=== PATIENT | male | born 1940 | race Caucasian/White ===

== ENCOUNTER 2021-03-09 19:01 | Observation (INO) | payer MEDICARE, OTHER, SELFPAY ==
[2021-03-09] VITALS (8 sets, daily range): BP systolic 135–189; BP diastolic 76–90; PULSE 50–61; RESP 14–18; TEMP 36.6–36.8; O2SAT 95–97; BMI 27.3
[2021-03-09 20:19] LABS: Absolute Neutrophil Count 3.4 X10^3/uL (2.0-7.7); Basophil# 0.02 X10^3/uL; Basophil% 0.4 % (0-1); Eosinophil# 0.08 X10^3/uL; Eosinophils% 1.6 % (0-5); Hematocrit 41.1 % (40-54); Hemoglobin 13.1 g/dL (13.0-16.5); Lymphocyte % 18.5 % (19-41); Mean Corp Hgb Conc 31.9 g/dL (32-36); Mean Corpuscular Hgb 31.3 pg (27.0-32.0); Mean Corpuscular Volume 98.1 fL (80-94); Mean Platelet Vol. 10.5 fl (6.2-12.0); Monocyte# 0.44 X10^3/uL; Monocyte% 9.1 % (0-10); NRBC Flagged by Analyzer 0 % (0-5); Neutrophil # 3.39 X10^3/uL (2.7-7.7); Neutrophil % 69.8 % (47-70); POSITIVE COUNT YES; Platelet Count 60 K/mm3 (150-450); RBC Distribution Width CV 13.2 % (11.6-14.6); RBC Distribution Width SD 48.1 fl (35.1-43.9); Red Blood Count 4.19 M/mm3 (4.6-6.2); White Blood Count 4.9 K/mm3 (4.4-11.0)
[2021-03-09 20:22] LABS: Differential Indicated SCAN CRITERIA MET
[2021-03-09 20:30] LABS: Anion Gap 6 (5-15); BUN 25 mg/dL (7-18); BUN/Creat Ratio 20.2 RATIO (10-20); Calcium,Total 9.2 mg/dL (8.5-10.1); Chloride 113 mmol/L (98-107); Creatinine, Serum 1.24 mg/dL (0.70-1.30); EST Glomerular Filtration Rate 59 mL/min (>60); Est Glom Filt Rate - Afr Amer 72 mL/min (>60); Glucose 115 mg/dL (74-106); Potassium 4.2 mmol/L (3.5-5.1); Sodium Level 143 mmol/L (136-145)
[2021-03-09 20:35] LABS: Platelet Estimate MOD DEC (ADEQ)
[2021-03-09 20:36] LABS: Red Cell Morphology N CHROM NORMAL (NORM C&C)
[2021-03-09 20:40] LABS: Anisocytosis RARE; Macrocytosis RARE; Ovalocyte RARE
[2021-03-09] MEDS: 0.9% Normal Saline 1,000 ML 150 ML IV (21:09)
--- NOTE | 2021-03-09 21:53 | EX.ED.DYSGE1 ---
HPI History of Present Illness Chief Complaint: GI Bleed Informant: patient and spouse/S.O. Onset/Context/Timing Onset: Yesterday Current Severity: Moderate Maximum Severity: Moderate Narrative Narrative: Patient presents secondary to bright red blood per rectum. Patient states symptoms started last night. Today he has had 6 episodes where he feels like he is having diarrhea only to find that he is passing straight blood. He does report some mild rectal pressure but no abdominal pain. No fever or chills. No nausea or vomiting. Prior colonoscopies in the past have revealed benign polyps. He denies any problem with hemorrhoids. He takes a baby aspirin every other day but no other anticoagulants. [facility] Medical History High cholesterol History of COVID-19 Hx of fracture of rib Hypertension Home Medications amlodipine 5 mg PO DAILY 03/09/21 [History Last Taken Unknown] aspirin [Ecotrin Low Strength] 81 mg PO QODAY 03/09/21 [History Last Taken Unknown] citalopram 20 mg PO DAILY 03/09/21 [History Last Taken Unknown] finasteride 5 mg PO DAILY 03/09/21 [History Last Taken Unknown] fluticasone furoate 50 mcg INHALATION DAILY 03/09/21 [History Last Taken Unknown] ropinirole 0.25 mg PO PRN PRN 03/09/21 [History Last Taken Unknown] rosuvastatin 10 mg PO QODAY 03/09/21 [History Last Taken Unknown] tamsulosin 0.4 mg PO BID 03/09/21 [History Last Taken Unknown] valsartan 80 mg PO DAILY 03/09/21 [History Last Taken Unknown] Allergy/AdvReac Type Severity Reaction Status Date / Time amoxicillin [From Augmentin] Allergy Other Verified 03/09/21 19:04 clavulanic acid Allergy Other Verified 03/09/21 19:04 [From Augmentin] lisinopril AdvReac Other Verified 03/09/21 19:04 Social History Smoking Status: Current some day smoker tobacco type: cigarettes ROS ROS ED Constitutional Constitutional ED: Denies chills or fever(s) Eyes Eyes: Denies change in vision ENT ENT ED: Denies sore throat Cardiovascular Cardiovascular: Denies chest pain Respiratory/Chest Respiratory/Chest: Denies cough or dyspnea Gastrointestinal Gastrointestinal: Reports other Details: Hematochezia ; Denies abdominal pain, diarrhea, nausea or vomiting Genitourinary Genitourinary ED: Denies dysuria Musculoskeletal Musculoskeletal: Denies back pain Integumentary Denies rash Neurologic Neurologic: Denies headache(s) or weakness Psychiatric Psychiatric: Denies anxiety or depression Allergic/Immunologic Allergic/Immunologic ED: Denies urticaria EXAM Physical Exam Const Vital Signs: 03/09/21 19:04 03/09/21 21:11 Temperature 98.3 F Temperature Source Temporal Pulse Rate 61 50 L Respiratory Rate 14 18 Blood Pressure 135/83 H 189/90 H Blood Pressure Mean 100 123 Pulse Ox 97 Oxygen Delivery Method Room Air Room Air Positive well nourished and well developed General Appearance ED: well developed HEENT Reports normocephalic and head/scalp atraumatic Eyes PERRL and EOMs intact bilaterally Neck supple Chest Wall inspection of chest normal and palpation of chest normal Resp normal respiratory effort and clear to auscultation bilaterally Cardio regular rate and regular rhythm GI normal to inspection, nondistended, normoactive bowel sounds GI Narrative: Rectal exam: Noninflamed external hemorrhoid with no obvious scab or source of bleeding. Digital exam reveals no masses or palpable internal hemorrhoids. Palpation: soft Rectal Exam: heme positive stool Extremity normal to inspection Neuro oriented x3 and no sensory deficits noted Sensorium / Orientation: alert Motor Exam: strength 5/5 throughout Psych mental status grossly normal Skin no rashes or lesions noted MDM MDM MDM Narrative Medical decision making narrative: Lab work and stool guaiac was obtained. Patient is given IV fluids. Lab Data Attestation: I reviewed the patient's lab results. Labs: Laboratory Results - last 24 hr 03/09/21 03/09/21 20:09 20:09 WBC 4.9 RBC 4.19 L Hgb 13.1 Hct 41.1 MCV 98.1 H MCH 31.3 MCHC 31.9 L RDW Std Deviation 48.1 H RDW Coeff of Randi 13.2 Plt Count 60 L MPV 10.5 Immature Gran % (Auto) 0.600 Neut % (Auto) 69.8 Lymph % (Auto) 18.5 L [place] % (Auto) 9.1 Eos % (Auto) 1.6 Baso % (Auto) 0.4 Absolute Neuts (auto) 3.4 Absolute Lymphs (auto) 0.90 Nucleated RBC % 0 Platelet Estimate MOD DEC RBC Morphology N CHROM Anisocytosis RARE Macrocytosis RARE Ovalocytes RARE Sodium 143 Potassium 4.2 Chloride 113 H Carbon Dioxide 24.0 Anion Gap 6 BUN 25 H Creatinine 1.24 Estim Creat Clear Calc 45.20 Est GFR (MDRD) Af Amer 72 Est GFR (MDRD) Non-Af 59 L BUN/Creatinine Ratio 20.2 H Glucose 115 H Calcium 9.2 Treatment and Re-Evaluation Comments:: Most recent hemoglobin I could find was from July 2020 at which time it was 14. With the amount of bleeding patient is having I would prefer observation overnight for cycling of labs. Patient's platelet count is low at 60,000. On review of records it was 87,000 in July of this year. Discharge Plan Triage Chief Complaint: GI Bleed ED Provider: Beatriz Bajwa Dx/Rx/DC Orders Clinical Impression: GI bleed Prescriptions: No Action valsartan 80 mg Tablet 80 mg PO DAILY RF: 0 amlodipine 5 mg Tablet 5 mg PO DAILY RF: 0 aspirin [Ecotrin Low Strength] 81 mg Tablet,Delayed Release (Dr/Ec) 81 mg PO QODAY RF: 0 citalopram 20 mg Tablet 20 mg PO DAILY RF: 0 tamsulosin 0.4 mg Capsule 0.4 mg PO BID RF: 0 ropinirole 0.25 mg Tablet 0.25 mg PO PRN PRN (Reason: Sleep) RF: 0 finasteride 5 mg Tablet 5 mg PO DAILY RF: 0 rosuvastatin 10 mg Tablet 10 mg PO QODAY RF: 0 fluticasone furoate 50 mcg/actuation Blister With Device 50 mcg INHALATION DAILY RF: 0 Primary Care Provider: Adam Lynn Referrals: Adam Lynn MD [Primary Care Provider] - Disposition Disposition: Acute Care Hospital [facility]
--- NOTE | 2021-03-09 22:23 | HP.PCM.HOS_ITS ---
[facility] - General General Date of Admission: 03/09/21 HPI Narrative STARLA GALE, is a 80 M with a significant history of benign prostate hypertrophy who presents to the emergency department with bright red blood per rectum. His symptoms started a day before presentation where he had an episode of bright blood red per rectum. On the day of presentation he had about 6 episodes of bright red blood. He denies any nausea, vomiting, or abdominal pain. He reports anorexia. About 20 years ago colonoscopy showed benign polyps. Thereafter he has not had any further colonoscopy. He takes a baby aspirin every other day. He had a COVID-19 virus infection about 4 weeks ago and just got out of quarantine a week before presentation. Emergency department doctor reports non bleeding external hemorrhoids on examination. Of note he reported about 2 months ago he had a fractured rib and follow-up exams showed some spots on his liver and that he has a follow-up appointment in April 2021. [facility] Medical History High cholesterol History of COVID-19 Hx of fracture of rib Hypertension Home Medications amlodipine 5 mg PO DAILY 03/09/21 [History Last Taken Unknown] aspirin [Ecotrin Low Strength] 81 mg PO QODAY 03/09/21 [History Last Taken Unknown] citalopram 20 mg PO DAILY 03/09/21 [History Last Taken Unknown] finasteride 5 mg PO DAILY 03/09/21 [History Last Taken Unknown] fluticasone furoate 50 mcg INHALATION DAILY 03/09/21 [History Last Taken Unknown] ropinirole 0.25 mg PO PRN PRN 03/09/21 [History Last Taken Unknown] rosuvastatin 10 mg PO QODAY 03/09/21 [History Last Taken Unknown] tamsulosin 0.4 mg PO BID 03/09/21 [History Last Taken Unknown] valsartan 80 mg PO DAILY 03/09/21 [History Last Taken Unknown] Allergy/AdvReac Type Severity Reaction Status Date / Time amoxicillin [From Augmentin] Allergy Other Verified 03/09/21 19:04 clavulanic acid Allergy Other Verified 03/09/21 19:04 [From Augmentin] lisinopril AdvReac Other Verified 03/09/21 19:04 Family History Mother Cancer Sister Cancer Other Heart disease Surgical History History of herniorrhaphy Social History Smoking Status: Former smoker ROS ROS Narrative Constitutional: Reports anorexia. Denies change in weight Eyes: Denies blurry vision, change in eye color, change in vision, discharge from eye(s), double vision, erythema, eye pain, loss of vision or other HEENT: Denies abnormal hearing, dysphagia, ear pain, epistaxis, headache(s), hearing loss, nasal congestion, nasal discharge, post nasal drip, sinus pressure, sore throat or other Cardiovascular: Denies chest pain. Denies dyspnea on exertion, orthopnea and paroxysmal nocturnal dyspnea Respiratory/Chest: Denies cough, excessive phlegm production, shortness of breath with exertion and wheezing Gastrointestinal: Reports hematochezia. Denies abdominal pain, coffee ground emesis, constipation, diarrhea, dyspepsia, hematemesis, nausea, vomiting or other Genitourinary: Denies burning urination, difficulty urinating, dysuria, hematuria, nocturia, urinary frequency, urinary hesitancy, urinary incontinence, urinary urgency or other Musculoskeletal: Denies arthralgias, back pain, joint pain, joint stiffness, joint swelling, myalgias, neck pain or other Neurologic: Denies abnormal gait, abnormal speech, confusion, disequilibrium, dizziness, focal weakness, headache(s), numbness, paresthesias, seizure-like activity, seizures, syncope, tingling, tremor(s) or other Psychiatric: Denies anxiety, depression, homicidal ideation, suicidal ideation or other Endocrinology: Denies change in body appearance, cold intolerance, excessive sweating, heat intolerance, polydipsia, polyuria or other Hematologic/Lymphatic: Denies anemia, easy bleeding, easy bruising, lymphadenopathy or other Integumentary: Denies ulcer on buttocks. Allergic/Immunologic: Denies rhinitis, hives, eczema, asthma or other Vital Signs Vital Signs Vital Signs: 03/09/21 19:04 03/09/21 21:11 03/09/21 22:06 Temperature 98.3 F 98.2 F Temperature Source Temporal Temporal Pulse Rate 61 50 L 50 L Respiratory Rate 14 18 18 Blood Pressure 135/83 H 189/90 H 189/90 H Blood Pressure Mean 100 123 123 Pulse Ox 97 97 Oxygen Delivery Method Room Air Room Air Room Air Weight Weight: 81.4 kg Body Mass Index (BMI) 27.3 Physical Exam Narrative Physical exam: General: Well-nourished, well-developed, no acute distress Head: Normocephalic, atraumatic, no tenderness Eyes: PERRLA, EOMI ENT, no trauma, moist mucous membranes, no rhinorrhea Neck: Nontender, full range of motion, no spinal tenderness, deformities, step- off CVS: Regular rate and rhythm Respiratory no acute distress, clear to auscultation bilaterally, chest wall nontender, no wheezing Abdomen: Soft, nontender, nondistended, normal bowel sounds, no masses : Deferred Back: Nontender, no CVA tenderness, no midline spinal tenderness, deformities, step-offs Extremities: Nontender full range of motion, no trauma Skin: Normal color, no trauma, abrasions Neuro: Alert, oriented, cranial nerves II through XII grossly intact. Psychiatry: Normal mood. Normal affect. Not depressed. Not anxious. Results Lab / Micro Data Result Diagrams: 03/09/21 20:09 03/09/21 20:09 Labs: Laboratory Results - last 24 hr 03/09/21 20:09: WBC 4.9, RBC 4.19 L, Hgb 13.1, Hct 41.1, MCV 98.1 H, MCH 31.3, MCHC 31.9 L, RDW Std Deviation 48.1 H, RDW Coeff of Randi 13.2, Plt Count 60 L, MPV 10.5, Immature Gran % (Auto) 0.600, Neut % (Auto) 69.8, Lymph % (Auto) 18.5 L, [place] % (Auto) 9.1, Eos % (Auto) 1.6, Baso % (Auto) 0.4, Absolute Neuts (auto) 3.4, Absolute Lymphs (auto) 0.90, Nucleated RBC % 0, Platelet Estimate MOD DEC, RBC Morphology N CHROM, Anisocytosis RARE, Macrocytosis RARE, Ovalocytes RARE 03/09/21 20:09: Sodium 143, Potassium 4.2, Chloride 113 H, Carbon Dioxide 24.0, Anion Gap 6, BUN 25 H, Creatinine 1.24, Estim Creat Clear Calc 45.20, Est GFR (MDRD) Af Amer 72, Est GFR (MDRD) Non-Af 59 L, BUN/Creatinine Ratio 20.2 H, Glucose 115 H, Calcium 9.2 Micro: Microbiology 03/09/21 20:40 Stool Stool Occult Blood (JOSE M) - Final Occult Blood Positive Assessment & Plan Assessment/Plan (1) Lower GI bleed: (2) Hypertensive urgency: PLAN: Lower GI bleed Review of Emergency department labs showed hemoglobin of 13.1. Diverticular bleed. Hemoglobin is normal. Platelet is low at 60. Low platelet like secondary to GI bleed. Review of community records shows that on 07/26/2020 platelet was 87. Conservative management with trending of CBC. Hold aspirin. Gentle IV hydration. Review of community records showed that BUN on 07/26/2009 21 was 22. Current BUN is 25. No significant change. N.p.o. after midnight. Hypertension urgency Systolic blood pressure is more than 180. Amlodipine and losartan continued. As needed hydralazine ordered. Trend blood pressure and adjust blood pressure medications. BPH Finasteride and tamsulosin continued. Hyperlipidemia Rosuvastatin concern DVT prophylaxis: SCD ordered. Avoid chemical thromboprophylaxis Charges/Coding Visit Charges OBSV E&M: 07645 Initial observation care L3
[2021-03-09] MEDS: 0.9% Normal Saline 1,000 ML 75 ML IV (23:27)
[2021-03-09] MEDS: hydrALAZINE 20 MG/ML Vial 5 MG IV (23:28)
[2021-03-10] VITALS (9 sets, daily range): BP systolic 125–170; BP diastolic 70–88; PULSE 61–74; RESP 16–18; TEMP 36.7–36.9; O2SAT 94–96
[2021-03-10 02:03] LABS: Hemoglobin 11.7 g/dL (13.0-16.5); Mean Corp Hgb Conc 32.5 g/dL (32-36); Mean Corpuscular Volume 95.5 fL (80-94); Mean Platelet Vol. 10.9 fl (6.2-12.0); POSITIVE COUNT YES; Platelet Count 53 K/mm3 (150-450); RBC Distribution Width CV 13.1 % (11.6-14.6); RBC Distribution Width SD 46.7 fl (35.1-43.9); Red Blood Count 3.77 M/mm3 (4.6-6.2); White Blood Count 4.4 K/mm3 (4.4-11.0)
[2021-03-10] MEDS: hydrALAZINE 20 MG/ML Vial 5 MG IV (04:52)
[2021-03-10] MEDS: Budesonide Respules 0.5 MG/2 ML AMPUL.NEB. INHALATION (07:10)
[2021-03-10] MEDS: Citalopram 20 MG Tablet PO (08:38)
[2021-03-10] MEDS: amLODIPine 5 MG Tablet PO (08:38)
[2021-03-10] MEDS: Tamsulosin HCl 0.4 MG Capsule PO (08:38)
[2021-03-10] MEDS: Losartan Potassium 25 MG Tablet PO (08:38)
[2021-03-10 08:39] LABS: Hematocrit 37.4 % (40-54); Hemoglobin 12.3 g/dL (13.0-16.5); Mean Corp Hgb Conc 32.9 g/dL (32-36); Mean Corpuscular Hgb 31.3 pg (27.0-32.0); Mean Corpuscular Volume 95.2 fL (80-94); Mean Platelet Vol. 10.5 fl (6.2-12.0); POSITIVE COUNT YES; Platelet Count 57 K/mm3 (150-450); RBC Distribution Width CV 13.2 % (11.6-14.6); RBC Distribution Width SD 46.3 fl (35.1-43.9); Red Blood Count 3.93 M/mm3 (4.6-6.2); White Blood Count 4.6 K/mm3 (4.4-11.0)
[2021-03-10] MEDS: Finasteride 5 MG Tablet PO (08:39)
[2021-03-10 08:40] LABS: Scan Indicated on CBC? Y/N NO
--- NOTE | 2021-03-10 11:42 | PCM.DC ---
Discharge Instructions Diet Discharge Diet: No restrictions Activity Discharge Activity: Return to Normal Activity Dressing / Incision Call your doctor if you observe: - (blood in stool. dark, tarry stools) Follow Up Care Test Results: Test results from this visit will be discussed in further detail at your follow-up appointment, if applicable. Discharge Plan Admission Admit Date/Time: 03/09/21 22:22 Primary Reason for Your Visit: blood in stool Attending Provider: Augustin Harrison Primary Care Provider: Adam Lynn Discharge Orders/Prescriptions Prescriptions: Continued valsartan 80 mg Tablet 80 mg PO DAILY RF: 0 amlodipine 5 mg Tablet 5 mg PO DAILY RF: 0 citalopram 20 mg Tablet 20 mg PO DAILY RF: 0 tamsulosin 0.4 mg Capsule 0.4 mg PO BID RF: 0 ropinirole 0.25 mg Tablet 0.25 mg PO PRN PRN (Reason: restless legs) RF: 0 finasteride 5 mg Tablet 5 mg PO DAILY RF: 0 rosuvastatin 10 mg Tablet 10 mg PO QODAY RF: 0 fluticasone furoate 50 mcg/actuation Blister With Device 50 mcg INHALATION QHS RF: 0 PreserVision AREDS [id number] Capsule 1 cap PO BID RF: 0 Discontinued aspirin [Ecotrin Low Strength] 81 mg Tablet,Delayed Release (Dr/Ec) 81 mg PO QODAY RF: 0 Referrals / Follow Up: Darian Loera DO [STAFF PHYSICIAN] - Within 1 Month (GI bleed, suspect diverticular.) Adam Lynn MD [Primary Care Provider] - Within 1 Week Disposition Disposition (needs filled in before D/C Order can be placed): Home, Self Care
--- NOTE | 2021-03-10 11:44 | DS.PCM_ITS ---
Providers Date of Admission: 03/09/21 Primary Care Physician: Adam Lynn MD Reason For Visit: ACUTE GI BLEED Diagnosis Discharge Diagnosis (1) Lower GI bleed: Status: Acute Code(s): K92.2 - Gastrointestinal hemorrhage, unspecified (2) Hypertensive urgency: Status: Acute Code(s): I16.0 - Hypertensive urgency Medications at Discharge Home Medications PreserVision AREDS 1 cap PO BID 03/09/21 amlodipine 5 mg PO DAILY 03/09/21 citalopram 20 mg PO DAILY 03/09/21 finasteride 5 mg PO DAILY 03/09/21 fluticasone furoate 50 mcg INHALATION QHS 03/09/21 ropinirole 0.25 mg PO PRN PRN 03/09/21 rosuvastatin 10 mg PO QODAY 03/09/21 tamsulosin 0.4 mg PO BID 03/09/21 valsartan 80 mg PO DAILY 03/09/21 Hospital Course Operations None Procedures None Summary of Care Provided Minutes Spent on Discharge: 28 Hospital Course: 80 yo male presents with hematochezia x6. Painless. None prior. Now resolved. Suspect due to diverticulosis + ASA + chronic thrombocytopenia. Advise f/u with GI for colonoscopy for eval. DC home. Stop ASA. Physical Exam Const alert Resp normal respiratory effort, no retractions and no use of accessory muscles Cardio regular rate, regular rhythm, S1 normal heart sound and S2 normal heart sound GI normal to inspection, nondistended, normoactive bowel sounds Extremity normal to inspection Neuro Sensorium / Orientation: awake and alert Weight / BMI Weight Weight: 81.6 kg Body Mass Index (BMI) 27.3 ABG / Lab / Microbiology Data Result Diagrams: 03/10/21 08:16 03/09/21 20:09 Laboratory: Laboratory Results - last 24 hr 03/09/21 20:09: WBC 4.9, RBC 4.19 L, Hgb 13.1, Hct 41.1, MCV 98.1 H, MCH 31.3, MCHC 31.9 L, RDW Std Deviation 48.1 H, RDW Coeff of Randi 13.2, Plt Count 60 L, MPV 10.5, Immature Gran % (Auto) 0.600, Neut % (Auto) 69.8, Lymph % (Auto) 18.5 L, [place] % (Auto) 9.1, Eos % (Auto) 1.6, Baso % (Auto) 0.4, Absolute Neuts (auto) 3.4, Absolute Lymphs (auto) 0.90, Nucleated RBC % 0, Platelet Estimate MOD DEC, RBC Morphology N CHROM, Anisocytosis RARE, Macrocytosis RARE, Ovalocytes RARE 03/09/21 20:09: Sodium 143, Potassium 4.2, Chloride 113 H, Carbon Dioxide 24.0, Anion Gap 6, BUN 25 H, Creatinine 1.24, Estim Creat Clear Calc 45.20, Est GFR (MDRD) Af Amer 72, Est GFR (MDRD) Non-Af 59 L, BUN/Creatinine Ratio 20.2 H, Glucose 115 H, Calcium 9.2 03/10/21 01:55: WBC 4.4, RBC 3.77 L, Hgb 11.7 L, Hct 36.0 L, MCV 95.5 H, MCH 31.0, MCHC 32.5, RDW Std Deviation 46.7 H, RDW Coeff of Randi 13.1, Plt Count 53 L , MPV 10.9 03/10/21 08:16: WBC 4.6, RBC 3.93 L, Hgb 12.3 L, Hct 37.4 L, MCV 95.2 H, MCH 31.3, MCHC 32.9, RDW Std Deviation 46.3 H, RDW Coeff of Randi 13.2, Plt Count 57 L , MPV 10.5 Microbiology: Microbiology 03/09/21 22:08 Mucosa - Nose SARS-CoV-2 Antigen (Rapid) - Final 03/09/21 20:40 Stool Stool Occult Blood (JOSE M) - Final Occult Blood Positive D/C Instructions Discharge Diet: No restrictions Call your doctor if you observe: - (blood in stool. dark, tarry stools) Meaningful Use Info Meaningful Use Diagnoses (Choose all that apply): None applicable Discharge Plan Admission Admit Date/Time: 03/09/21 22:22 Primary Reason for Your Visit: blood in stool Attending Provider: Augustin Harrison Primary Care Provider: Adam Lynn Discharge Orders/Prescriptions Prescriptions: Continued valsartan 80 mg Tablet 80 mg PO DAILY RF: 0 amlodipine 5 mg Tablet 5 mg PO DAILY RF: 0 citalopram 20 mg Tablet 20 mg PO DAILY RF: 0 tamsulosin 0.4 mg Capsule 0.4 mg PO BID RF: 0 ropinirole 0.25 mg Tablet 0.25 mg PO PRN PRN (Reason: restless legs) RF: 0 finasteride 5 mg Tablet 5 mg PO DAILY RF: 0 rosuvastatin 10 mg Tablet 10 mg PO QODAY RF: 0 fluticasone furoate 50 mcg/actuation Blister With Device 50 mcg INHALATION QHS RF: 0 PreserVision AREDS [id number] Capsule 1 cap PO BID RF: 0 Discontinued aspirin [Ecotrin Low Strength] 81 mg Tablet,Delayed Release (Dr/Ec) 81 mg PO QODAY RF: 0 Referrals / Follow Up: Darian Loera DO [STAFF PHYSICIAN] - Within 1 Month (GI bleed, suspect diverticular.) Adam Lynn MD [Primary Care Provider] - Within 1 Week Disposition Disposition (needs filled in before D/C Order can be placed): Home, Self Care Charges/Coding Visit Charges OBSV E&M: 51905 Observation care discharge
== END 2021-03-10 12:54 | disposition home or self-care (01) ==
LOC: ED 22:30 → MS3 22:41
PROVIDERS: Admitting Provider Hospitalist; Emergency Provider Emergency Medicine; PCP Family Medicine
DX: K92.1 Melena (principal); I16.0 Hypertensive urgency; D69.6 Thrombocytopenia, unspecified; I10 Essential (primary) hypertension; F17.210 Nicotine dependence, cigarettes, uncomplicated; K64.4 Residual hemorrhoidal skin tags; N40.0 Benign prostatic hyperplasia without lower urinary tract symptoms; E78.5 Hyperlipidemia, unspecified; Z79.899 Other long term (current) drug therapy; Z79.82 Long term (current) use of aspirin; Z79.51 Long term (current) use of inhaled steroids; Z86.16 Personal history of COVID-19
CPT/HCPCS: 36415; 80048; 82274; 85025; 85027; 87426; 94640; 96361; 96374; 96376; 99218; 99283; 99406; J7030; A4216; G0378

== ENCOUNTER 2021-03-20 10:47 | Emergency (ER) | payer MEDICARE, OTHER, SELFPAY ==
[2021-03-20 10:48] VITALS: BP 128/62; PULSE 68; RESP 18; TEMP 36.6; O2SAT 97; BMI 27.6
[2021-03-20 11:13] LABS: Absolute Neutrophil Count 3.2 X10^3/uL (2.0-7.7); Basophil# 0.03 X10^3/uL; Basophil% 0.7 % (0-1); Eosinophil# 0.14 X10^3/uL; Eosinophils% 3.2 % (0-5); Hematocrit 33.1 % (40-54); Hemoglobin 10.9 g/dL (13.0-16.5); Lymphocyte % 16.1 % (19-41); Mean Corp Hgb Conc 32.9 g/dL (32-36); Mean Corpuscular Hgb 31.3 pg (27.0-32.0); Mean Corpuscular Volume 95.1 fL (80-94); Mean Platelet Vol. 10.9 fl (6.2-12.0); Monocyte% 6.9 % (0-10); NRBC Flagged by Analyzer 0 % (0-5); Neutrophil # 3.16 X10^3/uL (2.7-7.7); Neutrophil % 72.9 % (47-70); POSITIVE COUNT YES; Platelet Count 93 K/mm3 (150-450); RBC Distribution Width CV 13.2 % (11.6-14.6); RBC Distribution Width SD 45.6 fl (35.1-43.9); Red Blood Count 3.48 M/mm3 (4.6-6.2); White Blood Count 4.3 K/mm3 (4.4-11.0)
[2021-03-20 11:18] LABS: Differential Indicated SCAN CRITERIA MET
[2021-03-20 11:19] LABS: Anion Gap 4 (5-15); BUN 21 mg/dL (7-18); BUN/Creat Ratio 17.5 RATIO (10-20); Calcium,Total 8.9 mg/dL (8.5-10.1); Chloride 115 mmol/L (98-107); EST Glomerular Filtration Rate 62 mL/min (>60); Est Glom Filt Rate - Afr Amer 75 mL/min (>60); Estimated Creatinine Clearance 46.71 ml/min; Glucose 170 mg/dL (74-106); Potassium 3.9 mmol/L (3.5-5.1); Sodium Level 144 mmol/L (136-145)
[2021-03-20 11:57] LABS: Platelet Estimate MOD DEC (ADEQ)
[2021-03-20 12:04] VITALS: BP 157/70; PULSE 48; RESP 18; O2SAT 97
--- NOTE | 2021-03-20 12:48 | EDS_ITS ---
HPI HPI - GI History of Present Illness Chief Complaint: GI Bleed Informant: patient Abdominal Pain/Flank Pain Onset: Today Nausea/Vomiting/Emesis GI Symptom: Negative for Nausea and Vomiting Diarrhea/Melena/Hematochezia GI Symptom: Positive for Hematochezia; Negative for Diarrhea and Melena Onset: Days Stool Quality: Positive for BRB per rectum Severity: Moderate Associated Symptoms Associated Symptoms: Negative for Dysuria, Frequency and Hematuria Narrative Narrative: Patient is an elderly male who presents from his primary care physician's office because of bright red blood per rectum. He was seen last week and had an overnight stay for bright red blood. He states he was not scoped. He denies history of hemorrhoids. He is not on an anticoagulant. He denies history of diverticulosis or diverticulitis. He denies abdominal pain. He denies nausea or vomiting. He states he feels slower than normal. Hemoglobin last week was 12.3. He denies bruising easily. Denies blood in his urine. He denies bleeding from his gums. Prior similar symptoms: Yes Recent Illness/Hospitalization: Yes PFSH PFS Medical History BPH (benign prostatic hyperplasia) Depression High cholesterol History of COVID-19 Hx of fracture of rib Hypertension Macular degeneration Pilonidal cyst Home Medications PreserVision AREDS 1 cap PO BID 03/09/21 [History Last Taken 03/09/21] amlodipine 5 mg PO DAILY 03/09/21 [History Last Taken 03/09/21] citalopram 20 mg PO DAILY 03/09/21 [History Last Taken 03/09/21] finasteride 5 mg PO DAILY 03/09/21 [History Last Taken 03/09/21] fluticasone furoate 50 mcg INHALATION QHS 03/09/21 [History Last Taken 03/08/21] ropinirole 0.25 mg PO PRN PRN 03/09/21 [History Last Taken Unknown] rosuvastatin 10 mg PO QODAY 03/09/21 [History Last Taken 03/08/21] tamsulosin 0.4 mg PO BID 03/09/21 [History Last Taken 03/09/21] valsartan 80 mg PO DAILY 03/09/21 [History Last Taken 03/09/21] Allergy/AdvReac Type Severity Reaction Status Date / Time amoxicillin [From Augmentin] Allergy Other Verified 03/20/21 11:00 clavulanic acid Allergy Other Verified 03/20/21 11:00 [From Augmentin] lisinopril AdvReac Other Verified 03/20/21 11:00 Family History Mother Cancer Sister Cancer Other Heart disease Surgical History History of herniorrhaphy Social History (Updated 03/20/21 @ 12:[address] Terry Dodson MD) household members: none Smoking Status: Current some day smoker tobacco type: cigarettes alcohol intake: current alcohol intake frequency: other substance use type: does not use ROS ROS ED Constitutional Constitutional ED: Denies chills, fever(s), subjective or sweats ENT ENT ED: Denies ear pain, rhinorrhea or sore throat Cardiovascular Cardiovascular: Denies chest pain, orthopnea, palpitations or paroxysmal nocturnal dyspnea Respiratory/Chest Respiratory/Chest: Denies cough, dyspnea, dyspnea on exertion, orthopnea, paroxysmal nocturnal dyspnea or sputum Gastrointestinal Gastrointestinal: Reports other Details: Hematochezia ; Denies abdominal pain, constipation, diarrhea, melena, nausea or vomiting Genitourinary Genitourinary ED: Denies dysuria, hematuria or urinary frequency Musculoskeletal Musculoskeletal: Denies arthralgias, back pain, myalgias or neck pain Integumentary Denies rash Neurologic Neurologic: Reports weakness; Denies headache(s) or paresthesias Endocrine Endocrinology: Denies polydipsia, polyphagia or polyuria Hematologic/Lymphatic Hematologic/Lymphatic: Denies easy bleeding or easy bruising EXAM Physical Exam Const Vital Signs: 03/20/21 10:48 03/20/21 12:04 03/20/21 13:25 Temperature 97.8 F Temperature Source Temporal Pulse Rate 68 48 L Pulse Rate [Lying] 48 L Pulse Rate [Sitting] 54 L Pulse Rate [Standing] 68 Respiratory Rate 18 18 Blood Pressure 128/62 H 157/70 H Blood Pressure [Lying] 152/73 H Blood Pressure [Sitting] 159/77 H Blood Pressure [Standing] 155/73 H Blood Pressure Mean 84 99 Blood Pressure Mean [Lying] 99 Blood Pressure Mean [Sitting] 104 Blood Pressure Mean [Standing] 100 Pulse Ox 97 97 Oxygen Delivery Method Room Air Room Air Positive well nourished and well developed General Appearance ED: well developed and NAD HEENT Reports TM's clear and moist mucous membranes normocephalic and atraumatic Tympanic Membrane ED: Yes TM's clear Eyes PERRL and EOMs intact bilaterally General Eye ED: Negative for pale conjunctiva or scleral icterus Neck no lymphadenopathy, supple and no JVD Resp normal respiratory effort and clear to auscultation bilaterally Cardio regular rate, regular rhythm, S1 normal heart sound, S2 normal heart sound and no murmurs GI non-tender, non-distended and no masses GI Narrative: There is remnants of prior hemorrhoids. There is no fissures or fistulas noted. Stool is brown. Auscultation: normoactive bowel sounds Palpation: soft Back/Spine no CVA tenderness Cervical Spine: Negative for cervical spine tenderness Thoracic Spine / Upper Back: Negative for thoracic spinal tenderness Lumbar Spine / Lower Back: Negative for lumbar spinal tenderness Extremity full ROM General Extremety ED: Negative for edema or tenderness General Extremity: Negative for edema Neuro CN's II-XII intact bilaterally Sensorium / Orientation: alert, oriented to person, oriented to place and oriented to time Motor Exam: strength 5/5 throughout Psych mental status grossly normal and thought process normal Skin no wounds Lesions: no lesions Rashes: no rashes MDM MDM MDM Narrative Medical decision making narrative: Patient presents because of bright red blood per rectum. He had an overnight stay last week. He did not have a scope done. He was not referred to anyone. He presents because of bright red blood when he goes to the bathroom. He states there is significant mount of blood when he goes. Patient's hemoglobin has dropped approximately 1.5 g. His orthostatic vitals are normal. He does report generalized weakness. He does not have a preference regarding [facility] versus [facility] surgeon. He was referred to the surgeon on-call Dr. Sauceda. Will discuss case. Case discussed with surgeon. Outpatient work-up. He was made aware of patient's history, physical and laboratory results Lab Data Attestation: I reviewed the patient's lab results. Lab results narrative: There is approximately 1.5 g drop in hemoglobin. BUN to creatinine ratio is normal. Labs: Laboratory Results - last 24 hr 03/20/21 03/20/21 03/20/21 10:50 10:50 10:50 WBC 4.3 L RBC 3.48 L Hgb 10.9 L Hct 33.1 L MCV 95.1 H MCH 31.3 MCHC 32.9 RDW Std Deviation 45.6 H RDW Coeff of Randi 13.2 Plt Count 93 L MPV 10.9 Immature Gran % (Auto) 0.200 Neut % (Auto) 72.9 H Lymph % (Auto) 16.1 L Stearns % (Auto) 6.9 Eos % (Auto) 3.2 Baso % (Auto) 0.7 Absolute Neuts (auto) 3.2 Absolute Lymphs (auto) 0.70 L Nucleated RBC % 0 Platelet Estimate MOD DEC Sodium 144 Potassium 3.9 Chloride 115 H Carbon Dioxide 25.0 Anion Gap 4 L BUN 21 H Creatinine 1.20 Estim Creat Clear Calc 46.71 Est GFR (MDRD) Af Amer 75 Est GFR (MDRD) Non-Af 62 BUN/Creatinine Ratio 17.5 Glucose 170 H Calcium 8.9 Blood Type A POSITIVE Antibody Screen NEGATIVE Procedures Other Procedures Procedure(s): Anoscopy: Anoscopy was performed. Patient has hemorrhoid noted at 11:00 lithotomy position. The rectal mucosa appears normal. There is no blood noted above the scope. There is no blood noted in the rectal vault. Discharge Plan Triage Chief Complaint: GI Bleed ED Provider: Terry Dodsno Dx/Rx/DC Orders Clinical Impression: Bleeding external hemorrhoids, Anemia due to gastrointestinal blood loss Instructions: ED Hemorrhoids Prescriptions: No Action valsartan 80 mg Tablet 80 mg PO DAILY RF: 0 amlodipine 5 mg Tablet 5 mg PO DAILY RF: 0 citalopram 20 mg Tablet 20 mg PO DAILY RF: 0 tamsulosin 0.4 mg Capsule 0.4 mg PO BID RF: 0 ropinirole 0.25 mg Tablet 0.25 mg PO PRN PRN (Reason: restless legs) RF: 0 finasteride 5 mg Tablet 5 mg PO DAILY RF: 0 rosuvastatin 10 mg Tablet 10 mg PO QODAY RF: 0 fluticasone furoate 50 mcg/actuation Blister With Device 50 mcg INHALATION QHS RF: 0 PreserVision AREDS [id number] Capsule 1 cap PO BID RF: 0 Primary Care Provider: Adam Lynn Referrals: Brandan Sauceda MD [STAFF PHYSICIAN] - As soon as possible Adam Lynn MD [Primary Care Provider] - Disposition Disposition: Home, Self Care
[2021-03-20 13:25] VITALS: BP 152/73; BP 155/73; BP 159/77; PULSE 48; PULSE 54; PULSE 68
[2021-03-20 15:04] VITALS: BP 161/74; PULSE 80; RESP 16; O2SAT 99
== END 2021-03-20 15:05 | disposition home or self-care (01) ==
PROVIDERS: Emergency Provider Emergency Medicine; PCP Family Medicine
DX: K64.4 Residual hemorrhoidal skin tags (principal); D50.0 Iron deficiency anemia secondary to blood loss (chronic); F17.210 Nicotine dependence, cigarettes, uncomplicated; N40.0 Benign prostatic hyperplasia without lower urinary tract symptoms; F32.9 Major depressive disorder, single episode, unspecified; E78.00 Pure hypercholesterolemia, unspecified; I10 Essential (primary) hypertension; Z79.899 Other long term (current) drug therapy; Z86.16 Personal history of COVID-19
CPT/HCPCS: 80048; 85025; 86850; 86900; 86901; 99285

== ENCOUNTER 2021-03-23 06:21 | Day surgery (SDC) | payer MEDICARE, OTHER, SELFPAY ==
[2021-03-23] MEDS: Lactated Ringers 1,000 ML 100 ML IV (06:35)
[2021-03-23 06:53] VITALS: BP 136/69; PULSE 48; RESP 16; TEMP 36.6; O2SAT 99; BMI 26.7
--- NOTE | 2021-03-23 07:23 | PCM.HP.BLA ---
History and Physical Date of Admission: 03/23/21 MR#:[id number]:[id number]: STARLA GALE [facility] #:[id number]:1940 Provider:Dr. Brandan Sauceda MDAge/Sex: 80/M [facility] Vital Signs 03/21/21 09:17 Height 5 ft 8 in Weight: 181 lb BMI 27.5 BP 114/69 Blood Pressure Location Rt brachial Position Sitting Respiration 18 Pulse 66 Pulse Source Monitor Temp 97.6 F L Temp Source Temporal Pulse Oximetry (%) 96 Oxygen Delivery Method room air Intake Visit Reasons: ER F/U Discuss Scope Chief Complaint: rectal bleeding Cosmetic Chemist Required: No Is patient in pain?: No Allergies amoxicillin [From Augmentin] Allergy (Verified 03/21/21 09:18) Other clavulanic acid [From Augmentin] Allergy (Verified 03/21/21 09:18) Other lisinopril Adverse Reaction (Verified 03/21/21 09:18) Other Medications PreserVision AREDS 1 cap PO BID 03/09/21 [History Confirmed 03/21/21] amlodipine 5 mg PO DAILY 03/09/21 [History Confirmed 03/21/21] citalopram 20 mg PO DAILY 03/09/21 [History Confirmed 03/21/21] finasteride 5 mg PO DAILY 03/09/21 [History Confirmed 03/21/21] fluticasone furoate 50 mcg INHALATION QHS 03/09/21 [History Confirmed 03/21/21] ropinirole 0.25 mg PO PRN PRN 03/09/21 [History Confirmed 03/21/21] rosuvastatin 10 mg PO QODAY 03/09/21 [History Confirmed 03/21/21] tamsulosin 0.4 mg PO BID 03/09/21 [History Confirmed 03/21/21] valsartan 80 mg PO DAILY 03/09/21 [History Confirmed 03/21/21] PFSH Medical History (Updated 03/21/21 @ 10:[address] Brandan Sauceda MD) Anemia due to gastrointestinal blood loss Bleeding external hemorrhoids BPH (benign prostatic hyperplasia) Depression High cholesterol History of COVID-19 Hx of fracture of rib Hypertension Macular degeneration Pilonidal cyst Surgical History (Updated 03/21/21 @ 09:16 by Tamia Guo) History of cataract surgery History of excision of pilonidal cyst History of herniorrhaphy Family History Mother Cancer Sister Cancer Other Heart disease Social History household members: none Smoking Status: Current some day smoker tobacco type: cigarettes alcohol intake: current alcohol intake frequency: other substance use type: does not use HPI HPI HPI: STARLA GALE, is a 80, active M who presents to the office today for need to schedule diagnostic colonoscopy secondary to Recent bleeding per rectum. They are referred for surgical consultation from ER. Mr. Gale states that he has had 2 ER visits in the last 2 weeks after developing bright red blood per rectum with nearly every bowel movement. He states that he has bowel movements 2-3 times daily and has had blood with each aside from his bowel movement this morning. His ER laboratory studies yesterday showed that his hemoglobin had fallen by 1.5 g/dL since last week to a value of 10.9 g/dL. Patient has had prior colonoscopy?approximately 20 years ago through the [facility]. He recalls that polyps were found during this exam, but was not given further follow-up. In addition to the bleeding, Mr. Gale notes some new weakness/fatigue and approximately 5 to 6 pounds weight loss. This latter issue he attributes to a lack of appetite. He states that he is simply eating in smaller quantities at this point. Patient has no personal history of inflammatory bowel disease, diverticulitis, or colon cancer. Generally, they describe their bowel habits as normal, soft, with no problems of constipation or prolonged toilet time. Mr. Gale states that he has no history of hemorrhoidal disease. They do not regularly take fiber supplements. Patient has no known family history of colon cancer, but states that his mother passed at age 57 secondary to bone cancer and brother was diagnosed in his 20s with testicular cancer (but is alive and well today). Mr. Gale confirms that he is generally active (doing frequent yard work. However, approximately 2 months ago he was trimming a vargas and fell from a ladder resulting in a number of right-sided rib fractures. During work-up for this injury, he was confirmed to have a small hemothorax and states that there was potentially an incidental imaging finding in his liver. Advanced imaging with CT was performed and he has been referred for further evaluation. Additionally, Mr. Gale notes that he experienced a breakthrough Covid infection beginning of February after being initially and vaccinated in August. He now denies any lingering shortness of breath or chest pain. Mr. Gale's only blood thinner use is a baby aspirin a day. ROS General General: Yes weight change and fatigue; No appetite, colon cancer, breast cancer or weakness HEENT HEENT: No difficulty swallowing, eye injury, eye surgery, swollen glands or hoarseness Endo Endocrine: No thyroid disease, diabetes mellitus, thyroid cancer, Hair loss, heat intolerance or cold intolerance Skin Skin: No rash or changing moles Breast Breast: No left breast lump, right breast lump, nipple discharge, breast pain, abnormal mammogram, abnormal US or breast enlargement Musc Musculoskeletal: Yes back problems; No arthritis, rheumatoid arthritis, gout or joint pain Cardio Cardiovascular: No murmur, pacemaker, heart disease, atrial fibrillation, high blood pressure, heart attack, heart stent, palpitations, shortness of breat with exertion or chest pain Psych Psychiatric: No depression, anxiety or hearing voices Resp Respiratory: No shortness of breath, No sleep apnea, No cough, No COPD, No asthma, No emphysema and No wheezing Gastro Gastrointestinal: No abdominal pain, No nausea or vomiting, No diarrhea, No constipation, Yes blood in stool, No acid reflux, Yes hemorrhoids, No ulcers, No gallbladder problem and No black,tarry stools Bunny Hematologic: No blood thinners, No blood disorders, No bleeding, No anemia and No blood clots Neuro Neurologic: No system reviewed and no additional complaints, except as documented, No as per HPI, No abnormal gait, No abnormal hearing, No abnormal movements, No abnormal speech, No behavioral changes, No burning sensations, No confusion, No convulsions, No disequilibrium, No dizziness, No localized weakness, No frequent falls, No headache(s), No lack of coordination, No loss of vision, No memory loss, No numbness, No other visual disturbances, No radicular pain, No restless legs, No sensory deficit, No syncope, No tingling, No tremor(s), No weakness and No other Exam Const General: cooperative and no acute distress Orientation: alert, awake and oriented x3 Resp Effort & Inspection: normal respiratory effort Auscultation: clear to auscultation bilaterally, no rales, no rhonchi and no wheezes Cardio Rate: regular rate Rhythm: regular rhythm Heart Sounds: S1 normal and S2 normal GI Inspection: normal to inspection, non-distended and no scars Palpation: soft, no hernias and nontender Assessment and Plan Assessment and Plan (1) Bright red blood per rectum: Status: Acute Comment: Patient presents with approximately 2-week history of this complaint. He states that it has temporarily stopped as his bowel movement this morning showed no blood. However he does have clear evidence of anemia per labs and appears to be somewhat symptomatic from this anemia given new reports of weakness/fatigue. His last endoscopy was approximately 20 years ago and polyps were noted. There does not appear to be any family history of colon cancer. Patient denies history of hemorrhoids and this was not featured with patient's recent anoscopy exam. Therefore, I will schedule him for the next available colonoscopy slot. Lastly, Mr. Gale reports that there may have been an incidental finding of a liver lesion on imaging obtained last month after his rib fractures. I am not able to corroborate this when I go back to his original chest x-rays and subsequent CT imaging. The only finding noted on CT imaging was that of morphologic changes consistent with development of cirrhosis. Plan - Dr. Brandan Sauceda MD: Plan will be to complete colonoscopy on , March 23, 2021 under local [facility]. Pre-procedure prep discussed and paper instructions provided. Patient is also made aware that he will need to have a courtesy car driver with him the day of the procedure. I have examined the patient the following changes are noted: Patient was able to complete his bowel prep yesterday. He states that his output has now become clear. Somewhat perplexed, he reports that he had no further bleeding with the prep. He has several questions related to his recent imaging but denies any further questions regarding colonoscopy. Therefore we will proceed as planned.
--- NOTE | 2021-03-23 07:30 | COLBX_PTH ---
PATIENT: STARLA GALE LOC: EN U#:[id number] AGE/SX: 80/M ROOM: RE03/23/[address]: Dr. Brandan Sauceda MD : 1940 BED: DIS: 03/23/2021 SPEC #: [id number] RECD: 03/23/21 08:40 STATUS: KENNY PATEL #: [id number] SOLA: 03/23/21 07:[address]: Brandan Sauceda DEPT: SURGICAL PATHOLOGY RECD BY: Osbaldo Mckeon ENTERED: 03/23/21 10:09 SP TYPE: COLON BX OTHR DR: Adam Lynn MD Tissues: Transverse colon Procedures: Surgery Specimen Level IV HEADER OPERATION: Colonoscopy (MAC) PRE-OP DIAGNOSIS: Bright red blood per rectum TISSUE SUBMITTED: Distal transverse polyp MICROSCOPIC DIAGNOSIS Distal transverse polyp, biopsy: Cauterized fragments of colonic mucosa with focal hyperplastic changes. See comment. FRANTZ:brittni 03/24/2021 COMMENT Numerous blood clots are also noted in the specimen. Correlation with clinical, endoscopic findings and appropriate follow up are necessary. MICROSCOPIC DESCRIPTION Slides are reviewed. GROSS DESCRIPTION Received in fixative is one container labeled with the patient's name and designated polyp distal transverse. The specimen consists of multiple fragments of hemorrhagic soft tissue that in aggregate measure 1.5 x 0.5 x 0.1 cm. The specimen is totally submitted in one cassette. / SJ:brittni 03/23/2021 TC:5 CPT: 32308
[2021-03-23 08:15] VITALS: BP 135/71; BP 136/69; PULSE 63; RESP 16; TEMP 36; O2SAT 95
[2021-03-23 08:20] VITALS: BP 136/69; BP 137/71; PULSE 61; RESP 16; O2SAT 94
--- NOTE | 2021-03-23 08:22 | OP.CCLET_ITS ---
03/23/2021 Adam Lynn Md Re : Colonoscopy procedure for Jerry Medina Dear Leah This procedure was performed on March. My impressions and recommendations are as follows: Impressions : - Multiple non-bleeding colonic angiodysplastic lesions. - Diverticulosis in the sigmoid colon and in the cecum. - One 1 mm polyp in the distal transverse colon, removed with a hot snare. Resected and retrieved. - External internal hemorrhoids. Recommendations : - Discharge patient to home (via wheelchair). - High fiber diet today. - Continue present medications. - Await pathology results. - No recommendation at this time regarding repeat colonoscopy due to age. My findings are described in the full procedure note, which is enclosed. If I can be of further assistance, please feel free to contact me at Doctor phone number(s): , Work: . Sincerely, Brandan Sauceda MD 03/23/2021 8:21:44 AM This report has been signed electronically.
--- NOTE | 2021-03-23 08:22 | OP.COLON_ITS ---
Patient Name: Jerry Medina Procedure Date: 03/23/2021 7:17 AM Date of : 1940 Age: 80 Procedure: Colonoscopy Indications: Hematochezia Providers: Brandan Sauceda MD Medicines: See the Anesthesia note for documentation of the administered medications Patient Profile: Refer to note in patient chart for documentation of history and physical. Last Colonoscopy: more than 10 years ago. Complications: No immediate complications. Procedure: Pre-Anesthesia Assessment: - Prior to the procedure, a History and Physical was performed, and patient medications, allergies and sensitivities were reviewed. The patient's tolerance of previous anesthesia was reviewed. - The risks and benefits of the procedure and the sedation options and risks were discussed with the patient. All questions were answered and informed consent was obtained. - Sedation was administered by an anesthesia professional. The sedation level attained was moderate. After I obtained informed consent, the scope was passed under direct vision. Throughout the procedure, the patient's blood pressure, pulse, and oxygen saturations were monitored continuously. The colonoscope was introduced through the anus and advanced to the cecum, identified by appendiceal orifice and ileocecal valve. The colonoscopy was somewhat difficult due to the patient's discomfort during the procedure. Successful completion of the procedure was aided by increasing the dose of sedation medication. The patient tolerated the procedure fairly well. The appendiceal orifice and the rectum were photographed. Scope In: 7:32:26 AM Scope Withdrawal Time 0 hours 24 minutes 21 seconds Scope Out: 8:06:40 AM Total Procedure Duration Time 0 hours 34 minutes 14 seconds Findings: Multiple diffuse angiodysplastic lesions without bleeding were found in the transverse colon. A few small-mouthed diverticula were found in the sigmoid colon and cecum. A 1 mm polyp was found in the distal transverse colon. The polyp was semi-pedunculated. The polyp was removed with a hot snare. Resection and retrieval were complete. Estimated blood loss was minimal. External internal hemorrhoids were found during retroflexion. The hemorrhoids were moderate. Impression: - Multiple non-bleeding colonic angiodysplastic lesions. - Diverticulosis in the sigmoid colon and in the cecum. - One 1 mm polyp in the distal transverse colon, removed with a hot snare. Resected and retrieved. - External internal hemorrhoids. Recommendation: - Discharge patient to home (via wheelchair). - High fiber diet today. - Continue present medications. - Await pathology results. - No recommendation at this time regarding repeat colonoscopy due to age. Procedure Code(s): --- Professional --- 87677, Colonoscopy, flexible; with removal of tumor(s), polyp(s), or other lesion(s) by snare technique CPT copyright 2017 [employer]. All rights reserved. The codes documented in this report are preliminary and upon associate trainer review may be revised to meet current compliance requirements. Brandan Sauceda MD 03/23/2021 8:21:44 AM This report has been signed electronically. Number of Addenda: 0 Note Initiated On: 03/23/2021 7:17 AM
[2021-03-23 08:25] VITALS: BP 136/69; BP 143/70; PULSE 59; RESP 16; O2SAT 94
[2021-03-23 08:30] VITALS: BP 136/69; BP 145/72; PULSE 62; RESP 16; O2SAT 94
[2021-03-23 08:49] VITALS: BP 136/69
== END 2021-03-23 09:07 ==
LOC: EN 06:22 → AC 06:24
PROVIDERS: PCP Family Medicine; Referring Provider Family Medicine; Visit Provider Surgery
PROC: 0DJD8ZZ Inspection of Lower Intestinal Tract, Via Natural or Artificial Opening Endoscopic (ICD-10-PCS; CPT 45378; principal; 2021-03-23 07:25)
DX: K55.20 Angiodysplasia of colon without hemorrhage (principal); K63.5 Polyp of colon; K57.30 Diverticulosis of large intestine without perforation or abscess without bleeding; K64.8 Other hemorrhoids; K64.4 Residual hemorrhoidal skin tags; I10 Essential (primary) hypertension; N40.0 Benign prostatic hyperplasia without lower urinary tract symptoms; F32.9 Major depressive disorder, single episode, unspecified; E78.00 Pure hypercholesterolemia, unspecified; H35.30 Unspecified macular degeneration; Z86.16 Personal history of COVID-19; Z79.82 Long term (current) use of aspirin; Z79.899 Other long term (current) drug therapy; F17.210 Nicotine dependence, cigarettes, uncomplicated
CPT/HCPCS: 45385; 88305; J7120; J2405

== ENCOUNTER → 2021-04-21 15:55 | Outpatient (CLI) | payer MEDICARE, OTHER, SELFPAY ==
[2021-04-21 17:46] LABS: International Normalized Ratio 1.3
[2021-04-21 17:47] LABS: Partial Thromboplast Time 35.4 Seconds (24.1-36.2)
[2021-04-21 17:55] LABS: ALB/GLOB Ratio 0.8 RATIO (0.9-2.4); AST(SGOT) 36 U/L (15-37); Alanine Aminotransfer ALT/SGPT 29 U/L (16-61); Albumin, Serum 3.3 g/dL (3.2-5.0); Alkaline Phosphatase 160 U/L (45-117); Anion Gap 8 (5-15); BUN 22 mg/dL (7-18); BUN/Creat Ratio 18.3 RATIO (10-20); Chloride 110 mmol/L (98-107); EST Glomerular Filtration Rate 62 mL/min (>60); Est Glom Filt Rate - Afr Amer 75 mL/min (>60); Ferritin 50 ng/mL (26-388); Globulin 4.3 g/dL (2.2-4.2); Glucose 109 mg/dL (74-106); Protein, Total 7.6 g/dL (6.4-8.2); Sodium Level 141 mmol/L (136-145)
[2021-04-24 09:34] LABS: Hepatitis B Surface Antigen Non-Reactive (Nonreactive); Hepatitis C Antibody Non-Reactive (Nonreactive)
[2021-04-24 13:11] LABS: AFP, Tumor Marker 4.2 ng/mL (0.0-8.3); ANTINUCLEAR ANTIBODIES DIRECT Negative (Negative); Anti-Mitochondrial AB <20.0 Units (0.0-20.0); Anti-Smooth Muscle ABS 8 Units (0-19)
== END ==
PROVIDERS: PCP Family Medicine; Referring Provider Internal Medicine Gastroenterology; Visit Provider Internal Medicine Gastroenterology
DX: K74.60 Unspecified cirrhosis of liver (principal)
CPT/HCPCS: 36415; 80053; 82105; 82728; 83516; 85610; 85730; 86038; 86803; 87340

== ENCOUNTER 2022-09-16 13:46 | Emergency (ER) | payer MEDICARE, OTHER, SELFPAY ==
[2022-09-16 13:46] VITALS: BP 144/59; PULSE 58; RESP 17; TEMP 36.1; O2SAT 97; BMI 28.0
--- NOTE | 2022-09-16 14:01 | CT_ITS ---
EXAM: CT CERVICAL SPINE WITHOUT INTRAVENOUS CONTRAST CLINICAL INDICATION: Trauma injury. TECHNIQUE: Helically acquired images were obtained of the cervical spine without intravenous contrast. 2D reformatted images were reviewed. This CT exam was performed using one or more of the following dose reduction techniques: automated exposure control, adjustment of the mA and/or kV according to patient size, and/or use of iterative reconstruction technique. This report was created using [employer] report generation technology. RADIATION DOSE: CTDIvol = 24.59 mGy, DLP = 434.45 mGy-cm COMPARISON: None. FINDINGS: VERTEBRAE: Mild degenerative anterolisthesis of C2 on C3 and C7 on T1. Moderate right C2-C3 facet arthropathy. Mild asymmetric C7-T1 degenerative facet arthropathy. DISCS/SPINAL CANAL/NEURAL FORAMINA: Pronounced disc space height narrowing with endplate sclerosis at C4-C5, C5-C6 and C6-C7 interspace levels. Diverticulosis of the right C3-C4 facet joint. Ankylosis of the hypoplastic left C2-C3 facet joint. Moderate stenosis of the C5-C6 intervertebral neural foramina. Mild C3-C4 disc space height narrowing. SOFT TISSUES: Soft tissue thickening with calcifications behind the odontoid process secondary to CPPD arthropathy. No prevertebral soft tissue swelling. LYMPH NODES: Unremarkable. No cervical adenopathy. LUNG APICES: Unremarkable as visualized. Clear. CT/Spine Cervical without Contras IMPRESSION: 1. No CT evidence of acute fractures of the cervical spine, craniocervical junction and cervicothoracic junction. 2. Mild degenerative anterolisthesis of C2 on C3 and C7 on T1. Electronically Signed: Damaso Hoover MD at 14:38 EST ,
--- NOTE | 2022-09-16 14:01 | CT_ITS ---
EXAM: CT MAXILLOFACIAL WITHOUT INTRAVENOUS CONTRAST CLINICAL INDICATION: Traumatic head injury. TECHNIQUE: Helically acquired images were obtained of the face without intravenous contrast. This CT exam was performed using one or more of the following dose reduction techniques: automated exposure control, adjustment of the mA and/or kV according to patient size, and/or use of iterative reconstruction technique. This report was created using [employer] report generation technology. RADIATION DOSE: CTDIvol = 29.38 mGy, DLP = 598.88 mGy-cm COMPARISON: None. FINDINGS: BONES/JOINTS: Small acute fracture involving the nasal septum. Right nasal septal hematoma. Suspicious minimal fracture of the right middle turbinate surrounded by presumably blood in the right basal wall.. Small air-fluid level in the right maxillary sinus but no visible acute fracture surrounding the right maxillary antral guerra. Old fractures in the nasal bones in the frontal process of the left maxilla without overlying soft tissue swelling. No discrete lytic or blastic abnormalities. SOFT TISSUES: See above. ORBITS: Unremarkable. Both globes are unremarkable. Extraocular muscles are normal. Retrobulbar fat appears unremarkable. SINUSES: Unremarkable as visualized. Clear. MASTOID AIR CELLS: Unremarkable as visualized. Clear. DENTAL: No acute findings. No periodontal osseous erosion. CT/Sinus/Facial Bone IMPRESSION: Acute fracture of the nasal septum with small right basal septal hematoma. Minimal acute fracture of the right middle turbinate. Old fractures of the nasal bones and the frontal process of the left maxilla. Electronically Signed: Damaso Hoover MD at 14:35 EST ,
--- NOTE | 2022-09-16 14:04 | CT_ITS ---
EXAM: CT HEAD WITHOUT INTRAVENOUS CONTRAST CLINICAL INDICATION: Traumatic injury. TECHNIQUE: Multiple axial images were obtained of the head without intravenous contrast. This CT exam was performed using one or more of the following dose reduction techniques: automated exposure control, adjustment of the mA and/or kV according to patient size, and/or use of iterative reconstruction technique. This report was created using [employer] report generation technology. RADIATION DOSE: CTDIvol = 44.99 mGy, DLP = 846.73 mGy-cm COMPARISON: None. FINDINGS: BRAIN AND EXTRA-AXIAL SPACES: Hypodensities in the subcortical white matter of both cerebral hemispheres and the forceps major on chronic white matter ischemic changes. No intra- or extra-axial hemorrhage. No intracranial mass or mass effect. Posterior fossa structures are unremarkable. Ventricles are appropriate for age. No hydrocephalus. Basal cisterns are patent. Normal cavum septum pellucidum and cavum vergae. BONES/JOINTS: Fracture in the frontal process of the left maxilla. No discrete lytic or blastic abnormalities. VASCULATURE: Calcified plaques in the intradural segments of both vertebral arteries. Tubular calcifications along the bilateral internal carotid artery siphons. SINUSES: Small air-fluid level in the right maxillary sinus. MASTOID AIR CELLS: Unremarkable. Clear. ORBITS: Visualized globes, extraocular muscles, optic nerves and retrobulbar fat appear unremarkable. CT/Brain/Head without Contrast IMPRESSION: 1. No acute findings in the head/brain. 2. Chronic white matter ischemic changes in both cerebral hemispheres. 3. Old fracture in the frontal process of the left maxilla rather than recent fracture since there is no overlying soft tissue swelling. 4. Small air-fluid level in the right maxillary sinus. Electronically Signed: Damaso Hoover MD at 14:30 EST ,
[2022-09-16] MEDS: Diphth,Pertuss(Acell),Tet Vac 0.5 ML Vial IM (14:24)
--- NOTE | 2022-09-16 14:30 | EX.ED.GENINJ ---
HPI <AUDELIA Molina - Last Filed: 09/16/22 16:05> History of Present Illness Chief Complaint: Fall Narrative Narrative: Patient is a 82-year-old male with history of hypertension, BPH, hyperlipidemia patient is currently not any blood thinners. Patient was walking on a gravel driveway when he tripped over a trailer hitch, falling striking his face on the gravel. Patient has multiple lacerations to his nose, epistaxis. Patient denies any LOC. Patient denies any other specific injury. Has vaccination unknown. Patient members the entire event. PFSH <AUDELIA Molina - Last Filed: 09/16/22 16:05> FORMERLY [facility], 1928–1983 Medical History (Updated 09/16/22 @ 21:[address] 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 Bleeding external hemorrhoids BPH (benign prostatic hyperplasia) Bruising Depression Former smoker High cholesterol History of COVID-19 History of diverticulitis History of stress test Hx of fracture of rib Hypertension Macular degeneration Pilonidal cyst Prostate disease Restless legs Wears dentures Home Medications amlodipine 5 mg tablet 5 mg PO DAILY HTN 03/09/21 [History Last Taken 03/23/21] citalopram 20 mg tablet 20 mg PO DAILY depression 03/09/21 [History Last Taken 03/09/21] finasteride 5 mg tablet 5 mg PO DAILY BPH 03/09/21 [History Last Taken 03/09/21] ropinirole 0.25 mg tablet 0.25 mg PO PRN PRN restless legs 03/09/21 [History Last Taken Unknown] rosuvastatin 10 mg tablet 10 mg PO QODAY cholesterol 03/09/21 [History Last Taken 03/08/21] tamsulosin 0.4 mg capsule 0.4 mg PO BID BPH 03/09/21 [History Last Taken 03/09/21] valsartan 80 mg tablet 80 mg PO DAILY HTN 03/09/21 [History Last Taken 03/09/21] oxycodone-acetaminophen 5 mg-325 mg tablet (Percocet) 1 tab PO Q8H PRN pain 3 days #10 tabs 09/16/22 [Rx Last Taken Unknown] Allergy/AdvReac Type Severity Reaction Status Date / Time amoxicillin [From Augmentin] Allergy Other Verified 09/16/22 13:50 clavulanic acid Allergy Other Verified 09/16/22 13:50 [From Augmentin] lisinopril AdvReac Other Verified 09/16/22 13:50 Family History Mother Cancer Sister Cancer Other Heart disease Surgical History History of cataract surgery History of excision of pilonidal cyst History of herniorrhaphy Social History household members: none Smoking Status: Former smoker alcohol intake: current alcohol intake frequency: other substance use type: does not use ROS <AUDELIA Molina - Last Filed: 09/16/22 16:05> ROS ED ROS Narrative Constitutional: Negative for fever, chills, weight loss, weakness Eyes: Negative for vision loss, vision change, double vision ENT: Negative for any sore throat, ear pain, congestion. Positive for epistaxis, nasal pain, nasal laceration Cardiovascular: Negative for any chest pain, tightness, palpitations Respiratory: Negative for any cough, sputum production, hemoptysis, dyspnea, dyspnea on exertion, orthopnea Gastrointestinal: Negative for any abdominal pain, nausea, vomiting, diarrhea, constipation, blood in stool, blood in vomit : Negative for any urinary frequency, dysuria, retention, blood in urine Muscle skeletal: Negative for any muscle joint pain, stiffness, myalgias, arthralgias, neck pain, back pain Neurological: Negative for any headache, syncope, numbness or tingling, dizziness Skin: Negative for any rashes, lumps, itching, abrasions, lacerations Psychiatric: Negative for any depression, anxiety, stress, suicidal ideation, homicidal ideation Hematologic: Negative for any easy bruising, excessive bruising, easy bleeding Allergies: Negative for any eczema, hives, rash EXAM <AUDELIA Molina - Last Filed: 09/16/22 16:05> Physical Exam Narrative Exam Narrative: Vital signs reviewed. HEET: Head normocephalic atraumatic, TMs clear bilaterally. Posterior pharynx is clear, moist mucous membranes. Nares clear bilaterally. Pupils are equal, reactive, no estes sign. Patient does have some epistaxis, there is slight bleeding on both nares however there is no hemorrhage. There is no evidence to suspect any septal hematoma. Patient has no trismus. Patient's jaws in place. Patient has no dental pain. Patient does have a 0.5 laceration to the bridge of the nose, as well as a avulsion to the tip of the nose. Neck: Supple with no lymphadenopathy or tenderness. No signs of meningismus, negative jolt sign. Cardiac: Regular rate and rhythm no murmurs gallops or rubs, equal peripheral pulses bilaterally. Respiratory: Lungs clear to auscultation bilaterally. No chest tenderness. Abdomen: Soft, nontender, nondistended. No abdominal bruit or pulsatile masses. No hepatosplenomegaly Extremities: No peripheral edema, no signs of gross trauma or deformity. Active full range of motion of all extremities. Neuro: Cranial nerves II through XII intact, no focal neurological deficits. Skin: Clean dry and intact with no rash, purpura, petechiae, vesicles or pustules. Backs/flank: No CVA tenderness, no midline spinal tenderness, no deformity. Psych: Normal mood and affect. No SI, HI or acute psychosis. Const Vital Signs: 09/16/22 13:46 09/16/22 13:54 Temperature 97.0 F L Temperature Source Temporal Pulse Rate 58 L Respiratory Rate 17 Respiratory Effort Normal Respiratory Depth Normal Respiratory Pattern Normal Blood Pressure 144/59 H Blood Pressure Mean 87 Pulse Ox 97 Oxygen Delivery Method Room Air Positive well nourished and well developed General Appearance ED: well developed <Dr. Sean Ayoub DO - Last Filed: 09/16/22 21:51> Physical Exam Const Vital Signs: 09/16/22 13:46 09/16/22 13:54 Temperature 97.0 F L Temperature Source Temporal Pulse Rate 58 L Respiratory Rate 17 Respiratory Effort Normal Respiratory Depth Normal Respiratory Pattern Normal Blood Pressure 144/59 H Blood Pressure Mean 87 Pulse Ox 97 Oxygen Delivery Method Room Air MDM <AUDELIA Molina - Last Filed: 09/16/22 16:05> MDM Radiography Diagnostic Testing: Clinical Impression(s) from Imaging Studies Cervical Spine CT 09/16/22 14:01 IMPRESSION: 1. No CT evidence of acute fractures of the cervical spine, craniocervical junction and cervicothoracic junction. 2. Mild degenerative anterolisthesis of C2 on C3 and C7 on T1. Electronically Signed: Damaso Hoover MD at 14:38 EST , Facial/Sinus 09/16/22 14:01 IMPRESSION: Acute fracture of the nasal septum with small right basal septal hematoma. Minimal acute fracture of the right middle turbinate. Old fractures of the nasal bones and the frontal process of the left maxilla. Electronically Signed: Damaso Hoover MD at 14:35 EST , Brain CT 09/16/22 14:04 IMPRESSION: 1. No acute findings in the head/brain. 2. Chronic white matter ischemic changes in both cerebral hemispheres. 3. Old fracture in the frontal process of the left maxilla rather than recent fracture since there is no overlying soft tissue swelling. 4. Small air-fluid level in the right maxillary sinus. Electronically Signed: Damaso Hoover MD at 14:30 EST , Treatment and Re-Evaluation Narrative: All radiologic examinations were read, reviewed by the emergency department attending. From these reads, a plan of care will be put in place. Patient appears well, patient appears nontoxic, vital signs are stable. Patient presents to the emergency department after mechanical fall striking his face on the gravel. Patient received a CT scan of the brain, this showed no acute findings of the head or brain. CT scan of the cervical spine showed degenerative changes however no acute fractures of the cervical spine. Patient CT scan of the facial and sinus bones show an acute fracture of the nasal septum with small right basal septal hematoma. Minimal acute fracture of the right middle turbinate. Old fracture of the nasal bones and frontal process of the left maxilla. Patient continues to have slight oozing to bilateral nares. Patient had his wounds cleansed, the tip of the nose is an avulsion and cannot be sutured. Patient will have glue to the bridge of the nose. Secondary to the patient's concern for septal hematoma, I did reach out to ENT specialty at [facility] for close follow-up appointment. However patient were also like to follow-up with his established ENT here at [place]. However there is no ENT on-call at this time in this area. I spoke with ENT resident at [facility], the resident was able to look at the images, and would like the patient to follow-up tomorrow as soon as possible. Patient will be will be discharged home. Patient, patient's granddaughter as well as the patient's were given instructions. The patient will also call the ENT tomorrow in [place] and if he can get in tomorrow he can follow-up there. However secondary to the short notice, no ENT on-call in [place], patient will follow-up at [facility]. Patient was given all information. The ENT resident was given all the information regarding the patient. Patient was offered analgesia however refused. Patient will continue to ice. He is instructed return for any worsening symptoms. Patient stable for discharge. <Dr. Sean Ayoub, DO - Last Filed: 09/16/22 21:51> MDM MDM Narrative Medical decision making narrative: Interventions / MDM: Differential diagnosis: Intracranial hemorrhage, facial fracture, facial contusions, cervical neck fracture.. Diagnosis considered but do not suspect: N/A My EKG interpretation: N/A Imaging independently reviewed and interpreted by myself: CT head, face, cervical spine. No intracranial bleeding, nasal bone fracture distally, septal bowing to the left, septal hematoma. External documents reviewed: N/A Test considered but not ordered:N/A ED course: Attending note: Patient seen and evaluated with energy conservation representative. I perform my own [id number] evaluation. I agree with the plan of work-up. Mechanical fall facial injury. No anticoagulants. Tetanus unknown. Nasal bleeding bilaterally. Exam GCS 15, nasal swelling there is a 1 cm laceration nasal bridge at the fold. Skin avulsion at the tip of the nose with no active bleeding. There is clots in bilateral naris right greater than the left. No neck back chest pain or discomfort. Full range of motion x4 extremities. Trauma scans negative for intracranial process, nasal bone fracture with septal hematoma anterior right superiorly. Bleeding was controlled. Tetanus updated. No ENT currently available. Unable to see the septal hematoma as its more superior. Discussed with ENT at [facility], they will see the patient tomorrow. Family updated and agrees with plan of care. Laceration was Dermabond by energy conservation representative. Re-evaluation: stable Disposition discussed with patient/family/significant other: Patient and family Case discussed with consulting clinician: ENT service at [facility] Radiography Diagnostic Testing: Clinical Impression(s) from Imaging Studies Cervical Spine CT 09/16/22 14:01 IMPRESSION: 1. No CT evidence of acute fractures of the cervical spine, craniocervical junction and cervicothoracic junction. 2. Mild degenerative anterolisthesis of C2 on C3 and C7 on T1. Electronically Signed: Damaso Hoover MD at 14:38 EST , Facial/Sinus 09/16/22 14:01 IMPRESSION: Acute fracture of the nasal septum with small right basal septal hematoma. Minimal acute fracture of the right middle turbinate. Old fractures of the nasal bones and the frontal process of the left maxilla. Electronically Signed: Damaso Hoover MD at 14:35 EST , Brain CT 09/16/22 14:04 IMPRESSION: 1. No acute findings in the head/brain. 2. Chronic white matter ischemic changes in both cerebral hemispheres. 3. Old fracture in the frontal process of the left maxilla rather than recent fracture since there is no overlying soft tissue swelling. 4. Small air-fluid level in the right maxillary sinus. Electronically Signed: Damaso Hoover MD at 14:30 EST , Discharge Plan Triage Chief Complaint: Fall ED Midlevel Provider: Domo Glaser ED Provider: Sean Ayoub Dx/Rx/DC Orders Clinical Impression: Fall, Nasal bone fracture, Hematoma of nasal septum, Facial laceration, Abrasion of nose Instructions: ED Facial Fracture, ED Nose Fracture, with X-Ray, ED Hematoma Prescriptions: New oxycodone-acetaminophen [Percocet] 5-325 mg tablet 1 tab PO Q8H PRN (Reason: pain) 3 Days Qty: 10 0RF No Action valsartan 80 mg Tablet 80 mg PO DAILY amlodipine 5 mg Tablet 5 mg PO DAILY citalopram 20 mg Tablet 20 mg PO DAILY tamsulosin 0.4 mg Capsule 0.4 mg PO BID ropinirole 0.25 mg Tablet 0.25 mg PO PRN PRN (Reason: restless legs) finasteride 5 mg Tablet 5 mg PO DAILY rosuvastatin 10 mg Tablet 10 mg PO QODAY Primary Care Provider: Adam Lynn Referrals: Pepito Noonan MD [Med Staff - Active Staff] - Adam Lynn MD [Primary Care Provider] - Activity Restrictions/Additional Instructions: [address] [place] [address] Phone: [phone] This is the information for Dr. Hodges/Yanique. Call for appointment tomorrow with the resident clinic, they have all your information. It is vital that you get seen tomorrow. If you call your ENT in [place] , and he can get you in tomorrow, you may follow-up with him. But you need to see an ENT specialist tomorrow. Disposition Disposition: Home, Self Care Discharge Date/Time: 09/16/22 16:12
== END 2022-09-16 16:12 | disposition home or self-care (01) ==
PROVIDERS: Emergency Provider Emergency Medicine; PCP Family Medicine; Visit Provider Emergency Medicine
DX: S02.2XXA Fracture of nasal bones, initial encounter for closed fracture (principal); S01.81XA Laceration without foreign body of other part of head, initial encounter; E78.00 Pure hypercholesterolemia, unspecified; I10 Essential (primary) hypertension; N40.0 Benign prostatic hyperplasia without lower urinary tract symptoms; F32.A Depression, unspecified; Z87.891 Personal history of nicotine dependence; Z86.16 Personal history of COVID-19; Z79.899 Other long term (current) drug therapy; W01.0XXA Fall on same level from slipping, tripping and stumbling without subsequent striking against object, initial encounter
CPT/HCPCS: 70450; 70486; 72125; 90715; 99283

== ENCOUNTER → 2023-06-21 | Outpatient (CLI) | payer MEDICARE, OTHER, SELFPAY ==
[2023-06-21 17:56] LABS: Hemoglobin 12.9 g/dL (13.0-16.5); Mean Corp Hgb Conc 32.3 g/dL (32-36); Mean Corpuscular Hgb 32.4 pg (27.0-32.0); Mean Corpuscular Volume 100.5 fL (80-94); Mean Platelet Vol. 11.1 fl (6.2-12.0); POSITIVE COUNT YES; Platelet Count 67 K/mm3 (150-450); RBC Distribution Width CV 13.4 % (11.6-14.6); RBC Distribution Width SD 50.1 fl (35.1-43.9); Red Blood Count 3.98 M/mm3 (4.6-6.2); White Blood Count 4.9 K/mm3 (4.4-11.0)
[2023-06-21 18:00] LABS: International Normalized Ratio 1.3; Prothrombin Time (Protime)PT. 15.9 SECONDS (11.7-14.9)
[2023-06-21 18:01] LABS: Partial Thromboplast Time 36.3 Seconds (24.1-36.2)
[2023-06-21 18:18] LABS: ALB/GLOB Ratio 0.7 RATIO (0.9-2.4); AST(SGOT) 44 U/L (15-37); Alanine Aminotransfer ALT/SGPT 28 U/L (16-61); Albumin, Serum 2.9 g/dL (3.2-5.0); Alkaline Phosphatase 193 U/L (45-117); Anion Gap 5 (5-15); BUN 22 mg/dL (7-18); BUN/Creat Ratio 18.3 RATIO (10-20); Calcium,Total 8.5 mg/dL (8.5-10.1); Chloride 114 mmol/L (98-107); EST Glomerular Filtration Rate 61 mL/min (>60); Est Glom Filt Rate - Afr Amer 74 mL/min (>60); Globulin 4.3 g/dL (2.2-4.2); Glucose 97 mg/dL (74-106); Potassium 3.8 mmol/L (3.5-5.1); Protein, Total 7.2 g/dL (6.4-8.2); Sodium Level 143 mmol/L (136-145)
[2023-06-21 18:25] LABS: Scan Indicated on CBC? Y/N YES- FLAGS NOTED
[2023-06-23 09:07] LABS: Alpha Antitrypsin Serum 121 mg/dL (101-187)
[2023-06-23 14:21] LABS: AFP, Tumor Marker 15.6 ng/mL (0.0-6.4)
== END | disposition home or self-care (01) ==
LOC: MTLAB 14:34
PROVIDERS: PCP Family Medicine; Referring Provider Internal Medicine Gastroenterology; Visit Provider Internal Medicine Gastroenterology
DX: K74.60 Unspecified cirrhosis of liver (principal)
CPT/HCPCS: 36415; 80053; 82103; 82105; 85027; 85610; 85730

== ENCOUNTER → 2023-06-24 | Outpatient (CLI) | payer MEDICARE, OTHER, SELFPAY ==
[2023-07-01 21:07] LABS: Calprotectin, Stool 18 ug/g (0-120); Fats, Neutral Normal (.); Fats, Total Normal (.)
== END | disposition home or self-care (01) ==
LOC: LABSPEC 10:55
PROVIDERS: PCP Family Medicine; Referring Provider Internal Medicine Gastroenterology; Visit Provider Internal Medicine Gastroenterology
DX: R19.7 Diarrhea, unspecified (principal)
CPT/HCPCS: 82705; 83993

== ENCOUNTER → 2023-07-02 | Outpatient (CLI) | payer MEDICARE, OTHER, SELFPAY ==
--- NOTE | 2023-07-02 17:34 | CT_ITS ---
EXAM: CT ABDOMEN WITH INTRAVENOUS CONTRAST CLINICAL INDICATION: CIRRHOSIS TECHNIQUE: Helically acquired images were obtained of the abdomen with intravenous contrast. This CT exam was performed using one or more of the following dose reduction techniques: automated exposure control, adjustment of the mA and/or kV according to patient size, and/or use of iterative reconstruction technique. CONTRAST: Oral and amp; IV Readi-CAT and amp; 100mL Isovue-300 COMPARISON: No relevant prior studies available. FINDINGS: LOWER THORAX: Normal. Lung bases are clear. No cardiomegaly. No significant pericardial effusion. LIVER: Extensive nodularity of the liver surface consistent with cirrhosis. No space-occupying lesions are noted. GALLBLADDER AND BILE DUCTS: 2 cm calcified gallstone. PANCREAS: Normal. No focal cystic or solid mass. SPLEEN: Splenomegaly. The spleen measures 18.1 x 12.2 x 4.4 cm with a volume of 509.1 ml. ADRENALS: Normal. No nodules. KIDNEYS AND URETERS: Multiple bilateral renal cysts. Prominent cortical scarring of the left kidney. STOMACH AND BOWEL: Normal. No bowel distention. No focal inflammatory change. APPENDIX: Appendix is visualized and normal in appearance. INTRAPERITONEAL SPACE: Small volume ascites. No free air. BONES/JOINTS: No suspicious lytic or blastic abnormality. SOFT TISSUES: Normal. No discrete abdominal wall hernia. VASCULATURE: 2.8 cm ectasia of the infrarenal abdominal aorta. Portal vein is patent. Large varices noted within the left upper quadrant. Paraesophageal varices also noted. LYMPH NODES: No enlarged lymph nodes. CT/Abdomen WITH IV Contrast IMPRESSION: 1. Liver cirrhosis and portal hypertension. 2. Paraesophageal varices. 3. Cholelithiasis. Electronically Signed: Khurram Barraza MD at 9:06 EST ,
== END | disposition home or self-care (01) ==
LOC: CT 17:31
PROVIDERS: PCP Family Medicine; Referring Provider Internal Medicine Gastroenterology; Visit Provider Internal Medicine Gastroenterology
DX: K74.60 Unspecified cirrhosis of liver (principal); R18.8 Other ascites
CPT/HCPCS: 74160; Q9967

== ENCOUNTER 2023-08-01 16:51 | Inpatient (IN) | payer MEDICARE, OTHER, SELFPAY ==
[2023-08-01] VITALS (11 sets, daily range): BP systolic 79–108; BP diastolic 36–72; PULSE 57–115; RESP 16–23; TEMP 35.8–36; O2SAT 94–98; BMI 23.6; BMI 24.5
--- NOTE | 2023-08-01 17:37 | EX.ED.DYSGE1 ---
HPI History of Present Illness Chief Complaint: Weakness Informant: patient and family Onset/Context/Timing Onset: Days Context: Gradual Onset Timing: Continuous Current Severity: Moderate Maximum Severity: Moderate Narrative Narrative: 83-year-old male history of cirrhosis, esophageal varices, and AAA. Recently had water retention on his lower extremities was placed on a diuretic which caused him to lose 30 pounds in a little over a week. He presents with generalized weakness and low blood pressure. Typically his blood pressures over 100. He is also had a cough since around Jeana. Denies fever. Denies chest pain. Denies abdominal pain. No vomiting. Occasionally has loose stools. No melena. Prior similar symptoms: No Recent Illness/Hospitalization: No [facility] Medical History Anemia due to gastrointestinal blood loss Bleeding external hemorrhoids BPH (benign prostatic hyperplasia) Bruising Depression Former smoker High cholesterol History of COVID-19 History of diverticulitis History of stress test Hx of fracture of rib Hypertension Macular degeneration Pilonidal cyst Prostate disease Restless legs Wears dentures Home Medications amlodipine 5 mg tablet 5 mg PO DAILY HTN 03/09/21 [History Last Taken 03/23/21] finasteride 5 mg tablet 5 mg PO DAILY BPH 03/09/21 [History Last Taken 03/09/21] ropinirole 0.25 mg tablet 0.25 mg PO PRN PRN restless legs 03/09/21 [History Last Taken Unknown] rosuvastatin 10 mg tablet 10 mg PO QODAY cholesterol 03/09/21 [History Last Taken 03/08/21] tamsulosin 0.4 mg capsule 0.4 mg PO BID BPH 03/09/21 [History Last Taken 03/09/21] valsartan 80 mg tablet 80 mg PO DAILY HTN 03/09/21 [History Last Taken 03/09/21] benzonatate 100 mg capsule 100 mg PO TID 08/01/23 [History Last Taken Unknown] escitalopram oxalate 5 mg tablet 5 mg PO DAILY 08/01/23 [History Last Taken Unknown] furosemide 40 mg tablet 40 mg PO DAILY 08/01/23 [History Last Taken Unknown] nitroglycerin 0.4 mg sublingual tablet 0.4 mg sublingual Q5M 08/01/23 [History Last Taken Unknown] spironolactone 50 mg tablet 50 mg PO DAILY 08/01/23 [History Last Taken Unknown] Allergy/AdvReac Type Severity Reaction Status Date / Time amoxicillin [From Augmentin] Allergy Other Verified 08/01/23 16:54 clavulanic acid Allergy Other Verified 08/01/23 16:54 [From Augmentin] lisinopril AdvReac Other Verified 08/01/23 16:54 Family History Mother Cancer Sister Cancer Other Heart disease Surgical History History of cataract surgery History of excision of pilonidal cyst History of herniorrhaphy Social History household members: none Smoking Status: Former smoker alcohol intake: current alcohol intake frequency: other substance use type: does not use ROS ROS ED ROS Narrative Generalized weakness. Loose stools. Review of Systems ROS Unobtainable: Denies due to encephalopathy Constitutional Constitutional ED: Denies chills or fever(s) Eyes Eyes: Denies blurry vision ENT ENT ED: Denies ear pain Cardiovascular Cardiovascular: Denies chest pain Respiratory/Chest Respiratory/Chest: Reports cough; Denies dyspnea Gastrointestinal Gastrointestinal: Reports diarrhea; Denies abdominal pain, constipation, melena, nausea or vomiting Genitourinary Genitourinary ED: Denies dysuria or hematuria Musculoskeletal Musculoskeletal: Denies arthralgias Integumentary Denies abscess Neurologic Neurologic: Denies headache(s) Psychiatric Psychiatric: Denies anxiety Endocrine Endocrinology: Denies cold intolerance Hematologic/Lymphatic Hematologic/Lymphatic: Reports none Allergic/Immunologic Allergic/Immunologic ED: Denies mouth swelling, tongue swelling or urticaria EXAM Physical Exam Narrative Exam Narrative: 83-year-old male he is hypotensive 83/36. I am in the room and is 90/50. He does not look septic or toxic. He may be dehydrated due to recent diuretic use. H EENT exam mild dry mucous membranes. Pupils are reactive light. Neck nontender. Lungs clear to auscultation bilaterally. Heart regular rhythm rate about 70 no murmur. Chest wall and ribs nontender. Abdomen soft nontender. Moving all 4 extremities. Nontender currently no edema. Neurologically is awake and alert. Answering questions following commands. He is tolerating his hypotension quite well. Const Vital Signs: 08/01/23 16:52 08/01/23 17:13 08/01/23 17:15 Temperature 96.8 F L Temperature Source Temporal Pulse Rate 75 59 L Respiratory Rate 16 17 Respiratory Effort Short of Breath Respiratory Pattern Tachypnea Blood Pressure 83/36 L 90/51 L Blood Pressure Mean 51 64 Pulse Ox 98 97 Oxygen Delivery Method Room Air Room Air 08/01/23 17:44 08/01/23 18:49 Temperature Temperature Source Pulse Rate 67 Respiratory Rate 20 H Respiratory Effort Respiratory Pattern Blood Pressure 100/72 Blood Pressure Mean 81 Pulse Ox 98 Oxygen Delivery Method Room Air Room Air Positive well nourished and well developed; Negative for obese, cachectic, contractures or unkempt General Appearance ED: well developed; Negative for unkempt, cachectic, contractures, cyanotic, diaphoretic, NAD or pallor Nutritional Appearance: Negative for cachectic or obese HEENT Reports dry mucous membranes Negative for trauma or tenderness Mouth ED: Yes dry mucous membranes Mouth: dry mucous membranes Eyes PERRL and EOMs intact bilaterally General Eye ED: Negative for pale conjunctiva, scleral icterus or other Neck no lymphadenopathy, supple and no JVD General: Negative for tenderness Lymph Lymphatic: Negative for other Chest Wall inspection of chest normal and palpation of chest normal Chest: Negative for other Resp normal respiratory effort and clear to auscultation bilaterally Effort and Inspection: Negative for retractions Auscultation: Negative for rales, rhonchi or wheezes Cardio regular rate, regular rhythm, S1 normal heart sound, S2 normal heart sound and no murmurs Rate: Negative for bradycardia or tachycardic GI normal to inspection, nondistended, normoactive bowel sounds, non-tender, non-distended and no masses Inspection: Negative for abdominal distention Auscultation: normoactive bowel sounds Palpation: soft; Negative for tender or guarding Bladder / Kidney Exam: No other Back/Spine no CVA tenderness General Back: Negative for CVA tenderness Cervical Spine: Negative for cervical spine tenderness Thoracic Spine / Upper Back: Negative for thoracic spinal tenderness Lumbar Spine / Lower Back: Negative for lumbar spinal tenderness Extremity normal to inspection General Extremety ED: Negative for edema or tenderness General Extremity: Negative for edema Neuro oriented x3 and CN's II-XII intact bilaterally Sensorium / Orientation: alert; Negative for orientation impaired, lethargic or stuporous Motor Exam: strength 5/5 throughout Psych mental status grossly normal Appearance: Negative for unkempt Attitude: No agitated Mood & Affect: Negative for depressed, anxious or tearful Skin no rashes or lesions noted and no wounds General Skin Exam: Negative for jaundice or pallor Lesions: No lesion noted Rashes: No rashes noted Trauma: Negative for abrasion Wounds: Negative for wounds noted MDM MDM MDM Narrative Medical decision making narrative: 83-year-old male with history of cirrhosis recently on diuretic due to water retention in his legs. Presents hypotensive. I think he is from dehydration. Possibly GI bleed versus sepsis. Undergo a septic workup with a type and screen. A liter normal saline. Repeat exam at 7:20 PM patient is responding to IV fluids. Current blood pressure is 100/72. He is awake and alert. I discussed all test results with he and his family. He will be given a second liter normal saline. Started on ED hyperkalemia protocol including aerosols, calcium gluconate IV, insulin and dextrose and the hospitalist requested Kayexalate. He will be admitted to the ICU. History & Record Review Discussion w/independent historian: Patient Additional record(s) reviewed:: Prior inpatient record, Prior outpatient record, Prior ED visit and Prior labs Lab Data Attestation: I reviewed the patient's lab results. Lab results narrative: CBC shows a white count of 10. H&H 14 and 43. Platelet count 119. PT/INR of 16 and 1. PTT of 33. Electrolytes showed a elevated potassium of 7.3. Gap of 8. BUN of 120 creatinine of 3.74. Glucose 90. Lactic acid normal at 1.5. Liver enzymes show an elevated alk phos of 233. Total bilirubin 1.2. Urinalysis normal. Chest x-ray normal. Labs: Laboratory Results - last 24 hr 08/01/23 08/01/23 08/01/23 17:32 17:45 18:30 WBC 10.2 RBC 4.39 L Hgb 14.5 Hct 43.9 MCV 100.0 H MCH 33.0 H MCHC 33.0 RDW Std Deviation 50.8 H RDW Coeff of Randi 13.9 Plt Count 119 L MPV 10.3 Immature Gran % (Auto) 0.600 Neut % (Auto) 75.1 H Lymph % (Auto) 14.9 L Mora % (Auto) 7.9 Eos % (Auto) 1.0 Baso % (Auto) 0.5 Absolute Neuts (auto) 7.7 Absolute Lymphs (auto) 1.52 Nucleated RBC % 0 PT 16.5 H INR 1.3 APTT 33.4 Sodium 138 Potassium 7.3 H* Chloride 116 H Carbon Dioxide 14.0 L Anion Gap 8 BUN 120 H* Creatinine 3.74 H Estim Creat Clear Calc 14.22 Est GFR (MDRD) Af Amer 20 L Est GFR (MDRD) Non-Af 17 L BUN/Creatinine Ratio 32.1 H Glucose 90 Lactic Acid 1.5 Calcium 10.6 H Total Bilirubin 1.20 H AST 42 H ALT 49 Alkaline Phosphatase 233 H Troponin I High Sens 22 Total Protein 8.4 H Albumin 3.2 Globulin 5.2 H Albumin/Globulin Ratio 0.6 L Urine Color Yellow Urine Clarity Clear Urine pH 5.0 Ur Specific [place] 1.010 Urine Protein Negative Urine Glucose (UA) Normal Urine Ketones Negative Urine Occult Blood Negative Urine Nitrite Negative Urine Bilirubin Negative Urine Urobilinogen Normal Ur Leukocyte Esterase Negative Urine RBC 0 SEEN Urine WBC 0 SEEN Ur Squamous Epith Cells 0-5 SEEN Urine Bacteria 0 SEEN Urine Mucus 0 SEEN Blood Type A POSITIVE Antibody Screen NEGATIVE Radiography Chest X-Ray - ED: 1 View, Read by ED Physician, Read by Radiologist, Lungs, Mediastinum, Bony Structures, No Acute Disease and Chronic Changes Diagnostic Testing: Clinical Impression(s) from Imaging Studies Chest X-Ray 08/01/23 17:55 IMPRESSION: No acute cardiopulmonary disease. Electronically Signed: Rogelio Awad MD at 18:08 EST , Chest x-ray portable single view shows old healed right rib fractures. No acute abnormality. Normal cardiac silhouette. Normal lung manley. Interpreted by myself and the radiologist. Rhythm Strip Rhythm Strip: Sinus Rhythm Rate: 52 Ectopy: None EKG Initial EKG: Attestation: I personally reviewed and interpreted this EKG as follows: Interpretation: Sinus Rhythm and Sinus Bradycardia Comments: Sinus bradycardia rate of 52. First-degree AV block WI interval 224. No acute signs of CT or ischemia. Critical Care Time Critical Care Time: Yes Critical care time (excluding procedures): 30-74 minutes, Including time spent:, Discussing w/Patient &/or Family/Port Patrol Officer, Discussing w/Consultants, Arranging Admission or Transfer, Performing Direct Patient Care at Bedside and - (40 min) Discharge Plan Triage Chief Complaint: Weakness ED Provider: Kendall Albarran Dx/Rx/DC Orders Clinical Impression: Acute hypotension, Acute dehydration, Acute kidney failure, History of cirrhosis, Acute hyperkalemia Prescriptions: No Action valsartan 80 mg Tablet 80 mg PO DAILY amlodipine 5 mg Tablet 5 mg PO DAILY tamsulosin 0.4 mg Capsule 0.4 mg PO BID ropinirole 0.25 mg Tablet 0.25 mg PO PRN PRN (Reason: restless legs) finasteride 5 mg Tablet 5 mg PO DAILY rosuvastatin 10 mg Tablet 10 mg PO QODAY furosemide 40 mg tablet 40 mg PO DAILY spironolactone 50 mg tablet 50 mg PO DAILY Patient Comments: TAKE 2 TABLETS BY MOUTH EVERY DAY escitalopram oxalate 5 mg tablet 5 mg PO DAILY Patient Comments: TAKE 1 TABLET BY MOUTH EVERY DAY benzonatate 100 mg capsule 100 mg PO TID nitroglycerin 0.4 mg tablet, sublingual 0.4 mg sublingual Q5M Rx Instructions: do not exceed 3 doses per episode Primary Care Provider: Adam Lynn Referrals: Adam Lynn MD [Primary Care Provider] - Disposition Disposition: [facility]
--- NOTE | 2023-08-01 17:43 | NURSING ---
NO OLD EKGS
[2023-08-01] MEDS: 0.9% Normal Saline (1000mL) 1,000 ML 999 ML IV ×3 (17:44→23:43)
[2023-08-01 17:51] LABS: Absolute Lymphocyte Count 1.52 X10^3/uL (0.83-4.51); Absolute Neutrophil Count 7.7 X10^3/uL (2.0-7.7); Basophil# 0.05 X10^3/uL; Basophil% 0.5 % (0-1); Hematocrit 43.9 % (40-54); Hemoglobin 14.5 g/dL (13.0-16.5); Lymphocyte # 1.52 X10^3/ul (0.83-4.51); Lymphocyte % 14.9 % (19-41); Mean Platelet Vol. 10.3 fl (6.2-12.0); Monocyte% 7.9 % (0-10); NRBC Flagged by Analyzer 0 % (0-5); Neutrophil # 7.65 X10^3/uL (2.7-7.7); Neutrophil % 75.1 % (47-70); Platelet Count 119 K/mm3 (150-450); RBC Distribution Width CV 13.9 % (11.6-14.6); RBC Distribution Width SD 50.8 fl (35.1-43.9); Red Blood Count 4.39 M/mm3 (4.6-6.2); White Blood Count 10.2 K/mm3 (4.4-11.0)
--- NOTE | 2023-08-01 17:55 | RAD_ITS ---
STUDY: X-RAY CHEST REASON FOR EXAM: Male, 83 years old. Hypotension TECHNIQUE: Single AP portable view of the chest. COMPARISON: None. FINDINGS: There are monitoring devices. The lungs are clear and expanded. There is no demonstrated pleural abnormality. Normal size heart. Normal mediastinum and len. Normal visualized pulmonary arteries. There is atherosclerotic tortuosity of the aortic arch and descending thoracic aorta. Normal visualized thoracic spine. There are healed right fifth through seventh rib fractures. There is no demonstrated abnormality of the visualized soft tissue structures of the upper abdomen. RAD/Chest 1 View (Portable) IMPRESSION: No acute cardiopulmonary disease. Electronically Signed: Rogelio Awad MD at 18:08 EST ,
[2023-08-01 18:02] LABS: International Normalized Ratio 1.3; Prothrombin Time (Protime)PT. 16.5 SECONDS (11.7-14.9)
[2023-08-01 18:03] LABS: Partial Thromboplast Time 33.4 Seconds (24.1-36.2)
--- OUTSIDE RECORDS SUMMARY | 2023-08-01 18:19 | XMS RPT_ITS | CCD ---
Author Name Unknown Address [address] [facility] [facility] [address] [place] [address] Organization [facility] Care Team Providers Care Electronic Assembly Name Role Phone ERICK MINER Unavailable Unavail able ERICK MINER Unavailable Unavail able Coco Davis MD Primary Care Provider Coco Davis MD Primary Care Provider Coco Davis MD Primary Care Provider Coco Davis MD Primary Care Provider [phone] COCO DAVIS Primary Care Unavailable COCO DAVIS Attending Unavailable COCO DAVIS Primary Care Unavailable COCO DAVIS Primary Care Unavailable COCO DAVIS Referring Unavailable COCO DAVIS Referring Unavailable COCO DAVIS Primary Care Unavailable COCO DAVIS Attending Unavailable COCO DAVIS Primary Care Unavailable COCO DAVIS Referring Unavailable COCO DAVIS Primary Care Unavailable COCO DAVIS Primary Care Unavailable COCO DAVIS Attending Unavailable COCO DAVIS Primary Care Unavailable COCO DAVIS Attending Unavailable OCCO DAVIS Primary Care Unavailable COCO DAVIS Referring Unavailable COCO DAVIS Attending Unavailable COCO DAVIS Primary Care Unavailable Allergies Allergy Classification Reported Allergen(s) Allergy Type Date of Onset Reaction(s) Facility (20 sources) lisinopril; Translations: [LISINOPRIL] Drug Allergy 0 [facility] Repository (20 sources) AMOXICILLIN-POT CLAVULANATE; Translations: [AMOXICILLIN-POT CLAVULANATE] Propensity to adverse reactions to drug (disorder) 6 [facility] Repository Medications Current Medications Medication Drug Class(es) Dates Sig (Normalized) Sig (Original) enteric contrast (will be provided with radiology test) (1 source) Start: 10-01-2022 End: 10-01-2022 take 1 dose by mouth once, then take 1 dose by mouth once enteric contrast (will be provided with radiology test) Take 1 Each by mouth one time only for [address] ABD/PEL WO Routine order Administer, As Directed One Time Only, via Oral, Rectal, both Oral and Rectal, Enteric Tube, Stoma or Indwelling Catheter, Enteric Contrast as designated per enteric contrast guidelines 1 Each 0 10/01/2022 10/01/2022 Active Completed/Discontinued Medications Medication Drug Class(es) Dates Sig (Normalized) Sig (Original) amLODIPine 5 mg oral tablet (19 sources) Dihydropyridine Calcium Channel Kristi Start: 03-08-2022 End: 02-12-2023 take 1 tablet by mouth once daily amLODIPine (NORVASC) 5 mg tablet Indications: Essential hypertension, benign Take 1 tablet by mouth once daily. 90 tablet 3 02/12/2023 Active Problems Active Problems Problem Classification Problem Date Documented Da te Episodic/Chronic Anxiety disorders (14 sources) Mixed anxiety and depressive disorder; Translations: [Other specified anxiety disorders] Onset: 2 Chronic Aortic; peripheral; and visceral artery aneurysms (6 sources) Abdominal aortic aneurysm without rupture; Translations: [Abdominal aortic aneurysm (AAA) without rupture, unspecified part] Onset: 3 Chronic Chronic kidney disease (16 sources) Chronic kidney disease stage 3; Translations: [Chronic kidney disease, stage III (moderate)] Onset: 8 06-29-2008 Chronic Chronic kidney disease (1 source) Chronic kidney disease; Translations: [Stage 3 chronic kidney disease, unspecified whether stage 3a or 3b CKD (HCC)] Onset: 8 Coagulation and hemorrhagic disorders (20 sources) Platelet count below reference range; Translations: [Thrombocytopenia, unspecified] Onset: 4 05-04-2014 Chronic Coronary atherosclerosis and other heart disease (20 sources) Coronary atherosclerosis; Translations: [Atherosclerotic heart disease of [place] coronary artery with unspecified angina pectoris] Onset: 8 01-14-2018 Chronic Disorders of lipid metabolism (20 sources) Mixed hyperlipidemia; Translations: [Mixed hyperlipidemia] Onset: 6 12-09-2015 Chronic Esophageal disorders (18 sources) Gastroesophageal reflux disease; Translations: [Gastro-esophageal reflux disease without esophagitis] Onset: 6 12-24-2005 Chronic Essential hypertension (20 sources) Benign essential hypertension; Translations: [Essential (primary) hypertension] Onset: 6 07-17-2021 Chronic Gout and other crystal arthropathies (18 sources) Gout; Translations: [Gout, unspecified] Onset: 6 07-20-2009 Chronic Hemorrhoids (20 sources) Internal hemorrhoids; Translations: [Other hemorrhoids] 10-04-2007 Episodic Hyperplasia of prostate (20 sources) Benign prostatic hyperplasia; Translations: [Benign prostatic hyperplasia without lower urinary tract symptoms] Onset: 2 11-12-2011 Chronic Immunizations and screening for infectious disease (2 sources) Vaccination needed; Translations: [Encounter for immunization] 05-16-2023 Episodic Malaise and fatigue (2 sources) Asthenia; Translations: [Weakness] Episodic Other aftercare (1 source) Surgical follow-up; Translations: [Encounter for removal of sutures] Episodic Other and unspecified benign neoplasm (18 sources) Benign neoplasm of colon; Translations: [Benign neoplasm of colon, unspecified] 10-04-2007 Episodic Other connective tissue disease (1 source) Muscle pain; Translations: [Myalgia, unspecified site] Episodic Other eye disorders (2 sources) Dermatochalasis of right eye, unspecified eyelid; Translations: [Dermatochalasis of left eye, unspecified eyelid] Onset: 8 Episodic Other gastrointestinal disorders (1 source) Diarrhea; Translations: [Diarrhea, unspecified] Episodic Other gastrointestinal disorders (1 source) History of gastrointestinal bleed; Translations: [Personal history of other diseases of the digestive system] Episodic Other gastrointestinal disorders (1 source) Personal history of other diseases of the digestive system; Translations: [H/O: GI bleed] Onset: 3 Episodic Other hereditary and degenerative nervous system conditions (2 sources) Restless legs; Translations: [Restless legs syndrome] Chronic Other hereditary and degenerative nervous system conditions (1 source) Essential tremor; Translations: [Essential tremor] Chronic Other liver diseases (3 sources) Cirrhosis - non-alcoholic; Translations: [Unspecified cirrhosis of liver] Chronic Other liver diseases (1 source) Unspecified cirrhosis of liver; Translations: [Cirrhosis, nonalcoholic (HCC)] Onset: Chronic Other nervous system disorders (2 sources) Impairment of balance; Translations: [Other abnormalities of gait and mobility] Episodic Residual codes; unclassified (18 sources) Obstructive sleep apnea syndrome; Translations: [Obstructive sleep apnea (adult) (pediatric)] Onset: 11-11-2012 Chronic Residual codes; unclassified (18 sources) Sleep apnea; Translations: [Sleep apnea, unspecified] 07-17-2021 Chronic Spondylosis; intervertebral disc disorders; other back problems (2 sources) Chronic low back pain; Translations: [Chronic midline low back pain, unspecified whether sciatica present] Episodic Past or Other Problems Problem Classification Problem Date Documented Da te Episodic/Chronic Diabetes mellitus without complication (20 sources) Impaired fasting glycemia; Translations: [Impaired fasting glucose] Onset: 01-06-2008 01-06-2008 Episodic Other lower respiratory disease (18 sources) Dyspnea on exertion; Translations: [Dyspnea, unspecified] Onset: 05-11-2014 05-11-2014 Episodic Other nutritional; endocrine; and metabolic disorders (18 sources) Overweight; Translations: [Overweight] Onset: 12-24-2005 12-24-2005 Episodic Other screening for suspected conditions (not mental disorders or infectious disease) (20 sources) Raised prostate specific antigen; Translations: [Elevated prostate specific antigen [PSA]] Onset: 07-01-2012 07-01-2012 Episodic Residual codes; unclassified (18 sources) Family history of ischemic heart disease; Translations: [Family history of ischemic heart disease and other diseases of the circulatory system] Onset: 05-11-2014 05-11-2014 Episodic Urinary tract infections (18 sources) Lower urinary tract infectious disease; Translations: [Urinary tract infection, site not specified] Onset: 11-12-2011 11-12-2011 Episodic Results Test Name Value Interpretation Reference Range Facil ity Vital Signs Date Time Vital Sign Value Performing Clinician Pelon watson 05-16-2023 10:100400 Body weight 84.41 kg Coco Davis MD Work Phone: [facility] 05-16-2023 10:10-0400 Diastolic blood pressure 72 mm[Hg] Coco Davis MD Work Phone: [facility] 05-16-2023 10:10-0400 Heart rate 66 /min Coco Davis MD Work Phone: [facility] 05-16-2023 10:10-0400 Respiratory rate 16 /min Coco Davis MD Work Phone: [facility] 05-16-2023 10:10-0400 Systolic blood pressure 122 mm[Hg] Coco Davis MD Work Phone: [facility] 01-08-2023 10:32-0400 Body weight 84.14 kg Coco Davis MD Work Phone: [facility] 01-08-2023 10:32-0400 Diastolic blood pressure 80 mm[Hg] Coco Davis MD Work Phone: [facility] 01-08-2023 10:32-0400 Heart rate 70 /min Coco Davis MD Work Phone: [facility] 01-08-2023 10:32-0400 Respiratory rate 16 /min Coco Davis MD Work Phone: [facility] 01-08-2023 10:32-0400 Systolic blood pressure 120 mm[Hg] Coco Davis MD Work Phone: [facility] 12-18-2022 13:31-0400 Body temperature 97.11 [degF] Kenroy Pendlebury STORE CONSULTANT.TELEGRAPH SERVICE RATER Work Phone: [facility] 12-18-2022 13:31-0400 Body weight 84.28 kg Kenroy Pendlebury STORE CONSULTANT.TELEGRAPH SERVICE RATER Work Phone: [facility] 12-18-2022 13:31-0400 Diastolic blood pressure 80 mm[Hg] Kenroy Pendlebury STORE CONSULTANT.TELEGRAPH SERVICE RATER Work Phone: [facility] 12-18-2022 13:31-0400 Heart rate 63 /min Kenroy Pendlebury STORE CONSULTANT.TELEGRAPH SERVICE RATER Work Phone: [facility] 12-18-2022 13:31-0400 Respiratory rate 18 /min Kenroy Pendlebury STORE CONSULTANT.TELEGRAPH SERVICE RATER Work Phone: [facility] 12-18-2022 13:31-0400 SaO2% (BldA) [Mass fraction] 96 % Kenroy Simon STORE CONSULTANT.TELEGRAPH SERVICE RATER Work Phone: [facility] 12-18-2022 13:31-0400 Systolic blood pressure 118 mm[Hg] Kenroy Simon STORE CONSULTANT.TELEGRAPH SERVICE RATER Work Phone: [facility] 10-01-2022 12:36-0400 Body weight 82.01 kg Coco Davis MD Work Phone: [facility] 10-01-2022 12:36-0400 Diastolic blood pressure 80 mm[Hg] Coco Davis MD Work Phone: [facility] 10-01-2022 12:36-0400 Heart rate 68 /min Coco Davis MD Work Phone: [facility] 10-01-2022 12:36-0400 Respiratory rate 16 /min Coco Davis MD Work Phone: [facility] 10-01-2022 12:36-0400 Systolic blood pressure 120 mm[Hg] Coco Davis MD Work Phone: [facility] 06-26-2022 11:14-0500 Body weight 83.37 kg Coco Davis MD Work Phone: [facility] 06-26-2022 11:14-0500 Diastolic blood pressure 80 mm[Hg] Coco Davis MD Work Phone: [facility] 06-26-2022 11:14-0500 Heart rate 74 /min Coco Davis MD Work Phone: [facility] 06-26-2022 11:14-0500 Respiratory rate 14 /min Coco Davis MD Work Phone: [facility] 06-26-2022 11:14-0500 Systolic blood pressure 138 mm[Hg] Coco Davis MD Work Phone: [facility] 05-22-2022 11:09-0400 Body weight 82.56 kg Coco Davis MD Work Phone: [facility] 05-22-2022 11:09-0400 Diastolic blood pressure 80 mm[Hg] Coco Davis MD Work Phone: [facility] 05-22-2022 11:09-0400 Heart rate 56 /min Coco Davis MD Work Phone: [facility] 05-22-2022 11:09-0400 Respiratory rate 16 /min Coco Davis MD Work Phone: [facility] 05-22-2022 11:09-0400 Systolic blood pressure 132 mm[Hg] Coco Dvais MD Work Phone: [facility] 11-13-2021 11:43-0400 Body weight 84.19 kg Coco Davis MD Work Phone: [facility] 11-13-2021 11:43-0400 Diastolic blood pressure 80 mm[Hg] Coco Davis MD Work Phone: [facility] 11-13-2021 11:43-0400 Heart rate 68 /min Coco Davis MD Work Phone: [facility] 11-13-2021 11:43-0400 Respiratory rate 16 /min Coco Davis MD Work Phone: [facility] 11-13-2021 11:43-0400 Systolic blood pressure 138 mm[Hg] Coco Davis MD Work Phone: [facility] Encounters Encounter Date Encounter Type Care Provider Facility Start: 07-11-2023 End: 07-11-2023 ambulatory COCO DAVIS Facility:[facility] Start: 05-16-2023 End: 05-16-2023 ambulatory COCO DAVIS Facility:[facility] Start: 05-16-2023 End: 05-16-2023 Patient encounter procedure Coco Davis MD Work Phone: [facility] Procedures Date Procedure Procedure Detail Performing Clinician Start: 05-16-2023 INFLUENZA VACCINE, P RSV FREE, AGE 65+ YR, HIGH DOSE, QUADRIVALENT (FLUZONE HIGH-DOSE) Coco Davis MD Work Phone: Start: 05-16-2023 [email or web address] COVI D-19 VACCINE ( SEASON) AGE 12+ YR Coco Davis MD Work Phone: Start: 10-16-2022 Ct abdomen & pelvis w/o contrast material Coco Davis MD Work Phone: Start: 05-31-2022 Us abdominal aorta r eal time screen study aaa Coco Davis MD Work Phone: Plan of Treatment Date Care Activity Detail Author Start: 09-16-2032 Urine microalbumin profile DTaP,Tdap,Td Vaccine (3 - Td or Tdap) [facility] Start: 05-08-2026 Diabetes Screening Diabetes Screening [facility] Start: 09-28-2025 DIABETES SCREEN DIABETES SCREEN [facility] Start: 05-18-2025 DIABETES SCREEN DIABETES SCREEN [facility] Start: 02-09-2025 DIABETES SCREEN DIABETES SCREEN [facility] Start: 11-08-2024 DIABETES SCREEN DIABETES SCREEN [facility] Start: 05-08-2024 Hepatitis B surface antibody level LDL Cholesterol [facility] Start: 02-02-2024 DIABETES SCREEN DIABETES SCREEN [facility] Start: 09-29-2023 Hepatitis B surface antibody level LDL CHOLESTEROL [facility] Start: 05-18-2023 Hepatitis B surface antibody level LDL CHOLESTEROL [facility] Start: 11-08-2022 Hepatitis B surface antibody level LDL CHOLESTEROL [facility] Start: 09-28-2022 End: 11-28-2022 Comprehensive metabolic 2000 panel - Serum or Plasma [facility] Work Phone: Immunizations Immunization Date Immunization Notes Care Provider Fa cili 05-16-2023 COVID-19 vaccine, ag e 12+ yr, season ([employer]) Coco Davis MD Work Phone: [facility] 05-16-2023 influenza (HD-IIV4) vaccine, age 65+ yr, high dose, quadrivalent, PF (FLUZONE HIGH-DOSE) Coco Davis MD Work Phone: [facility] 05-13-2022 COVID-19 booster vaccine, age 12+ yr, bivalent ([employer]-BIONTECH) Coco Davis MD Work Phone: [facility] 05-13-2022 influenza, high dose seasonal, preservative-free Coco Davis MD Work Phone: [facility] 05-12-2021 influenza, high-dose , quadrivalent vaccine (FLUZONE HIGH DOSE QUADRIVALENT) Coco Davis MD Work Phone: [facility] 12-26-2020 zoster vaccine recombinant Coco Davis MD Work Phone: [facility] 09-06-2020 COVID-19 vaccine, ag e 12+ yr (PFIZER-BIONTECH - PURPLE TOP) Coco Davis MD Work Phone: [facility] 08-17-2020 COVID-19 vaccine, ag e 12+ yr (PFIZER-BIONTECH - PURPLE TOP) Coco Davis MD Work Phone: [facility] 08-04-2020 zoster vaccine recombinant Coco Davis MD Work Phone: [facility] 04-29-2020 influenza, high dose seasonal, preservative-free Coco Davis MD Work Phone: [facility] 05-04-2019 influenza, seasonal, injectable Coco Davis MD Work Phone: [facility] 04-13-2016 influenza, high dose seasonal, preservative-free Coco Davis MD Work Phone: [facility] 07-05-2015 pneumococcal conjuga te vaccine, 13 valent Coco Davis MD Work Phone: [facility] Work Phone: 04-18-2015 influenza, high dose seasonal, preservative-free Coco Davis MD Work Phone: [facility] 05-04-2014 influenza, seasonal, injectable Coco Davis MD Work Phone: [facility] Work Phone: 05-12-2013 influenza virus vacc ine, unspecified formulation Coco Davis MD Work Phone: [facility] Work Phone: 05-06-2012 influenza virus vacc ine, unspecified formulation Coco Davis MD Work Phone: [facility] Work Phone: 05-10-2011 tetanus toxoid, redu eric diphtheria toxoid, and acellular pertussis vaccine, adsorbed Coco Davis MD Work Phone: [facility] Work Phone: 05-10-2011 zoster vaccine, live Coco stover MD Work Phone: [facility] 06-05-2008 influenza virus vacc ine, unspecified formulation Coco Davis MD Work Phone: [facility] Work Phone: 06-10-2007 influenza virus vacc ine, unspecified formulation Coco Davis MD Work Phone: [facility] Work Phone: 05-30-2006 influenza virus vacc ine, unspecified formulation Coco Davis MD Work Phone: [facility] Work Phone: 06-01-2005 influenza virus vacc ine, whole virus Coco Davis MD Work Phone: [facility] Work Phone: 06-01-2005 pneumococcal polysaccharide vaccine, 23 valent Coco Davis MD Work Phone: [facility] Work Phone: 05-03-2000 tetanus and diphther ia toxoids, adsorbed, preservative free, for adult use (2 Lf of tetanus toxoid and 2 Lf of diphtheria toxoid) Coco Davis MD Work Phone: [facility] Work Phone: Payers Date Payer Category Payer Unknown [id number] 2017 Unknown HOSPITAL/MEDICAL GENERIC MEDICAL GENERIC [id number] 2017-Present [phone] [place] [id number] Indemnity [id number] 2017 Unknown [id number] 2004 Medicare MEDICARE MEDICAR E A AND B [id number] 2004-Present [phone] [place] [address] Medicare [id number] 2004 Medicare MEDICARE MEDICAR E A AND B [id number] 2004-Present [phone] [place] [address] Medicare [id number] 2004 Medicare [id number] Social History Date Type Detail Facility Start: 05-12-2021 End: 05-22-2022 Tobacco smoking status NHIS Light tobacco smoker [facility] End: 07-22-2005 History of tobacco use Cigarette Smoker [facility] Start: 05-12-2021 End: 05-22-2022 Tobacco use and exposure Smokeless tobacco non-user [facility] Start: 05-12-2021 End: 05-22-2022 Alcohol intake Current drinker of alcohol (finding) [facility] Start: 07-04-2019 End: 01-05-2020 History SDOH Alcohol Frequency 2 [facility] Start: 07-04-2019 End: 01-05-2020 History SDOH Alcohol Std Drinks 1 [facility] Start: 07-04-2019 History SDOH Social Connections Meetings 3 [facility] Start: 07-04-2019 History SDOH Physica l Activity DPW 0 [facility] Start: 01-05-2020 History SDOH Financial 5 [facility] Start: 07-03-2019 Education 18 [facility] Start: 05-06-2012 End: 05-22-2022 Tobacco Comment 3 cigs daily in s; prior <1/2 PPD x at least 30y [facility] Start: 1940 Sex Assigned At Not on file [facility] Start: 11-03-2021 End: 05-22-2022 Exposure to SARS-CoV-2 (event) Not sure [facility] Start: 07-03-2019 End: 02-12-2022 History of Social function [facility] Start: 07-03-2019 End: 02-12-2022 Social connection and isolation panel [facility] Do you belong to any clubs or organizations such as cheondoism groups, unions, fraternal or athletic groups, or school groups? Yes [facility] Are you now , , , , never or living with a partner? [facility] How often to you hav e a drink containing alcohol? Monthly or less [facility] How many standard dr inks containing alcohol do you have on a typical day? 1 or 2 [facility] How often do you hav e 6 or more drinks on 1 occasion? Never [facility] How hard is it for y ou to pay for the very basics like food, housing, medical care, and heating Not hard at all [facility] Work Phone: Do you feel stress - tense, restless, nervous, or anxious, or unable to sleep at night because your mind is troubled all the time - these days [OSQ] Not at all [facility] (I/We) worried wheth er (my/our) food would run out before (I/we) got money to buy more. Never true [facility] Work Phone: Clinical Notes 10-25-2017 to 07-11-2023 Coco Davis MD - 05/16/2023 10:00 AM Sravan Davis MD - 01/08/2023 10:40 AM Colby Simon APRN.TELEGRAPH SERVICE RATER - 12/18/2022 2:13 PM Sravan Davis MD - 10/01/2022 12:40 PM EDT Note Date & Type Note Facility 07-11-2023 Note HNO ID: [id number] Author: Coco Davis MD Service: ? Author Type: Physician Type: Progress Notes Filed: 07/11/2023 3:58 PM Note Text: Chief Complaint Patient presents with: Depression: Follow up HPI Starla Medina is a 83 year old male who presents here today for 2 month follow up. He is not going to [place] this year since he needs to see Dr. Diop. He didn't want to have to find a GI provider in that area. No bowel, Gi, or urinary issues. Gets up 1 x per night to urinate. Taking Flomax 0.4 mg BID and Proscar 5 mg daily for BPH. He uses Imodium once daily for diarrhea. Hx of GI bleed. RLS: Stable on requip 0.5 mg, 1-2 pills at bedtime prn. Lipid: Taking Crestor 10 mg every other day. Tolerating well. Denies much exercise but tries to watch diet. he is reading labels now. HTN: Does not check BP at home. Taking Norvasc 5 mg daily and Diovan 80 mg daily. No chest pains, dizziness, or SOB. He has stopped using regular start and is now using Nu Salt. He is reading labels now. HANNAH/Depression: Started on Lexapro 5 mg daily last visit. Was on Zoloft 50 mg but weaned off. He still tears up when he thinks or talks about his son in laws passing. He would like to try something else for the depression. Pt does not feel that the Lexapro has helped much. Cirrhosis: monitored with labs, have been stable. Referred to Gastro last visit. Pt had a CT done and labs done due to having bloating in the stomach and gaining 20 lbs in 10 day period[address] He saw Dr. Diop for this. Was started Lasix 40 mg daily and Aldactone 50 mg 2 pills once daily. The weight is down again. Pt feels his stomach is back to normal. He stated he just had weakness all over when this started. He is urinating a lot. Has follow up with Dr Weiss next month. He checks weight daily, has been stable the last few days give or take 1 lbs. He does have a little SOB but nothing too bad. He has been having issues with balance, states he will be walking and will start leaning left or right. This has worsened over the last few weeks since having all the fluid on his abdomen. He does not have any issues while driving. He denies any headaches or being ill. He does have some back pain but that improves with movement. Past medical history, appointments, medications, allergies reviewed. Previous Medical History PAST MEDICAL HISTORY Diagnosis Date Abnormal stress test small inferior defect 04/2014 CKD (chronic kidney disease), stage III (HCC) Essential hypertension, benign Gout, unspecified rare episodes Hyperlipidemia Hyperplasia of prostate Impaired fasting glucose Nasal congestion Personal history of colonic polyps Sleep apnea declines PSG Thrombocytopenia (HCC) Previous Surgical History PAST SURGICAL HISTORY Procedure Laterality Date BLEPHAROPLASTY, UPPER EYELID Bilateral 10/25/17 Dr. Erick Miner, medically necessary COLONOSCOPY AND POLYPECTOMY 08/02/2004 COLONOSCOPY FLX DX W/COLLJ SPEC WHEN PFRMD 12/10/2007 COLONOSCOPY FLX DX W/COLLJ SPEC WHEN PFRMD 01/06/2013 repeat due 2018 COLONOSCOPY GEN ANES N/A 03/23/2021 PAST SURGICAL HISTORY OF pilonidal cyst removed REMOVE CATARACT, INSERT LENS,EX bilateral RPR 1ST INGUN HRNA AGE 4 YRS/> REDUCIBLE Right hernia repair, inguinal VASECTOMY UNI/BI SPX W/POSTOP SEMEN EXAMS Family History FAMILY HISTORY Problem Relation Age of Onset Cancer Mother 55 metastatic Heart Father Coronary Artery Disease Sister CABG Coronary Artery Disease Brother CABG Cancer Brother testicular Patient Allergies ALLERGIES Allergen Reactions Augmentin [Amoxicil* angioedema Lisinopril Cough Current Medications Current Outpatient Medications on File Prior to Visit Medication Sig escitalopram oxalate (LEXAPRO) 5 mg tablet Take 1 tablet by mouth once daily. valsartan (DIOVAN) 80 mg tablet Take 1 tablet by mouth once daily. rOPINIRole (REQUIP) 0.5 mg tablet Take 1-2 tablets by mouth at bedtime as needed. finasteride (PROSCAR) 5 mg tablet Take 1 tablet by mouth once daily. tamsulosin (FLOMAX) 0.4 mg Take 1 capsule by mouth twice daily. rosuvastatin (CRESTOR) 10 mg tablet Takes 1 tab every other day. amLODIPine (NORVASC) 5 mg tablet Take 1 tablet by mouth once daily. nitroglycerin sublingual (NITROQUICK) 0.4 mg SL tablet Dissolve 1 tablet under the tongue as needed. for chest pain,every 5 min x3 No current facility-administered medications on file prior to visit. Social History Social History Tobacco Use Smoking status: Light Smoker Years: 50 Types: Cigarettes Last attempt to quit: 2005 Years since quittin.9 Smokeless tobacco: Never Tobacco comments: 3 cigs daily in s; prior <1/2 PPD x at least 30y Vaping Use Vaping Use: Never used Substance Use Topics Alcohol use: Yes Comment: occasionally Drug use: No EXAM: BP 100/58 Pulse 71 Ht 172.7 cm (5' 8 ) Wt 77.1 kg (170 lb) SpO2 97% (more content not included)... [facility] 05-16-2023 Note HNO ID: [id number] Author: Coco Davis MD Service: ? Author Type: Physician Type: Progress Notes Filed: 05/16/2023 12:05 PM Note Text: Chief Complaint Patient presents with: F/U 3 Month Immunizations: Flu vaccination HPI Starla Medina is a 83 year old male who presents here today for 3 month follow up. Goes to [place] from Jul 18 through Aug, just north of [place]. He drives down, takes 3 days to get there. No bowel, Gi, or urinary issues. Gets up 1 x per night to urinate. Taking Flomax 0.4 mg BID and Proscar 5 mg daily for BPH. He uses Imodium once daily for diarrhea. Hx of GI bleed. HTN: Does not check BP at home. Taking Norvasc 5 mg daily and Diovan 80 mg daily. No chest pains, dizziness, or SOB. RLS: Stable on requip 0.5 mg, 1-2 pills at bedtime prn. Lipid: Taking Crestor 10 mg every other day. Tolerating well. Denies much exercise but tries to watch diet. HANNAH/Depression: Was on Zoloft 50 mg but weaned off. He still tears up when he thinks or talks about his son in laws passing. He would like to try something else for the depression. Cirrhosis: monitored with labs, have been stable. He states that his bowels are light in color, wonders if this has something to do with his liver. He states that he has been dealing with congestion in the mornings, coughing spells off and on, and a little SOB about a month. He denies any fever. Was reading about this online, sounded similar to RSV. Pt assured by me that what he had does not sound like RSV. He is tired and weak all the time. Wants to feel like he is 29 years old again. Vision: blurry in the mornings, takes till about noon for him to be able to see clearly enough to drive and read. He does follow with Dr. Gomez at [facility] regularly. Past medical history, appointments, medications, allergies reviewed. Previous Medical History PAST MEDICAL HISTORY Diagnosis Date Abnormal stress test small inferior defect 04/2014 CKD (chronic kidney disease), stage III (HCC) Essential hypertension, benign Gout, unspecified rare episodes Hyperlipidemia Hyperplasia of prostate Impaired fasting glucose Nasal congestion Personal history of colonic polyps Sleep apnea declines PSG Thrombocytopenia (HCC) Previous Surgical History PAST SURGICAL HISTORY Procedure Laterality Date BLEPHAROPLASTY, UPPER EYELID Bilateral 10/25/17 Dr. Erick Miner, medically necessary COLONOSCOPY AND POLYPECTOMY 08/02/2004 COLONOSCOPY FLX DX W/COLLJ SPEC WHEN PFRMD 12/10/2007 COLONOSCOPY FLX DX W/COLLJ SPEC WHEN PFRMD 01/06/2013 repeat due 2018 COLONOSCOPY GEN ANES N/A 03/23/2021 PAST SURGICAL HISTORY OF pilonidal cyst removed REMOVE CATARACT, INSERT LENS,EX bilateral RPR 1ST INGUN HRNA AGE 4 YRS/> REDUCIBLE Right hernia repair, inguinal VASECTOMY UNI/BI SPX W/POSTOP SEMEN EXAMS Family History FAMILY HISTORY Problem Relation Age of Onset Cancer Mother 55 metastatic Heart Father Coronary Artery Disease Sister CABG Coronary Artery Disease Brother CABG Cancer Brother testicular Patient Allergies ALLERGIES Allergen Reactions Augmentin [Amoxicil* angioedema Lisinopril Cough Current Medications Current Outpatient Medications on File Prior to Visit Medication Sig amLODIPine (NORVASC) 5 mg tablet Take 1 tablet by mouth once daily. finasteride (PROSCAR) 5 mg tablet Take 1 tablet by mouth once daily. nitroglycerin sublingual (NITROQUICK) 0.4 mg SL tablet Dissolve 1 tablet under the tongue as needed. for chest pain,every 5 min x3 rOPINIRole (REQUIP) 0.5 mg tablet Take 1-2 tablets by mouth at bedtime as needed. rosuvastatin (CRESTOR) 10 mg tablet Takes 1 tab every other day. tamsulosin (FLOMAX) 0.4 mg Take 1 capsule by mouth twice daily. No current facility-administered medications on file prior to visit. Social History Social History Tobacco Use Smoking status: Light Smoker Years: 50 Types: Cigarettes Last attempt to quit: 2005 Years since quittin.8 Smokeless tobacco: Never Tobacco comments: 3 cigs daily in ; prior <1/2 PPD x at least 30y Vaping Use Vaping Use: Never used Substance Use Topics Alcohol use: Yes Comment: occasionally Drug use: No EXAM: BP 122/72 Pulse 66 Resp 16 Wt 84.4 kg (186 lb 1.6 oz) BMI 28.30 kg/m? General Appearance: Well appearing, alert, in no acute distress, well-hydrated, well nourished. and Overweight. Lungs: Lungs clear to auscultation. No wheezing, rhonchi, rales.. Heart: RRR without murmur, gallop, or rubs. No ectopy. Abdomen: Normal abdominal exam, Abdomen soft, non-tender. Bowel sounds normal. No masses, organomegaly. Health Maintenance List Hepatitis A Vaccine(1 of 2 - Risk 2-dose series) Never done Hepatitis B Vaccine(1 of 3 - Risk 3-dose series) Never done DTaP,Tdap,Td Vaccine(2 - Td or Tdap) due on 05/10/2021 Influenza Vaccine(1) due on 03/22/2023 Covid-19 Vaccine( - 2022- (more content not included)... [facility] 05-16-2023 History of Presen t illness Narrative Chief Complaint Patient presents with: F/U 3 Month Immunizations: Flu vaccination HPI Starla Medina is a 83 year old male who presents here today for 3 month follow up. Goes to [place] from Jul 18 through Aug, just [place] of [place]. He drives down, takes 3 days to get there. No bowel, Gi, or urinary issues. Gets up 1 x per night to urinate. Taking Flomax 0.4 mg BID and Proscar 5 mg daily for BPH. He uses Imodium once daily for diarrhea. Hx of GI bleed. HTN: Does not check BP at home. Taking Norvasc 5 mg daily and Diovan 80 mg daily. No chest pains, dizziness, or SOB. RLS: Stable on requip 0.5 mg, 1-2 pills at bedtime prn. Lipid: Taking Crestor 10 mg every other day. Tolerating well. Denies much exercise but tries to watch diet. HANNAH/Depression: Was on Zoloft 50 mg but weaned off. He still tears up when he thinks or talks about his son in laws passing. He would like to try something else for the depression. Cirrhosis: monitored with labs, have been stable. He states that his bowels are light in color, wonders if this has something to do with his liver. He states that he has been dealing with congestion in the mornings, coughing spells off and on, and a little SOB about a month. He denies any fever. Was reading about this online, sounded similar to RSV. Pt assured by me that what he had does not sound like RSV. He is tired and weak all the time. Wants to feel like he is 29 years old again. Vision: blurry in the mornings, takes till about noon for him to be able to see clearly enough to drive and read. He does follow with Dr. Gomez at [facility] regularly. Past medical history, appointments, medications, allergies reviewed. Previous Medical History PAST MEDICAL HISTORY Diagnosis Date Abnormal stress test small inferior defect 04/2014 CKD (chronic kidney disease), stage III (HCC) Essential hypertension, benign Gout, unspecified rare episodes Hyperlipidemia Hyperplasia of prostate Impaired fasting glucose Nasal congestion Personal history of colonic polyps Sleep apnea declines PSG Thrombocytopenia (HCC) Previous Surgical History PAST SURGICAL HISTORY Procedure Laterality Date BLEPHAROPLASTY, UPPER EYELID Bilateral 10/25/17 Dr. Erick Miner, medically necessary COLONOSCOPY & POLYPECTOMY 08/02/2004 COLONOSCOPY FLX DX W/COLLJ SPEC WHEN PFRMD 12/10/2007 COLONOSCOPY FLX DX W/COLLJ SPEC WHEN PFRMD 01/06/2013 repeat due 2018 COLONOSCOPY GEN ANES N/A 03/23/2021 PAST SURGICAL HISTORY OF pilonidal cyst removed REMOVE CATARACT, INSERT LENS,EX bilateral RPR 1ST INGUN HRNA AGE 5 YRS/> REDUCIBLE Right hernia repair, inguinal VASECTOMY UNI/BI SPX W/POSTOP SEMEN EXAMS Family History FAMILY HISTORY Problem Relation Age of Onset Cancer Mother 55 metastatic Heart Father Coronary Artery Disease Sister CABG Coronary Artery Disease Brother CABG Cancer Brother testicular Patient Allergies ALLERGIES Allergen Reactions Augmentin [Amoxicil* angioedema Lisinopril Cough Current Medications Current Outpatient Medications on File Prior to Visit Medication Sig amLODIPine (NORVASC) 5 mg tablet Take 1 tablet by mouth once daily. finasteride (PROSCAR) 5 mg tablet Take 1 tablet by mouth once daily. nitroglycerin sublingual (NITROQUICK) 0.4 mg SL tablet Dissolve 1 tablet under the tongue as needed. for chest pain,every 5 min x3 rOPINIRole (REQUIP) 0.5 mg tablet Take 1-2 tablets by mouth at bedtime as needed. rosuvastatin (CRESTOR) 10 mg tablet Takes 1 tab every other day. tamsulosin (FLOMAX) 0.4 mg Take 1 capsule by mouth twice daily. No current facility-administered medications on file prior to visit. Social History Social History Tobacco Use Smoking status: Light Smoker Years: 50 Types: Cigarettes Last attempt to quit: 2006 Years since quittin.8 Smokeless tobacco: Never Tobacco comments: 3 cigs daily in ; prior <1/2 PPD x at least 30y Vaping Use Vaping Use: Never used Substance Use Topics Alcohol use: Yes Comment: occasionally Drug use: No EXAM: BP 122/72 Pulse 66 Resp 16 Wt 84.4 kg (186 lb 1.6 oz) BMI 28.30 kg/m General Appearance: Well appearing, alert, in no acute distress, well-hydrated, well nourished. and Overweight. Lungs: Lungs clear to auscultation. No wheezing, rhonchi, rales.. Heart: RRR without murmur, gallop, or rubs. No ectopy. Abdomen: Normal abdominal exam, Abdomen soft, non-tender. Bowel sounds normal. No masses, organomegaly. Health Maintenance List Hepatitis A Vaccine(1 of 2 - Risk 2-dose series) Never done Hepatitis B Vaccine(1 of 3 - Risk 3-dose series) Never done DTaP,Tdap,Td Vaccine(2 - Td or Tdap) due on 05/10/2021 Influenza Vaccine(1) due on 03/22/2023 Covid-19 Vaccine( - 2022- season) due on 03/22/2023 LDL Cholesterol due on 09/29/2023 Diabetes Screening due on 09/28/2025 Advance Directive Discussion Completed Shingrix Vaccine Completed Pneumococcal Vaccine: 65+ Completed Data reviewed Appointment on 05/08/2023 Component Date Value Protein, Total 05/08/2023 6.8 Albumin 05/08/2023 3.5 (L) Calcium, Total 05/08/2023 9.2 Bilirubin, Total 05/08/2023 1.9 (H) Alkaline Phosphatase 05/08/2023 200 (H) AST 05/08/2023 44 (H) ALT 05/08/2023 23 Glucose 05/08/2023 108 (H) BUN 05/08/2023 21 Creatinine 05/08/2023 1.20 Sodium 05/08/2023 142 Potassium 05/08/2023 4.2 Chloride 05/08/2023 112 (H) CO2 05/08/2023 18 (L) Anion Gap 05/08/2023 12 Estimated Glomerular Jose* 05/08/2023 60 Cholesterol, Total 05/08/2023 129 Triglyceride 05/08/2023 118 HDL Cholesterol 05/08/2023 29 (L) Non HDL Cholesterol 05/08/2023 100 Fasting Time 05/08/2023 12 VLDL Cholesterol 05/08/2023 24 TC:HDL Ratio 05/08/2023 4.45 LDL Cholesterol 05/08/2023 76 LDL:HDL Ratio 05/08/2023 2.62 (H) WBC 05/08/2023 5.02 RBC 05/08/2023 4.19 (L) Hemoglobin 05/08/2023 13.6 Hematocrit 05/08/2023 41.1 MCV 05/08/2023 98.1 MCH 05/08/2023 32.5 MCHC 05/08/2023 33.1 RDW-CV 05/08/2023 13.3 Platelet Count 05/08/2023 70 (L) MPV 05/08/2023 11.8 Neutrophils % 05/08/2023 53.1 Abs Neut 05/08/2023 2.67 Lymphocytes % 05/08/2023 28.1 Abs Lymph 05/08/2023 1.41 Monocytes % 05/08/2023 8.6 Abs [place] 05/08/2023 0.43 Eosinophils % 05/08/2023 8.8 Abs Eosin 05/08/2023 0.44 Basophils % 05/08/2023 1.2 Abs Baso 05/08/2023 0.06 Immature Granulocytes % 05/08/2023 0.2 Abs Immature Gran 05/08/2023 <0.03 NRBC 05/08/2023 0.0 Absolute nRBC 05/08/2023 <0.01 Diff Type 05/08/2023 Auto ASSESSMENT/PLAN: 1. Essential hypertension, benign - ICD9: 401.1, ICD10: I10 (primary diagnosis) - Controlled - Continue current medications - Recommend home blood pressure monitoring, to bring results to next visit - Encouraged sodium restriction, DASH or Mediterranean diet - Recommend regular aerobic exercise - Discussed need for and benefit of weight loss. BMI 28.30 kg/(m^2) 2. Need for vaccination - ICD9: V05.9, ICD10: Z23 - PFIZER-BIONTThermal Nomad COVID-19 VACCINE (2022- SEASON) AGE 12+ YR 3. Mixed hyperlipidemia - ICD9: 272.2, ICD10: E78.2 - Controlled - Continue current medications - Counseled on healthy diet and regular exercise - Discussed need for and benefit of weight loss. BMI 28.30 kg/(m^2) 4. Benign prostatic hyperplasia without lower urinary tract symptoms - ICD9: 600.00, ICD10: N40.0 Continue current medications. 5. Anxiety with depression - ICD9: 300.4, ICD10: F41.8 Start Lexapro 5 mg daily 6. Need for influenza vaccination - ICD9: V04.81, ICD10: Z23 - INFLUENZA VACCINE, PRSV FREE, AGE 65+ YR, HIGH DOSE, QUADRIVALENT (FLUZONE HIGH-DOSE) 7. Elevated LFTs - ICD9: 790.6, ICD10: R79.89 Consult Gastro 8. Cirrhosis Consult GI Follow up in 2 months to check on lexapro. No labs needed. I agree with the Chief Complaint, ROS, and Past Histories independently gathered by the clinical underwriting support manager and the remaining scribed note accurately describes my personal service to the patient. Medical Decision Making: Problems: Moderate: 2+ stable chronic illnesses and 1+ chronic illnesses with change Data: Unique test result(s) reviewed: 3+ Risk: Moderate: Drug management Medical Decision Making Level: 4 - Moderate Coco Davis MD The documentation for this note was completed by Christal Becerra Ma acting as scribe for Coco Davis MD. May 16, 2023 10:13 AM. Christal Becerra Ma documented in this encounter [facility] 02-12-2023 Note HNO ID: [id number] Author: Coco Davis MD Service: ? Author Type: Physician Type: Progress Notes Filed: 02/12/2023 11:13 AM Note Text: Chief Complaint Patient presents with: F/U 1 month HPI Starla Medina is a 82 year old male who presents here today for 1 month follow up. Depression/HANNAH: Restarted Zoloft 50 mg daily a month ago due to increased crying and feelings of being depressed and anxious.Feels that he's doing better, was having increased symptoms due to going through some family tragedies, but feels he's doing better. States he doesn't really notice his symptoms being really improved with use of medication. Previously was on Prozac, didn't have side effects with medication. Believes he is having side effects of blurred vision (despite having an eye exam recently), diarrhea, drowsiness/lack of energy and a rash on b/l shoulders. These are all listed as possible side effects. He feels that his moods are doing OK, he has gotten over the series of losses that he had experienced. Pt has dyspnea with exertion, this is listed in his PMHx. Denies any chest pain or dizziness. Has given up riding his motorcycle due to being unsteady. had hip replacement, is doing better up and walking. Past medical history, appointments, medications, allergies reviewed. Previous Medical History PAST MEDICAL HISTORY Diagnosis Date Abnormal stress test small inferior defect 04/2014 CKD (chronic kidney disease), stage III (HCC) Essential hypertension, benign Gout, unspecified rare episodes Hyperlipidemia Hyperplasia of prostate Impaired fasting glucose Nasal congestion Personal history of colonic polyps Sleep apnea declines PSG Thrombocytopenia (HCC) Previous Surgical History PAST SURGICAL HISTORY Procedure Laterality Date BLEPHAROPLASTY, UPPER EYELID Bilateral 10/25/17 Dr. Erick Miner, medically necessary COLONOSCOPY AND POLYPECTOMY 08/02/2004 COLONOSCOPY FLX DX W/COLLJ SPEC WHEN PFRMD 12/10/2007 COLONOSCOPY FLX DX W/COLLJ SPEC WHEN PFRMD 01/06/2013 repeat due 2018 COLONOSCOPY GEN ANES N/A 03/23/2021 PAST SURGICAL HISTORY OF pilonidal cyst removed REMOVE CATARACT, INSERT LENS,EX bilateral RPR 1ST INGUN HRNA AGE 5 YRS/> REDUCIBLE Right hernia repair, inguinal VASECTOMY UNI/BI SPX W/POSTOP SEMEN EXAMS Family History FAMILY HISTORY Problem Relation Age of Onset Cancer Mother 55 metastatic Heart Father Coronary Artery Disease Sister CABG Coronary Artery Disease Brother CABG Cancer Brother testicular Patient Allergies ALLERGIES Allergen Reactions Augmentin [Amoxicil* angioedema Lisinopril Cough Current Medications Current Outpatient Medications on File Prior to Visit Medication Sig sertraline (ZOLOFT) 50 mg tablet Take 1 tablet by mouth once daily. valsartan (DIOVAN) 80 mg tablet Take 1 tablet by mouth once daily. amLODIPine (NORVASC) 5 mg tablet Take 1 tablet by mouth once daily. rosuvastatin (CRESTOR) 10 mg tablet Takes 1 tab every other day. tamsulosin (FLOMAX) 0.4 mg Take 1 capsule by mouth twice daily. finasteride (PROSCAR) 5 mg tablet Take 1 tablet by mouth once daily. rOPINIRole (REQUIP) 0.5 mg tablet Take 1-2 tablets by mouth at bedtime as needed. nitroglycerin sublingual (NITROQUICK) 0.4 mg SL tablet Dissolve 1 tablet under the tongue as needed. for chest pain,every 5 min x3 No current facility-administered medications on file prior to visit. Social History Social History Tobacco Use Smoking status: Light Smoker Years: 50.00 Types: Cigarettes Last attempt to quit: 2006 Years since quittin.5 Smokeless tobacco: Never Tobacco comments: 3 cigs daily in 1999'; prior <1/2 PPD x at least 30y Vaping Use Vaping Use: Never used Substance Use Topics Alcohol use: Yes Comment: occasionally Drug use: No EXAM: BP 124/76 (BP Site: Left Arm, BP Position: Sitting, BP Cuff Size: Regular Adult) Pulse 60 Resp 16 Wt 83.7 kg (184 lb 9.6 oz) BMI 28.07 kg/m? General Appearance: Well appearing, alert, in no acute distress, well-hydrated, well nourished.. Skin: Blotchy rash located on upper b/l arms. Lungs: Lungs clear to auscultation. No wheezing, rhonchi, rales.. Heart: RRR without murmur, gallop, or rubs. No ectopy. Health Maintenance List HEPATITIS A(1 of 2 - Risk 2-dose series) Never done HEPATITIS B(1 of 3 - Risk 3-dose series) Never done DTAP,TDAP,TD(2 - Td or Tdap) due on 05/10/2021 COVID-19 VACCINE(6 - Pfizer series) due on 09/13/2022 INFLUENZA(1) due on 03/22/2023 LDL CHOLESTEROL due on 09/29/2023 DIABETES SCREEN due on 09/28/2025 ADVANCE DIRECTIVE DISCUSSION Completed SHINGRIX VACCINE Completed PNEUMOCOCCAL: 65+ Completed Data reviewed None ASSESSMENT/PLAN: 1. Anxiety with depression - ICD9: 300.4, ICD10: F41.8 - Stop Zoloft 50 mg due to side effects of medication - Cut down to 1/2 tablet for 8 days, then stop completely. 2. Essential h (more content not included)... [facility] 01-08-2023 Note HNO ID: [id number] Author: Coco Davis MD Service: ? Author Type: Physician Type: Progress Notes Filed: 01/08/2023 11:09 AM Note Text: Chief Complaint Patient presents with: F/U 3 Month HPI Starla Medina is a 82 year old male who presents here today for a 3 month follow up. He has a motorcycle he likes to ride, but doesn't make any long trips. He also has some property that he maintains. Has an advanced directive. Allergies: he takes Claritin daily OTC for this. States this month has been bad for him. He is clogged up in the mornings. He does not feel his SOB is due to his allergies. Hx of GI bleed. Issues with diarrhea, takes Imodium. Currently taking Proscar 5 mg once daily and Flomax 0.4 mg bid. No bowel, Gi, or urinary issues. HTN: Denies checking BP. On current regimen of Diovan 80 mg daily and Norvasc 5 mg daily. He has to sit down and rest after walking short distance due to getting SOB. Denies any chest pains or dizziness when he is SOB. The SOB has become more pronounced the last year. Lipids: Stable on current regimen of Crestor 5 mg every other day. He does not get much exercise. Tries to watch diet some, tries to eat sugar free. HANNAH/Depression: Stopped Prozac 40 mg daily at previous OV due to not noticing any difference in his symptoms. He feels he needs to be back on medication, he starts crying every time the subject is brought up about his son in laws who with months of each other. She doesn't feel like he has crying episodes daily but occ he will just start crying. Had a stressful few months. He was mowing his daughters lawn in [place] last month and hit a tree limb, gashed head, had to go to ER and get 4 mehran. He had those removed 2 weeks ago at . No LOC. Prior to that his had fallen while there and broke her hip, had to have hip replaced and was in a SNF there in [place]. She is walking with a walker and doing exercises at home. 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 LFT: Had CT scan due to elevated LFT's. CT scan showed chronic cirrhosis of liver, but appears to be stable. Continuing to monitor. Past medical history, appointments, medications, allergies reviewed. Previous Medical History PAST MEDICAL HISTORY Diagnosis Date Abnormal stress test small inferior defect 04/2014 CKD (chronic kidney disease), stage III (HCC) Essential hypertension, benign Gout, unspecified rare episodes Hyperlipidemia Hyperplasia of prostate Impaired fasting glucose Nasal congestion Personal history of colonic polyps Sleep apnea declines PSG Thrombocytopenia (HCC) Previous Surgical History PAST SURGICAL HISTORY Procedure Laterality Date BLEPHAROPLASTY, UPPER EYELID Bilateral 10/25/17 Dr. Erick Miner, medically necessary COLONOSCOPY AND POLYPECTOMY 08/02/2004 COLONOSCOPY FLX DX W/COLLJ SPEC WHEN PFRMD 12/10/2007 COLONOSCOPY FLX DX W/COLLJ SPEC WHEN PFRMD 01/06/2013 repeat due 2018 COLONOSCOPY GEN ANES N/A 03/23/2021 PAST SURGICAL HISTORY OF pilonidal cyst removed REMOVE CATARACT, INSERT LENS,EX bilateral RPR 1ST INGUN HRNA AGE 5 YRS/> REDUCIBLE Right hernia repair, inguinal VASECTOMY UNI/BI SPX W/POSTOP SEMEN EXAMS Family History FAMILY HISTORY Problem Relation Age of Onset Cancer Mother 55 metastatic Heart Father Coronary Artery Disease Sister CABG Coronary Artery Disease Brother CABG Cancer Brother testicular Patient Allergies ALLERGIES Allergen Reactions Augmentin [Amoxicil* angioedema Lisinopril Cough Current Medications Current Outpatient Medications on File Prior to Visit Medication Sig valsartan (DIOVAN) 80 mg tablet Take 1 tablet by mouth once daily. tamsulosin (FLOMAX) 0.4 mg Take 1 capsule by mouth twice daily. rosuvastatin (CRESTOR) 10 mg tablet Takes 1 tab every other day. finasteride (PROSCAR) 5 mg tablet Take 1 tablet by mouth once daily. amLODIPine (NORVASC) 5 mg tablet Take 1 tablet by mouth once daily. valsartan (DIOVAN) 80 mg tablet Take 1 tablet by mouth once daily. amLODIPine (NORVASC) 5 mg tablet Take 1 tablet by mouth once daily. rosuvastatin (CRESTOR) 10 mg tablet Takes 1 tab every other day. tamsulosin (FLOMAX) 0.4 mg Take 1 capsule by mouth twice daily. finasteride (PROSCAR) 5 mg tablet Take 1 tablet by mouth once daily. rOPINIRole (REQUIP) 0.5 mg tablet Take 1-2 tablets by mouth at bedtime as needed. nitroglycerin sublingual (NITROQUICK) 0.4 mg SL tablet Dissolve 1 tablet under the tongue as needed. for chest pain,every 5 min x3 No current facility-administered medications on file prior to visit. Social History Social History Tobacco Use Smoking status: Light Smoker Years: 50.00 Types: Cigarettes Last attempt to quit: 2005 Years since quittin.4 Smokeless tobacco: Never Tobacco comments: 3 cigs daily in 1999'; prior <1/2 PPD x at least 30y Vaping Use Vaping Use: Never used Substance Use Topics Alcohol use: Ye (more content not included)... [facility] 01-08-2023 History of Presen t illness Narrative Chief Complaint Patient presents with: F/U 3 Month HPI Starla Medina is a 82 year old male who presents here today for a 3 month follow up. He has a motorcycle he likes to ride, but doesn't make any long trips. He also has some property that he maintains. Has an advanced directive. Allergies: he takes Claritin daily OTC for this. States this month has been bad for him. He is clogged up in the mornings. He does not feel his SOB is due to his allergies. Hx of GI bleed. Issues with diarrhea, takes Imodium. Currently taking Proscar 5 mg once daily and Flomax 0.4 mg bid. No bowel, Gi, or urinary issues. HTN: Denies checking BP. On current regimen of Diovan 80 mg daily and Norvasc 5 mg daily. He has to sit down and rest after walking short distance due to getting SOB. Denies any chest pains or dizziness when he is SOB. The SOB has become more pronounced the last year. Lipids: Stable on current regimen of Crestor 5 mg every other day. He does not get much exercise. Tries to watch diet some, tries to eat sugar free. HANNAH/Depression: Stopped Prozac 40 mg daily at previous OV due to not noticing any difference in his symptoms. He feels he needs to be back on medication, he starts crying every time the subject is brought up about his son in laws who with months of each other. She doesn't feel like he has crying episodes daily but occ he will just start crying. Had a stressful few months. He was mowing his daughters lawn in [place] last month and hit a tree limb, gashed head, had to go to ER and get 4 mehran. He had those removed 2 weeks ago at . No LOC. Prior to that his had fallen while there and broke her hip, had to have hip replaced and was in a SNF there in [place]. She is walking with a walker and doing exercises at home. 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 LFT: Had CT scan due to elevated LFT's. CT scan showed chronic cirrhosis of liver, but appears to be stable. Continuing to monitor. Past medical history, appointments, medications, allergies reviewed. Previous Medical History PAST MEDICAL HISTORY Diagnosis Date Abnormal stress test small inferior defect 04/2014 CKD (chronic kidney disease), stage III (HCC) Essential hypertension, benign Gout, unspecified rare episodes Hyperlipidemia Hyperplasia of prostate Impaired fasting glucose Nasal congestion Personal history of colonic polyps Sleep apnea declines PSG Thrombocytopenia (HCC) Previous Surgical History PAST SURGICAL HISTORY Procedure Laterality Date BLEPHAROPLASTY, UPPER EYELID Bilateral 10/25/17 Dr. Erick Miner, medically necessary COLONOSCOPY & POLYPECTOMY 08/02/2004 COLONOSCOPY FLX DX W/COLLJ SPEC WHEN PFRMD 12/10/2007 COLONOSCOPY FLX DX W/COLLJ SPEC WHEN PFRMD 01/06/2013 repeat due 2018 COLONOSCOPY GEN ANES N/A 03/23/2021 PAST SURGICAL HISTORY OF pilonidal cyst removed REMOVE CATARACT, INSERT LENS,EX bilateral RPR 1ST INGUN HRNA AGE 4 YRS/> REDUCIBLE Right hernia repair, inguinal VASECTOMY UNI/BI SPX W/POSTOP SEMEN EXAMS Family History FAMILY HISTORY Problem Relation Age of Onset Cancer Mother 55 metastatic Heart Father Coronary Artery Disease Sister CABG Coronary Artery Disease Brother CABG Cancer Brother testicular Patient Allergies ALLERGIES Allergen Reactions Augmentin [Amoxicil* angioedema Lisinopril Cough Current Medications Current Outpatient Medications on File Prior to Visit Medication Sig valsartan (DIOVAN) 80 mg tablet Take 1 tablet by mouth once daily. tamsulosin (FLOMAX) 0.4 mg Take 1 capsule by mouth twice daily. rosuvastatin (CRESTOR) 10 mg tablet Takes 1 tab every other day. finasteride (PROSCAR) 5 mg tablet Take 1 tablet by mouth once daily. amLODIPine (NORVASC) 5 mg tablet Take 1 tablet by mouth once daily. valsartan (DIOVAN) 80 mg tablet Take 1 tablet by mouth once daily. amLODIPine (NORVASC) 5 mg tablet Take 1 tablet by mouth once daily. rosuvastatin (CRESTOR) 10 mg tablet Takes 1 tab every other day. tamsulosin (FLOMAX) 0.4 mg Take 1 capsule by mouth twice daily. finasteride (PROSCAR) 5 mg tablet Take 1 tablet by mouth once daily. rOPINIRole (REQUIP) 0.5 mg tablet Take 1-2 tablets by mouth at bedtime as needed. nitroglycerin sublingual (NITROQUICK) 0.4 mg SL tablet Dissolve 1 tablet under the tongue as needed. for chest pain,every 5 min x3 No current facility-administered medications on file prior to visit. Social History Social History Tobacco Use Smoking status: Light Smoker Years: 50.00 Types: Cigarettes Last attempt to quit: 2006 Years since quittin.4 Smokeless tobacco: Never Tobacco comments: 3 cigs daily in 1999'; prior <1/2 PPD x at least 30y Vaping Use Vaping Use: Never used Substance Use Topics Alcohol use: Yes Comment: occasionally Drug use: No EXAM: BP 120/80 Pulse 70 Resp 16 Wt 84.1 kg (185 lb 8 oz) BMI 28.21 kg/m General Appearance: Well appearing, alert, in no acute distress, well-hydrated, well nourished.. Lungs: Lungs clear to auscultation. No wheezing, rhonchi, rales.. Heart: RRR without murmur, gallop, or rubs. No ectopy. Extremities: No deformities, edema, skin discoloration, clubbing or cyanosis. Good capillary refill. B/l legs. Health Maintenance List HEPATITIS A(1 of 2 - Risk 2-dose series) Never done HEPATITIS B(1 of 3 - Risk 3-dose series) Never done DTAP,TDAP,TD(2 - Td or Tdap) due on 05/10/2021 ADVANCE DIRECTIVE DISCUSSION due on 07/22/2022 LDL CHOLESTEROL due on 09/29/2023 DIABETES SCREEN due on 09/28/2025 INFLUENZA Completed SHINGRIX VACCINE Completed COVID-19 VACCINE Completed PNEUMOCOCCAL: 65+ Completed Data reviewed None ASSESSMENT/PLAN: 1. Anxiety with depression - ICD9: 300.4, ICD10: F41.8 (primary diagnosis) Uncontrolled Start Zoloft 50 mg once daily 2. Essential hypertension, benign - ICD9: 401.1, ICD10: I10 - Controlled - Continue current medications - Recommend home blood pressure monitoring, to bring results to next visit - Encouraged sodium restriction, DASH or Mediterranean diet - Recommend regular aerobic exercise 3. Mixed hyperlipidemia - ICD9: 272.2, ICD10: E78.2 - Controlled - Continue current medications - Counseled on healthy diet and regular exercise - Discussed need for and benefit of weight loss. BMI 28.21 kg/(m^2) 4. Benign prostatic hyperplasia without lower urinary tract symptoms - ICD9: 600.00, ICD10: N40.0 Stable Continue current medications. Follow up in 1 month to check on zoloft I agree with the Chief Complaint, ROS, and Past Histories independently gathered by the clinical underwriting support manager and the remaining scribed note accurately describes my personal service to the patient. Medical Decision Making: Problems: Moderate: 1+ chronic illnesses with change and 2+ stable chronic illnesses Risk: Moderate: Drug management Medical Decision Making Level: 4 - Moderate Coco Davis MD The documentation for this note was completed by Christal Becerra Ma acting as scribe for Coco Davis MD. January 08, 2023 10:39 AM. Christal Becerra Ma documented in this encounter [facility] 12-18-2022 Note HNO ID: [id number] Author: Kenroy Simon APRN.TELEGRAPH SERVICE RATER Service: ? Author Type: Nurse Practitioner Type: Progress Notes Filed: 12/18/2022 2:18 PM Note Text: Subjective HPI Nontoxic-appearing male presents urgent care requesting staple removal. States had 4 mehran placed on top of head 5 days ago. States 5 days ago he struck his head on a tree branch. Presents today for staple removal. No complaints. No drainage. No fevers. No headache. No pain. .Patient presents with: Suture Removal: Remove 4 mehran from head PAST MEDICAL HISTORY Diagnosis Date Abnormal stress test small inferior defect 04/2014 CKD (chronic kidney disease), stage III (HCC) Essential hypertension, benign Gout, unspecified rare episodes Hyperlipidemia Hyperplasia of prostate Impaired fasting glucose Nasal congestion Personal history of colonic polyps Sleep apnea declines PSG Thrombocytopenia (HCC) PAST SURGICAL HISTORY Procedure Laterality Date BLEPHAROPLASTY, UPPER EYELID Bilateral 10/25/17 Dr. Erick Miner, medically necessary COLONOSCOPY AND POLYPECTOMY 08/02/2004 COLONOSCOPY FLX DX W/COLLJ SPEC WHEN PFRMD 12/10/2007 COLONOSCOPY FLX DX W/COLLJ SPEC WHEN PFRMD 01/06/2013 repeat due 2017 COLONOSCOPY GEN ANES N/A 03/23/2021 PAST SURGICAL HISTORY OF pilonidal cyst removed REMOVE CATARACT, INSERT LENS,EX bilateral RPR 1ST INGUN HRNA AGE 4 YRS/> REDUCIBLE Right hernia repair, inguinal VASECTOMY UNI/BI SPX W/POSTOP SEMEN EXAMS ALLERGIES Augmentin [Amoxicillin-Pot Clavulanate] and Lisinopril MEDICATIONS valsartan (DIOVAN) 80 mg tablet Take 1 tablet by mouth once daily. tamsulosin (FLOMAX) 0.4 mg Take 1 capsule by mouth twice daily. rosuvastatin (CRESTOR) 10 mg tablet Takes 1 tab every other day. finasteride (PROSCAR) 5 mg tablet Take 1 tablet by mouth once daily. amLODIPine (NORVASC) 5 mg tablet Take 1 tablet by mouth once daily. rosuvastatin (CRESTOR) 10 mg tablet Takes 1 tab every other day. tamsulosin (FLOMAX) 0.4 mg Take 1 capsule by mouth twice daily. finasteride (PROSCAR) 5 mg tablet Take 1 tablet by mouth once daily. rOPINIRole (REQUIP) 0.5 mg tablet Take 1-2 tablets by mouth at bedtime as needed. nitroglycerin sublingual (NITROQUICK) 0.4 mg SL tablet Dissolve 1 tablet under the tongue as needed. for chest pain,every 5 min x3 valsartan (DIOVAN) 80 mg tablet Take 1 tablet by mouth once daily. amLODIPine (NORVASC) 5 mg tablet Take 1 tablet by mouth once daily. FAMILY HISTORY Problem Relation Age of Onset Cancer Mother 55 metastatic Heart Father Coronary Artery Disease Sister CABG Coronary Artery Disease Brother CABG Cancer Brother testicular Social History Tobacco Use Smoking status: Light Smoker Years: 50.00 Types: Cigarettes Last attempt to quit: 2005 Years since quittin.4 Smokeless tobacco: Never Tobacco comments: 3 cigs daily in s; prior <1/2 PPD x at least 30y Vaping Use Vaping Use: Never used Substance Use Topics Alcohol use: Yes Comment: occasionally Drug use: No .Patient presents with: Suture Removal: Remove 4 mehran from head PAST MEDICAL HISTORY Diagnosis Date Abnormal stress test small inferior defect 04/2014 CKD (chronic kidney disease), stage III (HCC) Essential hypertension, benign Gout, unspecified rare episodes Hyperlipidemia Hyperplasia of prostate Impaired fasting glucose Nasal congestion Personal history of colonic polyps Sleep apnea declines PSG Thrombocytopenia (HCC) PAST SURGICAL HISTORY Procedure Laterality Date BLEPHAROPLASTY, UPPER EYELID Bilateral 10/25/17 Dr. Erick Miner, medically necessary COLONOSCOPY AND POLYPECTOMY 08/02/2004 COLONOSCOPY FLX DX W/COLLJ SPEC WHEN PFRMD 12/10/2007 COLONOSCOPY FLX DX W/COLLJ SPEC WHEN PFRMD 01/06/2013 repeat due 2018 COLONOSCOPY GEN ANES N/A 03/23/2021 PAST SURGICAL HISTORY OF pilonidal cyst removed REMOVE CATARACT, INSERT LENS,EX bilateral RPR 1ST INGUN HRNA AGE 4 YRS/> REDUCIBLE Right hernia repair, inguinal VASECTOMY UNI/BI SPX W/POSTOP SEMEN EXAMS ALLERGIES Augmentin [Amoxicillin-Pot Clavulanate] and Lisinopril MEDICATIONS valsartan (DIOVAN) 80 mg tablet Take 1 tablet by mouth once daily. tamsulosin (FLOMAX) 0.4 mg Take 1 capsule by mouth twice daily. rosuvastatin (CRESTOR) 10 mg tablet Takes 1 tab every other day. finasteride (PROSCAR) 5 mg tablet Take 1 tablet by mouth once daily. amLODIPine (NORVASC) 5 mg tablet Take 1 tablet by mouth once daily. rosuvastatin (CRESTOR) 10 mg tablet Takes 1 tab every other day. tamsulosin (FLOMAX) 0.4 mg Take 1 capsule by mouth twice daily. finasteride (PROSCAR) 5 mg tablet Take 1 tablet by mouth once daily. rOPINIRole (REQUIP) 0.5 mg tablet Take 1-2 tablets by mouth at bedtime as needed. nitroglycerin sublingual (NITROQUICK) 0.4 mg SL tablet Dissolve 1 tablet under the tongue as needed. for chest pain,every 5 min x3 valsartan (DIOVAN) 80 mg tablet T (more content not included)... [facility] 12-18-2022 History of Presen t illness Narrative Images from the original note were not included. Subjective HPI Nontoxic-appearing male presents urgent care requesting staple removal. States had 4 mehran placed on top of head 5 days ago. States 5 days ago he struck his head on a tree branch. Presents today for staple removal. No complaints. No drainage. No fevers. No headache. No pain. .Patient presents with: Suture Removal: Remove 4 mehran from head PAST MEDICAL HISTORY Diagnosis Date Abnormal stress test small inferior defect 04/2014 CKD (chronic kidney disease), stage III (HCC) Essential hypertension, benign Gout, unspecified rare episodes Hyperlipidemia Hyperplasia of prostate Impaired fasting glucose Nasal congestion Personal history of colonic polyps Sleep apnea declines PSG Thrombocytopenia (HCC) PAST SURGICAL HISTORY Procedure Laterality Date BLEPHAROPLASTY, UPPER EYELID Bilateral 10/25/17 Dr. Erick Miner, medically necessary COLONOSCOPY & POLYPECTOMY 08/02/2004 COLONOSCOPY FLX DX W/COLLJ SPEC WHEN PFRMD 12/10/2007 COLONOSCOPY FLX DX W/COLLJ SPEC WHEN PFRMD 01/06/2013 repeat due 2018 COLONOSCOPY GEN ANES N/A 03/23/2021 PAST SURGICAL HISTORY OF pilonidal cyst removed REMOVE CATARACT, INSERT LENS,EX bilateral RPR 1ST INGUN HRNA AGE 4 YRS/> REDUCIBLE Right hernia repair, inguinal VASECTOMY UNI/BI SPX W/POSTOP SEMEN EXAMS ALLERGIES Augmentin [Amoxicillin-Pot Clavulanate] and Lisinopril MEDICATIONS valsartan (DIOVAN) 80 mg tablet Take 1 tablet by mouth once daily. tamsulosin (FLOMAX) 0.4 mg Take 1 capsule by mouth twice daily. rosuvastatin (CRESTOR) 10 mg tablet Takes 1 tab every other day. finasteride (PROSCAR) 5 mg tablet Take 1 tablet by mouth once daily. amLODIPine (NORVASC) 5 mg tablet Take 1 tablet by mouth once daily. rosuvastatin (CRESTOR) 10 mg tablet Takes 1 tab every other day. tamsulosin (FLOMAX) 0.4 mg Take 1 capsule by mouth twice daily. finasteride (PROSCAR) 5 mg tablet Take 1 tablet by mouth once daily. rOPINIRole (REQUIP) 0.5 mg tablet Take 1-2 tablets by mouth at bedtime as needed. nitroglycerin sublingual (NITROQUICK) 0.4 mg SL tablet Dissolve 1 tablet under the tongue as needed. for chest pain,every 5 min x3 valsartan (DIOVAN) 80 mg tablet Take 1 tablet by mouth once daily. amLODIPine (NORVASC) 5 mg tablet Take 1 tablet by mouth once daily. FAMILY HISTORY Problem Relation Age of Onset Cancer Mother 55 metastatic Heart Father Coronary Artery Disease Sister CABG Coronary Artery Disease Brother CABG Cancer Brother testicular Social History Tobacco Use Smoking status: Light Smoker Years: 50.00 Types: Cigarettes Last attempt to quit: 2005 Years since quittin.4 Smokeless tobacco: Never Tobacco comments: 3 cigs daily in 1999's; prior <1/2 PPD x at least 30y Vaping Use Vaping Use: Never used Substance Use Topics Alcohol use: Yes Comment: occasionally Drug use: No .Patient presents with: Suture Removal: Remove 4 mehran from head PAST MEDICAL HISTORY Diagnosis Date Abnormal stress test small inferior defect 04/2014 CKD (chronic kidney disease), stage III (HCC) Essential hypertension, benign Gout, unspecified rare episodes Hyperlipidemia Hyperplasia of prostate Impaired fasting glucose Nasal congestion Personal history of colonic polyps Sleep apnea declines PSG Thrombocytopenia (HCC) PAST SURGICAL HISTORY Procedure Laterality Date BLEPHAROPLASTY, UPPER EYELID Bilateral 10/25/17 Dr. Erick Miner, medically necessary COLONOSCOPY & POLYPECTOMY 08/02/2004 COLONOSCOPY FLX DX W/COLLJ SPEC WHEN PFRMD 12/10/2007 COLONOSCOPY FLX DX W/COLLJ SPEC WHEN PFRMD 01/06/2013 repeat due 2018 COLONOSCOPY GEN ANES N/A 03/23/2021 PAST SURGICAL HISTORY OF pilonidal cyst removed REMOVE CATARACT, INSERT LENS,EX bilateral RPR 1ST INGUN HRNA AGE 4 YRS/> REDUCIBLE Right hernia repair, inguinal VASECTOMY UNI/BI SPX W/POSTOP SEMEN EXAMS ALLERGIES Augmentin [Amoxicillin-Pot Clavulanate] and Lisinopril MEDICATIONS valsartan (DIOVAN) 80 mg tablet Take 1 tablet by mouth once daily. tamsulosin (FLOMAX) 0.4 mg Take 1 capsule by mouth twice daily. rosuvastatin (CRESTOR) 10 mg tablet Takes 1 tab every other day. finasteride (PROSCAR) 5 mg tablet Take 1 tablet by mouth once daily. amLODIPine (NORVASC) 5 mg tablet Take 1 tablet by mouth once daily. rosuvastatin (CRESTOR) 10 mg tablet Takes 1 tab every other day. tamsulosin (FLOMAX) 0.4 mg Take 1 capsule by mouth twice daily. finasteride (PROSCAR) 5 mg tablet Take 1 tablet by mouth once daily. rOPINIRole (REQUIP) 0.5 mg tablet Take 1-2 tablets by mouth at bedtime as needed. nitroglycerin sublingual (NITROQUICK) 0.4 mg SL tablet Dissolve 1 tablet under the tongue as needed. for chest pain,every 5 min x3 valsartan (DIOVAN) 80 mg tablet Take 1 tablet by mouth once daily. amLODIPine (NORVASC) 5 mg tablet Take 1 tablet by mouth once daily. FAMILY HISTORY Problem Relation Age of Onset Cancer Mother 55 metastatic Heart Father Coronary Artery Disease Sister CABG Coronary Artery Disease Brother CABG Cancer Brother testicular Social History Tobacco Use Smoking status: Light Smoker Years: 50.00 Types: Cigarettes Last attempt to quit: 2006 Years since quittin.4 Smokeless tobacco: Never Tobacco comments: 3 cigs daily in 1999's; prior <1/2 PPD x at least 30y Vaping Use Vaping Use: Never used Substance Use Topics Alcohol use: Yes Comment: occasionally Drug use: No BP 118/80 Pulse 63 Temp 36.2 C (97.1 F) (Tympanic) Resp 18 Wt 84.3 kg (185 lb 12.8 oz) SpO2 96% BMI 28.25 kg/m Review of Systems Constitutional: Negative for chills, fever and malaise/fatigue. HENT: Negative for congestion, ear discharge, ear pain, sinus pain and sore throat. Eyes: Negative for blurred vision, pain, discharge and redness. Respiratory: Negative for cough, hemoptysis, sputum production, shortness of breath, wheezing and stridor. Cardiovascular: Negative for chest pain. Gastrointestinal: Negative for abdominal pain, diarrhea, nausea and vomiting. Musculoskeletal: Negative for myalgias. Skin: Negative for itching and rash. Neurological: Negative for dizziness and headaches. Objective Physical Exam Constitutional: General: He is not in acute distress. Appearance: He is not diaphoretic. HENT: Head: Normocephalic. Comments: 4 mehran easily removed. Wound well approximated. No drainage redness or pain. Eyes: Conjunctiva/sclera: Conjunctivae normal. Pupils: Pupils are equal, round, and reactive to light. Cardiovascular: Rate and Rhythm: Normal rate and regular rhythm. Heart sounds: Normal heart sounds. Pulmonary: Effort: Pulmonary effort is normal. No tachypnea, accessory muscle usage or respiratory distress. Breath sounds: Normal breath sounds. No stridor. Musculoskeletal: Cervical back: Normal range of motion. Skin: General: Skin is warm and dry. Neurological: Mental Status: He is alert and oriented to person, place, and time. ASSESSMENT/PLAN: 1. Encounter for staple removal - ICD9: V58.32, ICD10: Z48.02 Mehran easily removed. Tolerated well. Follow-up with PCP as needed. Red flags prompt reevaluation discussed. Patient verbalized understand agrees with plan of care. Kenroy Simon APRN.TELEGRAPH SERVICE RATER documented in this encounter [facility] 12-03-2022 Miscellaneous Notes OK to refill as ordered Coco Davis MD [facility] 10/01/22 NOV 01/08/23 Patient is out of state with his who will be in the hospital for the next few weeks. Please send a short term supply of the medications to the [facility] in [place], [place] on [address]. Pharmacy verified in [facility] Patient has been identified by name and date of : Yes Patient aware RX will be sent to pharmacy. No need to notify patient. Patient phones for refill(s): Requested Prescriptions Pending Prescriptions Disp Refills valsartan (DIOVAN) 80 mg tablet 21 tablet 0 Sig: Take 1 tablet by mouth once daily. tamsulosin (FLOMAX) 0.4 mg 42 capsule 0 Sig: Take 1 capsule by mouth twice daily. rosuvastatin (CRESTOR) 10 mg tablet 21 tablet 0 Sig: Takes 1 tab every other day. finasteride (PROSCAR) 5 mg tablet 21 tablet 0 Sig: Take 1 tablet by mouth once daily. amLODIPine (NORVASC) 5 mg tablet 21 tablet 0 Sig: Take 1 tablet by mouth once daily. Date of last office visit : 10/01/2022 Date of next office visit : 01/08/2023 Last 2 Encounter Wt Readings: Date: Wt: 10/01/2022 82 kg (180 lb 12.8 oz) 06/26/2022 83.4 kg (183 lb 12.8 oz) Please advise. Beatriz Remy Pss documented in this encounter [facility] 10-16-2022 Note HNO ID: [id number] Author: RT Jami(Segundo) Service: ? Author Type: Bag Shop Worker Type: Progress Notes Filed: 10/16/2022 12:00 PM Note Text: Radiology Service Progress Note PATIENT NAME: Starla Medina DATE OF SERVICE: October 16, 2022 TIME: 11:59 AM PATIENT IDENTITY VERIFICATION COMPLETED USING TWO (2) IDENTIFIERS: Name and Date of confirmed by patient verbally. FALL SCREENING: Has the patient had 2 falls in the last year or 1 fall with injury or currently using an Ambulatory Assistive Device (Walker, Cane, Wheelchair, Crutches, etc.)? No PATIENT GENDER DATA: Male PATIENT RELEVANT IMPLANT DATA REVIEWED: Yes RADIOLOGY DEPARTMENT: CT; Exam(s) Completed: Abdomen/Pelvis PERIPHERAL IV DATA: Not applicable SIGNED BY: RT Armando(R) October 16, 2022 11:59 AM [facility] 10-16-2022 History of Presen t illness Narrative Radiology Service Progress Note PATIENT NAME: Starla Medina DATE OF SERVICE: October 16, 2022 TIME: 11:59 AM PATIENT IDENTITY VERIFICATION COMPLETED USING TWO (2) IDENTIFIERS: Name and Date of confirmed by patient verbally. FALL SCREENING: Has the patient had 2 falls in the last year or 1 fall with injury or currently using an Ambulatory Assistive Device (Walker, Cane, Wheelchair, Crutches, etc.)? No PATIENT GENDER DATA: Male PATIENT RELEVANT IMPLANT DATA REVIEWED: Yes RADIOLOGY DEPARTMENT: CT; Exam(s) Completed: Abdomen/Pelvis PERIPHERAL IV DATA: Not applicable SIGNED BY: RT Armando(R) October 16, 2022 11:59 AM documented in this encounter [facility] 10-01-2022 Note HNO ID: [id number] Author: Coco Davis MD Service: ? Author Type: Physician Type: Progress Notes Filed: 10/01/2022 3:00 PM Note Text: Chief Complaint Patient presents with: F/U 3 Month HPI Starla Medina is a 82 year old male who presents here today for 3 month follow up. Taking Proscar 5 mg daily and Flomax 0.4 mg BID. Has been having some diarrhea for the last month, Imodium has helped. Has not seen GI since his GI bleed in 2020; at that time liver was noted to be cirrhotic, but nothing further was done. HTN: Taking Diovan 80 daily and Norvasc 5 mg daily. Denies any chest pains, dizziness, or SOB. Congestion to the head and sinuses, causing difficulty breathing when laying flat in bed, he has been sleeping in a recliner. Has been on going for a long time. Has tried Flonase without much help. Lipid: Taking Crestor 5 mg daily, tolerating well. HANNAH/Depression: Taking Prozac 40 mg daily. He denies noticing any difference on the Prozac and would like to stop. Pt c/o joint pain and weakness, knees, elbows, arms, leg, some swelling to the right knee. Fell Sep 16, went to ER. Nasal fracture, saw ENT He feels unsteady often, going on for the last several months. Past medical history, appointments, medications, allergies reviewed. Previous Medical History PAST MEDICAL HISTORY Diagnosis Date Abnormal stress test small inferior defect 04/2014 CKD (chronic kidney disease), stage III (HCC) Essential hypertension, benign Gout, unspecified rare episodes Hyperlipidemia Hyperplasia of prostate Impaired fasting glucose Nasal congestion Personal history of colonic polyps Sleep apnea declines PSG Thrombocytopenia (HCC) Previous Surgical History PAST SURGICAL HISTORY Procedure Laterality Date BLEPHAROPLASTY, UPPER EYELID Bilateral 10/25/17 Dr. Erick Miner, medically necessary COLONOSCOPY AND POLYPECTOMY 08/02/2004 COLONOSCOPY FLX DX W/COLLJ SPEC WHEN PFRMD 12/10/2007 COLONOSCOPY FLX DX W/COLLJ SPEC WHEN PFRMD 01/06/2013 repeat due 2017 COLONOSCOPY GEN ANES N/A 03/23/2021 PAST SURGICAL HISTORY OF pilonidal cyst removed REMOVE CATARACT, INSERT LENS,EX bilateral RPR 1ST INGUN HRNA AGE 4 YRS/> REDUCIBLE Right hernia repair, inguinal VASECTOMY UNI/BI SPX W/POSTOP SEMEN EXAMS Family History FAMILY HISTORY Problem Relation Age of Onset Cancer Mother 55 metastatic Heart Father Coronary Artery Disease Sister CABG Coronary Artery Disease Brother CABG Cancer Brother testicular Patient Allergies ALLERGIES Allergen Reactions Augmentin [Amoxicil* angioedema Lisinopril Cough Current Medications Current Outpatient Medications on File Prior to Visit Medication Sig FLUoxetine (PROZAC) 40 mg capsule Take 1 capsule by mouth once daily. amLODIPine (NORVASC) 5 mg tablet Take 1 tablet by mouth once daily. rosuvastatin (CRESTOR) 10 mg tablet Takes 1 tab every other day. tamsulosin (FLOMAX) 0.4 mg Take 1 capsule by mouth twice daily. finasteride (PROSCAR) 5 mg tablet Take 1 tablet by mouth once daily. rOPINIRole (REQUIP) 0.5 mg tablet Take 1-2 tablets by mouth at bedtime as needed. valsartan (DIOVAN) 80 mg tablet Take 1 tablet by mouth once daily. nitroglycerin sublingual (NITROQUICK) 0.4 mg SL tablet Dissolve 1 tablet under the tongue as needed. for chest pain,every 5 min x3 No current facility-administered medications on file prior to visit. Social History Social History Tobacco Use Smoking status: Light Smoker Years: 50.00 Types: Cigarettes Last attempt to quit: 2006 Years since quittin.2 Smokeless tobacco: Never Tobacco comments: 3 cigs daily in 1999's; prior <1/2 PPD x at least 30y Vaping Use Vaping Use: Never used Substance Use Topics Alcohol use: Yes Comment: occasionally Drug use: No EXAM: BP 120/80 Pulse 68 Resp 16 Wt 82 kg (180 lb 12.8 oz) BMI 27.49 kg/m? General Appearance: Well appearing, alert, in no acute distress, well-hydrated, well nourished.. Lungs: Lungs clear to auscultation. No wheezing, rhonchi, rales.. Heart: RRR without murmur, gallop, or rubs. No ectopy. Extremities: Right knee: mild medial joint line tenderness Abd: benign. Health Maintenance List DTAP,TDAP,TD(2 - Td or Tdap) due on 05/10/2021 ADVANCE DIRECTIVE DISCUSSION due on 07/22/2022 LDL CHOLESTEROL due on 05/18/2023 DIABETES SCREEN due on 05/18/2025 INFLUENZA Completed SHINGRIX VACCINE Completed COVID-19 VACCINE Completed PNEUMOCOCCAL: 65+ Completed Data reviewed Appointment on 09/28/2022 Component Date Value Protein, Total 09/28/2022 6.9 Albumin 09/28/2022 3.7 (A) Calcium, Total 09/28/2022 9.2 Bilirubin, Total 09/28/2022 1.4 (A) Alkaline Phosphatase 09/28/2022 165 (A) AST 09/28/2022 43 (A) ALT 09/28/2022 26 Glucose 09/28/2022 122 (A) BUN 09/28/2022 18 Creatinine 09/28/2022 1.11 Sodium 09/28/2022 143 Potassium 09/28/2022 3.6 (A) Chloride 09/28/2022 112 (A) (more content not included)... [facility] 10-01-2022 History of Presen t illness Narrative Chief Complaint Patient presents with: F/U 3 Month HPI Starla Medina is a 82 year old male who presents here today for 3 month follow up. Taking Proscar 5 mg daily and Flomax 0.4 mg BID. Has been having some diarrhea for the last month, Imodium has helped. Has not seen GI since his GI bleed in 2020; at that time liver was noted to be cirrhotic, but nothing further was done. HTN: Taking Diovan 80 daily and Norvasc 5 mg daily. Denies any chest pains, dizziness, or SOB. Congestion to the head and sinuses, causing difficulty breathing when laying flat in bed, he has been sleeping in a recliner. Has been on going for a long time. Has tried Flonase without much help. Lipid: Taking Crestor 5 mg daily, tolerating well. HANNAH/Depression: Taking Prozac 40 mg daily. He denies noticing any difference on the Prozac and would like to stop. Pt c/o joint pain and weakness, knees, elbows, arms, leg, some swelling to the right knee. Fell Sep 16, went to ER. Nasal fracture, saw ENT He feels unsteady often, going on for the last several months. Past medical history, appointments, medications, allergies reviewed. Previous Medical History PAST MEDICAL HISTORY Diagnosis Date Abnormal stress test small inferior defect 04/2014 CKD (chronic kidney disease), stage III (HCC) Essential hypertension, benign Gout, unspecified rare episodes Hyperlipidemia Hyperplasia of prostate Impaired fasting glucose Nasal congestion Personal history of colonic polyps Sleep apnea declines PSG Thrombocytopenia (HCC) Previous Surgical History PAST SURGICAL HISTORY Procedure Laterality Date BLEPHAROPLASTY, UPPER EYELID Bilateral 10/25/17 Dr. Erick Miner, medically necessary COLONOSCOPY & POLYPECTOMY 08/02/2004 COLONOSCOPY FLX DX W/COLLJ SPEC WHEN PFRMD 12/10/2007 COLONOSCOPY FLX DX W/COLLJ SPEC WHEN PFRMD 01/06/2013 repeat due 2018 COLONOSCOPY GEN ANES N/A 03/23/2021 PAST SURGICAL HISTORY OF pilonidal cyst removed REMOVE CATARACT, INSERT LENS,EX bilateral RPR 1ST INGUN HRNA AGE 5 YRS/> REDUCIBLE Right hernia repair, inguinal VASECTOMY UNI/BI SPX W/POSTOP SEMEN EXAMS Family History FAMILY HISTORY Problem Relation Age of Onset Cancer Mother 55 metastatic Heart Father Coronary Artery Disease Sister CABG Coronary Artery Disease Brother CABG Cancer Brother testicular Patient Allergies ALLERGIES Allergen Reactions Augmentin [Amoxicil* angioedema Lisinopril Cough Current Medications Current Outpatient Medications on File Prior to Visit Medication Sig FLUoxetine (PROZAC) 40 mg capsule Take 1 capsule by mouth once daily. amLODIPine (NORVASC) 5 mg tablet Take 1 tablet by mouth once daily. rosuvastatin (CRESTOR) 10 mg tablet Takes 1 tab every other day. tamsulosin (FLOMAX) 0.4 mg Take 1 capsule by mouth twice daily. finasteride (PROSCAR) 5 mg tablet Take 1 tablet by mouth once daily. rOPINIRole (REQUIP) 0.5 mg tablet Take 1-2 tablets by mouth at bedtime as needed. valsartan (DIOVAN) 80 mg tablet Take 1 tablet by mouth once daily. nitroglycerin sublingual (NITROQUICK) 0.4 mg SL tablet Dissolve 1 tablet under the tongue as needed. for chest pain,every 5 min x3 No current facility-administered medications on file prior to visit. Social History Social History Tobacco Use Smoking status: Light Smoker Years: 50.00 Types: Cigarettes Last attempt to quit: 2006 Years since quittin.2 Smokeless tobacco: Never Tobacco comments: 3 cigs daily in 1999'; prior <1/2 PPD x at least 30y Vaping Use Vaping Use: Never used Substance Use Topics Alcohol use: Yes Comment: occasionally Drug use: No EXAM: BP 120/80 Pulse 68 Resp 16 Wt 82 kg (180 lb 12.8 oz) BMI 27.49 kg/m General Appearance: Well appearing, alert, in no acute distress, well-hydrated, well nourished.. Lungs: Lungs clear to auscultation. No wheezing, rhonchi, rales.. Heart: RRR without murmur, gallop, or rubs. No ectopy. Extremities: Right knee: mild medial joint line tenderness Abd: benign. Health Maintenance List DTAP,TDAP,TD(2 - Td or Tdap) due on 05/10/2021 ADVANCE DIRECTIVE DISCUSSION due on 07/22/2022 LDL CHOLESTEROL due on 05/18/2023 DIABETES SCREEN due on 05/18/2025 INFLUENZA Completed SHINGRIX VACCINE Completed COVID-19 VACCINE Completed PNEUMOCOCCAL: 65+ Completed Data reviewed Appointment on 09/28/2022 Component Date Value Protein, Total 09/28/2022 6.9 Albumin 09/28/2022 3.7 (A) Calcium, Total 09/28/2022 9.2 Bilirubin, Total 09/28/2022 1.4 (A) Alkaline Phosphatase 09/28/2022 165 (A) AST 09/28/2022 43 (A) ALT 09/28/2022 26 Glucose 09/28/2022 122 (A) BUN 09/28/2022 18 Creatinine 09/28/2022 1.11 Sodium 09/28/2022 143 Potassium 09/28/2022 3.6 (A) Chloride 09/28/2022 112 (A) CO2 09/28/2022 20 (A) Anion Gap 09/28/2022 11 Estimated Glomerular Jose* 09/28/2022 66 Cholesterol, Total 09/28/2022 142 Triglyceride 09/28/2022 96 HDL Cholesterol 09/28/2022 41 Non HDL Cholesterol 09/28/2022 101 Fasting Time 09/28/2022 12 VLDL Cholesterol 09/28/2022 19 TC:HDL Ratio 09/28/2022 3.46 LDL Cholesterol 09/28/2022 82 LDL:HDL Ratio 09/28/2022 2.00 WBC 09/28/2022 4.17 RBC 09/28/2022 3.90 (A) Hemoglobin 09/28/2022 12.6 (A) Hematocrit 09/28/2022 37.0 (A) MCV 09/28/2022 94.9 MCH 09/28/2022 32.3 MCHC 09/28/2022 34.1 RDW-CV 09/28/2022 13.4 Platelet Count 09/28/2022 63 (A) MPV 09/28/2022 12.1 Neutrophils % 09/28/2022 64.5 Abs Neut 09/28/2022 2.69 Lymphocytes % 09/28/2022 19.2 Abs Lymph 09/28/2022 0.80 (A) Monocytes % 09/28/2022 10.8 Abs [place] 09/28/2022 0.45 Eosinophils % 09/28/2022 4.3 Abs Eosin 09/28/2022 0.18 Basophils % 09/28/2022 1.0 Abs Baso 09/28/2022 0.04 Immature Granulocytes % 09/28/2022 0.2 Abs Immature Gran 09/28/2022 <0.03 NRBC 09/28/2022 0.0 Absolute nRBC 09/28/2022 <0.01 Diff Type 09/28/2022 Auto Hemoglobin A1C 09/28/2022 5.4 Estimated Average Glucose 09/28/2022 108 ASSESSMENT/PLAN: 1. Essential hypertension, benign - ICD9: 401.1, ICD10: I10 (primary diagnosis) - good control - Continue current medication(s) - Recommended regular aerobic exercise. - Recommend home blood pressure monitoring, to bring results in on next visit - Goal of BP <140/90 2. Anxiety with depression - ICD9: 300.4, ICD10: F41.8 Will stop Prozac; monitor 3. Thrombocytopenia (HCC) - ICD9: 287.5, ICD10: D69.6 4. Mixed hyperlipidemia - ICD9: 272.2, ICD10: E78.2 - good control - Continue current medication. 5. Elevated LFTs - ICD9: 790.6, ICD10: R79.[address] abd - CT ABD/PEL WO IVCON 6. Cirrhosis, nonalcoholic (HCC) - ICD9: 571.5, ICD10: K74.60 - CT ABD/PEL WO IVCON 7. Dizziness Offered Neuro consult; he declines at this time Had normal CT head with recent fall Follow up in 3 months I agree with the Chief Complaint, ROS, and Past Histories independently gathered by the clinical underwriting support manager and the remaining scribed note accurately describes my personal service to the patient. Medical Decision Making: Problems: Moderate: 2+ stable chronic illnesses and 1+ chronic illnesses with change Data: Unique test result(s) reviewed: 3+ Unique test(s) ordered: 1 Risk: Moderate: Drug management Medical Decision Making Level: 4 - Moderate Coco Davis MD The documentation for this note was completed by Christal Becerra Ma acting as scribe for Coco Davis MD. October 01, 2022 12:37 PM. Christal Becerra Ma documented in this encounter [facility] 09-28-2022 Miscellaneous Notes Orders filed. Adin Sanabria APRN.CNP Pt here to get fasting labs done before appt. Please place orders. Christal Becerra Ma documented in this encounter [facility] documented in this encounter [facility]12-06-2022 History of Present illness Narrative* Coco Davis MD - 06/26/2022 11:20 AM EST Chief Complaint Patient presents with: Follow Up: 1 month HPI Starla Medina is a 82 year old male who presents here today for 1 month follow up. Will be going to [place] for the next several months. He has been eating Activa Yogurt once a day to help with the diarrhea. Stools are always yellow in color. Denies any abdominal pain or n/v. HANNAH/Depression: Was started on Prozac 20 mg daily last visit to help with his sx. He denies much improvement. He has not noticed any side effects from the Prozac. Still gets emotional and upset with all the family tragedy in the family. No SI/HI. Is not doing any counseling. He has used Celexa in the past but that didn't help. He feels tired a lot, states if he sits in the chair he will fall asleep. Balance: Denies any falls in the past year but does notice at times he feels unsteady. He states that he notices it when he goes from sitting to standing or from laying to standing. He also can be walking around the house and become unsteady. He denies feeling dizzy, just feels like balance is off.He uses stair rails for extra support. States he will be walking along and bump into the door jam or feels he needs to grab a hold of something. This is not getting any worse, he has been dealing with this for about a year now. Denies any falls due to the balance. He had screening US for AAA done last month. RESULT: AORTA (AP x TV): Proximal: 2.5 cm x 2.6 cm Mid (level of renal arteries): 3.1 cm x 3.0 cm. The sagittal dimension of the AAA measures approximately 3.4 cm in length. Distal: 1.9 cm x 1.9 cm Common Iliac Arteries (AP x TV): Right: 0.9 cm x 1.1 cm Left: 0.9 cm x 0.9 cm Atherosclerotic plaque: present Past medical history, appointments, medications, allergies reviewed. Previous Medical History PAST MEDICAL HISTORY Diagnosis Date Abnormal stress test small inferior defect 04/2014 CKD (chronic kidney disease), stage III (HCC) Essential hypertension, benign Gout, unspecified rare episodes Hyperlipidemia Hyperplasia of prostate Impaired fasting glucose Nasal congestion Personal history of colonic polyps Sleep apnea declines PSG Thrombocytopenia (HCC) Previous Surgical History PAST SURGICAL HISTORY Procedure Laterality Date BLEPHAROPLASTY, UPPER EYELID Bilateral 10/25/17 Dr. Erick Miner, medically necessary COLONOSCOPY & POLYPECTOMY 08/02/2004 COLONOSCOPY FLX DX W/COLLJ SPEC WHEN PFRMD 12/10/2007 COLONOSCOPY FLX DX W/COLLJ SPEC WHEN PFRMD 01/06/2013 repeat due 2018 COLONOSCOPY GEN ANES N/A 03/23/2021 PAST SURGICAL HISTORY OF pilonidal cyst removed REMOVE CATARACT, INSERT LENS,EX bilateral RPR 1ST INGUN HRNA AGE 5 YRS/> REDUCIBLE Right hernia repair, inguinal VASECTOMY UNI/BI SPX W/POSTOP SEMEN EXAMS Family History FAMILY HISTORY Problem Relation Age of Onset Cancer Mother 55 metastatic Heart Father Coronary Artery Disease Sister CABG Coronary Artery Disease Brother CABG Cancer Brother testicular Patient Allergies ALLERGIES Allergen Reactions Augmentin [Amoxicil* angioedema Lisinopril Cough Current Medications Current Outpatient Medications on File Prior to Visit Medication Sig FLUoxetine (PROZAC) 20 mg capsule Take 1 capsule by mouth once daily. amLODIPine (NORVASC) 5 mg tablet Take 1 tablet by mouth once daily. rosuvastatin (CRESTOR) 10 mg tablet Takes 1 tab every other day. tamsulosin (FLOMAX) 0.4 mg Take 1 capsule by mouth twice daily. finasteride (PROSCAR) 5 mg tablet Take 1 tablet by mouth once daily. rOPINIRole (REQUIP) 0.5 mg tablet Take 1-2 tablets by mouth at bedtime as needed. valsartan (DIOVAN) 80 mg tablet Take 1 tablet by mouth once daily. vit A,C,T-Tjls-Akduzx (OCUVITE PRESERVISION) 7,160 unit- 113 mg-100 unit tab Take 1 tablet by mouthdaily with breakfast. nitroglycerin sublingual (NITROQUICK) 0.4 mg SL tablet Dissolve 1 tablet under the tongue as needed. for chest pain,every 5 min x3 No current facility-administered medications on file prior to visit. Social History Social History Tobacco Use Smoking status: Light Smoker Years: 50.00 Types: Cigarettes Last attempt to quit: 2006 Years since quittin.9 Smokeless tobacco: Never Tobacco comments: 3 cigs daily in 1999's; prior <1/2 PPD x at least 30y Vaping Use Vaping Use: Never used Substance Use Topics Alcohol use: Yes Comment: occasionally Drug use: No EXAM: BP 138/80 Pulse 74 Resp 14 Wt 83.4 kg (183 lb 12.8 oz) BMI 27.95 kg/m General Appearance: Well appearing, alert, in no acute distress, well-hydrated, well nourished.. Lungs: Lungs clear to auscultation. No wheezing, rhonchi, rales.. Heart: RRR without murmur, gallop, or rubs. No ectopy. Health Maintenance List DTAP,TDAP,TD(2 - Td or Tdap) due on 05/10/2021 LDL CHOLESTEROL due on 05/18/2023 DIABETES SCREEN due on 05/18/2025 INFLUENZA Completed ADVANCE DIRECTIVE DISCUSSION Completed DEPRESSION ASSESSMENT Completed SHINGRIX VACCINE Completed COVID-19 VACCINE Completed PNEUMOCOCCAL: 65+ Completed Data reviewed Appointment on 05/22/2022 Component Date Value CRP 05/22/2022 1.1 (A) Sed Rate, W[place]gren 05/22/2022 13 CK 05/22/2022 73 JUHI by EIA, Qual 05/22/2022 Negative TSH 05/22/2022 2.450 Appointment on 05/18/2022 Component Date Value Cholesterol, Total 05/18/2022 138 Triglyceride 05/18/2022 112 HDL Cholesterol 05/18/2022 35 (A) Non HDL Cholesterol 05/18/2022 103 Fasting Time 05/18/2022 14 VLDL Cholesterol 05/18/2022 22 TC:HDL Ratio 05/18/2022 3.94 LDL Cholesterol 05/18/2022 81 LDL:HDL Ratio 05/18/2022 2.31 Protein, Total 05/18/2022 7.0 Albumin 05/18/2022 3.8 (A) Calcium, Total 05/18/2022 9.4 Bilirubin, Total 05/18/2022 1.4 (A) Alkaline Phosphatase 05/18/2022 164 (A) AST 05/18/2022 37 ALT 05/18/2022 21 Glucose 05/18/2022 129 (A) BUN 05/18/2022 18 Creatinine 05/18/2022 1.29 (A) Sodium 05/18/2022 141 Potassium 05/18/2022 4.1 Chloride 05/18/2022 109 (A) CO2 05/18/2022 22 Anion Gap 05/18/2022 10 Estimated Glomerular Jose* 05/18/2022 55 (A) WBC 05/18/2022 6.73 RBC 05/18/2022 4.34 Hemoglobin 05/18/2022 14.2 Hematocrit 05/18/2022 43.0 MCV 05/18/2022 99.1 MCH 05/18/2022 32.7 MCHC 05/18/2022 33.0 RDW-CV 05/18/2022 13.2 Platelet Count 05/18/2022 82 (A) MPV 05/18/2022 11.7 Neut% 05/18/2022 54.6 Abs Neut 05/18/2022 3.68 Lymph% 05/18/2022 23.8 Abs Lymph 05/18/2022 1.60 [place]% 05/18/2022 8.2 Abs [place] 05/18/2022 0.55 Eosin% 05/18/2022 12.2 Abs Eosin 05/18/2022 0.82 (A) Baso% 05/18/2022 0.9 Abs Baso 05/18/2022 0.06 Immature Gran % 05/18/2022 0.3 Abs Immature Gran 05/18/2022 <0.03 NRBC 05/18/2022 0.0 Absolute nRBC 05/18/2022 <0.01 Diff Type 05/18/2022 Auto ASSESSMENT/PLAN: 1. Anxiety with depression - ICD9: 300.4, ICD10: F41.8 (primary diagnosis) Increase Prozac to 40 mg daily Recommend counseling 2. Balance problem - ICD9: 781.99, ICD10: R26.89 Continue to monitor 3. Abdominal aortic aneurysm (AAA) without rupture, unspecified part - ICD9: 441.4, ICD10: I71.40 Monitor Follow up in 3 month. I agree with the Chief Complaint, ROS, and Past Histories independently gathered by the clinical underwriting support manager and the remaining scribed note accurately describes my personal service to the patient. Medical Decision Making: Problems: Moderate: 2+ stable chronic illnesses and 1+ chronic illnesses with change Risk: Moderate: Drug management Medical Decision Making Level: 4 - Moderate Coco Davis MD The documentation for this note was completed by Christal Becerra Ma acting as scribe for Coco Davis MD. June 26, 2022 11:21 AM. Christal Becerra Ma [facility] History of Present illness Narrative* Bren Heart RDMS - 05/31/2022 10:00 AM EST Radiology Service Progress Note PATIENT NAME: Starla Medina DATE OF SERVICE: May 31, 2022 TIME: 2:46 PM PATIENT IDENTITY VERIFICATION COMPLETED USING TWO (2) IDENTIFIERS: Name and Date of confirmedby patient verbally. FALL SCREENING: Has the patient had 2 falls in the last year or 1 fall with injury or currently using an Ambulatory Assistive Device (Walker, Cane, Wheelchair, Crutches, etc.)? No PATIENT GENDER DATA: Male PATIENT RELEVANT IMPLANT DATA REVIEWED: Not Applicable RADIOLOGY DEPARTMENT: Ultrasound PERIPHERAL IV DATA: Not applicable SIGNED BY: Bren Heart RDMS May 31, 2022 2:46 PM [facility] Miscellaneous Notes* Telephone Encounter - Ashley Ham - 05/25/2022 1:10 PM EDT Ultrasound scheduled. Patient states he will call back in to schedule Physical Therapy another time. * Telephone Encounter - Belkys Ngo Ma - 05/24/2022 4:35 PM EDT Pt sent SPOt message back with information below. Made pt aware he needs to contact [facility] Scheduling to setup US and PT appt's. If questions, pt to contact office. Belkys Ngo Ma * Telephone Encounter - Coco Davis MD - 05/24/2022 4:27 PM EDT His back Xray showed degenerative changes, and also mentioned an aortic aneurysm. I would recommenddoing Physical Therapy for the back pain, and I would recommend getting an ultrasound of his aorticto check this out further. His blood work all looked OK; go ahead with the prozac as ordered and see if this helps him to feelbetter. Coco Davis MD * Telephone Encounter - Belkys Ngo Ma - 05/24/2022 11:49 AM EDT See pt message and review XR from 05/22/22. Belkys Ngo Ma [facility] History of Present illness Narrative* Coco Davis MD - 05/22/2022 11:00 AM EDT Chief Complaint Patient presents with: F/U 3 Month HPI Starla Medina is a 82 year old male who presents here today for 3 month follow up. GI/Uro - Pt reports ongoing issues with diarrhea. Was advised by a friend to take Gisela? Takes this once daily, which has seemed to help the diarrhea. Reports color of stool is very light. Is takingProscar 5 mg daily and Flomax 0.4 mg BID. Depression/HANNAH: Currently on no medication. Celexa was changed to Wellbutrin at previous OV. Patient wrote into office with what he believed were side effects of Wellbutrin. Since d/c medication his symptoms have not really improved. Reports that he's had quite a few deaths in the family which makes him sad. Tearful in office. Denies any SI/HI. HTN: Does not check BP at home. Taking Norvasc 5 mg daily and Diovan 80 mg daily. Denies any chest pains, dizziness, or SOB. Lipid: Taking Crestor 10 mg daily, tolerating well. Tries to watch diet and portion sizes. Denies any regular exercise other than yard work. RLS: Controlled on Requip 0.5 mg, 1-2 pills at bedtime prn. Pain - Chronic lower back pain that seems to have gotten worse over the past few weeks. Pain located in his mid back. Not able to sleep in his bed, sleeps in a recliner. Once he gets up and moves around his pain lessons/improves. Pain rated a 7-8/10 described as dull/sore. Has not really done anything for this. Tremor - Continues to have tremor with doing tedious work. Bothersome to him. Derm - Continues to still have rash located on b/l arms. Thought this was related to the Wellbutrin. Balance - Increased balance issues and walking into [place]. Does have to ambulate around holding onto furniture at time. Admits to 2+ falls in the past year. Falls Risk Intake: Patient age 65 or over, unsteady, or was advised to use special equipment to aid ambulation (i.e., cane or walker)? Yes Has the patient had two falls in the past year, or one with injury? Yes Does the patient need to use their hands when pushing up from chair, or hold onto furniture when ambulating at home? Yes Is the patient worried about falling? Yes Please inform patient that answering Yes to one or more of the questions above can increase theirrisk of falling Patient is at greater risk for falls. Falls Instruction: Teaching document below - reviewed and given to patient Past medical history, appointments, medications, allergies reviewed. Previous Medical History PAST MEDICAL HISTORY Diagnosis Date Abnormal stress test small inferior defect 04/2014 CKD (chronic kidney disease), stage III (HCC) Essential hypertension, benign Gout, unspecified rare episodes Hyperlipidemia Hyperplasia of prostate Impaired fasting glucose Nasal congestion Personal history of colonic polyps Sleep apnea declines PSG Thrombocytopenia (HCC) Previous Surgical History PAST SURGICAL HISTORY Procedure Laterality Date BLEPHAROPLASTY, UPPER EYELID Bilateral 10/25/17 Dr. Erick Miner, medically necessary COLONOSCOPY & POLYPECTOMY 08/02/2004 COLONOSCOPY FLX DX W/COLLJ SPEC WHEN PFRMD 12/10/2007 COLONOSCOPY FLX DX W/COLLJ SPEC WHEN PFRMD 01/06/2013 repeat due 2018 COLONOSCOPY GEN ANES N/A 03/23/2021 PAST SURGICAL HISTORY OF pilonidal cyst removed REMOVE CATARACT, INSERT LENS,EX bilateral RPR 1ST INGUN HRNA AGE 5 YRS/> REDUCIBLE Right hernia repair, inguinal VASECTOMY UNI/BI SPX W/POSTOP SEMEN EXAMS Family History FAMILY HISTORY Problem Relation Age of Onset Cancer Mother 55 metastatic Heart Father Coronary Artery Disease Sister CABG Coronary Artery Disease Brother CABG Cancer Brother testicular Patient Allergies ALLERGIES Allergen Reactions Augmentin [Amoxicil* angioedema Lisinopril Cough Current Medications Current Outpatient Medications on File Prior to Visit Medication Sig amLODIPine (NORVASC) 5 mg tablet Take 1 tablet by mouth once daily. rosuvastatin (CRESTOR) 10 mg tablet Takes 1 tab every other day. tamsulosin (FLOMAX) 0.4 mg Take 1 capsule by mouth twice daily. citalopram (CELEXA) 20 mg tablet Take 1 tablet by mouth once daily. finasteride (PROSCAR) 5 mg tablet Take 1 tablet by mouth once daily. rOPINIRole (REQUIP) 0.5 mg tablet Take 1-2 tablets by mouth at bedtime as needed. buPROPion XL (WELLBUTRIN XL) 150 mg 24 hr tablet Take 1 tablet by mouth once daily. valsartan (DIOVAN) 80 mg tablet Take 1 tablet by mouth once daily. vit A,C,I-Qzbn-Qpevak (OCUVITE PRESERVISION) 7,160 unit- 113 mg-100 unit tab Take 1 tablet by mouthdaily with breakfast. nitroglycerin sublingual (NITROQUICK) 0.4 mg SL tablet Dissolve 1 tablet under the tongue as needed. for chest pain,every 5 min x3 No current facility-administered medications on file prior to visit. Social History Social History Tobacco Use Smoking status: Light Smoker Years: 50.00 Types: Cigarettes Last attempt to quit: 2006 Years since quittin.8 Smokeless tobacco: Never Tobacco comments: 3 cigs daily in 1999'; prior <1/2 PPD x at least 30y Vaping Use Vaping Use: Never used Substance Use Topics Alcohol use: Yes Comment: occasionally Drug use: No EXAM: BP 132/80 (BP Site: Left Arm, BP Position: Sitting, BP Cuff Size: Regular Adult) Pulse (!) 56 Resp 16 Wt 82.6 kg (182 lb) BMI 27.67 kg/m General Appearance: Well appearing, alert, in no acute distress, well-hydrated, well nourished.. Skin: Rash located on upper portion of arm. Back: Tenderness to palpitate lower back Lungs: Lungs clear to auscultation. No wheezing, rhonchi, rales.. Heart: RRR without murmur, gallop, or rubs. No ectopy. Health Maintenance List DTAP,TDAP,TD(2 - Td or Tdap) due on 05/10/2021 DEPRESSION ASSESSMENT Never done COVID-19 VACCINE(5 - Booster for Pfizer series) due on 08/06/2021 INFLUENZA(1) due on 03/22/2022 LDL CHOLESTEROL due on 11/08/2022 DIABETES SCREEN due on 02/09/2025 ADVANCE DIRECTIVE DISCUSSION Completed SHINGRIX VACCINE Completed PNEUMOCOCCAL: 65+ Completed Data reviewed Appointment on 05/18/2022 Component Date Value Cholesterol, Total 05/18/2022 138 Triglyceride 05/18/2022 112 HDL Cholesterol 05/18/2022 35 (A) Non HDL Cholesterol 05/18/2022 103 Fasting Time 05/18/2022 14 VLDL Cholesterol 05/18/2022 22 TC:HDL Ratio 05/18/2022 3.94 LDL Cholesterol 05/18/2022 81 LDL:HDL Ratio 05/18/2022 2.31 Protein, Total 05/18/2022 7.0 Albumin 05/18/2022 3.8 (A) Calcium, Total 05/18/2022 9.4 Bilirubin, Total 05/18/2022 1.4 (A) Alkaline Phosphatase 05/18/2022 164 (A) AST 05/18/2022 37 ALT 05/18/2022 21 Glucose 05/18/2022 129 (A) BUN 05/18/2022 18 Creatinine 05/18/2022 1.29 (A) Sodium 05/18/2022 141 Potassium 05/18/2022 4.1 Chloride 05/18/2022 109 (A) CO2 05/18/2022 22 Anion Gap 05/18/2022 10 Estimated Glomerular Jose* 05/18/2022 55 (A) WBC 05/18/2022 6.73 RBC 05/18/2022 4.34 Hemoglobin 05/18/2022 14.2 Hematocrit 05/18/2022 43.0 MCV 05/18/2022 99.1 MCH 05/18/2022 32.7 MCHC 05/18/2022 33.0 RDW-CV 05/18/2022 13.2 Platelet Count 05/18/2022 82 (A) MPV 05/18/2022 11.7 Neut% 05/18/2022 54.6 Abs Neut 05/18/2022 3.68 Lymph% 05/18/2022 23.8 Abs Lymph 05/18/2022 1.60 [place]% 05/18/2022 8.2 Abs [place] 05/18/2022 0.55 Eosin% 05/18/2022 12.2 Abs Eosin 05/18/2022 0.82 (A) Baso% 05/18/2022 0.9 Abs Baso 05/18/2022 0.06 Immature Gran % 05/18/2022 0.3 Abs Immature Gran 05/18/2022 <0.03 NRBC 05/18/2022 0.0 Absolute nRBC 05/18/2022 <0.01 Diff Type 05/18/2022 Auto ASSESSMENT/PLAN: 1. Essential hypertension, benign - ICD9: 401.1, ICD10: I10 (primary diagnosis) - good control - Continue current medication(s) - Recommended regular aerobic exercise. - Recommend home blood pressure monitoring, to bring results in on next visit - Goal of BP <130/80 2. Mixed hyperlipidemia - ICD9: 272.2, ICD10: E78.2 - good control - Continue current medication. 3. Benign prostatic hyperplasia without lower urinary tract symptoms - ICD9: 600.00, ICD10: N40.0 - Stable - Continue current medication regimen. 4. Anxiety with depression - ICD9: 300.4, ICD10: F41.8 - Start Prozac 20 mg - 1 mo f/u 5. Chronic midline low back pain, unspecified whether sciatica present - ICD9: 724.2, 338.29, ICD10: M54.50, G89.29 - XR today 6. RLS (restless legs syndrome) - ICD9: 333.94, ICD10: G25.81 - Continue current medication regimen 7. Essential tremor - ICD9: 333.1, ICD10: G25.0 - Stable 8. Balance problem - ICD9: 781.99, ICD10: R26.89 - Cont to monitor 9. Diarrhea, unspecified type - ICD9: 787.91, ICD10: R19.7 - Check labs 10. Generalized weakness - ICD9: 780.79, ICD10: R53.1 - check labs 11. Fatigue, unspecified type - ICD9: 780.79, ICD10: R53.83 - Check labs 12. H/O: GI bleed - ICD9: V12.79, ICD10: Z87.19 - Stable 13. Muscle pain - ICD9: 729.1, ICD10: M79.10 - Check labs 1 mo f/u. Complete labs/XR today. I agree with the Chief Complaint, ROS, and Past Histories independently gathered by the clinical underwriting support manager and the remaining scribed note accurately describes my personal service to the patient. Medical Decision Making: Problems: Moderate: New problem with uncertain prognosis and 2+ stable chronic illnesses Data: Unique test(s) ordered: 3+ Risk: Moderate: Drug management Medical Decision Making Level: 4 - Moderate Coco Davis MD The documentation for this note was completed by Belkys Ngo Ma acting as scribe for Coco Davis MD. May 22, 2022 11:31 AM. Belkys Ngo Ma documented in this encounter[facility]10-[facility]22 Miscellaneous Notes* Telephone Encounter - Belkys Ngo Ma - 2022 8:20 AM EDT Please see pt message and advise. Belkys Ngo Ma documented in this encounterMary[facility] Hospital08-18-2022 Miscellaneous Notes* Telephone Encounter - Belkys Ngo Ma - 03/08/2022 9:25 AM EDT Last Rx: 03/13/21 #90 w/3. Update pt via [employer] once sent. Last OV: 02/12/22 Next OV: 05/22/22 Belkys Ngo Ma documented in this encounterMary[facility] Hospital07-26-2022 Miscellaneous Notes* Telephone Encounter - Belkys Ngo Ma - 02/13/2022 11:23 AM EDT See pt message regarding Wellbutrin. Belkys Ngo Ma documented in this encounterMarymount Hospital04-25-2022 History of Present illness Narrative* Coco Davis MD - 11/13/2021 11:40 AM EDT Chief Complaint Patient presents with: 6 Month Exam HPI Starla Medina is a 81 year old male who presents here today for a 6 month follow up. Pt here today for a 6 month follow up. He does have an advanced directive. Denies any stomach, bowel or urinary issues. On current regimen of Proscar 5 mg daily and Flomax 0.4 mg BID. He still has some urinary frequency during the day and urgency. He states he only gets up about once a night to urinate. HTN: Denies checking BP at home or having symptoms of chest pain, sob or dizziness. On current regimen of Diovan 80 mg daily and Norvasc 5 mg daily. Lipids/Glucose: Currently on no medications for DM, trying to control with diet, by not drinking pop. Admits his diet and exercise could improve. Pt on current regimen of Crestor 10 mg once daily. RLS: He is not sure if he is taking Requip. The RLS has not been controlled, has a problem with him kicking during the night. Depression/HANNAH: Stable on his current regimen of Celexa 20 mg once daily. Tremor: B/L hand tremor with movement; does not want to take any medications for it at this time. Liver: he had GI evaluation last year by Dr Diop for abnormal scan of liver; he was told he had cirrhotic changes. Low platelets; chronic; has not had further evalutaion Past medical history, appointments, medications, allergies reviewed. Previous Medical History PAST MEDICAL HISTORY Diagnosis Date Abnormal stress test small inferior defect 04/2014 CKD (chronic kidney disease), stage III (HCC) Essential hypertension, benign Gout, unspecified rare episodes Hyperlipidemia Hyperplasia of prostate Impaired fasting glucose Nasal congestion Personal history of colonic polyps Sleep apnea declines PSG Thrombocytopenia (HCC) Previous Surgical History PAST SURGICAL HISTORY Procedure Laterality Date BLEPHAROPLASTY, UPPER EYELID Bilateral 10/25/17 Dr. Erick Miner, medically necessary COLONOSCOPY & POLYPECTOMY 08/02/2004 COLONOSCOPY FLX DX W/COLLJ SPEC WHEN PFRMD 12/10/2007 COLONOSCOPY FLX DX W/COLLJ SPEC WHEN PFRMD 01/06/2013 repeat due 2018 COLONOSCOPY GEN ANES N/A 03/23/2021 PAST SURGICAL HISTORY OF pilonidal cyst removed REMOVE CATARACT, INSERT LENS,EX bilateral RPR 1ST INGUN HRNA AGE 5 YRS/> REDUCIBLE Right hernia repair, inguinal VASECTOMY UNI/BI SPX W/POSTOP SEMEN EXAMS Family History FAMILY HISTORY Problem Relation Age of Onset Cancer Mother 55 metastatic Heart Father Coronary Artery Disease Sister CABG Coronary Artery Disease Brother CABG Cancer Brother testicular Patient Allergies ALLERGIES Allergen Reactions Augmentin [Amoxicil* angioedema Lisinopril Cough Current Medications Current Outpatient Medications on File Prior to Visit Medication Sig finasteride (PROSCAR) 5 mg tablet Take 1 tablet by mouth once daily. finasteride (PROSCAR) 5 mg tablet Take 1 tablet by mouth once daily. citalopram (CELEXA) 20 mg tablet Take 1 tablet by mouth once daily. amLODIPine (NORVASC) 5 mg tablet Take 1 tablet by mouth once daily. tamsulosin (FLOMAX) 0.4 mg Take 1 capsule by mouth twice daily. rosuvastatin (CRESTOR) 10 mg tablet Takes 1 tab every other day. vit A,C,Z-Tzbk-Cmhmwd (OCUVITE PRESERVISION) 7,160 unit- 113 mg-100 unit tab Take 1 tablet by mouthdaily with breakfast. fluticasone (FLONASE) 50 mcg/actuation nasal spray Use 2 Sprays in each nostril once daily. Rinse mouth after use. valsartan (DIOVAN) 80 mg tablet Take 1 tablet by mouth once daily. rOPINIRole (REQUIP) 0.25 mg tablet Take 1-2 tablets by mouth at bedtime as needed. nitroglycerin sublingual (NITROQUICK) 0.4 mg SL tablet Dissolve 1 tablet under the tongue as needed. for chest pain,every 5 min x3 No current facility-administered medications on file prior to visit. Social History Social History Tobacco Use Smoking status: Light Tobacco Smoker Years: 50.00 Types: Cigarettes Last attempt to quit: 2005 Years since quittin.3 Smokeless tobacco: Never Used Tobacco comment: 3 cigs daily in 1999's; prior <1/2 PPD x at least 30y Vaping Use Vaping Use: Never used Substance Use Topics Alcohol use: Yes Comment: occasionally Drug use: No EXAM: BP 138/80 Pulse 68 Resp 16 Wt 84.2 kg (185 lb 9.6 oz) BMI 28.22 kg/m General Appearance: Well appearing, alert, in no acute distress, well-hydrated, well nourished.. Lungs: Lungs clear to auscultation. No wheezing, rhonchi, rales.. Heart: RRR without murmur, gallop, or rubs. No ectopy. Health Maintenance List DTAP,TDAP,TD(2 - Td or Tdap) due on 05/10/2021 ADVANCE DIRECTIVE DISCUSSION Never done LDL CHOLESTEROL due on 02/01/2022 DIABETES SCREEN due on 02/02/2024 INFLUENZA Completed PNEUMOVAX AGE 65 AND OVER WITH 5YR LOOKBACK Completed SHINGRIX VACCINE Completed COVID-19 VACCINE Completed MENINGOCOCCAL CONJUGATE Aged Out Data reviewed Appointment on 11/08/2021 Component Date Value Protein, Total 11/08/2021 7.1 Albumin 11/08/2021 3.8 (A) Calcium, Total 11/08/2021 9.5 Bilirubin, Total 11/08/2021 1.4 (A) Alkaline Phosphatase 11/08/2021 162 (A) AST 11/08/2021 41 (A) ALT 11/08/2021 27 Glucose 11/08/2021 128 (A) BUN 11/08/2021 17 Creatinine 11/08/2021 1.18 Sodium 11/08/2021 140 Potassium 11/08/2021 3.9 Chloride 11/08/2021 107 (A) CO2 11/08/2021 23 Anion Gap 11/08/2021 10 Estimated Glomerular Jose* 11/08/2021 62 Cholesterol, Total 11/08/2021 143 Triglyceride 11/08/2021 117 HDL Cholesterol 11/08/2021 34 (A) Non HDL Cholesterol 11/08/2021 109 Fasting Time 11/08/2021 15 VLDL Cholesterol 11/08/2021 23 TC:HDL Ratio 11/08/2021 4.21 LDL Cholesterol 11/08/2021 86 LDL:HDL Ratio 11/08/2021 2.53 WBC 11/08/2021 5.22 RBC 11/08/2021 4.33 Hemoglobin 11/08/2021 13.7 Hematocrit 11/08/2021 42.1 MCV 11/08/2021 97.2 MCH 11/08/2021 31.6 MCHC 11/08/2021 32.5 RDW-CV 11/08/2021 13.3 Platelet Count 11/08/2021 66 (A) MPV 11/08/2021 11.4 Neut% 11/08/2021 64.6 Abs Neut 11/08/2021 3.37 Lymph% 11/08/2021 19.9 Abs Lymph 11/08/2021 1.04 [place]% 11/08/2021 8.2 Abs [place] 11/08/2021 0.43 Eosin% 11/08/2021 6.3 Abs Eosin 11/08/2021 0.33 Baso% 11/08/2021 0.8 Abs Baso 11/08/2021 0.04 Immature Gran % 11/08/2021 0.2 Abs Immature Gran 11/08/2021 <0.03 NRBC 11/08/2021 0.0 Absolute nRBC 11/08/2021 <0.01 Diff Type 11/08/2021 Auto Hemoglobin A1C 11/08/2021 5.8 (A) Estimated Average Glucose 11/08/2021 120 ASSESSMENT/PLAN: 1. Essential hypertension, benign - ICD9: 401.1, ICD10: I10 (primary diagnosis) - good control - Continue current medication(s) - Recommended regular aerobic exercise. - Recommend home blood pressure monitoring, to bring results in on next visit - Goal of BP <140/90 - COMP METABOLIC PANEL - CBC 2. Mixed hyperlipidemia - ICD9: 272.2, ICD10: E78.2 - good control - Continue current medication. - COMP METABOLIC PANEL 3. Atherosclerosis of coronary artery of [place] heart with angina pectoris, unspecified vessel or lesion type (HCC) - ICD9: 414.01, 413.9, ICD10: I25.119 4. Thrombocytopenia (HCC) - ICD9: 287.5, ICD10: D69.6 Monitor - CBC 5. Impaired fasting glucose - ICD9: 790.21, ICD10: R73.01 - COMP METABOLIC PANEL 6. Elevated LFTs - ICD9: 790.6, ICD10: R79.89 Monitor - COMP METABOLIC PANEL 7. RLS (restless legs syndrome) - ICD9: 333.94, ICD10: G25.81 Will increase Requip dose to 05-1 mg Follow up in 3 months with labs prior I agree with the Chief Complaint, ROS, and Past Histories independently gathered by the clinical underwriting support manager and the remaining scribed note accurately describes my personal service to the patient. Medical Decision Making: Problems: Moderate: 2+ stable chronic illnesses Data: Unique test result(s) reviewed: 3+ Unique test(s) ordered: 3+ Risk: Moderate: Drug management Medical Decision Making Level: 4 - Moderate Coco Davis MD The documentation for this note was completed by Christal Becerra Ma acting as scribe for Coco Davis MD. November 13, 2021 11:44 AM. Christal Becerra Ma documented in this encounterMary[facility]04-25-2022 Nurse Note* Christal Becerra Ma - 11/13/2021 11:39 AM EDT Falls Risk Intake: 1. Patient age 65 or over, unsteady, or was advised to use special equipment to aid ambulation (i.e., cane or walker)? No 2. Has the patient had two falls in the past year, or one with injury? Yes 3. Does the patient need to use their hands when pushing up from chair, or hold onto furniture whenambulating at home? Yes 4. Is the patient worried about falling? No Please inform patient that answering Yes to one or more of the questions above can increase theirrisk of falling Patient is at greater risk for falls. Falls Instruction: Teaching document below - reviewed and given to patient [facility] - Preventing Falls and Maintaining Balance documented in this encounterMary[facility]04-11-2022 Miscellaneous Notes* Telephone Encounter - Belkys Ngo Ma - 10/30/2021 1:02 PM EDT Pt notified of fasting labs that need completed. Belkys Ngo Ma documented in this encounterMary[facility]04-06-2018 History of Past illness Narrative* Problem Noted Date Resolved Date Dermatochalasis of both eyelids 10/25/2017 10/25/2017 documented as of this encounter (statuses as of 10/30/2021) [address] History of Past illness Narrative* Problem Noted Date Resolved Date Dermatochalasis of both eyelids 10/25/2017 10/25/2017 documented as of this encounter (statuses as of 11/13/2021) [address] History of Past illness Narrative* Problem Noted Date Resolved Date Dermatochalasis of both eyelids 10/25/2017 10/25/2017 documented as of this encounter (statuses as of 02/13/2022) [address]2018 History of Past illness Narrative* Problem Noted Date Resolved Date Dermatochalasis of both eyelids 10/25/2017 10/25/2017 documented as of this encounter (statuses as of 03/08/2022) [address]2018 History of Past illness Narrative* Problem Noted Date Resolved Date Dermatochalasis of both eyelids 10/25/2017 10/25/2017 documented as of this encounter (statuses as of 03/27/2022) [address]2018 History of Past illness Narrative* Problem Noted Date Resolved Date Dermatochalasis of both eyelids 10/25/2017 10/25/2017 documented as of this encounter (statuses as of 2022) [address]2018 History of Past illness Narrative* Problem Noted Date Resolved Date Dermatochalasis of both eyelids 10/25/2017 10/25/2017 documented as of this encounter (statuses as of 05/22/2022) [address]2018 History of Past illness Narrative* Problem Noted Date Resolved Date Dermatochalasis of both eyelids 10/25/2017 10/25/2017 documented as of this encounter (statuses as of 05/25/2022) [address]2018 History of Past illness Narrative* Problem Noted Date Resolved Date Dermatochalasis of both eyelids 10/25/2017 10/25/2017 documented as of this encounter (statuses as of 06/26/2022) [address]2018 History of Past illness Narrative* Problem Noted Date Resolved Date Dermatochalasis of both eyelids 10/25/2017 10/25/2017 documented as of this encounter (statuses as of 09/28/2022) [address]2018 History of Past illness Narrative* Problem Noted Date Resolved Date Dermatochalasis of both eyelids 10/25/2017 10/25/2017 documented as of this encounter (statuses as of 10/01/2022) [address]2018 History of Past illness Narrative* Problem Noted Date Resolved Date Dermatochalasis of both eyelids 10/25/2017 10/25/2017 documented as of this encounter (statuses as of 12/04/2022) [address]2018 History of Past illness Narrative* Problem Noted Date Resolved Date Dermatochalasis of both eyelids 10/25/2017 10/25/2017 documented as of this encounter (statuses as of 12/19/2022) [address]2018 History of Past illness Narrative* Problem Noted Date Resolved Date Dermatochalasis of both eyelids 10/25/2017 10/25/2017 documented as of this encounter (statuses as of 01/08/2023) [address]2018 History of Past illness Narrative* Problem Noted Date Diagnosed Date Resolved Date Dermatochalasis of both eyelids 10/25/2017 10/25/2017 Chronic kidney disease, stage III (moderate) 8 02/12/2023 Overview: Calc GFR = 48 ml/min, 608. documented as of this encounter (statuses as of 05/16/2023) [address] History of Past illness Narrative* Problem Noted Date Diagnosed Date Resolved Date Dermatochalasis of both eyelids 10/25/2017 10/25/2017 Chronic kidney disease, stage III (moderate) 8 02/12/2023 Overview: Calc GFR = 48 ml/min, 6/08. documented as of this encounter (statuses as of 05/26/2023) [address] History of Past illness Narrative* Problem Noted Date Diagnosed Date Resolved Date Dermatochalasis of both eyelids 10/25/2017 10/25/2017 Chronic kidney disease, stage III (moderate) 8 02/12/2023 Overview: Calc GFR = 48 ml/min, 12/27. documented as of this encounter (statuses as of 05/26/2023) [facility] of [facility] illness Narrative* Problem Noted Date Diagnosed Date Resolved Date Dermatochalasis of both eyelids 10/25/2017 10/25/2017 Chronic kidney disease, stage III (moderate) 8 02/12/2023 Overview: Calc GFR = 48 ml/min, 12/27. documented as of this encounter (statuses as of 05/26/2023) [facility] Diagnosis Essential hypertension, benign- Primary Mixed hyperlipidemia Atherosclerosis of coronary artery of [place] heart with angina pectoris, unspecified vessel or lesion type (HCC) Thrombocytopenia (HCC) Thrombocytopenia, unspecified Impaired fasting glucose Elevated LFTs Other abnormal blood chemistry RLS (restless legs syndrome) Restless legs syndrome (RLS) documented in this encounter [facility]* Diagnosis Essential hypertension, benign [facility] encounter [facility]* Diagnosis Mixed hyperlipidemia BPH (benign prostatic hyperplasia) Unspecified hyperplasia of prostate without urinary obstruction and other lower urinary tract symptoms (LUTS) documented [facility] this encounter [facility]* Diagnosis Essential hypertension, benign- Primary Mixed hyperlipidemia Benign prostatic hyperplasia without lower urinary tract symptoms Anxiety with depression Chronic midline low back pain, unspecified whether sciatica present RLS (restless legs syndrome) Restless legs syndrome (RLS) Essential tremor Essential and other specified forms of tremor Balance problem Other symptoms involving nervous and musculoskeletal systems Diarrhea, unspecified type Generalized weakness Other malaise and fatigue Fatigue, unspecified type H/O: GI bleed Personal history of other diseases of digestive system Muscle pain Mylagia and myositis, unspecified documented [facility] this encounter [facility]* Diagnosis Abdominal aortic aneurysm (AAA) without rupture, unspecified part- Primary Chronic midline low back pain, unspecified whether sciatica present [facility] encounter [facility]* Diagnosis Anxiety with depression- Primary Balance problem Other symptoms involving nervous and musculoskeletal systems Abdominal aortic aneurysm (AAA) without rupture, unspecified part Essential hypertension, benign Stage 3 chronic kidney disease, unspecified whether stage 3a or 3b CKD (HCC) Thrombocytopenia (HCC) Thrombocytopenia, unspecified [facility]* Diagnosis Essential hypertension, benign- Primary Anxiety with depression Thrombocytopenia (HCC) Thrombocytopenia, unspecified Mixed hyperlipidemia Elevated LFTs Other abnormal blood chemistry Cirrhosis, 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 documented [facility] encounter [facility]* Diagnosis Essential hypertension, benign BPH (benign prostatic hyperplasia) Unspecified hyperplasia of prostate without urinary obstruction and other lower urinary tract symptoms (LUTS) Mixed hyperlipidemia [facility]* Diagnosis Encounter for staple removal- Primary Encounter for removal of sutures documented [facility]* Diagnosis Essential hypertension, benign- Primary Mixed hyperlipidemia Anxiety with depression Benign prostatic hyperplasia without lower urinary tract symptoms Impaired fasting glucose Abdominal aortic aneurysm (AAA) without rupture, unspecified part (HCC) Atherosclerosis of coronary artery of [place] heart with angina pectoris, unspecified vessel or lesion type (HCC) [facility]* Diagnosis Essential hypertension, benign- Primary Need for vaccination Need for prophylactic vaccination and inoculation against unspecified single disease Mixed hyperlipidemia Benign prostatic hyperplasia without lower urinary tract symptoms Anxiety with depression Need for influenza vaccination Need for prophylactic vaccination and inoculation against influenza Elevated LFTs Other abnormal blood chemistry Cirrhosis, 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 Platelets decreased (HCC) Thrombocytopenia, unspecified [facility] encounter [facility]* Diagnosis Elevated LFTs Other abnormal blood chemistry Cirrhosis, 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 documented [facility] this encounter [facility]* Diagnosis Abdominal aortic aneurysm (AAA) without rupture, unspecified part (HCC) documented in this encounter [facility] for referral (narrative)* Diagnostic Procedure Only (Routine) - Closed Specialty Diagnoses / Procedures Referred By Contac t Referred To Contact XR IMAGING Diagnoses Chronic midline low back pain, unspecified whether sciatica present Procedures XR LUMBAR GENERAL 3V AP/LAT/L5-S1 RADEX SPINE LUMBOSACRAL 2/3 VIEWS Coco Davis MD [address] [place] [address] Xr Imaging Referral ID Status Reason Start Date Expiration Date V isits Requested Visits Authorized [id number] Closed Auto-Generate d Referral 05/22/2022 06/21/2023 1 1 [facility] Diagnostic Procedure Only (Routine) - Closed Specialty Diagnoses / Procedures Referred By Contac t Referred To Contact US IMAGING Diagnoses Abdominal aortic aneurysm (AAA) without rupture, unspecified part (HCC) Procedures US SCREENING FOR AAA (2017) US ABDOMINAL AORTA REAL TIME SCREEN STUDY AAA Coco Davis MD [address] [place] [address] [place] [id number] Referral ID Status Reason Start Date Expiration Date V isits Requested Visits Authorized [id number] Closed Auto-Generate d Referral 05/24/2022 06/23/2023 1 1 [facility] Summary Purpose Family History No Family History Records FoundNo Family History Records Found Advance Directives No Advanced Directives Records FoundDocuments on File Type Date Recorded Patient Shrimp Header Expl anation Advance Directive(s) 10/25/2017 11:37 AM Reason for Referral Specialty Diagnoses / Procedures Referred By Contac t Referred To Contact [facility] Diagnoses Chronic midline low back pain, unspecified whether sciatica present Procedures CONSULT TO PHYSICAL THERAPY PHYSICAL THERAPY EVALUATION HIGH COMPLEX 45 MINS Coco Davis MD [address] [place] [address] [facility] [place] [address] [place] [address] Referral ID Status Reason Start Date Expiration Date Visits Requested Visits Authorized [id number] Authorized PCP Requested Referral Auto-Generate d Referral 05/24/2022 05/24/2023 99 99 Specialty Diagnoses / Procedures Referred By Contac t Referred To Contact US IMAGING Diagnoses Abdominal aortic aneurysm (AAA) without rupture, unspecified part Procedures US SCREENING FOR AAA (2017) US ABDOMINAL AORTA REAL TIME SCREEN STUDY AAA Coco Davis MD [address] [place] [address] [facility] Referral ID Status Reason Start Date Expiration Date Visits Requested Visits Authorized [id number] Authorized Auto-Generat ed Referral 05/24/2022 06/23/2023 1 1 Specialty Diagnoses / Procedures Referred By Contac t Referred To Contact CT IMAGING Diagnoses Elevated LFTs Cirrhosis, nonalcoholic (HCC) Procedures CT ABD/PEL WO IVCON CT ABD & PELVIS W/O CONTRAST Coco Davis MD [address] [place] [address] [address] Imaging Referral ID Status Reason Start Date Expiration Date Visits Requested Visits Authorized [id number] Authorized Auto-Generat ed Referral 10/01/2022 10/31/2023 1 1 Specialty Diagnoses / Procedures Referred By Contac t Referred To Contact Gastroenterology Diagnoses Elevated LFTs Cirrhosis, nonalcoholic (HCC) Procedures CONSULT TO GASTROENTEROLOGY OFFICE/OUTPATIENT [facility] MDM 60-74 MINUTES Coco Davis MD [address] [place] [address] Referral ID Status Reason Start Date Expiration Date Visits Requested Visits Authorized [id number] Authorized PCP Requested Referral 05/15/2024 1 1 Specialty Diagnoses / Procedures Referred By Contac t Referred To Contact CT IMAGING Diagnoses Elevated LFTs Cirrhosis, nonalcoholic (HCC) Procedures CT ABD/PEL WO IVCON CT ABD & PELVIS W/O CONTRAST Coco Davis MD [address] [place] [address] [place] [id number] Referral ID Status Reason Start Date Expiration Date V isits Requested Visits Authorized [id number] Closed Auto-Generate d Referral 10/01/2022 10/31/2023 1 1 Additional Source Comments (unrecognized sect ion and content) No Status Records FoundNo Status Records Found INFORMATION SOURCE (unrecogn ized section and content) DATE CREATED AUTHOR AUTHOR'S ORGANIZ ATION 07/12/2023 [facility] Source Comments (unrecognize d section and content) In the event this informatio n is protected by the Federal Confidentiality of Alcohol and Drug Abuse Patient Records regulations: The Federal rules restrict any use of the information to criminally investigate or prosecute any alcohol or drug abuse patient.[facility] Hospital[facility] the event this information is protected by the Federal Confidentiality of Alcohol and Drug Abuse Patient Records regulations: The Federal rules restrict any use of the information to criminally investigate or prosecute any alcohol or drug abuse patient.[facility] HospitalIn the event this information is protected by the Federal Confidentiality of Alcohol and Drug Abuse Patient Records regulations: The Federal rules restrict any use of the information to criminally investigate or prosecute any alcohol or drug abuse patient.[facility] HospitalIn the event this information is protected by the Federal Confidentiality of Alcohol and Drug Abuse Patient Records regulations: The Federal rules restrict any use of the information to criminally investigate or prosecute any alcohol or drug abuse patient.[facility] HospitalIn the event this information is protected by the Federal Confidentiality of Alcohol and Drug Abuse Patient Records regulations: The Federal rules restrict any use of the information to criminally investigate or prosecute any alcohol or drug abuse patient.[facility] HospitalIn the event this information is protected by the Federal Confidentiality of Alcohol and Drug Abuse Patient Records regulations: The Federal rules restrict any use of the information to criminally investigate or prosecute any alcohol or drug abuse patient.[facility] HospitalIn the event this information is protected by the Federal Confidentiality of Alcohol and Drug Abuse Patient Records regulations: The Federal rules restrict any use of the information to criminally investigate or prosecute any alcohol or drug abuse patient.[facility] HospitalIn the event this information is protected by the Federal Confidentiality of Alcohol and Drug Abuse Patient Records regulations: The Federal rules restrict any use of the information to criminally investigate or prosecute any alcohol or drug abuse patient.[facility] HospitalIn the event this information is protected by the Federal Confidentiality of Alcohol and Drug Abuse Patient Records regulations: The Federal rules restrict any use of the information to criminally investigate or prosecute any alcohol or drug abuse patient.[facility] HospitalIn the event this information is protected by the Federal Confidentiality of Alcohol and Drug Abuse Patient Records regulations: The Federal rules restrict any use of the information to criminally investigate or prosecute any alcohol or drug abuse patient.[facility] HospitalIn the event this information is protected by the Federal Confidentiality of Alcohol and Drug Abuse Patient Records regulations: The Federal rules restrict any use of the information to criminally investigate or prosecute any alcohol or drug abuse patient.[facility] HospitalIn the event this information is protected by the Federal Confidentiality of Alcohol and Drug Abuse Patient Records regulations: The Federal rules restrict any use of the information to criminally investigate or prosecute any alcohol or drug abuse patient.[facility] HospitalIn the event this information is protected by the Federal Confidentiality of Alcohol and Drug Abuse Patient Records regulations: The Federal rules restrict any use of the information to criminally investigate or prosecute any alcohol or drug abuse patient.[facility] HospitalIn the event this information is protected by the Federal Confidentiality of Alcohol and Drug Abuse Patient Records regulations: The Federal rules restrict any use of the information to criminally investigate or prosecute any alcohol or drug abuse patient.[facility] HospitalIn the event this information is protected by the Federal Confidentiality of Alcohol and Drug Abuse Patient Records regulations: The Federal rules restrict any use of the information to criminally investigate or prosecute any alcohol or drug abuse patient.[facility] HospitalIn the event this information is protected by the Federal Confidentiality of Alcohol and Drug Abuse Patient Records regulations: The Federal rules restrict any use of the information to criminally investigate or prosecute any alcohol or drug abuse patient.[facility] HospitalIn the event this information is protected by the Federal Confidentiality of Alcohol and Drug Abuse Patient Records regulations: The Federal rules restrict any use of the information to criminally investigate or prosecute any alcohol or drug abuse patient.[facility] HospitalIn the event this information is protected by the Federal Confidentiality of Alcohol and Drug Abuse Patient Records regulations: The Federal rules restrict any use of the information to criminally investigate or prosecute any alcohol or drug abuse patient.[facility] Care Teams (unrecognized sec tion and content) Electronic Assembly Relationship Specialty Start Date End Date Coco Davis MD [address] [place], [place] [id number] PCP - General Family Practice 04/18/15 Electronic Assembly Relationship Specialty Start Date End Date Coco Davis MD [address] [place] [address] PCP - General Family Practice 04/18/15 Electronic Assembly Relationship Specialty Start Date End Date Coco Davis MD [address] [place] [address] PCP - General Family Practice 04/18/15 Electronic Assembly Relationship Specialty Start Date End Date Coco Davis MD [address] [place] [address] PCP - General Family Practice 04/18/15 Electronic Assembly Relationship Specialty Start Date End Date Coco Davis MD [address] [facility] [place] [address] PCP - General Family Medicine 04/18/15 Electronic Assembly Relationship Specialty Start Date End Date Coco Davis MD [address] [facility] [place] [address] PCP - General Family Medicine 04/18/15 Electronic Assembly Relationship Specialty Start Date End Date Coco Davis MD [address] [facility] [place] [address] PCP - General Family Medicine 04/18/15 Electronic Assembly Relationship Specialty Start Date End Date Coco Davis MD [address] [facility] [place] [address] PCP - General Family Medicine 04/18/15 Electronic Assembly Relationship Specialty Start Date End Date Coco Davis MD [address] [facility] [place] [address] PCP - General Family Medicine 04/18/15 Electronic Assembly Relationship Specialty Start Date End Date Coco Davis MD [address] [facility] [place] [address] PCP - General Family Medicine 04/18/15 Electronic Assembly Relationship Specialty Start Date End Date Coco Davis MD [address] [facility] [place] [address] PCP - General Family Medicine 04/18/15 Electronic Assembly Relationship Specialty Start Date End Date Coco Davis MD [address] [facility] [place] [address] PCP - General Family Medicine 04/18/15 Electronic Assembly Relationship Specialty Start Date End Date Coco Davis MD [address] [place], [place] [address] PCP - General Family Medicine 04/18/15 Electronic Assembly Relationship Specialty Start Date End Date Coco Davis MD [address] [place], [place] [id number] PCP - General Family Medicine 04/18/15 Electronic Assembly Relationship Specialty Start Date End Date Coco Davis MD [address] [place], [place] [id number] PCP - General [facility] Medicine 04/18/15 Electronic Assembly Relationship Specialty Start Date End Date Coco Davis MD [address] [place], [place] [id number] PCP - General Family Medicine 04/18/15 Reason for Visit (unrecogniz ed section and content) Specialty Diagnoses / Procedures Referred By Contac t Referred To Contact CT IMAGING Diagnoses Elevated LFTs Cirrhosis, nonalcoholic (HCC) Procedures CT ABD/PEL WO IVCON CT ABD & PELVIS W/O CONTRAST Coco Davis MD [address] [place] [address] [place] [id number] Referral ID Status Reason Start Date Expiration Date V isits Requested Visits Authorized [id number] Closed Auto-Generate d Referral 10/01/2022 10/31/2023 1 1 Reason Comments 6 Month Exam Reason Onset Date Comments Refill Request 03/27/2022 Reason Comments F/U 3 Month Reason Comments Follow Up 1 month Reason Comments Orders Reason Onset Date Comments Refill Request 12/03/2022 Reason Comments Suture Removal Remove 4 mehran fro m head Reason Comments F/U 3 Month Reason Onset Date Comments F/U 3 Month Immunizations 05/16/2023 Flu vaccination Reason Comments Radiology US Specialty Diagnoses / Procedures Referred By Contac t Referred To Contact US IMAGING Diagnoses Abdominal aortic aneurysm (AAA) without rupture, unspecified part (HCC) Procedures US SCREENING FOR AAA (2017) US ABDOMINAL AORTA REAL TIME SCREEN STUDY AAA Coco Davis MD [address] [place] [address] [place] [id number] Referral ID Status Reason Start Date Expiration Date V isits Requested Visits Authorized [id number] Closed Auto-Generate d Referral 05/24/2022 06/23/2023 1 1 FOR RECORDS PERTAINING TO PATIENTS WHO ARE OR HAVE BEEN ENROLLED IN A CHEMICAL DEPENDENCY/SUBSTANCEABUSE PROGRAM, SOME INFORMATION MAY BE OMITTED. This clinical summary was aggregated from multiple sources. Caution should be exercised in using it in the provision of clinical care. This summary normalizes information from multiple sources, and as a consequence, information in this document may materially change the coding, format and clinical context of patient data. In addition, data may be omitted in some cases. CLINICAL DECISIONS SHOULD BE BASED ON THE PRIMARY CLINICAL RECORDS. [employer] provides no warranty or guarantee of the accuracy or completeness of information in this document.
[2023-08-01 18:26] LABS: Lactic Acid 1.5 mmol/L (0.4-1.9)
[2023-08-01 18:27] LABS: ALB/GLOB Ratio 0.6 RATIO (0.9-2.4); AST(SGOT) 42 U/L (15-37); Alanine Aminotransfer ALT/SGPT 49 U/L (16-61); Albumin, Serum 3.2 g/dL (3.2-5.0); Alkaline Phosphatase 233 U/L (45-117); Anion Gap 8 (5-15); BUN 120 mg/dL (7-18); BUN/Creat Ratio 32.1 RATIO (10-20); Calcium,Total 10.6 mg/dL (8.5-10.1); Chloride 116 mmol/L (98-107); Creatinine, Serum 3.74 mg/dL (0.70-1.30); EST Glomerular Filtration Rate 17 mL/min (>60); Est Glom Filt Rate - Afr Amer 20 mL/min (>60); Estimated Creatinine Clearance 14.22 ml/min; Globulin 5.2 g/dL (2.2-4.2); Glucose 90 mg/dL (74-106); Potassium 7.3 mmol/L (3.5-5.1); Protein, Total 8.4 g/dL (6.4-8.2); Sodium Level 138 mmol/L (136-145); Troponin-I HS 22 pg/mL (3.0-78.0)
[2023-08-01 18:40] LABS: Bacteria 0 SEEN /hpf (None Seen); Mucous, Urine 0 SEEN /hpf (<or=2+); Red Blood Cells-Urine 0 SEEN /hpf (0-5); White Blood Cells 0 SEEN /hpf (0-5)
[2023-08-01 18:49] LABS: Color, Urine Yellow (Yellow); Glucose, Dipstick Normal (Normal); Ketone-Dipstick Negative (Negative); Leukocyte Esterase-Dipstick Negative /ul (Negative); Nitrite-Dipstick Negative (Negative); Occult Blood-Urine Negative /ul (Negative); Protein-Dipstick Negative (Negative); Urine Bilirubin Dipstick Negative (Negative); Urine Clarity Clear (Clear); Urine Urobilinogen Normal (Normal)
[2023-08-01 18:54] LABS: Squamous Epithelial Cells - UA 0-5 SEEN /hpf (0-5)
[2023-08-01] MEDS: Albuterol 2.5 MG/3 ML VIAL.NEB. 10 MG INHALATION (19:37)
--- NOTE | 2023-08-01 19:43 | PCM.HP.STD ---
HPI - General General Date of Admission: 08/01/23 Date of Service: 08/01/23 Chief Complaint: weakness HPI Narrative STARLA GALE, is a 83 M with a PMH as outlined who presents via the ED on 08/01/2023 with a complaint of weakness. He has a history of cirrhosis and esophageal varices. He was recently placed on diuretics by his associate producer due to lower extremity edema. He says he lost about 30 pounds over the last 3 weeks. He came to the ED with complaints of generalized weakness and low blood pressure. He denied any abdominal pain, nausea, vomiting or any other symptoms. Review of systems is otherwise negative. Vitals in the ED are BP of 107/63, NJ of 57, RR of 22 and he was saturating at 96% on room air. CBC showed hb of 14.5, wbc of 10.2, platelets of 119; INR was 1.3. Chemistry showed sodium of 138 with potassium of 7.3 and bicarb of 14. BUN is 120 and bicarb is 14, with anion gap of 8. eGFR is 17. Total bilirubin is 1.2 and calcium is 10.6. Urinalysis was unremarkable. CXR showed no acute cardiopulmonary process. He is being admitted to be managed for KYAW on CKD due to dehydration from diuretic use, with concomitant hyperkalemia. [facility] Medical History Anemia due to gastrointestinal blood loss Bleeding external hemorrhoids BPH (benign prostatic hyperplasia) Bruising Depression Former smoker High cholesterol History of COVID-19 History of diverticulitis History of stress test Hx of fracture of rib Hypertension Macular degeneration Pilonidal cyst Prostate disease Restless legs Wears dentures Home Medications amlodipine 5 mg tablet 5 mg PO DAILY HTN 03/09/21 [History Last Taken 03/23/21] finasteride 5 mg tablet 5 mg PO DAILY BPH 03/09/21 [History Last Taken 03/09/21] ropinirole 0.25 mg tablet 0.25 mg PO PRN PRN restless legs 03/09/21 [History Last Taken Unknown] rosuvastatin 10 mg tablet 10 mg PO QODAY cholesterol 03/09/21 [History Last Taken 03/08/21] tamsulosin 0.4 mg capsule 0.4 mg PO BID BPH 03/09/21 [History Last Taken 03/09/21] valsartan 80 mg tablet 80 mg PO DAILY HTN 03/09/21 [History Last Taken 03/09/21] benzonatate 100 mg capsule 100 mg PO TID 08/01/23 [History Last Taken Unknown] escitalopram oxalate 5 mg tablet 5 mg PO DAILY 08/01/23 [History Last Taken Unknown] furosemide 40 mg tablet 40 mg PO DAILY 08/01/23 [History Last Taken Unknown] nitroglycerin 0.4 mg sublingual tablet 0.4 mg sublingual Q5M 08/01/23 [History Last Taken Unknown] spironolactone 50 mg tablet 50 mg PO DAILY 08/01/23 [History Last Taken Unknown] Allergy/AdvReac Type Severity Reaction Status Date / Time amoxicillin [From Augmentin] Allergy Other Verified 08/01/23 16:54 clavulanic acid Allergy Other Verified 08/01/23 16:54 [From Augmentin] lisinopril AdvReac Other Verified 08/01/23 16:54 Family History Mother Cancer Sister Cancer Other Heart disease Surgical History History of cataract surgery History of excision of pilonidal cyst History of herniorrhaphy Social History household members: none Smoking Status: Former smoker alcohol intake: current alcohol intake frequency: other substance use type: does not use ROS Constitutional Constitutional: Reports fatigue, malaise and weakness; Denies anorexia, chills or fever(s) Eyes Eyes: Denies change in vision ENT HEENT: Denies dysphagia, headache(s) or sore throat Cardiovascular Cardiovascular: Denies chest pain, dyspnea on exertion, lightheadedness, orthopnea, palpitations, paroxysmal nocturnal dyspnea, rapid heart rate or syncope Respiratory/Chest Respiratory/Chest: Denies cough, dyspnea, productive cough, shortness of breath at rest or shortness of breath with exertion Gastrointestinal Gastrointestinal: Denies abdominal pain, diarrhea, nausea or vomiting Genitourinary Genitourinary: Denies burning urination or dysuria Neurologic Neurologic: Denies confusion, dizziness, focal weakness, headache(s), seizures or syncope Psychiatric Psychiatric: Denies anxiety Endocrine Endocrinology: Denies change in body appearance Hematologic/Lymphatic Hematologic/Lymphatic: Denies anemia Vital Signs Vital Signs Vital Signs: 08/01/23 16:52 08/01/23 17:13 08/01/23 17:15 Temperature 96.8 F L Temperature Source Temporal Pulse Rate 75 59 L Respiratory Rate 16 17 Respiratory Effort Short of Breath Respiratory Pattern Tachypnea Blood Pressure 83/36 L 90/51 L Blood Pressure Mean 51 64 Pulse Ox 98 97 Oxygen Delivery Method Room Air Room Air 08/01/23 17:44 08/01/23 18:49 Temperature Temperature Source Pulse Rate 67 Respiratory Rate 20 H Respiratory Effort Respiratory Pattern Blood Pressure 100/72 Blood Pressure Mean 81 Pulse Ox 98 Oxygen Delivery Method Room Air Room Air Weight Weight: 155 lb Body Mass Index (BMI) 23.6 Physical Exam Const alert, oriented x3 and no apparent distress General Appearance: cooperative HEENT normocephalic, head/scalp atraumatic and hearing grossly normal bilaterally Mouth: oral and palatal mucosa normal Eyes PERRL Neck no lymphadenopathy and supple Resp Resp Narrative: mildly diminished breath sounds bibasally, no wheezes or crackles. Cardio regular rate, regular rhythm, S1 normal heart sound and S2 normal heart sound GI normal to inspection, nondistended, normoactive bowel sounds, soft to palpation and non-tender Extremity normal to inspection and full ROM Extremity Narrative: bilateral 2+ pedal edema Neuro oriented x3, CN's II-XII intact bilaterally, moves all extremities and no focal motor deficits Sensorium / Orientation: awake and alert Motor Exam: strength 5/5 throughout Psych affect normal Results Lab / Micro Data 08/01/23 17:32 08/01/23 23:20 Labs: Laboratory Results - last 24 hr 08/01/23 17:32: WBC 10.2, RBC 4.39 L, Hgb 14.5, Hct 43.9, MCV 100.0 H, MCH 33.0 H, MCHC 33.0, RDW Std Deviation 50.8 H, RDW Coeff of Randi 13.9, Plt Count 119 L, MPV 10.3, Immature Gran % (Auto) 0.600, Neut % (Auto) 75.1 H, Lymph % (Auto) 14.9 L, Stafford % (Auto) 7.9, Eos % (Auto) 1.0, Baso % (Auto) 0.5, Absolute Neuts (auto) 7.7, Absolute Lymphs (auto) 1.52, Nucleated RBC % 0, PT 16.5 H, INR 1.3, APTT 33.4, Sodium 138, Potassium 7.3 H*, Chloride 116 H, Carbon Dioxide 14.0 L, Anion Gap 8, BUN 120 H*, Creatinine 3.74 H, Estim Creat Clear Calc 14.22, Est GFR (MDRD) Af Amer 20 L, Est GFR (MDRD) Non-Af 17 L, BUN/Creatinine Ratio 32.1 H, Glucose 90, Calcium 10.6 H, Total Bilirubin 1.20 H, AST 42 H, ALT 49, Alkaline Phosphatase 233 H, Troponin I High Sens 22, Total Protein 8.4 H, Albumin 3.2, Globulin 5.2 H, Albumin/Globulin Ratio 0.6 L 08/01/23 17:45: Lactic Acid 1.5, Blood Type A POSITIVE, Antibody Screen NEGATIVE 08/01/23 18:30: Urine Color Yellow, Urine Clarity Clear, Urine pH 5.0, Ur Specific [place] 1.010, Urine Protein Negative, Urine Glucose (UA) Normal, Urine Ketones Negative, Urine Occult Blood Negative, Urine Nitrite Negative, Urine Bilirubin Negative, Urine Urobilinogen Normal, Ur Leukocyte Esterase Negative, Urine RBC 0 SEEN, Urine WBC 0 SEEN, Ur Squamous Epith Cells 0-5 SEEN, Urine Bacteria 0 SEEN, Urine Mucus 0 SEEN Rhythm Strip Rhythm Strip: Sinus Rhythm Rate: 52 Ectopy: None Imagaing Radiology Impression Chest X-Ray 08/01/23 17:55 IMPRESSION: No acute cardiopulmonary disease. Electronically Signed: Rogelio Awad MD at 18:08 EST , Assessment & Plan Assessment/Plan (1) Acute hyperkalemia: (2) Acute kidney failure: (3) Acute dehydration: (4) Acute hypotension: (5) History of cirrhosis: PLAN: Plan #KYAW with hyperkalemia admit to ICU due to potassium of 7.3 likely due to diuretic use. He was started on lasix by his associate producer due to lower extremity edema Cr is 3.74 on admission, with baseline Cr of 1.2 potassium is 7.3. admit to ICU. Hold lasix and all nephrotoxic meds start hydration with iVF NS @ 150cc/hr give potassium depleting cocktail give kayexalate recheck BMP q4hrly EKG showed no hyperkalemic changes if Cr doesnt improve with hydration, check FeUrea and renal USG insert Briseno catheter and trend Cr #Non anion gap metabolic acidosis likely due to KYAW. should improve as KYAW resolves #Hypertension on amlodipine. Hold lisinopril and lasix as well as spironolactone and valsartan #Cirrhosis hold lasix and spironolactone due to KYAW and hyperkalemia #BPH: on flomax #Hyperlipidemia: on statin DVT prophylaxis: heparin Code status: full code Patient, and daughter counseled extensively about different types of CODE STATUS including full code, DNR CCA and DNR CCA. Patient elects to be full code. Total [id number] time 17 minutes. Total time spent on evaluation and management of patient, reviewing chart and specialist notes, discussing plan with patient and his and daughter, discussion with nursing and ancillary staff as well as documentation: 85 mins Total critical care time spent: 85 mins Charges/Coding Visit Charges Inpatient E&M: 06725 Init Hosp L3 Procedures Hospitalists Procedures: 20453 Critical Care 1st Hr (88783: advanced care plan)
--- OUTSIDE RECORDS SUMMARY | 2023-08-01 19:51 | XMS RPT_ITS | CCD ---
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 05-16-2023 10:10-0400 Diastolic blood pressure 72 mm[Hg] Coco Davis MD Work Phone: [facility] 05-16-2023 10:10-0400 Heart rate 66 /min Coco Davis MD Work Phone: [facility] 05-16-2023 10:10-0400 Respiratory rate 16 /min Coco Davis MD Work Phone: [facility] 05-16-2023 10:10-0400 Systolic blood pressure 122 mm[Hg] Coco Davis MD Work Phone: [facility] 01-08-2023 10:32-0400 Body weight 84.14 kg Coco Davis MD Work Phone: [facility] 01-08-2023 10:32-0400 Diastolic blood pressure 80 mm[Hg] Coco Davis MD Work Phone: [facility] 01-08-2023 10:32-0400 Heart rate 70 /min Coco Davis MD Work Phone: [facility] 01-08-2023 10:32-0400 Respiratory rate 16 /min Coco Davis MD Work Phone: [facility] 01-08-2023 10:32-0400 Systolic blood pressure 120 mm[Hg] Coco Davis MD Work Phone: [facility] 12-18-2022 13:31-0400 Body temperature 97.11 [degF] Kenroy Pendlebury FRUIT STUFFER.GRAINER MACHINE Work Phone: [facility] 12-18-2022 13:31-0400 Body weight 84.28 kg Kenroy Pendlebury FRUIT STUFFER.GRAINER MACHINE Work Phone: [facility] 12-18-2022 13:31-0400 Diastolic blood pressure 80 mm[Hg] Kenroy Pendlebury FRUIT STUFFER.GRAINER MACHINE Work Phone: [facility] 12-18-2022 13:31-0400 Heart rate 63 /min Kenroy Pendlebury FRUIT STUFFER.GRAINER MACHINE Work Phone: [facility] 12-18-2022 13:31-0400 Respiratory rate 18 /min Kenroy Pendlebury FRUIT STUFFER.GRAINER MACHINE Work Phone: [facility] 12-18-2022 13:31-0400 SaO2% (BldA) [Mass fraction] 96 % Kenroy Simon FRUIT STUFFER.GRAINER MACHINE Work Phone: [facility] 12-18-2022 13:31-0400 Systolic blood pressure 118 mm[Hg] Kenroy Simon FRUIT STUFFER.GRAINER MACHINE Work Phone: [facility] 10-01-2022 12:36-0400 Body weight 82.01 kg Coco Davis MD Work Phone: [facility] 10-01-2022 12:36-0400 Diastolic blood pressure 80 mm[Hg] Coco Davis MD Work Phone: [facility] 10-01-2022 12:36-0400 Heart rate 68 /min Coco Davis MD Work Phone: [facility] 10-01-2022 12:36-0400 Respiratory rate 16 /min Coco Davis MD Work Phone: [facility] 10-01-2022 12:36-0400 Systolic blood pressure 120 mm[Hg] Coco Davis MD Work Phone: [facility] 06-26-2022 11:14-0500 Body weight 83.37 kg Coco Davis MD Work Phone: [facility] 06-26-2022 11:14-0500 Diastolic blood pressure 80 mm[Hg] Coco Davis MD Work Phone: [facility] 06-26-2022 11:14-0500 Heart rate 74 /min Coco Davis MD Work Phone: [facility] 06-26-2022 11:14-0500 Respiratory rate 14 /min Coco Davis MD Work Phone: [facility] 06-26-2022 11:14-0500 Systolic blood pressure 138 mm[Hg] Coco Davis MD Work Phone: [facility] 05-22-2022 11:09-0400 Body weight 82.56 kg Coco Davis MD Work Phone: [facility] 05-22-2022 11:09-0400 Diastolic blood pressure 80 mm[Hg] Coco Davis MD Work Phone: [facility] 05-22-2022 11:09-0400 Heart rate 56 /min Coco Davis MD Work Phone: [facility] 05-22-2022 11:09-0400 Respiratory rate 16 /min Coco Davis MD Work Phone: [facility] 05-22-2022 11:09-0400 Systolic blood pressure 132 mm[Hg] Coco Davis MD Work Phone: [facility] 11-13-2021 11:43-0400 Body weight 84.19 kg Coco Davis MD Work Phone: [facility] 11-13-2021 11:43-0400 Diastolic blood pressure 80 mm[Hg] Coco Davis MD Work Phone: [facility] 11-13-2021 11:43-0400 Heart rate 68 /min Coco Davis MD Work Phone: [facility] 11-13-2021 11:43-0400 Respiratory rate 16 /min Coco Davis MD Work Phone: [facility] 11-13-2021 11:43-0400 Systolic blood pressure 138 mm[Hg] Coco Davis MD Work Phone: [facility] Encounters Encounter Date Encounter Type Care Provider Facility Start: 07-11-2023 End: 07-11-2023 ambulatory COCO DAVIS Facility:[facility] Start: 05-16-2023 End: 05-16-2023 ambulatory COCO DAVIS Facility:[facility] Start: 05-16-2023 End: 05-16-2023 Patient encounter procedure Coco Davis MD Work Phone: [facility] Procedures Date Procedure Procedure Detail Performing Clinician Start: 05-16-2023 INFLUENZA VACCINE, P RSV FREE, AGE 65+ YR, HIGH DOSE, QUADRIVALENT (FLUZONE HIGH-DOSE) Coco Davis MD Work Phone: Start: 05-16-2023 PFIZER-RetailNextNTNAVX COVI D-19 VACCINE ( SEASON) AGE 12+ YR Coco Davis MD Work Phone: Start: 10-16-2022 Ct abdomen & pelvis w/o contrast material Coco Davis MD Work Phone: Start: 05-31-2022 Us abdominal aorta r eal time screen study aaa Coco Davis MD Work Phone: Plan of Treatment Date Care Activity Detail Author Start: 09-16-2032 Urine microalbumin profile DTaP,Tdap,Td Vaccine (3 - Td or Tdap) [facility] Start: 05-08-2026 Diabetes Screening Diabetes Screening [facility] Start: 09-28-2025 DIABETES SCREEN DIABETES SCREEN [facility] Start: 05-18-2025 DIABETES SCREEN DIABETES SCREEN [facility] Start: 02-09-2025 DIABETES SCREEN DIABETES SCREEN [facility] Start: 11-08-2024 DIABETES SCREEN DIABETES SCREEN [facility] Start: 05-08-2024 Hepatitis B surface antibody level LDL Cholesterol [facility] Start: 02-02-2024 DIABETES SCREEN DIABETES SCREEN [facility] Start: 09-29-2023 Hepatitis B surface antibody level LDL CHOLESTEROL [facility] Start: 05-18-2023 Hepatitis B surface antibody level LDL CHOLESTEROL [facility] Start: 11-08-2022 Hepatitis B surface antibody level LDL CHOLESTEROL [facility] Start: 09-28-2022 End: 11-28-2022 Comprehensive metabolic 2000 panel - Serum or Plasma [facility] Work Phone: Immunizations Immunization Date Immunization Notes Care Provider Fa cili 05-16-2023 COVID-19 vaccine, ag e 12+ yr, season (Phizzbo) Coco Davis MD Work Phone: [facility] 05-16-2023 influenza (HD-IIV4) vaccine, age 65+ yr, high dose, quadrivalent, PF (FLUZONE HIGH-DOSE) Coco Davis MD Work Phone: [facility] 05-13-2022 COVID-19 booster vaccine, age 12+ yr, bivalent (Miira-BIONTECH) Coco Davis MD Work Phone: [facility] 05-13-2022 influenza, high dose seasonal, preservative-free Coco Davis MD Work Phone: [facility] 05-12-2021 influenza, high-dose , quadrivalent vaccine (FLUZONE HIGH DOSE QUADRIVALENT) Coco Davis MD Work Phone: [facility] 12-26-2020 zoster vaccine recombinant Coco Davis MD Work Phone: [facility] 09-06-2020 COVID-19 vaccine, ag e 12+ yr (PFIZER-BIONTECH - PURPLE TOP) Coco Davis MD Work Phone: [facility] 08-17-2020 COVID-19 vaccine, ag e 12+ yr (PFIZER-BIONTECH - PURPLE TOP) Coco Davis MD Work Phone: [facility] 08-04-2020 zoster vaccine recombinant Coco Davis MD Work Phone: [facility] 04-29-2020 influenza, high dose seasonal, preservative-free Coco Davis MD Work Phone: [facility] 05-04-2019 influenza, seasonal, injectable Coco Davis MD Work Phone: [facility] 04-13-2016 influenza, high dose seasonal, preservative-free Coco Davis MD Work Phone: [facility] 07-05-2015 pneumococcal conjuga te vaccine, 13 valent Coco Davis MD Work Phone: [facility] Work Phone: 04-18-2015 influenza, high dose seasonal, preservative-free Coco Davis MD Work Phone: [facility] 05-04-2014 influenza, seasonal, injectable Coco Davis MD Work Phone: [facility] Work Phone: 05-12-2013 influenza virus vacc ine, unspecified formulation oCco Davis MD Work Phone: [facility] Work Phone: 05-06-2012 influenza virus vacc ine, unspecified formulation Coco Davis MD Work Phone: [facility] Work Phone: 05-10-2011 tetanus toxoid, redu eric diphtheria toxoid, and acellular pertussis vaccine, adsorbed Coco Davis MD Work Phone: [facility] Work Phone: 05-10-2011 zoster vaccine, live Coco stover MD Work Phone: [facility] 06-05-2008 influenza virus vacc ine, unspecified formulation Coco Davis MD Work Phone: [facility] Work Phone: 06-10-2007 influenza virus vacc ine, unspecified formulation Coco Davis MD Work Phone: [facility] Work Phone: 05-30-2006 influenza virus vacc ine, unspecified formulation Coco Davis MD Work Phone: [facility] Work Phone: 06-01-2005 influenza virus vacc ine, whole virus Coco Davis MD Work Phone: [facility] Work Phone: 06-01-2005 pneumococcal polysaccharide vaccine, 23 valent Coco Davis MD Work Phone: [facility] Work Phone: 05-03-2000 tetanus and diphther ia toxoids, adsorbed, preservative free, for adult use (2 Lf of tetanus toxoid and 2 Lf of diphtheria toxoid) Coco Davis MD Work Phone: [facility] Work Phone: Payers Date Payer Category Payer Unknown [id number] 2017 Unknown HOSPITAL/MEDICAL GENERIC MEDICAL GENERIC [id number] 2017-Present [phone] [place] [address] Indemnity [id number] 2017 Unknown [id number] 2004 Medicare MEDICARE MEDICAR E A AND B [id number] 2004-Present [phone] [place] [address] Medicare [id number] 2004 Medicare MEDICARE MEDICAR E A AND B [id number] 2004-Present [phone] [place] [address] Medicare [id number] 2004 Medicare [id number] Social History Date Type Detail Facility Start: 05-12-2021 End: 05-22-2022 Tobacco smoking status NHIS Light tobacco smoker [facility] End: 07-22-2005 History of tobacco use Cigarette Smoker [facility] Start: 05-12-2021 End: 05-22-2022 Tobacco use and exposure Smokeless tobacco non-user [facility] Start: 05-12-2021 End: 05-22-2022 Alcohol intake Current drinker of alcohol (finding) [facility] Start: 07-04-2019 End: 01-05-2020 History SDOH Alcohol Frequency 2 [facility] Start: 07-04-2019 End: 01-05-2020 History SDOH Alcohol Std Drinks 1 [facility] Start: 07-04-2019 History SDOH Social Connections Meetings 3 [facility] Start: 07-04-2019 History SDOH Physica l Activity DPW 0 [facility] Start: 01-05-2020 History SDOH Financial 5 [facility] Start: 07-03-[address] [facility] Start: 05-06-2012 End: 05-22-2022 Tobacco Comment 3 cigs daily in s; prior <1/2 PPD x at least 30y [facility] Start: 1940 Sex Assigned At Not on file C [facility] Start: 11-03-2021 End: 05-22-2022 Exposure to SARS-CoV-2 (event) Not sure [facility] Start: 07-03-2019 End: 02-12-2022 History of Social function [facility] Start: 07-03-2019 End: 02-12-2022 Social connection and isolation panel [facility] Do you belong to any clubs or organizations such as taoism groups, unions, fraternal or athletic groups, or school groups? Yes [facility] Are you now , , , , never or living with a partner? [facility] How often to you hav e a drink containing alcohol? Monthly or less [facility] How many standard dr inks containing alcohol do you have on a typical day? [address] [facility] How often do you hav e 6 or more drinks on 1 occasion? Never [facility] How hard is it for y ou to pay for the very basics like food, housing, medical care, and heating Not hard at all [facility] Work Phone: Do you feel stress - tense, restless, nervous, or anxious, or unable to sleep at night because your mind is troubled all the time - these days [OSQ] Not at all [facility] (I/We) worried wheth er (my/our) food would run out before (I/we) got money to buy more. Never true [facility] Work Phone: Clinical Notes 10-25-2017 to 07-11-2023 Coco Davis MD - 05/16/2023 10:00 AM Sravan Davis MD - 01/08/2023 10:40 AM Colby Simon APRN.GRAINER MACHINE - 12/18/2022 2:13 PM Sravan Davis MD - 10/01/2022 12:40 PM EDT Note Date & Type Note Facility 07-11-2023 Note HNO ID: [id number] Author: Coco Davis MD Service: ? Author Type: Physician Type: Progress Notes Filed: 07/11/2023 3:58 PM Note Text: Chief Complaint Patient presents with: Depression: Follow up HPI Starla Medina is a 83 year old male who presents here today for 2 month follow up. He is not going to [place] this year since he needs to see [...] not included)... [facility] 05-16-2023 Note HNO ID: [id number] Author: Coco Davis MD Service: ? Author Type: Physician Type: Progress Notes Filed: 05/16/2023 12:05 PM Note Text: Chief Complaint Patient presents with: F/U 3 Month Immunizations: Flu vaccination HPI Starla Medina is a 83 year old male who presents here today for 3 month follow up. Goes to [place] from Jul 18 through Aug, just [place] of [place]. He drives down, takes 3 days to [...] He does follow with Dr. Gomez at [facility] regularly. Past medical history, appointments, [...] not included)... [facility] 05-16-2023 History of Presen t illness Narrative Chief Complaint Patient presents with: F/U 3 Month Immunizations: Flu vaccination HPI Starla Medina is a 83 year old male who presents here today for 3 month follow up. Goes to [place] from Jul 18 through Aug, just [place] of [place]. He drives down, takes 3 days to [...] He does follow with Dr. Gomez at [facility] regularly. Past medical history, appointments, [...] 05/08/2023 1.41 Monocytes % 05/08/2023 8.6 Abs Jay 05/08/2023 0.43 Eosinophils % 05/08/2023 8.8 Abs [...] vaccination - ICD9: V05.9, ICD10: Z23 - PFIZER-BIONTNAVX COVID-19 VACCINE (2022- [place]) AGE 12+ YR [...] Past Histories independently gathered by the clinical child support officer and the remaining scribed note accurately describes [...] Christal Becerra Ma documented in this encounter [facility] 02-12-2023 Note HNO ID: [id number] Author: Coco Davis MD Service: ? Author [...] not included)... [facility] 01-08-2023 Note HNO ID: [id number] Author: Coco Davis MD Service: ? Author [...] He was mowing his daughters lawn in [place] last month and hit a tree limb, gashed head, had to go to ER and get 4 mehran. He had those removed 2 weeks ago at . No LOC. Prior to that his had fallen while there and broke her hip, had to have hip replaced and was in a SNF there in [place]. She is walking with a walker and doing exercises at home. 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 LFT: Had CT scan due to elevated [...] not included)... [facility] 01-08-2023 History of Presen t illness Narrative [...] He was mowing his daughters lawn in [place] last month and hit a tree limb, gashed head, had to go to ER and get 4 mehran. He had those removed 2 weeks ago at . No LOC. Prior to that his had fallen while there and broke her hip, had to have hip replaced and was in a SNF there in [place]. She is walking with a walker and doing exercises at home. 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 LFT: Had CT scan due to elevated [...] Past Histories independently gathered by the clinical child support officer and the remaining scribed note accurately describes [...] Christal Becerra Ma documented in this encounter [facility] 12-18-2022 Note HNO ID: [id number] Author: Kenroy Simon APRN.GRAINER MACHINE Service: ? Author Type: Nurse Practitioner Type: [...] not included)... [facility] 12-18-2022 History of Presen t illness Narrative [...] agrees with plan of care. Kenroy Simon APRN.GRAINER MACHINE documented in this encounter [facility] 12-03-2022 Miscellaneous Notes OK to refill as ordered Coco Davis MD [facility] 10/01/22 NOV 01/08/23 Patient is out of state with his who will be in the hospital for the next few weeks. Please send a short term supply of the medications to the [facility] in [place], [place] on [address]. Pharmacy verified in [facility] Patient has been identified by name [...] Beatriz Remy Pss documented in this encounter [facility] 10-16-2022 Note HNO ID: [id number] Author: RT Jami(Segundo) Service: ? Author Type: Sewer Pipe Cleaner Type: Progress Notes Filed: 10/16/2022 12:00 PM [...] 11:59 AM [facility] 10-16-2022 History of Presen t illness Narrative [...] 2022 11:59 AM documented in this encounter [facility] 10-01-2022 Note HNO ID: [id number] Author: Coco Davis MD Service: ? Author [...] not included)... [facility] 10-01-2022 History of Presen t illness Narrative [...] 0.80 (A) Monocytes % 09/28/2022 10.8 Abs Jay 09/28/2022 0.45 Eosinophils % 09/28/2022 4.3 Abs [...] Past Histories independently gathered by the clinical child support officer and the remaining scribed note accurately describes [...] Christal Becerra Ma documented in this encounter [facility] 09-28-2022 Miscellaneous Notes Orders filed. Adin Sanabria APRN.CNP Pt here to get fasting labs done before appt. Please place orders. Christal Becerra Ma documented in this encounter [facility] documented in this encounter [facility]12-06-2022 History of Present illness Narrative* Coco Davis MD - 06/26/2022 11:20 AM EST Chief Complaint Patient presents with: Follow Up: 1 month HPI Starla Medina is a 82 year old male who presents here today for 1 month follow up. Will be going to [place] for the next several months. He has [...] 1 tablet by mouth once daily. vit A,C,A-Sklc-Lvthyt (OCUVITE PRESERVISION) 7,160 unit- 113 mg-100 unit [...] Lymph% 05/18/2022 23.8 Abs Lymph 05/18/2022 1.60 Jay% 05/18/2022 8.2 Abs Jay 05/18/2022 0.55 Eosin% 05/18/2022 12.2 Abs Eosin [...] Past Histories independently gathered by the clinical child support officer and the remaining scribed note accurately describes [...] AM. Christal Becerra [facility] History of Present illness Narrative* Bren [...] 31, 2022 2:46 PM [facility] Miscellaneous Notes* Telephone Encounter - Ashley Ham - 05/25/2022 1:10 PM EDT Ultrasound scheduled. Patient states he will call back in to schedule Physical Therapy another time. * Telephone Encounter - Belkys Ngo Ma - 05/24/2022 4:35 PM EDT Pt sent [employer] message back with information below. Made pt aware he needs to contact [facility] Scheduling to setup US and PT appt's. If questions, pt to contact office. Belkys gNo Ma * Telephone Encounter - Coco Davis [...] 05/22/22. Belkys Ngo Ma [facility] History of Present illness Narrative* Coco Davis MD - 05/22/2022 11:00 AM EDT Chief Complaint Patient presents with: F/U 3 Month HPI tSarla Medina is a 82 year old male [...] 1 tablet by mouth once daily. vit A,C,C-Jkno-Xlnngg (OCUVITE PRESERVISION) 7,160 unit- 113 mg-100 unit [...] Lymph% 05/18/2022 23.8 Abs Lymph 05/18/2022 1.60 Jay% 05/18/2022 8.2 Abs Jay 05/18/2022 0.55 Eosin% 05/18/2022 12.2 Abs Eosin [...] Past Histories independently gathered by the clinical child support officer and the remaining scribed note accurately describes [...] AM. Belkys Ngo Ma [facility] Miscellaneous Notes* Telephone Encounter - Belkys Ngo Ma - 2022 8:20 AM EDT Please see pt message and advise. Belkys Ngo Ma [facility] Miscellaneous Notes* Telephone Encounter - Belkys Ngo Ma - 03/08/2022 9:25 AM EDT Last Rx: 03/13/21 #90 w/3. Update pt via [email or web address] once sent. Last OV: 02/12/22 Next OV: 05/22/22 Belkys Ngo Ma [facility] Miscellaneous Notes* Telephone Encounter - Belkys Ngo Ma - 02/13/2022 11:23 AM EDT See pt message regarding Wellbutrin. Belkys Ngo Ma [facility] History of Present illness Narrative* Coco [...] Takes 1 tab every other day. vit A,C,G-Xfyv-Tlxhwe (OCUVITE PRESERVISION) 7,160 unit- 113 mg-100 unit [...] Lymph% 11/08/2021 19.9 Abs Lymph 11/08/2021 1.04 Jay% 11/08/2021 8.2 Abs Jay 11/08/2021 0.43 Eosin% 11/08/2021 6.3 Abs Eosin [...] PANEL 3. 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 Christal Becerra Ma [facility] Nurse Note* Christal Becerra Ma - [...] Falls and Maintaining Balance documented in [facility] encounterSt[facility]04-[facility] Miscellaneous Notes* Telephone Encounter - Belkys Ngo Ma - 10/30/2021 1:02 PM EDT Pt notified of fasting labs that need completed. Belkys Ngo Ma [facility] History of Past illness Narrative* Problem Noted Date Resolved Date Dermatochalasis of both eyelids 10/25/2017 10/25/2017 documented as of this encounter (statuses as of 10/30/2021) [address] History of Past illness Narrative* Problem Noted Date Resolved Date Dermatochalasis of both eyelids 10/25/2017 10/25/2017 documented as of this encounter (statuses as of 11/13/2021) [address] History of Past illness Narrative* Problem Noted Date Resolved Date Dermatochalasis of both eyelids 10/25/2017 10/25/2017 documented as of this encounter (statuses as of 02/13/2022) [address] History of Past illness Narrative* Problem Noted Date Resolved Date Dermatochalasis of both eyelids 10/25/2017 10/25/2017 documented as of this encounter (statuses as of 03/08/2022) [address] History of Past illness Narrative* Problem Noted Date Resolved Date Dermatochalasis of both eyelids 10/25/2017 10/25/2017 documented as of this encounter (statuses as of 03/27/2022) [address] History of Past illness Narrative* Problem Noted Date Resolved Date Dermatochalasis of both eyelids 10/25/2017 10/25/2017 documented as of this encounter (statuses as of 2022) [address] History of Past illness Narrative* Problem Noted Date Resolved Date Dermatochalasis of both eyelids 10/25/2017 10/25/2017 documented as of this encounter (statuses as of 05/22/2022) [address] History of Past illness Narrative* Problem Noted Date Resolved Date Dermatochalasis of both eyelids 10/25/2017 10/25/2017 documented as of this encounter (statuses as of 05/25/2022) [address] History of Past illness Narrative* Problem Noted Date Resolved Date Dermatochalasis of both eyelids 10/25/2017 10/25/2017 documented as of this encounter (statuses as of 06/26/2022) [address] History of Past illness Narrative* Problem Noted Date Resolved Date Dermatochalasis of both eyelids 10/25/2017 10/25/2017 documented as of this encounter (statuses as of 09/28/2022) [address] History of Past illness Narrative* Problem Noted Date Resolved Date Dermatochalasis of both eyelids 10/25/2017 10/25/2017 documented as of this encounter (statuses as of 10/01/2022) [address] History of Past illness Narrative* Problem Noted Date Resolved Date Dermatochalasis of both eyelids 10/25/2017 10/25/2017 documented as of this encounter (statuses as of 12/04/2022) [address] History of Past illness Narrative* Problem Noted Date Resolved Date Dermatochalasis of both eyelids 10/25/2017 10/25/2017 documented as of this encounter (statuses as of 12/19/2022) [address]-2018 History of Past illness Narrative* Problem Noted Date Resolved Date Dermatochalasis of both eyelids 10/25/2017 10/25/2017 documented as of this encounter (statuses as of 01/08/2023) [address]-2018 History of Past illness Narrative* Problem Noted Date Diagnosed Date Resolved Date Dermatochalasis of both eyelids 10/25/2017 10/25/2017 Chronic kidney disease, stage III (moderate) 8 02/12/2023 Overview: Calc GFR = 48 ml/min, 608. documented as of this encounter (statuses as of 05/16/2023) [address]-2018 History of Past illness Narrative* Problem Noted Date Diagnosed Date Resolved Date Dermatochalasis of both eyelids 10/25/2017 10/25/2017 Chronic kidney disease, stage III (moderate) 8 02/12/2023 Overview: Calc GFR = 48 ml/min, 6/08. documented as of this encounter (statuses as of 05/26/2023) [address]-2018 History of Past illness Narrative* Problem Noted Date Diagnosed Date Resolved Date Dermatochalasis of both eyelids 10/25/2017 10/25/2017 Chronic kidney disease, stage III (moderate) 8 02/12/2023 Overview: Calc GFR = 48 ml/min, 12/27. documented as of this encounter (statuses as of 05/26/2023) [facility]04-06-2018 History of Past illness Narrative* Problem Noted Date Diagnosed Date Resolved Date Dermatochalasis of both eyelids 10/25/2017 10/25/2017 Chronic kidney disease, stage III (moderate) 8 02/12/2023 Overview: Calc GFR = 48 ml/min, 12/27. documented as of this encounter (statuses as of 05/26/2023) [facility] Diagnosis Essential hypertension, benign- Primary Mixed hyperlipidemia Atherosclerosis of coronary artery of [place] heart with angina pectoris, unspecified vessel or lesion type (HCC) Thrombocytopenia (HCC) Thrombocytopenia, unspecified Impaired fasting glucose Elevated LFTs Other abnormal blood chemistry RLS (restless legs syndrome) Restless legs syndrome (RLS) [facility] this [facility] Diagnosis Essential hypertension, benign [facility] Diagnosis Mixed hyperlipidemia BPH (benign prostatic hyperplasia) Unspecified hyperplasia of prostate without urinary obstruction and other lower urinary tract symptoms (LUTS) [facility] Diagnosis Essential hypertension, benign- Primary Mixed [...] and myositis, unspecified [facility] Diagnosis Abdominal aortic aneurysm (AAA) without rupture, unspecified part- Primary Chronic midline low back pain, unspecified whether sciatica present [facility] Diagnosis Anxiety with depression- Primary Balance problem Other symptoms involving nervous and musculoskeletal systems Abdominal aortic aneurysm (AAA) without rupture, unspecified part Essential hypertension, benign Stage 3 chronic kidney disease, unspecified whether stage 3a or 3b CKD (HCC) Thrombocytopenia (HCC) Thrombocytopenia, unspecified 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 Diagnosis Essential hypertension, benign BPH (benign prostatic hyperplasia) Unspecified hyperplasia of prostate without urinary obstruction and other lower urinary tract symptoms (LUTS) Mixed hyperlipidemia [facility] Diagnosis Encounter for staple removal- Primary Encounter for removal of sutures [facility] Diagnosis Essential hypertension, benign- Primary Mixed hyperlipidemia Anxiety with depression Benign prostatic hyperplasia without lower urinary tract symptoms Impaired fasting glucose Abdominal aortic aneurysm (AAA) without rupture, unspecified part (HCC) Atherosclerosis of coronary artery of [place] heart with angina pectoris, unspecified vessel or lesion type (HCC) [facility] Diagnosis Essential hypertension, benign- Primary Need [...] (HCC) Thrombocytopenia, unspecified 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 Diagnosis Abdominal aortic aneurysm (AAA) without rupture, unspecified part (HCC) documented in this encounter [facility] for referral (narrative)* Diagnostic Procedure Only (Routine) - Closed Specialty Diagnoses / Procedures Referred By Contac t Referred To Contact XR IMAGING Diagnoses Chronic midline low back pain, unspecified whether sciatica present Procedures XR LUMBAR GENERAL 3V AP/LAT/L5-S1 RADEX SPINE LUMBOSACRAL 2/3 VIEWS Coco Davis MD [address] [place] [address] Xr Imaging Referral ID Status Reason Start Date Expiration Date V isits Requested Visits Authorized [id number] Closed Auto-Generate d Referral 05/22/2022 06/21/[address] [facility] Diagnostic Procedure Only (Routine) - Closed Specialty Diagnoses / Procedures Referred By Contac t Referred To Contact US IMAGING Diagnoses Abdominal aortic aneurysm (AAA) without rupture, unspecified part (HCC) Procedures US SCREENING FOR AAA (2017) US ABDOMINAL AORTA REAL TIME SCREEN STUDY AAA Coco Davis MD [address] [place] [address] [place] [address] Referral ID Status Reason Start Date Expiration Date V isits Requested Visits Authorized [id number] Closed Auto-Generate d Referral 05/24/2022 06/23/2023 1 1 [facility] Summary Purpose Family History No Family History Records FoundNo Family History Records Found Advance Directives No Advanced Directives Records FoundDocuments on File Type Date Recorded 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 Advance Directive(s) 10/25/2017 11:37 AM Reason for Referral Specialty Diagnoses / Procedures Referred By Contac t Referred To Contact [facility] Diagnoses Chronic midline low back pain, unspecified whether sciatica present Procedures CONSULT TO PHYSICAL THERAPY PHYSICAL THERAPY EVALUATION HIGH COMPLEX 45 MINS Coco Davis MD [address] [place] [address] [facility] [address] [place] [address] Referral ID Status Reason Start Date Expiration Date Visits Requested Visits Authorized [id number] Authorized PCP Requested Referral Auto-Generate d Referral 05/24/2022 05/24/2023 99 99 Specialty Diagnoses / Procedures Referred By Contac t Referred To Contact US IMAGING Diagnoses Abdominal aortic aneurysm (AAA) without rupture, unspecified part Procedures US SCREENING FOR AAA (2017) US ABDOMINAL AORTA REAL TIME SCREEN STUDY AAA Coco Davis MD [address] [place] [address] Us Imaging Referral ID Status Reason Start Date Expiration Date Visits Requested Visits Authorized [id number] Authorized Auto-Generat ed Referral 05/24/2022 06/23/2023 1 1 Specialty Diagnoses / Procedures Referred By Contac t Referred To Contact CT IMAGING Diagnoses Elevated LFTs Cirrhosis, nonalcoholic (HCC) Procedures CT ABD/PEL WO IVCON CT ABD & PELVIS W/O CONTRAST Coco Davis MD [address] [place] [address] Ct Imaging Referral ID Status Reason Start Date Expiration Date Visits Requested Visits Authorized [id number] Authorized Auto-Generat ed Referral 10/01/2022 10/31/2023 1 1 Specialty Diagnoses / Procedures Referred By Contac t Referred To Contact Gastroenterology Diagnoses Elevated LFTs Cirrhosis, nonalcoholic (HCC) Procedures CONSULT TO GASTROENTEROLOGY OFFICE/OUTPATIENT [facility] MDM 60-74 MINUTES Coco Davis MD [address] [place] [address] Referral ID Status Reason Start Date Expiration Date Visits Requested Visits Authorized [id number] Authorized PCP Requested Referral 05/15/2024 1 1 Specialty Diagnoses / Procedures Referred By Contac t Referred To Contact CT IMAGING Diagnoses Elevated LFTs Cirrhosis, nonalcoholic (HCC) Procedures CT ABD/PEL WO IVCON CT ABD & PELVIS W/O CONTRAST Coco Davis MD [address] [place] [address] [place] [address] Referral ID Status Reason Start Date Expiration Date V isits Requested Visits Authorized [id number] Closed Auto-Generate d Referral 10/01/2022 10/31/2023 1 1 Additional Source Comments (unrecognized sect ion and content) No Status Records FoundNo Status Records Found INFORMATION SOURCE (unrecogn ized section and content) DATE CREATED AUTHOR AUTHOR'S ORGANIZ ATION 07/12/2023 [facility] Source Comments (unrecognize d section and content) In the event this informatio n is protected by the Federal Confidentiality of Alcohol and Drug Abuse Patient Records regulations: The Federal rules restrict any use of the information to criminally investigate or prosecute any alcohol or drug abuse patient.[facility] the event this information is protected by the Federal Confidentiality of Alcohol and Drug Abuse Patient Records regulations: The Federal rules restrict any use of the information to criminally investigate or prosecute any alcohol or drug abuse patient.[facility] the event this information is protected by the Federal Confidentiality of Alcohol and Drug Abuse Patient Records regulations: The Federal rules restrict any use of the information to criminally investigate or prosecute any alcohol or drug abuse patient.[facility] the event this information is protected by the Federal Confidentiality of Alcohol and Drug Abuse Patient Records regulations: The Federal rules restrict any use of the information to criminally investigate or prosecute any alcohol or drug abuse patient.[facility] the event this information is protected by the Federal Confidentiality of Alcohol and Drug Abuse Patient Records regulations: The Federal rules restrict any use of the information to criminally investigate or prosecute any alcohol or drug abuse patient.[facility] the event this information is protected by the Federal Confidentiality of Alcohol and Drug Abuse Patient Records regulations: The Federal rules restrict any use of the information to criminally investigate or prosecute any alcohol or drug abuse patient.[facility] the event this information is protected by the Federal Confidentiality of Alcohol and Drug Abuse Patient Records regulations: The Federal rules restrict any use of the information to criminally investigate or prosecute any alcohol or drug abuse patient.[facility] the event this information is protected by the Federal Confidentiality of Alcohol and Drug Abuse Patient Records regulations: The Federal rules restrict any use of the information to criminally investigate or prosecute any alcohol or drug abuse patient.[facility] the event this information is protected by the Federal Confidentiality of Alcohol and Drug Abuse Patient Records regulations: The Federal rules restrict any use of the information to criminally investigate or prosecute any alcohol or drug abuse patient.[facility] the event this information is protected by the Federal Confidentiality of Alcohol and Drug Abuse Patient Records regulations: The Federal rules restrict any use of the information to criminally investigate or prosecute any alcohol or drug abuse patient.[facility] the event this information is protected by the Federal Confidentiality of Alcohol and Drug Abuse Patient Records regulations: The Federal rules restrict any use of the information to criminally investigate or prosecute any alcohol or drug abuse patient.[facility] the event this information is protected by the Federal Confidentiality of Alcohol and Drug Abuse Patient Records regulations: The Federal rules restrict any use of the information to criminally investigate or prosecute any alcohol or drug abuse patient.[facility] the event this information is protected by the Federal Confidentiality of Alcohol and Drug Abuse Patient Records regulations: The Federal rules restrict any use of the information to criminally investigate or prosecute any alcohol or drug abuse patient.[facility] the event this information is protected by the Federal Confidentiality of Alcohol and Drug Abuse Patient Records regulations: The Federal rules restrict any use of the information to criminally investigate or prosecute any alcohol or drug abuse patient.[facility] the event this information is protected by the Federal Confidentiality of Alcohol and Drug Abuse Patient Records regulations: The Federal rules restrict any use of the information to criminally investigate or prosecute any alcohol or drug abuse patient.[facility] the event this information is protected by the Federal Confidentiality of Alcohol and Drug Abuse Patient Records regulations: The Federal rules restrict any use of the information to criminally investigate or prosecute any alcohol or drug abuse patient.[facility] the event this information is protected by the Federal Confidentiality of Alcohol and Drug Abuse Patient Records regulations: The Federal rules restrict any use of the information to criminally investigate or prosecute any alcohol or drug abuse patient.[facility] the event this information is protected by the Federal Confidentiality of Alcohol and Drug Abuse Patient Records regulations: The Federal rules restrict any use of the information to criminally investigate or prosecute any alcohol or drug abuse patient.[facility] Care Teams (unrecognized sec tion and content) Radio Repairer Relationship Specialty Start Date End Date Coco Davis MD [address] [place], [place] [id number] PCP - General Family Practice 04/18/15 Radio Repairer Relationship Specialty Start Date End Date Coco Davis MD [address] [place] [address] PCP - General Family Practice 04/18/15 Radio Repairer Relationship Specialty Start Date End Date Coco Davis MD [address] [place] [address] PCP - General Family Practice 04/18/15 Radio Repairer Relationship Specialty Start Date End Date Coco Davis MD [address] [place] [address] PCP - General Family Practice 04/18/15 Radio Repairer Relationship Specialty Start Date End Date Coco Davis MD [address] [place] [address] PCP - General Family Medicine 04/18/15 Radio Repairer Relationship Specialty Start Date End Date Coco Davis MD [address] [place] [address] PCP - General Family Medicine 04/18/15 Radio Repairer Relationship Specialty Start Date End Date Coco Davis MD [address] [place] [address] PCP - General Family Medicine 04/18/15 Radio Repairer Relationship Specialty Start Date End Date Coco Davis MD [address] [place] [address] PCP - General Family Medicine 04/18/15 Radio Repairer Relationship Specialty Start Date End Date Coco Davis MD [address] [place] [address] PCP - General Family Medicine 04/18/15 Radio Repairer Relationship Specialty Start Date End Date Coco Davis MD [address] [place] [address] PCP - General Family Medicine 04/18/15 Radio Repairer Relationship Specialty Start Date End Date Coco Davis MD [address] [place] [address] PCP - General Family Medicine 04/18/15 Radio Repairer Relationship Specialty Start Date End Date Coco Davis MD [address] [place] [address] PCP - General Family Medicine 04/18/15 Radio Repairer Relationship Specialty Start Date End Date Coco Davis MD [address] [place], [place] [address] PCP - General Family Medicine 04/18/15 Radio Repairer Relationship Specialty Start Date End Date Coco Davis MD [address] [place], [place] [id number] PCP - General Family Medicine 04/18/15 Radio Repairer Relationship Specialty Start Date End Date Coco Davis MD [address] [place], [place] [id number] PCP - General [facility] Medicine 04/18/15 Radio Repairer Relationship Specialty Start Date End Date Coco Davis MD [address] [place], [place] [id number] PCP - General Family Medicine 04/18/15 Reason for Visit (unrecogniz ed section and content) Specialty Diagnoses / Procedures Referred By Contac t Referred To Contact CT IMAGING Diagnoses Elevated LFTs Cirrhosis, nonalcoholic (HCC) Procedures CT ABD/PEL WO IVCON CT ABD & PELVIS W/O CONTRAST Coco Davis MD [address] [place] [address] [place] [address] Referral ID Status Reason Start Date Expiration Date V isits Requested Visits Authorized [id number] Closed Auto-Generate d Referral 10/01/2022 10/31/2023 1 [...] TIME SCREEN STUDY AAA Coco Davis MD [address] [place] [address] [place] [address] Referral ID Status Reason Start Date Expiration Date V isits Requested Visits Authorized [id number] Closed Auto-Generate d Referral 05/24/2022 06/23/2023 1 [...] BE BASED ON THE PRIMARY CLINICAL RECORDS. [email or web address] provides no warranty or guarantee of the accuracy or completeness of information in this document.
[2023-08-01] MEDS: Calcium Gluconate IV 3 GM in Syringe 1 EACH IV (20:08)
[2023-08-01] MEDS: Insulin Lispro 10 UNIT in Syringe 0 ML 6 UNIT IV (20:09)
[2023-08-01] MEDS: Dextrose 50%-Water 25 GM/50 ML DISP.SYRIN IV (20:09)
--- OUTSIDE RECORDS SUMMARY | 2023-08-01 20:15 | XMS RPT_ITS | CCD ---
Author Name Unknown Address [address] [place] [address] Organization [facility] Care Team Providers Care Lumber Hacker Name Role Phone ERICK MINER Unavailable Unavail [...] lisinopril; Translations: [LISINOPRIL] Drug Allergy 0 Cough [facility] Repository (20 sources) AMOXICILLIN-POT CLAVULANATE; Translations: [AMOXICILLIN-POT CLAVULANATE] Propensity to adverse reactions to drug (disorder) 6 [facility] Repository Medications Current Medications Medication Drug [...] Coronary atherosclerosis; Translations: [Atherosclerotic heart disease of [place] coronary artery with unspecified angina pectoris] Onset: [...] 84.41 kg Coco Davis MD Work Phone: [facility] 05-16-2023 10:10-0400 Diastolic blood pressure 72 mm[Hg] Coco Davis MD Work Phone: [facility] 05-16-2023 10:10-0400 Heart rate 66 /min Coco Davis MD Work Phone: [facility] 05-16-2023 10:10-0400 Respiratory rate 16 /min Coco Davis MD Work Phone: [facility] 05-16-2023 10:10-0400 Systolic blood pressure 122 mm[Hg] Coco Davis MD Work Phone: [facility] 01-08-2023 10:32-0400 Body weight 84.14 kg Coco Davis MD Work Phone: [facility] 01-08-2023 10:32-0400 Diastolic blood pressure 80 mm[Hg] Coco Davis MD Work Phone: [facility] 01-08-2023 10:32-0400 Heart rate 70 /min Coco Davis MD Work Phone: [facility] 01-08-2023 10:32-0400 Respiratory rate 16 /min Coco Davis MD Work Phone: [facility] 01-08-2023 10:32-0400 Systolic blood pressure 120 mm[Hg] Coco Davis MD Work Phone: [facility] 12-18-2022 13:31-0400 Body temperature 97.11 [degF] Kenroy Pendlebury SET UP AND CHARGER.NETWORK TECHNICIAN Work Phone: [facility] 12-18-2022 13:31-0400 Body weight 84.28 kg Kenroy Pendlebury SET UP AND CHARGER.NETWORK TECHNICIAN Work Phone: [facility] 12-18-2022 13:31-0400 Diastolic blood pressure 80 mm[Hg] Kenroy Pendlebury SET UP AND CHARGER.NETWORK TECHNICIAN Work Phone: [facility] 12-18-2022 13:31-0400 Heart rate 63 /min Kenroy Pendlebury SET UP AND CHARGER.NETWORK TECHNICIAN Work Phone: [facility] 12-18-2022 13:31-0400 Respiratory rate 18 /min Kenroy Pendlebury SET UP AND CHARGER.NETWORK TECHNICIAN Work Phone: [facility] 12-18-2022 13:31-0400 SaO2% (BldA) [Mass fraction] 96 % Kenroy Simon SET UP AND CHARGER.NETWORK TECHNICIAN Work Phone: [facility] 12-18-2022 13:31-0400 Systolic blood pressure 118 mm[Hg] Kenroy Simon SET UP AND CHARGER.NETWORK TECHNICIAN Work Phone: [facility] 10-01-2022 12:36-0400 Body weight 82.01 kg Coco Davis MD Work Phone: [facility] 10-01-2022 12:36-0400 Diastolic blood pressure 80 mm[Hg] Coco Davis MD Work Phone: [facility] 10-01-2022 12:36-0400 Heart rate 68 /min Coco Davis MD Work Phone: [facility] 10-01-2022 12:36-0400 Respiratory rate 16 /min Coco Davis MD Work Phone: [facility] 10-01-2022 12:36-0400 Systolic blood pressure 120 mm[Hg] Coco Davis MD Work Phone: [facility] 06-26-2022 11:14-0500 Body weight 83.37 kg Coco Davis MD Work Phone: [facility] 06-26-2022 11:14-0500 Diastolic blood pressure 80 mm[Hg] Coco Davis MD Work Phone: [facility] 06-26-2022 11:14-0500 Heart rate 74 /min Coco Davis MD Work Phone: [facility] 06-26-2022 11:14-0500 Respiratory rate 14 /min Coco Davis MD Work Phone: [facility] 06-26-2022 11:14-0500 Systolic blood pressure 138 mm[Hg] Coco Davis MD Work Phone: [facility] 05-22-2022 11:09-0400 Body weight 82.56 kg Coco Davis MD Work Phone: [facility] 05-22-2022 11:09-0400 Diastolic blood pressure 80 mm[Hg] Coco Davis MD Work Phone: [facility] 05-22-2022 11:09-0400 Heart rate 56 /min Coco Davis MD Work Phone: [facility] 05-22-2022 11:09-0400 Respiratory rate 16 /min Coco Davis MD Work Phone: [facility] 05-22-2022 11:09-0400 Systolic blood pressure 132 mm[Hg] Coco Davis MD Work Phone: [facility] 11-13-2021 11:43-0400 Body weight 84.19 kg Coco Davis MD Work Phone: [facility] 11-13-2021 11:43-0400 Diastolic blood pressure 80 mm[Hg] Coco Davis MD Work Phone: [facility] 11-13-2021 11:43-0400 Heart rate 68 /min Coco Davis MD Work Phone: [facility] 11-13-2021 11:43-0400 Respiratory rate 16 /min Coco Davis MD Work Phone: [facility] 11-13-2021 11:43-0400 Systolic blood pressure 138 mm[Hg] Coco Davis MD Work Phone: [facility] Encounters Encounter Date Encounter Type Care Provider Facility Start: 07-11-2023 End: 07-11-2023 ambulatory COCO DAVIS Facility:[facility] Start: 05-16-2023 End: 05-16-2023 ambulatory COCO DAVIS Facility:[facility] Start: 05-16-2023 End: 05-16-2023 Patient encounter procedure Coco Davis MD Work Phone: [facility] Procedures Date Procedure Procedure Detail Performing Clinician Start: 05-16-2023 INFLUENZA VACCINE, P RSV FREE, AGE 65+ YR, HIGH DOSE, QUADRIVALENT (FLUZONE HIGH-DOSE) Coco Davis MD Work Phone: Start: 05-16-2023 PFIZER-LikehackNTFreebeepay COVI D-19 VACCINE ( SEASON) AGE 12+ YR Coco Davis MD Work Phone: Start: 10-16-2022 Ct abdomen & pelvis w/o contrast material Coco Davis MD Work Phone: Start: 05-31-2022 Us abdominal aorta r eal time screen study aaa Coco Davis MD Work Phone: Plan of Treatment Date Care Activity Detail Author Start: 09-16-2032 Urine microalbumin profile DTaP,Tdap,Td Vaccine (3 - Td or Tdap) [facility] Start: 05-08-2026 Diabetes Screening Diabetes Screening [facility] Start: 09-28-2025 DIABETES SCREEN DIABETES SCREEN [facility] Start: 05-18-2025 DIABETES SCREEN DIABETES SCREEN [facility] Start: 02-09-2025 DIABETES SCREEN DIABETES SCREEN [facility] Start: 11-08-2024 DIABETES SCREEN DIABETES SCREEN [facility] Start: 05-08-2024 Hepatitis B surface antibody level LDL Cholesterol [facility] Start: 02-02-2024 DIABETES SCREEN DIABETES SCREEN [facility] Start: 09-29-2023 Hepatitis B surface antibody level LDL CHOLESTEROL [facility] Start: 05-18-2023 Hepatitis B surface antibody level LDL CHOLESTEROL [facility] Start: 11-08-2022 Hepatitis B surface antibody level LDL CHOLESTEROL [facility] Start: 09-28-2022 End: 11-28-2022 Comprehensive metabolic 2000 panel - Serum or Plasma [facility] Work Phone: Immunizations Immunization Date Immunization Notes Care Provider Fa cili 05-16-2023 COVID-19 vaccine, ag e 12+ yr, season (mobifriends) Coco Davis MD Work Phone: [facility] 05-16-2023 influenza (HD-IIV4) vaccine, age 65+ yr, high dose, quadrivalent, PF (FLUZONE HIGH-DOSE) Coco Davis MD Work Phone: [facility] 05-13-2022 COVID-19 booster vaccine, age 12+ yr, bivalent (Precognate-BIONTECH) Coco Davis MD Work Phone: [facility] 05-13-2022 influenza, high dose seasonal, preservative-free Coco Davis MD Work Phone: [facility] 05-12-2021 influenza, high-dose , quadrivalent vaccine (FLUZONE HIGH DOSE QUADRIVALENT) Coco Davis MD Work Phone: [facility] 12-26-2020 zoster vaccine recombinant Coco Davis MD Work Phone: [facility] 09-06-2020 COVID-19 vaccine, ag e 12+ yr (PFIZER-BIONTECH - PURPLE TOP) Coco Davis MD Work Phone: [facility] 08-17-2020 COVID-19 vaccine, ag e 12+ yr (PFIZER-BIONTECH - PURPLE TOP) Coco Davis MD Work Phone: [facility] 08-04-2020 zoster vaccine recombinant Coco Davis MD Work Phone: [facility] 04-29-2020 influenza, high dose seasonal, preservative-free Coco Davis MD Work Phone: [facility] 05-04-2019 influenza, seasonal, injectable Coco Davis MD Work Phone: [facility] 04-13-2016 influenza, high dose seasonal, preservative-free Coco Davis MD Work Phone: [facility] 07-05-2015 pneumococcal conjuga te vaccine, 13 valent Coco Davis MD Work Phone: [facility] Work Phone: 04-18-2015 influenza, high dose seasonal, preservative-free Coco Davis MD Work Phone: [facility] 05-04-2014 influenza, seasonal, injectable Coco Davis MD Work Phone: [facility] Work Phone: 05-12-2013 influenza virus vacc ine, unspecified formulation Coco Davis MD Work Phone: [facility] Work Phone: 05-06-2012 influenza virus vacc ine, unspecified formulation Coco Davis MD Work Phone: [facility] Work Phone: 05-10-2011 tetanus toxoid, redu eric diphtheria toxoid, and acellular pertussis vaccine, adsorbed Coco Davis MD Work Phone: [facility] Work Phone: 05-10-2011 zoster vaccine, live Coco stover MD Work Phone: [facility] 06-05-2008 influenza virus vacc ine, unspecified formulation Coco Davis MD Work Phone: [facility] Work Phone: 06-10-2007 influenza virus vacc ine, unspecified formulation Coco Davis MD Work Phone: [facility] Work Phone: 05-30-2006 influenza virus vacc ine, unspecified formulation Coco Davis MD Work Phone: [facility] Work Phone: 06-01-2005 influenza virus vacc ine, whole virus Coco Davis MD Work Phone: [facility] Work Phone: 06-01-2005 pneumococcal polysaccharide vaccine, 23 valent Coco Davis MD Work Phone: [facility] Work Phone: 05-03-2000 tetanus and diphther ia toxoids, adsorbed, preservative free, for adult use (2 Lf of tetanus toxoid and 2 Lf of diphtheria toxoid) Coco Davis MD Work Phone: [facility] Work Phone: Payers Date Payer Category Payer Unknown [id number] 2017 Unknown HOSPITAL/MEDICAL GENERIC MEDICAL GENERIC [id number] 2017-Present [phone] [place] [address] Indemnity [id number] 2017 Unknown [id number] 2004 Medicare MEDICARE MEDICAR E A AND B [id number] 2004-Present [phone] [place] [address] Medicare [id number] 2004 Medicare MEDICARE MEDICAR E A AND B [id number] 2004-Present [phone] [place] [address] Medicare [id number] 2004 Medicare [id number] Social History Date Type Detail Facility Start: 05-12-2021 End: 05-22-2022 Tobacco smoking status NHIS Light tobacco smoker [facility] End: 07-22-2005 History of tobacco use Cigarette Smoker [facility] Start: 05-12-2021 End: 05-22-2022 Tobacco use and exposure Smokeless tobacco non-user [facility] Start: 05-12-2021 End: 05-22-2022 Alcohol intake Current drinker of alcohol (finding) [facility] Start: 07-04-2019 End: 01-05-2020 History SDOH Alcohol Frequency 2 [facility] Start: 07-04-2019 End: 01-05-2020 History SDOH Alcohol Std Drinks 1 [facility] Start: 07-04-2019 History SDOH Social Connections Meetings 3 [facility] Start: 07-04-2019 History SDOH Physica l Activity DPW 0 [facility] Start: 01-05-2020 History SDOH Financial 5 [facility] Start: 07-03-2019 Education 18 [facility] Start: 05-06-2012 End: 05-22-2022 Tobacco Comment 3 cigs daily in s; prior <1/2 PPD x at least 30y [facility] Start: 1940 Sex Assigned At Not on file [facility] Start: 11-03-2021 End: 05-22-2022 Exposure to SARS-CoV-2 (event) Not sure [facility] Start: 07-03-2019 End: 02-12-2022 History of Social function [facility] Start: 07-03-2019 End: 02-12-2022 Social connection and isolation panel [facility] Do you belong to any clubs or organizations such as yarsani groups, unions, fraternal or athletic groups, or school groups? Yes [facility] Are you now , , , , never or living with a partner? [facility] How often to you hav e a drink containing alcohol? Monthly or less [facility] How many standard dr inks containing alcohol do you have on a typical day? 1 or 2 [facility] How often do you hav e 6 or more drinks on 1 occasion? Never [facility] How hard is it for y ou to pay for the very basics like food, housing, medical care, and heating Not hard at all [facility] Work Phone: Do you feel stress - tense, restless, nervous, or anxious, or unable to sleep at night because your mind is troubled all the time - these days [OSQ] Not at all [facility] (I/We) worried wheth er (my/our) food would run out before (I/we) got money to buy more. Never true [facility] Work Phone: Clinical Notes 10-25-2017 to 07-11-2023 Coco Davis MD - 05/16/2023 10:00 AM Sravan Davis MD - 01/08/2023 10:40 AM Colby Simon APRN.NETWORK TECHNICIAN - 12/18/2022 2:13 PM Sravan Davis MD - 10/01/2022 12:40 PM EDT Note Date & Type Note Facility 07-11-2023 Note HNO ID: [id number] Author: Coco Davis MD Service: ? Author Type: Physician Type: Progress Notes Filed: 07/11/2023 3:58 PM Note Text: Chief Complaint Patient presents with: Depression: Follow up HPI Starla Medina is a 83 year old male who presents here today for 2 month follow up. He is not going to [place] this year since he needs to see [...] lb) SpO2 97% (more content not included)... [facility] 05-16-2023 Note HNO ID: [id number] Author: Coco Davis MD Service: ? Author Type: Physician Type: Progress Notes Filed: 05/16/2023 12:05 PM Note Text: Chief Complaint Patient presents with: F/U 3 Month Immunizations: Flu vaccination HPI Starla Medina is a 83 year old male who presents here today for 3 month follow up. Goes to [place] from Jul 18 through Aug, just [place] of [place]. He drives down, takes 3 days to [...] He does follow with Dr. Gomez at [facility] regularly. Past medical history, appointments, medications, allergies [...] Vaccine( - 2022- (more content not included)... [facility] 05-16-2023 History of Presen t illness Narrative Chief Complaint Patient presents with: F/U 3 Month Immunizations: Flu vaccination HPI Starla Medina is a 83 year old male who presents here today for 3 month follow up. Goes to [place] from Jul 18 through Aug, just [place]. He drives down, takes 3 days to [...] He does follow with Dr. Gomez at [facility] regularly. Past medical history, appointments, medications, allergies [...] 05/08/2023 1.41 Monocytes % 05/08/2023 8.6 Abs Pickett 05/08/2023 0.43 Eosinophils % 05/08/2023 8.8 Abs [...] vaccination - ICD9: V05.9, ICD10: Z23 - PFIZER-BIONTFreebeepay COVID-19 VACCINE (2022- SEASON) AGE 12+ YR [...] Past Histories independently gathered by the clinical is support analyst and the remaining scribed note accurately describes [...] Christal Becerra Ma documented in this encounter [facility] 02-12-2023 Note HNO ID: [id number] Author: Coco Davis MD Service: ? Author [...] 2. Essential h (more content not included)... [facility] 01-08-2023 Note HNO ID: [id number] Author: Coco Davis MD Service: ? Author [...] He was mowing his daughters lawn in [place] last month and hit a tree limb, gashed head, had to go to ER and get 4 mehran. He had those removed 2 weeks ago at . No LOC. Prior to that his had fallen while there and broke her hip, had to have hip replaced and was in a SNF there in [place]. She is walking with a walker and doing exercises at home. 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 LFT: Had CT scan due to elevated [...] Alcohol use: Ye (more content not included)... [facility] 01-08-2023 History of Presen t illness Narrative [...] He was mowing his daughters lawn in [place] last month and hit a tree limb, gashed head, had to go to ER and get 4 mehran. He had those removed 2 weeks ago at . No LOC. Prior to that his had fallen while there and broke her hip, had to have hip replaced and was in a SNF there in [place]. She is walking with a walker and doing exercises at home. 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 LFT: Had CT scan due to elevated [...] Past Histories independently gathered by the clinical is support analyst and the remaining scribed note accurately describes my personal service to the patient. Medical Decision Making: Problems: Moderate: 1+ chronic illnesses with change and 2+ stable chronic illnesses Risk: Moderate: Drug management Medical Decision Making Level: 4 - Moderate Coco Davis MD The documentation for this note was completed by Christal Becerra Ma acting as scribe for Cooc Davis MD. January 08, 2023 10:39 AM. Christal Becerra Ma documented in this encounter [facility] 12-18-2022 Note HNO ID: [id number] Author: Kenroy Simon APRN.NETWORK TECHNICIAN Service: ? Author Type: Nurse Practitioner Type: [...] Date BLEPHAROPLASTY, UPPER EYELID Bilateral 10/25/17 Dr. rEick Miner, medically necessary COLONOSCOPY AND POLYPECTOMY 08/02/2004 [...] mg tablet T (more content not included)... [facility] 12-18-2022 History of Presen t illness Narrative [...] agrees with plan of care. Kenroy Simon APRN.NETWORK TECHNICIAN documented in this encounter [facility] 12-03-2022 Miscellaneous Notes OK to refill as ordered Coco Davis MD PEPPER 10/01/22 NOV 01/08/23 Patient is out of state with his who will be in the hospital for the next few weeks. Please send a short term supply of the medications to the [facility] in [place], [place] on [address]. Pharmacy verified in [facility] Patient has been identified by name and [...] Beatriz Remy Pss documented in this encounter [facility] 10-16-2022 Note HNO ID: [id number] Author: RT Jami(Segundo) Service: ? Author Type: Shell Mold Bonding Machine Operator Type: Progress Notes Filed: 10/16/2022 12:00 PM [...] RT Armando(R) October 16, 2022 11:[address] [facility] 10-16-2022 History of Presen t illness Narrative [...] 2022 11:59 AM documented in this encounter [facility] 10-01-2022 Note HNO ID: [id number] Author: Coco Davis MD Service: ? Author [...] 09/28/2022 112 (A) (more content not included)... [facility] 10-01-2022 History of Presen t illness Narrative [...] 0.80 (A) Monocytes % 09/28/2022 10.8 Abs Pickett 09/28/2022 0.45 Eosinophils % 09/28/2022 4.3 Abs [...] Past Histories independently gathered by the clinical is support analyst and the remaining scribed note accurately describes [...] Christal Becerra Ma documented in this encounter [facility] 09-28-2022 Miscellaneous Notes Orders filed. Adin Sanabria APRN.CNP Pt here to get fasting labs done before appt. Please place orders. Christal Becerra Ma documented in this encounter [facility] documented in this encounter [facility]12-06-2022 History of Present illness Narrative* Coco Davis MD - 06/26/2022 11:20 AM EST Chief Complaint Patient presents with: Follow Up: 1 month HPI Starla Medina is a 82 year old male who presents here today for 1 month follow up. Will be going to [place] for the next several months. He has [...] 1 tablet by mouth once daily. vit A,C,H-Zqbt-Zkxiiu (OCUVITE PRESERVISION) 7,160 unit- 113 mg-100 unit [...] Lymph% 05/18/2022 23.8 Abs Lymph 05/18/2022 1.60 Pickett% 05/18/2022 8.2 Abs Pickett 05/18/2022 0.55 Eosin% 05/18/2022 12.2 Abs Eosin [...] Past Histories independently gathered by the clinical is support analyst and the remaining scribed note accurately describes [...] AM. Christal Becerra Ma [facility] History of Present illness Narrative* Bren [...] 31, 2022 2:46 PM [facility] Miscellaneous Notes* Telephone Encounter - Ashley Ham - 05/25/2022 1:10 PM EDT Ultrasound scheduled. Patient states he will call back in to schedule Physical Therapy another time. * Telephone Encounter - Belkys Ngo Ma - 05/24/2022 4:35 PM EDT Pt sent [employer] message back with information below. Made pt [...] 05/22/22. Belkys Ngo Ma [facility] History of Present illness Narrative* Coco [...] 1 tablet by mouth once daily. vit A,C,B-Cxwn-Prvzvn (OCUVITE PRESERVISION) 7,160 unit- 113 mg-100 unit [...] Lymph% 05/18/2022 23.8 Abs Lymph 05/18/2022 1.60 Pickett% 05/18/2022 8.2 Abs Pickett 05/18/2022 0.55 Eosin% 05/18/2022 12.2 Abs Eosin [...] Past Histories independently gathered by the clinical is support analyst and the remaining scribed note accurately describes [...] AM. Belkys Ngo Ma [facility] Miscellaneous Notes* Telephone Encounter - Belkys Nog Ma - 2022 8:20 AM EDT Please see pt message and advise. Belkys Ngo Ma [facility] Miscellaneous Notes* Telephone Encounter - Belkys Ngo Ma - 03/08/2022 9:25 AM EDT Last Rx: 03/13/21 #90 w/3. Update pt via Darudar once sent. Last OV: 02/12/22 Next OV: 05/22/22 Belkys Ngo Ma [facility] Miscellaneous Notes* Telephone Encounter - Belkys Ngo Ma - 02/13/2022 11:23 AM EDT See pt message regarding Wellbutrin. Belkys Ngo Ma [facility] History of Present illness Narrative* Coco [...] Takes 1 tab every other day. vit A,C,P-Orsy-Zsskwv (OCUVITE PRESERVISION) 7,160 unit- 113 mg-100 unit [...] Lymph% 11/08/2021 19.9 Abs Lymph 11/08/2021 1.04 Pickett% 11/08/2021 8.2 Abs Pickett 11/08/2021 0.43 Eosin% 11/08/2021 6.3 Abs Eosin [...] PANEL 3. Atherosclerosis of coronary artery of [place] heart with angina pectoris, unspecified vessel or [...] Past Histories independently gathered by the clinical is support analyst and the remaining scribed note accurately describes [...] AM. Christal Becerra Ma [facility] Nurse Note* Christal Becerra Ma - [...] Falls and Maintaining Balance documented in [facility] Miscellaneous Notes* Telephone Encounter - Belkys Ngo Ma - 10/30/2021 1:02 PM EDT Pt notified of fasting labs that need completed. Belkys Ngo Ma [facility] History of Past illness Narrative* Problem Noted Date Resolved Date Dermatochalasis of both eyelids 10/25/2017 10/25/2017 documented as of this encounter (statuses as of 10/30/2021) [address] History of Past illness Narrative* Problem Noted Date Resolved Date Dermatochalasis of both eyelids 10/25/2017 10/25/2017 documented as of this encounter (statuses as of 11/13/2021) [address] History of Past illness Narrative* Problem Noted Date Resolved Date Dermatochalasis of both eyelids 10/25/2017 10/25/2017 documented as of this encounter (statuses as of 02/13/2022) [address] History of Past illness Narrative* Problem Noted Date Resolved Date Dermatochalasis of both eyelids 10/25/2017 10/25/2017 documented as of this encounter (statuses as of 03/08/2022) [address] History of Past illness Narrative* Problem Noted Date Resolved Date Dermatochalasis of both eyelids 10/25/2017 10/25/2017 documented as of this encounter (statuses as of 03/27/2022) [address] History of Past illness Narrative* Problem Noted Date Resolved Date Dermatochalasis of both eyelids 10/25/2017 10/25/2017 documented as of this encounter (statuses as of 2022) [address] History of Past illness Narrative* Problem Noted Date Resolved Date Dermatochalasis of both eyelids 10/25/2017 10/25/2017 documented as of this encounter (statuses as of 05/22/2022) [address] History of Past illness Narrative* Problem Noted Date Resolved Date Dermatochalasis of both eyelids 10/25/2017 10/25/2017 documented as of this encounter (statuses as of 05/25/2022) [address] History of Past illness Narrative* Problem Noted Date Resolved Date Dermatochalasis of both eyelids 10/25/2017 10/25/2017 documented as of this encounter (statuses as of 06/26/2022) [address] History of Past illness Narrative* Problem Noted Date Resolved Date Dermatochalasis of both eyelids 10/25/2017 10/25/2017 documented as of this encounter (statuses as of 09/28/2022) [address] History of Past illness Narrative* Problem Noted Date Resolved Date Dermatochalasis of both eyelids 10/25/2017 10/25/2017 documented as of this encounter (statuses as of 10/01/2022) [address] History of Past illness Narrative* Problem Noted Date Resolved Date Dermatochalasis of both eyelids 10/25/2017 10/25/2017 documented as of this encounter (statuses as of 12/04/2022) [address] History of Past illness Narrative* Problem Noted Date Resolved Date Dermatochalasis of both eyelids 10/25/2017 10/25/2017 documented as of this encounter (statuses as of 12/19/2022) [address] History of Past illness Narrative* Problem Noted Date Resolved Date Dermatochalasis of both eyelids 10/25/2017 10/25/2017 documented as of this encounter (statuses as of 01/08/2023) [address] History of Past illness Narrative* Problem Noted Date Diagnosed Date Resolved Date Dermatochalasis of both eyelids 10/25/2017 10/25/2017 Chronic kidney disease, stage III (moderate) 8 02/12/2023 Overview: Calc GFR = 48 ml/min, 608. documented as of this encounter (statuses as of 05/16/2023) [address]2018 History of Past illness Narrative* Problem Noted Date Diagnosed Date Resolved Date Dermatochalasis of both eyelids 10/25/2017 10/25/2017 Chronic kidney disease, stage III (moderate) 8 02/12/2023 Overview: Calc GFR = 48 ml/min, 6/08. documented as of this encounter (statuses as of 05/26/2023) [address] History of Past illness Narrative* Problem Noted Date Diagnosed Date Resolved Date Dermatochalasis of both eyelids 10/25/2017 10/25/2017 Chronic kidney disease, stage III (moderate) 8 02/12/2023 Overview: Calc GFR = 48 ml/min, 12/27. documented as of this encounter (statuses as of 05/26/2023) [facility]04-06-2018 History of Past illness Narrative* Problem Noted Date Diagnosed Date Resolved Date Dermatochalasis of both eyelids 10/25/2017 10/25/2017 Chronic kidney disease, stage III (moderate) 8 02/12/2023 Overview: Calc GFR = 48 ml/min, 12/27. documented as of this encounter (statuses as of 05/26/2023) [facility] Diagnosis Essential hypertension, benign- Primary Mixed hyperlipidemia Atherosclerosis of coronary artery of [place] heart with angina pectoris, unspecified vessel or lesion type (HCC) Thrombocytopenia (HCC) Thrombocytopenia, unspecified Impaired fasting glucose Elevated LFTs Other abnormal blood chemistry RLS (restless legs syndrome) Restless legs syndrome (RLS) documented [facility] this encounter [facility] Diagnosis Essential hypertension, benign [facility] Diagnosis Mixed hyperlipidemia BPH (benign prostatic hyperplasia) Unspecified hyperplasia of prostate without urinary obstruction and other lower urinary tract symptoms (LUTS) documented [facility] Diagnosis Essential hypertension, benign- Primary Mixed [...] and myositis, unspecified [facility] Diagnosis Abdominal aortic aneurysm (AAA) without rupture, unspecified part- Primary Chronic midline low back pain, unspecified whether sciatica present [facility] Diagnosis Anxiety with depression- Primary Balance problem Other symptoms involving nervous and musculoskeletal systems Abdominal aortic aneurysm (AAA) without rupture, unspecified part Essential hypertension, benign Stage 3 chronic kidney disease, unspecified whether stage 3a or 3b CKD (HCC) Thrombocytopenia (HCC) Thrombocytopenia, unspecified [facility] Diagnosis Essential hypertension, benign- Primary Anxiety with depression Thrombocytopenia (HCC) Thrombocytopenia, unspecified Mixed hyperlipidemia Elevated LFTs Other abnormal blood chemistry Cirrhosis, 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 [facility] Diagnosis Essential hypertension, benign BPH (benign prostatic hyperplasia) Unspecified hyperplasia of prostate without urinary obstruction and other lower urinary tract symptoms (LUTS) Mixed hyperlipidemia [facility] Diagnosis Encounter for staple removal- Primary Encounter for removal of sutures documented [facility] this [facility] Diagnosis Essential hypertension, benign- Primary Mixed hyperlipidemia Anxiety with depression Benign prostatic hyperplasia without lower urinary tract symptoms Impaired fasting glucose Abdominal aortic aneurysm (AAA) without rupture, unspecified part (HCC) Atherosclerosis of coronary artery of [place] heart with angina pectoris, unspecified vessel or lesion type (HCC) [facility] Diagnosis Essential hypertension, benign- Primary Need [...] (HCC) Thrombocytopenia, unspecified [facility] Diagnosis Elevated LFTs Other abnormal blood chemistry Cirrhosis, 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 [facility] Diagnosis Abdominal aortic aneurysm (AAA) without rupture, unspecified part (HCC) documented in this encounter [facility] for referral (narrative)* Diagnostic Procedure Only (Routine) - Closed Specialty Diagnoses / Procedures Referred By Contac t Referred To Contact XR IMAGING Diagnoses Chronic midline low back pain, unspecified whether sciatica present Procedures XR LUMBAR GENERAL 3V AP/LAT/L5-S1 RADEX SPINE LUMBOSACRAL 2/3 VIEWS Coco Davis MD [address] [place] [address] Xr Imaging Referral ID Status Reason Start Date Expiration Date V isits Requested Visits Authorized [id number] Closed Auto-Generate d Referral 05/22/2022 06/21/2023 1 1 [facility] Diagnostic Procedure Only (Routine) - Closed Specialty Diagnoses / Procedures Referred By Contac t Referred To Contact US IMAGING Diagnoses Abdominal aortic aneurysm (AAA) without rupture, unspecified part (HCC) Procedures US SCREENING FOR AAA (2017) US ABDOMINAL AORTA REAL TIME SCREEN STUDY AAA Coco Davis MD [address] [place] [address] [place] [address] Referral ID Status Reason Start Date Expiration Date V isits Requested Visits Authorized [id number] Closed Auto-Generate d Referral 05/24/2022 06/23/2023 1 1 [facility] Summary Purpose Family History No Family History Records FoundNo Family History Records Found Advance Directives No Advanced Directives Records FoundDocuments on File Type Date Recorded Patient [employer] Expl anation Advance Directive(s) 10/25/2017 11:37 AM Reason for Referral Specialty Diagnoses / Procedures Referred By Contac t Referred To Contact [facility] Diagnoses Chronic midline low back pain, unspecified whether sciatica present Procedures CONSULT TO PHYSICAL THERAPY PHYSICAL THERAPY EVALUATION HIGH COMPLEX 45 MINS Coco Davis MD [address] [place] [address] [facility] [place] [address] [place] [address] Referral ID Status Reason Start Date Expiration Date Visits Requested Visits Authorized [id number] Authorized PCP Requested Referral Auto-Generate d Referral 05/24/2022 05/24/2023 99 99 Specialty Diagnoses / Procedures Referred By Contac t Referred To Contact US IMAGING Diagnoses Abdominal aortic aneurysm (AAA) without rupture, unspecified part Procedures US SCREENING FOR AAA (2017) US ABDOMINAL AORTA REAL TIME SCREEN STUDY AAA Coco Davis MD [address] [place] [address] Us Imaging Referral ID Status Reason Start Date Expiration Date Visits Requested Visits Authorized [id number] Authorized Auto-Generat ed Referral 05/24/2022 06/23/2023 1 1 Specialty Diagnoses / Procedures Referred By Contac t Referred To Contact CT IMAGING Diagnoses Elevated LFTs Cirrhosis, nonalcoholic (HCC) Procedures CT ABD/PEL WO IVCON CT ABD & PELVIS W/O CONTRAST Coco Davis MD [address] [place] [address] Ct Imaging Referral ID Status Reason Start Date Expiration Date Visits Requested Visits Authorized [id number] Authorized Auto-Generat ed Referral 10/01/2022 10/31/2023 1 1 Specialty Diagnoses / Procedures Referred By Contac t Referred To Contact Gastroenterology Diagnoses Elevated LFTs Cirrhosis, nonalcoholic (HCC) Procedures CONSULT TO GASTROENTEROLOGY OFFICE/OUTPATIENT [facility] MDM 60-74 MINUTES Coco Davis MD [address] [place] [address] Referral ID Status Reason Start Date Expiration Date Visits Requested Visits Authorized [id number] Authorized PCP Requested Referral 05/15/2024 1 1 Specialty Diagnoses / Procedures Referred By Contac t Referred To Contact CT IMAGING Diagnoses Elevated LFTs Cirrhosis, nonalcoholic (HCC) Procedures CT ABD/PEL WO IVCON CT ABD & PELVIS W/O CONTRAST Coco Dvais MD [address] [place] [address] [place] [address] Referral ID Status Reason Start Date Expiration Date V isits Requested Visits Authorized [id number] Closed Auto-Generate d Referral 10/01/2022 10/31/2023 1 1 Additional Source Comments (unrecognized sect ion and content) No Status Records FoundNo Status Records Found INFORMATION SOURCE (unrecogn ized section and content) DATE CREATED AUTHOR AUTHOR'S ORGANIZ ATION 07/12/[address] [facility] Source Comments (unrecognize d section and content) In the event this informatio n is protected by the Federal Confidentiality of Alcohol and Drug Abuse Patient Records regulations: The Federal rules restrict any use of the information to criminally investigate or prosecute any alcohol or drug abuse patient.[facility] the event this information is protected by the Federal Confidentiality of Alcohol and Drug Abuse Patient Records regulations: The Federal rules restrict any use of the information to criminally investigate or prosecute any alcohol or drug abuse patient.[facility] the event this information is protected by the Federal Confidentiality of Alcohol and Drug Abuse Patient Records regulations: The Federal rules restrict any use of the information to criminally investigate or prosecute any alcohol or drug abuse patient.[facility] the event this information is protected by the Federal Confidentiality of Alcohol and Drug Abuse Patient Records regulations: The Federal rules restrict any use of the information to criminally investigate or prosecute any alcohol or drug abuse patient.[facility] the event this information is protected by the Federal Confidentiality of Alcohol and Drug Abuse Patient Records regulations: The Federal rules restrict any use of the information to criminally investigate or prosecute any alcohol or drug abuse patient.[facility] the event this information is protected by the Federal Confidentiality of Alcohol and Drug Abuse Patient Records regulations: The Federal rules restrict any use of the information to criminally investigate or prosecute any alcohol or drug abuse patient.[facility] the event this information is protected by the Federal Confidentiality of Alcohol and Drug Abuse Patient Records regulations: The Federal rules restrict any use of the information to criminally investigate or prosecute any alcohol or drug abuse patient.[facility] the event this information is protected by the Federal Confidentiality of Alcohol and Drug Abuse Patient Records regulations: The Federal rules restrict any use of the information to criminally investigate or prosecute any alcohol or drug abuse patient.[facility] the event this information is protected by the Federal Confidentiality of Alcohol and Drug Abuse Patient Records regulations: The Federal rules restrict any use of the information to criminally investigate or prosecute any alcohol or drug abuse patient.[facility] the event this information is protected by the Federal Confidentiality of Alcohol and Drug Abuse Patient Records regulations: The Federal rules restrict any use of the information to criminally investigate or prosecute any alcohol or drug abuse patient.[facility] the event this information is protected by the Federal Confidentiality of Alcohol and Drug Abuse Patient Records regulations: The Federal rules restrict any use of the information to criminally investigate or prosecute any alcohol or drug abuse patient.[facility] the event this information is protected by the Federal Confidentiality of Alcohol and Drug Abuse Patient Records regulations: The Federal rules restrict any use of the information to criminally investigate or prosecute any alcohol or drug abuse patient.[facility] the event this information is protected by the Federal Confidentiality of Alcohol and Drug Abuse Patient Records regulations: The Federal rules restrict any use of the information to criminally investigate or prosecute any alcohol or drug abuse patient.[facility] the event this information is protected by the Federal Confidentiality of Alcohol and Drug Abuse Patient Records regulations: The Federal rules restrict any use of the information to criminally investigate or prosecute any alcohol or drug abuse patient.[facility] the event this information is protected by the Federal Confidentiality of Alcohol and Drug Abuse Patient Records regulations: The Federal rules restrict any use of the information to criminally investigate or prosecute any alcohol or drug abuse patient.[facility] the event this information is protected by the Federal Confidentiality of Alcohol and Drug Abuse Patient Records regulations: The Federal rules restrict any use of the information to criminally investigate or prosecute any alcohol or drug abuse patient.[facility] the event this information is protected by the Federal Confidentiality of Alcohol and Drug Abuse Patient Records regulations: The Federal rules restrict any use of the information to criminally investigate or prosecute any alcohol or drug abuse patient.[facility] the event this information is protected by the Federal Confidentiality of Alcohol and Drug Abuse Patient Records regulations: The Federal rules restrict any use of the information to criminally investigate or prosecute any alcohol or drug abuse patient.[facility] Care Teams (unrecognized sec tion and content) Lumber Hacker Relationship Specialty Start Date End Date Coco Davis MD [address] [place], [place] [id number] PCP - General Family Practice 04/18/15 Lumber Hacker Relationship Specialty Start Date End Date Coco Davis MD [address] [place] [address] PCP - General Family Practice 04/18/15 Lumber Hacker Relationship Specialty Start Date End Date Coco Davis MD [address] [place] [address] PCP - General Family Practice 04/18/15 Lumber Hacker Relationship Specialty Start Date End Date Coco Davis MD [address] [place] [address] PCP - General Family Practice 04/18/15 Lumber Hacker Relationship Specialty Start Date End Date Coco Davis MD [address] [facility] [place] [address] PCP - General Family Medicine 04/18/15 Lumber Hacker Relationship Specialty Start Date End Date Coco Davis MD [address] [facility] [place] [address] PCP - General Family Medicine 04/18/15 Lumber Hacker Relationship Specialty Start Date End Date Coco Davis MD [address] [facility] [place] [address] PCP - General Family Medicine 04/18/15 Lumber Hacker Relationship Specialty Start Date End Date Coco Davis MD [address] [facility] [place] [address] PCP - General Family Medicine 04/18/15 Lumber Hacker Relationship Specialty Start Date End Date Coco Davis MD [address] [facility] [place] [address] PCP - General Family Medicine 04/18/15 Lumber Hacker Relationship Specialty Start Date End Date Coco Davis MD [address] [facility] [place] [address] PCP - General Family Medicine 04/18/15 Lumber Hacker Relationship Specialty Start Date End Date Coco Davis MD [address] [facility] [place] [address] PCP - General Family Medicine 04/18/15 Lumber Hacker Relationship Specialty Start Date End Date Coco Davis MD [address] [facility] [place] [address] PCP - General Family Medicine 04/18/15 Lumber Hacker Relationship Specialty Start Date End Date Coco Davis MD [address] [place], [place] [id number] PCP - General Family Medicine 04/18/15 Lumber Hacker Relationship Specialty Start Date End Date Coco Davis MD [address] [place], [place] [id number] PCP - General Family Medicine 04/18/15 Lumber Hacker Relationship Specialty Start Date End Date Coco Davis MD [address] [place], [place] [id number] PCP - General [facility] Medicine 04/18/15 Lumber Hacker Relationship Specialty Start Date End Date Coco Davis MD [address] [place], [place] [id number] PCP - General Family Medicine 04/18/15 Reason for Visit (unrecogniz ed section and content) Specialty Diagnoses / Procedures Referred By Contac t Referred To Contact CT IMAGING Diagnoses Elevated LFTs Cirrhosis, nonalcoholic (HCC) Procedures CT ABD/PEL WO IVCON CT ABD & PELVIS W/O CONTRAST Coco Davis MD [address] [place] [address] [place] [address] Referral ID Status Reason Start Date Expiration Date V isits Requested Visits Authorized [id number] Closed Auto-Generate d Referral 10/01/2022 10/31/2023 1 [...] TIME SCREEN STUDY AAA Coco Davis MD [address] [place] [address] [place] [address] Referral ID Status Reason Start Date Expiration Date V isits Requested Visits Authorized [id number] Closed Auto-Generate d Referral 05/24/2022 06/23/2023 1 [...] BE BASED ON THE PRIMARY CLINICAL RECORDS. [employer] provides no warranty or guarantee of the accuracy or completeness of information in this document.
[2023-08-01] MEDS: Sodium Bicarbonate 150 MEQ in Dextrose 5%-Water (1000mL Bag) 1,000 ML 250 MEQ IV (20:24)
[2023-08-01] MEDS: Dextrose 10%-Water 250 ML 40 ML IV (20:25)
[2023-08-01] MEDS: Sodium Polystyrene Sulfonate 15 GM/60 ML UDC 30 GM PO (20:33)
--- NOTE | 2023-08-01 21:00 | ED.RN ---
While patient receiving Calcium, patient c/o upper back pain. Family in room asked if this was the same as the pain he had at home, which he verified. At same time of event, patient was noted to have HR at 91 which then dropped to 57 during the event of back pain. HR did come back up and was noted to be sinus the entire time. This nurse located Dr. Folres, who was admitting and notified her of event. She asked for the initial EKG and was given it and also she stated to continue to watch and if another episode happened there would be consideration for troponin levels. Dr. Albarran was not found to notify and patient was going to ICU under [facility] care.
[2023-08-01] MEDS: Tamsulosin HCl 0.4 MG Capsule 0.400000000000000022 MG PO (21:43)
[2023-08-01] MEDS: Benzonatate 100 MG Capsule PO (21:43)
[2023-08-01] MEDS: CLARIFY ORDER 1 EACH NOTE (21:52)
[2023-08-01 23:42] LABS: Bedside Glucose 166 mg/dL (74-106)
[2023-08-01 23:53] LABS: Anion Gap 7 (5-15); BUN 112 mg/dL (7-18); BUN/Creat Ratio 33.6 RATIO (10-20); Calcium,Total 9.9 mg/dL (8.5-10.1); Chloride 118 mmol/L (98-107); Creatinine, Serum 3.33 mg/dL (0.70-1.30); EST Glomerular Filtration Rate 19 mL/min (>60); Est Glom Filt Rate - Afr Amer 23 mL/min (>60); Estimated Creatinine Clearance 15.98 ml/min; Glucose 191 mg/dL (74-106); Sodium Level 141 mmol/L (136-145)
[2023-08-02] VITALS (16 sets, daily range): BP systolic 88–116; BP diastolic 51–80; PULSE 59–82; RESP 16–22; TEMP 36.2–37.1; O2SAT 93–97; BMI 24.5
[2023-08-02] MEDS: Sodium Bicarbonate 150 MEQ in Dextrose 5%-Water (1000mL Bag) 1,000 ML 250 MEQ IV ×5 (01:15→19:53)
[2023-08-02 05:05] LABS: Absolute Lymphocyte Count 1.22 X10^3/uL (0.83-4.51); Absolute Neutrophil Count 4.1 X10^3/uL (2.0-7.7); Basophil# 0.02 X10^3/uL; Basophil% 0.3 % (0-1); Eosinophil# 0.09 X10^3/uL; Eosinophils% 1.5 % (0-5); Hematocrit 32.9 % (40-54); Hemoglobin 11.3 g/dL (13.0-16.5); Lymphocyte # 1.22 X10^3/ul (0.83-4.51); Lymphocyte % 20.5 % (19-41); Mean Corp Hgb Conc 34.3 g/dL (32-36); Mean Corpuscular Hgb 32.8 pg (27.0-32.0); Mean Corpuscular Volume 95.4 fL (80-94); Mean Platelet Vol. 9.7 fl (6.2-12.0); Monocyte# 0.48 X10^3/uL; Monocyte% 8.1 % (0-10); NRBC Flagged by Analyzer 0 % (0-5); Neutrophil # 4.11 X10^3/uL (2.7-7.7); Neutrophil % 69.3 % (47-70); POSITIVE COUNT YES; Platelet Count 60 K/mm3 (150-450); RBC Distribution Width CV 13.6 % (11.6-14.6); RBC Distribution Width SD 47.5 fl (35.1-43.9); Red Blood Count 3.45 M/mm3 (4.6-6.2); White Blood Count 5.9 K/mm3 (4.4-11.0)
[2023-08-02 05:22] LABS: ALB/GLOB Ratio 0.6 RATIO (0.9-2.4); AST(SGOT) 38 U/L (15-37); Alanine Aminotransfer ALT/SGPT 38 U/L (16-61); Albumin, Serum 2.4 g/dL (3.2-5.0); Alkaline Phosphatase 163 U/L (45-117); Anion Gap 8 (5-15); BUN 97 mg/dL (7-18); BUN/Creat Ratio 36.1 RATIO (10-20); Calcium,Total 9.2 mg/dL (8.5-10.1); Chloride 114 mmol/L (98-107); Creatinine, Serum 2.69 mg/dL (0.70-1.30); EST Glomerular Filtration Rate 24 mL/min (>60); Est Glom Filt Rate - Afr Amer 29 mL/min (>60); Estimated Creatinine Clearance 19.78 ml/min; Globulin 3.8 g/dL (2.2-4.2); Glucose 145 mg/dL (74-106); Potassium 5.4 mmol/L (3.5-5.1); Protein, Total 6.2 g/dL (6.4-8.2); Sodium Level 141 mmol/L (136-145)
[2023-08-02 05:51] LABS: Differential Comment SCANNED; Differential Indicated SCAN CRITERIA MET
[2023-08-02] MEDS: 0.9% Normal Saline (1000mL) 1,000 ML 150 ML IV (06:14)
[2023-08-02] MEDS: Benzonatate 100 MG Capsule PO ×3 (06:15→20:32)
--- NOTE | 2023-08-02 08:05 | PN.HOSP_ITS ---
Reason for Visit Reason for Visit: Diagnoses Dehydration (08/01/23) Hyperkalemia (08/01/23) Hypotension, unspecified (08/01/23) Acute kidney failure, unspecified (08/01/23) Personal history of other diseases of the digestive system (08/01/23) Subjective Subjective Patient is an 83-year-old gentleman who presented with progressive generalized weakness. Patient was diagnosed with acute kidney injury with significant hyperkalemia. Admitted to the intensive care unit for subsequent management Objective Data Objective Data Vital Signs: Vital Signs Temp Pulse Resp BP Pulse Ox O2 Del Method 97.8 F 59 L 18 101/52 L 95 Room Air 08/02/23 04:00 08/02/23 07:00 08/02/23 07:00 08/02/23 07:00 08/02/23 07:00 08/02/23 07:00 Oxygen Delivery Method Room Air Weight: 73.2 kg Body Mass Index (BMI) 24.5 Intake & Output: Intake and Output for Last 24 Hours 07/31/23 08/01/23 08/02/23 23:59 23:59 23:59 Intake Total 2030 / 2030 3550 / 3550 Output Total 500 / 850 1000 / 1000 Balance 1530 / 1180 2550 / 2550 Lab / Micro Data 08/02/23 04:45 08/02/23 04:45 Labs: Laboratory Results - last 24 hr 08/01/23 17:32: WBC 10.2, RBC 4.39 L, Hgb 14.5, Hct 43.9, MCV 100.0 H, MCH 33.0 H, MCHC 33.0, RDW Std Deviation 50.8 H, RDW Coeff of Randi 13.9, Plt Count 119 L, MPV 10.3, Immature Gran % (Auto) 0.600, Neut % (Auto) 75.1 H, Lymph % (Auto) 14.9 L, Boyd % (Auto) 7.9, Eos % (Auto) 1.0, Baso % (Auto) 0.5, Absolute Neuts (auto) 7.7, Absolute Lymphs (auto) 1.52, Nucleated RBC % 0, PT 16.5 H, INR 1.3, APTT 33.4, Sodium 138, Potassium 7.3 H*, Chloride 116 H, Carbon Dioxide 14.0 L, Anion Gap 8, BUN 120 H*, Creatinine 3.74 H, Estim Creat Clear Calc 14.22, Est GFR (MDRD) Af Amer 20 L, Est GFR (MDRD) Non-Af 17 L, BUN/Creatinine Ratio 32.1 H , Glucose 90, Calcium 10.6 H, Total Bilirubin 1.20 H, AST 42 H, ALT 49, Alkaline Phosphatase 233 H, Troponin I High Sens 22, Total Protein 8.4 H, Albumin 3.2, Globulin 5.2 H, Albumin/Globulin Ratio 0.6 L 08/01/23 17:45: Lactic Acid 1.5, Blood Type A POSITIVE, Antibody Screen NEGATIVE 08/01/23 18:30: Urine Color Yellow, Urine Clarity Clear, Urine pH 5.0, Ur Specific [place] 1.010, Urine Protein Negative, Urine Glucose (UA) Normal, Urine Ketones Negative, Urine Occult Blood Negative, Urine Nitrite Negative, Urine Bilirubin Negative, Urine Urobilinogen Normal, Ur Leukocyte Esterase Negative, Urine RBC 0 SEEN, Urine WBC 0 SEEN, Ur Squamous Epith Cells 0-5 SEEN, Urine Vimal teria 0 SEEN, Urine Mucus 0 SEEN 08/01/23 23:20: Sodium 141, Potassium 6.0 H*, Chloride 118 H, Carbon Dioxide 16.0 L, Anion Gap 7, BUN 112 H*, Creatinine 3.33 H, Estim Creat Clear Calc 15.98, Est GFR (MDRD) Af Amer 23 L, Est GFR (MDRD) Non-Af 19 L, BUN/Creatinine Ratio 33.6 H, Glucose 191 H, Calcium 9.9 08/01/23 23:23: POC Glucose 166 H 08/02/23 04:45: WBC 5.9, RBC 3.45 L, Hgb 11.3 L, Hct 32.9 L, MCV 95.4 H, MCH 32.8 H, MCHC 34.3, RDW Std Deviation 47.5 H, RDW Coeff of Randi 13.6, Plt Count 60 L, MPV 9.7, Immature Gran % (Auto) 0.300, Neut % (Auto) 69.3, Lymph % (Auto) 20.5, Boyd % (Auto) 8.1, Eos % (Auto) 1.5, Baso % (Auto) 0.3, Absolute Neuts (auto) 4.1, Absolute Lymphs (auto) 1.22, Nucleated RBC % 0, Differential Comment SCANNED, Sodium 141, Potassium 5.4 H, Chloride 114 H, Carbon Dioxide 19.0 L, Anion Gap 8, BUN 97 H, Creatinine 2.69 H, Estim Creat Clear Calc 19.78, Est GFR (MDRD) Af Amer 29 L, Est GFR (MDRD) Non-Af 24 L, BUN/Creatinine Ratio 36.1 H, Glucose 145 H, Calcium 9.2, Total Bilirubin 1.00, AST 38 H, ALT 38, Alkaline Phosphatase 163 H, Total Protein 6.2 L, Albumin 2.4 L, Globulin 3.8, Albumin/Globulin Ratio 0.6 L Micro: Microbiology 08/02/23 02:45 Stool Stool Occult Blood (JOSE M) - Final Occult Blood Positive 08/01/23 18:30 Mucosa - Nose SARS-CoV-2, Influenza & RSV (PCR) - Final Radiography Diagnostic Testing: Radiology Impression Chest X-Ray 08/01/23 17:55 IMPRESSION: No acute cardiopulmonary disease. Electronically Signed: Rogelio Awad MD at 18:08 EST , Rhythm Strip Rhythm Strip: Sinus Rhythm Rate: 52 Ectopy: None Physical Exam Narrative GENERAL: cooperative HEENT: Atraumatic; normocephalic EYES; Anicteric, Normal Conjunctiva NECK; supple, normal thyroid, RESPIRATORY: Diminished to auscultation CARDIOVASCULAR: Regular S1 S2, GI: soft, normoactive bowel sounds, : No Renal angle tenderness; EXTREMITIES: No edema, no clubbing, MUSCULOSKELETAL: no muscle wasting NEURO: Awake; no lateralizing signs. SKIN: No Rash PSYCH; Flat affect Assessment & Plan Assessment/Plan (1) Acute hyperkalemia: (2) Acute kidney failure: (3) Acute dehydration: (4) Acute hypotension: (5) History of cirrhosis: PLAN: Plan Patient is an 83-year-old gentleman who presented with progressive generalized weakness. Patient was diagnosed with acute kidney injury with significant hyperkalemia. Admitted to the intensive care unit for subsequent management 1. Acute kidney injury ? Secondary to diuretic use. Baseline creatinine 1.2 creatinine on admission was 3.74 suspected offending medications held patient started on IV rehydration with subsequent monitoring of electrolytes ordered 2. Hyperkalemia ? Potassium on admission was 7.3 patient did receive Kayexalate. Patient is on potassium sparing diuretics held 3. Essential hypertension ? Patient is on amlodipine as well as valsartan, held in view of impaired kidney function and hyperkalemia 4. BPH with lower urinary obstructive symptoms - Patient treated with tamsulosin 5. Depression ? Patient is on escitalopram did continue 6. Restless leg syndrome ? Patient is on ropinirole at night 7. Dyslipidemia -Patient is on statin therapy, continued at home dose 8. Nonion gap metabolic acidosis ? Secondary to KYAW do expect improvement with improvement in his kidney function 9. Cirrhosis of the liver ? Patient is on Aldactone as well as furosemide held in view of his acute kidney injury and hyperkalemia 10. Physical deconditioning - Requested for PT OT eval and social media marketing analyst to assist with discharge planning 11. DVT prophylaxis ? SC heparin Time spent in the patient's overall evaluation,decision-making process, review of diagnostic data, adjustment of management, discussion with other providers, nursing nursing and ancillary staff involved in patient's care documentation, 55 Minutes Charges/Coding Visit Charges Inpatient E&M: 54747 [facility] Hosp L3
--- NOTE | 2023-08-02 09:04 | CON.PCM.RE_ITS ---
Documented by User: UADELIA Whiting 08/02/23 09:21 Assessment & Plan Assessment/Plan (1) Acute hyperkalemia: (2) Acute kidney failure: (3) Acute hypotension: PLAN: Plan This is an 83-year-old male with past medical history significant for BPH, hypertension, cirrhosis and esophageal varices who presented to emergency room yesterday with complaints of weakness. Lab work revealed potassium 7.3, bicarb 14, creatinine 3.7. Nephrology consulted. 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 In reviewing past serum creatinine trends baseline serum creatinine around 1.20 mg/dL as of June 2023. On admission serum creatinine 3.74 and today serum creatinine improved to 2.69 mg/dL. Patient is nonoliguric. Volume status appears to be mildly hypovolemic. Patient is on IV fluids. To note he was significantly hypotensive on presentation to the emergency room, his blood pressure was 83/36. Blood pressures are slowly improving. Likely prerenal KYAW multifactorial from hypotension with poor renal perfusion and significant volume depletion (~30lb wt loss over few weeks) with concurrent Lasix, Aldactone and valsartan. Likely hyperkalemia from KYAW, valsartan and Aldactone and also dietary indiscretion. Overall renal function is improving. Potassium trends have improved with medications that were given in the emergency room which included calcium gluconate, insulin, D50, Kayexalate and started on bicarb drip. Potassium was 7.3 on admission, currently 5.4. Reviewed with patient foods to avoid over next few days that are potassium rich. Blood pressures are improving with volume expansion, patient is off antihypertensives, currently on IV fluids. Patient is nonoliguric. At this time there is no acute indication for MULE DEVELOPER. Bicarb levels have improved, on admission bicarb was 14 and improved to 19 this morning. Recommend to continue supportive care. We will obtain renal ultrasound (to note patient had abdominal CT in June 2023 which showed multiple bilateral renal cysts, prominent cortical scarring of left kidney). Urinalysis was negative for WBC, blood or protein. Further orders forthcoming as hospitalization evolves, thank for allowing us participate in the care of Mr. Gale HPI Consult Data Date of Consult: 08/02/23 HPI Narrative HPI Narrative: STARLA GALE, is a 83 M with past medical history significant for hypertension, BPH, cirrhosis and esophageal varices who presented to the emergency room last evening with complaints of weakness. Workup in the emergency room revealed potassium of 7.3, bicarb 14, serum creatinine 3.7, chest x-ray no acute cardi opulmonary process. Patient was admitted to ICU for further evaluation and treatment. Nephrology consulted for hyperkalemia and KYAW. Patient reports he was recently placed on diuretics due to significant swelling and weight gain. Patient reports that he lost around 30 pounds and over the past few weeks appetite has been very poor with nausea. Reports had not really been eating any solid food but has been taking some fluids including orange juice. Denies any diarrhea. Denies any urinary habitus changes. Denies any NSAIDs [facility] Medical History Anemia due to gastrointestinal blood loss Bleeding external hemorrhoids BPH (benign prostatic hyperplasia) Bruising Depression Former smoker High cholesterol History of COVID-19 History of diverticulitis History of stress test Hx of fracture of rib Hypertension Macular degeneration Pilonidal cyst Prostate disease Restless legs Wears dentures Home Medications amlodipine 5 mg tablet 5 mg PO DAILY HTN 03/09/21 [History Last Taken 03/23/21] finasteride 5 mg tablet 5 mg PO DAILY BPH 03/09/21 [History Last Taken 03/09/21] ropinirole 0.25 mg tablet 0.25 mg PO PRN PRN restless legs 03/09/21 [History Last Taken Unknown] rosuvastatin 10 mg tablet 10 mg PO QODAY cholesterol 03/09/21 [History Last Taken 03/08/21] tamsulosin 0.4 mg capsule 0.4 mg PO BID BPH 03/09/21 [History Last Taken ] valsartan 80 mg tablet 80 mg PO DAILY HTN 03/09/21 [History Last Taken 03/09/21] benzonatate 100 mg capsule 100 mg PO TID 08/01/23 [History Last Taken Unknown] escitalopram oxalate 5 mg tablet 5 mg PO DAILY 08/01/23 [History Last Taken Unknown] furosemide 40 mg tablet 40 mg PO DAILY 08/01/23 [History Last Taken Unknown] nitroglycerin 0.4 mg sublingual tablet 0.4 mg sublingual Q5M 08/01/23 [History Last Taken Unknown] spironolactone 50 mg tablet 50 mg PO DAILY 08/01/23 [History Last Taken Unknown] Allergy/AdvReac Type Severity Reaction Status Date / Time amoxicillin [From Augmentin] Allergy Other Verified 08/01/23 16:54 clavulanic acid Allergy Other Verified 08/01/23 16:54 [From Augmentin] lisinopril AdvReac Other Verified 08/01/23 16:54 Family History Mother Cancer Sister Cancer Other Heart disease Surgical History History of cataract surgery History of excision of pilonidal cyst History of herniorrhaphy Social History household members: none Smoking Status: Former smoker alcohol intake: current alcohol intake frequency: other substance use type: does not use ROS ROS Narrative As in HPI and past medical history Physical Exam Narrative Alert and orient x 3, no apparent distress S1, S2, RRR Lung sounds clear anteriorly and posteriorly. No wheezes, rhonchi rales noted Abdomen soft, nontender No edema Indwelling Briseno with clear yellow urine in bag Lab / Micro Data 08/02/23 04:45 08/02/23 12:50 Labs: Laboratory Results - last 24 hr 08/01/23 17:32: WBC 10.2, RBC 4.39 L, Hgb 14.5, Hct 43.9, MCV 100.0 H, MCH 33.0 H, MCHC 33.0, RDW Std Deviation 50.8 H, RDW Coeff of Randi 13.9, Plt Count 119 L, MPV 10.3, Immature Gran % (Auto) 0.600, Neut % (Auto) 75.1 H, Lymph % (Auto) 14.9 L, [place] % (Auto) 7.9, Eos % (Auto) 1.0, Baso % (Auto) 0.5, Absolute Neuts (auto) 7.7, Absolute Lymphs (auto) 1.52, Nucleated RBC % 0, PT 16.5 H, INR 1.3, APTT 33.4, Sodium 138, Potassium 7.3 H*, Chloride 116 H, Carbon Dioxide 14.0 L, Anion Gap 8, BUN 120 H*, Creatinine 3.74 H, Estim Creat Clear Calc 14.22, Est GFR (MDRD) Af Amer 20 L, Est GFR (MDRD) Non-Af 17 L, BUN/Creatinine Ratio 32.1 H , Glucose 90, Calcium 10.6 H, Total Bilirubin 1.20 H, AST 42 H, ALT 49, Alkaline Phosphatase 233 H, Troponin I High Sens 22, Total Protein 8.4 H, Albumin 3.2, Globulin 5.2 H, Albumin/Globulin Ratio 0.6 L 08/01/23 17:45: Lactic Acid 1.5, Blood Type A POSITIVE, Antibody Screen NEGATIVE 08/01/23 18:30: Urine Color Yellow, Urine Clarity Clear, Urine pH 5.0, Ur Specific Silva 1.010, Urine Protein Negative, Urine Glucose (UA) Normal, Urine Ketones Negative, Urine Occult Blood Negative, Urine Nitrite Negative, Urine Bilirubin Negative, Urine Urobilinogen Normal, Ur Leukocyte Esterase Negative, Urine RBC 0 SEEN, Urine WBC 0 SEEN, Ur Squamous Epith Cells 0-5 SEEN, Urine Bacteria 0 SEEN, Urine Mucus 0 SEEN 08/01/23 23:20: Sodium 141, Potassium 6.0 H*, Chloride 118 H, Carbon Dioxide 16.0 L, Anion Gap 7, BUN 112 H*, Creatinine 3.33 H, Estim Creat Clear Calc 15.98, Est GFR (MDRD) Af Amer 23 L, Est GFR (MDRD) Non-Af 19 L, BUN/Creatinine Ratio 33.6 H, Glucose 191 H, Calcium 9.9 08/01/23 23:23: POC Glucose 166 H 08/02/23 04:45: WBC 5.9, RBC 3.45 L, Hgb 11.3 L, Hct 32.9 L, MCV 95.4 H, MCH 32.8 H, MCHC 34.3, RDW Std Deviation 47.5 H, RDW Coeff of Randi 13.6, Plt Count 60 L, MPV 9.7, Immature Gran % (Auto) 0.300, Neut % (Auto) 69.3, Lymph % (Auto) 2 0.5, [place] % (Auto) 8.1, Eos % (Auto) 1.5, Baso % (Auto) 0.3, Absolute Neuts (auto) 4.1, Absolute Lymphs (auto) 1.22, Nucleated RBC % 0, Differential Comment SCANNED, Sodium 141, Potassium 5.4 H, Chloride 114 H, Carbon Dioxide 19.0 L, Anion Gap 8, BUN 97 H, Creatinine 2.69 H, Estim Creat Clear Calc 19.78, Est GFR (MDRD) Af Amer 29 L, Est GFR (MDRD) Non-Af 24 L, BUN/Creatinine Ratio 36.1 H, Glucose 145 H, Calcium 9.2, Total Bilirubin 1.00, AST 38 H, ALT 38, Alkaline Phosphatase 163 H, Total Protein 6.2 L, Albumin 2.4 L, Globulin 3.8, Albumin/Globulin Ratio 0.6 L Micro: Microbiology 08/02/23 02:45 Stool Stool Occult Blood (JOSE M) - Final Occult Blood Positive 08/01/23 18:30 Mucosa - Nose SARS-CoV-2, Influenza & RSV (PCR) - Final Rhythm Strip Rhythm Strip: Sinus Rhythm Rate: 52 Ectopy: None Imagaing Radiology Impression Chest X-Ray 08/01/23 17:55 IMPRESSION: No acute cardiopulmonary disease. Electronically Signed: Rogelio Awad MD at 18:08 EST , Documented by User: Dr. Foster Renner MD 08/02/23 16:55 Assessment & Plan Assessment/Plan (1) Acute hyperkalemia: (2) Acute kidney failure: (3) Acute hypotension: PLAN: Plan This is an 83-year-old male with past medical history significant for BPH, hypertension, cirrhosis and esophageal varices who presented to emergency room yesterday with complaints of weakness. Lab work revealed potassium 7.3, bicarb 14, creatinine 3.7. Nephrology consulted. 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 In reviewing past serum creatinine trends baseline serum creatinine around 1.20 mg/dL as of June 2023. On admission serum creatinine 3.74 and today serum creatinine improved to 2.69 mg/dL. Patient is nonoliguric. Volume status appears to be mildly hypovolemic. Rachel horn is on IV fluids. To note he was significantly hypotensive on presentation to the emergency room, his blood pressure was 83/36. Blood pressures are slowly improving. Likely prerenal KYAW multifactorial from hypotension with poor renal perfusion and significant volume depletion (~30lb wt loss over few weeks) with concurrent Lasix, Aldactone and valsartan. Likely hyperkalemia from KYAW, valsar mad[place] and Aldactone and also dietary indiscretion. Overall renal function is improving. Potassium trends have improved with medications that were given in the emergency room which included calcium gluconate, insulin, D50, Kayexalate and started on bicarb drip. Potassium was 7.3 on admission, currently 5.4. Reviewed with patient foods to avoid over next few days that are potassium rich. Blood pressures are improving with volume expansion, patient is off antihypertensives, currently on IV fluids. Patient is nonoliguric. At this time there is no acute indication for MULE DEVELOPER. Bicarb levels have improved, on admission bicarb was 14 and improved to 19 this morning. Recommend to continue supportive care. We will obtain renal ultrasound (to note patient had abdominal CT in June 2023 which showed multiple bilateral renal cysts, prominent cortical scarring of left kidney). Urinalysis was negative for WBC, blood or protein. Further orders forthcoming as hospitalization evolves, thank for allowing us participate in the care of Mr. Gale Nephrology attending: The patient is seen and examined. I agree with JASKARAN's note as documented above. Suspect KYAW is secondary to volume depletion made worse by concurrent use of ARB. Prerenal KYAW can also progressed to ischemic ATN. Low suspicion for other causes of KYAW. Urinalysis looks benign, so GN is unlikely. Ultrasound kidney has been done but report is not back yet. On my cursory look, there is no hydronephrosis. Continue to encourage oral intake. Continue to hold ARB and diuretic. The patient does not appear to be volume overloaded at this point. Recheck renal function, volume status, electrolytes, and acid-base again tomorrow. Hyperkalemia is been treated medically. Serum potassium is trending down. Recheck potassium again tomorrow. Continue limiting potassium in diet to 2 g or less per day. Armando Madrid MD. HPI Consult Data Date of Consult: 08/02/23 [facility] Medical History Anemia due to gastrointestinal blood loss Bleeding external hemorrhoids BPH (benign prostatic hyperplasia) Bruising Depression Former smoker High cholesterol History of COVID-19 History of diverticulitis History of stress test Hx of fracture of rib Hypertension Macular degeneration Pilonidal cyst Prostate disease Restless legs Wears dentures Home Medications amlodipine 5 mg tablet 5 mg PO DAILY HTN 03/09/21 [History Last Taken 03/23/21] finasteride 5 mg tablet 5 mg PO DAILY BPH 03/09/21 [History Last Taken 03/09/21] ropinirole 0.25 mg tablet 0.25 mg PO PRN PRN restless legs 03/09/21 [History Last Taken Unknown] rosuvastatin 10 mg tablet 10 mg PO QODAY cholesterol 03/09/21 [History Last Taken 03/08/21] tamsulosin 0.4 mg capsule 0.4 mg PO BID BPH 03/09/21 [History Last Taken 03/09/21] valsartan 80 mg tablet 80 mg PO DAILY HTN 03/09/21 [History Last Taken 03/09/21] benzonatate 100 mg capsule 100 mg PO TID 08/01/23 [History Last Taken Unknown] escitalopram oxalate 5 mg tablet 5 mg PO DAILY 08/01/23 [History Last Taken Unknown] furosemide 40 mg tablet 40 mg PO DAILY 08/01/23 [History Last Taken Unknown] nitroglycerin 0.4 mg sublingual tablet 0.4 mg sublingual Q5M 08/01/23 [History Last Taken Unknown] spironolactone 50 mg tablet 50 mg PO DAILY 08/01/23 [History Last Taken Unknown] Allergy/AdvReac Type Severity Reaction Status Date / Time amoxicillin [From Augmentin] Allergy Other Verified 08/01/23 16:54 clavulanic acid Allergy Other Verified 08/01/23 16:54 [From Augmentin] lisinopril AdvReac Other Verified 08/01/23 16:54 Family History Mother Cancer Sister Cancer Other Heart disease Surgical History History of cataract surgery History of excision of pilonidal cyst History of herniorrhaphy Social History household members: none Smoking Status: Former smoker alcohol intake: current alcohol intake frequency: other substance use type: does not use Lab / Micro Data 08/02/23 04:45 08/02/23 12:50
--- NOTE | 2023-08-02 09:13 | US_ITS ---
STUDY: RENAL ULTRASOUND - COMPLETE REASON FOR EXAM: Male, 83 years old. KYAW TECHNIQUE: Ultrasound evaluation of the kidneys was performed with real-time and static dutton-scale imaging. COMPARISON: None. FINDINGS: RIGHT KIDNEY: Normal location of the right kidney, which is normal in size. The right kidney measures 10.1 x 4.6 x 5.1 cm. There is thinning of the renal cortex The renal cortex measures 0.8 cm. There is a cyst measuring 1.7 x 1.4 x 1.2 cm. There are no right renal calculi. There is no right hydronephrosis. DISTAL RIGHT URETER: There is non-visualization of the distal right ureter. There is no demonstrated right ureterovesical junction calculus. There is a visualized right ureteral jet. LEFT KIDNEY: Normal location of the left kidney, which is normal in size. The left kidney measures 10.4 x 3.8 x 3.9 cm. Mild thinning of the left renal cortex. The renal cortex measures 0.7 cm. Multiple cysts the largest measuring 3.3 x 3.9 x 2.7 centimeters. There are no left renal calculi. There is no left hydronephrosis. DISTAL LEFT URETER: There is non-visualization of the distal left ureter. There is no demonstrated left ureterovesical junction calculus. There is a visualized left ureteral jet. BLADDER: The bladder contains Briseno catheter and cannot be adequately evaluated.. US/Kidney and Bladder IMPRESSION: Multiple left renal cysts and small cyst in the right kidney. No evidence for renal obstruction Electronically Signed: Kenroy Blanchard MD at 17:00 EST ,
[2023-08-02] MEDS: Finasteride 5 MG Tablet PO (09:27)
[2023-08-02] MEDS: Escitalopram Oxalate 10 MG Tablet 5 MG PO (09:27)
--- NOTE | 2023-08-02 11:40 | CASEMGMT ---
RN?CM?DIRECTOR BIOLOGICS?CM?to room to meet with patient for initial transition planning/care coordination?assessment.?RN?CM?introduced self and role at [facility].? Pt voices understanding and consents to?assessment?at this time.? Pt sitting up in chair in room in no distress at this time.? and sister @ bedside and pt agreeable to them being present. Pt is A/O at this time and answers all questions appropriately.?? Care providers, pharmacy, and demographics verified/updated at this time. PCP: Dr Lynn Specialists:Dr Diaz. states they have not been pleased w/him and would like to see Dr Loera. They were provided w/ [facility] office # and advised to call to inquire about appt. Also made aware they may need referral from PCP. Preferred [facility]acy: [facility] Insurance: [facility], Physician's [place] Prescription Benefit:?Yes Living Will/HPOA:?Has both LW and HCPOA, who is his , Elvia LNOK: , Elvia. 3 daughters. One daughter is Marlen Living Arrangements: Lives w/his in ranch-style home w/basement and 1 step to enter. Pt states he does not often go to the basement. Pt states he is indep w/bathing and dressing and manages his own medications. He states his does most of the home mgnt tasks. Pt reports he has been becoming increasingly weaker over past 4-5 weeks and states his will sometimes need to assist him when he is up ambulating in the home when he gets weak and shakey . He states he often furniture walks or puts his hands on the guerra for balance. Transportation:?Pt, . DME: States has the following DME:?Pt states he has a cane and walker but has not been using them and he has grab bars. He does not have a shower chair but states he feels he could use one. Made aware [facility] does not cover for this item and given list of places that this could be purchased from. He does not have a medical alert button, interested in info, and info provided. Pt states no need for further DME at this time.? HHC/SNF: No hx of either. Discussed discharge planning and questions answered. Pt states he thinks he would benefit from going to SNF before returning home. Pt provided w/SNF list that was prepared by Barbara retail planner. He was made aware to choose top 3 preferences. Pt and voice no further concerns/needs at this time.? PLAN:??SNF Therapy evals pending. Amandeep BSN?RN?CM
--- NOTE | 2023-08-02 11:57 | CASEMGMT ---
Discharge Planning A list of?SNF providers including quality and resource use data and consistent with the patient's preferred geographic region, medical needs, and insurance network was created in [facility].? This list was provided to the RN VIRY. Barbara Pizarro, Discharge Planning Asst.
[2023-08-02 13:12] LABS: Anion Gap 8 (5-15); BUN 84 mg/dL (7-18); BUN/Creat Ratio 35.1 RATIO (10-20); Calcium,Total 8.6 mg/dL (8.5-10.1); Chloride 110 mmol/L (98-107); Creatinine, Serum 2.39 mg/dL (0.70-1.30); EST Glomerular Filtration Rate 28 mL/min (>60); Est Glom Filt Rate - Afr Amer 34 mL/min (>60); Estimated Creatinine Clearance 22.26 ml/min; Glucose 144 mg/dL (74-106); Sodium Level 142 mmol/L (136-145)
--- NOTE | 2023-08-02 16:19 | CASEMGMT ---
SW checked in with patient and his regarding correction choices. They have not yet picked any facilities. Plan: SNF pending patient's choices and accepting facility. Silvia CARVAJAL
[2023-08-02] MEDS: Tamsulosin HCl 0.4 MG Capsule 0.400000000000000022 MG PO (20:32)
[2023-08-03] VITALS (24 sets, daily range): BP systolic 56–114; BP diastolic 39–56; PULSE 51–86; RESP 15–25; TEMP 36.3–37; O2SAT 88–97; BMI 25.6
[2023-08-03] MEDS: Sodium Bicarbonate 150 MEQ in Dextrose 5%-Water (1000mL Bag) 1,000 ML 250 MEQ IV ×2 (00:59→06:31)
[2023-08-03] MEDS: 0.9% Saline Lock 10 ML Syringe IV (03:51)
[2023-08-03 04:05] LABS: Hemoglobin 10.3 g/dL (13.0-16.5); Mean Corp Hgb Conc 34.3 g/dL (32-36); Mean Corpuscular Hgb 33.2 pg (27.0-32.0); Mean Corpuscular Volume 96.8 fL (80-94); Mean Platelet Vol. 10.4 fl (6.2-12.0); POSITIVE COUNT YES; RBC Distribution Width CV 13.2 % (11.6-14.6); RBC Distribution Width SD 47.3 fl (35.1-43.9); White Blood Count 4.6 K/mm3 (4.4-11.0)
[2023-08-03 04:10] LABS: Platelet Count 49 K/mm3 (150-450)
[2023-08-03 04:11] LABS: Scan Indicated on CBC? Y/N YES- FLAGS NOTED
[2023-08-03 04:31] LABS: ALB/GLOB Ratio 0.6 RATIO (0.9-2.4); AST(SGOT) 71 U/L (15-37); Alanine Aminotransfer ALT/SGPT 55 U/L (16-61); Albumin, Serum 2.1 g/dL (3.2-5.0); Alkaline Phosphatase 155 U/L (45-117); Anion Gap 4 (5-15); BUN 71 mg/dL (7-18); BUN/Creat Ratio 31.3 RATIO (10-20); Calcium,Total 7.7 mg/dL (8.5-10.1); Chloride 103 mmol/L (98-107); Creatinine, Serum 2.27 mg/dL (0.70-1.30); EST Glomerular Filtration Rate 29 mL/min (>60); Est Glom Filt Rate - Afr Amer 36 mL/min (>60); Estimated Creatinine Clearance 23.44 ml/min; Globulin 3.3 g/dL (2.2-4.2); Glucose 130 mg/dL (74-106); Magnesium 1.7 mg/dL (1.6-2.6); Phosphorus 2.6 mg/dL (2.5-4.9); Potassium 4.6 mmol/L (3.5-5.1); Protein, Total 5.4 g/dL (6.4-8.2); Sodium Level 141 mmol/L (136-145)
[2023-08-03 05:28] LABS: Differential Comment SCANNED
--- NOTE | 2023-08-03 05:35 | EKG12_ITS ---
Test Reason : RHYTHM CHANGE Blood Pressure : / mmHG Vent. Rate : 059 BPM Atrial Rate : 059 BPM P-R Int : 198 ms QRS Dur : 084 ms QT Int : 432 ms P-R-T Axes : 037 -17 008 degrees QTc Int : 427 ms Sinus bradycardia with Premature supraventricular complexes Otherwise normal ECG Confirmed by SHAWNA SOUTH, CARSON ([id number]), assistant production editor JINNY MENDOZA ([id number]) on 08/05/2023 2:27:48 PM Referred By: ANISH Confirmed By:CARSON MATOS MD
--- NOTE | 2023-08-03 05:41 | EKG12_ITS ---
Test Reason : RHYTHM CHANGE Blood Pressure : / mmHG Vent. Rate : 061 BPM Atrial Rate : 061 BPM P-R Int : 196 ms QRS Dur : 076 ms QT Int : 432 ms P-R-T Axes : 065 -18 003 degrees QTc Int : 434 ms Normal sinus rhythm Normal ECG Confirmed by SHAWNA SOUTH, CARSON ([id number]), writer editor JINNY MENDOZA ([id number]) on 08/05/2023 2:27:26 PM Referred By: ANISH Confirmed By:CARSON MATOS MD
--- NOTE | 2023-08-03 05:49 | EKG12_ITS ---
Test Reason : RHYTHM CHANGE Blood Pressure : / mmHG Vent. Rate : 052 BPM Atrial Rate : 052 BPM P-R Int : 202 ms QRS Dur : 082 ms QT Int : 434 ms P-R-T Axes : 061 -18 -01 degrees QTc Int : 403 ms Sinus bradycardia with Blocked Premature atrial complexes Otherwise normal ECG Confirmed by SHAWNA SOUTH, CARSON ([id number]), online editor JINNY MENDOZA ([id number]) on 08/05/2023 2:27:38 PM Referred By: ANISH Confirmed By:CARSON MATOS MD
[2023-08-03] MEDS: Benzonatate 100 MG Capsule PO ×3 (06:31→20:35)
--- NOTE | 2023-08-03 07:38 | PN.HOSP_ITS ---
Reason for Visit Reason for Visit: Diagnoses Dehydration (08/01/23) Hyperkalemia (08/01/23) Hypotension, unspecified (08/01/23) Acute kidney failure, unspecified (08/01/23) Personal history of other diseases of the digestive system (08/01/23) Subjective Subjective Patient seen clinical condition continues to improve. Patient has been having PVCs on the monitor magnesium 1.7. Potassium down to 4.6 and creatinine 2.27. Patient blood pressure remains relatively low Objective Data Objective Data Vital Signs: Vital Signs Temp Pulse Resp BP Pulse Ox O2 Del Method 98.6 F 60 20 H 95/51 L 91 Room Air 08/03/23 02:45 08/03/23 02:45 08/03/23 02:45 08/03/23 02:45 08/03/23 04:00 08/03/23 04:00 Oxygen Delivery Method Room Air Weight: 76.7 kg Body Mass Index (BMI) 25.6 Intake & Output: Intake and Output for Last 24 Hours 08/01/23 08/02/23 08/03/23 23:59 23:59 23:59 Intake Total 2030 / 2029 8425.83 / 8425.83 2300 / 2300 Output Total 500 / 850 2160 / 2510 1010 / 1010 Balance 1530 / 1180 6265.83 / 5915.83 1290 / 1290 Lab / Micro Data 08/03/23 03:49 08/03/23 03:49 Labs: Laboratory Results - last 24 hr 08/02/23 12:50: Sodium 142, Potassium 5.0, Chloride 110 H, Carbon Dioxide 24.0, Anion Gap 8, BUN 84 H, Creatinine 2.39 H, Estim Creat Clear Calc 22.26, Est GFR (MDRD) Af Amer 34 L, Est GFR (MDRD) Non-Af 28 L, BUN/Creatinine Ratio 35.1 H, Glucose 144 H, Calcium 8.6 08/03/23 03:49: WBC 4.6, RBC 3.10 L, Hgb 10.3 L, Hct 30.0 L, MCV 96.8 H, MCH 33.2 H, MCHC 34.3, RDW Std Deviation 47.3 H, RDW Coeff of Randi 13.2, Plt Count 49 L*, MPV 10.4, Differential Comment SCANNED, Diff Path Review November foll, Sodium 141, Potassium 4.6, Chloride 103, Carbon Dioxide 34.0 H, Anion Gap 4 L, BUN 71 H , Creatinine 2.27 H, Estim Creat Clear Calc 23.44, Est GFR (MDRD) Af Amer 36 L, Est GFR (MDRD) Non-Af 29 L, BUN/Creatinine Ratio 31.3 H, Glucose 130 H, Calcium 7.7 L, Phosphorus 2.6, Magnesium 1.7, Total Bilirubin 1.10 H, AST 71 H, ALT 55, Alkaline Phosphatase 155 H, Total Protein 5.4 L, Albumin 2.1 L, Globulin 3.3, Albumin/Globulin Ratio 0.6 L Micro: Microbiology 08/02/23 02:45 Stool Stool Occult Blood (JOSE M) - Final Occult Blood Positive 08/01/23 18:30 Mucosa - Nose SARS-CoV-2, Influenza & RSV (PCR) - Final Radiography Diagnostic Testing: Radiology Impression Renal Ultrasound 08/02/23 09:13 IMPRESSION: Multiple left renal cysts and small cyst in the right kidney. No evidence for renal obstruction Electronically Signed: Kenroy Blanchard MD at 17:00 EST Reading Location ID and State: [address] [place] [address] Tel , Service support , Rhythm Strip Rhythm Strip: Sinus Rhythm Rate: 52 Ectopy: None Physical Exam Narrative GENERAL: cooperative appears frail looking HEENT: Atraumatic; normocephalic EYES; Anicteric, Normal Conjunctiva NECK; supple, normal thyroid, RESPIRATORY: Diminished to auscultation CARDIOVASCULAR: Regular S1 S2, GI: soft, normoactive bowel sounds, : No Renal angle tenderness; EXTREMITIES: No edema, no clubbing, MUSCULOSKELETAL: no muscle wasting NEURO: Awake; no lateralizing signs. SKIN: No Rash PSYCH; Flat affect Assessment & Plan Assessment/Plan (1) Acute hyperkalemia: (2) Acute kidney failure: (3) Acute dehydration: (4) Acute hypotension: (5) History of cirrhosis: PLAN: Plan Patient is an 83-year-old gentleman who presented with progressive generalized weakness. Patient was diagnosed with acute kidney injury with significant hyperkalemia. Admitted to the intensive care unit for subsequent management 1. Acute kidney injury ? Secondary to diuretic use. Baseline creatinine 1.2 creatinine on admission was 3.74 suspected offending medications held patient started on IV rehydration with subsequent monitoring of electrolytes ordered ?08/03/2023; creatinine down to 2.27 2. Hyperkalemia ? Potassium on admission was 7.3 patient did receive Kayexalate. Patient is on potassium sparing diuretics held ? 08/03/2023; hyperkalemia resolved 3. Essential hypertension ? Patient is on amlodipine as well as valsartan, held in view of impaired kidney function and hyperkalemia 08/03/2023 patient blood pressure remains relatively low; will continue with holding amlodipine as well as valsartan 4. BPH with lower urinary obstructive symptoms - Patient treated with tamsulosin 5. Depression ? Patient is on escitalopram did continue 6. Restless leg syndrome ? Patient is on ropinirole at night 7. Dyslipidemia -Patient is on statin therapy, continued at home dose 8. Nonion gap metabolic acidosis ? Secondary to KYAW do expect improvement with improvement in his kidney function 9. Cirrhosis of the liver ? Patient is on Aldactone as well as furosemide held in view of his acute kidney injury and hyperkalemia 10. Physical deconditioning - Requested for PT OT eval and sr. social media & mobile manager to assist with discharge planning 11. Thrombocytopenia ?secondary to chronic liver disease DVT prophylaxis ? SCDs only; given patient low platelet count Time spent in the patient's overall evaluation,decision-making process, review of diagnostic data, adjustment of management, discussion with other providers, nursing nursing and ancillary staff involved in patient's care documentation, 50 Minutes Charges/Coding Visit Charges Inpatient E&M: [address] [place] [id number]
[2023-08-03] MEDS: Escitalopram Oxalate 10 MG Tablet 5 MG PO (09:48)
[2023-08-03] MEDS: Tamsulosin HCl 0.4 MG Capsule 0.400000000000000022 MG PO ×2 (09:48→20:35)
[2023-08-03] MEDS: Magnesium Sulfate 2 GM in Dextrose 5%-Water (100mL Bag) 100 ML IV (09:48)
[2023-08-03] MEDS: Finasteride 5 MG Tablet PO (09:48)
[2023-08-03] MEDS: 0.9% Normal Saline (500mL Bag) 500 ML 999 ML IV (09:50)
[2023-08-03] MEDS: Midodrine HCl 5 MG Tablet PO ×2 (14:11→18:14)
--- NOTE | 2023-08-03 15:43 | PN.RENAL_ITS ---
Subjective Subjective Follow-up on acute kidney injury hyperkalemia Today blood pressure remains low midodrine started Positive orthostatics Good urine output Still poor p.o. intake Remains bradycardic Objective Data Objective Data Vital Signs: Vital Signs Temp Pulse Resp BP Pulse Ox O2 Del Method O2 Flow Rate 98.0 F 59 L 16 114/54 L 95 Nasal Cannula 2 08/03/23 12:00 08/03/23 14:00 08/03/23 14:00 08/03/23 14:00 08/03/23 14:00 08/03/23 14:49 08/03/23 14:49 Oxygen Flow Rate (L/min) 2 Oxygen Delivery Method Nasal Cannula Weight: 76.7 kg Body Mass Index (BMI) 25.6 Intake & Output: Intake and Output for Last 24 Hours 08/01/23 08/02/23 08/03/23 23:59 23:59 23:59 Intake Total 2029 / 2029 8425.83 / 8425.83 3166.67 / 3166.67 Output Total 500 / 850 2160 / 2510 1560 / 1560 Balance 1530 / 1180 6265.83 / 5915.83 1606.67 / 1606.67 Lab / Micro Data Attestation: I reviewed the patient's lab results. 08/03/23 03:49 08/03/23 03:49 Labs: Laboratory Results - last 24 hr 08/03/23 03:49: WBC 4.6, RBC 3.10 L, Hgb 10.3 L, Hct 30.0 L, MCV 96.8 H, MCH 33.2 H, MCHC 34.3, RDW Std Deviation 47.3 H, RDW Coeff of Randi 13.2, Plt Count 49 L*, MPV 10.4, Differential Comment SCANNED, Diff Path Review November, Sodium 141, Potassium 4.6, Chloride 103, Carbon Dioxide 34.0 H, Anion Gap 4 L, BUN 71 H , Creatinine 2.27 H, Estim Creat Clear Calc 23.44, Est GFR (MDRD) Af Amer 36 L, Est GFR (MDRD) Non-Af 29 L, BUN/Creatinine Ratio 31.3 H, Glucose 130 H, Calcium 7.7 L, Phosphorus 2.6, Magnesium 1.7, Total Bilirubin 1.10 H, AST 71 H, ALT 55, Alkaline Phosphatase 155 H, Total Protein 5.4 L, Albumin 2.1 L, Globulin 3.3, Albumin/Globulin Ratio 0.6 L Micro: Microbiology 08/01/23 18:30 Urine, Clean Catch Urine Culture - Preliminary Culture exhibits no growth. 08/02/23 02:45 Stool Stool Occult Blood (JOSE M) - Final Occult Blood Positive 08/01/23 18:30 Mucosa - Nose SARS-CoV-2, Influenza & RSV (PCR) - Final Radiography Diagnostic Testing: Radiology Impression Renal Ultrasound 08/02/23 09:13 IMPRESSION: Multiple left renal cysts and small cyst in the right kidney. No evidence for renal obstruction Electronically Signed: Kenroy Blanchard MD at 17:00 EST , Rhythm Strip Rhythm Strip: Sinus Rhythm Rate: 52 Ectopy: None Physical Exam Narrative Patient is resting comfortably no acute distress Oral mucosa is dry Breath sounds are equal S1-S2 bradycardic abdomen is nontender No significant peripheral edema Assessment & Plan Assessment/Plan (1) Acute hyperkalemia: (2) Acute kidney failure: (3) Acute hypotension: PLAN: Plan Assessment and plan Acute kidney injury on chronic kidney disease -Baseline serum creatinine is around 1.2 mg/dL -Serum creatinine peaked at 3.7 mmol/L improved to 2.2 with volume expansion -Suspect acute insult secondary to prerenal azotemia -Pressure remains low -Currently nonoliguric Hyperkalemia -This is now resolved Plan -Give additional 500 cc bolus of lactated Ringer as patient is persistently orthostatic and bradycardic -Check cortisol level -Check echocardiogram -For renal placement therapy -BMP in the morning You, please call [phone] with any concerns
--- NOTE | 2023-08-03 15:48 | ECHOD_ITS ---
Reason For Study: HYPOTENSION Procedure This was a 2D Doppler, Color Flow transthoracic echocardiogram. The study was technically difficult. Exam performed portable in ICU/CCU. Left Ventricle Normal LV size. Left ventricular systolic function is normal. The estimated ejection fraction is 60 %. Normal diastology for age. No regional wall motion abnormalities noted. Right Ventricle Normal RV size. Normal systolic function. Atria The left and right atria are normal. Mitral Valve Mild diffuse mitral valve thickening. No significant mitral valve stenosis. Trivial mitral valve insufficiency. Tricuspid Valve Normal tricuspid valve. Mild (1+) tricuspid valve insufficiency. Right ventricular systolic pressure estimated to be 34 mmHg. Aortic Valve Trisinus/trileaflet aortic valve. Mild diffuse aortic valve thickening. Mild focal aortic valve calcification. Aortic sclerosis, no stenosis. Pulmonic Valve The pulmonic valve is not well visualized. Great Vessels Normal aortic root. Pericardium/Pleural No pericardial effusion. MMode/2D Measurements & Calculations LVIDd: 4.6 cm IVSd: 0.90 cm Ao root diam: 3.8 cm LVIDs: 2.5 cm LVPWd: 0.92 cm RVDd: 3.0 cm FS: 44.8 % LAV(MOD-bp): 73.4 ml LVAd ap4: 30.6 cm2 LVAd ap2: 24.0 cm2 LAV(MOD-bp) Indexed: 38.3 ml/m2 LVLd ap4: 8.6 cm LVLd ap2: 7.9 cm LAV(MOD-sp2): 77.1 ml EDV(MOD-sp4): 91.1 ml EDV(MOD-sp2): 59.3 ml LAV(MOD-sp4): 63.1 ml EDV(sp4-el): 92.1 ml EDV(sp2-el): 61.6 ml LVAs ap4: 14.2 cm2 LVAs ap2: 11.2 cm2 LVLs ap4: 6.7 cm LVLs ap2: 6.5 cm ESV(MOD-sp4): 26.6 ml ESV(MOD-sp2): 17.1 ml ESV(sp4-el): 25.3 ml ESV(sp2-el): 16.3 ml EF(MOD-sp4): 70.8 % EF(MOD-sp2): 71.1 % EF(sp4-el): 72.5 % SV(MOD-sp4): 64.5 ml SV(MOD-sp2): 42.1 ml SV(sp4-el): 66.7 ml LA dimension(2D): 4.0 cm TAPSE: 2.4 cm LA A4 area: 22.2 cm2 Time Measurements MV dec time: 0.32 sec Doppler Measurements & Calculations MV E max jerardo: 69.7 cm/sec Lat Peak E' Jerardo: 10.8 cm/sec Med Peak E' Jerardo: 7.3 cm/sec MV A max jerardo: 97.0 cm/sec E/E' lat: 6.5 E/E' med: 9.5 MV E/A: 0.72 MV V2 max: 105.3 cm/sec MV P1/2t max jerardo: 84.4 cm/sec Ao V2 max: 165.9 cm/sec MV max P.4 mmHg MV P1/2t: 91.8 msec Ao max P.0 mmHg MV V2 mean: 46.2 cm/sec MV dec slope: 269.1 cm/sec2 Ao V2 mean: 117.7 cm/sec MV mean P.1 mmHg Ao mean P.0 mmHg MV V2 VTI: 44.9 cm MVA(P1/2t): 2.4 cm2 Ao V2 VTI: 39.4 cm AV (velocity ratio): 0.69 LV V1 max: 128.2 cm/sec PA V2 max: 104.8 cm/sec TR max jerardo: 277.8 cm/sec LV V1 max P.6 mmHg PA V2 mean: 67.7 cm/sec TR max P.9 mmHg LV V1 mean P.2 mmHg LV V1 mean: 84.5 cm/sec LV V1 VTI: 27.0 cm ECHO/Echo Complete Interpretation Summary The estimated ejection fraction is 60 %. Mild diffuse mitral valve thickening. Mild (1+) tricuspid valve insufficiency. Aortic sclerosis, no stenosis. Ordering Physician: Manpreet De La Rosa Referring Physician: Aadm Lynn Performed By: Tamia Urbina, GLENDA, RVT
[2023-08-03] MEDS: LACTATED RINGERS 500 ML 999 ML IV (16:15)
--- NOTE | 2023-08-03 17:27 | CASEMGMT ---
Social Work SW introduced self and role to patient and . Pt had been given a SNF list and SW followed up on choices. Pt and are reluctant for patient to go to a SNF. reports, He can go if the doctor says he needs it. reports [facility] as their first choice and TCU as next option if a SNF is needed. PT/OT evaluations look like a SNF will be needed but patient could not have PT/OT today due to medical condition. also voiced that she would like him to see Dr. Loera as they are unhappy with Dr. Diop. SW informed that she would look into the process as with the weekend the office is not open. SW provided emotional support. Plan: Follow for patient discharge needs, referred to [facility] if SNF is needed. Daysi Bledsoe COTTRELL BLOWER, EMBEDDED SOFTWARE DEVELOPMENT ENGINEER
[2023-08-03] MEDS: Atorvastatin Calcium 20 MG Tablet PO (20:35)
[2023-08-04] VITALS (7 sets, daily range): BP systolic 96–117; BP diastolic 53–100; PULSE 53–59; RESP 16–20; TEMP 36.2–36.8; O2SAT 93–97; BMI 25.2
[2023-08-04 04:29] LABS: Hematocrit 30.7 % (40-54); Hemoglobin 10.2 g/dL (13.0-16.5); Mean Corp Hgb Conc 33.2 g/dL (32-36); Mean Corpuscular Volume 99.4 fL (80-94); Mean Platelet Vol. 11.3 fl (6.2-12.0); POSITIVE COUNT YES; RBC Distribution Width CV 13.2 % (11.6-14.6); Red Blood Count 3.09 M/mm3 (4.6-6.2); White Blood Count 5.3 K/mm3 (4.4-11.0)
[2023-08-04 04:40] LABS: Platelet Count 43 K/mm3 (150-450)
[2023-08-04 04:50] LABS: ALB/GLOB Ratio 0.6 RATIO (0.9-2.4); AST(SGOT) 79 U/L (15-37); Alanine Aminotransfer ALT/SGPT 65 U/L (16-61); Albumin, Serum 2.1 g/dL (3.2-5.0); Alkaline Phosphatase 174 U/L (45-117); Anion Gap 6 (5-15); BUN 59 mg/dL (7-18); BUN/Creat Ratio 26.8 RATIO (10-20); Calcium,Total 7.8 mg/dL (8.5-10.1); Chloride 104 mmol/L (98-107); EST Glomerular Filtration Rate 30 mL/min (>60); Est Glom Filt Rate - Afr Amer 37 mL/min (>60); Estimated Creatinine Clearance 24.18 ml/min; Globulin 3.4 g/dL (2.2-4.2); Glucose 94 mg/dL (74-106); Potassium 5.1 mmol/L (3.5-5.1); Protein, Total 5.5 g/dL (6.4-8.2); Sodium Level 140 mmol/L (136-145)
[2023-08-04] MEDS: Benzonatate 100 MG Capsule PO ×3 (05:08→20:50)
[2023-08-04] MEDS: 0.9% Saline Lock 10 ML Syringe IV (05:09)
--- NOTE | 2023-08-04 07:19 | PN.HOSP_ITS ---
Reason for Visit Reason for Visit: Diagnoses Dehydration (08/01/23) Hyperkalemia (08/01/23) Hypotension, unspecified (08/01/23) Acute kidney failure, unspecified (08/01/23) Personal history of other diseases of the digestive system (08/01/23) Subjective Subjective Patient seen had a relatively uneventful night. Awaiting insurance approval prior to transfer to a retirement facility Objective Data Objective Data Vital Signs: Vital Signs Temp Pulse Resp BP Pulse Ox O2 Del Method O2 Flow Rate 97.3 F L 59 L 20 H 96/53 L 96 Nasal Cannula 3 08/04/23 05:00 08/04/23 05:00 08/04/23 05:00 08/04/23 05:00 08/04/23 05:00 08/04/23 05:07 08/04/23 05:07 Oxygen Flow Rate (L/min) 3 Oxygen Delivery Method Nasal Cannula Weight: 75.7 kg Body Mass Index (BMI) 25.2 Intake & Output: Intake and Output for Last 24 Hours 08/02/23 08/03/23 08/04/23 23:59 23:59 23:59 Intake Total 8425.83 / 8425.83 5510.67 / 5510.67 240 / 240 Output Total 2160 / 2510 2485 / 2485 650 / 650 Balance 6265.83 / 5915.83 3025.67 / 3025.67 -410 / -410 Lab / Micro Data 08/04/23 04:06 08/04/23 04:06 Labs: Laboratory Results - last 24 hr 08/04/23 04:06: WBC 5.3, RBC 3.09 L, Hgb 10.2 L, Hct 30.7 L, MCV 99.4 H, MCH 33.0 H, MCHC 33.2, RDW Std Deviation 48.0 H, RDW Coeff of Randi 13.2, Plt Count 43 L*, MPV 11.3, Diff Path Review November, Sodium 140, Potassium 5.1, Chloride 104, Carbon Dioxide 30.0, Anion Gap 6, BUN 59 H, Creatinine 2.20 H, Estim Creat Clear Calc 24.18, Est GFR (MDRD) Af Amer 37 L, Est GFR (MDRD) Non-Af 30 L, BUN/Creatinine Ratio 26.8 H, Glucose 94, Calcium 7.8 L, Total Bilirubin 1.30 H, AST 79 H, ALT 65 H, Alkaline Phosphatase 174 H, Total Protein 5.5 L, Albumin 2.1 L, Globulin 3.4, Albumin/Globulin Ratio 0.6 L Micro: Microbiology 08/01/23 18:30 Urine, Clean Catch Urine Culture - Preliminary Culture exhibits no growth. 08/02/23 02:45 Stool Stool Occult Blood (JOSE M) - Final Occult Blood Positive 08/01/23 18:30 Mucosa - Nose SARS-CoV-2, Influenza & RSV (PCR) - Final Rhythm Strip Rhythm Strip: Sinus Rhythm Rate: 52 Ectopy: None Physical Exam Narrative GENERAL: cooperative appears frail looking HEENT: Atraumatic; normocephalic EYES; Anicteric, Normal Conjunctiva NECK; supple, normal thyroid, RESPIRATORY: Diminished to auscultation CARDIOVASCULAR: Regular S1 S2, GI: soft, normoactive bowel sounds, : No Renal angle tenderness; EXTREMITIES: No edema, no clubbing, MUSCULOSKELETAL: no muscle wasting NEURO: Awake; no lateralizing signs. SKIN: No Rash PSYCH; Flat affect Assessment & Plan Assessment/Plan (1) Acute hyperkalemia: (2) Acute kidney failure: (3) Acute dehydration: (4) Acute hypotension: (5) History of cirrhosis: PLAN: Plan Patient is an 83-year-old gentleman who presented with progressive generalized weakness. Patient was diagnosed with acute kidney injury with significant hyperkalemia. Admitted to the intensive care unit for subsequent management 1. Acute kidney injury ? Secondary to diuretic use. Baseline creatinine 1.2 creatinine on admission was 3.74 suspected offending medications held patient started on IV rehydration with subsequent monitoring of electrolytes ordered ?08/03/2023; creatinine down to 2.27 2. Hyperkalemia ? Potassium on admission was 7.3 patient did receive Kayexalate. Patient is on potassium sparing diuretics held ? 08/03/2023; hyperkalemia resolved 3. Essential hypertension ? Patient is on amlodipine as well as valsartan, held in view of impaired kidney function and hyperkalemia 08/03/2023 patient blood pressure remains relatively low; will continue with holding amlodipine as well as valsartan 4. BPH with lower urinary obstructive symptoms - Patient treated with tamsulosin 5. Depression ? Patient is on escitalopram did continue 6. Restless leg syndrome ? Patient is on ropinirole at night 7. Dyslipidemia -Patient is on statin therapy, continued at home dose 8. Nonion gap metabolic acidosis ? Secondary to KYAW do expect improvement with improvement in his kidney function 9. Cirrhosis of the liver ? Patient is on Aldactone as well as furosemide held in view of his acute kidney injury and hyperkalemia 10. Physical deconditioning - Requested for PT OT eval and mental health social worker to assist with discharge planning 11. Thrombocytopenia ?secondary to chronic liver disease DVT prophylaxis ? SCDs only; given patient low platelet count Time spent in the patient's overall evaluation,decision-making process, review of diagnostic data, adjustment of management, discussion with other providers, nursing nursing and ancillary staff involved in patient's care documentation, 35 Minutes Charges/Coding Visit Charges Inpatient E&M: 49930 Subs Hosp L2
[2023-08-04] MEDS: Finasteride 5 MG Tablet PO (08:14)
[2023-08-04] MEDS: Tamsulosin HCl 0.4 MG Capsule 0.400000000000000022 MG PO ×2 (08:14→20:49)
[2023-08-04] MEDS: Midodrine HCl 5 MG Tablet PO ×3 (08:14→16:45)
[2023-08-04] MEDS: Escitalopram Oxalate 10 MG Tablet 5 MG PO (08:14)
[2023-08-05 04:00] VITALS: BP 113/43; PULSE 44; RESP 18; TEMP 36.6; O2SAT 96
[2023-08-05] MEDS: Benzonatate 100 MG Capsule PO ×2 (05:04→13:02)
[2023-08-05] MEDS: 0.9% Saline Lock 10 ML Syringe IV ×2 (05:08→08:19)
[2023-08-05 05:17] LABS: Hematocrit 31.3 % (40-54); Hemoglobin 10.5 g/dL (13.0-16.5); Mean Corp Hgb Conc 33.5 g/dL (32-36); Mean Corpuscular Hgb 33.1 pg (27.0-32.0); Mean Corpuscular Volume 98.7 fL (80-94); Mean Platelet Vol. 10.5 fl (6.2-12.0); POSITIVE COUNT YES; RBC Distribution Width SD 46.9 fl (35.1-43.9); Red Blood Count 3.17 M/mm3 (4.6-6.2); White Blood Count 5.4 K/mm3 (4.4-11.0)
[2023-08-05 05:20] VITALS: BMI 26.2
[2023-08-05 05:44] LABS: ALB/GLOB Ratio 0.6 RATIO (0.9-2.4); AST(SGOT) 59 U/L (15-37); Alanine Aminotransfer ALT/SGPT 57 U/L (16-61); Albumin, Serum 2.1 g/dL (3.2-5.0); Alkaline Phosphatase 184 U/L (45-117); Anion Gap 6 (5-15); BUN 49 mg/dL (7-18); BUN/Creat Ratio 28.3 RATIO (10-20); Calcium,Total 7.6 mg/dL (8.5-10.1); Chloride 111 mmol/L (98-107); Creatinine, Serum 1.73 mg/dL (0.70-1.30); EST Glomerular Filtration Rate 40 mL/min (>60); Est Glom Filt Rate - Afr Amer 49 mL/min (>60); Estimated Creatinine Clearance 30.75 ml/min; Globulin 3.4 g/dL (2.2-4.2); Glucose 94 mg/dL (74-106); Potassium 4.6 mmol/L (3.5-5.1); Protein, Total 5.5 g/dL (6.4-8.2); Sodium Level 142 mmol/L (136-145)
[2023-08-05 05:48] LABS: Platelet Count 43 K/mm3 (150-450)
[2023-08-05 06:27] LABS: Scan Indicated on CBC? Y/N YES- FLAGS NOTED
[2023-08-05] MEDS: Midodrine HCl 5 MG Tablet PO ×3 (08:17→16:04)
[2023-08-05] MEDS: Tamsulosin HCl 0.4 MG Capsule 0.400000000000000022 MG PO (08:18)
[2023-08-05] MEDS: Escitalopram Oxalate 10 MG Tablet 5 MG PO (08:18)
[2023-08-05] MEDS: Finasteride 5 MG Tablet PO (08:19)
--- NOTE | 2023-08-05 09:48 | CASEMGMT ---
Addendum entered by Silvia Swartz 08/05/23 15:05: JHONATHAN checked with patient and family and they are all in agreement with patient going to [facility]. SW notified physician and she will send patient today. SW completed a convalescent in the [facility] system. Plan: d/c to [facility] under skilled level of care on a convalescent stay. Physicians will transport patient. Silvia CARVAJAL Original Note: [facility] accepted patient. JHONATHAN will check with patient and family to confirm the plan is SNF. Apparently over the weekend patient was wanting to go home. Silvia CARVAJAL
[2023-08-05 10:00] VITALS: BP 102/54; PULSE 55; RESP 20; TEMP 36.4; O2SAT 95
[2023-08-05 10:14] LABS: Pathologist Review Reviewed
[2023-08-05 10:16] LABS: Pathologist Review Reviewed
--- NOTE | 2023-08-05 13:02 | CHAPLAIN ---
Type of Pastoral Visit _x__ Initial Visit ___ Follow-up Visit ___ On-call Visit ___ General Patient Visit ___ Spiritual Assessment ___ Family Conference ___ Bereavement ___ Rapid Response ___ Code Blue ___ Other (describe below) Pastoral Care Referral From _x__ Patient _x__ Family ___ Nurse ___ Physician ___ Applications Processor ___ Valve Pipe Irrigator ___ Other (describe below) Sacrament/Intervention _x__ Active listening ___ Anointing ___ Amish ___ Bereavement ___ Communion _x__ Myra exploration ___ ___ Life review _x__ Prayer ___ Reconciliation ___ Sacrament of Sick _x__ Supportive presence ___ Wedding ___ Other (describe below) Pastoral Comments patient is surrounded by spouse and two daughters around the bedside; pt immediately indicates his desire to go home or to [facility], (if I have to); pt states my time at the hospital is up ; spouse gives more updates on last four days and how frightened she was at almost him not being here ; family has suffered deaths of two sons-in-law in less than two years; pt is addressed by this glass furnace operator for how he gentry, what has helped him navigate difficulties in the past, and how an attitude of looking for the positives can be helpful; pt becomes tearful and expresses understanding that going to rehab facility will be helpful and can aid in him going home again; questions from family about spiritual care; family and pt welcome words of encouragement and prayers at this time;
--- NOTE | 2023-08-05 15:05 | PCM.TXEXTCAR ---
Diet Diet Order/Speech Therapy: 08/01/23 22:16 Diet: Cardiac - Heart Healthy Food consistency:: Regular Liquid Consistency:: Regular/Thin Dietary Modifications:: Potassium Restricted Is pt able to select menu?: Yes Routine Orders/Code Status Suppository Type: Dulcolax 10mg Suppository Frequency: Daily PRN Routine Lab Work: CBC (2-3 days) and BMP (2-3 days) Code Status: Full Code Therapies Physical Therapy: Eval and Treat Occupational Therapy: Eval and Treat Problem/Diagnosis (1) Acute hyperkalemia: Status: Acute Code(s): E87.5 - Hyperkalemia (2) Acute kidney failure: Status: Acute Code(s): N17.9 - Acute kidney failure, unspecified (3) Acute dehydration: Status: Acute Code(s): E86.0 - Dehydration (4) Acute hypotension: Status: Acute Code(s): I95.9 - Hypotension, unspecified (5) History of cirrhosis: Status: Acute Code(s): Z87.19 - Personal history of other diseases of the digestive system Plan #KYAW- improving #Hyperkalemia- resolved #Hx cirrhosis and varicies #RLS #BPH 83-year-old male with history of cirrhosis and varices, restless leg syndrome, BPH who presented to [facility] 08/01/2023 due to complaints of weakness. 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 He was treated with fluids, holding Lasix and spironolactone as well as BP meds and started on midodrine, and Kayexalate and patient improved significantly. Nephro did see in consultation. On day of discharge still feeling somewhat weak and is agreeable to placement, no other acute complaints. Discharge instructions as follows: -Due to somewhat low blood pressure you have been started on a medication, midodrine, that you will take 3 times daily. As you continue to improve and your blood pressure improves this will likely be able to be discontinued. Would recommend checking blood pressure daily and keeping a log of this. -Your amlodipine and valsartan will be discontinued at this time due to your current blood pressure control, log blood pressure as above as you may require reinitiating in the future -Would recommend lab work (CBC and BMP) to check your platelets, potassium, kidney function in 2 to 3 days through your primary care physician's office. Please call their office upon discharge to obtain order for lab work. -Your diuretics will be held given kidney function and blood pressure -Weigh yourself every day. A sudden weight gain can mean you are retaining fluid. Weigh yourself at the same time of day and in the same kind of clothes. Ideally, weigh yourself first thing in the morning after you empty your bladder, but before you eat breakfast. -Please call your physician if your weight goes up by more than 2 pounds in 1 day or 5 pounds in 1 week. This can be a sign that you are retaining more fluid than you should be. -Please call your primary care provider's office upon discharge to schedule a hospital follow up within 1 week. -For any concerning signs or symptoms please call 911 or proceed to the nearest emergency department Allergies/Procedures Done in Hospital Allergies amoxicillin [From Augmentin] Allergy (Verified 08/01/23 16:54) Other clavulanic acid [From Augmentin] Allergy (Verified 08/01/23 16:54) Other lisinopril Adverse Reaction (Verified 08/01/23 16:54) Other COUGH Procedures: Transthoracic Echo Type of Care/Length of Stay Estimated LOS: Convalescent Care Less Than 30 days Type of Care Needed: Skilled Rehab Potential: Fair Prognosis: Fair Additional Orders/Day of Discharge Day of Discharge: 08/05/23 Dietary and Speech Recommendations Dietitian Recommendations/Changes: Continue Cardiac diet to manage medical conditions. Discharge Plan Admission Admit Date/Time: 08/01/23 20:02 Primary Reason for Your Visit: Generalized weakness Attending Provider: Mireya Gould Primary Care Provider: Adam Lynn Consulting Providers: Ela Flores; Foster Renner; Jasvir Worley Instructions Patient Instructions: ED Cirrhosis, ED Renal Insufficiency, ED Fall Prevention Additional Instructions / Restrictions: DISCHARGE INSTRUCTIONS PLEASE READ *Please take this with you to your next doctors appointment* -Due to somewhat low blood pressure you have been started on a medication, midodrine, that you will take 3 times daily. As you continue to improve and as your blood pressure improves this will likely be able to be discontinued. Would recommend checking blood pressure daily and keeping a log of this. -Your amlodipine and valsartan will be discontinued at this time due to your current blood pressure control, log blood pressure as above as you may require reinitiating in the future -Would recommend lab work (CBC and BMP) to check your platelets, potassium, kidney function in 2 to 3 days through your primary care physician's office. Please call their office upon discharge to obtain order for lab work. -Your diuretics will be held given kidney function and blood pressure -Weigh yourself every day. A sudden weight gain can mean you are retaining fluid. Weigh yourself at the same time of day and in the same kind of clothes. Ideally, weigh yourself first thing in the morning after you empty your bladder, but before you eat breakfast. -Please call your physician if your weight goes up by more than 2 pounds in 1 day or 5 pounds in 1 week. This can be a sign that you are retaining more fluid than you should be. -Please call your primary care provider's office upon discharge to schedule a hospital follow up within 1 week. -For any concerning signs or symptoms please call 911 or proceed to the nearest emergency department Discharge Orders/Prescriptions Prescriptions: New midodrine 5 mg Tablet 5 mg PO TIDCM 30 Days Qty: 90 0RF Continued tamsulosin 0.4 mg Capsule 0.4 mg PO BID ropinirole 0.25 mg Tablet 0.25 mg PO PRN PRN (Reason: restless legs) finasteride 5 mg Tablet 5 mg PO DAILY rosuvastatin 10 mg Tablet 10 mg PO QODAY escitalopram oxalate 5 mg tablet 5 mg PO DAILY Patient Comments: TAKE 1 TABLET BY MOUTH EVERY DAY benzonatate 100 mg capsule 100 mg PO TID nitroglycerin 0.4 mg tablet, sublingual 0.4 mg sublingual Q5M Rx Instructions: do not exceed 3 doses per episode Discontinued valsartan 80 mg Tablet 80 mg PO DAILY amlodipine 5 mg Tablet 5 mg PO DAILY furosemide 40 mg tablet 40 mg PO DAILY spironolactone 50 mg tablet 50 mg PO DAILY Patient Comments: TAKE 2 TABLETS BY MOUTH EVERY DAY Referrals / Follow Up: Adam Lynn MD [Primary Care Provider] - Within 1 Week Disposition Disposition (needs filled in before D/C Order can be placed): Intermediate Facility
--- NOTE | 2023-08-05 15:08 | PCM.DC.SUM ---
Providers Date of Admission: 08/01/23 Date of Discharge: 08/05/23 Primary Care Physician: Dr. Adam Lynn MD Consultations 08/01/23 22:17 Consult: Nephrology Routine Consulting Provider: Foster Renner Reason for Consult: KYAW with hyperkalemia EMERGENT Consult: No MD Notified: Yes Date Notified: 08/01/23 Time Notified: 22:18 Method of Notification: Text Reason For Visit: HYPERKALEMIA, KYAW Diagnosis Discharge Diagnosis (1) Acute hyperkalemia: Status: Acute Code(s): E87.5 - Hyperkalemia (2) Acute kidney failure: Status: Acute Code(s): N17.9 - Acute kidney failure, unspecified (3) Acute dehydration: Status: Acute Code(s): E86.0 - Dehydration (4) Acute hypotension: Status: Acute Code(s): I95.9 - Hypotension, unspecified (5) History of cirrhosis: Status: Acute Code(s): Z87.19 - Personal history of other diseases of the digestive system Plan #KYAW- improving #Hyperkalemia- resolved #Hx cirrhosis and varicies #RLS #BPH Medications at Discharge Home Medications finasteride 5 mg tablet 5 mg PO DAILY BPH 03/09/21 ropinirole 0.25 mg tablet 0.25 mg PO PRN PRN restless legs 03/09/21 rosuvastatin 10 mg tablet 10 mg PO QODAY cholesterol 03/09/21 tamsulosin 0.4 mg capsule 0.4 mg PO BID BPH 03/09/21 benzonatate 100 mg capsule 100 mg PO TID 08/01/23 escitalopram oxalate 5 mg tablet 5 mg PO DAILY 08/01/23 nitroglycerin 0.4 mg sublingual tablet 0.4 mg sublingual Q5M 08/01/23 midodrine 5 mg tablet 5 mg PO TIDCM 30 days #90 tabs 08/05/23 Hospital Course Procedures Transthoracic echo Summary of Care Provided Minutes Spent on Discharge: 32 Hospital Course: 83-year-old male with history of cirrhosis and varices, restless leg syndrome, BPH who presented to [facility] 08/01/2023 due to complaints of weakness. 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 He was treated with fluids, holding Lasix and spironolactone as well as BP meds and started on midodrine, and Kayexalate and patient improved significantly. Nephro did see in consultation. On day of discharge still feeling somewhat weak and is agreeable to placement, no other acute complaints. Discharge instructions as follows: -Due to somewhat low blood pressure you have been started on a medication, midodrine, that you will take 3 times daily. As you continue to improve and your blood pressure improves this will likely be able to be discontinued. Would recommend checking blood pressure daily and keeping a log of this. -Your amlodipine and valsartan will be discontinued at this time due to your current blood pressure control, log blood pressure as above as you may require reinitiating in the future -Would recommend lab work (CBC and BMP) to check your platelets, potassium, kidney function in 2 to 3 days through your primary care physician's office. Please call their office upon discharge to obtain order for lab work. -Your diuretics will be held given kidney function and blood pressure -Weigh yourself every day. A sudden weight gain can mean you are retaining fluid. Weigh yourself at the same time of day and in the same kind of clothes. Ideally, weigh yourself first thing in the morning after you empty your bladder, but before you eat breakfast. -Please call your physician if your weight goes up by more than 2 pounds in 1 day or 5 pounds in 1 week. This can be a sign that you are retaining more fluid than you should be. -Please call your primary care provider's office upon discharge to schedule a hospital follow up within 1 week. -For any concerning signs or symptoms please call 911 or proceed to the nearest emergency department Physical Exam Narrative General: Alert, oriented, no apparent distress HEENT: Atraumatic, normocephalic Eyes: Anicteric, normal conjunctiva, extraocular movements grossly intact Neck: Supple Respiratory: Clear to auscultation bilaterally, normal respiratory effort Cardiovascular: Regular rate and rhythm GI: Soft, nontender, nondistended Extremities: No edema Musculoskeletal: Moving all extremities Neuro: No overt focal neurological deficits Skin: No rashes appreciated Psych: Cooperative Weight / BMI Weight Weight: 78.3 kg Body Mass Index (BMI) 26.2 ABG / Lab / Microbiology Data 08/05/23 05:08 08/05/23 05:08 Laboratory: Laboratory Results - last 24 hr 08/04/23 04:06: Diff Path Review Reviewed 08/05/23 05:08: WBC 5.4, RBC 3.17 L, Hgb 10.5 L, Hct 31.3 L, MCV 98.7 H, MCH 33.1 H, MCHC 33.5, RDW Std Deviation 46.9 H, RDW Coeff of Randi 13.0, Plt Count 43 L*, MPV 10.5, Diff Path Review Reviewed, Sodium 142, Potassium 4.6, Chloride 111 H, Carbon Dioxide 25.0, Anion Gap 6, BUN 49 H, Creatinine 1.73 H, Estim Creat Clear Calc 30.75, Est GFR (MDRD) Af Amer 49 L, Est GFR (MDRD) Non-Af 40 L, BUN/Creatinine Ratio 28.3 H, Glucose 94, Calcium 7.6 L, Total Bilirubin 1.20 H, AST 59 H, ALT 57, Alkaline Phosphatase 184 H, Total Protein 5.5 L, Albumin 2.1 L, Globulin 3.4, Albumin/Globulin Ratio 0.6 L Microbiology: Microbiology 08/01/23 17:55 Blood Culture (Wb) - Arm Left Blood Culture - Preliminary No growth in 48 hours. 08/01/23 17:45 Blood Culture (Wb) - Anticubital Right Blood Culture - Preliminary No growth in 48 hours. 08/01/23 18:30 Urine, Clean Catch Urine Culture - Final Culture exhibits no growth. 08/02/23 02:45 Stool Stool Occult Blood (JOSE M) - Final Occult Blood Positive 08/01/23 18:30 Mucosa - Nose SARS-CoV-2, Influenza & RSV (PCR) - Final Radiography Diagnostic Testing: Radiology Impression Echocardiogram 08/03/23 15:48 Interpretation Summary The estimated ejection fraction is 60 %. Mild diffuse mitral valve thickening. Mild (1+) tricuspid valve insufficiency. Aortic sclerosis, no stenosis. Ordering Physician: Manpreet De La Rosa Referring Physician: Adam Lynn Performed By: Tamia Urbina RDCS, RVT D/C Instructions Discharge Diet: - (DASH diet) Discharge Activity: - (Increase activity as tolerated) Meaningful Use Info Meaningful Use Diagnoses (Choose all that apply): None applicable Discharge Plan Admission Admit Date/Time: 08/01/23 20:02 Primary Reason for Your Visit: Generalized weakness Attending Provider: Mireya Gould Primary Care Provider: Adam Lynn Consulting Providers: Ela Flores; Foster Renner; Jasvir Worley Instructions Patient Instructions: ED Cirrhosis, ED Renal Insufficiency, ED Fall Prevention Additional Instructions / Restrictions: DISCHARGE INSTRUCTIONS PLEASE READ *Please take this with you to your next doctors appointment* -Due to somewhat low blood pressure you have been started on a medication, midodrine, that you will take 3 times daily. As you continue to improve and as your blood pressure improves this will likely be able to be discontinued. Would recommend checking blood pressure daily and keeping a log of this. -Your amlodipine and valsartan will be discontinued at this time due to your current blood pressure control, log blood pressure as above as you may require reinitiating in the future -Would recommend lab work (CBC and BMP) to check your platelets, potassium, kidney function in 2 to 3 days through your primary care physician's office. Please call their office upon discharge to obtain order for lab work. -Your diuretics will be held given kidney function and blood pressure -Weigh yourself every day. A sudden weight gain can mean you are retaining fluid. Weigh yourself at the same time of day and in the same kind of clothes. Ideally, weigh yourself first thing in the morning after you empty your bladder, but before you eat breakfast. -Please call your physician if your weight goes up by more than 2 pounds in 1 day or 5 pounds in 1 week. This can be a sign that you are retaining more fluid than you should be. -Please call your primary care provider's office upon discharge to schedule a hospital follow up within 1 week. -For any concerning signs or symptoms please call 911 or proceed to the nearest emergency department Discharge Orders/Prescriptions Prescriptions: New midodrine 5 mg Tablet 5 mg PO TIDCM 30 Days Qty: 90 0RF Continued tamsulosin 0.4 mg Capsule 0.4 mg PO BID ropinirole 0.25 mg Tablet 0.25 mg PO PRN PRN (Reason: restless legs) finasteride 5 mg Tablet 5 mg PO DAILY rosuvastatin 10 mg Tablet 10 mg PO QODAY escitalopram oxalate 5 mg tablet 5 mg PO DAILY Patient Comments: TAKE 1 TABLET BY MOUTH EVERY DAY benzonatate 100 mg capsule 100 mg PO TID nitroglycerin 0.4 mg tablet, sublingual 0.4 mg sublingual Q5M Rx Instructions: do not exceed 3 doses per episode Discontinued valsartan 80 mg Tablet 80 mg PO DAILY amlodipine 5 mg Tablet 5 mg PO DAILY furosemide 40 mg tablet 40 mg PO DAILY spironolactone 50 mg tablet 50 mg PO DAILY Patient Comments: TAKE 2 TABLETS BY MOUTH EVERY DAY Referrals / Follow Up: Adam Lynn MD [Primary Care Provider] - Within 1 Week Disposition Disposition (needs filled in before D/C Order can be placed): Senior Living Facility Charges/Coding Visit Charges Inpatient E&M: 25007 Disch Hosp >30min
[2023-08-05 16:00] VITALS: BP 113/60; PULSE 54; RESP 18; TEMP 36.7; O2SAT 96
--- NOTE | 2023-08-05 16:41 | CASEMGMT ---
Discharge Planning Discharge orders, signed med list, covid results, and transport time sent to [facility] via [facility]. Physicians will transport patient by wheelchair at 5p. Nursing, SW, patient, and his family updated. Barbara Pizarro, Discharge Planning Asst.
[2023-08-06 09:35] LABS: Pathologist Review Reviewed
== END 2023-08-05 17:20 | DRG 683 ==
LOC: ED 19:32 → ICU 20:13
PROVIDERS: Internal Medicine; Admitting Provider Student in an Organized Health Care Education/Training Program; Emergency Provider Emergency Medicine; PCP Family Medicine; Visit Provider Internal Medicine
DX: N17.9 Acute kidney failure, unspecified (principal); N13.8 Other obstructive and reflux uropathy; K74.60 Unspecified cirrhosis of liver; D69.59 Other secondary thrombocytopenia; I95.9 Hypotension, unspecified; E86.0 Dehydration; G25.81 Restless legs syndrome; F32.A Depression, unspecified; I10 Essential (primary) hypertension; E78.00 Pure hypercholesterolemia, unspecified; E87.5 Hyperkalemia; N40.1 Benign prostatic hyperplasia with lower urinary tract symptoms; R53.81 Other malaise; Z79.899 Other long term (current) drug therapy; Z86.16 Personal history of COVID-19; Z87.891 Personal history of nicotine dependence
CPT/HCPCS: 71045; 76770; 80048; 80053; 81001; 82274; 82533; 82962; 83605; 83735; 84100; 84484; 85025; 85027; 85610; 85730; 86850; 86900; 86901; 87040; 87086; 87631; 87811; 93005; 93306; 94640; 97116; 97162; 97166; 97530; 97535; 99285; 99406; J7030; J7040; J7120; A4216; J0612

== ENCOUNTER 2024-01-20 13:21 | Emergency (ER) | payer MEDICARE, OTHER, SELFPAY ==
[2024-01-20 13:22] VITALS: BP 122/67; PULSE 50; RESP 16; TEMP 36.3; O2SAT 96; BMI 28.0
--- NOTE | 2024-01-20 14:21 | CT_ITS ---
STUDY: CT ABDOMEN AND PELVIS WITH CONTRAST REASON FOR EXAM: Male, 83 years old. Abdominal distention, hx of liver CA RADIATION DOSAGE (If Supplied By Facility): CTDIvol = ( 20.06 ) mGy, DLP = ( 1035.56 ) mGycm TECHNIQUE: IV 100mL Isovue-300 was administered. Transaxial images were obtained from the dome of the diaphragm to the symphysis pubis in the arterial, nephrographic and excretory phases. Multiplanar coronal and sagittal images were reformatted. The protocol utilizes one or more of the following dose reduction techniques: automated exposure control, adjustment of mA and/or kV according to patient size,and/or use of iterative reconstruction technique. COMPARISON: No relevant prior comparison study available FINDINGS: Lower lungs demonstrate small bilateral pleural effusions and atelectatic changes in the lower lobes. The visualized portions of the heart are within normal limits. There is decreased attenuation of the liver consistent with steatosis. Isodense mass arising from the peripheral aspect of the left lobe of the liver measuring about 4 x 2.5 cm. Malignancy cannot be excluded.. Large gallstone. Moderate splenomegaly. Normal pancreas. Normal bilateral adrenal glands. Bilateral renal cysts appears to be simple, the largest is in the left kidney measuring about 4 cm. Atrophic changes and scarring of the lower pole of the left kidney. No evidence of hydronephrosis. Normal visualized stomach. Normal small intestine. Number diverticulosis of the sigmoid and descending colon without evidence of acute diverticulitis. Thickening of the ascending colon could be due to underdistention. Colitis is less likely. The appendix is visualized and appears normal. There is diffuse atherosclerotic calcification of the abdominal aorta, without a demonstrated aneurysm. No retroperitoneal adenopathy. Mild ascites around the liver, spleen and pelvic region. Collateral veins in the splenic hilum extending to the portal vein and of the gastroesophageal junction. Normal urinary bladder. Small left inguinal hernia containing fat. Multilevel degenerative changes of the spine worse at the level of L2-L3 with mild retrolisthesis of L2 over L3. CT/Abdomen/Pelvis W IV Cont ONLY IMPRESSION: 1. Cirrhosis of the liver with stigmata of portal venous hypertension including splenomegaly, ascites and varices including varices of the gastroesophageal junction. 2. Solid mass in the left lobe of the liver. Malignancy cannot be excluded. 3. Diverticulosis without evidence of acute diverticulitis. 4. Gallstones. 5. Thickening of the ascending colon likely due to underdistention. Colitis is less likely.. Electronically Signed: Eb Pereyra MD at 15:57 EDT ,
--- NOTE | 2024-01-20 14:21 | EKG12_ITS ---
Test Reason : EDEMA Blood Pressure : / mmHG Vent. Rate : 053 BPM Atrial Rate : 053 BPM P-R Int : 226 ms QRS Dur : 076 ms QT Int : 580 ms P-R-T Axes : 045 -16 020 degrees QTc Int : 544 ms Sinus bradycardia with 1st degree A-V block with Premature atrial complexes Nonspecific T wave changes Abnormal ECG Confirmed by Brandan Jacobs ([id number]), editor news JINNY MENDOZA ([id number]) on 01/21/2024 8:34:13 AM Referred By: Confirmed By:Brandan Jacobs
--- NOTE | 2024-01-20 14:21 | VDLE_ITS ---
Reason For Study: Bilateral leg swelling RIGHT LEFT GSV is normal. GSV is normal. CFV is compressible, spontaneous, phasic, CFV is compressible, spontaneous, phasic, competent and demonstrates normal competent, and demonstrates normal augmentation. augmentation. FV is compressible, spontaneous, phasic, FV is compressible, spontaneous, phasic, competent and demonstrates normal competent and demonstrates normal augmentation. augmentation. POP V is compressible, spontaneous, phasic, POP V is compressible, spontaneous, phasic, competent and demonstrates normal competent and demonstrates normal augmentation. augmentation. T/P Trunk is compressible. T/P Trunk is compressible. PTV is compressible. PTV is compressible. RT PerV is compressible. LT PerV is compressible. Procedure This is a venous duplex using B-mode, color flow and spectral Doppler. Exam performed portable in ED. A preliminary report was called and/or faxed to ED. VL/Venous Duplex US - Gage Extrem Interpretation Summary No evidence for acute deep venous thrombosis bilateral lower extremities with p atent and compressible bilateral great saphenous veins. Ordering Physician: Mac Tariq Referring Physician: MD Leah Adam Performed By: Penny Arriaga RVT and Student
--- NOTE | 2024-01-20 14:23 | EX.ED.DYSGE1 ---
HPI History of Present Illness Chief Complaint: Edema Detail of Chief Complaint: Edema and weight gain Informant: patient Narrative Narrative: Patient presents emergency department plaint of edema in his abdomen and lower extremities ongoing for about a month. Patient states that he is a liver cancer patient in September received chemo and radiation at [facility]. Patient has gained about 28 pounds in the last month. He denies chest pain or shortness of breath. His daughter states that few months ago he was treated for kidney failure that was thought to be due to diuretics. Patient also complained of some lower back pain that has had for several months. Denies any pain radiating down the legs or weakness to the extremities. Denies recent travel or surgery. [facility] Medical History Anemia due to gastrointestinal blood loss Bleeding external hemorrhoids BPH (benign prostatic hyperplasia) Bruising Depression Former smoker High cholesterol History of COVID-19 History of diverticulitis History of stress test Hx of fracture of rib Hypertension Macular degeneration Pilonidal cyst Prostate disease Restless legs Wears dentures Home Medications ?Medication ?Instructions ?Recorded ?Last Taken ?Type finasteride 5 mg tablet 5 mg PO DAILY BPH 03/09/21 03/09/21 History ropinirole 0.25 mg tablet 0.25 mg PO PRN PRN restless legs 03/09/21 Unknown History rosuvastatin 10 mg tablet 10 mg PO QODAY cholesterol 03/09/21 03/08/21 History tamsulosin 0.4 mg capsule 0.4 mg PO BID BPH 03/09/21 03/09/21 History benzonatate 100 mg capsule 100 mg PO TID 08/01/23 Unknown History escitalopram oxalate 5 mg tablet 5 mg PO DAILY 08/01/23 Unknown History nitroglycerin 0.4 mg sublingual 0.4 mg sublingual Q5M 08/01/23 Unknown History tablet midodrine 5 mg tablet 5 mg PO TIDCM 30 days #90 tabs 08/05/23 Unknown Rx furosemide 20 mg tablet (Lasix) 20 mg PO DAILY #30 tabs 01/20/24 Unknown Rx Allergy/AdvReac Type Severity Reaction Status Date / Time amoxicillin (From Augmentin) Allergy Other Verified 01/20/24 13:24 clavulanic acid (From Allergy Other Verified 01/20/24 13:24 Augmentin) lisinopril AdvReac Other Verified 01/20/24 13:24 Family History Mother Cancer Sister Cancer Other Heart disease Surgical History History of cataract surgery History of excision of pilonidal cyst History of herniorrhaphy Social History household members: none Smoking Status: Former smoker alcohol intake: current alcohol intake frequency: other substance use type: does not use ROS ROS ED Review of Systems ROS Unobtainable: other Constitutional Constitutional ED: Reports lethargy; Denies chills, fever(s), sweats or weight loss Eyes Eyes: Denies blurry vision, change in vision or diplopia ENT ENT ED: Denies rhinorrhea or sore throat Cardiovascular Cardiovascular: Denies chest pain, orthopnea or racing heartbeat Respiratory/Chest Respiratory/Chest: Denies cough, dyspnea, dyspnea on exertion, orthopnea or sputum Gastrointestinal Gastrointestinal: Reports other Details: Abdominal distention ; Denies abdominal pain, diarrhea, nausea or vomiting Genitourinary Genitourinary ED: Denies dysuria, hematuria or urinary frequency Musculoskeletal Musculoskeletal: Reports other Details: Bilateral leg edema ; Denies arthralgias, back pain, myalgias or neck pain Integumentary Denies abscess, Abrasions or rash Neurologic Neurologic: Denies headache(s) or weakness Psychiatric Psychiatric: Denies anxiety, depression or suicidal thoughts Endocrine Endocrinology: Denies polydipsia, polyphagia or polyuria Hematologic/Lymphatic Hematologic/Lymphatic: Denies easy bleeding, easy bruising or lymphadenopathy Allergic/Immunologic Allergic/Immunologic ED: Denies mouth swelling, tongue swelling or urticaria EXAM Physical Exam Const Vital Signs: 01/20/24 13:22 01/20/24 14:16 01/20/24 15:37 Temperature 97.4 F L Temperature Source Temporal Pulse Rate 50 L 46 L Respiratory Rate 16 21 H Respiratory Effort Normal Blood Pressure 122/67 H 157/63 H Blood Pressure Mean 85 94 Pulse Ox 96 96 Oxygen Delivery Method Room Air Room Air Positive well nourished and well developed General Appearance ED: well developed and NAD HEENT Reports TM's clear and moist mucous membranes normocephalic and atraumatic; Negative for trauma or tenderness Tympanic Membrane ED: Yes TM's clear Eyes PERRL and EOMs intact bilaterally General Eye ED: Negative for pale conjunctiva or scleral icterus Neck no lymphadenopathy, supple and no JVD General: Negative for tenderness Chest Wall inspection of chest normal and palpation of chest normal Chest: Negative for tenderness Resp normal respiratory effort and clear to auscultation bilaterally Effort and Inspection: Negative for respiratory distress or pain with movement Auscultation: Negative for rhonchi, wheezes or diminished lung sounds Cardio regular rate, regular rhythm, S1 normal heart sound, S2 normal heart sound and no murmurs Peripheral Pulses: pulses 2+ throughout GI normal to inspection, nondistended, normoactive bowel sounds, soft to palpation, non-tender and no masses; Negative for non-distended GI Narrative: Slightly distended abdomen with small fluid wave. There is no erythema or warmth. No tenderness on exam. Back/Spine no CVA tenderness and no thoracic nor lumbar tenderness Extremity normal to inspection Extremity Narrative: +2 edema both lower extremities General Extremety ED: Yes edema General Extremity: edema Neuro oriented x3, CN's II-XII intact bilaterally, no sensory deficits noted and gait normal Sensorium / Orientation: awake, alert, oriented to person, oriented to place and oriented to time Motor Exam: strength 5/5 throughout and strength abnormal Psych mental status grossly normal Skin no rashes or lesions noted and no wounds MDM MDM MDM Narrative Medical decision making narrative: Patient presents to the emergency department with edema and weight gain over the last month. He is got a history of liver cancer. Patient also sees a liver specialist. IV line established. Venous Dopplers of both lower extremities obtained were negative for DVT. CBC with differential obtained showed a white count of 4.1 with hemoglobin 11.5 and platelet count of 62,000. Chemistries unremarkable. BUN 17 and creatinine 1.4. Glucose 117. LFTs showed an AST of 37 ALT of 24 and alkaline phosphatase of 165. BNP was 278. I did obtain a CT scan of the abdomen pelvis with IV contrast that showed ascites as well as cirrhosis and portal hypertension. Patient noted to have varices at the GE junction. Clinically he is stable and looks well. Will discuss case with his PCP to determine if diuretic therapy would be beneficial to help with some of his edema. Discussed case with Dr. Adam Lynn who agreed with starting diuretic therapy with 20 mg of Lasix daily. I also discussed case with his [facility] liver specialist coordinator who will make note and discussed with his liver specialist as they were under the impression that he was on a diuretic currently which she is not. Lab Data Attestation: I reviewed the patient's lab results. Labs: Laboratory Results - last 24 hr 01/20/24 14:30 WBC 4.1 L RBC 3.38 L Hgb 11.5 L Hct 34.9 L MCV 103.3 H MCH 34.0 H MCHC 33.0 RDW Std Deviation 52.8 H RDW Coeff of Randi 14.0 Plt Count 62 L MPV 10.3 Immature Gran % (Auto) 0.200 Neut % (Auto) 66.7 Lymph % (Auto) 17.[address] [place] % (Auto) 9.2 Eos % (Auto) 5.6 H Baso % (Auto) 0.7 Absolute Neuts (auto) 2.8 Absolute Lymphs (auto) 0.73 L Nucleated RBC % 0 Sodium 142 Potassium 4.2 Chloride 115 H Carbon Dioxide 25.0 Anion Gap 2 L BUN 17 Creatinine 1.41 H Estim Creat Clear Calc 41.08 Est GFR (MDRD) Af Amer 62 Est GFR (MDRD) Non-Af 51 L BUN/Creatinine Ratio 12.1 Glucose 117 H Calcium 8.6 Total Bilirubin 1.90 H AST 37 ALT 24 Alkaline Phosphatase 165 H Troponin I High Sens 13 B-Natriuretic Peptide 278.4 H Total Protein 6.0 L Albumin 2.6 L Globulin 3.4 Albumin/Globulin Ratio 0.8 L Radiography Diagnostic Testing: Clinical Impression(s) from Imaging Studies Abdomen/Pelvis CT 01/20/24 14:21 IMPRESSION: 1. Cirrhosis of the liver with stigmata of portal venous hypertension including splenomegaly, ascites and varices including varices of the gastroesophageal junction. 2. Solid mass in the left lobe of the liver. Malignancy cannot be excluded. 3. Diverticulosis without evidence of acute diverticulitis. 4. Gallstones. 5. Thickening of the ascending colon likely due to underdistention. Colitis is less likely.. Electronically Signed: Eb Pereyra MD at 15:57 EDT , Venous Doppler Study 01/20/24 14:21 Interpretation Summary No evidence for acute deep venous thrombosis bilateral lower extremities with patent and compressible bilateral great saphenous veins. Ordering Physician: Mac Tariq Referring Physician: MD Adam Lynn Performed By: Penny Arriaga RVT and Student Initial EKG: Attestation: I personally reviewed and interpreted this EKG as follows: Comments: Sinus bradycardia with rate of 53 bpm with first-degree AV block and PACs. Discharge Plan Triage Chief Complaint: Edema ED Provider: Mac Tariq Dx/Rx/DC Orders Clinical Impression: Edema, Cirrhosis of liver, History of liver cancer Prescriptions: New furosemide [Lasix] 20 mg tablet 20 mg PO DAILY Qty: 30 0RF No Action tamsulosin 0.4 mg Capsule 0.4 mg PO BID ropinirole 0.25 mg Tablet 0.25 mg PO PRN PRN (Reason: restless legs) finasteride 5 mg Tablet 5 mg PO DAILY rosuvastatin 10 mg Tablet 10 mg PO QODAY escitalopram oxalate 5 mg tablet 5 mg PO DAILY Patient Comments: TAKE 1 TABLET BY MOUTH EVERY DAY benzonatate 100 mg capsule 100 mg PO TID nitroglycerin 0.4 mg tablet, sublingual 0.4 mg sublingual Q5M Rx Instructions: do not exceed 3 doses per episode midodrine 5 mg Tablet 5 mg PO TIDCM 30 Days Qty: 90 0RF Primary Care Provider: Adam Lynn Referrals: Adam Lynn MD [Primary Care Provider] - 5-7 Days Print Language: [place] Islander Disposition Disposition: Home, Self Care
[2024-01-20 14:47] LABS: Absolute Lymphocyte Count 0.73 X10^3/uL (0.83-4.51); Absolute Neutrophil Count 2.8 X10^3/uL (2.0-7.7); Basophil# 0.03 X10^3/uL; Basophil% 0.7 % (0-1); Eosinophil# 0.23 X10^3/uL; Eosinophils% 5.6 % (0-5); Hematocrit 34.9 % (40-54); Hemoglobin 11.5 g/dL (13.0-16.5); Lymphocyte # 0.73 X10^3/ul (0.83-4.51); Lymphocyte % 17.6 % (19-41); Mean Corpuscular Volume 103.3 fL (80-94); Mean Platelet Vol. 10.3 fl (6.2-12.0); Monocyte# 0.38 X10^3/uL; Monocyte% 9.2 % (0-10); NRBC Flagged by Analyzer 0 % (0-5); Neutrophil # 2.76 X10^3/uL (2.7-7.7); Neutrophil % 66.7 % (47-70); POSITIVE COUNT YES; Platelet Count 62 K/mm3 (150-450); RBC Distribution Width SD 52.8 fl (35.1-43.9); Red Blood Count 3.38 M/mm3 (4.6-6.2); White Blood Count 4.1 K/mm3 (4.4-11.0)
[2024-01-20 15:01] LABS: ALB/GLOB Ratio 0.8 RATIO (0.9-2.4); AST(SGOT) 37 U/L (15-37); Alanine Aminotransfer ALT/SGPT 24 U/L (16-61); Albumin, Serum 2.6 g/dL (3.2-5.0); Alkaline Phosphatase 165 U/L (45-117); Anion Gap 2 (5-15); BUN 17 mg/dL (7-18); BUN/Creat Ratio 12.1 RATIO (10-20); Calcium,Total 8.6 mg/dL (8.5-10.1); Chloride 115 mmol/L (98-107); Creatinine, Serum 1.41 mg/dL (0.70-1.30); EST Glomerular Filtration Rate 51 mL/min (>60); Est Glom Filt Rate - Afr Amer 62 mL/min (>60); Estimated Creatinine Clearance 41.08 ml/min; Globulin 3.4 g/dL (2.2-4.2); Glucose 117 mg/dL (74-106); Potassium 4.2 mmol/L (3.5-5.1); Sodium Level 142 mmol/L (136-145); Troponin-I HS 13 pg/mL (3.0-78.0)
[2024-01-20 15:04] LABS: BNP,B-Type NATRIURETIC PEPTIDE 278.4 pg/mL (0-100)
[2024-01-20 15:37] VITALS: BP 157/63; PULSE 46; RESP 21; O2SAT 96
[2024-01-20 16:29] VITALS: BP 150/80; PULSE 48; RESP 17; TEMP 36.8; O2SAT 98
== END 2024-01-20 16:36 | disposition home or self-care (01) ==
PROVIDERS: Emergency Provider Emergency Medicine; PCP Family Medicine; Visit Provider Emergency Medicine
DX: M79.89 Other specified soft tissue disorders (principal); K74.60 Unspecified cirrhosis of liver; Z87.891 Personal history of nicotine dependence; Z86.16 Personal history of COVID-19
CPT/HCPCS: 74177; 80053; 83880; 84484; 85025; 93005; 93970; 99283; Q9967; A4216

== ENCOUNTER 2024-03-17 12:38 | Emergency (ER) | payer MEDICARE, OTHER, SELFPAY ==
[2024-03-17 12:39] VITALS: BP 136/59; PULSE 56; RESP 14; TEMP 36.2; O2SAT 95; BMI 31.3
--- NOTE | 2024-03-17 12:46 | EX.ED.DYSGE1 ---
HPI History of Present Illness Chief Complaint: Edema [facility] Medical History Anemia due to gastrointestinal blood loss Bleeding external hemorrhoids BPH (benign prostatic hyperplasia) Bruising Depression Former smoker High cholesterol History of COVID-19 History of diverticulitis History of stress test Hx of fracture of rib Hypertension Macular degeneration Pilonidal cyst Prostate disease Restless legs Wears dentures Home Medications ?Medication ?Instructions ?Recorded ?Last Taken ?Type finasteride 5 mg tablet 5 mg PO DAILY BPH 03/09/21 03/09/21 History ropinirole 0.25 mg tablet 0.25 mg PO PRN PRN restless legs 03/09/21 Unknown History rosuvastatin 10 mg tablet 10 mg PO QODAY cholesterol 03/09/21 03/08/21 History tamsulosin 0.4 mg capsule 0.4 mg PO BID BPH 03/09/21 03/09/21 History benzonatate 100 mg capsule 100 mg PO TID 08/01/23 Unknown History escitalopram oxalate 5 mg tablet 5 mg PO DAILY 08/01/23 Unknown History nitroglycerin 0.4 mg sublingual 0.4 mg sublingual Q5M 08/01/23 Unknown History tablet midodrine 5 mg tablet 5 mg PO TIDCM 30 days #90 tabs 08/05/23 Unknown Rx furosemide 20 mg tablet (Lasix) 20 mg PO DAILY #30 tabs 01/20/24 Unknown Rx Allergy/AdvReac Type Severity Reaction Status Date / Time amoxicillin (From Augmentin) Allergy Other Verified 03/17/24 12:41 clavulanic acid (From Allergy Other Verified 03/17/24 12:41 Augmentin) lisinopril AdvReac Other Verified 03/17/24 12:41 Family History Mother Cancer Sister Cancer Other Heart disease Surgical History History of cataract surgery History of excision of pilonidal cyst History of herniorrhaphy Social History household members: none Smoking Status: Former smoker alcohol intake: current alcohol intake frequency: other substance use type: does not use EXAM Physical Exam Const Vital Signs: 03/17/24 12:39 03/17/24 13:12 03/17/24 14:56 Temperature 97.2 F L Temperature Source Temporal Pulse Rate 56 L 52 L Respiratory Rate 14 19 H Respiratory Effort Short of Breath Blood Pressure 136/59 H 129/69 H Blood Pressure Mean 84 89 Pulse Ox 95 97 Oxygen Delivery Method Room Air Room Air 03/17/24 15:29 03/17/24 15:42 Temperature Temperature Source Pulse Rate 52 L 54 L Respiratory Rate 19 H 21 H Respiratory Effort Blood Pressure 144/61 H 107/94 H Blood Pressure Mean 88 98 Pulse Ox 95 96 Oxygen Delivery Method Room Air Room Air [facility] Narrative Medical decision making narrative: HISTORY OF PRESENT ILLNESS: 83-year-old male with history of liver cirrhosis presents with abdominal lower extremity swelling. Notes he was sent in by his liver specialist he further states he has had chronic swelling of the abdomen which is worse with last several days. States he reported this to his liver doctor who told to come to the emergency department immediately. He denies fever, abdominal pain, urinary complaints. No melena, hematochezia, hemoptysis, hematemesis noted. Notes abdominal fullness and some shortness of breath with exertion. REVIEW OF SYSTEMS: Pertinent positives: Abdominal bloating Pertinent negatives: As per HPI PHYSICAL EXAM: Nursing triage notes reviewed, Vital signs reviewed Constitutional: please see [facility] HENT: MMM Eyes: Pupils equal round and reactive to light, Extraocular muscles intact Neck: No stridor, no JVD, full neck ROM Lungs: Clear to auscultation, No wheezing or rales. No increased work of breathing, no conversational dyspnea, no accessory muscle use, no nasal flaring. No respiratory distress noted Heart: Regular rate and rhythm, No murmurs, No rubs and No gallops, 2+ distal pulses (radial, femoral, posterior tibial) in all extremities Abdomen: Tense ascites noted, spider angiomata noted, no peritoneal signs noted. Abdominal masses, no auscultated abdominal bruit : No CVAT Extremities: No edema Neuro: No focal neurological deficits, cranial nerves II through XII intact, 5/5 strength in all extremities. Intact sensation to light touch in all extremities, 2+ reflexes bilateral patella tendons. Normal gait. No ataxia. Skin: No rash or lesions noted MEDICAL DECISION MAKING: Chief Complaint: Abdomen leg External records reviewed: Reviewed prior hospitalization from July 2023. Echocardiogram 2023 shows ejection fraction 60%. Further imaging studies reviewed: Reviewed CT scan abdomen pelvis from January 2024 which showed liver cirrhosis, portal venous hypertension, splenomegaly, ascites and varices, liver mass Factors affecting care: Cirrhosis, esophageal varices, hyperlipidemia, BPH Social determinants of health: none History obtained from others: Family Consults: none MDM Narrative: The patient was initially hemodynamically stable, afebrile and nontoxic-appearing. Exam without specific tenderness but there is tense ascites positive fluid wave despite antibiotic and other stigmata of liver disease. The patient was not complaining of shortness of breath or palpitation to suggest CHF, arrhythmia or ACS I considered the following differential diagnosis: Ascites and/or decompensated cirrhosis, CHF, electrolyte disturbance, arrhythmia, ACS, SBP. ALL IMAGES (IF OBTAINED) HAVE BEEN PERSONALLY REVIEWED AND INTERPRETED BY MYSELF. EKG shows normal sinus rhythm, normal axis, normal intervals, no STEMI CBC with no leukocytosis, mild anemia, noted severe thrombocytopenia. Similar to prior BMP with no significant Katie normalities, no signs of metabolic acidosis with normal bicarb, no signs of endorgan hypoperfusion, no acute kidney injury LFTs with baseline hyperbilirubinemia, consistent hypoalbuminemia Lipase is wnl indicating no pancreatic inflammation. PT elevated consistent coagulopathy, INR within normal limits PTT also elevated consistent with coagulopathy Awaiting paracentesis cell count Cell count was less than 250 cells per cubic meter squared making SBP less likely this along with his afebrile nontoxic appearance makes this much less likely. After removing 2 L by paracentesis patient felt symptomatically better he is appropriate for discharge home as it is no indication for admission at this time. Encouraged him to continue to follow with his liver specialist at outside hospital system as well as gave him gastroenterology follow-up here to schedule outpatient paracentesis in the future if necessary Procedure: Paracentesis Indication: Large ascites fluid collection Consent: Written Risks explained: Bleeding, infection, bowel injury, and hypotension. Anesthesia: 1% lidocaine with epinephrine. Using ultrasound guidance, a paracentesis needle the left lower quadrant was aspirated. The patient tolerated the procedure well. There were no complications. Fluid: The appearance of the fluid was yellow the volume that was aspirated was 2000 cc of fluid. The procedure was performed by James Quintero DO The patient and/or family, caregivers express understanding. The patient and/or family, caregivers agrees with the plan. Shared decision making: I will have a discussion with the patient and or visitors regarding risk/benefits of further testing or admission. They will be made aware of of the risk/benefits inherent in this decision they will be given the opportunity to voice understanding. Total critical care time today provided was at least 0 minutes. This excludes separately billable procedures. Critical care time (if documented) is secondary to the patient having high probability of clinically significant/life threatening deterioration in the patient's condition which required my urgent intervention. Impression: 1. Ascites 2. History of liver cirrhosis 3. Chronic hyperbilirubinemia 4. Chronic thrombocytopenia 5. Coagulopathy 6. Anemia Dispo: This note was generated with [employer] dictation software. It may contain incorrect words, spelling, and punctuation that were not noted in review of the chart prior to signing. Lab Data Labs: Laboratory Results - last 24 hr 03/17/24 03/17/24 13:09 15:08 WBC 3.9 L RBC 3.38 L Hgb 11.3 L Hct 34.5 L MCV 102.1 H MCH 33.4 H MCHC 32.8 RDW Std Deviation 51.4 H RDW Coeff of Randi 13.7 Plt Count 62 L MPV 10.6 Immature Gran % (Auto) 0.300 Neut % (Auto) 78.5 H Lymph % (Auto) 7.4 L [place] % (Auto) 7.9 Eos % (Auto) 4.9 Baso % (Auto) 1.0 Absolute Neuts (auto) 3.1 Absolute Lymphs (auto) 0.29 L Nucleated RBC % 0 PT 16.8 H INR 1.4 APTT 37.1 H Sodium 144 Potassium 3.8 Chloride 109 H Carbon Dioxide 27.0 Anion Gap 8 BUN 24 H Creatinine 1.60 H Estim Creat Clear Calc 35.72 Est GFR (MDRD) Af Amer 53 L Est GFR (MDRD) Non-Af 44 L BUN/Creatinine Ratio 15.0 Glucose 196 H Calcium 8.6 Total Bilirubin 1.90 H Direct Bilirubin 0.85 H AST 37 ALT 23 Alkaline Phosphatase 177 H Total Protein 5.9 L Albumin 2.2 L Globulin 3.7 Lipase 65 Fluid WBC 0.125 Fluid Tot Cell Count 0.194 Fld Polynuclear WBCs # 0.033 Fld Polynuclear WBCs % 26.4 Fluid Mononuclear WBCs 0.092 Fld Mononuclear WBCs % 73.6 Radiography Diagnostic Testing: Clinical Impression(s) from Imaging Studies Chest X-Ray 03/17/24 13:05 IMPRESSION: No acute abnormality is seen. Electronically Signed: John Aguilar MD at 13:39 EDT , Discharge Plan Triage Chief Complaint: Edema ED Provider: James Quintero Dx/Rx/DC Orders Clinical Impression: History of cirrhosis, Abdominal ascites Instructions: ED Ascites, ED Cirrhosis Prescriptions: No Action tamsulosin 0.4 mg Capsule 0.4 mg PO BID ropinirole 0.25 mg Tablet 0.25 mg PO PRN PRN (Reason: restless legs) finasteride 5 mg Tablet 5 mg PO DAILY rosuvastatin 10 mg Tablet 10 mg PO QODAY escitalopram oxalate 5 mg tablet 5 mg PO DAILY Patient Comments: TAKE 1 TABLET BY MOUTH EVERY DAY benzonatate 100 mg capsule 100 mg PO TID nitroglycerin 0.4 mg tablet, sublingual 0.4 mg sublingual Q5M Rx Instructions: do not exceed 3 doses per episode midodrine 5 mg Tablet 5 mg PO TIDCM 30 Days Qty: 90 0RF furosemide [Lasix] 20 mg tablet 20 mg PO DAILY Qty: 30 0RF Primary Care Provider: Adam Lynn Referrals: Darian Loera DO [Med Staff - Active Staff] - Activity Restrictions/Additional Instructions: Thank you for trusting us with your care today! Your clinical presentation, labs images were consistent with decompensated cirrhosis. A paracentesis was performed to remove intra-abdominal fluid that we call ascites. 2 L were removed. There is no sign of infection (AKA spontaneous bacterial peritonitis). Please take ibuprofen (2 pills, 400 mg) every 6 hours as needed for pain and fever control. Please return to the emergency department if your symptoms change or worsen. Specifically develop shortness of breath, fever, severe abdominal pain, vomiting blood or blood in your stool or black stool Please follow with your liver physician with [facility] as well as local gastroenterology (Dr. Loera) for further outpatient evaluation and management. Print Language: [place] Disposition Disposition: Home, Self Care
--- NOTE | 2024-03-17 13:02 | EKG12_ITS ---
Test Reason : Blood Pressure : / mmHG Vent. Rate : 051 BPM Atrial Rate : 000 BPM P-R Int : 000 ms QRS Dur : 080 ms QT Int : 508 ms P-R-T Axes : 000 -14 009 degrees QTc Int : 468 ms Sinus bradycardia Abnormal ECG Confirmed by Brandan Jacobs ([id number]), news copy editor JINNY MENDOZA ([id number]) on 03/18/2024 10:14:24 AM Referred By: Confirmed By:Brandan Jacobs
--- NOTE | 2024-03-17 13:05 | RAD_ITS ---
STUDY: X-RAY CHEST REASON FOR EXAM: Male, 83 years old. Edema TECHNIQUE: Single AP portable view of the chest. COMPARISON: Comparison is made with prior study August 01, 2023. FINDINGS: Stable mild elevation of the right hemidiaphragm. The lungs are clear and expanded. There is no demonstrated pleural abnormality. Normal size heart. Normal mediastinum and len. Normal visualized pulmonary arteries. There is atherosclerotic tortuosity of the aortic arch and descending thoracic aorta. There are degenerative changes of the visualized thoracic spine. Stable healed right fifth sixth and seventh rib fractures. There is no demonstrated abnormality of the visualized soft tissue structures of the upper abdomen. RAD/Chest 1 View (Portable) IMPRESSION: No acute abnormality is seen. Electronically Signed: John Aguilar MD at 13:39 EDT ,
[2024-03-17 13:23] LABS: Absolute Lymphocyte Count 0.29 X10^3/uL (0.83-4.51); Absolute Neutrophil Count 3.1 X10^3/uL (2.0-7.7); Basophil# 0.04 X10^3/uL; Eosinophil# 0.19 X10^3/uL; Eosinophils% 4.9 % (0-5); Hematocrit 34.5 % (40-54); Hemoglobin 11.3 g/dL (13.0-16.5); Lymphocyte # 0.29 X10^3/ul (0.83-4.51); Lymphocyte % 7.4 % (19-41); Mean Corp Hgb Conc 32.8 g/dL (32-36); Mean Corpuscular Hgb 33.4 pg (27.0-32.0); Mean Corpuscular Volume 102.1 fL (80-94); Mean Platelet Vol. 10.6 fl (6.2-12.0); Monocyte# 0.31 X10^3/uL; Monocyte% 7.9 % (0-10); NRBC Flagged by Analyzer 0 % (0-5); Neutrophil # 3.07 X10^3/uL (2.7-7.7); Neutrophil % 78.5 % (47-70); POSITIVE COUNT YES; POSITIVE DIFFERENTIAL YES; Platelet Count 62 K/mm3 (150-450); RBC Distribution Width CV 13.7 % (11.6-14.6); RBC Distribution Width SD 51.4 fl (35.1-43.9); Red Blood Count 3.38 M/mm3 (4.6-6.2); White Blood Count 3.9 K/mm3 (4.4-11.0)
[2024-03-17 13:34] LABS: AST(SGOT) 37 U/L (15-37); Alanine Aminotransfer ALT/SGPT 23 U/L (16-61); Albumin, Serum 2.2 g/dL (3.2-5.0); Alkaline Phosphatase 177 U/L (45-117); Anion Gap 8 (5-15); BUN 24 mg/dL (7-18); Bilirubin, Direct 0.85 mg/dL (0.00-0.30); Calcium,Total 8.6 mg/dL (8.5-10.1); Chloride 109 mmol/L (98-107); EST Glomerular Filtration Rate 44 mL/min (>60); Est Glom Filt Rate - Afr Amer 53 mL/min (>60); Estimated Creatinine Clearance 35.72 ml/min; Globulin 3.7 g/dL (2.2-4.2); Glucose 196 mg/dL (74-106); Lipase 65 U/L (13-75); Potassium 3.8 mmol/L (3.5-5.1); Protein, Total 5.9 g/dL (6.4-8.2); Sodium Level 144 mmol/L (136-145)
[2024-03-17] MEDS: Lidocaine 1% /Epi 1:100 (20ml) 20 ML Vial 5 ML INFILT (13:38)
[2024-03-17 14:45] LABS: International Normalized Ratio 1.4; Prothrombin Time (Protime)PT. 16.8 SECONDS (11.7-14.9)
[2024-03-17 14:46] LABS: Partial Thromboplast Time 37.1 Seconds (24.1-36.2)
[2024-03-17 14:56] VITALS: BP 129/69; PULSE 52; RESP 19; O2SAT 97
[2024-03-17 15:29] VITALS: BP 144/61; PULSE 52; RESP 19; O2SAT 95
[2024-03-17 15:34] LABS: Body Fluid Mononuclear WBC # 0.092 10^3/uL; Body Fluid Mononuclear WBC % 73.6 %; Body Fluid Polynuclear WBC # 0.033 10^3/uL; Body Fluid Polynuclear WBC % 26.4 %; Body Fluid Total Cells Counted 0.194 10^3/ul; White Blood Count/Body Fluid 0.125 10^3/uL
[2024-03-17 15:42] VITALS: BP 107/94; PULSE 54; RESP 21; O2SAT 96
[2024-03-17 16:21] VITALS: BP 133/69; PULSE 54; RESP 18; TEMP 36.4; O2SAT 97
[2024-03-17 16:37] LABS: Glucose, Body Fluid 166 mg/dL (40-70); Protein, Body Fluid 1.6 g/dL (Not Establ.)
[2024-03-17 18:14] LABS: Auto B Fluid Analyzer BKGD Ct COUNTS W/IN LIMITS (W/IN LIMITS); Lymphocytes 4 %; Macrophages 41 %; Mesothelial Cells 25 %; Monocytes 10 %; Neutrophil (Segs) 20 %; Source- Body Fluid PARACENTESIS
[2024-03-17 18:15] LABS: Appearance/Body Fluid SL CLDY; Color/Body Fluid LT YEL; Red Cell Count/Body Fluid 560 /mm3
[2024-03-17 18:17] LABS: Body Fluid QC Type(s) BF1Q
[2024-03-19 08:29] LABS: Pathologist Comment/Body Fluid Reviewed
[2024-03-20 13:08] LABS: Amylase Body Fluid 24 U/L (.)
== END 2024-03-17 16:33 | disposition home or self-care (01) ==
PROVIDERS: Emergency Provider Emergency Medicine; PCP Family Medicine; Visit Provider Emergency Medicine
DX: R18.8 Other ascites (principal); K74.60 Unspecified cirrhosis of liver; D64.9 Anemia, unspecified; D68.9 Coagulation defect, unspecified; D69.6 Thrombocytopenia, unspecified; I10 Essential (primary) hypertension; E78.00 Pure hypercholesterolemia, unspecified; Z86.16 Personal history of COVID-19; Z87.891 Personal history of nicotine dependence; Z79.899 Other long term (current) drug therapy
CPT/HCPCS: 49083; 71045; 80048; 80076; 82150; 82945; 83690; 84157; 85025; 85610; 85730; 89050; 93005; 99283; A4216

== ENCOUNTER → 2024-04-02 | Outpatient (CLI) | payer MEDICARE, OTHER, SELFPAY ==
--- NOTE | 2024-04-02 14:29 | US_ITS ---
PROCEDURE: Ultrasound guided paracentesis. DATE OF EXAMINATION: April 02, 2024. INDICATION: Male, 83 years old. Ascites. PHYSICIAN: John Agiular M.D. TECHNIQUE: The risks, benefits, and alternatives to the procedure were explained to the patient. The specific risks of bleeding, infection, and damage to bowel were detailed and accepted. Witnessed informed consent was obtained. The abdomen was ultrasonographically surveyed. An appropriate pocket of fluid was identified at the right lower quadrant. The skin were cleaned and prepped in the usual sterile fashion. Using ultrasound guidance, the peritoneal cavity was accessed with a 5-[place] paracentesis needle/catheter system. The trocar was removed. A total of 3450 ml of momo-colored fluid were removed from the peritoneal cavity. The catheter was removed and a sterile dressing was applied. The procedure was well tolerated. US/Paracentesis with US IMPRESSION: Ultrasound guided paracentesis. Electronically Signed: John Aguilar MD at 15:29 EDT ,
[2024-04-02] MEDS: Lidocaine 2% (20 ml mdv) 20 ML Vial INFILT (14:48)
[2024-04-02 15:16] VITALS: BP 117/52; PULSE 72; RESP 18; TEMP 36.6; O2SAT 97
[2024-04-02 15:17] VITALS: BP 115/54; BP 128/60; PULSE 55; PULSE 61; RESP 18; O2SAT 95; O2SAT 96
== END | disposition home or self-care (01) ==
LOC: US 14:27
PROVIDERS: PCP Family Medicine
DX: R18.8 Other ascites (principal)
CPT/HCPCS: 49083

== ENCOUNTER → 2024-04-10 | Outpatient (CLI) | payer MEDICARE, OTHER, SELFPAY ==
[2024-04-10 14:16] VITALS: BP 127/65; PULSE 56; RESP 18; TEMP 36.4; O2SAT 98
[2024-04-10] MEDS: Lidocaine 2% (20 ml mdv) 20 ML Vial INFILT (14:28)
[2024-04-10 14:30] VITALS: BP 130/60; PULSE 57; RESP 18; O2SAT 94
[2024-04-10 14:45] VITALS: BP 133/60; PULSE 56; RESP 18; TEMP 36.4; O2SAT 96
--- NOTE | 2024-04-10 14:52 | PRO.PCM_ITS ---
Procedure Report Date of Procedure: 04/10/24 Assessment & Plan Assessment/Plan (1) Abdominal ascites: QUALIFIERS: Ascites type: other type Qualified Code(s): R18.8 - Other ascites PLAN: PROCEDURE: Ultrasound guided paracentesis ORDERING PROVIDER: Dr. Davila INDICATION: Male, 83 years old. Ascites. PROVIDER: CRISTINE Llamas TECHNIQUE: The risks, benefits, and alternatives to the procedure were explained to the patient. The specific risks of bleeding, infection, and damage to bowel were detailed and accepted. Witnessed informed consent was obtained. The abdomen was ultrasonographically surveyed. An appropriate pocket of fluid was identified in the right upper quadrant. The skin was prepped with chlorhexidine and sterile field established. 2% lidocaine was used for local anesthetic. Using ultrasound guidance, the peritoneal cavity was accessed with a 5-[place] paracentesis needle/catheter system. The trocar was removed. A total of 4200 ml of clear yellow colored fluid was removed from the peritoneal cavity. The catheter was removed and a sterile dressing was applied. The procedure was well tolerated. IMPRESSION: Successful ultrasound guided paracentesis with right upper quadrant access site. Procedures Radiology Radiology US Procedures: 18179 Paracentesis
== END | disposition home or self-care (01) ==
PROVIDERS: PCP Family Medicine
DX: R18.8 Other ascites (principal)
CPT/HCPCS: 49083

== ENCOUNTER → 2024-04-16 | Outpatient (CLI) | payer MEDICARE, OTHER, SELFPAY ==
[2024-04-16 12:10] VITALS: BP 110/70; PULSE 83; RESP 18; TEMP 36.7; O2SAT 98
[2024-04-16 12:15] VITALS: BP 111/71; PULSE 83; RESP 20; O2SAT 97
[2024-04-16 12:30] VITALS: BP 110/74; PULSE 86; RESP 20; O2SAT 96
--- NOTE | 2024-04-16 12:40 | PRO.PCM_ITS ---
Procedure Report Date of Procedure: 04/16/24 Assessment & Plan Assessment/Plan (1) History of cirrhosis: PLAN: PROCEDURE: Ultrasound guided paracentesis ORDERING PROVIDER: Dr. Muller INDICATION: Male, 83 years old. Ascites. PROVIDER: CRISTINE Llamas TECHNIQUE: The risks, benefits, and alternatives to the procedure were explained to the patient. The specific risks of bleeding, infection, and damage to bowel were detailed and accepted. Witnessed informed consent was obtained. The abdomen was ultrasonographically surveyed. An appropriate pocket of fluid was identified in the left upper quadrant. The skin was prepped with chlor hexidine and sterile field established. 2% lidocaine was used for local anesthetic. Using ultrasound guidance, the peritoneal cavity was accessed with a 5-Indonesian paracentesis needle/catheter system. The trocar was removed. A total of 2750 ml of clear yellow colored fluid was removed from the peritoneal cavity. The catheter was removed and a sterile dressing was applied. The procedure was well tolerated. IMPRESSION: Successful ultrasound guided paracentesis with right upper quadrant access site. Procedures Radiology Radiology US Procedures: [id number] Paracentesis
== END | disposition home or self-care (01) ==
LOC: US 11:30
PROVIDERS: PCP Family Medicine
DX: R18.8 Other ascites (principal)
CPT/HCPCS: 49083

== ENCOUNTER → 2024-04-27 | Outpatient (CLI) | payer MEDICARE, OTHER, SELFPAY ==
--- NOTE | 2024-04-27 10:28 | US_ITS ---
PROCEDURE: Ultrasound guided paracentesis. DATE OF EXAMINATION: April 27, 2024. INDICATION: Male, 84 years old. Ascites. PHYSICIAN: John Aguilar M.D. TECHNIQUE: The risks, benefits, and alternatives to the procedure were explained to the patient. The specific risks of bleeding, infection, and damage to bowel were detailed and accepted. Witnessed informed consent was obtained. The abdomen was ultrasonographically surveyed. An appropriate pocket of fluid was identified at the right/left lower quadrant. The skin were cleaned and prepped in the usual sterile fashion. Using ultrasound guidance, the peritoneal cavity was accessed with a 5-Danish paracentesis needle/catheter system. The trocar was removed. A total of 3600 ml of cloudy momo-colored fluid were removed from the peritoneal cavity. A 100 mL sample was sent for analysis. The catheter was removed and a sterile dressing was applied. The procedure was well tolerated. US/Paracentesis with US IMPRESSION: Ultrasound guided paracentesis. Electronically Signed: John Aguilar MD at 12:15 EDT ,
[2024-04-27] MEDS: Lidocaine 2% (20 ml mdv) 20 ML Vial INFILT (10:56)
[2024-04-27 11:35] VITALS: BP 116/62; PULSE 78; RESP 18; O2SAT 97
[2024-04-27 11:36] VITALS: BP 120/51; PULSE 18; RESP 55; O2SAT 97
[2024-04-27 11:37] VITALS: BP 112/55; PULSE 18; RESP 59; O2SAT 6
== END | disposition home or self-care (01) ==
LOC: US 10:24
PROVIDERS: PCP Family Medicine
DX: R18.8 Other ascites (principal)
CPT/HCPCS: 49083; 88108; 88305; 88313

== ENCOUNTER → 2024-05-07 | Outpatient (CLI) | payer MEDICARE, OTHER, SELFPAY ==
--- NOTE | 2024-05-07 10:25 | US_ITS ---
INDICATION: OTHER ASCITES COMPARISON: Abdominal ultrasound 04/27/2024. FINDINGS: 5 targeted grayscale ultrasound images of the 4 quadrants of the abdomen. Small to moderate amount of ascites throughout the abdomen. Micronodular contour to the liver suggesting hepatic cirrhosis. US/Abdomen Limited IMPRESSION: Small to moderate amount of ascites throughout the abdomen, decreased from 10 days prior. Hepatic cirrhosis. Electronically Signed: Travis Rocha MD at 22:24 EDT ,
== END | disposition home or self-care (01) ==
LOC: US 10:23
PROVIDERS: PCP Family Medicine
DX: R18.8 Other ascites (principal)
CPT/HCPCS: 76705

== ENCOUNTER → 2024-05-19 | Outpatient (CLI) | payer MEDICARE, OTHER, SELFPAY ==
[2024-05-19 12:18] VITALS: BP 110/74; PULSE 87; RESP 16; TEMP 36.6; O2SAT 98
[2024-05-19] MEDS: Lidocaine 2% (20 ml mdv) 20 ML Vial INFILT (12:18)
[2024-05-19 12:19] VITALS: BP 117/67; PULSE 85; RESP 16; O2SAT 97
--- NOTE | 2024-05-19 14:31 | PCM.OPRPT ---
Problems Associated Problem List Diagnoses (1) History of cirrhosis: Operative Report (Standard) Operative Information Surgery/Procedure Performed: Paracentesis Surgeon: Anh Thompson Date of Procedure: 05/19/24 Procedure Start Time: 12:00 Procedure Stop Time: 13:00 Pre-Operative Diagnosis: Abdominal ascites Post-Operative Diagnosis: Abdominal ascites Select all DRAINS/GRAFTS/IMPLANTS that apply: None Type of Anesthesia: Local Estimated Blood Loss: 0 Specimen collected: No Description of surgery: PROCEDURE: Ultrasound guided paracentesis ORDERING PROVIDER: Dr. Muller INDICATION: Male, 84 years old. Abdominal ascites. PROVIDER: Anh Thompson APRN-MIKO TECHNIQUE: The risks, benefits, and alternatives to the procedure were explained to the patient. The specific risks of bleeding, infection, and damage to bowel were detailed and accepted. Witnessed informed consent was obtained. The abdomen was ultrasonographically surveyed. An appropriate pocket of fluid was identified in the right upper quadrant. The skin was prepped with chlorhexidine and sterile field established. 2% lidocaine was used for local anesthetic. Using ultrasound guidance, the peritoneal cavity was accessed with a 5-Italian paracentesis needle/catheter system. The trocar was removed. A total of 2200 ml of clear yellow colored fluid was removed from the peritoneal cavity. The catheter was removed and a sterile dressing was applied. The procedure was well tolerated. IMPRESSION: Successful ultrasound guided paracentesis with right upper quadrant access site. 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
== END | disposition home or self-care (01) ==
LOC: US 11:53
PROVIDERS: PCP Family Medicine
DX: R18.8 Other ascites (principal)
CPT/HCPCS: 49083

== ENCOUNTER → 2024-06-04 | Outpatient (CLI) | payer MEDICARE, OTHER, SELFPAY ==
--- NOTE | 2024-06-04 10:54 | US_ITS ---
PROCEDURE: Ultrasound guided paracentesis. DATE OF EXAMINATION: June 04, 2024.. INDICATION: Male, 84 years old. Ascites. PHYSICIAN: John Aguilar M.D. TECHNIQUE: The risks, benefits, and alternatives to the procedure were explained to the patient. The specific risks of bleeding, infection, and damage to bowel were detailed and accepted. Witnessed informed consent was obtained. The abdomen was ultrasonographically surveyed. An appropriate pocket of fluid was identified at the right lower quadrant. The skin were cleaned and prepped in the usual sterile fashion. Using ultrasound guidance, the peritoneal cavity was accessed with a 5-Namibian paracentesis needle/catheter system. The trocar was removed. A total of 2500 ml of momo-colored fluid were removed from the peritoneal cavity. The catheter was removed and a sterile dressing was applied. The procedure was well tolerated. US/Paracentesis with US IMPRESSION: Ultrasound guided paracentesis. . Electronically Signed: John Aguilar MD at 12:02 EST ,
[2024-06-04 11:00] VITALS: BP 130/73; PULSE 80; RESP 16; O2SAT 96
[2024-06-04 11:15] VITALS: BP 120/70; PULSE 80; RESP 16; O2SAT 96
[2024-06-04] MEDS: Lidocaine 2% (20 ml mdv) 20 ML Vial INFILT (11:15)
[2024-06-04 11:30] VITALS: BP 122/67; PULSE 77; RESP 16; O2SAT 97
== END | disposition home or self-care (01) ==
PROVIDERS: PCP Family Medicine
DX: R18.8 Other ascites (principal)
CPT/HCPCS: 49083

== ENCOUNTER → 2024-06-17 | Outpatient (CLI) | payer MEDICARE, OTHER, SELFPAY ==
--- NOTE | 2024-06-17 10:12 | US_ITS ---
INDICATION: ASCITES EXAMINATION: Ultrasound US Abdomen Limited (quadrant) TECHNIQUE: Villalba scale and color doppler imaging was performed of the abdominal quadrants. COMPARISON: Prior study dated: 06/04/2024 FINDINGS: There is a small volume of ascites seen in the right abdomen. No significant fluid on the left. US/Abdomen Limited IMPRESSION: Small volume ascites. Electronically Signed: David Bocanegra MD at 6:59 EST ,
[2024-06-17 10:30] VITALS: BP 122/71; PULSE 70; RESP 18; O2SAT 97
== END | disposition home or self-care (01) ==
LOC: US 10:10
PROVIDERS: PCP Family Medicine
DX: R18.8 Other ascites (principal)
CPT/HCPCS: 49083; 76705

== ENCOUNTER → 2024-06-26 | Outpatient (CLI) | payer MEDICARE, OTHER, SELFPAY ==
--- NOTE | 2024-06-26 11:34 | US_ITS ---
STUDY: ABDOMINAL ULTRASOUND -ascites survey. REASON FOR VISIT: Male, 84 years old THERAPEUTIC MEASURES TECHNIQUE: Ultrasound evaluation of the 4 quadrants was performed with real-time and static branch-scale imaging. TECHNICAL QUALITY: Adequate. COMPARISON: None. FINDINGS: There is not enough fluid for safe paracentesis. US/Abdomen Limited IMPRESSION: Not enough fluid for safe paracentesis. Electronically Signed: John Aguilar MD at 12:21 EST ,
== END | disposition home or self-care (01) ==
LOC: US 11:32
PROVIDERS: PCP Family Medicine
DX: R18.8 Other ascites (principal)
CPT/HCPCS: 76705

== ENCOUNTER 2024-07-18 05:38 | Emergency (ER) | payer MEDICARE, OTHER, SELFPAY ==
[2024-07-18 05:39] VITALS: PULSE 81; RESP 18; TEMP 36.8; O2SAT 98; BMI 33.1
[2024-07-18 05:44] VITALS: BP 126/76
--- NOTE | 2024-07-18 06:10 | EX.ED.DYSGE1 ---
HPI History of Present Illness Chief Complaint: Other, Pain/Inj Informant: patient Narrative Narrative: Patient is 84-year-old male with past medical history of hypertension hyperlipidemia and abdominal ascites. He states for 3 days now he has had right sided neck pain that is tight and spasming in nature. He states that there was no recent trauma or excessive activity. He states he cannot turn his neck to the right without pain. He denies any fevers or chills. He states has been taking [id number]-bavaitg medications which were helping but now or not doing so and therefore comes in for evaluation [facility] Medical History (Updated 07/27/24 @ 05:[address] Bharath Ravi, DO) Abdominal ascites Wears dentures Bruising Prostate disease Restless legs History of diverticulitis Former smoker History of stress test Anemia due to gastrointestinal blood loss Bleeding external hemorrhoids Pilonidal cyst Macular degeneration Depression BPH (benign prostatic hyperplasia) High cholesterol Hypertension History of COVID-19 Hx of fracture of rib Home Medications ?Medication ?Instructions ?Recorded ?Last Taken ?Type finasteride 5 mg tablet 5 mg PO DAILY BPH 03/09/21 03/09/21 History ropinirole 0.25 mg tablet 0.25 mg PO PRN PRN restless legs 03/09/21 Unknown History rosuvastatin 10 mg tablet 10 mg PO QODAY cholesterol 03/09/21 03/08/21 History tamsulosin 0.4 mg capsule 0.4 mg PO BID BPH 03/09/21 03/09/21 History escitalopram oxalate 5 mg tablet 5 mg PO DAILY 08/01/23 Unknown History nitroglycerin 0.4 mg sublingual 0.4 mg sublingual Q5M 08/01/23 Unknown History tablet midodrine 5 mg tablet 5 mg PO TIDCM 30 days #90 tabs 08/05/23 Unknown Rx carvedilol 3.125 mg tablet 3.125 mg PO BID 07/18/24 Unknown History escitalopram oxalate 10 mg tablet 10 mg PO DAILY 07/18/24 Unknown History methocarbamol 500 mg tablet 500 mg PO 4X/DAY PRN Muscle 07/18/24 Unknown Rx pain/spasm #40 tabs ondansetron 4 mg disintegrating 4 mg PO TID PRN nausea and 07/18/24 Unknown Rx tablet vomiting #21 tabs oxycodone 5 mg tablet 5 mg PO Q6H PRN pain 5 days #20 07/18/24 Unknown Rx tabs polyethylene glycol 3350 17 g PO BID 07/18/24 Unknown History gram/dose oral powder (Gavilax) spironolactone 50 mg tablet 50 mg PO DAILY 07/18/24 Unknown History torsemide 20 mg tablet 20 mg PO DAILY 07/18/24 Unknown History Allergy/AdvReac Type Severity Reaction Status Date / Time amoxicillin (From Augmentin) Allergy Other Verified 07/18/24 05:39 clavulanic acid (From Allergy Other Verified 07/18/24 05:39 Augmentin) lisinopril AdvReac Other Verified 07/18/24 05:39 Family History Mother Cancer Sister Cancer Other Heart disease Surgical History History of cataract surgery History of excision of pilonidal cyst History of herniorrhaphy Social History household members: none Smoking Status: Former smoker alcohol intake: current alcohol intake frequency: other substance use type: does not use ROS ROS ED Constitutional Constitutional ED: Denies chills or fever(s) Eyes Eyes: Denies change in vision ENT ENT ED: Denies sore throat Cardiovascular Cardiovascular: Denies chest pain Respiratory/Chest Respiratory/Chest: Denies cough or dyspnea Gastrointestinal Gastrointestinal: Denies abdominal pain, diarrhea, nausea or vomiting Genitourinary Genitourinary ED: Denies dysuria Musculoskeletal Musculoskeletal: Reports neck pain Integumentary Denies Abrasions or rash Neurologic Neurologic: Denies headache(s) or paresthesias Hematologic/Lymphatic Hematologic/Lymphatic: Denies easy bleeding or easy bruising EXAM Physical Exam Const Vital Signs: 07/18/24 05:39 07/18/24 05:42 07/18/24 05:44 Temperature 98.3 F Temperature Source Oral Pulse Rate 81 Respiratory Rate 18 Respiratory Effort Normal Respiratory Pattern Normal Blood Pressure 126/76 H Blood Pressure Mean 92 Pulse Ox 98 Oxygen Delivery Method Room Air Positive well nourished and well developed General Appearance ED: well developed; Negative for pallor HEENT Reports moist mucous membranes HEENT Narrative: No tongue or lip swelling no oral lesions no airway edema or compromise No secondary findings in the posterior pharynx to suggest infection Eyes PERRL and EOMs intact bilaterally General Eye ED: Negative for scleral icterus Neck supple Neck Narrative: No bony deformity or step-off of the cervical spine no midline tenderness to palpation There is muscle spasm and tension noted overtop the right sternocleidomastoid muscle. Pain worsens with sidebending and rotation. Negative Spurling sign bilaterally No nuchal rigidity or meningeal signs Resp normal respiratory effort and clear to auscultation bilaterally Cardio regular rate and regular rhythm GI non-tender and no masses GI Narrative: Abdomen is slightly distended with mild fluid wave consistent with history of ascites. Otherwise no pain with palpation no voluntary guarding no rigidity no pulsatile mass Auscultation: normoactive bowel sounds Palpation: soft Extremity normal to inspection Neuro oriented x3, CN's II-XII intact bilaterally and no sensory deficits noted Sensorium / Orientation: alert Psych mental status grossly normal Skin no rashes or lesions noted and no wounds General Skin Exam: Negative for jaundice or pallor MDM MDM MDM Narrative Medical decision making narrative: Patient arrived to the ER with stable vitals. He reported right sided neck pain that is worse with motion without trauma. Physical exam does not find any midline tenderness or step-offs going against a cervical compression fracture or spondylolisthesis. He does not have meningeal signs by exam either. Posterior pharynx and does not suggest an infectious process such as peritonsillar or retropharyngeal abscess as a cause. With his exam showing difficulty with sidebending and rotation and the patient having muscle tension and spasm over top of the SCM this is most likely a muscle tension/spasm issue most likely brought about by sleeping or moving in the wrong direction. Therefore I have low concern for neurologic bony or infectious process and there is no need for imaging or laboratory studies and patient can be given symptomatic medication and is otherwise safe for discharge History & Record Review Discussion w/independent historian: Patient Discharge Plan Triage Chief Complaint: Other, Pain/Inj ED Provider: Bharath Ravi Dx/Rx/DC Orders Clinical Impression: Acute cervical myofascial strain, Cervical paraspinous muscle spasm, Abdominal ascites, BPH (benign prostatic hyperplasia), Hypertension, Hyperlipidemia Instructions: ED Neck Sprain or Strain, ED Neck Spasm, No Trauma Prescriptions: New ondansetron 4 mg tablet,disintegrating 4 mg PO TID PRN (Reason: nausea and vomiting) Qty: 21 0RF oxycodone 5 mg tablet 5 mg PO Q6H PRN (Reason: pain) 5 Days Qty: 20 0RF methocarbamol 500 mg tablet 500 mg PO 4X/DAY PRN (Reason: Muscle pain/spasm) Qty: 40 0RF No Action tamsulosin 0.4 mg Capsule 0.4 mg PO BID ropinirole 0.25 mg Tablet 0.25 mg PO PRN PRN (Reason: restless legs) finasteride 5 mg Tablet 5 mg PO DAILY rosuvastatin 10 mg Tablet 10 mg PO QODAY escitalopram oxalate 5 mg tablet 5 mg PO DAILY Patient Comments: TAKE 1 TABLET BY MOUTH EVERY DAY nitroglycerin 0.4 mg tablet, sublingual 0.4 mg sublingual Q5M Rx Instructions: do not exceed 3 doses per episode midodrine 5 mg Tablet 5 mg PO TIDCM 30 Days Qty: 90 0RF torsemide 20 mg tablet 20 mg PO DAILY carvedilol 3.125 mg tablet 3.125 mg PO BID polyethylene glycol 3350 [Gavilax] 17 gram/dose powder PO BID spironolactone 50 mg tablet 50 mg PO DAILY escitalopram oxalate 10 mg tablet 10 mg PO DAILY Primary Care Provider: Adam Lynn Referrals: Adam Lynn MD [Primary Care Provider] - Activity Restrictions/Additional Instructions: Your exam is consistent with a strain and spasm to your sternocleidomastoid muscle. You need to stretch and heat the muscle to reduce pain and speed healing. Take the prescribed medication as directed to help control your symptoms and return to the ER should you have any further concerns Print Language: Icelandic Disposition Disposition: Home, Self Care Discharge Date/Time: 07/18/24 06:45
[2024-07-18] MEDS: Morphine 4 MG/ML Syringe 6 MG IM (06:14)
[2024-07-18] MEDS: Orphenadrine 60 MG/2 ML Ampul IM (06:15)
[2024-07-18] MEDS: Ondansetron ODT 4 MG Tablet PO (06:15)
[2024-07-18 06:39] VITALS: BP 142/79; PULSE 95; RESP 18; TEMP 36.8; O2SAT 94
== END 2024-07-18 06:45 | disposition home or self-care (01) ==
PROVIDERS: Emergency Provider Emergency Medicine; PCP Family Medicine; Visit Provider Emergency Medicine
DX: S16.1XXA Strain of muscle, fascia and tendon at neck level, initial encounter (principal); M62.838 Other muscle spasm; X58.XXXA Exposure to other specified factors, initial encounter; R18.8 Other ascites; I10 Essential (primary) hypertension; N40.0 Benign prostatic hyperplasia without lower urinary tract symptoms; E78.00 Pure hypercholesterolemia, unspecified; Z79.899 Other long term (current) drug therapy; Z86.16 Personal history of COVID-19; Z87.891 Personal history of nicotine dependence
CPT/HCPCS: 96372; 99283

== ENCOUNTER → 2024-07-20 | Outpatient (CLI) | payer MEDICARE, OTHER, SELFPAY ==
[2024-07-20 12:00] VITALS: BP 125/84; PULSE 60; RESP 16; O2SAT 96
[2024-07-20] MEDS: Lidocaine 2% (20 ml mdv) 20 ML Vial INFILT (12:13)
[2024-07-20 12:15] VITALS: BP 119/75; PULSE 60; RESP 16; O2SAT 96
--- NOTE | 2024-07-20 12:21 | OP.PCM_ITS ---
Problems Associated Problem List Diagnoses (1) Abdominal ascites: Multi Select Codes Radiology Radiology US Procedures: 61022 Paracentesis Operative Report (Standard) Operative Information Date of Procedure: 07/20/24 Pre-Operative Diagnosis: Abdominal ascites Post-Operative Diagnosis: Abdominal ascites Surgery/Procedure Performed: Ultrasound-guided paracentesis rn acute dialysis: No Type of Anesthesia: Local Procedure Start Time: 12:09 Procedure Stop Time: 12:35 Select all DRAINS/GRAFTS/IMPLANTS that apply: None Estimated Blood Loss: 0 Specimen collected: No Description of surgery: PROCEDURE: Ultrasound guided paracentesis ORDERING PROVIDER: Dr Davila INDICATION: Male, 84 years old. Abdominal ascites. PROVIDER: Kiersten Howell CNP TECHNIQUE: The risks, benefits, and alternatives to the procedure were explained to the patient. The specific risks of bleeding, infection, and damage to bowel were detailed and accepted. Witnessed informed consent was obtained. The abdomen was ultrasonographically surveyed. An appropriate pocket of fluid was identified in the right upper quadrant. The skin was prepped with chlorhexidine and sterile field established. 2% lidocaine was used for local anesthetic. Using ultrasound guidance, the peritoneal cavity was accessed with a 5-Indonesian paracentesis needle/catheter system. The trocar was removed. A total of 4050 ml of clear yellow colored fluid was removed from the peritoneal cavity. The catheter was removed and a sterile dressing was applied. The procedure was well tolerated. IMPRESSION: Successful ultrasound guided paracentesis with right upper quadrant access site. Surgical Findings: None Complications Complications: No
[2024-07-20 12:30] VITALS: BP 125/57; PULSE 50; RESP 16; O2SAT 98
[2024-07-20 12:33] VITALS: BP 125/55; PULSE 53; RESP 16; O2SAT 98
== END | disposition home or self-care (01) ==
PROVIDERS: PCP Family Medicine; Referring Provider Internal Medicine; Visit Provider Internal Medicine
DX: R18.8 Other ascites (principal)
CPT/HCPCS: 49083

== ENCOUNTER 2024-08-06 11:33 | Emergency (ER) | payer MEDICARE, OTHER, SELFPAY ==
[2024-08-06 11:34] VITALS: BP 127/58; PULSE 85; RESP 18; TEMP 36.7; O2SAT 99
--- NOTE | 2024-08-06 11:51 | EX.ED.DYSGE1 ---
HPI <JASMYN Pruett - Last Filed: 08/06/24 13:36> History of Present Illness Chief Complaint: Palpitations Narrative Narrative: 84-year-old male with past medical history of nonalcoholic cirrhosis, anemia had paracentesis this morning and then was sent over for abnormal heart rate. He really does not know the details. He said he feels weak today but otherwise has no complaints. He typically gets paracentesis every 2 weeks but the last 2 times he went he did not need it. Today they drained off 5.3 L. He denies chest pain, shortness of breath, palpitations, nausea or vomiting or abdominal pain. He states his lower extremity edema is worse than usual. His liver specialist, Dr. Hill at [facility], discontinued his 2 diuretics sometime ago and he is not sure why. [facility] <JASMYN Pruett - Last Filed: 08/06/24 13:36> [facility] Medical History (Updated 08/06/24 @ 13:09 by JASMYN Pruett) Abdominal ascites Wears dentures Bruising Prostate disease Restless legs History of diverticulitis Former smoker History of stress test Anemia due to gastrointestinal blood loss Bleeding external hemorrhoids Pilonidal cyst Macular degeneration Depression BPH (benign prostatic hyperplasia) High cholesterol Hypertension History of COVID-19 Hx of fracture of rib Home Medications ?Medication ?Instructions ?Recorded ?Last Taken ?Type finasteride 5 mg tablet 5 mg PO DAILY BPH 03/09/21 03/09/21 History ropinirole 0.25 mg tablet 0.25 mg PO PRN PRN restless legs 03/09/21 Unknown History rosuvastatin 10 mg tablet 10 mg PO QODAY cholesterol 03/09/21 03/08/21 History tamsulosin 0.4 mg capsule 0.4 mg PO BID BPH 03/09/21 03/09/21 History escitalopram oxalate 5 mg tablet 5 mg PO DAILY 08/01/23 Unknown History nitroglycerin 0.4 mg sublingual 0.4 mg sublingual Q5M 08/01/23 Unknown History tablet midodrine 5 mg tablet 5 mg PO TIDCM 30 days #90 tabs 08/05/23 Unknown Rx carvedilol 3.125 mg tablet 3.125 mg PO BID 07/18/24 Unknown History escitalopram oxalate 10 mg tablet 10 mg PO DAILY 07/18/24 Unknown History methocarbamol 500 mg tablet 500 mg PO 4X/DAY PRN Muscle 07/18/24 Unknown Rx pain/spasm #40 tabs ondansetron 4 mg disintegrating 4 mg PO TID PRN nausea and 07/18/24 Unknown Rx tablet vomiting #21 tabs oxycodone 5 mg tablet 5 mg PO Q6H PRN pain 5 days #20 07/18/24 Unknown Rx tabs polyethylene glycol 3350 17 g PO BID 07/18/24 Unknown History gram/dose oral powder (Gavilax) spironolactone 50 mg tablet 50 mg PO DAILY 07/18/24 Unknown History torsemide 20 mg tablet 20 mg PO DAILY 07/18/24 Unknown History Allergy/AdvReac Type Severity Reaction Status Date / Time amoxicillin (From Augmentin) Allergy Other Verified 08/06/24 11:34 clavulanic acid (From Allergy Other Verified 08/06/24 11:34 Augmentin) lisinopril AdvReac Other Verified 08/06/24 11:34 Family History Mother Cancer Sister Cancer Other Heart disease Surgical History History of cataract surgery History of excision of pilonidal cyst History of herniorrhaphy Social History household members: none Smoking Status: Former smoker alcohol intake: current alcohol intake frequency: other substance use type: does not use ROS <JASMYN Pruett - Last Filed: 08/06/24 13:36> ROS ED ROS Narrative Constitutional: Negative for fever, chills, malaise. CVS: Negative for palpitations, chest pain, syncope. Respiratory: Negative for shortness of breath. GI: Negative for abdominal pain, nausea, vomiting. EXAM <JASMYN Pruett - Last Filed: 08/06/24 13:36> Physical Exam Narrative Exam Narrative: CONST: Patient sitting in no acute distress. EYES: Normal inspection. NECK: Normal inspection. RESP: No respiratory distress, CTAB. CVS: Regular rate and rhythm, no murmur, no gallop. ABD: Soft and nontender, no guarding or rebound, nondistended. Bandage on right lower abdomen from paracentesis procedure. SKIN: Slightly jaundiced noted in his face, no rash, warm, dry, intact. EXTREMITIES: 2+ pitting edema both lower extremities to mid thigh. NEURO: Alert and answering questions appropriately. PSYCH: Normal affect. Const Vital Signs: 08/06/24 11:34 Temperature 98.0 F Temperature Source Oral Pulse Rate 85 Respiratory Rate 18 Blood Pressure 127/58 H Blood Pressure Mean 81 Pulse Ox 99 Oxygen Delivery Method Room Air <Dr. Kendall Albarran MD - Last Filed: 08/06/24 13:23> Physical Exam Const Vital Signs: 08/06/24 11:34 Temperature 98.0 F Temperature Source Oral Pulse Rate 85 Respiratory Rate 18 Blood Pressure 127/58 H Blood Pressure Mean 81 Pulse Ox 99 Oxygen Delivery Method Room Air MDM <JASMYN Pruett - Last Filed: 08/06/24 13:36> MDM MDM Narrative Medical decision making narrative: History gathered from: Patient, spouse, paracentesis nursing staff Differential includes arrhythmia, sick sinus syndrome, medication side effect, ACS 84-year-old male with past medical history of nonalcoholic cirrhosis was sent over after paracentesis when the ultrasound nurse noted his heart rate fluctuated between 40s to 90s. There was concern for a pause. Patient is asymptomatic. He is awake and alert with stable vital signs. He appears to be in sinus rhythm and volume at bedside fluctuates between high 40s to 60s. He is awake alert in no distress. Heart regular. Lungs clear. Abdomen soft and nontender. There is a bandage on his right lower abdomen from recent paracentesis. He has pitting edema to both mid thighs. His labs all appear around baseline. WBC 6.0, macrocytic anemia at 12.1, platelets 70. Creatinine 1.48 baseline with his kidney disease. He has minor elevation of his total bilirubin and liver enzymes around baseline. EKG is sinus bradycardia at 48 bpm. There is no signs of heart block. His troponin is 11. CXR negative for acute findings. His blood pressure is stable most recently around 120/68. His heart has been in normal sinus on the monitor. He has not dropped lower than the 40s. He again is asymptomatic. I feel he can be discharged to follow-up with his primary care doctor. He would prefer to stay within the [facility] system so I discussed his PCP may refer him to cardiology. Signs and symptoms that would warrant return were discussed. The paracentesis staff advised if he is discharged to go over to the infusion center for albumin so this is the plan. I have personally performed a face to face assessment of the patient and have reviewed the JASKARAN Note. I performed a substantive portion of the visit including all aspects of the following. My hughes findings include: History is 84-year-old male who is having abdominal paracentesis done due to he has nonalcoholic cirrhosis and ascites. He took off around 5 L of abdominal fluid. While in recovery from that he had bradycardia without symptoms. No hypotension. No other complaints. Family states he has had this before with other procedures at other facilities. Exam is [well-appearing 84-year-old male. Vital signs stable afebrile. Currently his pulse is in the 80s. Blood pressure 120s over 58. No distress. Family at bedside. H EENT exam unremarked. Neck nontender JVD. Lungs clear to auscultation bilaterally. Heart regular rhythm rate about 80 no murmur. Chest wall ribs nontender. Abdomen soft nondistended normal bowel sounds without peritoneal signs. He does have abdominal ascites but he states is much better after they drained it today. He has an area where they did the paracentesis. There is small amount of fluid from there. Radiology came over and dressed that. Moving all 4 extremities. Pitting edema both lower extremities which is chronic. He is awake and alert. He is answering questions following commands.] Medical Decision Making [cardiac workup for asymptomatic bradycardia. Workup is baseline. Patient has a sinus rhythm now. Good blood pressure. He was never hypotensive. They are comfortable with him being discharged home. They have an albumin order after the paracentesis will be discharged from the ER to go down and do that and then go home.] Other additions or changes: [Repeat exam patient doing well at 1:15 PM. After being discharged home. He will go to infusion to get his albumin and go home.] Lab Data Labs: Laboratory Results - last 24 hr 08/06/24 11:50 WBC 6.0 RBC 3.47 L Hgb 12.1 L Hct 35.5 L MCV 102.3 H MCH 34.9 H MCHC 34.1 RDW Std Deviation 56.0 H RDW Coeff of Randi 15.1 H Plt Count 70 L MPV 9.5 Immature Gran % (Auto) 0.300 Neut % (Auto) 77.7 H Lymph % (Auto) 8.7 L Winn % (Auto) 8.5 Eos % (Auto) 3.8 Baso % (Auto) 1.0 Absolute Neuts (auto) 4.7 Absolute Lymphs (auto) 0.52 L Nucleated RBC % 0 Platelet Estimate MOD DEC PT 16.4 H INR 1.3 Sodium 140 Potassium 4.2 Chloride 112 H Carbon Dioxide 21.0 Anion Gap 7 BUN 30 H Creatinine 1.48 H Est GFR (MDRD) Af Amer 58 L Est GFR (MDRD) Non-Af 48 L BUN/Creatinine Ratio 20.3 H Glucose 123 H Calcium 8.4 L Total Bilirubin 2.50 H Direct Bilirubin 1.01 H AST 41 H ALT 27 Alkaline Phosphatase 183 H Troponin I High Sens 11 Total Protein 6.0 L Albumin 2.2 L Globulin 3.8 Radiography Diagnostic Testing: Clinical Impression(s) from Imaging Studies Chest X-Ray 08/06/24 11:55 IMPRESSION: Findings suggestive of mild linear atelectasis at the right lung base with elevation of the right hemidiaphragm. Electronically Signed: John Aguilar MD at 12:17 EST , ED attending interpretation of 2-view chest x-ray shows normal heart size, no acute infiltrate, edema, or effusion. EKG Initial EKG: Attestation: I personally reviewed and interpreted this EKG as follows: Interpretation: Sinus Bradycardia Comments: Sinus bradycardia at 48 bpm Normal intervals, no acute ischemic change <Dr. Kendall Albarran MD - Last Filed: 08/06/24 13:23> [facility] Narrative Medical decision making narrative: I spoke with the radiology nurse who states his paracentesis procedure went fine but he had variable heart rate between 40s and 90s and appeared to have 1 long pause. He was asymptomatic. He is awake alert in no distress. Initial BP 127/58, HR 85, and all WNL. His exam is benign. His labs all appear around baseline. WBC 6.0, macrocytic anemia at 12.1, platelets 70. Creatinine 1.48 baseline with his kidney disease. He has minor elevation of his total bilirubin and liver enzymes around baseline. EKG is sinus bradycardia at 48 bpm. There is no signs of heart block. His troponin is 11. CXR negative for acute findings. I have personally performed a face to face assessment of the patient and have reviewed the JASKARAN Note. I performed a substantive portion of the visit including all aspects of the following. My hughes findings include: History is 84-year-old male who is having abdominal paracentesis done due to he has nonalcoholic cirrhosis and ascites. He took off around 5 L of abdominal fluid. While in recovery from that he had bradycardia without symptoms. No hypotension. No other complaints. Family states he has had this before with other procedures at other facilities. Exam is [well-appearing 84-year-old male. Vital signs stable afebrile. Currently his pulse is in the 80s. Blood pressure 120s over 58. No distress. Family at bedside. H EENT exam unremarked. Neck nontender JVD. Lungs clear to auscultation bilaterally. Heart regular rhythm rate about 80 no murmur. Chest wall ribs nontender. Abdomen soft nondistended normal bowel sounds without peritoneal signs. He does have abdominal ascites but he states is much better after they drained it today. He has an area where they did the paracentesis. There is small amount of fluid from there. Radiology came over and dressed that. Moving all 4 extremities. Pitting edema both lower extremities which is chronic. He is awake and alert. He is answering questions following commands.] Medical Decision Making [cardiac workup for asymptomatic bradycardia. Workup is baseline. Patient has a sinus rhythm now. Good blood pressure. He was never hypotensive. They are comfortable with him being discharged home. They have an albumin order after the paracentesis will be discharged from the ER to go down and do that and then go home.] Other additions or changes: [Repeat exam patient doing well at 1:15 PM. After being discharged home. He will go to infusion to get his albumin and go home.] History & Record Review Discussion w/independent historian: Patient and Family Lab Data Attestation: I reviewed the patient's lab results. Lab results narrative: CBC with a white count of 6. H&H 12.1 and 35 which is his baseline. Platelets of 70,000. PT/INR of 16 and 1.3. BUN and of 30 creatinine 1.48 he has a history of chronic kidney disease. Liver enzymes are elevated in his baseline. Troponin is 11. Labs: Laboratory Results - last 24 hr 08/06/24 11:50 WBC 6.0 RBC 3.47 L Hgb 12.1 L Hct 35.5 L MCV 102.3 H MCH 34.9 H MCHC 34.1 RDW Std Deviation 56.0 H RDW Coeff of Randi 15.1 H Plt Count 70 L MPV 9.5 Immature Gran % (Auto) 0.300 Neut % (Auto) 77.7 H Lymph % (Auto) 8.7 L Winn % (Auto) 8.5 Eos % (Auto) 3.8 Baso % (Auto) 1.0 Absolute Neuts (auto) 4.7 Absolute Lymphs (auto) 0.52 L Nucleated RBC % 0 Platelet Estimate MOD DEC PT 16.4 H INR 1.3 Sodium 140 Potassium 4.2 Chloride 112 H Carbon Dioxide 21.0 Anion Gap 7 BUN 30 H Creatinine 1.48 H Est GFR (MDRD) Af Amer 58 L Est GFR (MDRD) Non-Af 48 L BUN/Creatinine Ratio 20.3 H Glucose 123 H Calcium 8.4 L Total Bilirubin 2.50 H Direct Bilirubin 1.01 H AST 41 H ALT 27 Alkaline Phosphatase 183 H Troponin I High Sens 11 Total Protein 6.0 L Albumin 2.2 L Globulin 3.8 Radiography Chest X-Ray - ED: 2 View, Read by ED Physician, Read by Radiologist, Normal, Heart, Lungs, Mediastinum, Bony Structures, No Acute Disease and Chronic Changes Diagnostic Testing: Clinical Impression(s) from Imaging Studies Chest X-Ray 08/06/24 11:55 IMPRESSION: Findings suggestive of mild linear atelectasis at the right lung base with elevation of the right hemidiaphragm. Electronically Signed: John Aguilar MD at 12:17 EST , ED attending interpretation of 2-view chest x-ray shows normal heart size, no acute infiltrate, edema, or effusion. Chronic changes. Rhythm Strip Rhythm Strip: Sinus Rhythm Rate: 48 Ectopy: None Discharge Plan Triage Chief Complaint: Palpitations ED Midlevel Provider: Cinthia Nieto ED Provider: Kendall Albarran Dx/Rx/DC Orders Clinical Impression: Sinus bradycardia, Hx of cirrhosis, History of chronic kidney disease Instructions: ED Bradycardia Prescriptions: No Action tamsulosin 0.4 mg Capsule 0.4 mg PO BID ropinirole 0.25 mg Tablet 0.25 mg PO PRN PRN (Reason: restless legs) finasteride 5 mg Tablet 5 mg PO DAILY rosuvastatin 10 mg Tablet 10 mg PO QODAY escitalopram oxalate 5 mg tablet 5 mg PO DAILY Patient Comments: TAKE 1 TABLET BY MOUTH EVERY DAY nitroglycerin 0.4 mg tablet, sublingual 0.4 mg sublingual Q5M Rx Instructions: do not exceed 3 doses per episode midodrine 5 mg Tablet 5 mg PO TIDCM 30 Days Qty: 90 0RF torsemide 20 mg tablet 20 mg PO DAILY carvedilol 3.125 mg tablet 3.125 mg PO BID polyethylene glycol 3350 [Gavilax] 17 gram/dose powder PO BID spironolactone 50 mg tablet 50 mg PO DAILY escitalopram oxalate 10 mg tablet 10 mg PO DAILY ondansetron 4 mg tablet,disintegrating 4 mg PO TID PRN (Reason: nausea and vomiting) Qty: 21 0RF oxycodone 5 mg tablet 5 mg PO Q6H PRN (Reason: pain) 5 Days Qty: 20 0RF methocarbamol 500 mg tablet 500 mg PO 4X/DAY PRN (Reason: Muscle pain/spasm) Qty: 40 0RF Primary Care Provider: Adam Lynn Referrals: Adam Lynn MD [Primary Care Provider] - Activity Restrictions/Additional Instructions: Today all of your screening test was normal. Please see your primary care doctor regarding your heart rate since you want to stay within [facility]. It fluctuates between 40-80 but stays in a normal rhythm. Your blood pressure here has been normal. Print Language: Estonian Disposition Disposition: Home, Self Care Discharge Date/Time: 08/06/24 13:36
--- NOTE | 2024-08-06 11:55 | RAD_ITS ---
STUDY: X-RAY CHEST REASON FOR EXAM: Male, 84 years old. Cough TECHNIQUE: Single AP portable view of the chest. COMPARISON: Comparison is made with prior study dated March 17, 2024. FINDINGS: EKG electrodes are seen. Mild increased linear markings at the right lung base suggestive of right basilar atelectasis. There is no demonstrated pleural abnormality. Normal size heart. Normal mediastinum and len. Normal visualized pulmonary arteries. There is atherosclerotic tortuosity of the aortic arch and descending thoracic aorta. Normal visualized thoracic spine. Healed right rib fractures. There is no demonstrated abnormality of the visualized soft tissue structures of the upper abdomen. RAD/Chest PA and Lateral IMPRESSION: Findings suggestive of mild linear atelectasis at the right lung base with elevation of the right hemidiaphragm. Electronically Signed: John Aguilar MD at 12:17 EST ,
[2024-08-06 12:01] LABS: Absolute Lymphocyte Count 0.52 X10^3/uL (0.83-4.51); Absolute Neutrophil Count 4.7 X10^3/uL (2.0-7.7); Basophil# 0.06 X10^3/uL; Eosinophil# 0.23 X10^3/uL; Eosinophils% 3.8 % (0-5); Hematocrit 35.5 % (40-54); Hemoglobin 12.1 g/dL (13.0-16.5); Lymphocyte # 0.52 X10^3/ul (0.83-4.51); Lymphocyte % 8.7 % (19-41); Mean Corp Hgb Conc 34.1 g/dL (32-36); Mean Corpuscular Hgb 34.9 pg (27.0-32.0); Mean Corpuscular Volume 102.3 fL (80-94); Mean Platelet Vol. 9.5 fl (6.2-12.0); Monocyte# 0.51 X10^3/uL; Monocyte% 8.5 % (0-10); NRBC Flagged by Analyzer 0 % (0-5); Neutrophil # 4.65 X10^3/uL (2.7-7.7); Neutrophil % 77.7 % (47-70); POSITIVE COUNT YES; POSITIVE DIFFERENTIAL YES; Platelet Count 70 K/mm3 (150-450); RBC Distribution Width CV 15.1 % (11.6-14.6); Red Blood Count 3.47 M/mm3 (4.6-6.2)
[2024-08-06 12:10] LABS: International Normalized Ratio 1.3; Prothrombin Time (Protime)PT. 16.4 SECONDS (11.7-14.9)
[2024-08-06 12:17] LABS: AST(SGOT) 41 U/L (15-37); Alanine Aminotransfer ALT/SGPT 27 U/L (16-61); Albumin, Serum 2.2 g/dL (3.2-5.0); Alkaline Phosphatase 183 U/L (45-117); Anion Gap 7 (5-15); BUN 30 mg/dL (7-18); BUN/Creat Ratio 20.3 RATIO (10-20); Bilirubin, Direct 1.01 mg/dL (0.00-0.30); Calcium,Total 8.4 mg/dL (8.5-10.1); Chloride 112 mmol/L (98-107); Creatinine, Serum 1.48 mg/dL (0.70-1.30); EST Glomerular Filtration Rate 48 mL/min (>60); Est Glom Filt Rate - Afr Amer 58 mL/min (>60); Globulin 3.8 g/dL (2.2-4.2); Glucose 123 mg/dL (74-106); Potassium 4.2 mmol/L (3.5-5.1); Sodium Level 140 mmol/L (136-145); Troponin-I HS 11 pg/mL (3.0-78.0)
[2024-08-06 12:20] LABS: Differential Indicated SCAN CRITERIA MET
[2024-08-06 13:01] LABS: Platelet Estimate MOD DEC (ADEQ)
[2024-08-06 13:35] VITALS: BP 112/74
== END 2024-08-06 13:36 | disposition home or self-care (01) ==
PROVIDERS: Physician Assistant; Emergency Provider Emergency Medicine; PCP Family Medicine; Referring Provider Emergency Medicine; Visit Provider Emergency Medicine
DX: R00.1 Bradycardia, unspecified (principal); K74.60 Unspecified cirrhosis of liver; R18.8 Other ascites; N18.9 Chronic kidney disease, unspecified; I12.9 Hypertensive chronic kidney disease with stage 1 through stage 4 chronic kidney disease, or unspecified chronic kidney disease; E78.00 Pure hypercholesterolemia, unspecified; Z79.899 Other long term (current) drug therapy; Z86.16 Personal history of COVID-19; Z87.891 Personal history of nicotine dependence
CPT/HCPCS: 71046; 80048; 80076; 84484; 85025; 85610; 93005; 99283; A4216

== ENCOUNTER → 2024-08-06 | Outpatient (CLI) | payer MEDICARE, OTHER, SELFPAY ==
[2024-08-06 10:40] VITALS: BP 126/70; PULSE 83; RESP 16; TEMP 36.4; O2SAT 97
[2024-08-06] MEDS: Lidocaine 2% (20 ml mdv) 20 ML Vial INFILT (10:40)
[2024-08-06 10:45] VITALS: BP 110/66; PULSE 79; RESP 16; O2SAT 96
[2024-08-06 13:55] VITALS: BP 103/80; PULSE 52; RESP 16; TEMP 35.5; O2SAT 96; BMI 29.0
[2024-08-06] MEDS: Albumin Human 25% (100 mL) 25 GM/100 ML BAG IV (13:55)
[2024-08-06] MEDS: Albumin Human 25% (50 mL) 12.5 GM/50 ML IV.SOLN IV (15:20)
[2024-08-06 16:20] VITALS: BP 119/51; PULSE 95; RESP 16
== END | disposition home or self-care (01) ==
LOC: US 10:16
PROVIDERS: PCP Family Medicine; Referring Provider Internal Medicine; Visit Provider Internal Medicine
DX: R18.8 Other ascites (principal)
CPT/HCPCS: 96365; 96366; 49083

== ENCOUNTER → 2024-08-12 | Outpatient (CLI) | payer MEDICARE, OTHER, SELFPAY ==
--- NOTE | 2024-08-12 11:59 | US_ITS ---
STUDY: ABDOMINAL ULTRASOUND -ascites survey. REASON FOR VISIT: Male, 84 years old ASCITES TECHNIQUE: Ultrasound evaluation of the 4 quadrants was performed with real-time and static branch-scale imaging. TECHNICAL QUALITY: Adequate. COMPARISON: None. FINDINGS: The 4 quadrants were evaluated for possible paracentesis. Not enough fluid for safe paracentesis. US/Abdomen Limited IMPRESSION: Not enough fluid for a safe paracentesis. Electronically Signed: John Aguilar MD at 10:06 EST ,
== END | disposition home or self-care (01) ==
PROVIDERS: PCP Family Medicine; Referring Provider Internal Medicine; Visit Provider Internal Medicine
DX: R18.8 Other ascites (principal); Z53.8 Procedure and treatment not carried out for other reasons
CPT/HCPCS: 76705

== ENCOUNTER → 2024-08-21 | Outpatient (CLI) | payer MEDICARE, OTHER, SELFPAY ==
[2024-08-21] MEDS: Lidocaine 2% (20 ml mdv) 20 ML Vial INFILT (10:48)
--- NOTE | 2024-08-21 10:50 | FLU_PTH ---
PATIENT: STARLA GALE LOC: [facility]#:[id number] AGE/SX: 84/M ROOM: RE08/21/[address]: Dr. Yohana Davila MD : 1940 BED: DIS: 08/21/2024 SPEC #: [id number] RECD: 08/21/24 11:34 STATUS: KENNY RELu #: [id number] SOLA: 08/21/24 10:[address]: Yohana Davila DEPT: CYTOLOGY RECD BY: Donna Barrios ENTERED: 08/21/24 13:56 SP TYPE: Fluid OTHR DR: Dr. Adam Lynn MD Tissues: PARACENTESIS FLUID Procedures: Special Stain Group II Surgery Specimen Level IV Cytospin Fluid HEADER OPERATION: Ultrasound guided paracentesis PRE-OP DIAGNOSIS: Ascites TISSUE SUBMITTED: Paracentesis fluid for cytology DIAGNOSIS CYTOLOGY Paracentesis fluid for cytology (cytospins and cellblock): Negative for malignant cells. See comment. mr 08/24/2024 COMMENT Clinical correlation and appropriate follow up are necessary. Please make reference to previous specimen [id number] paracentesis fluid for cytology with diagnosis of negative for malignant cells. CYTOLOGY STUDY Slides are reviewed. CYTOLOGY GROSS Received is 90 ml of cloudy pale-yellow fluid labeled with the patient's name and and designated per the requisition as Paracentesis fluid. Submitted for cytology preparation including cell block. Mr 08/21/2024 TC:5 CPT: 70451,55201
[2024-08-21 11:29] VITALS: BP 114/70; PULSE 64; RESP 18; TEMP 36.2; O2SAT 98
[2024-08-21 11:30] VITALS: BP 126/72; PULSE 64; RESP 18; O2SAT 98
--- NOTE | 2024-08-21 11:31 | PCM.OPRPT ---
Problems Associated Problem List Diagnoses (1) Abdominal ascites: Multi Select Codes Radiology Radiology US Procedures: 46277 Paracentesis Operative Report (Standard) Operative Information Date of Procedure: 08/21/24 Pre-Operative Diagnosis: Abdominal ascites Post-Operative Diagnosis: Abdominal ascites Surgery/Procedure Performed: Ultrasound-guided paracentesis forensic computer examiner: No Type of Anesthesia: Local Procedure Start Time: 10:43 Procedure Stop Time: 11:15 Select all DRAINS/GRAFTS/IMPLANTS that apply: None Estimated Blood Loss: 0 Specimen collected: Yes Description of specimen(s) removed: 100 cc Description of surgery: PROCEDURE: Ultrasound guided paracentesis ORDERING PROVIDER: Dr Lola Muller INDICATION: Male, 84 years old. Abdominal ascites. PROVIDER: Kiersten Howell CNP TECHNIQUE: The risks, benefits, and alternatives to the procedure were explained to the patient. The specific risks of bleeding, infection, and damage to bowel were detailed and accepted. Witnessed informed consent was obtained. The abdomen was ultrasonographically surveyed. An appropriate pocket of fluid was identified in the left lower quadrant. The skin was prepped with chlorhexidine and sterile field established. 2% lidocaine was used for local anesthetic. Using ultrasound guidance, the peritoneal cavity was accessed with a 5-Moroccan paracentesis needle/catheter system. The trocar was removed. A total of 5200 ml of cloudy yellow colored fluid was removed from the peritoneal cavity. The catheter was removed and a sterile dressing was applied. The procedure was well tolerated. IMPRESSION: Successful ultrasound guided paracentesis with left access site. Surgical Findings: None Complications Complications: No
[2024-08-21 11:32] VITALS: BP 105/54; BP 125/80; PULSE 78; PULSE 79; RESP 18; O2SAT 96; O2SAT 98
[2024-08-21] MEDS: Albumin Human 25% (100 mL) 25 GM/100 ML BAG IV (12:07)
[2024-08-21 13:55] VITALS: BP 93/59; PULSE 109; RESP 16; TEMP 36.3; O2SAT 93
[2024-08-21 14:35] LABS: Body Fluid Mononuclear WBC # 0.045 10^3/uL; Body Fluid Mononuclear WBC % 77.6 %; Body Fluid Polynuclear WBC # 0.013 10^3/uL; Body Fluid Polynuclear WBC % 22.4 %; Body Fluid Total Cells Counted 0.079 10^3/ul; White Blood Count/Body Fluid 0.058 10^3/uL
[2024-08-21 14:51] LABS: Auto B Fluid Analyzer BKGD Ct COUNTS W/IN LIMITS (W/IN LIMITS)
[2024-08-21 14:52] LABS: Appearance/Body Fluid SL CLDY; Color/Body Fluid YELLOW; Source- Body Fluid PARACENTESIS
[2024-08-21 15:24] LABS: Red Cell Count/Body Fluid 80 /mm3
[2024-08-21 15:41] LABS: Lymphocytes 22 %; Mesothelial Cells 25 %; Monocytes 34 %; Neutrophil (Segs) 11 %; Other Cell Type/BF 8 %
[2024-08-21 15:44] LABS: Body Fluid QC Type(s) BF2Q
[2024-08-24 14:02] LABS: Pathologist Comment/Body Fluid Reviewed
== END | disposition home or self-care (01) ==
PROVIDERS: PCP Family Medicine; Referring Provider Internal Medicine; Visit Provider Internal Medicine
DX: R18.8 Other ascites (principal)
CPT/HCPCS: 96365; 96366; 49083; 88108; 88305; 88313; 89050; P9047; A4216

== ENCOUNTER → 2024-09-04 | Outpatient (CLI) | payer MEDICARE, OTHER, SELFPAY ==
--- NOTE | 2024-09-02 15:58 | CASEMGMT ---
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 Per her request, this RN CM contacted pt's daughter Marlen and discussed options for the pt to get his toenails trimmed. Per Marlen she has spoken with a podiatry office, received a quote for a toenail trim, but has not yet scheduled an appointment as she was hoping that could be performed while he was here to save her mom and dad another trip. It was explained that we do not provide this service which Marlen expressed understanding. Marlen then expressed concern that her dad is failing and that she has concerns regarding his ongoing care needs. [facility] described the pt's gait as having become shuffled. States he has a rolling walker that he at times leaves to the side and does not use it to ambulate. He is currently performing his own ADLs but formerly [facility] states he is on the edge of needing more care and is becoming slower physically and mentally. [facility] states she has contacted someone at [facility] and received information regarding skilled and non-skilled home services but they are not currently using these services. Pt does drive short distances at times but states he likely shouldn't be driving. Pt is living with his spouse who provides his transportation to the paracentesis appointments. Marlen states pt is under the care of [facility] providers who did refer them to a peanut sheller. They received education on Na and protein intake but formerly [facility] states pt is not likely to adjust his diet at this age and their goal is for him to just eat as he is not taking in much PO. Pt is currently not scheduled routinely for paracentesis but is noted to need them more frequently (approximately [id number]) and with larger amounts noted to need removed (approx 5000cc). Pt was last admitted to [facility] in July 2023 for KYAW, hyperkalemia and was discharged to [facility]. Pt has had 2 ED recent ED visits (07/18/24 for neck pain and 08/06/24 for irregular cardiac rhythm). MARY BAIRES will follow-up with patient for a [id number] assessment during future paracentesis. Luisa Platt RN ACM
--- NOTE | 2024-09-04 | FLU_PTH ---
PATIENT: STARLA GALE LOC: [facility]#:[id number] AGE/SX: 84/M ROOM: RE09/04/[address]: Dr. Yohana Davila MD : 1940 BED: DIS: 09/04/2024 SPEC #: [id number] RECD: 09/04/24 13:36 STATUS: KENNY PATEL #: [id number] SOLA: 09/04/24 00:[address]: Yohana Davila DEPT: CYTOLOGY RECD BY: Osbaldo Mckeon ENTERED: 09/04/24 13:37 SP TYPE: Fluid OTHR DR: Dr. Adam Lynn MD Tissues: PARACENTESIS FLUID Procedures: Special Stain Group II Surgery Specimen Level IV Cytospin Fluid HEADER OPERATION: Ultrasound guided paracentesis PRE-OP DIAGNOSIS: Ascites TISSUE SUBMITTED: Paracentesis fluid for cytology DIAGNOSIS CYTOLOGY Paracentesis fluid for cytology (cytospins and cellblock): Negative for malignant cells. See comment. [email or web address] 09/07/2024 COMMENT Please make reference to previous specimen [id number] and [id number] paracentesis fluid for cytology with diagnosis of negative for malignant cells. Clinical correlation and appropriate follow up are necessary. CYTOLOGY STUDY Slides are reviewed. CYTOLOGY GROSS Received is 90 ml of yellow-cloudy fluid labeled with the patient's name and and designated per the requisition as Paracentesis fluid. Submitted for cytology preparation including cell block. Mr 09/04/2024 TC:5 CPT: 23455,26173
[2024-09-04] MEDS: Lidocaine 2% (20 ml mdv) 20 ML Vial INFILT (10:42)
[2024-09-04 11:27] VITALS: BP 131/77; PULSE 92; RESP 18; O2SAT 98
[2024-09-04 11:28] VITALS: BP 118/56; PULSE 63; RESP 18; O2SAT 98
[2024-09-04 11:29] VITALS: BP 139/68; PULSE 83; RESP 18; O2SAT 97
[2024-09-04] MEDS: 0.9% Saline Lock 10 ML Syringe IV ×2 (11:31→11:49)
[2024-09-04 11:40] VITALS: BP 117/58; PULSE 81; RESP 16; TEMP 35.9; O2SAT 98; BMI 29.0
--- NOTE | 2024-09-04 11:40 | PCM.OPRPT ---
Problems Associated Problem List Diagnoses (1) Abdominal ascites: Procedures Radiology Radiology US Procedures: 00901 Paracentesis Operative Report (Standard) Operative Information Date of Procedure: 09/04/24 Pre-Operative Diagnosis: Abdominal ascites Post-Operative Diagnosis: Abdominal ascites Surgery/Procedure Performed: Ultrasound guided paracentesis smoking pipe mounter: No Type of Anesthesia: Local Procedure Start Time: 10:30 Procedure Stop Time: 11:30 Select all DRAINS/GRAFTS/IMPLANTS that apply: None Estimated Blood Loss: minimal Specimen collected: Yes Description of specimen(s) removed: 100 mL of cloudy yellow ascites fluid Description of surgery: PROCEDURE: Ultrasound guided paracentesis ORDERING PROVIDER: Dr. Davila INDICATION: Male, 84 years old. Abdominal ascites. PROVIDER: CRISTINE Llamas TECHNIQUE: The risks, benefits, and alternatives to the procedure were explained to the patient. The specific risks of bleeding, infection, and damage to bowel were detailed and accepted. Witnessed informed consent was obtained. The abdomen was ultrasonographically surveyed. An appropriate pocket of fluid was identified in the right upper quadrant. The skin was prepped with chlorhexidine and sterile field established. 2% lidocaine was used for local anesthetic. Using ultrasound guidance, the peritoneal cavity was accessed with a 5-Slovak paracentesis needle/catheter system. The trocar was removed. A total of 7050 ml of cloudy yellow colored fluid was removed from the peritoneal cavity. The catheter was removed and a sterile dressing was applied. The procedure was well tolerated. IMPRESSION: Successful ultrasound guided paracentesis with right upper quadrant access site. Surgical Findings: Successful ultrasound-guided paracentesis. Complications Complications: No
[2024-09-04] MEDS: Albumin Human 25% (100 mL) 25 GM/100 ML BAG IV (11:44)
--- NOTE | 2024-09-04 12:45 | CASEMGMT ---
MARY BAIRES Assessment: Face to Face with pt for initial transition planning/care coordination assessment. MARY BAIRES introduced self and role at [facility], pt voices understanding and consents to assessment. Pt is A&O x4 and answers all questions appropriately at this time. Met pt in infusion suite with and dtr present. Care providers, pharmacy, and demographics verified/updated. Admitting Dx: ascites PCP:Leah Specialists:Lola, liver specialist; upcoming appt at [facility] on Sep 21, unsure of the physician they will see Preferred Pharmacy: [facility] Insurance: [facility], Physician [place] Prescription Benefit: yes LNOK: Elvia Medina, ; Marlen Gee, dtr Living Arrangements: Pt lives with in a single story home with 1 step to enter without a handrail. Pt reports he is I in ADLs but it takes time. Pt gets his own breakfast and dtr brings in other meals. Pt does laundry and dtr gets groceries. Transportation: Pt drives short distances. Pt also transports him. They deny any issues with transportation. DME:rollator, stair lift to basement, walk in shower HHC/SNF: Denies hx of HHC, has been to [facility]. Pt gets a paracentesis every 2 wks. Pt states he is weak, states it is difficult to get out of chair. Pt dtr states pt shuffles when he walks. Pt would like pt to get a shower chair. Pt had a zoom meeting by a hydraulic boom operator. Pt and family state this was information overload and not the most helpful. Handouts were mailed to pt. Pt did not make any changes based on this meeting. Discussed with pt and family options such as palliative care, HHC, private duty services and what each service could provide for pt. Pt states he is very stubborn and he does not feel that any of these services are necessary at this time. He is agreeable to information on meals to assist dtr. Discussed the shower chair and pt was agreeable to this. Discussed getting a rx or using [employer]. Pt would like this sooner than later, brought [employer] up on phone and showed pt options. Pt dtr to order this. MARY BAIRES left room to obtain information on meals and dtr states that pt and do not know she got information on HHC and private duty. She states pt is declining but will not accept help. She also spoke with hospice for information. She states her father needs to come in more often for his procedures but he won't do it. RN VIRY listened as she expressed her concerns. She asks for medic alert information as well. MARY BAIRES came back and provided medic alert handout as well as meal delivery options. Pt to think about all services discussed and MARY BAIRES gave business card. Pt to call if he should change his mind. Pt states no further concerns/needs. Pt Goal: Home, no services at this time Plan: Home, information given. Pt may benefit from another meeting at next appt to f/u on information given. Leandro HERNANDEZ CM
[2024-09-04 13:09] LABS: Body Fluid Mononuclear WBC # 0.038 10^3/uL; Body Fluid Mononuclear WBC % 79.2 %; Body Fluid Polynuclear WBC % 20.8 %; Body Fluid Total Cells Counted 0.071 10^3/ul; White Blood Count/Body Fluid 0.048 10^3/uL
[2024-09-04] MEDS: Albumin Human 25% (50 mL) 12.5 GM/50 ML IV.SOLN IV (13:12)
[2024-09-04 14:11] VITALS: BP 108/50; PULSE 77; RESP 16
[2024-09-04 14:55] LABS: Appearance/Body Fluid CLD; Auto B Fluid Analyzer BKGD Ct COUNTS W/IN LIMITS (W/IN LIMITS); Color/Body Fluid YELLOW; Red Cell Count/Body Fluid 121 /mm3; Source- Body Fluid ASCITES FLUID
[2024-09-04 16:38] LABS: Lymphocytes 9 %; Macrophages 55 %; Neutrophil (Segs) 6 %
[2024-09-04 16:39] LABS: Mesothelial Cells 5 %; Monocytes 25 %
[2024-09-04 16:47] LABS: Body Fluid QC Type(s) BF1Q
[2024-09-07 16:06] LABS: Pathologist Comment/Body Fluid Reviewed
[2024-09-10 14:07] LABS: Body Fluid Mononuclear WBC # 0.043 10^3/uL; Body Fluid Mononuclear WBC % 78.1 %; Body Fluid Polynuclear WBC # 0.012 10^3/uL; Body Fluid Polynuclear WBC % 21.9 %; Body Fluid Total Cells Counted 0.075 10^3/ul; White Blood Count/Body Fluid 0.055 10^3/uL
[2024-09-10 14:30] LABS: Auto B Fluid Analyzer BKGD Ct COUNTS W/IN LIMITS (W/IN LIMITS); Source- Body Fluid ASCITES FLUID
[2024-09-10 14:32] LABS: Appearance/Body Fluid CLOUDY; Color/Body Fluid YELLOW
[2024-09-10 15:24] LABS: Red Cell Count/Body Fluid 133 /mm3
[2024-09-10 15:39] LABS: Lymphocytes 29 %; Macrophages 11 %; Monocytes 17 %; Neutrophil (Segs) 17 %; Other Cell Type/BF 26 %
[2024-09-10 15:41] LABS: Body Fluid QC Type(s) BF1Q,BF2Q
[2024-09-11 13:45] LABS: Pathologist Comment/Body Fluid Reviewed
== END | disposition home or self-care (01) ==
LOC: US 10:27
PROVIDERS: PCP Family Medicine; Referring Provider Internal Medicine; Visit Provider Internal Medicine
DX: R18.8 Other ascites (principal)
CPT/HCPCS: 96365; 96366; 49083; 87070; 87075; 87205; 88108; 88305; 88313; 89050; P9047; A4216

== ENCOUNTER → 2024-09-10 | Outpatient (CLI) | payer MEDICARE, OTHER, SELFPAY ==
--- NOTE | 2024-09-10 11:55 | CASEMGMT ---
MARY BAIRES met with pt. Pt sitting in w/c in no distress. Pt states he is doing ok at home. Asked pt if he had a chance to review any of the information given last week. He states that it is all on the kitchen table. He states his dtr was going to look into the meals but she is still bringing meals every day. He states that he is functionally still the same. He states he usually just sits in the recliner. Pt states he still doesn't feel like he needs any services at home yet, but states he knows they are available. Pt states he has a little pain on the top of his thighs. He states it is a little hard to breathe at times. Pt states things have just been a little different the last couple of years. Pt then became tearful. MARY BAIRES got him tissues. Discussed with pt palliative care and how this may be beneficial to him and what they do. Pt states he would like to look this up on the internet. Encouraged him to do some research and see if it is something he would be interested in. He states he still has this MARY BAIRES's card. Pt was very thankful for the visit. Pt then came in from parking the car and pt was called back for his procedure. Pt states he will likely need to get an infusion as they do this if >4L is removed. Pt denies further needs. MARY BAIRES may be beneficial to follow up in 2wks.
--- NOTE | 2024-09-10 12:15 | FLU_PTH ---
PATIENT: STARLA GALE LOC: [facility]#:[id number] AGE/SX: 84/M ROOM: RE09/10/[address]: Dr. Yohana Davila MD : 1940 BED: DIS: 09/10/2024 SPEC #: [id number] RECD: 09/10/24 13:18 STATUS: KENNY RELu #: [id number] SOLA: 09/10/24 12:[address]: Yohana Davila DEPT: CYTOLOGY RECD BY: Jenni Burnette ENTERED: 09/10/24 14:16 SP TYPE: Fluid OTHR DR: Dr. Adam Lynn MD Tissues: PARACENTESIS FLUID Procedures: Special Stain Group II Surgery Specimen Level IV Cytospin Fluid HEADER OPERATION: Paracentesis fluid PRE-OP DIAGNOSIS: Ascites TISSUE SUBMITTED: Paracentesis fluid for cytology DIAGNOSIS CYTOLOGY Paracentesis fluid for cytology (cytospins and cellblock): Negative for malignant cells. See comment. SJ.mr 09/11/2024 COMMENT Please make reference to previous specimens [id number], [id number], and [id number] paracentesis fluid for cytology with diagnosis of negative for malignant cells. CYTOLOGY STUDY Slides are reviewed. CYTOLOGY GROSS Received is 85 ml of cloudy-opaque fluid labeled with the patient's name and and designated per the requisition as Paracentesis fluid. Submitted for cytology preparation including cell block. Mr 09/10/2024 TC:5 CPT: 65623,01268
[2024-09-10] MEDS: Lidocaine 2% (20 ml mdv) 20 ML Vial INFILT (12:22)
--- NOTE | 2024-09-10 12:53 | OP.PCM_ITS ---
Problems Associated Problem List Diagnoses (1) Abdominal ascites: Multi Select Codes Radiology Radiology US Procedures: 17117 Paracentesis Operative Report (Standard) Operative Information Date of Procedure: 09/10/24 Pre-Operative Diagnosis: Abdominal ascites Post-Operative Diagnosis: Abdominal ascites Surgery/Procedure Performed: Ultrasound-guided paracentesis training engineer: No Type of Anesthesia: Local Procedure Start Time: 12:20 Procedure Stop Time: 12:50 Select all DRAINS/GRAFTS/IMPLANTS that apply: None Estimated Blood Loss: 0 Specimen collected: Yes Description of specimen(s) removed: 100 mL of cloudy yellow fluid Description of surgery: PROCEDURE: Ultrasound guided paracentesis ORDERING PROVIDER: Dr. Davila INDICATION: Male, 84 years old. Ascites. PROVIDER: CRISTINE Canela TECHNIQUE: The risks, benefits, and alternatives to the procedure were explained to the patient. The specific risks of bleeding, infection, and damage to bowel were detailed and accepted. Witnessed informed consent was obtained. The abdomen was ultrasonographically surveyed. An appropriate pocket of fluid was identified in the right lower quadrant. The skin was prepped with chlorhexidine and sterile field established. 2% lidocaine was used for local anesthetic. Using ultrasound guidance, the peritoneal cavity was accessed with a 5-Turkish paracentesis needle/catheter system. The trocar was removed. A total of 5650 ml of cloudy yellow colored fluid was removed from the peritoneal cavity - 100 mL of this fluid was sent to the laboratory for further evaluation. The catheter was removed and a sterile dressing of [place] overlaid by a transparent film was applied to the access site. The procedure was well tolerated. The patient was then transported to the infusion center for albumin administration per physician order. IMPRESSION: Successful ultrasound guided paracentesis with right lower quadrant access site. Surgical Findings: None Complications Complications: No
[2024-09-10] MEDS: 0.9% Saline Lock 10 ML Syringe IV (13:02)
[2024-09-10 13:05] VITALS: BP 98/59; PULSE 54; RESP 16; TEMP 36; O2SAT 98; BMI 28.7
[2024-09-10 13:07] VITALS: BP 104/69; PULSE 84; RESP 18; O2SAT 97
[2024-09-10 13:08] VITALS: BP 113/65; PULSE 84; RESP 18; O2SAT 97
[2024-09-10 13:09] VITALS: BP 126/65; PULSE 81; RESP 18; O2SAT 97
[2024-09-10] MEDS: Albumin Human 25% (100 mL) 25 GM/100 ML BAG IV (13:32)
[2024-09-10] MEDS: Albumin Human 25% (50 mL) 12.5 GM/50 ML IV.SOLN IV (14:54)
[2024-09-10 15:50] VITALS: BP 99/53; PULSE 57; RESP 16; TEMP 36.1; O2SAT 95
== END | disposition home or self-care (01) ==
LOC: US 11:54
PROVIDERS: PCP Family Medicine; Referring Provider Internal Medicine; Visit Provider Internal Medicine
DX: R18.8 Other ascites (principal)
CPT/HCPCS: 96365; 96366; 49083; 88108; 88305; 88313; P9047; A4216

== ENCOUNTER 2024-09-11 16:39 | Emergency (ER) | payer MEDICARE, OTHER, SELFPAY ==
[2024-09-11 16:39] VITALS: BP 112/58; PULSE 54; RESP 16; TEMP 36.6; O2SAT 99
[2024-09-11 19:14] VITALS: BMI 31.2
[2024-09-11 19:16] VITALS: BP 124/53; PULSE 56; RESP 18; O2SAT 98
--- NOTE | 2024-09-11 19:57 | RAD_ITS ---
PROCEDURE: FOREARM 2 VIEWS REASON FOR EXAM: 84-year-old male, fall, blunt trauma, right forearm pain. TECHNIQUE: 2 view(s) of the right forearm COMPARISON: None. FINDINGS: Diffuse osseous demineralization. No obvious fracture. No suspicious bone lesion. Normal alignment at the wrist and elbow. Soft tissues are unremarkable. RAD/Forearm 2 Views IMPRESSION: NO ACUTE FRACTURE OR DISLOCATION. Reading Location: [id number]
--- NOTE | 2024-09-11 20:18 | EX.ED.GENINJ ---
HPI History of Present Illness Chief Complaint: Fall Detail of Chief Complaint: Fall with injury to right cheek and right forearm. Informant: patient and family Onset/Context/Timing Onset: Hours Mechanism/Context: Blunt Injury and Fall Location of pain/injuries: Right forearm and - (Right maxillary region) Quality of Pain: Dull Current Severity: Mild Maximum Severity: Moderate Worsened by: Palpation especially the right forearm Relieved by: Nothing Associated Symptoms Associated Symptoms: Negative for Parasthesias, Weakness, Loss of function, Inability to ambulate, Loss of consciousness or Amnesia Narrative Narrative: Patient is an 84-year-old gentleman. He has history of cirrhosis with ascites requiring paracentesis, kidney disease, external hemorrhoids who presents after mechanical fall. He hit his face not his head. He denies headache. Denies double vision blurred vision loss of vision. Eyes goldman ears decreased hearing. Denies neck pain. He denies paresthesia, anesthesia medics. Denies cardiac respiratory symptoms. He denies abdominal pain. He denies bruising easily. He does have skin tear to his right forearm. Prior similar symptoms: No Recent Illness/Hospitalization: No PFSH PFSH Medical History Abdominal ascites Wears dentures Bruising Prostate disease Restless legs History of diverticulitis Former smoker History of stress test Anemia due to gastrointestinal blood loss Bleeding external hemorrhoids Pilonidal cyst Macular degeneration Depression BPH (benign prostatic hyperplasia) High cholesterol Hypertension History of COVID-19 Hx of fracture of rib Home Medications ?Medication ?Instructions ?Recorded ?Last Taken ?Type finasteride 5 mg tablet 5 mg PO DAILY BPH 03/09/21 03/09/21 History ropinirole 0.25 mg tablet 0.25 mg PO PRN PRN restless legs 03/09/21 Unknown History rosuvastatin 10 mg tablet 10 mg PO QODAY cholesterol 03/09/21 03/08/21 History tamsulosin 0.4 mg capsule 0.4 mg PO BID BPH 03/09/21 03/09/21 History escitalopram oxalate 5 mg tablet 5 mg PO DAILY 08/01/23 Unknown History nitroglycerin 0.4 mg sublingual 0.4 mg sublingual Q5M 08/01/23 Unknown History tablet midodrine 5 mg tablet 5 mg PO TIDCM 30 days #90 tabs 08/05/23 Unknown Rx carvedilol 3.125 mg tablet 3.125 mg PO BID 07/18/24 Unknown History escitalopram oxalate 10 mg tablet 10 mg PO DAILY 07/18/24 Unknown History methocarbamol 500 mg tablet 500 mg PO 4X/DAY PRN Muscle 07/18/24 Unknown Rx pain/spasm #40 tabs ondansetron 4 mg disintegrating 4 mg PO TID PRN nausea and 07/18/24 Unknown Rx tablet vomiting #21 tabs oxycodone 5 mg tablet 5 mg PO Q6H PRN pain 5 days #20 07/18/24 Unknown Rx tabs polyethylene glycol 3350 17 g PO BID 07/18/24 Unknown History gram/dose oral powder (Gavilax) spironolactone 50 mg tablet 50 mg PO DAILY 07/18/24 Unknown History torsemide 20 mg tablet 20 mg PO DAILY 07/18/24 Unknown History Allergy/AdvReac Type Severity Reaction Status Date / Time amoxicillin (From Augmentin) Allergy Other Verified 09/11/24 16:41 clavulanic acid (From Allergy Other Verified 09/11/24 16:41 Augmentin) lisinopril AdvReac Other Verified 09/11/24 16:41 Family History Mother Cancer Sister Cancer Other Heart disease Surgical History History of cataract surgery History of excision of pilonidal cyst History of herniorrhaphy Social History household members: none Smoking Status: Former smoker alcohol intake: current alcohol intake frequency: other substance use type: does not use ROS ROS ED Constitutional Constitutional ED: Denies chills, fever(s), subjective or sweats Eyes Eyes: Reports other; Denies blurry vision or change in vision ENT ENT ED: Denies ear pain, rhinorrhea or sore throat Cardiovascular Cardiovascular: Denies chest pain or palpitations Respiratory/Chest Respiratory/Chest: Denies cough, dyspnea or dyspnea on exertion Gastrointestinal Gastrointestinal: Denies abdominal pain, nausea or vomiting Genitourinary Genitourinary ED: Denies dysuria or hematuria Musculoskeletal Musculoskeletal: Denies arthralgias or myalgias Integumentary Reports Abrasions Neurologic Neurologic: Reports weakness; Denies headache(s) or paresthesias Endocrine Endocrinology: Denies cold intolerance or heat intolerance Hematologic/Lymphatic Hematologic/Lymphatic: Denies easy bleeding or easy bruising EXAM Physical Exam Const Vital Signs: 09/11/24 16:39 09/11/24 19:16 Temperature 97.8 F Temperature Source Oral Pulse Rate 54 L 56 L Respiratory Rate 16 18 Blood Pressure 112/58 L 124/53 H Blood Pressure Mean 76 76 Pulse Ox 99 98 Oxygen Delivery Method Room Air Room Air Positive well nourished and well developed General Appearance ED: well developed and NAD HEENT Reports TM's clear HEENT Narrative: There is a bruise noted over the right maxillary lateral right periorbital region. There is no hyperesthesia of the informed of her nerve or step-off. There is no complaint of diplopia and no other evidence of entrapment. There is no clinical findings of basilar skull fracture. There is no septal deviation hematoma. tenderness Nose: Negative for septum abnormal Tympanic Membrane ED: Yes TM's clear Eyes PERRL and EOMs intact bilaterally General Eye ED: Yes other Other Details: There is no subconjunctival hemorrhage. Neck full ROM Neck Narrative: There is no posterior midline neck pain. General: Negative for tenderness Chest Wall inspection of chest normal and palpation of chest normal Resp normal respiratory effort and clear to auscultation bilaterally Cardio regular rhythm, S1 normal heart sound, S2 normal heart sound and no murmurs Rate: regular rate GI normal to inspection, nondistended, normoactive bowel sounds, non-tender, non-distended and no masses Back/Spine normal to inspection and no thoracic nor lumbar tenderness Extremity Negative for normal to inspection Extremity Narrative: Significant skin tears dorsal surface of the right forearm. There is pain palpation over the forearm. There is no pain the patient of the proximal humerus, carpal bones, metacarpal bones or phalanges. Axillary, median, radial and ulnar function intact. Neuro CN's II-XII intact bilaterally and moves all extremities [place] Coma Scale: document GCS findings Spontaneous Obeys Commands Oriented 15 Sensorium / Orientation: alert Deep Tendon Reflexes: Rt Triceps (C7): 1+, Lt Triceps (C7): 1+, Rt Biceps (C5, C6): 1+, Lt Biceps (C5, C6): 1+, Rt Brachioradialis (C6): 1+, Lt Brachioradialis (C6): 1+, Rt Patellar (L4): 1+, Lt Patellar (L4): 1+, Rt Ankle (S1): 1+ and Lt Ankle (S1): 1+ Deep Tendon Reflexes Back: Rt Patellar (L4): 1+, Lt Patellar (L4): 1+, Rt Ankle (S1): 1+ and Lt Ankle (S1): 1+ Plantar Reflex: Downgoing: bilateral Psych mental status grossly normal and thought process normal Skin Skin Narrative: Significant skin tears dorsal surface of the right forearm MDM MDM MDM Narrative Medical decision making narrative: Will obtain facial films and forearm films to evaluate for fracture. Since there is no head trauma he has no headache GCS of 15 with a nonfocal neurologic exam CT of the head was not obtained. C-spine with not imaged because he has no tenderness and full active range of motion. Of note patient is on no antithrombotic or anticoagulant. Radiography Chest X-Ray - ED: 2 View (2 view x-ray of the forearm was obtained and reviewed interpreted by me at 2048. There is no evidence of fracture or foreign body.) and Read by ED Physician (Three-view x-ray of the facial bones reveals no fracture or foreign body. This independently viewed interpreted by me at 2048.) Discharge Plan Triage Chief Complaint: Fall ED Provider: Terry Dodson Dx/Rx/DC Orders Clinical Impression: Contusion of face, History of cirrhosis, Abdominal ascites, Contusion of right forearm, initial encounter, ISTAP type 2 skin tear of right forearm, Injury due to fall Instructions: ED Facial Contusion, ED Skin Tear (Skin Avulsion) Prescriptions: No Action tamsulosin 0.4 mg Capsule 0.4 mg PO BID ropinirole 0.25 mg Tablet 0.25 mg PO PRN PRN (Reason: restless legs) finasteride 5 mg Tablet 5 mg PO DAILY rosuvastatin 10 mg Tablet 10 mg PO QODAY escitalopram oxalate 5 mg tablet 5 mg PO DAILY Patient Comments: TAKE 1 TABLET BY MOUTH EVERY DAY nitroglycerin 0.4 mg tablet, sublingual 0.4 mg sublingual Q5M Rx Instructions: do not exceed 3 doses per episode midodrine 5 mg Tablet 5 mg PO TIDCM 30 Days Qty: 90 0RF torsemide 20 mg tablet 20 mg PO DAILY carvedilol 3.125 mg tablet 3.125 mg PO BID polyethylene glycol 3350 [Gavilax] 17 gram/dose powder PO BID spironolactone 50 mg tablet 50 mg PO DAILY escitalopram oxalate 10 mg tablet 10 mg PO DAILY ondansetron 4 mg tablet,disintegrating 4 mg PO TID PRN (Reason: nausea and vomiting) Qty: 21 0RF oxycodone 5 mg tablet 5 mg PO Q6H PRN (Reason: pain) 5 Days Qty: 20 0RF methocarbamol 500 mg tablet 500 mg PO 4X/DAY PRN (Reason: Muscle pain/spasm) Qty: 40 0RF Primary Care Provider: Adam Lynn Referrals: Adam Lynn MD [Primary Care Provider] - As Needed Print Language: Icelandic Disposition Disposition: Home, Self Care
--- NOTE | 2024-09-11 20:20 | RAD_ITS ---
PROCEDURE: FACIAL BONES MIN 3 VIEWS REASON FOR EXAM: 84-year-old male, blunt trauma, right maxillary facial swelling and pain. TECHNIQUE: 3 view (s) of the facial bones COMPARISON: CT sinus 09/16/2022. FINDINGS: No evidence of displaced facial bone fracture. Visualized paranasal sinuses are grossly clear. RAD/Facial Bones min 3 Views IMPRESSION: NO FACIAL BONE FRACTURE IDENTIFIED. Reading Location: [id number]
--- NOTE | 2024-09-11 21:08 | ED.RN ---
went to dress the pt's wound and went into the room and asked the pt if he could stepped up to the sink and we can gently wash the r arm. pt's daughter indignantly said,Good luck with that!!! H e far to weak to stand. Pt asked, What did you say? repeated it,but told the pt that it was fine that he is unable to stand,but will use saline to clean the wound and may sting a bit. Dressing done and pt voiced angrily,Will the papers have that information that you just said on the papers. Advised that this nurse did not know. Did write the dressing information on the discharge papers.
== END 2024-09-11 21:14 | disposition home or self-care (01) ==
PROVIDERS: Emergency Provider Emergency Medicine; PCP Family Medicine; Visit Provider Emergency Medicine
DX: S51.811A Laceration without foreign body of right forearm, initial encounter (principal); K74.60 Unspecified cirrhosis of liver; S00.83XA Contusion of other part of head, initial encounter; W19.XXXA Unspecified fall, initial encounter; R18.8 Other ascites; I10 Essential (primary) hypertension; E78.00 Pure hypercholesterolemia, unspecified; Z79.899 Other long term (current) drug therapy; Z86.16 Personal history of COVID-19; Z87.891 Personal history of nicotine dependence
CPT/HCPCS: 70150; 73090; 99285

== ENCOUNTER → 2024-09-17 | Outpatient (CLI) | payer MEDICARE, OTHER, SELFPAY ==
[2024-09-17] MEDS: Lidocaine 2% (20 ml mdv) 20 ML Vial INFILT (10:55)
--- NOTE | 2024-09-17 11:00 | FLU_PTH ---
PATIENT: STARLA GALE LOC: [facility]#:[id number] AGE/SX: 84/M ROOM: RE09/17/[address]: Dr. Yohana Davila MD : 1940 BED: DIS: 09/17/2024 SPEC #: [id number] RECD: 09/17/24 11:28 STATUS: KENNY PATEL #: [id number] SOLA: 09/17/24 11:[address]: Yohana Davila DEPT: CYTOLOGY RECD BY: Donna Barrios ENTERED: 09/17/24 14:04 SP TYPE: Fluid OTHR DR: Dr. Adam Lynn MD Tissues: PARACENTESIS FLUID Procedures: Special Stain Group II Surgery Specimen Level IV Cytospin Fluid HEADER OPERATION: Paracentesis fluid PRE-OP DIAGNOSIS: Ascites TISSUE SUBMITTED: Paracentesis fluid for cytology DIAGNOSIS CYTOLOGY Paracentesis fluid for cytology (cytospins and cellblock): Negative for malignant cells. See comment. mr 09/18/2024 COMMENT Please make reference to previous specimens [id number], [id number], C25-53, [id number] paracentesis fluid for cytology with diagnosis of negative for malignant cells. Clinical correlation and appropriate follow up are necessary. CYTOLOGY STUDY Slides are reviewed. CYTOLOGY GROSS Received is 90 ml of cloudy-yellow fluid labeled with the patient's name and and designated per the requisition as Paracentesis fluid. Submitted for cytology preparation including cell block. Mr 09/17/2024 TC:5 CPT: 11255,08508
[2024-09-17 11:41] VITALS: BP 122/65; PULSE 86; RESP 18; TEMP 36.2; O2SAT 97
[2024-09-17 11:47] VITALS: BP 123/61; BP 126/70; PULSE 81; PULSE 87; RESP 18; O2SAT 96; O2SAT 98
[2024-09-17] MEDS: 0.9% Saline Lock 10 ML Syringe IV (11:57)
[2024-09-17] MEDS: Albumin Human 25% (100 mL) 25 GM/100 ML BAG IV (11:57)
[2024-09-17 11:59] VITALS: RESP 16
[2024-09-17 12:08] LABS: Body Fluid Mononuclear WBC % 83.3 %; Body Fluid Polynuclear WBC % 16.7 %; Body Fluid Total Cells Counted 0.079 10^3/ul
[2024-09-17 12:19] LABS: Appearance/Body Fluid SL CLDY; Auto B Fluid Analyzer BKGD Ct COUNTS W/IN LIMITS (W/IN LIMITS); Color/Body Fluid YELLOW; Source- Body Fluid ASCITES FLUID
[2024-09-17 12:20] LABS: Red Cell Count/Body Fluid 160 /mm3
--- NOTE | 2024-09-17 12:24 | PCM.OPRPT ---
Problems Associated Problem List Diagnoses (1) Abdominal ascites: Multi Select Codes Radiology Radiology US Procedures: 47485 Paracentesis Operative Report (Standard) Operative Information Date of Procedure: 09/17/24 Pre-Operative Diagnosis: Abdominal ascites Post-Operative Diagnosis: Abdominal ascites Surgery/Procedure Performed: Ultrasound-guided airline dispatcher: No Type of Anesthesia: Local Procedure Start Time: 10:50 Procedure Stop Time: 11:18 Select all DRAINS/GRAFTS/IMPLANTS that apply: None Estimated Blood Loss: 0 Specimen collected: Yes Description of specimen(s) removed: 100 cc cloudy yellow Description of surgery: PROCEDURE: Ultrasound guided paracentesis ORDERING PROVIDER: Shanon Davila MD INDICATION: Male, 84 years old. Abdominal ascites. PROVIDER: Kiersten Howell CNP TECHNIQUE: The risks, benefits, and alternatives to the procedure were explained to the patient. The specific risks of bleeding, infection, and damage to bowel were detailed and accepted. Witnessed informed consent was obtained. The abdomen was ultrasonographically surveyed. An appropriate pocket of fluid was identified in the right upper quadrant. The skin was prepped with chlorhexidine and sterile field established. 2% lidocaine was used for local anesthetic. Using ultrasound guidance, the peritoneal cavity was accessed with a 5-Georgian paracentesis needle/catheter system. The trocar was removed. A total of 5350 ml of cloudy yellow colored fluid was removed from the peritoneal cavity. The catheter was removed and a sterile dressing was applied. The procedure was well tolerated. IMPRESSION: Successful ultrasound guided paracentesis with right upper quadrant access site. Surgical Findings: None Complications Complications: No
[2024-09-17 12:37] LABS: Lymphocytes 19 %; Macrophages 66 %; Monocytes 2 %; Neutrophil (Segs) 8 %; Other Cell Type/BF 5 %
[2024-09-17 12:39] LABS: Body Fluid QC Type(s) BF1Q,BF2Q
[2024-09-17] MEDS: Albumin Human 25% (50 mL) 12.5 GM/50 ML IV.SOLN IV (13:24)
[2024-09-17 14:23] VITALS: BP 114/44; PULSE 72; RESP 16
[2024-09-18 13:37] LABS: Pathologist Comment/Body Fluid Reviewed
== END | disposition home or self-care (01) ==
LOC: US 10:27
PROVIDERS: PCP Family Medicine; Referring Provider Internal Medicine; Visit Provider Internal Medicine
DX: R18.8 Other ascites (principal)
CPT/HCPCS: 96365; 96366 ×2; 49083; 87070; 87075; 87205; 88108; 88305; 88313; 89050; P9047; A4216

== ENCOUNTER → 2024-09-24 | Outpatient (CLI) | payer MEDICARE, OTHER, SELFPAY ==
[2024-09-24] VITALS (7 sets, daily range): BP systolic 106–143; BP diastolic 54–83; PULSE 57–68; RESP 16–20; TEMP 36.2–36.5; O2SAT 95–98
--- NOTE | 2024-09-24 09:35 | FLU_PTH ---
PATIENT: STARLA GALE LOC: [facility]#:[id number] AGE/SX: 84/M ROOM: RE09/24/[address]: Dr. Yohana Davila MD : 1940 BED: DIS: 09/24/2024 SPEC #: [id number] RECD: 09/24/24 12:27 STATUS: KENNY JORGE #: [id number] SOLA: 09/24/24 09:[address]: Yohana Davila DEPT: CYTOLOGY RECD BY: Subhash Vaca ENTERED: 09/24/24 12:29 SP TYPE: Fluid OTHR DR: Dr. Adam Lynn MD Tissues: PARACENTESIS FLUID Procedures: Special Stain Group II Surgery Specimen Level IV Cytospin Fluid HEADER OPERATION: Paracentesis fluid PRE-OP DIAGNOSIS: Ascites TISSUE SUBMITTED: Paracentesis fluid for cytology DIAGNOSIS CYTOLOGY Ascitic fluid, cytology and cell block: Negative for malignant cellsMesothelial cells and light acute inflammation RAMESH Barraza MD 09/30/2024 CYTOLOGY STUDY Slides are reviewed. CYTOLOGY GROSS Received is 90 ml of yellow-cloudy fluid labeled with the patient's name and and designated per the requisition as Paracentesis fluid. Submitted for cytology preparation including cell block. 09/24/2024 CPT: 45011,27024, TC: 2
[2024-09-24] MEDS: Lidocaine 2% (20 ml mdv) 20 ML Vial INFILT (09:40)
--- NOTE | 2024-09-24 10:45 | PCM.OPRPT ---
Problems Associated Problem List Diagnoses (1) Abdominal ascites: Multi Select Codes Radiology Radiology US Procedures: 80393 Paracentesis Operative Report (Standard) Operative Information Date of Procedure: 09/24/24 Pre-Operative Diagnosis: Abdominal ascites Post-Operative Diagnosis: Abdominal ascites Surgery/Procedure Performed: Ultrasound-guided paracentesis methods specialist engineer: No Type of Anesthesia: Local Procedure Start Time: 09:37 Procedure Stop Time: 10:07 Select all DRAINS/GRAFTS/IMPLANTS that apply: None Estimated Blood Loss: 0 Specimen collected: Yes Description of specimen(s) removed: 100 mL of cloudy yellow fluid Description of surgery: PROCEDURE: Ultrasound guided paracentesis ORDERING PROVIDER: Dr. Davila INDICATION: Male, 84 years old. Abdominal ascites. PROVIDER: CRISTINE Canela TECHNIQUE: The risks, benefits, and alternatives to the procedure were explained to the patient. The specific risks of bleeding, infection, and damage to bowel were detailed and accepted. Witnessed informed consent was obtained. The abdomen was ultrasonographically surveyed. An appropriate pocket of fluid was identified in the right upper quadrant of the abdomen. The skin was prepped with chlorhexidine and sterile field established. 2% lidocaine was used for local anesthetic. Using ultrasound guidance, the peritoneal cavity was accessed with a 5-Ivorian paracentesis needle/catheter system. The trocar was removed. A total of 5700 ml of cloudy yellow colored fluid was removed from the peritoneal cavity. A sample was sent to the lab for cell count and culture per physician order. The catheter was removed and a sterile dressing with Surgifoam was applied. The procedure was well tolerated. The patient was transported to infusion center for albumin administration. IMPRESSION: Successful ultrasound guided paracentesis with right upper quadrant access site. Surgical Findings: None Complications Complications: No
[2024-09-24] MEDS: Albumin Human 25% (100 mL) 25 GM/100 ML BAG IV (10:48)
[2024-09-24] MEDS: Albumin Human 25% (50 mL) 12.5 GM/50 ML IV.SOLN IV (12:17)
--- NOTE | 2024-09-25 14:29 | CASEMGMT ---
MARY BAIRES: Notification received from web developer programmer of pt having a new wound on his coccyx. Reviewed notes from previous discussions between MARY BAIRES and pt/pt family with discussions including available resources for home care both skilled and non-skilled, delivered meals, and palliative care. Call placed to Dr. Lynn's office for continuity of care and collaboration on pt's care needs. Spoke with Kalina who states pt was last seen at the end of July for a hospital dc follow-up appointment and pt is next scheduled for an appointment on 10/23. Updated Crystal that pt is requiring increased paracenteses, has a new wound to his coccyx and that we have discussed home care and palliative care as options with the pt and his family although pt is resistant. Per Kalina, she does not see any documentation of these options being discussed at previous visits with Dr. Lynn. Kalina states she will send Dr. Lynn a note letting him know of the concerns regarding pt's evidence of decline and possible need for increase services. This MARY BAIRES's call back number was provided if questions or further discussion is needed. Will continue to follow and assist pt and family with care needs as pt is agreeable. Luisa Platt, RN ACM
== END | disposition home or self-care (01) ==
LOC: US 09:15
PROVIDERS: PCP Family Medicine; Referring Provider Internal Medicine; Visit Provider Internal Medicine
DX: R18.8 Other ascites (principal)
CPT/HCPCS: 96365; 96366; 49083; 88108; 88305; 88313; P9047

== ENCOUNTER → 2024-09-30 | Outpatient (CLI) | payer MEDICARE, OTHER, SELFPAY ==
--- NOTE | 2024-09-30 09:25 | US_ITS ---
PROCEDURE: PARACENTESIS WITH US REASON FOR EXAM: ASCITES TECHNIQUE: The procedure as well as the benefits and possible complications including infection and bleeding were explained to the patient. Informed consent was obtained. COMPARISON: None. FINDINGS: The patient was in the supine position. The left lower quadrant was prepped and draped in the usual sterile fashion. Following local anesthetic application, puncture of the abdominal wall was performed with a 5 Romanian catheter. Drainage was obtained. 7300 mL of chylous colored fluid was aspirated. A specimen was sent to the laboratory. The patient tolerated the procedure well. US/Paracentesis with US IMPRESSION: Successful left lower quadrant paracentesis with removal of 7300 cc of chylous fluid. A specimen was sent to the laboratory. The patient tolerated the procedure well. Reading Location: [place] [address]
[2024-09-30 09:45] VITALS: BP 119/71; PULSE 77; RESP 16; TEMP 36.5; O2SAT 94
[2024-09-30] MEDS: Lidocaine 2% (20 ml mdv) 20 ML Vial INFILT (09:50)
--- NOTE | 2024-09-30 09:53 | FLU_PTH ---
PATIENT: STARLA GALE LOC: [facility]#:[id number] AGE/SX: 84/M ROOM: RE09/30/[address]: Dr. Yohana Davila MD : 1940 BED: DIS: 09/30/2024 SPEC #: [id number] RECD: 09/30/24 10:44 STATUS: KENNY PATEL #: [id number] SOLA: 09/30/24 09:[address]: Yohana Davila DEPT: CYTOLOGY RECD BY: Donna Barrios ENTERED: 09/30/24 13:00 SP TYPE: Fluid OTHR DR: Dr. Adam Lynn MD Tissues: PARACENTESIS FLUID Procedures: Special Stain Group II Surgery Specimen Level IV Cytospin Fluid HEADER OPERATION: Paracentesis PRE-OP DIAGNOSIS: Ascites TISSUE SUBMITTED: Paracentesis fluid for cytology DIAGNOSIS CYTOLOGY Paracentesis fluid, cytology and cell block:Mesothelial cells and histiocytes, negative for malignant cellsMarly Barraza MD, 10/03/2024 CYTOLOGY STUDY Slides are reviewed. CYTOLOGY GROSS Received is 80 ml of milky-yellow cloudy fluid labeled with the patient's name and and designated per the requisition as Paracentesis fluid. Submitted for cytology preparation including cell block. Mr 09/30/2024 CPT: 54085,80824 , TC:4
[2024-09-30 10:00] VITALS: BP 131/65; PULSE 79; RESP 16; O2SAT 95
[2024-09-30 10:15] VITALS: BP 123/55; PULSE 68; RESP 16; O2SAT 96
[2024-09-30 10:22] VITALS: BP 127/55; PULSE 80; RESP 16; O2SAT 96
--- NOTE | 2024-09-30 10:30 | NURSING ---
PATIENT WITH WOUND TO RIGHT BUTTOCK. PATIENT STATES WOUND HAS BEEN THERE FOR A COUPLE OF WEEKS AND IS VERY SORE WHEN SITTING. SPOKE WITH WOUND RN; MEPILEX APPLIED WITH RECOMMENDATION TO FOLLOW UP WITH WOUND CENTER. PATIENT INSTRUCTED TO STAY OFF WOUND MUCH POSSIBLE WITH FREQUENT POSITION CHANGES. THIS RN EDUCATED PATIENT AND FAMILY AND RECOMMENDED THEY CALL WOUND CENTER FOR FURTHER EVALUATION. VERBALIZED UNDERSTANDING.
[2024-09-30 10:47] VITALS: BP 127/70; PULSE 64; RESP 16; O2SAT 98; BMI 27.4
[2024-09-30 10:50] LABS: Pathologist Comment/Body Fluid May follow
[2024-09-30 11:11] LABS: Body Fluid Mononuclear WBC # 0.041 10^3/uL; Body Fluid Mononuclear WBC % 69.5 %; Body Fluid Polynuclear WBC # 0.018 10^3/uL; Body Fluid Polynuclear WBC % 30.5 %; Body Fluid Total Cells Counted 0.086 10^3/ul; White Blood Count/Body Fluid 0.059 10^3/uL
[2024-09-30 11:20] LABS: Appearance/Body Fluid TURBID; Auto B Fluid Analyzer BKGD Ct COUNTS W/IN LIMITS (W/IN LIMITS); Color/Body Fluid LT YEL; Source- Body Fluid PARACENTESIS
[2024-09-30 11:23] LABS: Red Cell Count/Body Fluid 580 /mm3
[2024-09-30] MEDS: Albumin Human 25% (100 mL) 25 GM/100 ML BAG IV ×2 (11:37→13:00)
[2024-09-30 11:58] LABS: Lymphocytes 11 %; Macrophages 59 %; Monocytes 3 %; Neutrophil (Segs) 25 %; Other Cell Type/BF 2 %
[2024-09-30 12:00] LABS: Body Fluid QC Type(s) BF1Q,BF2Q
[2024-09-30 15:06] VITALS: BP 112/49; PULSE 78; RESP 16; O2SAT 97
== END | disposition home or self-care (01) ==
LOC: US 09:18
PROVIDERS: PCP Family Medicine; Referring Provider Internal Medicine; Visit Provider Internal Medicine
DX: R18.8 Other ascites (principal)
CPT/HCPCS: 96365; 96366 ×2; 49083; 87070; 87075; 87205; 88108; 88305; 88313; 89050; P9047; A4216

== ENCOUNTER → 2024-10-08 | Outpatient (CLI) | payer MEDICARE, OTHER, SELFPAY ==
[2024-10-08 09:42] VITALS: BP 104/64; PULSE 84; RESP 18; O2SAT 97
[2024-10-08 09:46] VITALS: BP 105/70; PULSE 84; RESP 18; O2SAT 96
--- NOTE | 2024-10-08 09:50 | FLU_PTH ---
PATIENT: STARLA GAEL LOC: [facility]#:[id number] AGE/SX: 84/M ROOM: RE10/08/[address]: Dr. Yohana Davila MD : 1940 BED: DIS: 10/08/2024 SPEC #: [id number] RECD: 10/08/24 10:07 STATUS: KENNY JORGE #: [id number] SOLA: 10/08/24 09:[address]: Yohana Davila DEPT: CYTOLOGY RECD BY: Donna Barrios ENTERED: 10/08/24 11:21 SP TYPE: Fluid OTHR DR: Dr. Adam Lynn MD Tissues: A - PARACENTESIS FLUID Procedures: Special Stain Group II Surgery Specimen Level IV Cytospin Fluid HEADER OPERATION: Paracentesis fluid PRE-OP DIAGNOSIS: Ascites TISSUE SUBMITTED: A- Paracentesis fluid for cytology DIAGNOSIS CYTOLOGY Paracentesis fluid, cytology:Negative for malignant cellsMesothelial cells, lymphocytes, and neutrophils J ilors MD, 10/17/2024 CYTOLOGY STUDY Slides are reviewed. CYTOLOGY GROSS A. Received is 93 ml of yellow-cloudy fluid labeled with the patient's name and and designated per the requisition as Paracentesis fluid. Submitted for cytology. Mr 10/08/2024 CPT: 54109, TC:4
[2024-10-08 10:00] VITALS: BP 116/63; PULSE 86; RESP 18; O2SAT 95
[2024-10-08 10:15] VITALS: BP 104/26; PULSE 64; RESP 18; O2SAT 95
[2024-10-08 10:30] LABS: Pathologist Comment/Body Fluid May follow
--- NOTE | 2024-10-08 10:32 | PCM.OPRPT ---
Problems Associated Problem List Diagnoses (1) Abdominal ascites: (2) History of cirrhosis: Multi Select Codes Radiology Radiology US Procedures: 01471 Paracentesis Operative Report (Standard) Operative Information Date of Procedure: 10/08/24 Pre-Operative Diagnosis: Abdominal ascites Post-Operative Diagnosis: Abdominal ascites Surgery/Procedure Performed: Ultrasound-guided paracentesis second vp hr assessment: No Type of Anesthesia: Local Procedure Start Time: 09:45 Procedure Stop Time: 10:18 Select all DRAINS/GRAFTS/IMPLANTS that apply: None Estimated Blood Loss: 0 Specimen collected: Yes Description of specimen(s) removed: 100 mL of cloudy yellow fluid Description of surgery: PROCEDURE: Ultrasound guided paracentesis ORDERING PROVIDER: Dr. Davila INDICATION: Male, 84 years old. Abdominal ascites. PROVIDER: CRISTINE Canela TECHNIQUE: The risks, benefits, and alternatives to the procedure were explained to the patient. The specific risks of bleeding, infection, and damage to bowel were detailed and accepted. Witnessed informed consent was obtained. The abdomen was ultrasonographically surveyed. An appropriate pocket of fluid was identified in the right upper quadrant. The skin was prepped with chlorhexidine and sterile field established. 2% lidocaine was used for local anesthetic. Using ultrasound guidance, the peritoneal cavity was accessed with a 5-Portuguese paracentesis needle/catheter system. The trocar was removed. A total of 6100 ml of cloudy yellow colored fluid was removed from the peritoneal cavity. A sample was sent to the laboratory for diagnostic purposes. The catheter was removed and a sterile dressing was applied. The procedure was well tolerated. The patient was then transported to the infusion center for albumin administration. IMPRESSION: Successful ultrasound guided paracentesis with right upper quadrant access site. Surgical Findings: None Complications Complications: No
[2024-10-08 10:40] VITALS: BP 130/78; PULSE 84; RESP 16; TEMP 36.2; O2SAT 98
[2024-10-08 10:42] LABS: Body Fluid Mononuclear WBC # 0.055 10^3/uL; Body Fluid Mononuclear WBC % 74.3 %; Body Fluid Polynuclear WBC # 0.019 10^3/uL; Body Fluid Polynuclear WBC % 25.7 %; Body Fluid Total Cells Counted 0.103 10^3/ul; White Blood Count/Body Fluid 0.074 10^3/uL
[2024-10-08] MEDS: Albumin Human 25% (100 mL) 25 GM/100 ML BAG IV (10:47)
[2024-10-08 10:57] LABS: Appearance/Body Fluid CLOUDY; Auto B Fluid Analyzer BKGD Ct COUNTS W/IN LIMITS (W/IN LIMITS); Color/Body Fluid LT YEL; Source- Body Fluid PARACENTESIS
[2024-10-08 11:46] LABS: Red Cell Count/Body Fluid 41 /mm3
[2024-10-08] MEDS: Albumin Human 25% (50 mL) 12.5 GM/50 ML IV.SOLN IV (12:19)
[2024-10-08 12:29] LABS: Lymphocytes 18 %; Macrophages 9 %; Mesothelial Cells 22 %; Monocytes 29 %; Neutrophil (Segs) 9 %; Other Cell Type/BF 13 %
[2024-10-08 12:30] LABS: Body Fluid QC Type(s) BF1Q
--- NOTE | 2024-10-08 12:33 | CASEMGMT ---
Addendum entered and electronically signed by Cinthia Portillo RN 10/09/24 10:37: [facility] with [facility] and verified an appointment has been made for pt for Thursday 10/[address] Marrero. MARY Carter Original Note: RN VIRY Follow-up: This RN CM met with pt and his Alea in the infusion suite. Pt was lying in the recliner and awake but drifted off to sleep intermittently during the conversation. Introduced self and role as MARY CM to pt and his who were both agreeable to discussion. Pt states he is doing ok and denied any immediate needs. Pt's answered most of the questions as pt had difficulty recalling answers. Pt's states pt has been ambulating well around the home using his rollator; they did get a shower chair which he has been using; and they are receiving assistance with meals from their daughter. Pt's states she also cooks. Pt uses a stair chair to go to his office and has been working on taxes, etc. Diet: Discussed diet recommendations including fluid restriction and limited sodium. Pt's states their daughter is contacting their liver specialist to discuss parameters on fluid intake. Pt's states she does limit the amount of salt she cooks with and states they read labels to monitor sodium intake in their food. Pt's states they do allow the pt to eat whatever he wants and states their dr is aware of this. Wound care: pt's states their daughter is calling the wound center to make an appointment to have this evaluated. This RN CM contacted the wound center in follow-up and voicemail left requesting a return call. Palliative care: Pt's states they have an appointment with palliative care next week to discuss their services. Support: Pt's states their daughter, Marlen is providing a lot of support as she does their grocery shopping, helps with meals, coordinates doctor visits, etc. States other family have assisted with housekeeping, dishes, etc. States their other daughter and pt's sister are going to visit this weekend from [facility] [place]. Will continue to follow and assist with care needs as identified. MARY Carter
[2024-10-08 13:04] VITALS: BP 105/52; PULSE 57; RESP 16
--- NOTE | 2024-10-09 10:43 | CASEMGMT ---
Addendum entered by Negrita Burgos 10/13/24 14:39: Received vm from Marlen pt dtr who states that there has been a new order sent to [facility] in [place]. Email to them to confirm this information and received confirmation. TC back to Marlen to make aware that message was received. No appt has been made at this time but they are working on it. MARY BAIRES to follow. Addendum entered by Negrita Burgos 10/09/24 15:19: RN VIRY reached out to [facility], they do not have a referral for pt on palliative or hospice side. TC to pt dtr, she states the referral came from [place] and she does not know which provider this is coming from. MARY BAIRES to follow. Original Note: TC to pt dtr Marlen, she states pt has an appt with palliative care next week via zoom at 11am on the . She states she feels this will be good so that when the transition is needed for hospice, palliative care can do so. A referral has been made to the [facility] but an appt has not yet been scheduled, she is awaiting this call. 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 She states her father has been falling at home. She reports still taking meals to them and getting groceries. Her sibling will be in town for this weekend to assist. She is appreciative of the call and denies any questions or needs for assistance currently.
== END | disposition home or self-care (01) ==
LOC: US 09:21
PROVIDERS: PCP Family Medicine; Referring Provider Internal Medicine; Visit Provider Internal Medicine
DX: R18.8 Other ascites (principal)
CPT/HCPCS: 96365; 96366; 49083; 87070; 87075; 87205; 88108; 88305; 88313; 89050; P9047; A4216

== ENCOUNTER 2024-10-12 07:53 | Outpatient (RCR) | payer MEDICARE, OTHER, SELFPAY ==
[2024-10-12 08:23] VITALS: BP 114/50; PULSE 80; RESP 16; TEMP 36.2; BMI 28.7
--- NOTE | 2024-10-12 08:55 | HP.PCM_ITS ---
History of Present Illness Date of Service: 10/12/24 Chief Complaint: Right forearm wounds History of Wound: Jerry Medina is a delightful 84-year-old male with past medical history of cirrhosis who presents for right forearm wounds after a fall ~1 month ago. Patient reports that when he fell he had significant skin avulsion injury on the dorsum and ulnar aspect of his right forearm. X-rays were negative for acute fracture or malalignment. The emergency department tacked the skin back into position and recommended that he do dressing changes with petroleum gauze, Xeroform, and a wrap, which she has been doing consistently ever since as well as washing. His takes excellent care of the wound and has been the primary wound care personnel. He is here in his appointment with his daughter and . He is not a smoker. [facility] Medical History Abdominal ascites Wears dentures Bruising Prostate disease Restless legs History of diverticulitis Former smoker History of stress test Anemia due to gastrointestinal blood loss Bleeding external hemorrhoids Pilonidal cyst Macular degeneration Depression BPH (benign prostatic hyperplasia) High cholesterol Hypertension History of COVID-19 Hx of fracture of rib Home Medications ?Medication ?Instructions ?Recorded ?Last Taken ?Type finasteride 5 mg tablet 5 mg PO DAILY BPH 03/09/21 0 03/09/21 History ropinirole 0.25 mg tablet 0.25 mg PO PRN PRN restless legs 03/09/21 Unknown History rosuvastatin 10 mg tablet 10 mg PO QODAY cholesterol 0 03/09/21 03/08/21 History tamsulosin 0.4 mg capsule 0.4 mg PO BID BPH 03/09/21 0 03/09/21 History escitalopram oxalate 5 mg tablet 5 mg PO DAILY 4 Unknown History nitroglycerin 0.4 mg sublingual 0.4 mg sublingual Q5M 08/01/23 Unknown History tablet midodrine 5 mg tablet 5 mg PO TIDCM 30 days #90 ta bs 08/05/23 Unknown Rx carvedilol 3.125 mg tablet 3.125 mg PO BID 07/18/24 Un known History Held on 09/30/24. Instructions: on hold per Dr Davila escitalopram oxalate 10 mg tablet 10 mg PO DAILY 07/18 Unknown History methocarbamol 500 mg tablet 500 mg PO 4X/DAY PRN Muscl e 07/18/24 Unknown Rx pain/spasm #40 tabs ondansetron 4 mg disintegrating 4 mg PO TID PRN nausea and 07/18/24 Unknown Rx tablet vomiting #21 tabs oxycodone 5 mg tablet 5 mg PO Q6H PRN pain 5 days #20 07/18/24 Unknown Rx Held on 09/30/24. tabs Instructions: pt no longer taking polyethylene glycol 3350 17 g PO BID 07/18/24 Unknown History gram/dose oral powder (Gavilax) Held on 09/30/24. Instructions: on hold per Dr Davila spironolactone 50 mg tablet 50 mg PO DAILY 07/18/24 Un known History Held on 09/30/24. Instructions: no longer taking per Dr Davila torsemide 20 mg tablet 20 mg PO DAILY 07/18/24 Unkn own History Held on 09/30/24. Instructions: on hold per Dr Davila taurine 1,000 mg capsule 1,000 mg PO Q6H 09/30/24 Unk nown History rifaximin 550 mg tablet (Xifaxan) 550 mg PO BID Unknown History Allergy/AdvReac Type Severity Reaction Status Date / Time amoxicillin (From Augmentin) Allergy Other Verified 10/12/24 08:22 clavulanic acid (From Allergy Other Verified 10/12/24 08:22 Augmentin) lisinopril AdvReac Other Verified 10/12/24 08:22 Family History Mother Cancer Sister Cancer Other Heart disease Surgical History History of cataract surgery History of excision of pilonidal cyst History of herniorrhaphy Social History household members: none Smoking Status: Never smoker alcohol intake: current alcohol intake frequency: other substance use type: does not use Vital Signs Vital Signs Vital Signs: 10/12/24 08:23 Temperature 97.1 F L Temperature Source Temporal Pulse Rate 80 Respiratory Rate 16 Blood Pressure 114/50 L Blood Pressure Mean 71 Blood Pressure Source Monitor Blood Pressure Position Semi-Fowlers Blood Pressure Location Left Arm Oxygen Delivery Method Room Air Weight Weight: 178 lb Body Mass Index (BMI) 28.7 Physical Exam Narrative R Upper Extremity Inspection:Two skin tears, distal forearm dorsum and proximal ulnar forearm, measuring 2.5 x 2.5 cm and 0.1 cm deep and 5 x 0.8 cm and are 0.1 cm deep, respectively. They're superficial and now partial-thickness (no fat exposed). No surrounding induration/fluid collections. Minimal necrotic debris. Palpation: no TTP over the wrist or the scaphoid. Motor: Able to bend and extend all MP, PIP, and DIP joints. Sensory: Intact to light touch on the radial and ulnar borders. Vascular: Finger tips are warm and well perfused with <2 second capillary refill. Wound on SACRAL REGION Small skin excoriation, ~2 mm x 1 mm No signs of infection. Debridement Note Debridement Note Wound debrided: Left proximal ulnar forearm partial-thickness wound Laterality: Right Wound Grade/Stage: 2 Type of Debridement: Selective debridement Anesthesia Used: 4% Lidocaine Solution Depth: Down to and including healthy tissue (Necrotic skin ) Percentage of wound debrided: 50 Instrument Used: 3mm curette and - (and scissors ) Severity: Limited To Skin Breakdown Amount of bleeding with debridement: None Bleeding Controlled with: Pressure Patient tolerated procedure: Patient tolerated procedure well Post-Debridement Measurements and Additional Note: Post-Debridement Measurements/Treatment - Nurse 1 - General Ulcer Assessment Start: 10/12/24 08:22 Freq: Status: Active Protocol: [email or web address] Activity Type Activity Date Activity User E-sign Co-sign Detail Recorded Client Recorded Date Recorded By Document 10/12/24 08:23 KW [id number] 10/12/24 08:39 KW 10/12/24 08:23 - Today's Visit Information Type of service Initial Visit Arrival Mode Ambulatory, Walker Accompanied by and daughter Patient Identification Verified (Name & Yes ) Height and Weight Height 5 ft 6 in Weight 178 lb Weight in Pounds 178.0 lbs Weight Measurement Method Estimated by Patient Body Mass Index (BMI) 28.7 BMI Classification Overweight Vital Signs Temperature (97.8 F-99.1 F) 97.1 F L Temperature Source Temporal Pulse Rate (60-100) 80 Pulse Location Monitor Respiratory Rate (12-18) 16 Respiratory rate source Observation Oxygen Delivery Method Room Air Blood Pressure (90/60-120/80) 114/50 L Blood Pressure Mean 71 Source Monitor Position Semi-Fowlers Blood Pressure Location Left Arm History Since Last Visit- (Skip if this is Patient's initial visit) Left Footwear Regular Shoe Right Footwear Regular Shoe Pain Scale: 0-10 Numeric Is Patient Pain Free? Yes Communication Assessment Preferred language Arabic Plant Anatomy Teacher Required No Able to Read Yes Able to Write Yes Communication Tools None Caregiver Communication Skills No Impairment Impairment Right Hearing Abillity Normal Left Hearing Abillity Normal Visual Assistive Devices Glasses Teaching Assessment Preferences Verbal,Written, Demonstration Barriers to Learning None Readiness To Learn Excellent Willingness to Engage in Self Management High Activies Readiness to Engage in Self Management High Activities Anxiety Level Calm Cooperation Cooperative Perception Coherent Interest in Health Problem Asks Questions Smoking Status Never smoker Is Patient Diabetic No Functional Assessment Recent Decline in Ability to Perform Denies Any Declines Culture/Jain/Nitriles Lab Technician Cultural/Jain Needs that may affect No Treatment Plan Would you allow our hospital electric appliance installer to No meet you for the purpose of spiritual/ emotional support? Nitriles Lab Technician to contact place of scientologist No WC - Nurse 1 - General Ulcer Measurement Start: 10/12/24 08:22 Freq: Status: Active Protocol: Activity Type Activity Date Activity User E-sign Co-sign Detail Recorded Client Recorded Date Recorded By Document 10/12/24 08:23 KW [id number] 10/12/24 08:39 KW 10/12/24 08:23 Wound Center Nurse 1 #2 LT BUTTOCK CLUSTER -Current Size (cm) - Length 0.1 -Current Size (cm) - Width 0.1 -Current Size (cm) - Depth 0.1 -Total Square Cm 0.01 -Exudate Amt Small -Exudate Type Serosanguineous -Wound Margin Distinct, Outline Attached -Texture (Lea-wound Skin Appearance) Assessed -Moisture (Lea-wound Skin Appearance) Assessed -Color (Lea-wound Skin Appearance) Assessed, Erythema -Temperature (Lea-wound Skin No Abnormality Appearance) (Pt Warm) -Tenderness on Palpation (Lea-wound No Skin Appearance) -Ulcer Cleansing Rinsed/ Irrigated with Saline -Foul Odor after Cleansing No -Anesthetic Used 5% Lidocaine Gel -Wound Comment(s) SHEARING #1 RT BUTTOCK -Current Size (cm) - Length 0.5 -Current Size (cm) - Width 0.5 -Current Size (cm) - Depth 0.1 -Total Square Cm 0.25 -Date of Last Picture (Recall this 10/12/24 field) -Exudate Amt Small -Exudate Type Serosanguineous -Wound Margin Distinct, Outline Attached -Granulation Amt Large (67-100%) -Granulation Quality Red -Texture (Lea-wound Skin Appearance) Assessed -Moisture (Lea-wound Skin Appearance) Assessed -Color (Lea-wound Skin Appearance) Assessed, Erythema -Temperature (Lea-wound Skin No Abnormality Appearance) (Pt Warm) -Tenderness on Palpation (Lea-wound No Skin Appearance) -Ulcer Cleansing Rinsed/ Irrigated with Saline -Foul Odor after Cleansing No -Anesthetic Used 5% Lidocaine Gel #4 RFA -Current Size (cm) - Length 8 -Current Size (cm) - Width 2 -Current Size (cm) - Depth 0.1 -Total Square Cm 16 -Date of Last Picture (Recall this 10/12/24 field) -Exudate Amt Medium -Exudate Type Serosanguineous -Wound Margin Distinct, Outline Attached -Granulation Amt Large (67-100%) -Granulation Quality Red -Texture (Lea-wound Skin Appearance) Assessed -Moisture (Lea-wound Skin Appearance) Assessed -Color (Lea-wound Skin Appearance) Assessed -Temperature (Lea-wound Skin No Abnormality Appearance) (Pt Warm) -Tenderness on Palpation (Lea-wound No Skin Appearance) -Ulcer Cleansing Rinsed/ Irrigated with Saline -Foul Odor after Cleansing No -Anesthetic Used 5% Lidocaine Gel #3 RT WRIST CLUSTER -Current Size (cm) - Length 4.5 -Current Size (cm) - Width 0.5 -Current Size (cm) - Depth 0.1 -Total Square Cm 2.25 -Date of Last Picture (Recall this 10/12/24 field) -Exudate Amt Small -Exudate Type Serosanguineous -Wound Margin Distinct, Outline Attached -Granulation Amt Large (67-100%) -Granulation Quality Red -Texture (Lea-wound Skin Appearance) Assessed -Moisture (Lea-wound Skin Appearance) Assessed -Color (Lea-wound Skin Appearance) Assessed, Ecchymosis -Temperature (Lea-wound Skin No Abnormality Appearance) (Pt Warm) -Tenderness on Palpation (Lea-wound No Skin Appearance) -Ulcer Cleansing Rinsed/ Irrigated with Saline -Foul Odor after Cleansing No -Anesthetic Used 5% Lidocaine Gel WC - Nurse 2 - General Ulcer CM Notes Start: 10/12/24 08:22 Freq: Status: Active Protocol: Activity Type Activity Date Activity User E-sign Co-sign Detail Recorded Client Recorded Date Recorded By Document 10/12/24 08:44 JUSTA [id number] 10/12/24 08:46 JUSTA Edit Result 10/12/24 08:44 JF (1) [id number] 10/12/24 08:53 JF (1) #4 RFA - Time => 08:49 - Correct Patient No => Yes - Correct Side, Site, Position No => Yes - Correct Procedure No => Yes - Procedure Performed No => Yes - Type of Procedure => Debridement - Clinical Debridement => Epidermis / Dermis - Tissue Removed => Epidermis,Dermis - Post Debridement (cm) - Length => 5.0 - Post Debridement (cm) - Width => 0.8 - Post Debridement (cm) - Depth => 0.1 - Total Square (Post) (cm) => 4.00 - Area of Debridement (cm) - Length => 5.0 - Area of Debridement (cm) - Width => 0.8 - Total Square (Area) (cm) => 4.00 - Tunneling => No - Undermining/Tunneling => No - Circular Undermining => No - Ulcer Cleansing => Rinsed/Irrigated => with Saline - Foul Odor after Cleansing => No - Bioengineered Tissue => No - Bleeding Controlled with => Pressure - Treatment Response => Procedure => Tolerated Well - Offloading => No - Debridement - Open, 1st 20sq cm => Yes 10/12/24 08:44 Wound Center Nurse 2 #2 LT BUTTOCK CLUSTER -Correct Patient No -Correct Side, Site, Position No -Correct Procedure No -Procedure Performed No -Post Debridement (cm) - Length 0 -Post Debridement (cm) - Width 0 -Post Debridement (cm) - Depth 0 -Total Square (Post) (cm) 0 -Area of Debridement (cm) - Length 0 -Area of Debridement (cm) - Width 0 -Total Square (Area) (cm) 0 -Wound/Ulcer Outcome Healed- Epithelialized #1 RT BUTTOCK -Correct Patient No -Correct Side, Site, Position No -Correct Procedure No -Procedure Performed No -Post Debridement (cm) - Length 0 -Post Debridement (cm) - Width 0 -Post Debridement (cm) - Depth 0 -Total Square (Post) (cm) 0 -Area of Debridement (cm) - Length 0 -Area of Debridement (cm) - Width 0 -Total Square (Area) (cm) 0 -Wound/Ulcer Outcome Healed- Epithelialized #4 RFA -Time 08:49 -Correct Patient Yes -Correct Side, Site, Position Yes -Correct Procedure Yes -Procedure Performed Yes -Type of Procedure Debridement -Clinical Debridement Epidermis / Dermis -Tissue Removed Epidermis, Dermis -Post Debridement (cm) - Length 5.0 -Post Debridement (cm) - Width 0.8 -Post Debridement (cm) - Depth 0.1 -Total Square (Post) (cm) 4.00 -Area of Debridement (cm) - Length 5.0 -Area of Debridement (cm) - Width 0.8 -Total Square (Area) (cm) 4.00 -Tunneling No -Undermining/Tunneling No -Circular Undermining No -Wound/Ulcer Outcome Not Healed -Ulcer Cleansing Rinsed/ Irrigated with Saline -Foul Odor after Cleansing No -Bioengineered Tissue No -Bleeding Controlled with Pressure -Treatment Response Procedure Tolerated Well -Offloading No -Debridement - Open, 1st 20sq cm Yes #3 RT WRIST CLUSTER -Correct Patient No -Correct Side, Site, Position No -Correct Procedure No -Procedure Performed No -Wound/Ulcer Outcome Not Healed Pain Scale: 0-10 Numeric Is Patient Pain Free? Yes Charges/Coding Visit Charges Office Visits / Consults: [id number] OV L3 New 30min Wound Center CF Procedures [id number]: [id number] RMVL DEVITAL TIS 20 CM/< (with 25 modifier ) Multi Select Codes Wound Center CF Procedures [id number]: [id number] RMVL DEVITAL TIS 20 CM/< (with 25 modifier ) Assessment/Plan Assessment/Plan (1) Skin ulcer of forearm: CODE(S): L98.499 - Non-pressure chronic ulcer of skin of other sites with unspecified severity PLAN: Discussed wound extensively with family. Discussed Xeroform twice daily to the wounds with soapy water washes. Follow-up in 2 weeks. Recommended skin ointment and barrier creams and pressure offloading from time to time for sacral excoriation. Patient and family happy with the plan
--- NOTE | 2024-10-12 14:35 | WC ---
PHOTO 10/12/24 R/L BUTTOCK (I)
--- NOTE | 2024-10-12 14:38 | WC ---
PHOTO 10/12/24 RIGHT FOREARM
--- NOTE | 2024-10-12 14:42 | WC ---
PHOTO 10/12/24 RIGHT WRIST
== END 2024-10-19 23:59 | disposition home or self-care (01) ==
LOC: WC 07:53
PROVIDERS: PCP Family Medicine; Referring Provider Family Medicine; Visit Provider Surgery Plastic and Reconstructive Surgery
DX: S51.811A Laceration without foreign body of right forearm, initial encounter (principal); X58.XXXA Exposure to other specified factors, initial encounter; Z87.891 Personal history of nicotine dependence; N40.0 Benign prostatic hyperplasia without lower urinary tract symptoms; I10 Essential (primary) hypertension; E78.00 Pure hypercholesterolemia, unspecified; Z79.899 Other long term (current) drug therapy
CPT/HCPCS: 97597; 99214; G0463

== ENCOUNTER 2024-10-14 15:04 | Inpatient (IN) | payer MEDICARE, OTHER, SELFPAY ==
[2024-10-14] VITALS (7 sets, daily range): BP systolic 105–136; BP diastolic 61–83; PULSE 65–100; RESP 15–20; TEMP 36.6; O2SAT 94–95; BMI 31.9; BMI 29.8
--- NOTE | 2024-10-14 15:05 | ED.VIS.FALL ---
HPI HPI - Fall History of Present Illness Chief Complaint: Fall PFSH PFSH Medical History Abdominal ascites Wears dentures Bruising Prostate disease Restless legs History of diverticulitis Former smoker History of stress test Anemia due to gastrointestinal blood loss Bleeding external hemorrhoids Pilonidal cyst Macular degeneration Depression BPH (benign prostatic hyperplasia) High cholesterol Hypertension History of COVID-19 Hx of fracture of rib Home Medications ?Medication ?Instructions ?Recorded ?Last Taken ?Type finasteride 5 mg tablet 5 mg PO DAILY BPH 03/09/21 10/14/24 History ropinirole 0.25 mg tablet 0.25 mg PO PRN PRN restless legs 03/09/21 Unknown History tamsulosin 0.4 mg capsule 0.4 mg PO BID BPH 03/09/21 10/14/24 History nitroglycerin 0.4 mg sublingual 0.4 mg sublingual Q5M 08/01/23 Unknown History tablet midodrine 5 mg tablet 5 mg PO TIDCM 30 days #90 tabs 08/05/23 10/14/24 Rx taurine 1,000 mg capsule 1,000 mg PO Q6H 09/30/24 10/14/24 History rifaximin 550 mg tablet (Xifaxan) 550 mg PO BID 10/08/24 10/14/24 History escitalopram oxalate 20 mg tablet 20 mg PO DAILY 10/14/24 10/14/24 History zinc sulfate 50 mg zinc (220 mg) 100 mg PO DAILY 10/14/24 10/14/24 History capsule (Orazinc) Allergy/AdvReac Type Severity Reaction Status Date / Time amoxicillin (From Augmentin) Allergy Other Verified 10/14/24 15:10 clavulanic acid (From Allergy Other Verified 10/14/24 15:10 Augmentin) lisinopril AdvReac Other Verified 10/14/24 15:10 Family History Mother Cancer Sister Cancer Other Heart disease Surgical History History of cataract surgery History of excision of pilonidal cyst History of herniorrhaphy Social History household members: none Smoking Status: Former smoker alcohol intake: current alcohol intake frequency: other substance use type: does not use EXAM Physical Exam Const Vital Signs: 10/14/24 15:05 10/14/24 15:12 10/14/24 17:05 Temperature 97.8 F Temperature Source Oral Pulse Rate 67 65 Respiratory Rate 18 15 Respiratory Effort Normal Non-Labored Respiratory Depth Normal Respiratory Pattern Normal Blood Pressure 124/61 H 120/66 Blood Pressure Mean 82 84 Pulse Ox 95 95 Oxygen Delivery Method Room Air Room Air 10/14/24 19:00 10/14/24 20:57 Temperature Temperature Source Pulse Rate 75 85 Respiratory Rate 20 H Respiratory Effort Respiratory Depth Respiratory Pattern Blood Pressure 105/74 123/83 H Blood Pressure Mean 84 96 Pulse Ox 94 Oxygen Delivery Method Room Air MDM MDM MDM Narrative Medical decision making narrative: HISTORY OF PRESENT ILLNESS: 84-year-old here after fall. Patient states he suffered a mechanical fall in the kitchen. Injuring his left hip, hitting his head and right forearm. 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 He denies any prodromal symptoms such as headache, chest pain, shortness of breath. Does not recent diarrhea. Denies any fever. Does endorse lower abdominal pain. Denies any urinary complaints. Denies any fever. REVIEW OF SYSTEMS: Pertinent positives: Fall, head trauma, abdominal pain, Pertinent negatives: Chest pain, shortness of breath, headache PHYSICAL EXAM: Nursing triage notes reviewed, Vital signs reviewed Primary Survey Airway: Intact Breathing: Bilateral breath sounds Circulation: Palpable bilateral femorals, Palpable bilateral radial, Palpable bilateral DP and Palpable bilateral PT Disability / Spine precautions GCS Score: Eye Openin Verbal Response: 5 Motor Response: 6 Secondary Survey Constitutional: Please see MDM Head: Cephalhematoma noted to the frontal bone, trauma noted to the nasal bridge, bleeding controlled, no obvious lacerations Eye: Pupils equal round and reactive to light, Extraocular muscles intact and No periorbital ecchymosis or stepoff, no evidence of entrapment ENT: Oropharynx clear, no lacerations, no hemotympanum, no raccoon eyes or estes sign Cervical spine / Neck: No cervical spine bony tenderness, crepitance, or stepoff deformity Trachea midline Lungs: Clear to auscultation, No asymmetric rise and No crepitus, no flail chest Cardiac: Regular rate and rhythm and No murmurs Abdomen: Distended, lower abdominal TTP soft, No rebound Pelvis: Pelvis stable to compression : No evidence of genital injury Back: TTP over thoracic spine, no step-offs or deformities, Neuro: At baseline, intact strength and sensation in bilateral upper and lower extremities. 2+ patellar reflexes bilaterally. Extremities: NO gross Deformities, skin tear to the right forearm Psych: Normal affect MEDICAL DECISION MAKING: Chief Complaint: Fall External records reviewed: Reviewed prior ED visit Factors affecting care: Hypertension, hyperlipidemia, cirrhosis Social determinants of health: none History obtained from others: none Consults: none [facility] Narrative: The patient was initially hemodynamically stable, afebrile and nontoxic-appearing. Primary secondary trauma surveys concerning for the following differential. I considered the following differential diagnosis: Traumatic injuries to the brain, skull, cervical spine, thoracic lumbar spine, chest abdomen pelvis, right forearm, right elbow, left hip, arrhythmia, anemia, electro disturbance, ACS, decompensated liver disease I obtained a broad lab and imaging workup to further elucidate etiology of patient's complaints. Initially treated the patient's pain with oral Tylenol. Wound care was initially provided. ALL IMAGES (IF OBTAINED) HAVE BEEN PERSONALLY REVIEWED AND INTERPRETED BY MYSELF. EKG with normal sinus rhythm rate of 72, left ax deviation, slightly prolonged QT interval at 470, no STEMI CBC without leukocytosis, noted mild anemia and thrombocytopenia (Anemia & thrombocytopenia are essentially baseline) CT scan of the head and cervical spine were negative for acute traumatic injuries CT scan of the chest abdomen pelvis showed no evidence of acute traumatic injury CT scan lumbar spine shows no evidence of acute traumatic injury to the lumbar spine X-rays of the hip and pelvis, elbow and forearm were read and reviewed personally by myself showed no evidence of obvious bony abnormality. CMP without significant electrolyte abnormalities, no sign of metabolic acidosis or intercarpal effusion, baseline CKD, baseline hyperbilirubinemia as well as liver enzyme abnormalities Initial troponin negative. The patient ambulated well here. After discussion about admission and discharge with the patient and family they noted they were concerned that he would not do well at home. Discussed case hospitalist Dr. Nettles who agreed to admit the patient for observation. The patient and/or family, caregivers express understanding. The patient and/or family, caregivers agrees with the plan. Shared decision making: I will have a discussion with the patient and or visitors regarding risk/benefits of further testing or admission. They will be made aware of of the risk/benefits inherent in this decision they will be given the opportunity to voice understanding. Total critical care time today provided was at least 0 minutes. This excludes separately billable procedures. Critical care time (if documented) is secondary to the patient having high probability of clinically significant/life threatening deterioration in the patient's condition which required my urgent intervention. Impression: 1. Syncope 2. Closed head injury 3. History of cirrhosis 4. Chronic thrombocytopenia 5. Chronic anemia 6. Chronic hyperbilirubinemia Dispo: Admit This note was generated with [employer] dictation software. It may contain incorrect words, spelling, and punctuation that were not noted in review of the chart prior to signing. Lab Data Labs: Laboratory Results - last 24 hr 10/14/24 10/14/24 10/14/24 15:33 17:25 20:10 WBC 5.0 RBC 3.31 L Hgb 11.7 L Hct 35.0 L MCV 105.7 H MCH 35.3 H MCHC 33.4 RDW Std Deviation 54.2 H RDW Coeff of Randi 13.8 Plt Count 67 L MPV 9.7 Immature Gran % (Auto) 0.600 Neut % (Auto) 78.0 H Lymph % (Auto) 8.6 L Stevens % (Auto) 9.8 Eos % (Auto) 2.2 Baso % (Auto) 0.8 Absolute Neuts (auto) 3.9 Absolute Lymphs (auto) 0.43 L Nucleated RBC % 0 Sodium 137 Potassium 4.8 Chloride 107 Carbon Dioxide 21.1 Anion Gap 9 BUN 56 H Creatinine 1.53 H Estim Creat Clear Calc 37.11 L Est GFR (MDRD) Non-Af 44 L BUN/Creatinine Ratio 36.9 H Glucose 194 H Calcium 9.1 Magnesium 2.3 H Total Bilirubin 2.18 H AST 38 ALT 20 Alkaline Phosphatase 159 H Troponin T High Sens 35 H Troponin T Hi Sens 2 Hr 32 H Troponin T Hi Sens 4Hr 35 H Total Protein 5.6 L Albumin 3.0 L Globulin 2.6 Albumin/Globulin Ratio 1.2 Radiography Diagnostic Testing: Clinical Impression(s) from Imaging Studies Brain CT 10/14/24 16:30 IMPRESSION: 1. No acute intracranial finding. 2. Small hematoma along the right frontal scalp/nasal bridge. 3. Stable findings of chronic microvascular ischemic changes and age-related changes. Reading Location: [facility] Cervical Spine CT 10/14/24 16:30 IMPRESSION: NO ACUTE CERVICAL FRACTURE. DEGENERATIVE CHANGES. Reading Location: [facility] Chest/Abdomen/Pelvis CT 10/14/24 16:30 IMPRESSION: CT chest: 1. No acute thoracic finding on noncontrast CT examination. 2. Mild cardiomegaly and severe coronary artery calcifications. 3. Ectasia of the ascending thoracic aorta measuring 4.[address] abdomen/pelvis: 1. No acute abdominopelvic finding on noncontrast CT examination. 2. Findings of liver cirrhosis with findings of portal hypertension including splenomegaly, large volume ascites, lower esophageal and perisplenic varices and portal colopathy. Diagnostic and therapeutic paracentesis could be obtained for further evaluation if clinically indicated. 3. Incompletely characterized pancreatic hypodensity and left adrenal gland nodularity. If clinically indicated, CT abdomen with contrast could be obtained for further evaluation if not recently performed. Reading Location: [facility] Lumbar Spine CT 10/14/24 16:30 IMPRESSION: NO ACUTE LUMBAR FRACTURE. DEGENERATIVE CHANGES. Reading Location: [facility] Elbow X-Ray 10/14/24 16:40 IMPRESSION: DEGENERATIVE OSTEOARTHROSIS. NO ACUTE FINDINGS. Reading Location: [facility] Forearm X-Ray 10/14/24 16:40 IMPRESSION: No acute fracture or malalignment. Degenerative changes. Reading Location: [facility] Hip/Pelvis X-Ray 10/14/24 16:40 IMPRESSION: DEGENERATIVE OSTEOARTHROSIS. NO ACUTE FINDINGS. Reading Location: [facility] Discharge Plan Disposition Disposition: Acute Care Hospital [facility] Discharge Date/Time: 10/14/24 22:28
--- NOTE | 2024-10-14 15:25 | EKG12_ITS ---
Test Reason : Blood Pressure : */* mmHG Vent. Rate : 72 BPM Atrial Rate : 72 BPM P-R Int : 210 ms QRS Dur : 76 ms QT Int : 430 ms P-R-T Axes : 4 -26 25 degrees QTcB Int : 470 ms Sinus rhythm with 1st degree A-V block Otherwise normal ECG Confirmed by SHAWNA SOUTH, CARSON ([id number]), television news video editor JINNY MENDOZA ([id number]) on 10/15/2024 8:05:39 AM Referred By: Confirmed By: CARSON AMTOS MD
[2024-10-14] MEDS: Acetaminophen 325 MG Tablet 650 MG PO (15:35)
[2024-10-14 15:45] LABS: Absolute Lymphocyte Count 0.43 X10^3/uL (0.83-4.51); Absolute Neutrophil Count 3.9 X10^3/uL (2.0-7.7); Basophil# 0.04 X10^3/uL; Basophil% 0.8 % (0-1); Eosinophil# 0.11 X10^3/uL; Eosinophils% 2.2 % (0-5); Hemoglobin 11.7 g/dL (13.0-16.5); Lymphocyte # 0.43 X10^3/ul (0.83-4.51); Lymphocyte % 8.6 % (19-41); Mean Corp Hgb Conc 33.4 g/dL (32-36); Mean Corpuscular Hgb 35.3 pg (27.0-32.0); Mean Corpuscular Volume 105.7 fL (80-94); Mean Platelet Vol. 9.7 fl (6.2-12.0); Monocyte# 0.49 X10^3/uL; Monocyte% 9.8 % (0-10); NRBC Flagged by Analyzer 0 % (0-5); Neutrophil # 3.89 X10^3/uL (2.7-7.7); POSITIVE COUNT YES; POSITIVE DIFFERENTIAL YES; Platelet Count 67 K/mm3 (150-450); RBC Distribution Width CV 13.8 % (11.6-14.6); RBC Distribution Width SD 54.2 fl (35.1-43.9); Red Blood Count 3.31 M/mm3 (4.6-6.2)
[2024-10-14 16:23] LABS: ALB/GLOB Ratio 1.2 RATIO (0.9-2.4); AST(SGOT) 38 U/L (<=37); Alanine Aminotransfer ALT/SGPT 20 U/L (<=46); Alkaline Phosphatase 159 U/L (40-129); Anion Gap 9 (5-15); BUN 56 mg/dL (4-19); BUN/Creat Ratio 36.9 RATIO (10-20); Calcium,Total 9.1 mg/dL (7.6-11.0); Carbon Dioxide 21.1 mmol/L (21.0-32.0); Chloride 107 mmol/L (98-108); Creatinine, Serum 1.53 mg/dL (0.70-1.20); EST Glomerular Filtration Rate 44 (>60); Estimated Creatinine Clearance 37.11 ml/min (50-250); Globulin 2.6 g/dL (2.2-4.2); Glucose 194 mg/dL (70-99); Potassium 4.8 mmol/L (3.3-5.1); Protein, Total 5.6 g/dL (5.9-8.4); Sodium Level 137 mmol/L (133-145); Total Bilirubin 2.18 mg/dL (0.00-1.30); Troponin T High Sensitivity 35 ng/L (<=22)
--- NOTE | 2024-10-14 16:30 | CT_ITS ---
PROCEDURE: SPINE CERVICAL WITHOUT CONTRAS 10/14/2024 REASON FOR EXAM: 84-year-old male, neck pain, fall. TECHNIQUE: Cervical spine CT without contrast. Coronal and Sagittal reconstruction series were provided. One or more dose reduction techniques were used (e.g., Automated exposure control, adjustment of the mA and/or kV according to patient size, use of iterative reconstruction technique RADIATION DOSE SUMMARY: CTDlvol: 45 mGy DLP: 900 mGycm COMPARISON: CT C-spine 09/16/2022. FINDINGS: Alignment: No traumatic listhesis. Stable grade 1 anterolisthesis of C2 onto C3, and C7 onto T1. Vertebrae: No acute osseous fracture. Chronic, multilevel vertebral body height loss. Multilevel severe degenerative disc disease with posterior disc osteophyte complexes, uncovertebral facet hypertrophy resulting in mild central and moderate neural foraminal stenosis at C5-6. 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 No prevertebral soft tissue swelling or subcutaneous hematoma. CT/Spine Cervical without Contras IMPRESSION: NO ACUTE CERVICAL FRACTURE. DEGENERATIVE CHANGES. Reading Location: [id number]
--- NOTE | 2024-10-14 16:30 | CT_ITS ---
EXAM: BRAIN/HEAD WITHOUT CONTRAST CLINICAL HISTORY: 84-year-old male, fall with laceration to nose. COMPARISON: CT head 09/16/2022. TECHNIQUE: Routine CT imaging of the head without IV contrast. Additional multiplanar reformats were obtained. Dose reduction techniques were used including intermediate exposure control (AEC),iterative reconstruction technique, and/or mA and/or KV dose adjustments based on patient's size. FINDINGS: Moderate diffuse cerebral and cerebellar volume loss with concordant prominence of the ventricles and subarachnoid spaces. Moderate scattered supratentorial white matter hypodensities. 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 No acute intracranial hemorrhage or herniation. The basal cisterns are patent. The orbits, visualized paranasal sinuses and mastoids are unremarkable. No acute calvarial fracture. Small hematoma along the right frontal scalp/nasal bridge. CT/Brain/Head without Contrast IMPRESSION: 1. No acute intracranial finding. 2. Small hematoma along the right frontal scalp/nasal bridge. 3. Stable findings of chronic microvascular ischemic changes and age-related ch anges. Reading Location: [id number]
--- NOTE | 2024-10-14 16:30 | CT_ITS ---
PROCEDURE: CT CHEST, ABD, PELVIS WO CONT 10/14/2024 REASON FOR EXAM: 84-year-old male, fall. TECHNIQUE: Abdomen CT without and with intravenous contrast. Coronal and Sagittal reconstruction series were provided. One or more dose reduction techniques were used (e.g., Automated exposure control, adjustment of the mA and/or kV according to patient size, use of iterative reconstruction technique. PATIENT PREPARATION: Per protocol ORAL CONTRAST TYPE: None. TECHNIQUE: Chest, abdomen and pelvis CT without intravenous contrast. Coronal and Sagittal reconstruction series were provided. One or more dose reduction techniques were used (e.g., Automated exposure control, adjustment of the mA and/or kV according to patient size, use of iterative reconstruction technique. COMPARISON: None. FINDINGS: Visualization is limited without the use of IV contrast. CT CHEST: Hardware: None. Lymph nodes: Visualization is limited without the use of IV contrast. No axillary, mediastinal or hilar lymphadenopathy. Heart and Vasculature: Mild cardiomegaly without pericardial effusion. Marked coronary artery and thoracic aortic calcifications. Ectasia of the ascending thoracic aorta measuring 4.7 cm. The main pulmonary arteries normal caliber. Lungs and Airways: The central airways are patent. Mild pleural thickening along the bilateral pleural reflections, [id number]. Bibasilar atelectasis. No pleural effusion or pneumothorax. Bones: Diffuse osseous demineralization. Arthrosis of the bilateral glenohumeral joints. Degenerative changes of the thoracic spine. Chronic right posterior rib fracture deformities. CT ABDOMEN / PELVIS: Noncontrast technique limits evaluation of the abdominal and pelvic viscera. Liver: Marked cirrhotic morphology of the liver. No obvious biliary ductal dilation. Gallbladder: Large calcified stone within the gallbladder. Spleen: Mildly enlarged measuring 13.5 cm. Pancreas: The unopacified pancreas is atrophic with ill-defined hypodensity within the pancreatic tail, incompletely characterized, however likely a cyst or IPMN. Adrenals: Unremarkable right adrenal gland. Left adrenal gland nodularity, incompletely characterized. Kidneys: Moderate right and severe left renal cortical atrophy. Bilateral renal cysts and additional hypodensities, incompletely characterized. No hydronephrosis or nephrolithiasis. Bladder: Mildly distended and unremarkable. Reproductive Organs: Unremarkable. Bowel: Large volume abdominopelvic ascites. Lower esophageal and perisplenic varices. The bowel loops are normal in caliber with mild diffuse wall thickening, secondary to portal colopathy. No pneumoperitoneum. Normal appendix. Lymph nodes: Prominent portal lymph nodes, likely reactive. Vasculature: Marked calcific plaque of the aortoiliac vessels. Bones/soft tissues: Diffuse osseous demineralization. Lumbar spondylosis. Chronic mild height loss and sclerosis of the inferior L2 vertebral body. Left inguinal hernia containing fat and ascites. CT/CT Chest, Abd, Pelvis WO Cont IMPRESSION: CT chest: 1. No acute thoracic finding on noncontrast CT examination. 2. Mild cardiomegaly and severe coronary artery calcifications. 3. Ectasia of the ascending thoracic aorta measuring 4.[address] abdomen/pelvis: 1. No acute abdominopelvic finding on noncontrast CT examination. 2. Findings of liver cirrhosis with findings of portal hypertension including s plenomegaly, large volume ascites, lower esophageal and perisplenic varices and portal colopathy. Diagnostic and therap eutic paracentesis could be obtained for further evaluation if clinically indicated. 3. Incompletely characterized pancreatic hypodensity and left adrenal gland nod ularity. If clinically indicated, CT abdomen with contrast could be obtained for further evaluation if not recently performed. Reading Location: [id number]
--- NOTE | 2024-10-14 16:30 | CT_ITS ---
PROCEDURE: SPINE LUMBAR WITHOUT CONTRAST 10/14/2024 REASON FOR EXAM: 84-year-old male, fall, back pain. TECHNIQUE: Lumbar spine CT without contrast. Coronal and Sagittal reconstruction series were provided. One or more dose reduction techniques were used (e.g., Automated exposure control, adjustment of the mA and/or kV according to patient size, use of iterative reconstruction technique COMPARISON: None. RADIATION DOSE SUMMARY: CTDlvol: 31 mGy DLP: 1200 mGycm FINDINGS: Vertebrae: Chronic mild compression deformity of the inferior endplate of the L2 vertebral body with endplate sclerosis. No acute osseous fracture. The vertebral body heights are otherwise maintained. Alignment: Grade 1 retrolisthesis of L2 onto L3. No traumatic listhesis. Mild leftward curvature of the lower lumbar spine. Multilevel disc degeneration and posterior disc osteophytes, greatest at the L2- 3 intervertebral space, with facet arthrosis results in moderate central spinal stenosis at L2-3. Sacrum: The SI joints are maintained. See same day CT chest, abdomen and pelvis for additional findings. CT/Spine Lumbar without Contrast IMPRESSION: NO ACUTE LUMBAR FRACTURE. DEGENERATIVE CHANGES. Reading Location: [id number]
--- NOTE | 2024-10-14 16:40 | RAD_ITS ---
EXAM: FOREARM 2 VIEWS CLINICAL HISTORY: INJURY/PAIN COMPARISON: None. TECHNIQUE: Frontal and lateral views of right forearm FINDINGS: Diffuse osseous demineralization. No acute osseous fracture or aggressive osseous lesion. Arthrosis of the radiocapitellar and ulnotrochlear joints. There is no elbow joint effusion. No radiopaque foreign body is present. RAD/Forearm 2 Views IMPRESSION: No acute fracture or malalignment. Degenerative changes. Reading Location: [id number]
--- NOTE | 2024-10-14 16:40 | RAD_ITS ---
PROCEDURE: HIP, UNI W/ PELVIS 2-3 VIEWS 10/14/2024 REASON FOR EXAM: 84-year-old male, injury/pain, fall. TECHNIQUE: 2 views of the left hip. AP Pelvis. COMPARISON: Same day CT abdomen pelvis. FINDINGS: Pelvis: Diffuse osseous demineralization. No acute osseous fracture. Degenerative changes of the lumbar spine. Moderate arthrosis of the bilateral hip joints. The SI joints are grossly maintained. Bones left: No acute osseous fracture. Joints left: Normal alignment. Moderate degenerative changes. Soft tissues left: Soft tissues are unremarkable. Calcific plaque of the upper thigh vessels. RAD/HIP, UNI W/ Pelvis 2-3 Views IMPRESSION: DEGENERATIVE OSTEOARTHROSIS. NO ACUTE FINDINGS. Reading Location: [id number]
--- NOTE | 2024-10-14 16:40 | RAD_ITS ---
PROCEDURE: ELBOW MIN 3 VIEWS 10/14/2024 REASON FOR EXAM: INJURY/PAIN TECHNIQUE: 3 view(s) of the right elbow COMPARISON: Same day right forearm radiographs. FINDINGS: Bones: Diffuse osseous demineralization. No acute osseous fracture. Joints: Normal alignment. Moderate arthrosis. No effusion. Soft tissues: Soft tissues are unremarkable. Other: No radiopaque foreign body. RAD/Elbow min 3 Views IMPRESSION: DEGENERATIVE OSTEOARTHROSIS. NO ACUTE FINDINGS. Reading Location: [id number]
[2024-10-14 18:06] LABS: Troponin T High Sens 2 HR 32 ng/L (<=22)
--- NOTE | 2024-10-14 20:43 | PCM.HP.STD ---
[facility] - General General Date of Admission: 10/14/24 Date of Service: 10/14/24 Chief Complaint: Syncope. [facility] Narrative STARLA MEDINA, is a 84 M with a past medical history of essential hypertension; on carvedilol and torsemide, history of orthostatic hypotension; on midodrine 5mg PO TID, hyperlipidemia; on rosuvastatin, obesity; with BMI of 31.9 this admission, former tobacco abuse, history of cirrhosis with ascites; on rifaximin, chronic mild hyperbilirubinemia, chronic thrombocytopenia (~43K-~60K), history of anemia due to GI bleed from external hemorrhoids, RLS; on ropinirole, history of diverticulitis, history of hernia; s/p repair, history of pilonidal cyst; s/p excision, history of macular degeneration, history of cataract; s/p extraction, history of COVID-19, history of muscle spasms; on prn methocarbamol QID, BPH; on finasteride and tamsulosin, depression; on escitalopram and OA; with history of rib fracture who presents to [facility] ER complaining of syncope. Mr. Medina reports his symptoms began approximately one hour prior to arrival when he was in the kitchen when he bent over to get something and suddenly fell onto the floor. He admits to hitting his head along with injuring his Right forearm and Left hip. He denies prodromal symptoms and he does admit to LOC that likely lasted a few minutes. He admits to mild lower abdominal pain but he denies associated fever, chills, headache, chest pain, SOB, dysuria, hematuria or focal neurologic deficits. In the ER he was diagnosed with Syncope and Fall with Hematoma to the Right frontal bone and nasal bridge with no obvious lacerations along with extensive imaging that was negative for acute pathologic findings including fracture. Since the patient lives at home alone his family insisted to the ER physician he be admitted for formal Syncope evaluation. He was then admitted to the PCU under observation status for ongoing care for a stay that is expected to be less than 2 midnights. [facility] Medical History Abdominal ascites Wears dentures Bruising Prostate disease Restless legs History of diverticulitis Former smoker History of stress test Anemia due to gastrointestinal blood loss Bleeding external hemorrhoids Pilonidal cyst Macular degeneration Depression BPH (benign prostatic hyperplasia) High cholesterol Hypertension History of COVID-19 Hx of fracture of rib Home Medications ?Medication ?Instructions ?Recorded ?Last Taken ?Type finasteride 5 mg tablet 5 mg PO DAILY BPH 03/09/21 10/14/24 History ropinirole 0.25 mg tablet 0.25 mg PO PRN PRN restless legs 03/09/21 Unknown History tamsulosin 0.4 mg capsule 0.4 mg PO BID BPH 03/09/21 10/14/24 History nitroglycerin 0.4 mg sublingual 0.4 mg sublingual Q5M 08/01/23 Unknown History tablet midodrine 5 mg tablet 5 mg PO TIDCM 30 days #90 tabs 08/05/23 10/14/24 Rx taurine 1,000 mg capsule 1,000 mg PO Q6H 09/30/24 10/14/24 History rifaximin 550 mg tablet (Xifaxan) 550 mg PO BID 10/08/24 10/14/24 History escitalopram oxalate 20 mg tablet 20 mg PO DAILY 10/14/24 10/14/24 History zinc sulfate 50 mg zinc (220 mg) 100 mg PO DAILY 10/14/24 10/14/24 History capsule (Orazinc) Allergy/AdvReac Type Severity Reaction Status Date / Time amoxicillin (From Augmentin) Allergy Other Verified 10/14/24 15:10 clavulanic acid (From Allergy Other Verified 10/14/24 15:10 Augmentin) lisinopril AdvReac Other Verified 10/14/24 15:10 Family History Mother Cancer Sister Cancer Other Heart disease Surgical History History of cataract surgery History of excision of pilonidal cyst History of herniorrhaphy Social History household members: none Smoking Status: Never smoker alcohol intake: current alcohol intake frequency: other substance use type: does not use ROS ROS Narrative Review of Systems: Constitutional: Patient denies fever or chills. Eyes: Patient denies changes in vision or discharge from eyes. ENT: Patient admits to bruising across nasal bridge after fall but he denies runny nose, sore throat or ear pain. Resp: Patient denies SOB or cough. CV: Patient admits to syncope but he denies chest pain, palpitations, heart racing or LE edema. GI: Patient admits to lower abdominal pain with ascites but he denies nausea, vomiting, diarrhea or constipation. : Patient denies dysuria or hematuria. MSK: Patient admits to soreness of the Right forearm and Left hip after recent fall. Skin: Patient has hematoma over Right frontal bone and nasal bridge. Psych: Patient denies symptoms of uncontrolled depression or anxiety. Neuro: Patient denies headache, paresthesias or focal neurologic deficits. Allergy: Patient denies lip swelling, tongue swelling or urticaria. Hematology: Patient admits to easy bleeding with cirrhosis. Endocrinology: Patient denies polyuria, polydipsia, polyphagia or heat/cold intolerance. 14 point ROS otherwise negative except for positives noted above in HPI. Vital Signs Vital Signs Vital Signs: 10/14/24 15:05 10/14/24 15:12 10/14/24 17:05 Temperature 97.8 F Temperature Source Oral Pulse Rate 67 65 Respiratory Rate 18 15 Respiratory Effort Normal Non-Labored Respiratory Depth Normal Respiratory Pattern Normal Blood Pressure 124/61 H 120/66 Blood Pressure Mean 82 84 Pulse Ox 95 95 Oxygen Delivery Method Room Air Room Air 10/14/24 19:00 Temperature Temperature Source Pulse Rate 75 Respiratory Rate 20 H Respiratory Effort Respiratory Depth Respiratory Pattern Blood Pressure 105/74 Blood Pressure Mean 84 Pulse Ox 94 Oxygen Delivery Method Room Air Weight Weight: 198 lb 10.184 oz Body Mass Index (BMI) 31.9 Physical Exam Const alert, oriented x3, no apparent distress, average body habitus and healthy appearing General Appearance: cooperative HEENT HEENT Narrative: Patient has Right frontal hematoma and bruise across nasal bridge. Eyes PERRL, EOMs intact bilaterally and conjunctivae normal Neck no lymphadenopathy and supple Resp normal respiratory effort, no retractions, no use of accessory muscles and clear to auscultation bilaterally Cardio regular rate and regular rhythm GI normal to inspection, nondistended, normoactive bowel sounds, soft to palpation, non-tender and non-distended GI Narrative: Ascites with distention noted. Extremity full ROM Extremity Narrative: Patient has skin tear to the Right forearm. Skin Skin Narrative: Patient has skin tear to the Right forearm plus Right frontal hematoma. Neuro oriented x3, CN's II-XII intact bilaterally, moves all extremities and no focal motor deficits Sensorium / Orientation: awake, alert, oriented to person, oriented to place and oriented to time Speech: speech normal Motor Exam: strength 5/5 throughout Psych affect normal Results Medical Records Data Attestation: I reviewed the patient's medical records Lab / Micro Data Attestation: I reviewed the patient's lab results. 10/14/24 15:33 10/14/24 15:33 Labs: Laboratory Results - last 24 hr 10/14/24 15:33: WBC 5.0, RBC 3.31 L, Hgb 11.7 L, Hct 35.0 L, MCV 105.7 H, MCH 35.3 H, MCHC 33.4, RDW Std Deviation 54.2 H, RDW Coeff of Randi 13.8, Plt Count 67 L, MPV 9.7, Immature Gran % (Auto) 0.600, Neut % (Auto) 78.0 H, Lymph % (Auto) 8.6 L, [place] % (Auto) 9.8, Eos % (Auto) 2.2, Baso % (Auto) 0.8, Absolute Neuts (auto) 3.9, Absolute Lymphs (auto) 0.43 L, Nucleated RBC % 0, Sodium 137, Potassium 4.8, Chloride 107, Carbon Dioxide 21.1, Anion Gap 9, BUN 56 H, Creatinine 1.53 H, Estim Creat Clear Calc 37.11 L, Est GFR (MDRD) Non-Af 44 L, BUN/Creatinine Ratio 36.9 H, Glucose 194 H, Calcium 9.1, Total Bilirubin 2.18 H, AST 38, ALT 20, Alkaline Phosphatase 159 H, Troponin T High Sens 35 H, Total Protein 5.6 L, Albumin 3.0 L, Globulin 2.6, Albumin/Globulin Ratio 1.2 10/14/24 17:25: Troponin T Hi Sens 2 Hr 32 H Imaging Radiology Impression Brain CT 10/14/24 16:30 IMPRESSION: 1. No acute intracranial finding. 2. Small hematoma along the right frontal scalp/nasal bridge. 3. Stable findings of chronic microvascular ischemic changes and age-related changes. Reading Location: [facility] Cervical Spine CT 10/14/24 16:30 IMPRESSION: NO ACUTE CERVICAL FRACTURE. DEGENERATIVE CHANGES. Reading Location: [facility] Chest/Abdomen/Pelvis CT 10/14/24 16:30 IMPRESSION: CT chest: 1. No acute thoracic finding on noncontrast CT examination. 2. Mild cardiomegaly and severe coronary artery calcifications. 3. Ectasia of the ascending thoracic aorta measuring 4.[address] abdomen/pelvis: 1. No acute abdominopelvic finding on noncontrast CT examination. 2. Findings of liver cirrhosis with findings of portal hypertension including splenomegaly, large volume ascites, lower esophageal and perisplenic varices and portal colopathy. Diagnostic and therapeutic paracentesis could be obtained for further evaluation if clinically indicated. 3. Incompletely characterized pancreatic hypodensity and left adrenal gland nodularity. If clinically indicated, CT abdomen with contrast could be obtained for further evaluation if not recently performed. Reading Location: [facility] Lumbar Spine CT 10/14/24 16:30 IMPRESSION: NO ACUTE LUMBAR FRACTURE. DEGENERATIVE CHANGES. Reading Location: [facility] Elbow X-Ray 10/14/24 16:40 IMPRESSION: DEGENERATIVE OSTEOARTHROSIS. NO ACUTE FINDINGS. Reading Location: [facility] Forearm X-Ray 10/14/24 16:40 IMPRESSION: No acute fracture or malalignment. Degenerative changes. Reading Location: [facility] Hip/Pelvis X-Ray 10/14/24 16:40 IMPRESSION: DEGENERATIVE OSTEOARTHROSIS. NO ACUTE FINDINGS. Reading Location: [facility] Assessment & Plan Assessment/Plan (1) Syncope and collapse: (2) Hematoma of frontal scalp: (3) Skin tear of right forearm without complication: (4) Orthostatic hypertension: (5) Adverse drug reaction: (6) Obesity (BMI 30.0-34.9): PLAN: Plan 1. Syncope with Mechanical Fall resulting in Right frontal hematoma and Right forearm skin tear - Admit to PCU under observation status. Give IV albumin to prevent worsening ascites with crystalloids. Check echocardiogram to evaluate LVEF. Check carotid Doppler to evaluate for stenosis. Check 8 AM cortisol to evaluate for possible underlying adrenal insufficiency. Give acetaminophen prn [id number] (level 1-5/10) pain or fever. Give oxycodone prn for severe (level 6-10/10) pain. 2. Orthostatic hypotension; on midodrine 5mg PO TID complicating #1 - Increase midodrine to 10 mg PO TID and monitor for improvement. 3. BPH; on finasteride and tamsulosin with possible Adverse Drug Reaction contributing to #1 - Continue finasteride but hold tamsulosin in case this is an offending agent with known side effect of syncope. 4. History of cirrhosis with ascites with chronic mild hyperbilirubinemia; on rifaximin adding to the medical complexity of #1 - #3 - Stable with prescheduled paracentesis upcoming soon. 5. Obesity; with BMI of 31.9 this admission adding to the burden of disease outlined form #1 - #4 - Weight loss will be recommended. Check TSH. This complicates his case and may hamper recovery. 6. Essential Hypertension; on carvedilol and torsemide - Hold scheduled antihypertensives in light of #1 & #2. 7. History of Hyperlipidemia; on rosuvastatin - Resume statin and check Lipid Profile. 8. Chronic thrombocytopenia (~43K-~60K) - Stable with platelet count of 67K present on admission. 9. Former tobacco abuse - Noted. 10. History of anemia due to GI bleed from external hemorrhoids - Stable with no evidence of bleeding at this time. 11. RLS; on ropinirole - Resume ropinirole as previous. 12. History of diverticulitis - Noted. 13. History of hernia; s/p repair - Noted. 14. History of pilonidal cyst; s/p excision - Noted for the sake of completeness. 15. History of macular degeneration - Noted. 16. History of cataract; s/p extraction - Noted. 17. History of COVID-19 - Noted. 18. History of muscle spasms; on prn methocarbamol QID - Maintain current regimen. 19. Depression; on escitalopram - Continue escitalopram as before. 20. OA; with history of rib fracture - Stable. Give acetaminophen prn [id number] (level 1-5/10) pain or fever as per pain scale outline in #1. 21. DVT prophylaxis - SCD's only. His thrombocytopenia contraindicates chemoprophylaxis. Total time: Approximately (but not less than) 85 minutes. Charges/Coding Visit Charges OBSV E&M: 63580 Observ/hosp same date L3
[2024-10-14 20:49] LABS: Troponin T High Sens 4 HR 35 ng/L (<=22)
[2024-10-14 22:28] LABS: Magnesium 2.3 mg/dL (1.5-2.2)
--- NOTE | 2024-10-14 22:35 | CDU_ITS ---
Reason For Study Reason For Study: Syncope Rt. Velocities/BP Lt. Velocities/BP Prox CCA 92.9/14.5 cm/sec. Prox CCA 111.3/11.3 cm/sec. Mid CCA 74.9/13.5 cm/sec. Mid CCA 75.1/10.2 cm/sec. Dist CCA 74.9/12.6 cm/sec. Dist CCA 111.3/20.1 cm/sec. Prox ICA 80.6/17.9 cm/sec. Prox ICA 279/52.7 cm/sec. Mid ICA 79.5/13.5 cm/sec. Mid ICA 97.2/18.2 cm/sec. Dist ICA 70.7/11.3 cm/sec. Dist ICA 84.6/20.6 cm/sec. Rt. ICA/CCA = 1.08. Lt. ICA/CCA = 3.72. Prox ECA 163.1/13.3 cm/sec. Prox ECA 163.1/18.2 cm/sec. Rt. Vert. 64.8/12.5 cm/sec. Lt. Vert. 46.5/9.9 cm/sec. Right Extracranial There is homogeneous, smooth atherosclerotic plaque noted in the right common carotid artery. There is heterogeneous, irregular atherosclerotic plaque noted in the right internal carotid artery. There is heterogeneous, irregular atherosclerotic plaque noted in the right external carotid artery. Antegrade flow is noted in the right vertebral artery. Left Extracranial There is homogeneous, smooth atherosclerotic plaque noted in the left common carotid artery. There is heterogeneous, irregular atherosclerotic plaque noted in the left internal carotid artery. There is heterogeneous, irregular atherosclerotic plaque noted in the left external carotid artery. Antegrade flow is noted in the left vertebral artery. Procedure Carotid Duplex 73200. This is a Carotid Duplex examination using B-mode, color flow and specral Doppler. Preliminary report given to [place] HERNANDEZ. Exam performed portable in patient room. VL/Carotid Duplex Ultrasound Interpretation Summary Mild (<50%) stenosis right extracranial internal carotid. Severe (>70%) stenosis left extracranial internal carotid. Patent and antegrade vertebrals bilaterally. Ordering Physician: Jasvir Fatima Referring Physician: MD Leah Adam Performed By: Penny Arriaga RVT
--- NOTE | 2024-10-14 22:35 | ECHOD_ITS ---
Reason For Study Reason For Study: SYNCOPE Procedure This was a 2D Doppler, Color Flow transthoracic echocardiogram. Exam performed in department. Left Ventricle Normal LV size. The estimated ejection fraction is 60 %. Diastolic function is indeterminate. Left ventricular systolic function is normal. Right Ventricle Normal RV size. Normal systolic function. Atria The left and right atria are normal. Mitral Valve Mild mitral annular calcification. There is no mitral valve stenosis. Tricuspid Valve Normal tricuspid valve. Trivial tricuspid valve insufficiency. Unable to estimate RV systolic pressure due to insufficient tricuspid regurgitant envelope. Aortic Valve The aortic valve is not well visualized in the short axis view. There is no aortic stenosis. Pulmonic Valve The pulmonic valve is not well visualized. Great Vessels Normal sized aortic root. Mildly calcified aortic root. Pericardium/Pleural No pericardial effusion. MMode/2D Measurements & Calculations RVDd: 2.3 cm LAV(MOD-bp): 49.7 ml LVAd ap4: 25.5 cm2 LAV(MOD-bp) Indexed: 25.7 ml/m2 LVLd ap4: 8.6 cm LAV(MOD-sp2): 43.4 ml EDV(MOD-sp4): 64.5 ml LAV(MOD-sp4): 51.4 ml EDV(sp4-el): 64.2 ml LVAs ap4: 10.1 cm2 LVLs ap4: 6.4 cm ESV(MOD-sp4): 14.8 ml ESV(sp4-el): 13.7 ml EF(MOD-sp4): 77.1 % EF(sp4-el): 78.6 % SV(MOD-sp4): 49.7 ml SV(sp4-el): 50.5 ml LA A4 area: 19.3 cm2 SI(MOD-sp4): 25.7 ml/m2 RA A4 area: 12.3 cm2 Time Measurements MV dec time: 0.14 sec Doppler Measurements & Calculations MV E max jerardo: 74.1 cm/sec Lat Peak E' Jerardo: 10.6 cm/sec Med Peak E' Jerardo: 7.9 cm/sec MV A max jerardo: 115.3 cm/sec E/E' lat: 7.0 E/E' med: 9.4 MV E/A: 0.64 MV V2 max: 120.7 cm/sec MV dec slope: 528.2 cm/sec2 Ao V2 max: 168.6 cm/sec MV max P.8 mmHg Ao max P.4 mmHg MV V2 mean: 62.7 cm/sec Ao V2 mean: 113.8 cm/sec MV mean P.0 mmHg Ao mean P.9 mmHg MV V2 VTI: 30.4 cm Ao V2 VTI: 34.6 cm AV (velocity ratio): 0.77 LV V1 max: 126.2 cm/sec LV V1 max P.4 mmHg LV V1 mean P.6 mmHg LV V1 mean: 89.4 cm/sec LV V1 VTI: 26.8 cm ECHO/Echo Complete Interpretation Summary The estimated ejection fraction is 60 %. Diastolic function is indeterminate. Mild mitral annular calcification. Ordering Physician: Jasvir Fatima Referring Physician: MD Leah Adam Performed By: Renee Agustin RCS
--- NOTE | 2024-10-14 22:35 | MRI_ITS ---
PROCEDURE: BRAIN WITHOUT CONTRAST 10/15/2024 REASON FOR EXAM: EVALUATE FOR CVA. TECHNIQUE: Brain MRI without intravenous contrast COMPARISON: Head CT 10/14/2024 FINDINGS: Motion artifact limits the evaluation. No acute infarct, mass effect or intracranial hemorrhage. No abnormal parenchymal signal intensity identified. The ventricles appear within limits and midline. Note of a cavum septum pellucidum, anatomic variant. Moderate global volume loss, atrophy. Major intracranial flow voids appear within limits. The paranasal sinuses, mastoids and orbits appear within limits. The internal auditory canals appear within limits. MRI/Brain without Contrast IMPRESSION: Motion artifact limits the evaluation. No acute infarct, mass effect or intrac ranial hemorrhage. Moderate global volume loss, atrophy. Reading Location: [id number]
[2024-10-14] MEDS: Albumin Human 25% (100 mL) 25 GM/100 ML BAG IV (23:38)
[2024-10-14] MEDS: 0.9% Saline Lock 10 ML Syringe IV (23:38)
[2024-10-14 23:39] LABS: Vitamin B12 1662 pg/mL (180-914)
[2024-10-14] MEDS: rifAXIMin 550 MG Tablet PO (23:54)
[2024-10-15] VITALS (11 sets, daily range): BP systolic 96–131; BP diastolic 46–73; PULSE 74–91; RESP 14–18; TEMP 36.3–37; O2SAT 93–98; BMI 29.8
[2024-10-15] MEDS: 0.9% Normal Saline (1000mL) 1,000 ML 50 ML IV (01:23)
[2024-10-15 06:13] LABS: Absolute Lymphocyte Count 0.36 X10^3/uL (0.83-4.51); Absolute Neutrophil Count 3.3 X10^3/uL (2.0-7.7); Basophil# 0.02 X10^3/uL; Basophil% 0.4 % (0-1); Eosinophil# 0.17 X10^3/uL; Eosinophils% 3.8 % (0-5); Lymphocyte # 0.36 X10^3/ul (0.83-4.51); Lymphocyte % 8.1 % (19-41); Mean Corp Hgb Conc 34.5 g/dL (32-36); Mean Corpuscular Hgb 35.3 pg (27.0-32.0); Mean Corpuscular Volume 102.5 fL (80-94); Mean Platelet Vol. 10.1 fl (6.2-12.0); Monocyte# 0.57 X10^3/uL; Monocyte% 12.8 % (0-10); NRBC Flagged by Analyzer 0.7 % (0-5); Neutrophil # 3.33 X10^3/uL (2.7-7.7); Neutrophil % 74.5 % (47-70); POSITIVE COUNT YES; POSITIVE DIFFERENTIAL YES; Platelet Count 51 K/mm3 (150-450); RBC Distribution Width CV 13.7 % (11.6-14.6); RBC Distribution Width SD 51.2 fl (35.1-43.9); Red Blood Count 2.83 M/mm3 (4.6-6.2); White Blood Count 4.5 K/mm3 (4.4-11.0)
[2024-10-15 06:18] LABS: International Normalized Ratio 1.5; Prothrombin Time (Protime)PT. 18.4 SECONDS (11.7-14.9)
[2024-10-15 06:57] LABS: Cholesterol 90 mg/dL (<=200); High Density Lipoprotein 39 mg/dL; Low Density Lipoprotein Calc. 43 mg/dL; Triglycerides 42 mg/dL; Very Low Density Lipoprotein 8 mg/dL (5-40); cholesterol:hdl ratio screen 2.31
[2024-10-15 07:09] LABS: Phosphorus 2.5 mg/dL (2.7-4.5)
[2024-10-15 07:18] LABS: CORTISOL AM 9.08 ug/dL (6.02-18.40)
[2024-10-15 07:25] LABS: ALB/GLOB Ratio 1.5 RATIO (0.9-2.4); AST(SGOT) 32 U/L (<=37); Alanine Aminotransfer ALT/SGPT 17 U/L (<=46); Albumin, Serum 3.1 g/dL (3.4-4.8); Alkaline Phosphatase 72 U/L (40-129); Anion Gap 16 (5-15); BUN 46 mg/dL (4-19); BUN/Creat Ratio 34.3 RATIO (10-20); Calcium,Total 7.4 mg/dL (7.6-11.0); Carbon Dioxide 11.9 mmol/L (21.0-32.0); Chloride 111 mmol/L (98-108); Creatinine, Serum 1.34 mg/dL (0.70-1.20); EST Glomerular Filtration Rate 52 (>60); Estimated Creatinine Clearance 40.95 ml/min (50-250); Globulin 2.1 g/dL (2.2-4.2); Glucose 69 mg/dL (70-99); Potassium 4.6 mmol/L (3.3-5.1); Protein, Total 5.2 g/dL (5.9-8.4); Sodium Level 138 mmol/L (133-145); Total Bilirubin 0.86 mg/dL (0.00-1.30)
--- NOTE | 2024-10-15 08:17 | PCM.PN.HOSP ---
Reason for Visit Reason for Visit: Diagnoses Obesity, class 1 (10/14/24) Essential (primary) hypertension (10/14/24) Syncope and collapse (10/14/24) Contusion of scalp, initial encounter (10/14/24) Laceration without foreign body of right forearm, initial encounter (10/14/24) Adverse effect of unspecified drugs, medicaments and biological substances, initial encounter (10/14/24) Subjective Subjective No recollection of fall, but did hit his head. Has had other falls where he has no recollection. He has periods where he may not be able to articulate the words or his voice may be soft. Does drop objects. Does also fall backwards some of his falls. And does have difficulty seeing the floor when he is walking. Objective Data Objective Data Vital Signs: Vital Signs Temp Pulse Resp BP Pulse Ox O2 Del Method 36.3 C L 76 16 109/64 93 Room Air 10/15/24 05:15 10/15/24 05:15 10/15/24 05:15 10/15/24 05:15 10/15/24 07:33 10/15/24 07:33 Oxygen Delivery Method Room Air Weight: 83.9 kg Body Mass Index (BMI) 29.8 Intake & Output: Intake and Output for Last 24 Hours 10/13/24 10/14/24 10/15/24 23:59 23:59 23:59 Intake Total 0 / 0 100 / 100 Output Total 0 / 0 0 / 0 Balance 0 / 0 100 / 100 Lab / Micro Data 10/15/24 05:34 10/15/24 05:34 Labs: Laboratory Results - last 24 hr 10/14/24 15:33: WBC 5.0, RBC 3.31 L, Hgb 11.7 L, Hct 35.0 L, MCV 105.7 H, MCH 35.3 H, MCHC 33.4, RDW Std Deviation 54.2 H, RDW Coeff of Randi 13.8, Plt Count 67 L, MPV 9.7, Immature Gran % (Auto) 0.600, Neut % (Auto) 78.0 H, Lymph % (Auto) 8.6 L, [place] % (Auto) 9.8, Eos % (Auto) 2.2, Baso % (Auto) 0.8, Absolute Neuts (auto) 3.9, Absolute Lymphs (auto) 0.43 L, Nucleated RBC % 0, Sodium 137, Potassium 4.8, Chloride 107, Carbon Dioxide 21.1, Anion Gap 9, BUN 56 H, Creatinine 1.53 H, Estim Creat Clear Calc 37.11 L, Est GFR (MDRD) Non-Af 44 L, BUN/Creatinine Ratio 36.9 H, Glucose 194 H, Calcium 9.1, Total Bilirubin 2.18 H, AST 38, ALT 20, Alkaline Phosphatase 159 H, Troponin T High Sens 35 H, Total Protein 5.6 L, Albumin 3.0 L, Globulin 2.6, Albumin/Globulin Ratio 1.2 10/14/24 17:25: Troponin T Hi Sens 2 Hr 32 H 10/14/24 20:10: Magnesium 2.3 H, Troponin T Hi Sens 4Hr 35 H, Vitamin B12 1662 H 10/15/24 05:34: WBC 4.5, RBC 2.83 L, Hgb 10.0 L, Hct 29.0 L, MCV 102.5 H, MCH 35.3 H, MCHC 34.5, RDW Std Deviation 51.2 H, RDW Coeff of Randi 13.7, Plt Count 51 L, MPV 10.1, Immature Gran % (Auto) 0.400, Neut % (Auto) 74.5 H, Lymph % (Auto) 8.1 L, [place] % (Auto) 12.8 H, Eos % (Auto) 3.8, Baso % (Auto) 0.4, Absolute Neuts (auto) 3.3, Absolute Lymphs (auto) 0.36 L, Nucleated RBC % 0.7, PT 18.4 H, INR 1.5, Sodium 138, Potassium 4.6, Chloride 111 H, Carbon Dioxide 11.9 L, Anion Gap 16 H, BUN 46 H, Creatinine 1.34 H, Estim Creat Clear Calc 40.95 L, Est GFR (MDRD) Non-Af 52 L, BUN/Creatinine Ratio 34.3 H, Glucose 69 L, Calcium 7.4 L, Phosphorus 2.5 L, Total Bilirubin 0.86, AST 32, ALT 17, Alkaline Phosphatase 72, Total Protein 5.2 L, Albumin 3.1 L, Globulin 2.1 L, Albumin/Globulin Ratio 1.5, Triglycerides 42, Cholesterol 90, LDL Cholesterol, Calc 43, VLDL Cholesterol 8, HDL Cholesterol 39 L, Cholesterol/HDL Ratio 2.31, Serum Folate 15.90, TSH 2.550, Cortisol AM Sample 9.08 Radiography Diagnostic Testing: Radiology Impression Brain CT 10/14/24 16:30 IMPRESSION: 1. No acute intracranial finding. 2. Small hematoma along the right frontal scalp/nasal bridge. 3. Stable findings of chronic microvascular ischemic changes and age-related changes. Reading Location: [facility] Cervical Spine CT 10/14/24 16:30 IMPRESSION: NO ACUTE CERVICAL FRACTURE. DEGENERATIVE CHANGES. Reading Location: [facility] Chest/Abdomen/Pelvis CT 10/14/24 16:30 IMPRESSION: CT chest: 1. No acute thoracic finding on noncontrast CT examination. 2. Mild cardiomegaly and severe coronary artery calcifications. 3. Ectasia of the ascending thoracic aorta measuring 4.[address] abdomen/pelvis: 1. No acute abdominopelvic finding on noncontrast CT examination. 2. Findings of liver cirrhosis with findings of portal hypertension including splenomegaly, large volume ascites, lower esophageal and perisplenic varices and portal colopathy. Diagnostic and therapeutic paracentesis could be obtained for further evaluation if clinically indicated. 3. Incompletely characterized pancreatic hypodensity and left adrenal gland nodularity. If clinically indicated, CT abdomen with contrast could be obtained for further evaluation if not recently performed. Reading Location: [facility] Lumbar Spine CT 10/14/24 16:30 IMPRESSION: NO ACUTE LUMBAR FRACTURE. DEGENERATIVE CHANGES. Reading Location: [facility] Elbow X-Ray 10/14/24 16:40 IMPRESSION: DEGENERATIVE OSTEOARTHROSIS. NO ACUTE FINDINGS. Reading Location: [facility] Forearm X-Ray 10/14/24 16:40 IMPRESSION: No acute fracture or malalignment. Degenerative changes. Reading Location: [facility] Hip/Pelvis X-Ray 10/14/24 16:40 IMPRESSION: DEGENERATIVE OSTEOARTHROSIS. NO ACUTE FINDINGS. Reading Location: [facility] Physical Exam Const alert and no apparent distress HEENT HEENT Narrative: Bruising over right eye Eyes PERRL Eyes Narrative: No icterus. Impaired vertical saccades of vertical gaze bilaterally Resp normal respiratory effort and no retractions GI GI Narrative: Abdomen distended but nontender. Taut. Neuro Sensorium / Orientation: awake and alert Assessment & Plan Assessment/Plan (1) Syncope: PLAN: MRI ordered. Nonorthostatic Etiologies could be an arrhythmia as patient has no recollection of the event though I am favoring him falling and having antecedent amnesia from a concussion. Patient has had these frequent falls at home that have been unwitnessed. Will continue to monitor on telemetry for now. (2) Hematoma of frontal scalp: PLAN: 2/2 fall. Supportive management (3) Debility: PLAN: This has been overall progressive. Patient's activity has been variable throughout the day and sometimes some of his symptoms can be more prominent particularly early in the morning. MRI of the brain is currently pending but I am concerned that patient may have some midbrain atrophy and with some of his symptoms I would be concerned about some neurodegenerative process, particularly progressive supranuclear palsy. Patient has been following, primarily backwards, he has impaired vertical saccades. Though this is not confirmatory by any means of PSP I did recommend to the patient and his family that he see a movement disorder specialist to further clarify this. They would prefer [facility] on as he has had other care doctor for other reasons. Patient did work with therapy and was able to walk 100 feet with 4 wheeled walker with standby assist. Though at that moment he may be good concerned by the other times when he is more tired that he would be more at risk for falls as I do not feel his falls are related with some undiagnosed arrhythmia. (4) Abdominal ascites: QUALIFIERS: Ascites type: other type Qualified Code(s): R18.8 - Other ascites PLAN: Had been on diuretics in the past but because of the kidney issues which his turkey boner had taken him off. Meantime patient has just been getting scheduled ascites with albumin infusions based volume taken off. Patient underwent a ultrasound-guided paracentesis that removed 6.75 L of fluid. Will give the patient 50 g of albumin PLAN: Plan Greater than 60 minutes of which greater than 50% of time was counseling the patient and his family at bedside, including the patient's daughter on speaker phone, and explained the recommendations. Charges/Coding Visit Charges Inpatient E&M: 31782 [facility] L3
[2024-10-15] MEDS: Escitalopram Oxalate 20 MG Tablet PO (08:34)
[2024-10-15] MEDS: rifAXIMin 550 MG Tablet PO ×2 (08:34→22:41)
[2024-10-15] MEDS: Zinc Sulfate 50 mg zinc (220 mg) ORAL capsule 100 MG PO (08:34)
[2024-10-15] MEDS: Finasteride 5 MG Tablet PO (08:34)
[2024-10-15] MEDS: Midodrine HCl 5 MG Tablet 10 MG PO ×3 (08:34→16:13)
--- NOTE | 2024-10-15 09:58 | US_ITS ---
EXAM: Ultrasound-guided paracentesis. CLINICAL HISTORY: Recurrent ascites. COMPARISON: October 08, 2024. TECHNIQUE: See below. FINDINGS: Informed consent was obtained. Direct ultrasound guidance, aseptic technique, local anesthesia were utilized. 7 Kinyarwanda sheath needle was used to enter the peritoneal cavity. Subsequently, total of 6650 mL of straw-colored fluid was removed and the catheter was discontinued. Samples were sent to the pathology laboratory as per request. The patient tolerated the procedure well and was discharged home directly in good condition. US/Paracentesis with US IMPRESSION: Uneventful ultrasound-guided paracentesis. Reading Location: [facility]
--- NOTE | 2024-10-15 10:35 | FLU_PTH ---
PATIENT: STARLA GALE LOC: [facility] U#:[id number] AGE/SX: 84/M ROOM: [facility] RE10/16/[address]: Dr. Srikanth Johnson MD : [id number] BED: 1 DIS: 10/20/2024 SPEC #: [id number] RECD: 10/15/24 11:19 STATUS: KENNY RELu #: [id number] SOLA: 10/15/24 10:[address]: Augustin Harrison DEPT: CYTOLOGY RECD BY: Donna Barrios ENTERED: 10/16/24 09:18 SP TYPE: Fluid OTHR DR: DO Dr. Adam Jeffery MD Tissues: A - PARACENTESIS FLUID Procedures: Special Stain Group II Surgery Specimen Level IV Cytospin Fluid HEADER OPERATION: Ultrasound guided paracentesis PRE-OP DIAGNOSIS: Ascites TISSUE SUBMITTED: A- Paracentesis fluid for cytology DIAGNOSIS CYTOLOGY A. Paracentesis fluid: * No malignant cells identified. COMMENT The slides were reviewed in intradepartmental consultation by Dr Nayan Douglas ([facility]). CYTOLOGY STUDY Slides are reviewed. CYTOLOGY GROSS A. Received is 90 ml of yellow cloudy fluid labeled with the patient's name and and designated per the requisition as Paracentesis fluid. Submitted for cytology preparation (cytospin x1, cellblock x1). Mr 10/16/2024 CPT: 71340
[2024-10-15] MEDS: Lidocaine 2% (20 ml mdv) 20 ML Vial INFILT (10:40)
[2024-10-15] MEDS: Ensure Plus High Protein 120 ML LIQUID PO (12:01)
[2024-10-15] MEDS: 0.9% Saline Lock 10 ML Syringe IV ×3 (12:01→19:43)
[2024-10-15] MEDS: Acetaminophen 325 MG Tablet 650 MG PO (12:01)
[2024-10-15 12:03] LABS: Partial Thromboplast Time 36.8 Seconds (24.1-36.2)
--- NOTE | 2024-10-15 14:07 | WOUNDNOTE ---
wound photo: right hand/wrist
--- NOTE | 2024-10-15 14:07 | WOUNDNOTE ---
wound photo: right lateral forearm
--- NOTE | 2024-10-15 14:08 | CHAPLAIN ---
Type of Pastoral Visit _x__ Initial Visit ___ Follow-up Visit ___ On-call Visit ___ General Patient Visit ___ Spiritual Assessment ___ Family Conference ___ Bereavement ___ Rapid Response ___ Code Blue ___ Other (describe below) Pastoral Care Referral From _x__ Patient ___ Family ___ Nurse ___ Physician ___ Air Filler ___ Tariff Compiling Clerk ___ Other (describe below) Sacrament/Intervention _x__ Active listening ___ Anointing ___ Gnosticist ___ Bereavement ___ Communion ___ Myra exploration ___ _x__ Life review _x__ Prayer ___ Reconciliation ___ Sacrament of Sick ___ Supportive presence ___ Wedding ___ Other (describe below) Pastoral Comments patient is banged up from a fall which has been a concern in these past weeks; is with him in the room as RN was leaving from performing her duties; both give some of the details of the fall and increasing concerns over the past weeks for the patient; couple has been 67 years and talk about that; couple belong to a local hindu but have been unable to attend much recently; both welcome prayers and presence in support
--- NOTE | 2024-10-15 15:15 | CASEMGMT ---
Addendum entered by Kymberly Anne 10/15/24 18:02: 4:30 PM: Per Shira @ [facility], they are able to accept pt, w/SOC slated for Saturday. MARY BAIRES to room. Pt sitting up in chair, and son in room visiting. They were all made aware [facility] able to accept w/SOC slated for Saturday. Son and had further questions re: discharge planning, therapy, and other options. Questions answered. Son and both interested in [facility], if they are able to accept him, stating they feel pt would benefit from this so he can get stronger before returning home. Son states he does not want a list of other RU options, as he prefers pt to stay @ [facility], if able. and pt both agreeable. Original Note: MARY BAIRES NOTE: MARY BAIRES to room. Pt is out of room at this time. and son are @ bedside. Introduced self and role. Discussed therapy and discharge planning. states she feels comfortable taking pt home, but states she and son have been talking about how she will need to be more present w/pt while he is up walking around to assist him, as he has been falling. Discussed options of HHC and OP therapy and questions answered. Pt and son decided they would like HHC and chose [facility] as 1st preference, declining list of other [facility] options. Son did inquire about SNF. They were made aware pt is currently OBS status, and made aware of [facility]'s 3 [place] In-patient criteria for SNF benefits. Also made aware of option of private-pay for SNF, if pt would not meet [facility]'s criteria by the time he is medically ready for discharge. Further questions answered. They state pt does have a rollator @ home and deny having other DME needs. They would like to get any new Rx's from [facility]'s pharmacy. They deny having further questions or dc needs at this time. Call placed to [facility] and referral made. Amandeep PULLIAM RN, CM
--- NOTE | 2024-10-15 15:58 | CASEMGMT ---
Met with patients and son to complete JOHNSON form. JOHNSON form explained to both who voiced understanding and signed form. Original form placed in pt?s chart and copy provided to patient. Barbara Pizarro, Discharge Planning Asst
[2024-10-15] MEDS: Albumin Human 25% (100 mL) 25 GM/100 ML BAG IV ×2 (16:09→18:02)
[2024-10-15 18:13] LABS: Ammonia 74.1 umol/L (16-60)
[2024-10-15 20:24] LABS: Auto B Fluid Analyzer BKGD Ct COUNTS W/IN LIMITS (W/IN LIMITS); Source- Body Fluid PARACENTESIS
[2024-10-15 20:25] LABS: Appearance/Body Fluid CLOUDY; Body Fluid Total Cells Counted 0.064 10^3/ul; Color/Body Fluid YELLOW
[2024-10-15 20:26] LABS: Red Cell Count/Body Fluid 35 /mm3; White Blood Count/Body Fluid 0.055 10^3/uL
[2024-10-15 20:27] LABS: Body Fluid Mononuclear WBC % 63.6 %; Body Fluid Polynuclear WBC % 36.4 %
[2024-10-15 20:28] LABS: Body Fluid Mononuclear WBC # 0.035 10^3/uL; Body Fluid Polynuclear WBC # 0.055 10^3/uL; Lymphocytes 28 %; Monocytes 52 %; Neutrophil (Segs) 20 %
[2024-10-15 20:30] LABS: Body Fluid QC Type(s) BF2Q
[2024-10-16 01:17] LABS: Bacteria 0 SEEN /hpf (None Seen); Mucous, Urine 0 SEEN /hpf (<or=2+); White Blood Cells 0 SEEN /hpf (0-5)
[2024-10-16 01:22] LABS: Color, Urine Yellow (Yellow); Glucose, Dipstick Normal (Normal); Ketone-Dipstick Negative (Negative); Leukocyte Esterase-Dipstick Negative /ul (Negative); Nitrite-Dipstick Negative (Negative); Occult Blood-Urine 150 /ul (Negative); Protein-Dipstick 15 mg/dl (Negative); Specific Gravity, Urine 1.015 (1.002-1.030); Urine Bilirubin Dipstick Negative (Negative); Urine Clarity Clear (Clear); Urine Urobilinogen Normal (Normal)
[2024-10-16 01:31] LABS: Red Blood Cells-Urine 25-50 SEEN /hpf (0-5); Squamous Epithelial Cells - UA 0-5 SEEN /hpf (0-5)
[2024-10-16 05:03] VITALS: BMI 29.0
[2024-10-16 05:10] VITALS: BP 117/65; PULSE 61; RESP 14; TEMP 36.5; O2SAT 93
[2024-10-16] MEDS: rifAXIMin 550 MG Tablet PO ×2 (07:59→21:24)
[2024-10-16] MEDS: Finasteride 5 MG Tablet PO (07:59)
[2024-10-16] MEDS: Escitalopram Oxalate 20 MG Tablet PO (07:59)
[2024-10-16] MEDS: Zinc Sulfate 50 mg zinc (220 mg) ORAL capsule 100 MG PO (07:59)
[2024-10-16] MEDS: Midodrine HCl 5 MG Tablet 10 MG PO ×2 (07:59→17:21)
--- NOTE | 2024-10-16 08:01 | PCM.PN.HOSP ---
Reason for Visit Reason for Visit: Diagnoses Obesity, class 1 (10/14/24) Essential (primary) hypertension (10/14/24) Other ascites (10/14/24) Other malaise (10/14/24) Syncope and collapse (10/14/24) Contusion of scalp, initial encounter (10/14/24) Laceration without foreign body of right forearm, initial encounter (10/14/24) Adverse effect of unspecified drugs, medicaments and biological substances, initial encounter (10/14/24) Subjective Subjective Feeling more confused today. When he awoke this AM he was disoriented for an extended perior until he was able to get into the chair. Objective Data Objective Data Vital Signs: Vital Signs Temp Pulse Resp BP Pulse Ox O2 Del Method 36.5 C L 61 14 117/65 93 Room Air 10/16/24 05:10 10/16/24 05:10 10/16/24 05:10 10/16/24 05:10 10/16/24 05:10 10/16/24 05:16 Oxygen Delivery Method Room Air Weight: 81.5 kg Body Mass Index (BMI) 29.0 Intake & Output: Intake and Output for Last 24 Hours 10/14/24 10/15/24 10/16/24 23:59 23:59 23:59 Intake Total 0 / 0 1856.67 / 1856.67 423.33 / 423.33 Output Total 0 / 0 6750 / 6750 0 / 0 Balance 0 / 0 -4893.33 / -4893.33 423.33 / 423.33 Lab / Micro Data 10/15/24 05:34 10/15/24 05:34 Labs: Laboratory Results - last 24 hr 10/15/24 10:35: Fluid Source PARACENTESIS, Fluid Color YELLOW, Fluid Appearance CLOUDY, Fluid WBC 0.055, Fluid RBC 35, Fluid Tot Cell Count 0.064, Fld Polynuclear WBCs # 0.055, Fld Polynuclear WBCs % 36.4, Fluid Mononuclear WBCs 0.035, Fld Mononuclear WBCs % 63.6, Fluid Neutrophils 20, Fluid Lymphocytes 28, Fluid Monocytes 52, Fl Pathologist Comment May follow, Fluid Comment 2 SEE COMMENT 10/15/24 11:46: APTT 36.8 H 10/15/24 17:10: Ammonia 74.1 H 10/16/24 00:10: Urine Color Yellow, Urine Clarity Clear, Urine pH 6.0, Ur Specific Una 1.015, Urine Protein 15 H, Urine Glucose (UA) Normal, Urine Ketones Negative, Urine Occult Blood 150 H, Urine Nitrite Negative, Urine Bilirubin Negative, Urine Urobilinogen Normal, Ur Leukocyte Esterase Negative, Urine RBC 25-50 SEEN, Urine WBC 0 SEEN, Ur Squamous Epith Cells 0-5 SEEN, Urine Bacteria 0 SEEN, Urine Mucus 0 SEEN Micro: Microbiology 10/15/24 10:35 Fluid - Ascites Gram Stain - Final Radiography Diagnostic Testing: Radiology Impression Brain MRI 10/14/24 22:35 IMPRESSION: Motion artifact limits the evaluation. No acute infarct, mass effect or intracranial hemorrhage. Moderate global volume loss, atrophy. Reading Location: [facility] Carotid Duplex 10/14/24 22:35 Interpretation Summary Mild (<50%) stenosis right extracranial internal carotid. Severe (>70%) stenosis left extracranial internal carotid. Patent and antegrade vertebrals bilaterally. Ordering Physician: Jasvir Fatima Referring Physician: MD Leah Adam Performed By: Penny Arriaga, T Paracentesis Ultrasound 10/15/24 09:58 IMPRESSION: Uneventful ultrasound-guided paracentesis. Reading Location: [place] [address] Physical Exam Const alert and no apparent distress HEENT head/scalp atraumatic and moist oral mucous membranes Resp normal respiratory effort and no retractions Neuro Neuro Narrative: asterixis bilaterally. impaired saccades Psych affect normal Assessment & Plan Assessment/Plan (1) Syncope: PLAN: MRI shows moderate global atrophy. Ammonia elevated at 74. Nonorthostatic Etiologies could be an arrhythmia as patient has no recollection of the event though I am favoring him falling and having antecedent amnesia from a concussion. Patient has had these frequent falls at home that have been unwitnessed. Will continue to monitor on telemetry for now. (2) Hematoma of frontal scalp: PLAN: 2/2 fall. Supportive management (3) Debility: PLAN: This has been overall progressive. Patient's activity has been variable throughout the day and sometimes some of his symptoms can be more prominent particularly early in the morning. MRI of the brain is currently pending but I am concerned that patient may have some midbrain atrophy and with some of his symptoms I would be concerned about some neurodegenerative process, particularly progressive supranuclear palsy. Patient has been following, primarily backwards, he has impaired vertical saccades. Though this is not confirmatory by any means of PSP I did recommend to the patient and his family that he see a movement disorder specialist to further clarify this. They would prefer [facility] on as he has had other care doctor for other reasons. Patient did work with therapy and was able to walk 100 feet with 4 wheeled walker with standby assist. Though at that moment he may be good concerned by the other times when he is more tired that he would be more at risk for falls as I do not feel his falls are related with some undiagnosed arrhythmia. (4) Abdominal ascites: QUALIFIERS: Ascites type: other type Qualified Code(s): R18.8 - Other ascites PLAN: Had been on diuretics in the past but because of the kidney issues which his photovoltaic solar cell designer had taken him off. Meantime patient has just been getting scheduled ascites with albumin infusions based volume taken off. Patient underwent a ultrasound-guided paracentesis that removed 6.75 L of fluid. Pt received 50g of albumin (5) Hepatic encephalopathy: PLAN: Ammonia is 74 despite being on rifaximin for the past several weeks. He is confused with asterixis and I am concerned for potential worsening potential increased risk of falls. Therefore I feel it is warranted to start him on lactulose. Previously, the patient had been on lactulose but had stopped due to severe diarrhea that he was having. Advised starting him back on the lactulose to help with his encephalopathy and hopefully help with some of his other motor functions and that way we can observe him to see if we can regulate the lactulose to get to a ideal dosing that would provide him the benefits of improving his encephalopathy but also not causing voluminous diarrhea. PLAN: Plan Discussed with the patient's and daughter at bedside. Patient status will be changed from observation to admission. Tentative plan is for him to go to a senior care facility on the if he is medically stable. Charges/Coding Visit Charges Inpatient E&M: 11264 [facility] Hosp L2
[2024-10-16 08:49] LABS: Phosphorus 2.5 mg/dL (2.7-4.5)
--- NOTE | 2024-10-16 10:25 | CASEMGMT ---
SW was informed family was interested in [facility] Acute Rehab. Unfortunately they would be unable to take patient. Physician stated patient is doing a little worse today so he feels patient qualifies for inpatient status. JHONATHAN then met with patient's Elvia. Introduced self and role at [facility]. SW explained Rehab is unable to accept patient. JHONATHAN did provide Elvia with a list of intermediate facility providers including quality and resource use data and consistent with patient?s preferred geographic region, medical needs, and insurance network were provided via the [employer] Guide Link. SW explained they would just need to luis enrique their top 3-4 preferences and SW will check with the facilities. Elvia asked about [facility] TCU. SW did make a referral to [facility]. Await response. Silvia CARVAJAL
[2024-10-16] MEDS: Lactulose 20 GM/30 ML UDC PO ×2 (10:55→21:24)
[2024-10-16 11:00] VITALS: BP 107/60; PULSE 76; RESP 18; TEMP 36.6; O2SAT 95
--- NOTE | 2024-10-16 11:24 | CASEMGMT ---
Patient has partial acceptance to TCU. Won't know for sure until Saturday. SW spoke with family and let them know this information. Their next choice would be [facility]. SW to follow for d/c planning. Plan: d/c to TCU pending official acceptance. Bed available Saturday unless something opens up. Silvia Swartz TECHNICAL MARKETING ENGINEER COMMERCIAL PARTS PROFESSIONAL
--- NOTE | 2024-10-16 11:29 | CASEMGMT ---
RN CM NOTE: [facility] made aware [place]F [place]. Referral alan'marcelo. Amandeep JONESN RN CM
[2024-10-16 17:20] VITALS: BP 122/61; PULSE 63; RESP 18; TEMP 36.6; O2SAT 96
[2024-10-16 21:19] VITALS: BP 123/66; PULSE 56; RESP 18; TEMP 36.6; O2SAT 97
[2024-10-16] MEDS: Ensure Plus High Protein 120 ML LIQUID PO (21:23)
[2024-10-17 03:58] VITALS: BP 131/66; PULSE 55; RESP 18; TEMP 36.7; O2SAT 95
[2024-10-17 06:00] VITALS: BMI 28.9
--- NOTE | 2024-10-17 08:11 | PCM.PN.HOSP ---
Reason for Visit Reason for Visit: Diagnoses Obesity, class 1 (10/16/24) Essential (primary) hypertension (10/16/24) Hepatic encephalopathy (10/16/24) Other ascites (10/16/24) Other malaise (10/16/24) Syncope and collapse (10/16/24) Contusion of scalp, initial encounter (10/16/24) Laceration without foreign body of right forearm, initial encounter (10/16/24) Adverse effect of unspecified drugs, medicaments and biological substances, initial encounter (10/16/24) Subjective Subjective Feels ok. Non-toxic. Objective Data Objective Data Vital Signs: Vital Signs Temp Pulse Resp BP Pulse Ox O2 Del Method 36.7 C 55 L 18 131/66 H 95 Room Air 10/17/24 03:58 10/17/24 03:58 10/17/24 03:58 10/17/24 03:58 10/17/24 03:58 10/17/24 03:59 Oxygen Delivery Method Room Air Weight: 81.4 kg Body Mass Index (BMI) 28.9 Intake & Output: Intake and Output for Last 24 Hours 10/15/24 10/16/24 10/17/24 23:59 23:59 23:59 Intake Total 1856.67 / 1856.67 1023.33 / 1223.33 200 / 200 Output Total 6750 / 6750 0 / 0 Balance -4893.33 / -4893.33 1023.33 / 1223.33 200 / 200 Lab / Micro Data 10/15/24 05:34 10/15/24 05:34 Labs: Laboratory Results - last 24 hr 10/16/24 08:08: Phosphorus 2.5 L Micro: Microbiology 10/15/24 10:35 Fluid - Ascites Gram Stain - Final 10/15/24 10:35 Fluid - Ascites Body Fluid Culture - Preliminary No growth-Final to follow Radiography Diagnostic Testing: Radiology Impression Echocardiogram 10/14/24 22:35 Interpretation Summary The estimated ejection fraction is 60 %. Diastolic function is indeterminate. Mild mitral annular calcification. Ordering Physician: Jasvir Fatima Referring Physician: MD Leah Adam Performed By: Renee Agustin RCS Physical Exam Const alert and no apparent distress HEENT HEENT Narrative: right facial ecchymosis GI GI Narrative: distended, soft, non-tender. Assessment & Plan Assessment/Plan (1) Syncope: PLAN: MRI shows moderate global atrophy. Ammonia elevated at 74. Nonorthostatic Etiologies could be an arrhythmia as patient has no recollection of the event though I am favoring him falling and having antecedent amnesia from a concussion. Patient has had these frequent falls at home that have been unwitnessed. Will continue to monitor on telemetry for now. Doubt arrhythmogenic (2) Hematoma of frontal scalp: PLAN: 2/2 fall. Supportive management (3) Debility: PLAN: This has been overall progressive. Patient's activity has been variable throughout the day and sometimes some of his symptoms can be more prominent particularly early in the morning. MRI of the brain is currently pending but I am concerned that patient may have some midbrain atrophy and with some of his symptoms I would be concerned about some neurodegenerative process, particularly progressive supranuclear palsy. Patient has been following, primarily backwards, he has impaired vertical saccades. Though this is not confirmatory by any means of PSP I did recommend to the patient and his family that he see a movement disorder specialist to further clarify this. They would prefer [facility] on as he has had other care doctor for other reasons. Patient did work with therapy and was able to walk 100 feet with 4 wheeled walker with standby assist. Though at that moment he may be good concerned by the other times when he is more tired that he would be more at risk for falls as I do not feel his falls are related with some undiagnosed arrhythmia. (4) Abdominal ascites: QUALIFIERS: Ascites type: other type Qualified Code(s): R18.8 - Other ascites PLAN: Had been on diuretics in the past but because of the kidney issues which his conveyor maintenance mechanic had taken him off. Meantime patient has just been getting scheduled ascites with albumin infusions based volume taken off. Patient underwent a ultrasound-guided paracentesis that removed 6.75 L of fluid. Pt received 50g of albumin DW patient, will start on spironolactone and furosemide. Previously had KYAW. Given the high frequency of paracenteses, I think it reasonable to restart diuretics and observe. If indeed he has no tolerance of diuretics (which I doubt), then the next course of action would be to place a palliative Pleur-x catheter. The hope would be that his paracenteses could be spaced out more than every week. He is agreeable to this. (5) Hepatic encephalopathy: PLAN: Ammonia is 74 despite being on rifaximin for the past several weeks. He is confused with asterixis and I am concerned for potential worsening potential increased risk of falls. Therefore I feel it is warranted to start him on lactulose. Previously, the patient had been on lactulose but had stopped due to severe diarrhea that he was having. Advised starting him back on the lactulose to help with his encephalopathy and hopefully help with some of his other motor functions and that way we can observe him to see if we can regulate the lactulose to get to a ideal dosing that would provide him the benefits of improving his encephalopathy but also not causing voluminous diarrhea. PLAN: Plan Greater than 60 minutes of which greater than 50% of the time was counseling the patient at bedside about ascites, diuretics additionally discussing his debility, neurologic findings, concern that I have for him having some neurodegerative disease, such as PSP, neurology recommendations. Charges/Coding Visit Charges Inpatient E&M: 49177 Subs Hosp L3
[2024-10-17 08:20] VITALS: BP 118/58; PULSE 73; RESP 14; TEMP 36.8; O2SAT 96
[2024-10-17] MEDS: Midodrine HCl 5 MG Tablet 10 MG PO ×3 (08:23→16:36)
[2024-10-17] MEDS: Lactulose 20 GM/30 ML UDC PO ×2 (08:23→21:09)
[2024-10-17] MEDS: Finasteride 5 MG Tablet PO (08:24)
[2024-10-17] MEDS: Zinc Sulfate 50 mg zinc (220 mg) ORAL capsule 100 MG PO (08:24)
[2024-10-17] MEDS: rifAXIMin 550 MG Tablet PO ×2 (08:25→21:09)
[2024-10-17] MEDS: Escitalopram Oxalate 20 MG Tablet PO (08:25)
[2024-10-17 10:52] VITALS: O2SAT 93
[2024-10-17 11:59] VITALS: BP 111/68; PULSE 85
[2024-10-17] MEDS: Spironolactone 50 MG Tablet PO (12:01)
[2024-10-17] MEDS: Furosemide 20 MG Tablet PO (12:01)
[2024-10-17 16:33] VITALS: BP 119/65; PULSE 72; RESP 14; TEMP 36.4; O2SAT 97
[2024-10-17] MEDS: Ensure Plus High Protein 120 ML LIQUID PO (16:36)
[2024-10-17 21:05] VITALS: BP 117/53; PULSE 54; RESP 16; TEMP 36.7; O2SAT 97
[2024-10-18 04:00] VITALS: BP 131/58; PULSE 53; RESP 16; TEMP 37.1; O2SAT 96
[2024-10-18 06:00] VITALS: BMI 28.8
[2024-10-18 07:35] LABS: Anion Gap 10 (5-15); BUN 35 mg/dL (4-19); BUN/Creat Ratio 27.3 RATIO (10-20); Calcium,Total 8.8 mg/dL (7.6-11.0); Carbon Dioxide 17.3 mmol/L (21.0-32.0); Chloride 114 mmol/L (98-108); Creatinine, Serum 1.28 mg/dL (0.70-1.20); EST Glomerular Filtration Rate 55 (>60); Estimated Creatinine Clearance 42.23 ml/min (50-250); Glucose 109 mg/dL (70-99); Potassium 3.8 mmol/L (3.3-5.1); Sodium Level 141 mmol/L (133-145)
[2024-10-18 08:16] VITALS: BP 111/68; PULSE 78; RESP 16; TEMP 36.8; O2SAT 95
[2024-10-18] MEDS: Midodrine HCl 5 MG Tablet 10 MG PO ×3 (08:19→17:17)
--- NOTE | 2024-10-18 09:19 | PN.HOSP_ITS ---
Reason for Visit Reason for Visit: Diagnoses Obesity, class 1 (10/16/24) Essential (primary) hypertension (10/16/24) Hepatic encephalopathy (10/16/24) Other ascites (10/16/24) Other malaise (10/16/24) Syncope and collapse (10/16/24) Contusion of scalp, initial encounter (10/16/24) Laceration without foreign body of right forearm, initial encounter (10/16/24) Adverse effect of unspecified drugs, medicaments and biological substances, initial encounter (10/16/24) Subjective Subjective No new issues. Objective Data Objective Data Vital Signs: Vital Signs Temp Pulse Resp BP Pulse Ox O2 Del Method 36.8 C 78 16 111/68 95 Room Air 10/18/24 08:16 10/18/24 08:16 10/18/24 08:16 10/18/24 08:16 10/18/24 08:16 10/18/24 08:16 Oxygen Delivery Method Room Air Weight: 81.2 kg Body Mass Index (BMI) 28.8 Intake & Output: Intake and Output for Last 24 Hours 10/16/24 10/17/24 10/18/24 23:59 23:59 23:59 Intake Total 1023.33 / 1223.33 1100 / 1100 200 / 200 Output Total 0 / 0 Balance 1023.33 / 1223.33 1100 / 1100 200 / 200 Lab / Micro Data 10/15/24 05:34 10/18/24 04:50 Labs: Laboratory Results - last 24 hr 10/18/24 04:50: Sodium 141, Potassium 3.8, Chloride 114 H, Carbon Dioxide 17.3 L , Anion Gap 10, BUN 35 H, Creatinine 1.28 H, Estim Creat Clear Calc 42.23 L, Est GFR (MDRD) Non-Af 55 L, BUN/Creatinine Ratio 27.3 H, Glucose 109 H, Calcium 8.8 Micro: Microbiology 10/15/24 10:35 Fluid - Ascites Gram Stain - Final 10/15/24 10:35 Fluid - Ascites Body Fluid Culture - Preliminary No growth-Final to follow Physical Exam Const alert and no apparent distress HEENT HEENT Narrative: ecchymosis under right eye. Resp normal respiratory effort and no retractions GI GI Narrative: abdomen soft. distended. non-tender. Neuro Sensorium / Orientation: awake Assessment & Plan Assessment/Plan (1) Syncope: PLAN: MRI shows moderate global atrophy. Ammonia elevated at 74. Nonorthostatic Etiologies could be an arrhythmia as patient has no recollection of the event though I am favoring him falling and having antecedent amnesia from a concussion. Patient has had these frequent falls at home that have been unwitnessed. Will continue to monitor on telemetry for now. Doubt arrhythmogenic (2) Hematoma of frontal scalp: PLAN: 2/2 fall. Supportive management (3) Debility: PLAN: This has been overall progressive. Patient's activity has been variable throughout the day and sometimes some of his symptoms can be more prominent particularly early in the morning. MRI of the brain is currently pending but I am concerned that patient may have some midbrain atrophy and with some of his symptoms I would be concerned about some neurodegenerative process, particularly progressive supranuclear palsy. Patient has been following, primarily backwards, he has impaired vertical saccades. Though this is not confirmatory by any means of PSP I did recommend to the patient and his family that he see a movement disorder specialist to further clarify this. They would prefer [facility] on as he has had other care doctor for other reasons. Patient did work with therapy and was able to walk 100 feet with 4 wheeled walker with standby assist. Though at that moment he may be good concerned by the other times when he is more tired that he would be more at risk for falls as I do not feel his falls are related with some undiagnosed arrhythmia. (4) Abdominal ascites: QUALIFIERS: Ascites type: other type Qualified Code(s): R18.8 - Other ascites PLAN: Had been on diuretics in the past but because of the kidney issues which his real estate coordinator had taken him off. Meantime patient has just been getting scheduled ascites with albumin infusions based volume taken off. Patient underwent a ultrasound-guided paracentesis that removed 6.75 L of fluid. Pt received 50g of albumin DW patient, will start on spironolactone and furosemide. Previously had KYAW. Given the high frequency of paracenteses, I think it reasonable to restart diuretics and observe. If indeed he has no tolerance of diuretics (which I doubt), then the next course of action would be to place a palliative Pleur-x catheter. The hope would be that his paracenteses could be spaced out more than every week. He is agreeable to this. So far, tolerating the low-dose of spironolactone and furosemide. Ideally, these should be titrated upwards as his BP and creatinine allow. (5) Hepatic encephalopathy: PLAN: Ammonia is 74 despite being on rifaximin for the past several weeks. He is confused with asterixis and I am concerned for potential worsening potential increased risk of falls. Therefore I feel it is warranted to start him on lactulose. Previously, the patient had been on lactulose but had stopped due to severe diarrhea that he was having. Advised starting him back on the lactulose to help with his encephalopathy and hopefully help with some of his other motor functions and that way we can observe him to see if we can regulate the lactulose to get to a ideal dosing that would provide him the benefits of improving his encephalopathy but also not causing voluminous diarrhea. (6) Low bicarbonate: PLAN: 17.9 today, but was 11.9 on admission. Level went up without intervention. Unclear etiology. Will give oral NaCO3 and recheck in AM. PLAN: Plan DW patient's at bedside. Charges/Coding Visit Charges Inpatient E&M: 82964 Subs Hosp L2
[2024-10-18 11:13] VITALS: O2SAT 92
[2024-10-18] MEDS: Spironolactone 50 MG Tablet PO (11:14)
[2024-10-18] MEDS: Finasteride 5 MG Tablet PO (11:14)
[2024-10-18] MEDS: Furosemide 20 MG Tablet PO (11:14)
[2024-10-18] MEDS: Zinc Sulfate 50 mg zinc (220 mg) ORAL capsule 100 MG PO (11:15)
[2024-10-18] MEDS: rifAXIMin 550 MG Tablet PO ×2 (11:15→21:12)
[2024-10-18] MEDS: Lactulose 20 GM/30 ML UDC PO ×2 (11:15→21:12)
[2024-10-18] MEDS: Escitalopram Oxalate 20 MG Tablet PO (11:15)
[2024-10-18] MEDS: Sodium Bicarbonate 650 MG Tablet PO ×4 (11:54→21:12)
[2024-10-18 14:34] VITALS: BP 118/65; PULSE 74; RESP 14; TEMP 36.6; O2SAT 97
[2024-10-18] MEDS: Ensure Plus High Protein 120 ML LIQUID PO (21:13)
[2024-10-18 21:15] VITALS: BP 113/72; PULSE 60; RESP 18; TEMP 36.4; O2SAT 96
[2024-10-19] VITALS (9 sets, daily range): BP systolic 108–122; BP diastolic 57–72; PULSE 45–82; RESP 15–18; TEMP 36.4–36.7; O2SAT 94–98
[2024-10-19 07:02] LABS: Absolute Lymphocyte Count 0.54 X10^3/uL (0.83-4.51); Absolute Neutrophil Count 4.1 X10^3/uL (2.0-7.7); Basophil# 0.04 X10^3/uL; Basophil% 0.7 % (0-1); Eosinophil# 0.21 X10^3/uL; Eosinophils% 3.8 % (0-5); Hemoglobin 10.9 g/dL (13.0-16.5); Lymphocyte # 0.54 X10^3/ul (0.83-4.51); Lymphocyte % 9.9 % (19-41); Mean Corp Hgb Conc 34.1 g/dL (32-36); Mean Corpuscular Hgb 34.8 pg (27.0-32.0); Mean Corpuscular Volume 102.2 fL (80-94); Mean Platelet Vol. 9.4 fl (6.2-12.0); Monocyte# 0.59 X10^3/uL; Monocyte% 10.8 % (0-10); NRBC Flagged by Analyzer 0 % (0-5); Neutrophil # 4.06 X10^3/uL (2.7-7.7); Neutrophil % 74.3 % (47-70); POSITIVE COUNT YES; POSITIVE DIFFERENTIAL YES; Platelet Count 72 K/mm3 (150-450); RBC Distribution Width CV 14.1 % (11.6-14.6); RBC Distribution Width SD 52.7 fl (35.1-43.9); Red Blood Count 3.13 M/mm3 (4.6-6.2); White Blood Count 5.5 K/mm3 (4.4-11.0)
[2024-10-19 07:47] LABS: Anion Gap 10 (5-15); BUN 31 mg/dL (4-19); Calcium,Total 8.5 mg/dL (7.6-11.0); Carbon Dioxide 17.8 mmol/L (21.0-32.0); Chloride 112 mmol/L (98-108); Creatinine, Serum 1.35 mg/dL (0.70-1.20); EST Glomerular Filtration Rate 51 (>60); Estimated Creatinine Clearance 40.04 ml/min (50-250); Glucose 109 mg/dL (70-99); Potassium 3.9 mmol/L (3.3-5.1); Sodium Level 139 mmol/L (133-145)
[2024-10-19] MEDS: Midodrine HCl 5 MG Tablet 10 MG PO ×3 (08:49→16:49)
[2024-10-19] MEDS: Ensure Plus High Protein 120 ML LIQUID PO ×3 (09:55→17:23)
[2024-10-19] MEDS: Furosemide 20 MG Tablet PO (09:55)
[2024-10-19] MEDS: Lactulose 20 GM/30 ML UDC PO ×2 (09:55→21:07)
[2024-10-19] MEDS: Escitalopram Oxalate 20 MG Tablet PO (09:55)
[2024-10-19] MEDS: Spironolactone 50 MG Tablet PO (09:55)
[2024-10-19] MEDS: Zinc Sulfate 50 mg zinc (220 mg) ORAL capsule 100 MG PO (09:56)
[2024-10-19] MEDS: rifAXIMin 550 MG Tablet PO ×2 (09:56→21:07)
[2024-10-19] MEDS: Finasteride 5 MG Tablet PO (09:56)
--- NOTE | 2024-10-19 12:05 | PCM.PN.HOSP ---
Reason for Visit Reason for Visit: Diagnoses Obesity, class 1 (10/16/24) Other disorders of electrolyte and fluid balance, not elsewhere classified (10/16/24) Essential (primary) hypertension (10/16/24) Hepatic encephalopathy (10/16/24) Other ascites (10/16/24) Other malaise (10/16/24) Syncope and collapse (10/16/24) Contusion of scalp, initial encounter (10/16/24) Laceration without foreign body of right forearm, initial encounter (10/16/24) Adverse effect of unspecified drugs, medicaments and biological substances, initial encounter (10/16/24) Objective Data Objective Data Vital Signs: Vital Signs Temp Pulse Resp BP Pulse Ox O2 Del Method 97.9 F 73 15 114/65 98 Room Air 10/19/24 12:03 10/19/24 12:03 10/19/24 12:03 10/19/24 12:03 10/19/24 12:03 10/19/24 12:03 Oxygen Delivery Method Room Air Weight: 179 lb 0.246 oz Body Mass Index (BMI) 28.8 Intake & Output: Intake and Output for Last 24 Hours 10/17/24 10/18/24 10/19/24 23:59 23:59 23:59 Intake Total 1100 / 1100 550 / 550 Balance 1100 / 1100 550 / 550 Lab / Micro Data 10/19/24 06:39 10/19/24 06:39 Labs: Laboratory Results - last 24 hr 10/19/24 06:39: WBC 5.5, RBC 3.13 L, Hgb 10.9 L, Hct 32.0 L, MCV 102.2 H, MCH 34.8 H, MCHC 34.1, RDW Std Deviation 52.7 H, RDW Coeff of Randi 14.1, Plt Count 72 L, MPV 9.4, Immature Gran % (Auto) 0.500, Neut % (Auto) 74.3 H, Lymph % (Auto) 9.9 L, Pacific % (Auto) 10.8 H, Eos % (Auto) 3.8, Baso % (Auto) 0.7, Absolute Neuts (auto) 4.1, Absolute Lymphs (auto) 0.54 L, Nucleated RBC % 0, Sodium 139, Potassium 3.9, Chloride 112 H, Carbon Dioxide 17.8 L, Anion Gap 10, BUN 31 H, Creatinine 1.35 H, Estim Creat Clear Calc 40.04 L, Est GFR (MDRD) Non-Af 51 L, BUN/Creatinine Ratio 23.0 H, Glucose 109 H, Calcium 8.5 Micro: Microbiology 10/15/24 10:35 Fluid - Ascites Gram Stain - Final 10/15/24 10:35 Fluid - Ascites Body Fluid Culture - Final Culture exhibits no growth. 10/15/24 10:35 Fluid - Ascites Anaerobic Culture - Preliminary No growth in 48 hours. Physical Exam Narrative Seen and examined. Patient has bruise over her face and base of nose and also on extremities. Patient has been falling frequently though he does not remember well. He also had some confusion with history of cirrhosis and weekly paracentesis. Complain of getting off balance, dizzy and recurrent fall. Physical exam General: Alert, Oriented x3, Cooperative BMI 28.9 kg/m? HEENT: Atraumatic, PERRLA, EOMI, Normocephalic Oral: No Gingival or Mucosal Lesions/ Ulcerations Neck: Supple, No JVD, Negative Carotid Bruits Chest wall/Lungs: Air entry diminished in bilateral lung bases. No crepitation/rhonchi Cardiovascular: Regular rate, Regular Rhythm, Normal S1, Normal S2, No M/G/R Abdomen: Bowel Sounds Present, Soft, Non Tender, Non-Distended : No dysuria. No renal angle tenderness. No suprapubic tenderness. Extremities: No edema, Capillary Refill Less than 3 Seconds Skin: Multiple bruises and ecchymosis over face and extremity. Musculoskeletal: ROM restricted, degenerative arthritis of knees. Muscle strength 4+/5 at knees and hip joints Neurological: Cranial nerves II-XII grossly intact, DTR 2+/4. No acute focal neurological deficit. Psych/Mental Status: Flat affect Assessment & Plan Assessment/Plan (1) Syncope: PLAN: MRI shows moderate global atrophy. Ammonia elevated at 74. Nonorthostatic Etiologies could be an arrhythmia as patient has no recollection of the event though I am favoring him falling and having antecedent amnesia from a concussion. Patient has had these frequent falls at home that have been unwitnessed. Will continue to monitor on telemetry for now. Doubt arrhythmogenic (2) Hematoma of frontal scalp: PLAN: 2/2 fall. Supportive management (3) Debility: PLAN: Patient is states that he has been falling recently and said about twice in last 1 week. He denies any fall before that he has been falling and does not remember well. MRI brain shows no acute infarct mass effect or intracranial hemorrhage. Moderate global volume loss and atrophy. PT and OT. Advised to follow-up with PCP to refer to [facility] for concern of movement disorder. Patient did work with therapy and was able to walk 100 feet with 4 wheeled walker with standby assist. . (4) Abdominal ascites: QUALIFIERS: Ascites type: other type Qualified Code(s): R18.8 - Other ascites PLAN: Had been on diuretics in the past but because of the kidney issues which his tobacco conditioner had taken him off. Meantime patient has just been getting scheduled ascites with albumin infusions based volume taken off. Patient underwent a ultrasound-guided paracentesis that removed 6.75 L of fluid. Pt received 50g of albumin Started on spironolactone and furosemide. Frequent paracentesis high risk for KYAW/progression of CKD (5) Hepatic encephalopathy: PLAN: Continue lactulose and Zithromax. (6) Low bicarbonate: PLAN: 17.9 today, but was 11.9 on admission. Bicarb is 17.8. PLAN: Plan Charges/Coding Visit Charges Inpatient E&M: 43569 Subs Hosp L2
--- NOTE | 2024-10-19 12:16 | CASEMGMT ---
JHONATHAN stopped by patient's room and spoke with patient and his . JHONATHAN let both of them know that [facility] can take patient. This will likely take place tomorrow evening as we have to wait on the d/c from TCU. Patient's thanked JHONATHAN and said she will notify their daughter. Plan: d/c to [facility] Saturday Silvia CARVAJAL
--- NOTE | 2024-10-19 14:26 | EKG12_ITS ---
Test Reason : CP Blood Pressure : */* mmHG Vent. Rate : 42 BPM Atrial Rate : 42 BPM P-R Int : 206 ms QRS Dur : 80 ms QT Int : 494 ms P-R-T Axes : 56 -19 -32 degrees QTcB Int : 412 ms Marked sinus bradycardia with Premature supraventricular complexes Abnormal ECG When compared with ECG of 14-Oct-2024 15:43, Premature supraventricular complexes are now Present Vent. rate has decreased by 30 bpm QT has shortened Confirmed by SHAWNA SOUTH, CARSON ([id number]), editorial project manager JINNY MENDOZA ([id number]) on 10/20/2024 8:29:15 AM Referred By: AZRA Confirmed By: CARSON MATOS MD
[2024-10-19 16:00] LABS: Troponin T High Sensitivity 29 ng/L (<=22)
[2024-10-20 03:30] VITALS: BP 119/60; PULSE 52; RESP 16; TEMP 36.6; O2SAT 95
[2024-10-20 05:16] VITALS: BMI 28.8
[2024-10-20 06:12] LABS: Absolute Neutrophil Count 4.7 X10^3/uL (2.0-7.7); Basophil# 0.03 X10^3/uL; Basophil% 0.5 % (0-1); Eosinophil# 0.23 X10^3/uL; Eosinophils% 3.7 % (0-5); Hematocrit 31.7 % (40-54); Hemoglobin 10.9 g/dL (13.0-16.5); Lymphocyte % 9.6 % (19-41); Mean Corp Hgb Conc 34.4 g/dL (32-36); Mean Corpuscular Volume 101.9 fL (80-94); Mean Platelet Vol. 9.1 fl (6.2-12.0); Monocyte# 0.64 X10^3/uL; Monocyte% 10.2 % (0-10); NRBC Flagged by Analyzer 0 % (0-5); Neutrophil # 4.72 X10^3/uL (2.7-7.7); Neutrophil % 75.5 % (47-70); POSITIVE COUNT YES; POSITIVE DIFFERENTIAL YES; Platelet Count 70 K/mm3 (150-450); RBC Distribution Width CV 14.1 % (11.6-14.6); RBC Distribution Width SD 52.5 fl (35.1-43.9); Red Blood Count 3.11 M/mm3 (4.6-6.2); White Blood Count 6.3 K/mm3 (4.4-11.0)
[2024-10-20 06:25] LABS: Anion Gap 11 (5-15); BUN 32 mg/dL (4-19); BUN/Creat Ratio 25.7 RATIO (10-20); Calcium,Total 8.5 mg/dL (7.6-11.0); Carbon Dioxide 16.8 mmol/L (21.0-32.0); Chloride 111 mmol/L (98-108); Creatinine, Serum 1.24 mg/dL (0.70-1.20); EST Glomerular Filtration Rate 57 (>60); Estimated Creatinine Clearance 43.64 ml/min (50-250); Glucose 116 mg/dL (70-99); Potassium 4.3 mmol/L (3.3-5.1); Sodium Level 138 mmol/L (133-145)
[2024-10-20 07:51] VITALS: PULSE 51
--- NOTE | 2024-10-20 08:07 | DS.PCM_ITS ---
Providers Date of Admission: 10/16/24 Date of Discharge: 10/20/24 Primary Care Physician: Dr. Adam Lynn MD Consultations 10/15/24 00:11 Consult: Onc/Wound/target developer Routine Comment: Reason For Visit: SYNCOPE Diagnosis Discharge Diagnosis (1) Syncope: Status: Acute Code(s): R55 - Syncope and collapse Plan: I think patient may hide follow-up because of confusion and encephalopathy, hepatic encephalopathy. MRI shows moderate global atrophy. Ammonia elevated at 74. Nonorthostatic Etiologies could be an arrhythmia as patient has no recollection of the event though I am favoring him falling and having antecedent amnesia from a concussion. Patient has had these frequent falls at home that have been unwitnessed. Will continue to monitor on telemetry for now. Doubt arrhythmogenic (2) Hematoma of frontal scalp: Status: Acute Code(s): S00.03XA - Contusion of scalp, initial encounter Plan: 2/2 fall. Supportive management (3) Debility: Status: Acute Code(s): R53.81 - Other malaise Plan: Patient is states that he has been falling recently and said about twice in last 1 week. He denies any fall before that he has been falling and does not remember well. MRI brain shows no acute infarct mass effect or intracranial hemorrhage. Moderate global volume loss and atrophy. PT and OT. Advised to follow-up with PCP to refer to [facility] for concern of movement disorder. Patient did work with therapy and was able to walk 100 feet with 4 wheeled walker with standby assist. (4) Abdominal ascites: Status: Acute Code(s): R18.8 - Other ascites Qualifiers: Ascites type: other type Qualified Code(s): R18.8 - Other ascites Plan: Had been on diuretics in the past but because of the kidney issues which his project management professional had taken him off. Meantime patient has just been getting scheduled ascites with albumin infusions based volume taken off. Patient underwent a ultrasound-guided paracentesis that removed 6.75 L of fluid. Pt received 50g of albumin Started on spironolactone and furosemide. Frequent paracentesis high risk for KYAW/progression of CKD Prescription given for furosemide 20 mg daily and spironolactone 50 mg daily. Continue lactulose and Xifaxan. Follow-up in [place] [facility] in 2 weeks (5) Hepatic encephalopathy: Status: Acute Code(s): K76.82 - Hepatic encephalopathy Plan: Continue lactulose and Zithromax. (6) Low bicarbonate: Status: Acute Code(s): E87.8 - Other disorders of electrolyte and fluid balance, not elsewhere classified Plan: 17.9 today, but was 11.9 on admission. Bicarb is 17.8. Plan Discharge medication reconciliation done. Discharge follow-up instructions completed. Discharge process discussed with the patient and all questions were answered to patient's satisfaction. Follow with PCP in 1 to 2 weeks Total time spent, exact 35 minutes on discharge meds reconciliation, examination, coordination of care with nurses and ancillary staff, review of imaging and blood test and discussion with the patient on follow-up instructions. Medications at Discharge Home Medications finasteride 5 mg tablet 5 mg PO DAILY BPH 03/09/21 ropinirole 0.25 mg tablet 0.25 mg PO PRN PRN restless legs 03/09/21 tamsulosin 0.4 mg capsule 0.4 mg PO BID BPH 03/09/21 nitroglycerin 0.4 mg sublingual tablet 0.4 mg sublingual Q5M 08/01/23 midodrine 5 mg tablet 5 mg PO TIDCM 30 days #90 tabs 08/05/23 taurine 1,000 mg capsule 1,000 mg PO Q6H 09/30/24 rifaximin 550 mg tablet (Xifaxan) 550 mg PO BID 10/08/24 zinc sulfate 50 mg zinc (220 mg) capsule (Orazinc) 100 mg PO DAILY 10/14/24 escitalopram oxalate 20 mg tablet 10 mg (1/2 x 20 mg) PO DAILY 30 days #0 tabs 10/20/24 furosemide 20 mg tablet 20 mg PO DAILY 30 days #30 tabs 10/20/24 lactulose 10 gram/15 mL oral solution 10 g (15 mL) PO TID 1 month #3,785 mL 10/20/24 spironolactone 50 mg tablet 50 mg PO DAILY 30 days #30 tabs 10/20/24 Physical Exam Narrative Seen and examined. Patient is doing well. Follows simple, and eating his breakfast independently. Patient was admitted with bruise over her face and base of nose and also on extremities. Patient has been falling frequently though he does not remember well. He also had some confusion with history of cirrhosis and weekly paracentesis. Complain of getting off balance, dizzy and recurrent fall. Physical exam General: Alert, Oriented x3, Cooperative BMI 28.9 kg/m? HEENT: Atraumatic, PERRLA, EOMI, Normocephalic Oral: No Gingival or Mucosal Lesions/ Ulcerations Neck: Supple, No JVD, Negative Carotid Bruits Chest wall/Lungs: Air entry diminished in bilateral lung bases. No crepitation/rhonchi Cardiovascular: Regular rate, Regular Rhythm, Normal S1, Normal S2, No M/G/R Abdomen: Bowel Sounds Present, Soft, Non Tender, Non-Distended : No dysuria. No renal angle tenderness. No suprapubic tenderness. Extremities: No edema, Capillary Refill Less than 3 Seconds Skin: Multiple bruises and ecchymosis over face and upper extremity. Musculoskeletal: ROM restricted, degenerative arthritis of knees. Muscle strength 4+/5 at knees and hip joints Neurological: Cranial nerves II-XII grossly intact, DTR 2+/4. No acute focal neurological deficit. Psych/Mental Status: Flat affect. Weight / BMI Weight Weight: 179 lb 7.3 oz Body Mass Index (BMI) 28.8 ABG / Lab / Microbiology Data 10/20/24 05:19 10/20/24 05:19 Laboratory: Laboratory Results - last 24 hr 10/19/24 15:15: Troponin T High Sens 29 H D 10/20/24 05:19: WBC 6.3, RBC 3.11 L, Hgb 10.9 L, Hct 31.7 L, MCV 101.9 H, MCH 35.0 H, MCHC 34.4, RDW Std Deviation 52.5 H, RDW Coeff of Randi 14.1, Plt Count 70 L, MPV 9.1, Immature Gran % (Auto) 0.500, Neut % (Auto) 75.5 H, Lymph % (Auto) 9.6 L, Ida % (Auto) 10.2 H, Eos % (Auto) 3.7, Baso % (Auto) 0.5, Absolute Neuts (auto) 4.7, Absolute Lymphs (auto) 0.60 L, Nucleated RBC % 0, Sodium 138, Potassium 4.3, Chloride 111 H, Carbon Dioxide 16.8 L, Anion Gap 11, BUN 32 H, C reatinine 1.24 H, Estim Creat Clear Calc 43.64 L, Est GFR (MDRD) Non-Af 57 L, B UN/Creatinine Ratio 25.7 H, Glucose 116 H, Calcium 8.5 Microbiology: Microbiology 10/15/24 10:35 Fluid - Ascites Gram Stain - Final 10/15/24 10:35 Fluid - Ascites Body Fluid Culture - Final Culture exhibits no growth. 10/15/24 10:35 Fluid - Ascites Anaerobic Culture - Final No growth in 5 days. D/C Instructions DC O2, CPAP, BIPAP Needs Home O2 Discharge instructions: No Meaningful Use Info Meaningful Use Meaningful Use Diagnoses (Choose all that apply): None applicable Ischemic Stroke Statin Dosing Therapy Reference: STATIN DOSE THERAPY REFERENCE: * Patients > 75 years receive moderate or high dose statin therapy. * Patients 75 years or YOUNGER should receive HIGH intensity statin dose unless contraindicated. You will be required to document reason for non-treatment if statin daily dose does not meet guidelines. HIGH DOSE STATIN THERAPY DAILY Atorvastatin > than or = to 40 mg Rosuvastatin > than or = to 20 mg Amlodipine + Atorvastatin > than or = to 2.5/40 mg Ezetimibe + Simvastatin 10/80 mg Simvastatin 80mg Discharge Plan Admission Admit Date/Time: 10/16/24 09:58 Primary Reason for Your Visit: Debility, syncope, dementia. Attending Provider: Srikanth Jonhson Primary Care Provider: Adam Lynn Consulting Providers: Jasvir Fatima; Augustin Harrison Discharge Orders/Prescriptions Prescriptions: New furosemide 20 mg Tablet 20 mg PO DAILY 30 Days Qty: 30 1RF lactulose 10 gram/15 mL Solution 10 g PO TID 30 Days Qty: 3785 2RF spironolactone 50 mg Tablet 50 mg PO DAILY 30 Days Qty: 30 2RF Rx Instructions: Hold for serum potassium more than 5.0 Continued tamsulosin 0.4 mg Capsule 0.4 mg PO BID ropinirole 0.25 mg Tablet 0.25 mg PO PRN PRN (Reason: restless legs) finasteride 5 mg Tablet 5 mg PO DAILY nitroglycerin 0.4 mg tablet, sublingual 0.4 mg sublingual Q5M Rx Instructions: do not exceed 3 doses per episode midodrine 5 mg Tablet 5 mg PO TIDCM 30 Days Qty: 90 0RF zinc sulfate [Orazinc] 50 mg zinc (220 mg) capsule 100 mg PO DAILY taurine 1,000 mg capsule 1,000 mg PO Q6H Xifaxan 550 mg tablet 550 mg PO BID Changed escitalopram oxalate 20 mg tablet 10 mg PO DAILY 30 Days Qty: 0 0RF Referrals / Follow Up: Adam Lynn MD [Primary Care Provider] - Chandrika Cross PA [Med Staff - Adv Practice Prof] - Within 2 Weeks Disposition Disposition (needs filled in before D/C Order can be placed): Residential Facility Charges/Coding Visit Charges Inpatient E&M: 92605 Disch Hosp >30min
--- NOTE | 2024-10-20 08:07 | PCM.TXEXTCAR ---
Diet Diet Order/Speech Therapy: 10/15/24 17:02 Diet: Regular - No Added Salt Food consistency:: Regular Liquid Consistency:: Regular/Thin DC O2, CPAP, BIPAP needs Home O2 Discharge instructions: No Wound(s) Right forearm: Wound Type: Skin Tear Right wrist: Wound Type: Skin Tear Dressing Change: Adaptic Right hand: Wound Type: Skin Tear Dressing Change: Adaptic Bridge of nose: Wound Type: Abrasion Above right eyebrow: Wound Type: Abrasion Right LQ: Wound Type: Puncture Problem/Diagnosis (1) Syncope: Status: Acute Code(s): R55 - Syncope and collapse Plan: MRI shows moderate global atrophy. Ammonia elevated at 74. Nonorthostatic Etiologies could be an arrhythmia as patient has no recollection of the event though I am favoring him falling and having antecedent amnesia from a concussion. Patient has had these frequent falls at home that have been unwitnessed. Will continue to monitor on telemetry for now. Doubt arrhythmogenic (2) Hematoma of frontal scalp: Status: Acute Code(s): S00.03XA - Contusion of scalp, initial encounter Plan: 2/2 fall. Supportive management (3) Debility: Status: Acute Code(s): R53.81 - Other malaise Plan: Patient is states that he has been falling recently and said about twice in last 1 week. He denies any fall before that he has been falling and does not remember well. MRI brain shows no acute infarct mass effect or intracranial hemorrhage. Moderate global volume loss and atrophy. PT and OT. Advised to follow-up with PCP to refer to [facility] for concern of movement disorder. Patient did work with therapy and was able to walk 100 feet with 4 wheeled walker with standby assist. . (4) Abdominal ascites: Status: Acute Code(s): R18.8 - Other ascites Plan: Had been on diuretics in the past but because of the kidney issues which his pulmonary disease specialist had taken him off. Meantime patient has just been getting scheduled ascites with albumin infusions based volume taken off. Patient underwent a ultrasound-guided paracentesis that removed 6.75 L of fluid. Pt received 50g of albumin Started on spironolactone and furosemide. Frequent paracentesis high risk for KYAW/progression of CKD (5) Hepatic encephalopathy: Status: Acute Code(s): K76.82 - Hepatic encephalopathy Plan: Continue lactulose and Zithromax. (6) Low bicarbonate: Status: Acute Code(s): E87.8 - Other disorders of electrolyte and fluid balance, not elsewhere classified Plan: 17.9 today, but was 11.9 on admission. Bicarb is 17.8. Plan Allergies/Procedures Done in Hospital Allergies amoxicillin (From Augmentin) Allergy (Verified 10/14/24 15:10) Other clavulanic acid (From Augmentin) Allergy (Verified 10/14/24 15:10) Other lisinopril Adverse Reaction (Verified 10/14/24 15:10) Other COUGH Type of Care/Length of Stay Estimated LOS: Convalescent Care Less Than 30 days Type of Care Needed: Skilled Rehab Potential: Good Prognosis: Good Additional Orders/Day of Discharge Day of Discharge: 10/20/24 Dietary and Speech Recommendations Dietitian Recommendations/Changes: Continue regular, no added salt diet and 120ml EPHP with medass to 4x daily. Will monitor weight trends. Discharge Plan Admission Admit Date/Time: 10/16/24 09:58 Primary Reason for Your Visit: Debility, syncope, dementia. Attending Provider: Srikanth Johnson Primary Care Provider: Adam Lynn Consulting Providers: Jasvir Fatiam; Augustin Harrison Discharge Orders/Prescriptions Prescriptions: New furosemide 20 mg Tablet 20 mg PO DAILY 30 Days Qty: 30 1RF lactulose 10 gram/15 mL Solution 10 g PO TID 30 Days Qty: 3785 2RF spironolactone 50 mg Tablet 50 mg PO DAILY 30 Days Qty: 30 2RF Rx Instructions: Hold for serum potassium more than 5.0 Continued tamsulosin 0.4 mg Capsule 0.4 mg PO BID ropinirole 0.25 mg Tablet 0.25 mg PO PRN PRN (Reason: restless legs) finasteride 5 mg Tablet 5 mg PO DAILY nitroglycerin 0.4 mg tablet, sublingual 0.4 mg sublingual Q5M Rx Instructions: do not exceed 3 doses per episode midodrine 5 mg Tablet 5 mg PO TIDCM 30 Days Qty: 90 0RF zinc sulfate [Orazinc] 50 mg zinc (220 mg) capsule 100 mg PO DAILY taurine 1,000 mg capsule 1,000 mg PO Q6H Xifaxan 550 mg tablet 550 mg PO BID Changed escitalopram oxalate 20 mg tablet 10 mg PO DAILY 30 Days Qty: 0 0RF Referrals / Follow Up: Adam Lynn MD [Primary Care Provider] - Chandrika Cross PA [Med Staff - Adv Practice Prof] - Within 2 Weeks Disposition Disposition (needs filled in before D/C Order can be placed): [facility] (4) Abdominal ascites Qualifiers: Ascites type: other type Qualified Code(s): R18.8 - Other ascites
[2024-10-20 08:34] VITALS: BP 124/75; PULSE 87; RESP 18; TEMP 36.5; O2SAT 97
[2024-10-20] MEDS: Midodrine HCl 5 MG Tablet 10 MG PO ×2 (08:35→12:20)
[2024-10-20] MEDS: Ensure Plus High Protein 120 ML LIQUID PO (10:14)
[2024-10-20] MEDS: rifAXIMin 550 MG Tablet PO (10:14)
[2024-10-20] MEDS: Furosemide 20 MG Tablet PO (10:15)
[2024-10-20] MEDS: Spironolactone 50 MG Tablet PO (10:15)
[2024-10-20] MEDS: Zinc Sulfate 50 mg zinc (220 mg) ORAL capsule 100 MG PO (10:15)
[2024-10-20] MEDS: Lactulose 20 GM/30 ML UDC PO (10:15)
[2024-10-20] MEDS: Escitalopram Oxalate 20 MG Tablet PO (10:15)
[2024-10-20] MEDS: Finasteride 5 MG Tablet PO (10:16)
[2024-10-20 11:17] VITALS: PULSE 95
[2024-10-20 12:18] VITALS: BP 122/69; PULSE 54; RESP 16; TEMP 36.4; O2SAT 97
--- NOTE | 2024-10-20 12:44 | CASEMGMT ---
Patient is ready for discharge to [facility]. Plan: d/c to [facility] under skilled level of care. Silvia CARVAJAL
--- NOTE | 2024-10-20 13:42 | PHA.DC.MR.R ---
Pharmacy [facility] Med Reconciliation Pharmacy Service has performed discharge medication reconciliation for this patient. The patient's discharge medication list was reviewed for discrepancies and discrepancies were resolved. Medications at Discharge Home Medications finasteride 5 mg tablet 5 mg PO DAILY BPH 03/09/21 ropinirole 0.25 mg tablet 0.25 mg PO PRN PRN restless legs 03/09/21 tamsulosin 0.4 mg capsule 0.4 mg PO BID BPH 03/09/21 nitroglycerin 0.4 mg sublingual tablet 0.4 mg sublingual Q5M 08/01/23 midodrine 5 mg tablet 5 mg PO TIDCM 30 days #90 tabs 08/05/23 taurine 1,000 mg capsule 1,000 mg PO Q6H 09/30/24 rifaximin 550 mg tablet (Xifaxan) 550 mg PO BID 10/08/24 zinc sulfate 50 mg zinc (220 mg) capsule (Orazinc) 100 mg PO DAILY 10/14/24 escitalopram oxalate 20 mg tablet 10 mg (1/2 x 20 mg) PO DAILY 30 days #0 tabs 10/20/24 furosemide 20 mg tablet 20 mg PO DAILY 30 days #30 tabs 10/20/24 lactulose 10 gram/15 mL oral solution 10 g (15 mL) PO TID 1 month #3,785 mL 10/20/24 spironolactone 50 mg tablet 50 mg PO DAILY 30 days #30 tabs 10/20/24
--- NOTE | 2024-10-20 13:51 | WOUNDNOTE ---
wound photo: right lateral hand
--- NOTE | 2024-10-20 14:25 | NURSING ---
REPORT CALLED TO TCU-
[2024-11-02 11:54] LABS: Pathologist Comment/Body Fluid Reviewed
== END 2024-10-20 14:21 | disposition skilled nursing facility (03) | DRG 312 ==
LOC: ED 20:49 → PCU 22:10
PROVIDERS: Anesthesiology; Admitting Provider Internal Medicine; Emergency Provider Emergency Medicine; PCP Family Medicine; Visit Provider Internal Medicine
DX: I95.1 Orthostatic hypotension (principal); R18.8 Other ascites; K76.6 Portal hypertension; K76.82 Hepatic encephalopathy; D69.6 Thrombocytopenia, unspecified; E86.9 Volume depletion, unspecified; D64.9 Anemia, unspecified; I12.9 Hypertensive chronic kidney disease with stage 1 through stage 4 chronic kidney disease, or unspecified chronic kidney disease; N18.9 Chronic kidney disease, unspecified; I77.810 Thoracic aortic ectasia; E66.9 Obesity, unspecified; S06.0X0A Concussion without loss of consciousness, initial encounter; S00.03XA Contusion of scalp, initial encounter; K74.60 Unspecified cirrhosis of liver; E78.00 Pure hypercholesterolemia, unspecified; M19.90 Unspecified osteoarthritis, unspecified site; S51.801A Unspecified open wound of right forearm, initial encounter; I49.9 Cardiac arrhythmia, unspecified; E80.6 Other disorders of bilirubin metabolism; W18.30XA Fall on same level, unspecified, initial encounter; I25.10 Atherosclerotic heart disease of native coronary artery without angina pectoris; I25.84 Coronary atherosclerosis due to calcified coronary lesion; M19.09 Primary osteoarthritis, other specified site; E87.8 Other disorders of electrolyte and fluid balance, not elsewhere classified; R41.3 Other amnesia; Z68.31 Body mass index [BMI] 31.0-31.9, adult; R53.81 Other malaise; Z86.16 Personal history of COVID-19; Z87.891 Personal history of nicotine dependence; Y92.010 Kitchen of single-family (private) house as the place of occurrence of the external cause; N40.0 Benign prostatic hyperplasia without lower urinary tract symptoms; Z88.1 Allergy status to other antibiotic agents; Z88.8 Allergy status to other drugs, medicaments and biological substances; Z79.899 Other long term (current) drug therapy; Z98.890 Other specified postprocedural states; D35.02 Benign neoplasm of left adrenal gland; Z75.1 Person awaiting admission to adequate facility elsewhere; Z91.81 History of falling
CPT/HCPCS: 36415; 49083; 70450; 70551; 71250; 72125; 72131; 73080; 73090; 73502; 74176; 80048; 80053; 80061; 81001; 82140; 82533; 82607; 82746; 83735; 84100; 84443; 84484; 85025; 85610; 85730; 87070; 87075; 87205; 88108; 88305; 88313; 89050; 93005; 93306; 93880; 94668; 97110; 97116; 97162; 97166; 97530; 97535; 97802; 97803; 99285; P9047; A4216

== ENCOUNTER 2024-10-20 14:36 | Inpatient (IN) | payer MEDICARE, OTHER, SELFPAY ==
[2024-10-20 14:51] VITALS: BP 114/64; PULSE 78; RESP 18; TEMP 36.5; O2SAT 97; BMI 31.7
[2024-10-20 16:09] VITALS: BMI 32.0
[2024-10-20] MEDS: Midodrine HCl 5 MG Tablet PO (17:32)
[2024-10-20] MEDS: Lactulose 20 GM/30 ML UDC 10 GM PO (20:02)
[2024-10-20] MEDS: Tamsulosin HCl 0.4 MG Capsule PO (20:02)
[2024-10-20] MEDS: rifAXIMin 550 MG Tablet PO (20:02)
--- NOTE | 2024-10-20 20:23 | HP.PCM_ITS ---
HPI - General General Date of Admission: 10/20/24 Date of Service: 10/20/24 Chief Complaint: Here for rehabilitation. HPI Narrative STARLA GALE, is a 84 Male who presents with followin10/14/2024 [facility] ED fall. Fall in kitchen, hit left hip, passed out. EKG okay. CT head negative, CT cervical spine negative. CT C/A/P negative. CT lumbar spine negative. X-ray hip, pelvis negative. 10/14/2024 Admit [facility]. Albumin IV, Echo, Carotid duplex, AM Cortisol for syncope. Increase Midodrine to 10mg tid for orthostatic hypotension/syncope. Hold Tamsulosin, Hold Coreg, Hold Torsemide for syncope. 10/15/2024 MRI brain for syncope. 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 PT/OT/CM. Paracentesis removed 6.75 liters of fluid, albumin given. 10/15/2024 Carotid duplex showed mild right ICA stenosis, severe left ICA stenosis. 10/16/2024 More confused today. MRI brain showed moderate global atrophy. Ammonia 74. PT/OT. Restart lactulose for hepatic encephalopathy. 10/16/2024 Echo EF 60%. Diastolic dysfunction indeterminate. 10/17/2024 Feels okay. Doubt syncope 2/2 arrhythmia. Restart Aldactone, Restart Furosemide for ascites. Patient has been undergoing paracentesis weekly. 10/18/2024 No acute events overnight. Titrate up Aldactone, Furosemide as tolerated. 10/19/2024 PT/OT. Recommend outpatient referral to movement disorder specialist. Lactulose, Zithromax for hepatic encephalopathy.. 10/20/2024 Admit to TCU with debility, here for rehabilitation, strengthening, prior to discharge home with . [facility] Medical History (Updated 10/20/24 @ 20:[address] Kyle Maldonado MD) Abdominal ascites Wears dentures Bruising Prostate disease Restless legs History of diverticulitis Former smoker History of stress test Anemia due to gastrointestinal blood loss Bleeding external hemorrhoids Pilonidal cyst Macular degeneration Depression BPH (benign prostatic hyperplasia) High cholesterol Hypertension History of COVID-19 Hx of fracture of rib Home Medications ?Medication ?Instructions ?Recorded ?Last Taken ?Type finasteride 5 mg tablet 5 mg PO DAILY BPH 03/09/21 0 10/14/24 History ropinirole 0.25 mg tablet 0.25 mg PO PRN PRN restless legs 03/09/21 Unknown History tamsulosin 0.4 mg capsule 0.4 mg PO BID BPH 03/09/21 0 10/14/24 History nitroglycerin 0.4 mg sublingual 0.4 mg sublingual Q5M chest pain 08/01/23 Unknown History tablet midodrine 5 mg tablet 5 mg PO TIDCM low BP 30 days #90 08/05/23 10/14/24 Rx tabs taurine 1,000 mg capsule 1,000 mg PO Q6H supplement 0 09/30/24 10/14/24 History rifaximin 550 mg tablet (Xifaxan) 550 mg PO BID liver 10/08/24 10/14/24 History zinc sulfate 50 mg zinc (220 mg) 100 mg PO DAILY zinc supplement 10/14/24 10/14/24 History capsule (Orazinc) escitalopram oxalate 20 mg tablet 10 mg (1/2 x 20 mg) PO DAILY 10/20/24 10/14/24 Rx depression/mood 30 days #0 tabs furosemide 20 mg tablet 20 mg PO DAILY ascities 30 d ays 10/20/24 Unknown Rx #30 tabs lactulose 10 gram/15 mL oral 10 g (15 mL) PO TID liver 1 month 10/20/24 Unknown Rx solution #3,785 mL spironolactone 50 mg tablet 50 mg PO DAILY water pill/ edema 30 10/20/24 Unknown Rx days #30 tabs Allergy/AdvReac Type Severity Reaction Status Date / Time amoxicillin (From Augmentin) Allergy Other Verified 10/14/24 15:10 clavulanic acid (From Allergy Other Verified 10/14/24 15:10 Augmentin) lisinopril AdvReac Other Verified 10/14/24 15:10 Family History Mother Cancer Sister Cancer Other Heart disease Surgical History History of cataract surgery History of excision of pilonidal cyst History of herniorrhaphy Social History (Updated 10/20/24 @ 20:[address] Kyle Maldonado MD) household members: spouse Smoking Status: Former smoker alcohol intake: current alcohol intake frequency: other substance use type: does not use ROS Constitutional Constitutional: Reports weakness; Denies chills, fever(s) or weight gain ENT HEENT: Denies headache(s), nasal congestion or nasal discharge Cardiovascular Cardiovascular: Denies chest pain or palpitations Respiratory/Chest Respiratory/Chest: Denies cough, excessive phlegm production or shortness of breath with exertion Gastrointestinal Gastrointestinal: Denies abdominal pain, nausea or vomiting Genitourinary Genitourinary: Denies dysuria Musculoskeletal Musculoskeletal: Denies joint pain or joint swelling Integumentary Integumentary: Denies rash or wounds Neurologic Neurologic: Denies focal weakness, numbness or tingling Psychiatric Psychiatric: Denies anxiety, auditory hallucinations, depression, homicidal ideation or suicidal ideation Vital Signs Vital Signs Vital Signs: 10/20/24 14:51 10/20/24 14:51 Temperature 97.7 F L Temperature Source Temporal Pulse Rate 78 Pulse Rhythm Regular Pulse Strength Normal (2+) Respiratory Rate 18 Respiratory Effort Normal Non-Labored Respiratory Depth Normal Blood Pressure 114/64 Blood Pressure Mean 80 Blood Pressure Source Monitor Blood Pressure Position Sitting Blood Pressure Location Left Arm Pulse Ox 97 Oxygen Delivery Method Room Air Room Air Weight Weight: 78.88 kg Body Mass Index (BMI) 32.0 Physical Exam Const alert General Appearance: cooperative HEENT normocephalic Eyes PERRL and EOMs intact bilaterally Neck supple, no JVD and no carotid bruits Resp normal respiratory effort, normal air movement and clear to auscultation bilaterally Cardio regular rate and regular rhythm GI normal to inspection, nondistended, normoactive bowel sounds, non-tender and non-distended Extremity normal capillary refill General Extremity: Negative for edema Skin no rashes or lesions noted General Skin Exam: no breakdown Psych affect normal Appearance: appropriate Assessment & Plan Assessment/Plan (1) Debility: (2) Syncope: (3) Orthostatic hypotension: (4) Abdominal ascites: QUALIFIERS: Ascites type: other type Qualified Code(s): R18.8 - Other ascites (5) Cirrhosis of liver: (6) Hepatic encephalopathy: (7) Left carotid artery stenosis: (8) BPH (benign prostatic hyperplasia): (9) Restless legs: (10) Depression: PLAN: Plan 84 year old male with below past medical history hospitalized for fall, syncope 2/2 orthostatic hypotension, complicated abdominal ascites requiring paracentesis, hepatic encephalopathy, severe left carotid artery stenosis, admitted to TCU with debility, here for rehabilitation, strengthening, prior to discharge home with . * Debility - PT/OT. * Pain - Tylenol 1000mg q6 prn pain (1-10). * Bowel - Lactulose 10gm tid, Magnesium citrate 300mL daily prn. * Adult immunization - Administer pneumonia vaccine, covid vaccine, flu vaccine as appropriate. * DVT prophylaxis - Lovenox 40mg sc daily. * Depression - Lexapro 10mg daily, stable chronic senior living use, GDR not recommended. * BPH - Finasteride 5mg daily, Tamsulosin 0.4mg bid. * Ascites - Aldactone 50mg daily, Furosemide 20mg daily, paracentesis as needed. * Hepatic encephalopathy - Xifaxan 550mg po bid, Lactulose 10gm tid. * Orthostatic hypotension - Midodrine 5mg tid. * CAD - NTG 0.4mg sl q5m prn. * Restless legs - Mirapex 0.125mg daily prn. * Zinc deficiency - Zinc 100mg daily.
[2024-10-21] MEDS: Lactulose 20 GM/30 ML UDC 10 GM PO ×3 (05:21→21:21)
[2024-10-21] MEDS: Enoxaparin 40 MG/0.4 ML Syringe SC (05:21)
[2024-10-21 06:12] LABS: Absolute Lymphocyte Count 0.59 X10^3/uL (0.83-4.51); Absolute Neutrophil Count 3.6 X10^3/uL (2.0-7.7); Basophil# 0.05 X10^3/uL; Eosinophil# 0.16 X10^3/uL; Eosinophils% 3.2 % (0-5); Hematocrit 31.1 % (40-54); Hemoglobin 10.7 g/dL (13.0-16.5); Lymphocyte # 0.59 X10^3/ul (0.83-4.51); Lymphocyte % 11.8 % (19-41); Mean Corp Hgb Conc 34.4 g/dL (32-36); Mean Corpuscular Hgb 35.1 pg (27.0-32.0); Mean Platelet Vol. 9.9 fl (6.2-12.0); Monocyte# 0.56 X10^3/uL; Monocyte% 11.2 % (0-10); NRBC Flagged by Analyzer 0 % (0-5); Neutrophil # 3.61 X10^3/uL (2.7-7.7); Neutrophil % 72.4 % (47-70); POSITIVE COUNT YES; POSITIVE DIFFERENTIAL YES; Platelet Count 58 K/mm3 (150-450); RBC Distribution Width SD 52.5 fl (35.1-43.9); Red Blood Count 3.05 M/mm3 (4.6-6.2)
[2024-10-21 06:35] LABS: Anion Gap 9 (5-15); BUN 31 mg/dL (4-19); BUN/Creat Ratio 22.6 RATIO (10-20); Calcium,Total 8.3 mg/dL (7.6-11.0); Carbon Dioxide 17.2 mmol/L (21.0-32.0); Chloride 110 mmol/L (98-108); Creatinine, Serum 1.36 mg/dL (0.70-1.20); EST Glomerular Filtration Rate 51 (>60); Estimated Creatinine Clearance 36.12 ml/min (50-250); Glucose 110 mg/dL (70-99); Potassium 4.4 mmol/L (3.3-5.1); Sodium Level 137 mmol/L (133-145)
--- NOTE | 2024-10-21 08:17 | PHA.CONS_ITS ---
Documented by User: Yenny Strong 10/21/24 09:34 TCU RX Drug Regimen Review Subjective/Objective Subjective/Objective Subjective: TCU Admission. 84 YOM presented to ER with a fall. Hospitalized for fall, syncope 2/2 orthostatic hypotension, complicated abdominal ascites requiring paracentesis, hepatic encephalopathy, severe left carotid artery stenosis. Admitted to TCU with debility for strengthening and rehabilitation. Objective: Allergies amoxicillin (From Augmentin) Allergy (Verified 10/14/24 15:10) Other clavulanic acid (From Augmentin) Allergy (Verified 10/14/24 15:10) Other lisinopril Adverse Reaction (Verified 10/14/24 15:10) Other COUGH Current Medications Generic Name Dose Route Start Last Admin Trade Name Freq PRN Reason Stop Dose Admin Acetaminophen 1,000 mg 10/20/24 20:41 Acetaminophen 500 Mg Tablet PO Q6H PRN PRN Pain Score 1-10 Enoxaparin Sodium 40 mg 10/21/24 06:00 10/21/24 05:21 Enoxaparin 40 Mg/0.4 Ml Syringe SC 40 mg DAILY@0600 JUDITH Administration Escitalopram Oxalate 10 mg 10/21/24 10:00 Escitalopram Oxalate 10 Mg Tablet PO DAILY JUDITH Finasteride 5 mg 10/21/24 10:00 Finasteride 5 Mg Tablet PO DAILY [facility] Furosemide 20 mg 10/21/24 10:00 Furosemide 20 Mg Tablet PO DAILY [facility] Protocol Lactulose 10 gm 10/20/24 22:00 10/21/24 05:21 Lactulose 20 Gm/30 Ml Udc PO 10 gm TID JUDITH Administration Magnesium Citrate 300 ml 10/20/24 20:36 Magnesium Citrate 300 Ml PO DAILY PRN CONSTIPATION Midodrine 5 mg 10/20/24 17:45 10/20/24 17:32 Midodrine Hcl 5 Mg Tablet PO 5 mg TIDCM JUDITH Administration Nitroglycerin 0.4 mg 10/20/24 15:05 Nitroglycerin (Inpatient Use) 0.4 Mg Tab.Subl SL Q5M PRN chest pain Pramipexole Dihydrochloride 0.125 mg 10/20/24 14:57 Pramipexole Di-Hcl 0.125 Mg Tablet PO PRN PRN restless legs Rifaximin 550 mg 10/20/24 22:00 10/20/24 20:02 Rifaximin 550 Mg Tablet PO 550 mg BID JUDITH Administration Sodium Chloride 10 - 40 ml 10/20/24 15:18 0.9% Saline Lock 10 Ml Syringe IV UD PRN SALINE FLUSH Spironolactone 50 mg 10/21/24 10:00 Spironolactone 50 Mg Tablet PO DAILY [facility] Protocol Tamsulosin HCl 0.4 mg 10/20/24 22:00 10/20/24 20:02 Tamsulosin Hcl 0.4 Mg Capsule PO 0.4 mg BID JUDITH Administration Tuberculin PPD 0.1 ml 10/21/24 10:00 Tuberculin,Purif.Prot.Deriv. 50 Tu/Ml Vial ID 10/21/24 10:01 X1 ONE Tuberculin PPD 0.1 ml 10/28/24 10:00 Tuberculin,Purif.Prot.Deriv. 50 Tu/Ml Vial ID 10/28/24 10:01 X1 ONE Zinc Sulfate 100 mg 10/21/24 10:00 Zinc Sulfate 50 Mg Zinc (220 Mg) Oral Capsule PO DAILY [facility] Problem List Depression (Acute) Restless legs (Acute) BPH (benign prostatic hyperplasia) (Acute) Left carotid artery stenosis (Acute) Orthostatic hypotension (Acute) Hepatic encephalopathy (Acute) Debility (Acute) Syncope (Acute) Abdominal ascites (Acute) Vital Signs Temp Pulse Resp BP Pulse Ox O2 Del Method 97.7 F L 78 18 114/64 97 Room Air 10/20/24 14:51 10/20/24 14:51 10/20/24 14:51 10/20/24 14:51 10/20/24 14:51 10/20/24 14:51 Oxygen Delivery Method Room Air Weight: 78.88 kg Body Mass Index (BMI) 32.0 Sodium 137 mmol/L (133-145) 10/21/24 05:10 Potassium 4.4 mmol/L (3.3-5.1) 10/21/24 05:10 Chloride 110 mmol/L (98-108) H 10/21/24 05:10 Carbon Dioxide 17.2 mmol/L (21.0-32.0) L 10/21/24 05:10 Anion Gap 9 (5-15) 10/21/24 05:10 BUN 31 mg/dL (4-19) H 10/21/24 05:10 Creatinine 1.36 mg/dL (0.70-1.20) H 10/21/24 05:10 Est GFR (MDRD) Non-Af 51 (>60) L 10/21/24 05:10 BUN/Creatinine Ratio 22.6 RATIO (10-20) H 10/21/24 05:10 Glucose 110 mg/dL (70-99) H 10/21/24 05:10 Assessment/Plan: 1. Pain: acetaminophen 1000mg PO Q6H PRN pain 1-10. Please continue to monitor for increased pain and PRN usage. 2. Bowel: lactulose 10gm PO TID. Please continue to monitor for constipation and diarrhea. Last documented bowel movement was 10/19/24. 3. Orthostatic hypotension: midodrine 10mg PO TIDCM. Please continue to monitor BP (last 97/57) and insomnia. 4. Hepatic encephalopathy: rifaximin 550mg PO BID and lactulose 10gm PO TID. Please continue to monitor for confusion, diarrhea and ammonia (last was elevated at 74.1 on 10/15/24). 5. CAD: nitroglycerin 0.4mg SL Q5M PRN chest pain. No PRN doses have been given. Please continue to monitor for chest pain and PRN usage. 6. BPH: finasteride 5mg PO daily and tamsulosin 0.4mg PO BID. Please continue to monitor for S/S of BPH and BP. 7. Restless legs: pramipexole 0.125mg PO daily PRN restless legs. No PRN doses given. Please continue to monitor for restless legs and PRN usage. 8. Zinc deficiency: zinc sulfate 100mg PO daily. Please continue to monitor. Assessment/Plan for indications treated with psychotropic medications: 1. Depression: escitalopram 10mg PO daily. Please see physician note regarding GDR. Please continue to monitor for suicidal ideation (black box warning), sodium (last 137mmol/L), falls/fractures (BEERs). Medical chart and medication regimen reviewed. The following medication irregularities or issues were identified: None, enoxaparin stopped. Date Date of Note: 10/21/24 Documented by User: Dr. Kyle Maldonado MD 10/21/24 12:28 TCU RX Drug Regimen Review Provider Comments Provider responsibility Provider Comments to Recommendations by Pharmacy Agree
--- NOTE | 2024-10-21 08:47 | NURSING ---
Call from radiology, they have weekly paracentesis scheduled for resident tomorrow. It's been a week since last one, will send him down for procedure as scheduled. They need him down at 1015. Updated resident.
--- NOTE | 2024-10-21 08:57 | NURSING ---
Dr Maldonado updated on low Plts this AM, new order to DC lovenox.
[2024-10-21 09:02] VITALS: BP 86/82; PULSE 103; RESP 16; TEMP 36.6; O2SAT 93
[2024-10-21 09:03] VITALS: BP 97/57; PULSE 104
[2024-10-21] MEDS: rifAXIMin 550 MG Tablet PO ×2 (09:06→21:22)
[2024-10-21] MEDS: Escitalopram Oxalate 10 MG Tablet PO (09:06)
[2024-10-21] MEDS: Zinc Sulfate 50 mg zinc (220 mg) ORAL capsule 100 MG PO (09:06)
[2024-10-21] MEDS: Tamsulosin HCl 0.4 MG Capsule PO ×2 (09:06→21:22)
[2024-10-21] MEDS: Midodrine HCl 5 MG Tablet PO ×2 (09:06→09:20)
[2024-10-21] MEDS: Finasteride 5 MG Tablet PO (09:06)
[2024-10-21] MEDS: Tuberculin,Purif.prot.deriv. 50 TU/ML Vial 0.1 ML ID (09:19)
[2024-10-21] MEDS: 0.9% Normal Saline (1000mL) 1,000 ML 999 ML IV (09:46)
--- NOTE | 2024-10-21 09:55 | NURSING ---
dr rosenbaum notified of pt low BP, pt c/o feeling more weak today than normally. new orders to DC lasix, spirolactone, and increase midodrine 10mg, Give 1 liter bolus NS.
[2024-10-21] MEDS: 0.9% Saline Lock 10 ML Syringe IV (09:56)
--- NOTE | 2024-10-21 10:47 | NURSING ---
pt not interested in pneumonia vaccine at this time, he will follow up with his PCP after Discharge. states I have enough going on right now
[2024-10-21 11:15] VITALS: BP 100/57; PULSE 68
[2024-10-21 11:20] VITALS: PULSE 62; RESP 16; O2SAT 96
--- NOTE | 2024-10-21 13:37 | NURSING ---
[employer] Supervisor Note; Activity Asset: Linette Edwards prefers to be called' Ernie. Ernie is independent in his choice of daily activities. His will bring in items he may need or want and he enjoys anything that has to do w/the news. Ernie welcomes visits from the fiscal services director and therapy dog when available. Staff will encourage social activities, remind him of weekly activities and respect his right to say no.
[2024-10-21] MEDS: Midodrine HCl 5 MG Tablet 10 MG PO ×2 (13:59→17:08)
[2024-10-21] MEDS: Ensure Plus High Protein 120 ML LIQUID PO ×2 (17:08→21:22)
[2024-10-21 17:10] VITALS: BP 103/52; PULSE 66
[2024-10-22] MEDS: Ensure Plus High Protein 120 ML LIQUID PO ×4 (05:14→21:33)
[2024-10-22] MEDS: Lactulose 20 GM/30 ML UDC 10 GM PO ×3 (05:15→21:33)
[2024-10-22 07:38] LABS: Absolute Lymphocyte Count 0.43 X10^3/uL (0.83-4.51); Absolute Neutrophil Count 2.9 X10^3/uL (2.0-7.7); Basophil# 0.04 X10^3/uL; Eosinophil# 0.11 X10^3/uL; Eosinophils% 2.8 % (0-5); Hematocrit 30.3 % (40-54); Hemoglobin 10.5 g/dL (13.0-16.5); Lymphocyte # 0.43 X10^3/ul (0.83-4.51); Mean Corp Hgb Conc 34.7 g/dL (32-36); Mean Corpuscular Hgb 35.1 pg (27.0-32.0); Mean Corpuscular Volume 101.3 fL (80-94); Mean Platelet Vol. 10.2 fl (6.2-12.0); Monocyte# 0.41 X10^3/uL; Monocyte% 10.5 % (0-10); NRBC Flagged by Analyzer 0 % (0-5); Neutrophil # 2.89 X10^3/uL (2.7-7.7); Neutrophil % 74.2 % (47-70); POSITIVE COUNT YES; POSITIVE DIFFERENTIAL YES; Platelet Count 53 K/mm3 (150-450); RBC Distribution Width CV 14.1 % (11.6-14.6); RBC Distribution Width SD 52.3 fl (35.1-43.9); Red Blood Count 2.99 M/mm3 (4.6-6.2); White Blood Count 3.9 K/mm3 (4.4-11.0)
[2024-10-22 07:41] LABS: Differential Indicated SCAN CRITERIA MET
[2024-10-22 08:29] VITALS: BP 107/59; PULSE 87; RESP 18; TEMP 36.6; O2SAT 96
[2024-10-22] MEDS: Escitalopram Oxalate 10 MG Tablet PO (08:30)
[2024-10-22] MEDS: Midodrine HCl 5 MG Tablet 10 MG PO ×3 (08:30→17:29)
[2024-10-22] MEDS: Tamsulosin HCl 0.4 MG Capsule PO ×2 (08:30→21:33)
[2024-10-22] MEDS: Zinc Sulfate 50 mg zinc (220 mg) ORAL capsule 100 MG PO (08:31)
[2024-10-22] MEDS: rifAXIMin 550 MG Tablet PO ×2 (08:31→21:34)
[2024-10-22] MEDS: Finasteride 5 MG Tablet PO (08:31)
[2024-10-22 09:08] LABS: International Normalized Ratio 1.3; Prothrombin Time (Protime)PT. 16.9 SECONDS (11.7-14.9)
[2024-10-22 09:29] LABS: Platelet Estimate MOD DEC (ADEQ)
[2024-10-22 11:13] LABS: Partial Thromboplast Time 37.2 Seconds (24.1-36.2)
--- NOTE | 2024-10-22 12:22 | CASEMGMT ---
Social Work SW met with patient to complete initial assessment. Introduced self and role. Verified contacts. Verified code status as DNR-CCA, no intubation. Requested provide copies of advance directives to place on file. Pt stated is aware and plans to bring them this date. SW educated to Medicare benefit and copay coverage. Pt's goal is to return home at PLOF, but stronger and safer, with . SW will continue to follow for DC planning and support. Naz Brown CIGAR MAKING MACHINE OPERATOR ASSOCIATE PROFESSOR OF MATHEMATICS
[2024-10-22 13:17] VITALS: BP 92/54; PULSE 99
--- NOTE | 2024-10-22 13:20 | NURSING ---
Addendum entered by Vannessa Meyers 10/23/24 07:42: Late entry: 10/22/24- Resident taken down for paracentesis around 1015. Upon return VSS, 4150cc removed, order for albumin faxed to pharmacy by radiology staff. Original Note: Per pharmacy they did not receive order for albumin from ultrasound after paracentesis. Called radiology, they will re-fax order to pharmacy.
[2024-10-22] MEDS: Albumin Human 25% (100 mL) 25 GM/100 ML BAG IV (15:46)
[2024-10-22] MEDS: 0.9% Saline Lock 10 ML Syringe IV (15:46)
[2024-10-22 17:27] VITALS: BP 112/55; PULSE 77
[2024-10-23] MEDS: 0.9% Saline Lock 10 ML Syringe IV ×2 (05:25→22:02)
[2024-10-23] MEDS: Lactulose 20 GM/30 ML UDC 10 GM PO ×3 (05:25→21:58)
[2024-10-23] MEDS: Ensure Plus High Protein 120 ML LIQUID PO ×4 (05:29→21:58)
[2024-10-23 05:47] VITALS: PULSE 68; RESP 16; O2SAT 97
[2024-10-23 08:13] VITALS: BP 97/58; PULSE 88; RESP 18; TEMP 36.9; O2SAT 95
[2024-10-23] MEDS: Zinc Sulfate 50 mg zinc (220 mg) ORAL capsule 100 MG PO (08:18)
[2024-10-23] MEDS: Tamsulosin HCl 0.4 MG Capsule PO ×2 (08:18→21:59)
[2024-10-23] MEDS: Finasteride 5 MG Tablet PO (08:18)
[2024-10-23] MEDS: Escitalopram Oxalate 10 MG Tablet PO (08:18)
[2024-10-23] MEDS: rifAXIMin 550 MG Tablet PO ×2 (08:18→21:59)
[2024-10-23] MEDS: Midodrine HCl 5 MG Tablet 10 MG PO ×3 (08:18→17:06)
[2024-10-23 13:37] VITALS: BP 117/56; PULSE 64
--- NOTE | 2024-10-23 15:06 | CHAPLAIN ---
Type of Pastoral Visit ___ Initial Visit _x__ Follow-up Visit ___ On-call Visit ___ General Patient Visit ___ Spiritual Assessment ___ Family Conference ___ Bereavement ___ Rapid Response ___ Code Blue ___ Other (describe below) Pastoral Care Referral From ___ Patient ___ Family ___ Nurse ___ Physician _x__ Cap Machine Operator ___ Client Advocate ___ Other (describe below) Sacrament/Intervention _x__ Active listening ___ Anointing ___ Baptist ___ Bereavement ___ Communion ___ Myra exploration ___ ___ Life review _x__ Prayer ___ Reconciliation ___ Sacrament of Sick _x__ Supportive presence ___ Wedding ___ Other (describe below) Pastoral Comments patient is awake and sitting quietly in his chair; pt is offered time to reflect on his experience, how he is progressing in healing, if he has emotional support, and what concerns he might have; SW has mentioned that this patient has some discouragement and possible spiritual concerns; pt answers questions and gives responses that indicate he is accepting the situation just as it is and doesn't have many expectations for relationships or wellness; pt states that the One up there is in control not us; pt welcomes a prayer;
--- NOTE | 2024-10-23 15:12 | CHAPLAIN ---
Type of Pastoral Visit ___ Initial Visit _x__ Follow-up Visit ___ On-call Visit ___ General Patient Visit ___ Spiritual Assessment ___ Family Conference ___ Bereavement ___ Rapid Response ___ Code Blue ___ Other (describe below) Pastoral Care Referral From _x__ Patient ___ Family ___ Nurse ___ Physician ___ Vascular Technician ___ Freight Shipping Agent ___ Other (describe below) Sacrament/Intervention _x__ Active listening ___ Anointing ___ Sikhism ___ Bereavement ___ Communion ___ Myra exploration ___ ___ Life review _x__ Prayer ___ Reconciliation ___ Sacrament of Sick _x__ Supportive presence ___ Wedding ___ Other (describe below) Pastoral Comments patient and daughter are in the room talking; pt speaks of his routine which he does not care for because I have to do what they want on their schedule; pt agrees that goal is to get better and he is hoping for that; offer of support and presence given; pt denies needs but says that a prayer would be helpful; after the prayer the patient is tearful and expresses gratitude for the visit and prayer; offer to be supportive as needed
[2024-10-23 17:03] VITALS: BP 103/63; PULSE 85
[2024-10-24] MEDS: Lactulose 20 GM/30 ML UDC 10 GM PO ×3 (06:04→21:00)
[2024-10-24] MEDS: Ensure Plus High Protein 120 ML LIQUID PO ×2 (06:10→21:00)
[2024-10-24] MEDS: Finasteride 5 MG Tablet PO (08:07)
[2024-10-24] MEDS: Tamsulosin HCl 0.4 MG Capsule PO ×2 (08:07→21:00)
[2024-10-24] MEDS: Midodrine HCl 5 MG Tablet 10 MG PO ×3 (08:07→17:25)
[2024-10-24] MEDS: Zinc Sulfate 50 mg zinc (220 mg) ORAL capsule 100 MG PO (08:07)
[2024-10-24] MEDS: rifAXIMin 550 MG Tablet PO ×2 (08:07→21:00)
[2024-10-24] MEDS: Escitalopram Oxalate 10 MG Tablet PO (08:07)
[2024-10-24 09:55] VITALS: BP 119/66; PULSE 90; RESP 18; TEMP 36.6; O2SAT 98
[2024-10-24 17:24] VITALS: BP 117/71; PULSE 86
[2024-10-24] MEDS: 0.9% Saline Lock 10 ML Syringe IV (21:02)
[2024-10-25] MEDS: Ensure Plus High Protein 120 ML LIQUID PO ×4 (06:06→21:52)
[2024-10-25] MEDS: Lactulose 20 GM/30 ML UDC 10 GM PO ×3 (06:06→21:52)
[2024-10-25] MEDS: Midodrine HCl 5 MG Tablet 10 MG PO ×3 (07:52→16:45)
[2024-10-25] MEDS: Zinc Sulfate 50 mg zinc (220 mg) ORAL capsule 100 MG PO (07:52)
[2024-10-25] MEDS: Finasteride 5 MG Tablet PO (07:52)
[2024-10-25] MEDS: Tamsulosin HCl 0.4 MG Capsule PO ×2 (07:52→21:52)
[2024-10-25] MEDS: rifAXIMin 550 MG Tablet PO ×2 (07:52→21:52)
[2024-10-25] MEDS: Escitalopram Oxalate 10 MG Tablet PO (07:52)
[2024-10-25 08:46] VITALS: BP 120/68; PULSE 90; RESP 18; TEMP 36.4; O2SAT 98
--- NOTE | 2024-10-25 11:52 | NURSING ---
This nurse was notified by underground conduit installer, when underground conduit installer went to assist pt. out of bathroom. Rn Eligibility noticed and open area to pt. left forearm. This nurse went into pt. room to assess open area on pt. arm. Open area was a healing skin tear to left forearm that was scabbed over. When this nurse asked pt. what happened pt. stated it itched so i picked it off. Wound cleansed with soap and water, xeroform and DSD applied.
[2024-10-25 16:43] VITALS: BP 118/66; PULSE 74
[2024-10-26] MEDS: Lactulose 20 GM/30 ML UDC 10 GM PO ×3 (06:10→20:49)
[2024-10-26] MEDS: Ensure Plus High Protein 120 ML LIQUID PO ×3 (06:10→20:50)
--- NOTE | 2024-10-26 07:16 | NURSING ---
C/o 02/28 piercing pain to left groin area with movement, area observed and firm raised area observed to left groin. Patient reports hx of right groin hernia sx 50 years ago. Pain resolves with rest. Written communication left for Dr. Maldonado review this AM. Dr. Maldonado on unit at this time. Call light in reach. No distress observed or reported at this time.
[2024-10-26 07:19] VITALS: PULSE 68; RESP 16; O2SAT 95
[2024-10-26 07:46] VITALS: BP 107/68; PULSE 94; RESP 17; TEMP 36.8; O2SAT 94
[2024-10-26] MEDS: Midodrine HCl 5 MG Tablet 10 MG PO ×3 (07:48→17:53)
--- NOTE | 2024-10-26 09:22 | NURSING ---
Offered covid vaccine, VIS provided. Resident declines at this time.
--- NOTE | 2024-10-26 10:05 | NURSING ---
1000-off floor to CT via wheelchair.
--- NOTE | 2024-10-26 10:12 | NURSING ---
Patient returned to unit at this time from CT.
[2024-10-26] MEDS: Escitalopram Oxalate 10 MG Tablet PO (10:29)
[2024-10-26] MEDS: Zinc Sulfate 50 mg zinc (220 mg) ORAL capsule 100 MG PO (10:29)
[2024-10-26] MEDS: rifAXIMin 550 MG Tablet PO ×2 (10:29→20:50)
[2024-10-26] MEDS: Finasteride 5 MG Tablet PO (10:29)
[2024-10-26] MEDS: Tamsulosin HCl 0.4 MG Capsule PO ×2 (10:29→20:50)
[2024-10-26 13:17] VITALS: BP 116/65; PULSE 72
--- NOTE | 2024-10-26 16:12 | CASEMGMT ---
PHQ9 (0) and BIMS () interviews completed on this date for MDS assessment. RANJIT Garrison
--- NOTE | 2024-10-26 17:48 | NURSING ---
Dr. Maldonado reviewed CT imaging of abdomen/pelvis. Further imaging ordered by Dr. Maldonado and consult placed for general surgery.
[2024-10-26 17:52] VITALS: BP 102/75
--- NOTE | 2024-10-26 18:18 | NURSING ---
MRI questionnaire completed with patient and daughter, Marlen, via phone. Faxed to MRI.
[2024-10-26 18:40] LABS: Ammonia 43.6 umol/L (16-60)
[2024-10-27 07:26] VITALS: BP 119/69; PULSE 72; RESP 16; TEMP 37.3; O2SAT 94
--- NOTE | 2024-10-27 08:16 | NURSING ---
Call from in radiology. They will not be able to do paracentesis until this afternoon, will plan for 1430. She thinks MRI will need to be re-scheduled to tomorrow. She will discuss with them and call back.
[2024-10-27 09:45] VITALS: BP 102/63; PULSE 91; RESP 18; TEMP 36.9; O2SAT 94
[2024-10-27] MEDS: Zinc Sulfate 50 mg zinc (220 mg) ORAL capsule 100 MG PO (09:46)
[2024-10-27] MEDS: Tamsulosin HCl 0.4 MG Capsule PO ×2 (09:46→20:15)
[2024-10-27] MEDS: Midodrine HCl 5 MG Tablet 10 MG PO ×3 (09:46→17:12)
[2024-10-27] MEDS: Escitalopram Oxalate 10 MG Tablet PO (09:47)
[2024-10-27] MEDS: Finasteride 5 MG Tablet PO (09:47)
[2024-10-27] MEDS: rifAXIMin 550 MG Tablet PO ×2 (09:47→20:15)
--- NOTE | 2024-10-27 11:56 | CON.PCM.SX_ITS ---
Assessment & Plan Assessment/Plan (1) Left groin pain: (2) Left inguinal hernia: PLAN: Plan I have been consulted in conjunction with Dr. Sauceda. He has independently evaluated this patient. Patient is an 84 y/o M who notes a new onset of left groin pain. Patient was unaware he had a left groin hernia. There is evidence of a left inguinal hernia on CT scan in 2022 when compared to 10/26 CT scan. Hernia is able to be easily reduced and would be able to stay in place if her was able to wear a hernia belt/truss. Patient has multiple co-morbidities and an increased risk for any elective surgical intervention. Patient's abdominal ascites places patient at a higher risk for incisional leak and infection. At this time, no surgical intervention is being recommended. Patient is agreeable to wear a hernia belt/truss to allow the hernia to remain reduced. Patient scheduled for a paracentesis today and an MRI of the abdomen per nursing. Patient has had the opportunity to ask and have questions answered. Patient verbally understands and agrees with the plan. Thank you for allowing us to participate in this patient's care. HPI Consult Data Date of Consult: 10/27/24 HPI Narrative Reason for Consultation: Left groin pain HPI Narrative: STARLA GALE, is a 84 M who was recently hospitalized on the acute side for a syncopal, unwitnessed episode from 10/16-10/20. He did receive a concussion from the fall associated with amnesia. Head CT demonstrated small hematoma along the right frontal scalp, no acute intracranial finding. Cervical CT was negative. CT chest/ab/pel demonstrated no acute thoracic findings, ectasia of the ascending thoracic aorta, liver cirrhosis with findings of portal HTN, esophageal and perisplenic varices. Patient states he is seeing a medical services coordinator for liver disease. He notes 1 month ago he was diagnosed with liver cancer (hepatocellular carcinoma), (timing?). He notes he had 1 month of radiation. He has also developed abdominal ascites and has been having paracentesis performed every for the last 6 months. His most recent paracentesis was performed on 10/22 for 4150 cc of fluid. He has been having 4,000-6,000 cc of fluid removed each time. Patient is scheduled for a repeat paracentesis today. He denies any blood thinners. He notes having 2 falls within the last 2 weeks. He is unsure what prompted the syncopal episodes. He denies any dizziness associated with the syncopal episodes. He states since being discharged from the acute side of the hospital, he has developed left groin pain. He notes this has become severe especially with movement. He denies seeing a bulge or lump in the groin area. He tells me that he has had a right inguinal hernia repair with mesh 50 years ago. He denies any nausea, vomiting, lack of appetite or bowel habits changes. CT scan obtained yesterday, 10/26, in TCU for increased left groin pain: IMPRESSION: 1. Small LEFT inguinal hernia containing ascites. 2. Cirrhosis with sequela of portal hypertension again including moderate to large volume ascites. 3. Indeterminate 2.0 cm hepatic lesion could be perfusional given cirrhosis and increased risk of HCC, this warrants outpatient multiphase hepatic protocol MRI with and without contrast and with MRCP given the below unless there is a contraindication, in which case multiphase hepatic protocol CT with and without contrast could be performed. 4. Pancreatic hypodensities up to 1.4 cm, possible cystic neoplasm such as IPMN however this is not definite. Borderline mild main pancreatic ductal dilatation. Recommend attention on above recommended MRI which showed additionally include MRCP. 5. Abdominal aortic ectasia to 2.9 cm. Recommend follow-up in 5 years per 2013 ACR recommendations. 6. Additional description as above. [facility] Medical History (Updated 10/27/24 @ 13:55 by Joan VINES, PAPjC) Debility Abdominal ascites Wears dentures Bruising Prostate disease Restless legs History of diverticulitis Former smoker History of stress test Anemia due to gastrointestinal blood loss Bleeding external hemorrhoids Pilonidal cyst Macular degeneration Depression BPH (benign prostatic hyperplasia) High cholesterol Hypertension History of COVID-19 Hx of fracture of rib Home Medications ?Medication ?Instructions ?Recorded ?Last Taken ?Type finasteride 5 mg tablet 5 mg PO DAILY BPH 03/09/21 0 10/14/24 History ropinirole 0.25 mg tablet 0.25 mg PO PRN PRN restless legs 03/09/21 Unknown History tamsulosin 0.4 mg capsule 0.4 mg PO BID BPH 03/09/21 0 10/14/24 History nitroglycerin 0.4 mg sublingual 0.4 mg sublingual Q5M chest pain 08/01/23 Unknown History tablet midodrine 5 mg tablet 5 mg PO TIDCM low BP 30 days #90 08/05/23 10/14/24 Rx tabs taurine 1,000 mg capsule 1,000 mg PO Q6H supplement 0 09/30/24 10/14/24 History rifaximin 550 mg tablet (Xifaxan) 550 mg PO BID liver 10/08/24 10/14/24 History zinc sulfate 50 mg zinc (220 mg) 100 mg PO DAILY zinc supplement 10/14/24 10/14/24 History capsule (Orazinc) escitalopram oxalate 20 mg tablet 10 mg (1/2 x 20 mg) PO DAILY 10/20/24 10/14/24 Rx depression/mood 30 days #0 tabs furosemide 20 mg tablet 20 mg PO DAILY ascities 30 d ays 10/20/24 Unknown Rx #30 tabs lactulose 10 gram/15 mL oral 10 g (15 mL) PO TID liver 1 month 10/20/24 Unknown Rx solution #3,785 mL spironolactone 50 mg tablet 50 mg PO DAILY water pill/ edema 30 10/20/24 Unknown Rx days #30 tabs Allergy/AdvReac Type Severity Reaction Status Date / Time amoxicillin (From Augmentin) Allergy Other Verified 10/14/24 15:10 clavulanic acid (From Allergy Other Verified 10/14/24 15:10 Augmentin) lisinopril AdvReac Other Verified 10/14/24 15:10 Family History Mother Cancer Sister Cancer Other Heart disease Surgical History History of cataract surgery History of excision of pilonidal cyst History of herniorrhaphy Social History (Updated 10/20/24 @ 20:[address] Kyle Maldonado MD) household members: spouse Smoking Status: Former smoker alcohol intake: current alcohol intake frequency: other substance use type: does not use ROS Constitutional Constitutional: Reports systems reviewed and no addt'l complaints, except as documented Eyes Eyes: Reports systems reviewed and no addt'l complaints, except as documented ENT HEENT: Reports systems reviewed and no addt'l complaints, except as documented Cardiovascular Cardiovascular: Reports systems reviewed and no addt'l complaints, except as documented Respiratory/Chest Respiratory/Chest: Reports systems reviewed and no addt'l complaints, except as documented Gastrointestinal Gastrointestinal: Reports systems reviewed and no addt'l complaints, except as documented Genitourinary Genitourinary: Reports systems reviewed and no addt'l complaints, except as documented Musculoskeletal Musculoskeletal: Reports systems reviewed and no addt'l complaints, except as documented Integumentary Integumentary: Reports systems reviewed and no addt'l complaints, except as documented Neurologic Neurologic: Reports systems reviewed and no addt'l complaints, except as documented Psychiatric Psychiatric: Reports systems reviewed and no addt'l complaints, except as documented Endocrine Endocrinology: Reports systems reviewed and no addt'l complaints, except as documented Hematologic/Lymphatic Hematologic/Lymphatic: Reports systems reviewed and no addt'l complaints, except as documented Allergic/Immunologic Allergic/Immunologic: Reports systems reviewed and no addt'l complaints, except as documented Physical Exam Const alert, oriented x3 and no apparent distress HEENT normocephalic and head/scalp atraumatic Eyes PERRL Neck full ROM Chest inspection of chest normal Resp normal respiratory effort and clear to auscultation bilaterally Cardio regular rate and regular rhythm GI GI Narrative: Abdomen- taunt, distended. Bowel sounds present. Left groin tenderness with small left groin hernia palpated. Dr. Sauceda at bedside was able to easily reduce the hernia with the patient laying flat and knees bent. Following reducing the hernia, the patient has much less pain. no CVA tenderness Back/Spine no CVA tenderness Extremity normal to inspection Skin no rashes or lesions noted Neuro no focal motor deficits and no sensory deficits noted Psych cooperative and speech normal Lab / Micro Data 10/22/24 06:38 10/21/24 05:10 Labs: Laboratory Results - last 24 hr 10/26/24 17:40: Ammonia 43.6 Charges/Coding Visit Charges Inpatient E&M: 48694 SNF Init L1
[2024-10-27 13:19] VITALS: BP 126/70; PULSE 70; RESP 18
--- NOTE | 2024-10-27 13:28 | NURSING ---
Addendum entered by Vanita Brooke 10/27/24 16:28: Pt returns from procedures ~ 1545. Dressing to right abdomen [paracentesis site] clean, dry, intact. Pt's and daughter present at bedside, updated on Dr. Sauceda's consult/treatment earlier today. No further comments/concerns at this time. Original Note: Staff assists pt off floor for paracentesis, MRI. accompanying.
--- NOTE | 2024-10-27 16:39 | NURSING ---
~noon received phone call from pt's dtr, Marlen . She stated that pt called his and was very tearful because the doctor came in here and told me that I'm going to have to have surgery and can't go home now. No progress notes were in chart at time, assured dtr that I would update when possible. Dtr also requested that she is called first with updates regarding pt, as it can cause anxiety for pt's . Provided 1-on-1, active listening to pt who remains tearful but requested some time alone to process. ~1300 pt's at bedside, updated as requested. -updated pt, , and dtr regarding Dr. Sauceda's progress note/plan of care regarding hernia. Pt relieved he is not a surgical candidate. Currently in pleasant mood, no complaints. Called registration with request for pt's dtr to be listed as first to contact.
[2024-10-27 17:13] VITALS: BP 100/50; PULSE 62; RESP 16
[2024-10-27] MEDS: Ensure Plus High Protein 120 ML LIQUID PO ×2 (18:13→20:13)
[2024-10-27] MEDS: Lactulose 20 GM/30 ML UDC 10 GM PO (20:14)
[2024-10-28] MEDS: Ensure Plus High Protein 120 ML LIQUID PO (05:22)
[2024-10-28] MEDS: Lactulose 20 GM/30 ML UDC 10 GM PO ×3 (05:23→21:19)
[2024-10-28 06:11] LABS: Absolute Lymphocyte Count 0.56 X10^3/uL (0.83-4.51); Absolute Neutrophil Count 3.8 X10^3/uL (2.0-7.7); Basophil# 0.04 X10^3/uL; Basophil% 0.8 % (0-1); Eosinophil# 0.11 X10^3/uL; Eosinophils% 2.2 % (0-5); Hematocrit 33.5 % (40-54); Hemoglobin 11.5 g/dL (13.0-16.5); Lymphocyte # 0.56 X10^3/ul (0.83-4.51); Lymphocyte % 11.1 % (19-41); Mean Corp Hgb Conc 34.3 g/dL (32-36); Mean Corpuscular Hgb 34.7 pg (27.0-32.0); Mean Corpuscular Volume 101.2 fL (80-94); Mean Platelet Vol. 9.1 fl (6.2-12.0); Monocyte# 0.53 X10^3/uL; Monocyte% 10.5 % (0-10); NRBC Flagged by Analyzer 0 % (0-5); POSITIVE COUNT YES; POSITIVE DIFFERENTIAL YES; Platelet Count 70 K/mm3 (150-450); RBC Distribution Width CV 14.1 % (11.6-14.6); RBC Distribution Width SD 52.5 fl (35.1-43.9); Red Blood Count 3.31 M/mm3 (4.6-6.2); White Blood Count 5.1 K/mm3 (4.4-11.0)
[2024-10-28 07:44] LABS: Anion Gap 11 (5-15); BUN 41 mg/dL (4-19); BUN/Creat Ratio 29.4 RATIO (10-20); Calcium,Total 8.5 mg/dL (7.6-11.0); Carbon Dioxide 15.1 mmol/L (21.0-32.0); Chloride 106 mmol/L (98-108); EST Glomerular Filtration Rate 49 (>60); Estimated Creatinine Clearance 35.09 ml/min (50-250); Glucose 110 mg/dL (70-99); Potassium 4.4 mmol/L (3.3-5.1); Sodium Level 132 mmol/L (133-145)
[2024-10-28] MEDS: Tamsulosin HCl 0.4 MG Capsule PO ×2 (08:30→21:19)
[2024-10-28] MEDS: Midodrine HCl 5 MG Tablet 10 MG PO ×3 (08:30→17:03)
[2024-10-28] MEDS: Finasteride 5 MG Tablet PO (08:31)
[2024-10-28] MEDS: rifAXIMin 550 MG Tablet PO ×2 (08:31→21:19)
[2024-10-28] MEDS: Zinc Sulfate 50 mg zinc (220 mg) ORAL capsule 100 MG PO (08:31)
[2024-10-28] MEDS: Escitalopram Oxalate 10 MG Tablet PO (08:31)
--- NOTE | 2024-10-28 09:06 | CASEMGMT ---
Addendum entered by Naz Brown 10/28/24 11:07: Addendum: SW inquired to dtr about palliative care involvement. Dtr confirmed [facility] is aware of pt's admission and will schedule SOC after DC. SW to notify palliative with DC date as well. Original Note: Social Work IDT met with patient, and dtr for care plan meeting. Discussed patient's progress in PT/OT/ST/SN. Educated to Medicare benefit. Provided pt/family with written communication of insurance process and copay coverage during stay. IDT recommending pt is not home alone. Dtr confirmed pt is confused and is concerning. Offered therapy training for family. stated she was present yesterday for PT and has no concerns. SW inquired about plans for DC, if can assist. Offered and educated to resources for nonskilled HHC, [facility]. Educated to skilled HHC or OP therapy at DC. Family is in agreement with getting additional assistance in the home. The dtr explained pt has no routine at home and does not consistently take medications as prescribed and is struggling to maintain hers and pt's needs. SW provided resources. cannot provide CGA 11/02. IDT recommending pt continue with therapy for further improvements and this worker will follow up with family/pt next week to discuss setting DC date. Family agreeable. Dtr and appreicative of assistance. SW will continue to follow. Naz Brown [employer]
[2024-10-28 09:10] VITALS: BP 94/54; PULSE 86; RESP 18; TEMP 36.4; O2SAT 94
--- NOTE | 2024-10-28 10:10 | PCM.PN.SRG ---
Subjective Subjective Patient evaluated resting comfortably in bed. He notes soreness in the left groin area this morning. He completed his paracentesis and had 6300 mL removed yesterday. Objective Data Objective Data Vital Signs: Vital Signs Temp Pulse Resp BP Pulse Ox O2 Del Method 98.4 F 62 16 100/50 L 94 Room Air 10/27/24 09:45 10/27/24 17:13 10/27/24 17:13 10/27/24 17:13 10/27/24 09:45 10/27/24 17:13 Oxygen Delivery Method Room Air Weight: 173 lb 14.41 oz Body Mass Index (BMI) 32.0 Intake & Output: Intake and Output for Last 24 Hours 10/26/24 10/27/24 10/28/24 23:59 23:59 23:59 Intake Total 920 / 920 360 / 360 Balance 920 / 920 360 / 360 Lab / Micro Data 10/28/24 05:10 10/28/24 05:10 Labs: Laboratory Results - last 24 hr 10/28/24 05:10: WBC Cancelled 10/28/24 05:10: WBC 5.1, Corrected WBC Cancelled, RBC Cancelled 10/28/24 05:10: RBC 3.31 L, Hgb Cancelled 10/28/24 05:10: Hgb 11.5 L, Hct Cancelled 10/28/24 05:10: Hct 33.5 L, MCV Cancelled 10/28/24 05:10: MCV 101.2 H, MCH Cancelled 10/28/24 05:10: MCH 34.7 H, MCHC Cancelled 10/28/24 05:10: MCHC 34.3, RDW Std Deviation Cancelled 10/28/24 05:10: RDW Std Deviation 52.5 H, RDW Coeff of Randi Cancelled 10/28/24 05:10: RDW Coeff of Randi 14.1, Plt Count Cancelled 10/28/24 05:10: Plt Count 70 L, MPV Cancelled 10/28/24 05:10: MPV 9.1, Immature Gran % (Auto) Cancelled 10/28/24 05:10: Immature Gran % (Auto) 0.400, Neut % (Auto) Cancelled 10/28/24 05:10: Neut % (Auto) 75.0 H, Lymph % (Auto) Cancelled 10/28/24 05:10: Lymph % (Auto) 11.1 L, Waller % (Auto) Cancelled 10/28/24 05:10: Waller % (Auto) 10.5 H, Eos % (Auto) Cancelled 10/28/24 05:10: Eos % (Auto) 2.2, Baso % (Auto) Cancelled 10/28/24 05:10: Baso % (Auto) 0.8, Absolute Neuts (auto) Cancelled 10/28/24 05:10: Absolute Neuts (auto) 3.8, Absolute Lymphs (auto) Cancelled 10/28/24 05:10: Absolute Lymphs (auto) 0.56 L, Total Counted Cancelled, Neutrophils % (Manual) Cancelled, Band Neutrophils % Cancelled, Lymphocytes % (Manual) Cancelled, Monocytes % (Manual) Cancelled, Eosinophils % (Manual) Cancelled, Basophils % (Manual) Cancelled, Metamyelocytes % Cancelled, Myelocytes % Cancelled, Promyelocytes % Cancelled, Blast Cells % Cancelled, Plasma Cell % (Manual) Cancelled, Other Cells % Cancelled, Nucleated RBC % Cancelled 10/28/24 05:10: Nucleated RBC % 0, Nucleated RBCs/100 WBC Cancelled, Differential Comment Cancelled, Diff Path Review Cancelled, Hypersegmented Neuts Cancelled, Atypical Lymphocytes Cancelled, Reactive Lymphocytes Cancelled, Smudge Cells Cancelled, Toxic Granulation Cancelled, Toxic Vacuolation Cancelled, Dohle Bodies Cancelled, Little Rods Cancelled, Platelet Estimate Cancelled, Plt Morphology Comment Cancelled, RBC Morphology Cancelled 10/28/24 05:10: RBC Morphology Cancelled, Polychromasia Cancelled, Hypochromasia Cancelled, Basophilic Stippling Cancelled, Anisocytosis Cancelled, Microcytosis Cancelled, Macrocytosis Cancelled, Spherocytes Cancelled, Sickle Cells Cancelled, Target Cells Cancelled, Tear Drop Cells Cancelled, Ovalocytes Cancelled, Stomatocytes Cancelled, [place] Bodies Cancelled, Jose Cells Cancelled, Bite Cells Cancelled, Crenated Cell Cancelled, Acanthocytes (Spur) Cancelled, Rouleaux Cancelled, Schistocytes Cancelled, Sodium 132 L, Potassium 4.4, Chloride 106, Carbon Dioxide 15.1 L, Anion Gap 11, BUN 41 H, Creatinine 1.40 H, Estim Creat Clear Calc 35.09 L, Est GFR (MDRD) Non-Af 49 L, BUN/Creatinine Ratio 29.4 H, Glucose 110 H, Calcium 8.5 Physical Exam GI GI Narrative: Left groin- hernia was already reduced upon examination. He notes pain with palpation and examination of the hernia. Hernia is easily reducible Assessment & Plan Assessment/Plan (1) Left inguinal hernia: PLAN: I am following this patient in conjunction with Dr. Sauceda. He has independently evaluated this patient. Discussed again with patient that he would be very high risk for repair of the hernia Recommend a conservative approach We discussed with the patient obtaining a hernia belt/truss. Patient's family will need to order one to place over top of the hernia to continue to keep it reduced. We will sign off at this time. Please reach out if any concerns or issues arise. Thank you for allowing us to participate in this patient's care. Charges/Coding Visit Charges Inpatient E&M: 18264 SNF Subs L2
--- NOTE | 2024-10-28 10:47 | NURSING ---
Reached out to Dr. Maldonado about giving albumin, order to give 50mg IV after paracentesis yesterday.
[2024-10-28] MEDS: Albumin Human 25% (100 mL) 25 GM/100 ML BAG IV ×2 (12:09→13:54)
[2024-10-28] MEDS: Tuberculin,Purif.prot.deriv. 50 TU/ML Vial 0.1 ML ID (12:10)
[2024-10-28 12:19] VITALS: BP 110/68; PULSE 81
--- NOTE | 2024-10-28 13:04 | MDS.RN ---
Information for the MDS was obtained from review of the clinical record, interview of resident, staff, and direct observation of resident?s care.
[2024-10-28 17:04] VITALS: BP 97/56; PULSE 76; RESP 16
--- NOTE | 2024-10-28 17:45 | NURSING ---
Updated pt's dtr, Marlen regarding surgery's recommendation to purchase a hernia belt for pt. Dtr in agreement, states she will order one online or look at local store.
[2024-10-28] MEDS: 0.9% Saline Lock 10 ML Syringe IV (21:21)
[2024-10-28 21:30] VITALS: RESP 16
[2024-10-29] MEDS: Lactulose 20 GM/30 ML UDC 10 GM PO ×3 (05:10→20:44)
[2024-10-29 07:30] VITALS: BP 112/52; PULSE 89; RESP 16; TEMP 36.4; O2SAT 95
[2024-10-29] MEDS: Midodrine HCl 5 MG Tablet 10 MG PO ×3 (07:32→17:06)
[2024-10-29] MEDS: Tamsulosin HCl 0.4 MG Capsule PO ×2 (07:32→20:44)
[2024-10-29] MEDS: Finasteride 5 MG Tablet PO (07:33)
[2024-10-29] MEDS: rifAXIMin 550 MG Tablet PO ×2 (07:33→20:44)
[2024-10-29] MEDS: Zinc Sulfate 50 mg zinc (220 mg) ORAL capsule 100 MG PO (07:33)
[2024-10-29] MEDS: Escitalopram Oxalate 10 MG Tablet PO (07:33)
[2024-10-29] MEDS: 0.9% Saline Lock 10 ML Syringe IV ×2 (07:38→20:46)
--- NOTE | 2024-10-29 07:47 | NURSING ---
DR Maldonado consulting GI d/t pacreatic lesion on MRI ? EUS w/FNA. text message sent to Dr Loera this AM.
[2024-10-29 10:00] VITALS: PULSE 89; RESP 17; O2SAT 95
[2024-10-29 13:46] VITALS: BP 95/58; PULSE 81
[2024-10-29 13:48] VITALS: BP 115/63; PULSE 82
[2024-10-29 17:04] VITALS: BP 98/58; PULSE 61
--- NOTE | 2024-10-29 17:50 | EX.PCM.CON.G ---
HPI Consult Data Date of Consult: 10/29/24 HPI Narrative Reason for Consultation: Abnormal imaging HPI Narrative: STARLA GALE, is a 84 M who transferred to TCU for strengthening prior to discharge to home. He has a past medical history of [place] cirrhosis complicated by pancytopenia, ascites status post large-volume paracentesis without a history of SBP. Patient states he has no history of encephalopathy. I was asked to see him due to some imaging abnormalities. The patient underwent an MRI status post paracentesis. It was a limited study due to motion artifact. However it did display: Hepatic cirrhosis with sequela of portal hypertension 2.9 cm hepatic lesion at the junction of hepatic segments IV and I/II probably reflects intrahepatic portal venous thrombus given the constellation. There are surrounding associated perfusional changes extending into the LEFT lobe. The RIGHT and LEFT as well as the main portal vein remain grossly patent within limitations of motion. Additional 1.1 cm LI-RADS 3 lesion in segment V. Recommend clinical follow-up. Pancreatic cystic lesions up to 2.6 cm in the pancreatic tail, suboptimally evaluated given the degree of motion, possible cystic neoplasm such as IPMN although communication with the main pancreatic duct can not be definitively confirmed in light of motion. Clinical follow-up is recommended. Given size greater than 2.5 cm, recommend GI consultation for management and consideration of EUS with FNA. Nondilated mid and distal main pancreatic duct with mild dilatation proximally. Cholelithiasis and mild biliary dilatation without definite choledocholithiasis or other obstructing process allowing for considerable motion artifact. 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 [facility]LY [facility] Medical History Debility Abdominal ascites Wears dentures Bruising Prostate disease Restless legs History of diverticulitis Former smoker History of stress test Anemia due to gastrointestinal blood loss Bleeding external hemorrhoids Pilonidal cyst Macular degeneration Depression BPH (benign prostatic hyperplasia) High cholesterol Hypertension History of COVID-19 Hx of fracture of rib Home Medications ?Medication ?Instructions ?Recorded ?Last Taken ?Type finasteride 5 mg tablet 5 mg PO DAILY BPH 03/09/21 10/14/24 History ropinirole 0.25 mg tablet 0.25 mg PO PRN PRN restless legs 03/09/21 Unknown History tamsulosin 0.4 mg capsule 0.4 mg PO BID BPH 03/09/21 10/14/24 History nitroglycerin 0.4 mg sublingual 0.4 mg sublingual Q5M chest pain 08/01/23 Unknown History tablet midodrine 5 mg tablet 5 mg PO TIDCM low BP 30 days #90 08/05/23 10/14/24 Rx tabs taurine 1,000 mg capsule 1,000 mg PO Q6H supplement 09/30/24 10/14/24 History rifaximin 550 mg tablet (Xifaxan) 550 mg PO BID liver 10/08/24 10/14/24 History zinc sulfate 50 mg zinc (220 mg) 100 mg PO DAILY zinc supplement 10/14/24 10/14/24 History capsule (Orazinc) escitalopram oxalate 20 mg tablet 10 mg (1/2 x 20 mg) PO DAILY 10/20/24 10/14/24 Rx depression/mood 30 days #0 tabs furosemide 20 mg tablet 20 mg PO DAILY ascities 30 days 10/20/24 Unknown Rx #30 tabs lactulose 10 gram/15 mL oral 10 g (15 mL) PO TID liver 1 month 10/20/24 Unknown Rx solution #3,785 mL spironolactone 50 mg tablet 50 mg PO DAILY water pill/edema 30 10/20/24 Unknown Rx days #30 tabs Allergy/AdvReac Type Severity Reaction Status Date / Time amoxicillin (From Augmentin) Allergy Other Verified 10/14/24 15:10 clavulanic acid (From Allergy Other Verified 10/14/24 15:10 Augmentin) lisinopril AdvReac Other Verified 10/14/24 15:10 Family History Mother Cancer Sister Cancer Other Heart disease Surgical History History of cataract surgery History of excision of pilonidal cyst History of herniorrhaphy Social History household members: spouse Smoking Status: Former smoker alcohol intake: current alcohol intake frequency: other substance use type: does not use ROS Constitutional Constitutional: Denies fatigue, fever(s), poor appetite, weight gain or weight loss Gastrointestinal Gastrointestinal: Denies belching, bloating, change in bowel habits, change in stool character, chewing difficulty, coffee ground emesis, constipation, cramping, diarrhea, dyspepsia, dysphagia, early satiety, excessive flatus, fecal incontinence, heartburn, hematemesis, hematochezia, hemorrhoids, loose stools, melena, nausea, odynophagia, rectal bleeding, tenesmus, vomiting or weight changes Lab / Micro Data 10/28/24 05:10 10/28/24 05:10 Assessment & Plan Assessment/Plan (1) Syncope: PLAN: 84-year-old gentleman with MRI shows moderate global atrophy. Ammonia elevated at 74. Patient has had these frequent falls at home that have been unwitnessed. (2) Hematoma of frontal scalp: PLAN: 2/2 fall. Healing well (3) Debility: (4) Abdominal ascites: QUALIFIERS: Ascites type: other type Qualified Code(s): R18.8 - Other ascites PLAN: He had been on diuretics in the past but because of the kidney issues which his braille operator had taken him off. Meantime patient has just been getting scheduled ascites with albumin infusions based volume taken off.Patient underwent a ultrasound-guided paracentesis that removed 6.75 L of fluid. Pt received 50g of albumin DW patient, he was start on spironolactone and furosemide. (5) Hepatic encephalopathy: PLAN: Ammonia is 74 despite being on rifaximin for the past several weeks. He is confused with asterixis and I am concerned for potential worsening potential increased risk of falls. Therefore I feel it is warranted to start him on lactulose. Previously, the patient had been on lactulose but had stopped due to severe diarrhea that he was having. Advised starting him back on the lactulose to help with his encephalopathy and hopefully help with some of his other motor functions and that way we can observe him to see if we can regulate the lactulose to get to a ideal dosing that would provide him the benefits of improving his encephalopathy but also not causing voluminous diarrhea. (6) Low bicarbonate: PLAN: 17.9 today, but was 11.9 on admission. Level went up without intervention. Unclear etiology. Will give oral NaCO3 and recheck in AM. (7) Pancreatic lesion: PLAN: The etiology of these pancreatic lesions are not known. Differential diagnosis does include IPMN, serous cystoadenoma, mucinous cystadenoma, pseudocyst. He should undergo endoscopic ultrasound with FNA of pancreatic tail lesion and CA 19-9. Unfortunately we do not have the capability to do that at this institution but we can draw CA 19-9 and get him referred to [facility]. (8) Hepatic lesion: PLAN: The hepatic lesions are concerning for hepatocellular carcinoma. Especially since one of the lesions is associated with intrahepatic portal vein thrombosis. There does not seem to be any compromise of the liver due to the portal vein thrombosis. It is a natural phenomenon to develop portal vein thrombosis in the setting of cirrhosis. However it should be watched very closely. Charges/Coding Visit Charges Inpatient E&M: 47363 [facility] Init L2
--- NOTE | 2024-10-29 18:39 | NURSING ---
Dr Loera in to see pt at this time.
[2024-10-30] MEDS: Lactulose 20 GM/30 ML UDC 10 GM PO ×3 (05:25→22:05)
[2024-10-30 08:15] VITALS: BP 95/61; PULSE 73; RESP 16; TEMP 36.3; O2SAT 95
[2024-10-30] MEDS: Midodrine HCl 5 MG Tablet 10 MG PO ×3 (08:20→18:28)
[2024-10-30] MEDS: Tamsulosin HCl 0.4 MG Capsule PO ×2 (08:21→21:32)
[2024-10-30] MEDS: Finasteride 5 MG Tablet PO (08:21)
[2024-10-30] MEDS: Escitalopram Oxalate 10 MG Tablet PO (08:21)
[2024-10-30] MEDS: Zinc Sulfate 50 mg zinc (220 mg) ORAL capsule 100 MG PO (08:22)
[2024-10-30] MEDS: rifAXIMin 550 MG Tablet PO ×2 (08:22→21:32)
[2024-10-30] MEDS: Acetaminophen 500 MG Tablet 1000 MG PO ×2 (11:33→21:32)
[2024-10-30 12:49] VITALS: BP 100/57; PULSE 71
[2024-10-30] MEDS: 0.9% Saline Lock 10 ML Syringe IV ×2 (12:50→22:05)
[2024-10-30 20:25] VITALS: PULSE 80; O2SAT 95
[2024-10-31] MEDS: Lactulose 20 GM/30 ML UDC 10 GM PO ×3 (06:08→21:38)
[2024-10-31 06:27] LABS: AFP, Tumor Marker 2.5 ng/mL (0.0-6.4); Carbohydrate AG 19-9 < 2 U/mL (0-35)
[2024-10-31 08:36] VITALS: BP 121/72; PULSE 85; RESP 18; TEMP 36.6; O2SAT 94
[2024-10-31] MEDS: Midodrine HCl 5 MG Tablet 10 MG PO ×3 (08:39→17:24)
[2024-10-31] MEDS: Finasteride 5 MG Tablet PO (08:39)
[2024-10-31] MEDS: Tamsulosin HCl 0.4 MG Capsule PO ×2 (08:39→21:41)
[2024-10-31] MEDS: Escitalopram Oxalate 10 MG Tablet PO (08:39)
[2024-10-31] MEDS: Zinc Sulfate 50 mg zinc (220 mg) ORAL capsule 100 MG PO (08:40)
[2024-10-31] MEDS: rifAXIMin 550 MG Tablet PO ×2 (08:40→21:40)
[2024-10-31] MEDS: Acetaminophen 500 MG Tablet 1000 MG PO (10:01)
[2024-10-31 13:06] VITALS: BP 102/59
[2024-10-31] MEDS: 0.9% Saline Lock 10 ML Syringe IV ×2 (13:08→21:41)
[2024-10-31 17:22] VITALS: BP 107/55
[2024-10-31 20:00] VITALS: PULSE 76; O2SAT 95
[2024-11-01] MEDS: Lactulose 20 GM/30 ML UDC 10 GM PO ×3 (05:26→20:16)
[2024-11-01 06:47] VITALS: PULSE 84; O2SAT 93
[2024-11-01] MEDS: Acetaminophen 500 MG Tablet 1000 MG PO ×2 (09:00→16:29)
[2024-11-01] MEDS: Tamsulosin HCl 0.4 MG Capsule PO ×2 (09:01→20:16)
[2024-11-01] MEDS: Midodrine HCl 5 MG Tablet 10 MG PO ×3 (09:01→17:48)
[2024-11-01] MEDS: Zinc Sulfate 50 mg zinc (220 mg) ORAL capsule 100 MG PO (09:02)
[2024-11-01] MEDS: rifAXIMin 550 MG Tablet PO ×2 (09:02→20:16)
[2024-11-01] MEDS: Finasteride 5 MG Tablet PO (09:02)
[2024-11-01] MEDS: Escitalopram Oxalate 10 MG Tablet PO (09:02)
[2024-11-01] MEDS: 0.9% Saline Lock 10 ML Syringe IV ×2 (13:21→20:17)
[2024-11-01 14:16] VITALS: BP 96/56; PULSE 89; RESP 18; TEMP 36.4; O2SAT 95
[2024-11-02] MEDS: Lactulose 20 GM/30 ML UDC 10 GM PO ×3 (05:44→20:15)
[2024-11-02] MEDS: Acetaminophen 500 MG Tablet 1000 MG PO (09:27)
[2024-11-02] MEDS: rifAXIMin 550 MG Tablet PO ×2 (09:28→20:16)
[2024-11-02] MEDS: Zinc Sulfate 50 mg zinc (220 mg) ORAL capsule 100 MG PO (09:28)
[2024-11-02] MEDS: Finasteride 5 MG Tablet PO (09:28)
[2024-11-02] MEDS: Escitalopram Oxalate 10 MG Tablet PO (09:28)
[2024-11-02] MEDS: Midodrine HCl 5 MG Tablet 10 MG PO ×3 (09:28→17:07)
[2024-11-02] MEDS: Tamsulosin HCl 0.4 MG Capsule PO ×2 (09:28→20:16)
--- NOTE | 2024-11-02 10:15 | NURSING ---
Daughter concerned about whether patient's liver cancer is back and whether it has spread. She was under impression we were doing further testing here but read over Dr. Loera's report with her and the plan to refer to [facility] for further testing. She appeared upset that she would need to take her father all the way to [place] for this. I let her know I did not know full plan for what was needed for testing and that I could have Dr. Loera reach out to her with more information. Let Dr. Loera know patient's daughter Marlen wants called with more information and provided him with daughter's number.
[2024-11-02] MEDS: 0.9% Saline Lock 10 ML Syringe IV ×2 (13:11→20:18)
[2024-11-02 16:00] VITALS: BP 113/68; PULSE 76; RESP 18; TEMP 36.2; O2SAT 96
[2024-11-02 22:00] VITALS: PULSE 86; RESP 16
[2024-11-03] MEDS: Lactulose 20 GM/30 ML UDC 10 GM PO ×3 (05:30→20:17)
[2024-11-03 05:40] VITALS: PULSE 80
[2024-11-03] MEDS: Escitalopram Oxalate 10 MG Tablet PO (08:59)
[2024-11-03] MEDS: Tamsulosin HCl 0.4 MG Capsule PO ×2 (08:59→20:17)
[2024-11-03] MEDS: Midodrine HCl 5 MG Tablet 10 MG PO ×3 (08:59→17:24)
[2024-11-03] MEDS: rifAXIMin 550 MG Tablet PO ×2 (08:59→20:19)
[2024-11-03] MEDS: Finasteride 5 MG Tablet PO (08:59)
[2024-11-03] MEDS: Zinc Sulfate 50 mg zinc (220 mg) ORAL capsule 100 MG PO (09:00)
[2024-11-03] MEDS: Acetaminophen 500 MG Tablet 1000 MG PO ×2 (11:18→20:18)
[2024-11-03 11:53] VITALS: BMI 31.4
[2024-11-03] MEDS: 0.9% Saline Lock 10 ML Syringe IV ×2 (13:10→20:17)
[2024-11-03 13:20] VITALS: BP 95/61; PULSE 78; RESP 16; TEMP 36.3; O2SAT 96
[2024-11-04 04:55] VITALS: RESP 16
[2024-11-04] MEDS: Acetaminophen 500 MG Tablet 1000 MG PO ×3 (05:05→20:24)
[2024-11-04] MEDS: Lactulose 20 GM/30 ML UDC 10 GM PO ×3 (05:05→20:25)
[2024-11-04 05:49] LABS: Absolute Lymphocyte Count 0.46 X10^3/uL (0.83-4.51); Absolute Neutrophil Count 3.3 X10^3/uL (2.0-7.7); Basophil# 0.02 X10^3/uL; Basophil% 0.5 % (0-1); Eosinophil# 0.13 X10^3/uL; Eosinophils% 2.9 % (0-5); Hematocrit 33.3 % (40-54); Hemoglobin 11.5 g/dL (13.0-16.5); Lymphocyte # 0.46 X10^3/ul (0.83-4.51); Lymphocyte % 10.4 % (19-41); Mean Corp Hgb Conc 34.5 g/dL (32-36); Mean Corpuscular Hgb 35.2 pg (27.0-32.0); Mean Corpuscular Volume 101.8 fL (80-94); Mean Platelet Vol. 10.6 fl (6.2-12.0); Monocyte# 0.49 X10^3/uL; NRBC Flagged by Analyzer 0 % (0-5); Neutrophil # 3.31 X10^3/uL (2.7-7.7); Neutrophil % 74.5 % (47-70); POSITIVE COUNT YES; POSITIVE DIFFERENTIAL YES; Platelet Count 57 K/mm3 (150-450); RBC Distribution Width CV 14.5 % (11.6-14.6); RBC Distribution Width SD 54.2 fl (35.1-43.9); Red Blood Count 3.27 M/mm3 (4.6-6.2); White Blood Count 4.4 K/mm3 (4.4-11.0)
[2024-11-04 06:57] LABS: Anion Gap 9 (5-15); BUN 50 mg/dL (4-19); BUN/Creat Ratio 33.4 RATIO (10-20); Calcium,Total 8.9 mg/dL (7.6-11.0); Carbon Dioxide 19.9 mmol/L (21.0-32.0); Chloride 106 mmol/L (98-108); EST Glomerular Filtration Rate 45 (>60); Estimated Creatinine Clearance 32.59 ml/min (50-250); Glucose 115 mg/dL (70-99); Potassium 5.5 mmol/L (3.3-5.1); Sodium Level 135 mmol/L (133-145)
[2024-11-04 08:15] VITALS: BP 95/62; PULSE 80; RESP 18; TEMP 36.5; O2SAT 97
[2024-11-04] MEDS: Finasteride 5 MG Tablet PO (08:17)
[2024-11-04] MEDS: rifAXIMin 550 MG Tablet PO ×2 (08:18→20:48)
[2024-11-04] MEDS: Tamsulosin HCl 0.4 MG Capsule PO ×2 (08:18→20:24)
[2024-11-04] MEDS: Midodrine HCl 5 MG Tablet 10 MG PO ×3 (08:18→18:55)
[2024-11-04] MEDS: Escitalopram Oxalate 10 MG Tablet PO (08:18)
[2024-11-04] MEDS: Zinc Sulfate 50 mg zinc (220 mg) ORAL capsule 100 MG PO (08:18)
[2024-11-04] MEDS: Sodium Polystyrene Sulfonate 15 GM/60 ML UDC 30 GM PO (09:03)
--- NOTE | 2024-11-04 11:51 | NURSING ---
Received call from Radiology, plan for pt's weekly paracentesis tomorrow, 11/05 @6541. Updated pt.
[2024-11-04 12:10] VITALS: BP 127/71; PULSE 100; RESP 18
[2024-11-04 14:12] VITALS: BP 99/57; PULSE 83; RESP 18
[2024-11-04 16:00] VITALS: BP 131/73; PULSE 96; RESP 20; O2SAT 96
[2024-11-04 18:54] VITALS: BP 129/72; PULSE 90; RESP 16
[2024-11-04] MEDS: traMADol 50 MG Tablet PO (20:29)
[2024-11-05] MEDS: Acetaminophen 500 MG Tablet 1000 MG PO ×3 (06:02→21:18)
[2024-11-05] MEDS: Lactulose 20 GM/30 ML UDC 10 GM PO ×3 (06:03→21:18)
[2024-11-05 06:32] LABS: Anion Gap 10 (5-15); BUN 55 mg/dL (4-19); BUN/Creat Ratio 35.5 RATIO (10-20); Calcium,Total 8.8 mg/dL (7.6-11.0); Carbon Dioxide 19.6 mmol/L (21.0-32.0); Chloride 105 mmol/L (98-108); Creatinine, Serum 1.56 mg/dL (0.70-1.20); EST Glomerular Filtration Rate 43 (>60); Estimated Creatinine Clearance 31.34 ml/min (50-250); Glucose 129 mg/dL (70-99); Potassium 4.2 mmol/L (3.3-5.1); Sodium Level 135 mmol/L (133-145)
--- NOTE | 2024-11-05 10:56 | NURSING ---
received report on pt- nurse states pt needs 36gm of albumin based off fluid removed of 6050. dr rosenbaum on unit- confirmed 36 gm
[2024-11-05 11:10] VITALS: BP 108/59; PULSE 70; RESP 17; TEMP 36.2; O2SAT 98
[2024-11-05] MEDS: Midodrine HCl 5 MG Tablet 10 MG PO ×3 (11:14→18:12)
[2024-11-05] MEDS: Escitalopram Oxalate 10 MG Tablet PO (11:15)
[2024-11-05] MEDS: rifAXIMin 550 MG Tablet PO ×2 (11:15→21:18)
[2024-11-05] MEDS: Finasteride 5 MG Tablet PO (11:15)
[2024-11-05] MEDS: Zinc Sulfate 50 mg zinc (220 mg) ORAL capsule 100 MG PO (11:15)
[2024-11-05] MEDS: Tamsulosin HCl 0.4 MG Capsule PO ×2 (11:15→21:18)
[2024-11-05] MEDS: Albumin Human 25% (100 mL) 25 GM/100 ML BAG IV (11:47)
[2024-11-05] MEDS: 0.9% Saline Lock 10 ML Syringe IV (11:49)
[2024-11-05] MEDS: Albumin Human 25% (50 mL) 12.5 GM/50 ML IV.SOLN IV (13:30)
--- NOTE | 2024-11-05 16:11 | NURSING ---
pt daughter enquired about labs being sent to [facility]- Most recent labs printed and faxed to [facility] at this time. this nurse also verified follow-up appoint with Dr toshia VINES for tomorrow. pt daughter confirmed family would be here to take him
[2024-11-05 21:15] VITALS: PULSE 70; RESP 14; O2SAT 96
[2024-11-06] MEDS: Acetaminophen 500 MG Tablet 1000 MG PO ×3 (05:00→21:52)
[2024-11-06] MEDS: Lactulose 20 GM/30 ML UDC 10 GM PO ×3 (05:00→21:51)
[2024-11-06 08:43] VITALS: BP 107/62; PULSE 67; RESP 17; TEMP 36.7; O2SAT 95
[2024-11-06] MEDS: Midodrine HCl 5 MG Tablet 10 MG PO ×3 (08:52→18:25)
[2024-11-06] MEDS: Zinc Sulfate 50 mg zinc (220 mg) ORAL capsule 100 MG PO (08:52)
[2024-11-06] MEDS: Tamsulosin HCl 0.4 MG Capsule PO ×2 (08:52→21:52)
[2024-11-06] MEDS: Escitalopram Oxalate 10 MG Tablet PO (08:52)
[2024-11-06] MEDS: rifAXIMin 550 MG Tablet PO ×2 (08:52→21:52)
[2024-11-06] MEDS: Finasteride 5 MG Tablet PO (08:52)
--- NOTE | 2024-11-06 09:57 | CASEMGMT ---
Social Work SW spoke with dtr to follow up on DC planning as IDT is nearing setting a DC date. Dtr stated pt has an appt with Dr. Loera's office this morning and her siblings are coming into town this weekend, thus all will discuss what care pt and will need then make a decision. Dtr agrees pt will be too much for and her self-care and dtr's self-care are important. SW agreed and requested dtr contact this worker Saturday to provide update. Dtr agreed and appreciative. SW will continue to follow. Naz Brown MSW MANAGER SHIPPING
--- NOTE | 2024-11-06 11:28 | NURSING ---
pt off unit with daughter and to [facility] for appointment
--- NOTE | 2024-11-06 12:35 | NURSING ---
PT BACK TO UNIT- ACCOMPANIED BY AND DAUGHTER
[2024-11-06] MEDS: 0.9% Saline Lock 10 ML Syringe IV (21:50)
[2024-11-07] MEDS: Acetaminophen 500 MG Tablet 1000 MG PO ×3 (06:34→23:21)
[2024-11-07] MEDS: Lactulose 20 GM/30 ML UDC 10 GM PO ×3 (06:34→23:20)
[2024-11-07] MEDS: Midodrine HCl 5 MG Tablet 10 MG PO ×3 (08:12→16:57)
[2024-11-07] MEDS: Tamsulosin HCl 0.4 MG Capsule PO ×2 (08:13→23:21)
[2024-11-07] MEDS: rifAXIMin 550 MG Tablet PO ×2 (08:14→23:21)
[2024-11-07] MEDS: Finasteride 5 MG Tablet PO (08:14)
[2024-11-07] MEDS: Zinc Sulfate 50 mg zinc (220 mg) ORAL capsule 100 MG PO (08:14)
[2024-11-07] MEDS: Escitalopram Oxalate 10 MG Tablet PO (08:14)
[2024-11-07 13:24] VITALS: BP 123/70; PULSE 84; RESP 18; TEMP 36.6; O2SAT 95
[2024-11-07 23:15] VITALS: BP 106/61; PULSE 74; O2SAT 96
[2024-11-07] MEDS: 0.9% Saline Lock 10 ML Syringe IV (23:23)
[2024-11-08] MEDS: Acetaminophen 500 MG Tablet 1000 MG PO ×3 (06:42→21:00)
[2024-11-08] MEDS: Lactulose 20 GM/30 ML UDC 10 GM PO ×3 (06:42→21:00)
[2024-11-08 09:13] VITALS: BP 125/71; PULSE 86; RESP 17; TEMP 36.2; O2SAT 94
[2024-11-08] MEDS: Escitalopram Oxalate 10 MG Tablet PO (09:18)
[2024-11-08] MEDS: Tamsulosin HCl 0.4 MG Capsule PO ×2 (09:18→21:00)
[2024-11-08] MEDS: rifAXIMin 550 MG Tablet PO ×2 (09:18→21:00)
[2024-11-08] MEDS: Midodrine HCl 5 MG Tablet 10 MG PO ×3 (09:18→17:06)
[2024-11-08] MEDS: Finasteride 5 MG Tablet PO (09:18)
[2024-11-08] MEDS: Zinc Sulfate 50 mg zinc (220 mg) ORAL capsule 100 MG PO (09:19)
[2024-11-09] MEDS: Lactulose 20 GM/30 ML UDC 10 GM PO ×3 (05:52→21:15)
[2024-11-09] MEDS: Acetaminophen 500 MG Tablet 1000 MG PO ×3 (05:52→21:15)
[2024-11-09 08:43] VITALS: BP 102/58; PULSE 74; RESP 17; TEMP 36.4; O2SAT 93
[2024-11-09] MEDS: Escitalopram Oxalate 10 MG Tablet PO (08:46)
[2024-11-09] MEDS: Finasteride 5 MG Tablet PO (08:46)
[2024-11-09] MEDS: Tamsulosin HCl 0.4 MG Capsule PO ×2 (08:46→21:15)
[2024-11-09] MEDS: Midodrine HCl 5 MG Tablet 10 MG PO ×3 (08:46→17:12)
[2024-11-09] MEDS: Zinc Sulfate 50 mg zinc (220 mg) ORAL capsule 100 MG PO (08:47)
[2024-11-09] MEDS: rifAXIMin 550 MG Tablet PO ×2 (08:47→21:15)
[2024-11-10] MEDS: Lactulose 20 GM/30 ML UDC 10 GM PO ×3 (05:52→21:02)
[2024-11-10] MEDS: Acetaminophen 500 MG Tablet 1000 MG PO ×3 (05:53→21:02)
[2024-11-10] MEDS: Escitalopram Oxalate 10 MG Tablet PO (08:36)
[2024-11-10] MEDS: Tamsulosin HCl 0.4 MG Capsule PO ×2 (08:36→21:02)
[2024-11-10] MEDS: Finasteride 5 MG Tablet PO (08:36)
[2024-11-10] MEDS: Zinc Sulfate 50 mg zinc (220 mg) ORAL capsule 100 MG PO (08:36)
[2024-11-10] MEDS: rifAXIMin 550 MG Tablet PO ×2 (08:36→21:02)
[2024-11-10] MEDS: Midodrine HCl 5 MG Tablet 10 MG PO ×3 (08:38→17:36)
[2024-11-10 10:19] VITALS: BMI 31.6
--- NOTE | 2024-11-10 15:55 | CASEMGMT ---
Social Work SW received call from Tg at [facility] that dtr contacted their agency to provide care for pt and at home, and they can accept. Tg to complete assessment once pt is discharged since it is not 24/7 care and they can better assess pt's needs. SW agreed. SW inquired about preference for DC date with staffing. No preference noted, just ample notice to coordinate staffing. SW agreed. - SW phoned dtr to discuss DC plans with caregivers and to set DC date. Dtr confirmed caregivers and is meeting with pt's this afternoon to finalize. Dtr to notify this worker of outcome. SW will continue to follow. Naz Brown MSW OBSTETRICS/GYNECOLOGY NURSE
[2024-11-10 16:00] VITALS: BP 96/60; PULSE 83; RESP 16; TEMP 36.3; O2SAT 94
--- NOTE | 2024-11-10 16:27 | CASEMGMT ---
Social Work SW received return call from dtr stating she spoke with pt's . The goal was to have [address] in the morning and the evening, but learned of the pricing and it was not preferred. Dtr explained to from [facility] that the hours can vary after the needs are better assessed in the home. Dtr inquired about pricing for AL and SNF for comparison. SW provided, which are comparable but AL/SNF provide 24/7 care. SW also noted that when the COURT ABSTRACTOR are not there, the will need to provide the CGA, even at night. Dtr stated pt sleeps in a recliner in the living room and sleeps in the bedroom. SW noted the ability for to hear and respond to pt when he gets up in the middle of the night. Educated to OTC bed/chair alarms. Dtr appreciative of suggestion and has more to consider. Dtr to speak with and discuss options. SW noted d/t to ensure a smooth, planned DC, and the need to coordinate COURT ABSTRACTOR prior, offered to set DC date. Dtr agreed and requested preferred date 11/17 d/t scheduling conflicts prior. SW agreed. Dtr appreciative. Plan: DC 11/17, destination [place] [facility]
[2024-11-10] MEDS: Primidone 50 MG Tablet PO (21:02)
[2024-11-10 23:00] VITALS: PULSE 78; O2SAT 95
[2024-11-11] MEDS: Lactulose 20 GM/30 ML UDC 10 GM PO ×3 (05:24→23:00)
[2024-11-11] MEDS: Acetaminophen 500 MG Tablet 1000 MG PO ×3 (05:24→23:00)
--- NOTE | 2024-11-11 06:05 | NURSING ---
Confusion and increased weakness observed. Observed attempting to self transfer. Educated fabrication lead light. Gait slow and unsteady. EAx1 with transfers and ADLS. Written communication left for Dr. Maldonado. Repositioned for comfort. Denies requests. Call light in reach. Bed in lowest position.
[2024-11-11 06:46] LABS: Anion Gap 11 (5-15); BUN 67 mg/dL (4-19); BUN/Creat Ratio 39.7 RATIO (10-20); Calcium,Total 9.2 mg/dL (7.6-11.0); Carbon Dioxide 17.8 mmol/L (21.0-32.0); Chloride 102 mmol/L (98-108); Creatinine, Serum 1.69 mg/dL (0.70-1.20); EST Glomerular Filtration Rate 39 (>60); Glucose 119 mg/dL (70-99); Potassium 4.7 mmol/L (3.3-5.1); Sodium Level 131 mmol/L (133-145)
[2024-11-11 06:58] LABS: Absolute Lymphocyte Count 0.53 X10^3/uL (0.83-4.51); Absolute Neutrophil Count 3.8 X10^3/uL (2.0-7.7); Basophil# 0.03 X10^3/uL; Basophil% 0.6 % (0-1); Hemoglobin 11.4 g/dL (13.0-16.5); Lymphocyte # 0.53 X10^3/ul (0.83-4.51); Lymphocyte % 10.8 % (19-41); Mean Corp Hgb Conc 34.5 g/dL (32-36); Mean Corpuscular Hgb 35.4 pg (27.0-32.0); Mean Corpuscular Volume 102.5 fL (80-94); Mean Platelet Vol. 10.1 fl (6.2-12.0); Monocyte# 0.46 X10^3/uL; Monocyte% 9.4 % (0-10); NRBC Flagged by Analyzer 0 % (0-5); Neutrophil # 3.77 X10^3/uL (2.7-7.7); Neutrophil % 76.8 % (47-70); POSITIVE COUNT YES; POSITIVE DIFFERENTIAL YES; Platelet Count 53 K/mm3 (150-450); RBC Distribution Width CV 14.7 % (11.6-14.6); RBC Distribution Width SD 55.4 fl (35.1-43.9); Red Blood Count 3.22 M/mm3 (4.6-6.2); White Blood Count 4.9 K/mm3 (4.4-11.0)
[2024-11-11] MEDS: Zinc Sulfate 50 mg zinc (220 mg) ORAL capsule 100 MG PO (08:03)
[2024-11-11] MEDS: rifAXIMin 550 MG Tablet PO ×2 (08:03→23:00)
[2024-11-11] MEDS: Finasteride 5 MG Tablet PO (08:03)
[2024-11-11] MEDS: Tamsulosin HCl 0.4 MG Capsule PO ×2 (08:03→23:00)
[2024-11-11] MEDS: Midodrine HCl 5 MG Tablet 10 MG PO ×3 (08:03→17:04)
[2024-11-11] MEDS: Escitalopram Oxalate 10 MG Tablet PO (08:03)
--- NOTE | 2024-11-11 08:32 | CASEMGMT ---
Social Work SW phoned Tg at [facility] to update on DC date and considering hours of COMMISSION ASSOCIATE and pricing. Tg appreciative of update. Naz Brown ALL AROUND PRESSER GASOLINE PUMP INSTALLER
[2024-11-11 09:47] LABS: Ammonia 34.8 umol/L (16-60)
[2024-11-11 10:00] VITALS: BP 102/66; PULSE 67; RESP 20; TEMP 36.3; O2SAT 97
--- NOTE | 2024-11-11 10:58 | NURSING ---
Addendum entered by Keeley Diaz 11/11/24 15:43: Patient walking in [place] with therapy and daughter able to see at this time. Patient remains confused but not as weak as this AM. Original Note: Spoke with about MRI on 11/12 and she states this was cancelled and that they have switched doctors and will not be following up with [facility] any longer. She was also updated that patient was very confused last night and attempted to self transfer. Also made aware that patient was very weak this AM for therapy and that he needed two people to help him with transfers and about new medication for tremors. states she was hoping to be taking him home soon but is now unsure if this will be possible with how weak and confused Jerry has been. Palliative consult is placed per Dr. Maldonado.
[2024-11-11] MEDS: Primidone 50 MG Tablet PO (23:00)
[2024-11-12] MEDS: Lactulose 20 GM/30 ML UDC 10 GM PO ×3 (05:42→20:54)
[2024-11-12] MEDS: Acetaminophen 500 MG Tablet 1000 MG PO ×3 (05:43→20:54)
[2024-11-12 08:27] VITALS: BP 116/67; PULSE 73; RESP 18; TEMP 37.1; O2SAT 96
[2024-11-12] MEDS: Escitalopram Oxalate 10 MG Tablet PO (08:31)
[2024-11-12] MEDS: Tamsulosin HCl 0.4 MG Capsule PO ×2 (08:31→20:55)
[2024-11-12] MEDS: Zinc Sulfate 50 mg zinc (220 mg) ORAL capsule 100 MG PO (08:31)
[2024-11-12] MEDS: Midodrine HCl 5 MG Tablet 10 MG PO ×3 (08:31→18:32)
[2024-11-12] MEDS: rifAXIMin 550 MG Tablet PO ×2 (08:31→20:54)
[2024-11-12] MEDS: Finasteride 5 MG Tablet PO (08:31)
[2024-11-12 12:36] VITALS: BP 119/62; PULSE 77
[2024-11-12] MEDS: Ammonium Lactate 225 gm Bottle 1 APPLIC TOPICAL ×2 (12:38→20:57)
--- NOTE | 2024-11-12 12:49 | NURSING ---
Addendum entered by Sue Art 11/12/24 14:42: Patient c/o double vision along with difficulties bringing cup to mouth when drinking. Patient's hands/arms are making jerking movements. Patient was started on Primidone on 11/10/24. Side effects of medications reviewed. Call placed to Dr. Maldonado with update. New order to discontinue Primidone. VORB. Original Note: Patient c/o double vision. Vital signs obtained and focus assessment completed. Patient states it get better after I focus. Patient is drowsy today d/t paracentesis. BGT obtained and WNL. Second RN to assess. Patient states his double vision is better. Patient overall is at baseline. Will continue to monitor. Call light within reach.
[2024-11-12 13:05] LABS: Bedside Glucose 120 mg/dL (74-106)
[2024-11-12] MEDS: 0.9% Saline Lock 10 ML Syringe IV (14:14)
[2024-11-12] MEDS: Albumin Human 25% (100 mL) 25 GM/100 ML BAG IV (14:14)
--- NOTE | 2024-11-12 14:27 | CASEMGMT ---
Social Work SW phoned dtr to follow up on finalizing DC plans. Dtr reported pt's is in agreement for DC home, but decreased hours needed to 4 hours in the morning and she can care for pt the rest of the day. SW offered to coordinate skilled HHC. SW offered list of skilled HHC agencies within geographical area, INN with insurance, that include quality and resource data via [employer] guide. Dtr denied and stated you pick for me. SW offered [facility]. Dtr agreed. Dtr denied DME needs. Dtr will transport pt at DC. SW to notify palliative of DC date and will contact family to schedule. Dtr appreciative of assistance. - JHONATHAN phoned referral to [facility] PT/OT/ST/SN. JHONATHAN sent secure email to [facility]. Notified [facility] CM of DC to follow. Plan: DC home 11/17 with and [facility], [facility] PT/OT/ST/SN Naz Brown MSW THERMOMETER PRODUCTION WORKER
[2024-11-12 18:31] VITALS: BP 110/58; PULSE 77
--- NOTE | 2024-11-12 21:05 | DS.PCM_ITS ---
Providers Date of Admission: 10/20/24 Primary Care Physician: Dr. Adam Lynn MD Consultations 10/26/24 17:07 Consult: General Surgery Routine Consulting Provider: Brandan Sauceda Reason for Consult: Left inguinal hernia, severe pain. EMERGENT Consult: No Notified: Yes Date Notified: 10/27/24 Time Notified: 08:16 Method of Notification: Text 10/29/24 07:34 Consult: Gastroenterology Routine Consulting Provider: [facility] Reason for Consult: Pancreatic cystic lesion on MRI ?EUS with FNA. EMERGENT Consult: No MD Notified: Yes Date Notified: 10/29/24 Time Notified: 07:34 Method of Notification: Text 11/11/24 07:36 Consult: Hospice / Palliative Care Routine Consulting Provider: [facility] Reason for Consult: Palliative for liver cancer. EMERGENT Consult: No Notified: No Date Notified: 11/11/24 Time Notified: 07:36 Reason For Visit: SYNCOPE Diagnosis Discharge Diagnosis (1) Syncope: Status: Resolved Code(s): R55 - Syncope and collapse (2) Hematoma of frontal scalp: Status: Acute Code(s): S00.03XA - Contusion of scalp, initial encounter (3) Debility: Status: Inactive Code(s): R53.81 - Other malaise (4) Abdominal ascites: Status: Acute Code(s): R18.8 - Other ascites Qualifiers: Ascites type: other type Qualified Code(s): R18.8 - Other ascites (5) Hepatic encephalopathy: Status: Resolved Code(s): K76.82 - Hepatic encephalopathy (6) Low bicarbonate: Status: Acute Code(s): E87.8 - Other disorders of electrolyte and fluid balance, not elsewhere classified (7) Pancreatic lesion: Status: Acute Code(s): K86.9 - Disease of pancreas, unspecified (8) Hepatic lesion: Status: Acute Code(s): K76.9 - Liver disease, unspecified Plan 84 year old male with below past medical history hospitalized for fall, syncope 2/2 orthostatic hypotension, complicated abdominal ascites requiring paracentesis, hepatic encephalopathy, severe left carotid artery stenosis, admitted to TCU with debility, here for rehabilitation, strengthening, prior to discharge home with . * Debility - PT/OT. * Pain - Tylenol 1000mg q6 prn pain (1-10). * Bowel - Lactulose 10gm tid, Magnesium citrate 300mL daily prn. * Adult immunization - Administer pneumonia vaccine, covid vaccine, flu vaccine as appropriate. * DVT prophylaxis - Lovenox 40mg sc daily. * Depression - Lexapro 10mg daily, stable chronic group home use, GDR not recommended. * BPH - Finasteride 5mg daily, Tamsulosin 0.4mg bid. * Ascites - Aldactone 50mg daily, Furosemide 20mg daily, paracentesis as needed. * Hepatic encephalopathy - Xifaxan 550mg po bid, Lactulose 10gm tid. * Orthostatic hypotension - Midodrine 5mg tid. * CAD - NTG 0.4mg sl q5m prn. * Restless legs - Mirapex 0.125mg daily prn. * Zinc deficiency - Zinc 100mg daily. Medications at Discharge Home Medications finasteride 5 mg tablet 5 mg PO DAILY BPH 03/09/21 tamsulosin 0.4 mg capsule 0.4 mg PO BID BPH 03/09/21 nitroglycerin 0.4 mg sublingual tablet 0.4 mg sublingual Q5M chest pain 08/01/23 rifaximin 550 mg tablet (Xifaxan) 550 mg PO BID liver 10/08/24 zinc sulfate 50 mg zinc (220 mg) capsule (Orazinc) 100 mg PO DAILY zinc supplement 10/14/24 escitalopram oxalate 20 mg tablet 10 mg (1/2 x 20 mg) PO DAILY depression/mood 30 days #0 tabs 10/20/24 lactulose 10 gram/15 mL oral solution 10 g (15 mL) PO TID liver 1 month #3,785 mL 10/20/24 acetaminophen 500 mg tablet 1,000 mg (2 x 500 mg) PO Q8 #0 tabs 11/12/24 midodrine 5 mg tablet 10 mg (2 x 5 mg) PO TIDCM 30 days #180 tabs 11/12/24 pramipexole 0.125 mg tablet 0.125 mg PO PRN PRN restless legs #0 tabs 11/12/24 Hospital Course Operations None Procedures Paracentesis Summary of Care Provided Minutes Spent on Discharge: 35 Hospital Course: 84 year old male with below past medical history hospitalized for fall, syncope 2/2 orthostatic hypotension, complicated abdominal ascites requiring paracentesis, hepatic encephalopathy, severe left carotid artery stenosis, admitted to TCU with debility, here for rehabilitation, strengthening, prior to discharge home with . Resident has large volume paracentesis with albumin administration once per week. Discharge home 11/07/2024 with and [facility], [facility] PT/OT/ST/SN. Resident has liver cancer, cirrhosis of liver, is hospice appropriate, refer when patient/family ready. Physical Exam Const alert General Appearance: cooperative HEENT normocephalic Eyes PERRL and EOMs intact bilaterally Neck supple, no JVD and no carotid bruits Resp normal respiratory effort, normal air movement and clear to auscultation bilaterally Cardio regular rate and regular rhythm GI normal to inspection, nondistended, normoactive bowel sounds, non-tender and non-distended Extremity normal capillary refill General Extremity: Negative for edema Skin no rashes or lesions noted General Skin Exam: no breakdown Psych affect normal Appearance: appropriate Weight / BMI Weight Weight: 78.471 kg Body Mass Index (BMI) 31.6 ABG / Lab / Microbiology Data 11/11/24 05:04 11/11/24 05:04 Laboratory: Laboratory Results - last 24 hr 11/12/24 12:47: POC Glucose 120 H D/C Instructions Discharge Diet: No restrictions Discharge Activity: Return to Normal Activity, May Shower and Use Walker Weight Bearing Status: Weight bearing as tolerated DC O2, CPAP, BIPAP Needs Home O2 Discharge instructions: No Please Follow Up With: Chandrika Cross (GI) Meaningful Use Info Meaningful Use Meaningful Use Diagnoses (Choose all that apply): None applicable Ischemic Stroke Statin Dosing Therapy Reference: STATIN DOSE THERAPY REFERENCE: * Patients > 75 years receive moderate or high dose statin therapy. * Patients 75 years or YOUNGER should receive HIGH intensity statin dose unless contraindicated. You will be required to document reason for non-treatment if statin daily dose does not meet guidelines. HIGH DOSE STATIN THERAPY DAILY Atorvastatin > than or = to 40 mg Rosuvastatin > than or = to 20 mg Amlodipine + Atorvastatin > than or = to 2.5/40 mg Ezetimibe + Simvastatin 10/80 mg Simvastatin 80mg Discharge Plan Admission Admit Date/Time: 10/20/24 14:36 Primary Reason for Your Visit: Debility. Attending Provider: Kyle Maldonado Chi Primary Care Provider: Adam Lynn Consulting Providers: Brandan Sauceda Instructions Additional Instructions / Restrictions: Discharge home 11/07/2024 with and [facility], [facility] PT/OT/ST/SN. Resident has liver cancer, cirrhosis of liver, is hospice appropriate, refer when patient/family ready. Discharge Orders/Prescriptions Prescriptions: New midodrine 5 mg Tablet 10 mg PO TIDCM 30 Days Qty: 180 0RF acetaminophen 500 mg Tablet 1,000 mg PO Q8 Qty: 0 0RF pramipexole 0.125 mg Tablet 0.125 mg PO PRN PRN (Reason: restless legs) Qty: 0 0RF Continued tamsulosin 0.4 mg Capsule 0.4 mg PO BID finasteride 5 mg Tablet 5 mg PO DAILY nitroglycerin 0.4 mg tablet, sublingual 0.4 mg sublingual Q5M Rx Instructions: do not exceed 3 doses per episode zinc sulfate [Orazinc] 50 mg zinc (220 mg) capsule 100 mg PO DAILY lactulose 10 gram/15 mL Solution 10 g PO TID 30 Days Qty: 3785 2RF escitalopram oxalate 20 mg tablet 10 mg PO DAILY 30 Days Qty: 0 0RF Patient Comments: dose reduced recently Xifaxan 550 mg tablet 550 mg PO BID Discontinued pramipexole 0.125 mg tablet 0.125 mg PO QDAY PRN (Reason: restless leg(s)) midodrine 5 mg Tablet 5 mg PO TIDCM 30 Days Qty: 90 0RF furosemide 20 mg Tablet 20 mg PO DAILY 30 Days Qty: 30 1RF spironolactone 50 mg Tablet 50 mg PO DAILY 30 Days Qty: 30 2RF Rx Instructions: Hold for serum potassium more than 5.0 taurine 1,000 mg capsule 1,000 mg PO Q6H Referrals / Follow Up: Adam Lynn MD [Primary Care Provider] - 11/19/24 11:40 am ([phone] Will see the SHELL TRIM TOOL SETTER Cassandra Harris) Disposition Disposition (needs filled in before D/C Order can be placed): Home Health Service
[2024-11-13] MEDS: Lactulose 20 GM/30 ML UDC 10 GM PO ×3 (05:31→20:18)
[2024-11-13] MEDS: Acetaminophen 500 MG Tablet 1000 MG PO ×3 (05:31→20:17)
[2024-11-13] MEDS: Midodrine HCl 5 MG Tablet 10 MG PO ×3 (08:17→18:14)
[2024-11-13] MEDS: Finasteride 5 MG Tablet PO (08:18)
[2024-11-13] MEDS: Tamsulosin HCl 0.4 MG Capsule PO ×2 (08:18→20:16)
[2024-11-13] MEDS: rifAXIMin 550 MG Tablet PO ×2 (08:18→20:17)
[2024-11-13] MEDS: Zinc Sulfate 50 mg zinc (220 mg) ORAL capsule 100 MG PO (08:18)
[2024-11-13] MEDS: Escitalopram Oxalate 10 MG Tablet PO (08:18)
[2024-11-13] MEDS: Ammonium Lactate 225 gm Bottle 1 APPLIC TOPICAL ×2 (08:20→20:18)
[2024-11-13 10:00] VITALS: BP 107/59; PULSE 76; RESP 18; TEMP 36.6; O2SAT 96
[2024-11-13] MEDS: 0.9% Saline Lock 10 ML Syringe IV ×2 (15:07→20:20)
--- NOTE | 2024-11-13 16:23 | NURSING ---
Patient tearful today and is upset about his health. After discussion with this nurse, he agrees that having Lexapro increased could help. Dr. Maldonado made aware and Lexapro is increased to 20mg. Patient made aware.
[2024-11-13 22:05] VITALS: BP 118/67; PULSE 74; RESP 18; TEMP 36.6; O2SAT 97
--- NOTE | 2024-11-14 00:19 | NURSING ---
Patient continues to be weak and confused. Patient able to answer questions with short replies, unable to answer orientation questions at this time. Patient very difficult to arouse this evening. Sternal rub effective, yet patient would quickly fall back asleep. Patient observed to be very drowsy and lethargic. Once aroused, patient was not able to follow most commands. During med administration, Patient would take medicine cup to his mouth and back down and would repeat this movement slowly multiple times. This nurse took medicine cup away from patient and asked if he needed assistance. Patient states, I think I can do it, and repeated the same motions again without actually taking medicine. This nurse attempted meds whole in applesauce one at a time, patient then chewed pills. This nurse cued patient not to chew pills, just swallow. Patient continued to chew pills. This nurse then did pills whole one at at time on a spoon, following with water. Patient then swallowed medicine, no pills were pocketed upon oral assessment following med administration. Patient's facial movements are equal, patient's finishing and shipping supervisor are equal with tremors, vitals are stable (refer to worklist). Patient states to this nurse, I'm very tired. hydrochloric acid operator x2 assisted patient to bed per patient's request. Bed in lowest position, call light in reach. Patient denies further assistance.
[2024-11-14] MEDS: Lactulose 20 GM/30 ML UDC 10 GM PO ×3 (05:55→20:16)
[2024-11-14] MEDS: Acetaminophen 500 MG Tablet 1000 MG PO ×3 (05:56→21:01)
[2024-11-14] MEDS: Midodrine HCl 5 MG Tablet 10 MG PO ×2 (08:03→13:57)
[2024-11-14] MEDS: Tamsulosin HCl 0.4 MG Capsule PO ×2 (08:04→20:17)
[2024-11-14] MEDS: Finasteride 5 MG Tablet PO (08:04)
[2024-11-14] MEDS: Escitalopram Oxalate 20 MG Tablet PO (08:04)
[2024-11-14] MEDS: rifAXIMin 550 MG Tablet PO ×2 (08:04→20:17)
[2024-11-14] MEDS: Zinc Sulfate 50 mg zinc (220 mg) ORAL capsule 100 MG PO (08:05)
[2024-11-14] MEDS: Ammonium Lactate 225 gm Bottle 1 APPLIC TOPICAL ×2 (08:09→20:16)
[2024-11-14 10:00] VITALS: BP 106/59; PULSE 80; RESP 16; TEMP 36.5; O2SAT 95
[2024-11-14] MEDS: 0.9% Saline Lock 10 ML Syringe IV (14:01)
[2024-11-14 17:52] VITALS: BP 132/68; PULSE 76
[2024-11-14 20:10] VITALS: PULSE 80; RESP 18; O2SAT 95
[2024-11-15 04:16] VITALS: PULSE 55; RESP 16; O2SAT 96
[2024-11-15] MEDS: Lactulose 20 GM/30 ML UDC 10 GM PO ×3 (04:57→21:39)
--- NOTE | 2024-11-15 06:46 | NURSING ---
Confusion and weakness continue. Able to verbalize correct name and place, unable to states correct time of day, poor safety awareness, personal alarm in place per order and functioning properly to alert staff of unassisted transfers. EAx2 stand pivot transfers and bed mobility. Gait weak and unsteady. Denies pain. Denies requests. Resps even and unlabored. No distress observed or reported. Call light and personal items within reach, bed in lowest position.
[2024-11-15 08:02] VITALS: BP 120/67; PULSE 70; RESP 16; TEMP 36.6; O2SAT 98
[2024-11-15] MEDS: Midodrine HCl 5 MG Tablet 10 MG PO ×3 (08:05→18:28)
[2024-11-15] MEDS: Tamsulosin HCl 0.4 MG Capsule PO ×2 (08:05→21:41)
[2024-11-15] MEDS: Ammonium Lactate 225 gm Bottle 1 APPLIC TOPICAL ×2 (08:05→21:40)
[2024-11-15] MEDS: Zinc Sulfate 50 mg zinc (220 mg) ORAL capsule 100 MG PO (08:06)
[2024-11-15] MEDS: Escitalopram Oxalate 20 MG Tablet PO (08:06)
[2024-11-15] MEDS: Finasteride 5 MG Tablet PO (08:06)
[2024-11-15] MEDS: rifAXIMin 550 MG Tablet PO ×2 (08:06→21:40)
[2024-11-15 13:02] VITALS: BP 91/55; PULSE 68
[2024-11-15] MEDS: Acetaminophen 500 MG Tablet 1000 MG PO ×2 (13:05→21:40)
[2024-11-15] MEDS: 0.9% Saline Lock 10 ML Syringe IV ×2 (13:05→21:45)
[2024-11-15 18:25] VITALS: BP 106/63; PULSE 68
[2024-11-16 03:48] VITALS: PULSE 65; RESP 16; O2SAT 97
[2024-11-16] MEDS: Lactulose 20 GM/30 ML UDC 10 GM PO ×3 (05:25→20:06)
[2024-11-16] MEDS: Acetaminophen 500 MG Tablet 1000 MG PO ×3 (05:28→20:06)
[2024-11-16 08:22] VITALS: BP 122/74; PULSE 86; RESP 17; TEMP 36.8; O2SAT 92
[2024-11-16] MEDS: Tamsulosin HCl 0.4 MG Capsule PO ×2 (08:26→20:06)
[2024-11-16] MEDS: Escitalopram Oxalate 20 MG Tablet PO (08:26)
[2024-11-16] MEDS: Ammonium Lactate 225 gm Bottle 1 APPLIC TOPICAL ×2 (08:26→20:06)
[2024-11-16] MEDS: Midodrine HCl 5 MG Tablet 10 MG PO ×3 (08:26→18:28)
[2024-11-16] MEDS: rifAXIMin 550 MG Tablet PO ×2 (08:27→20:07)
[2024-11-16] MEDS: Finasteride 5 MG Tablet PO (08:27)
[2024-11-16] MEDS: Zinc Sulfate 50 mg zinc (220 mg) ORAL capsule 100 MG PO (08:27)
[2024-11-16] MEDS: 0.9% Saline Lock 10 ML Syringe IV ×2 (08:34→20:16)
--- NOTE | 2024-11-16 10:43 | CASEMGMT ---
Addendum entered by Naz Brown 11/16/24 13:06: SW received return call from dtr and . Answered questions. Explained hospice does not provide 24/7 care, but pt could be bed bound in the home if someone can provide bed level toileting tasks. Hospice aides can assist with bathing needs. Family considered and are requesting referral to [facility] with hospice. SW agreed to place both referrals. If DC needs to be postponed to accommodate smooth transition, Medicare will allow. Family appreciative. - SW sent secure email referral to [facility]. Hospice to notify dtr to schedule meeting. SW sent referral to [facility] via [facility]. Dr and IDT updated. Original Note: Social Work BOAT ENGINES INSTALLER updated this worker that pt's had a significant decline and is x2 assist, considering a lazaro lift. Concerned with DC home tomorrow. SW spoke with Dr. Maldonado about decline and inquired about appropriateness for hospice. Dr agreed. - SW phoned dtr to update on decline. Dtr agreed as she visits almost daily and provide several examples of pt's decline as well. Dtr inquired about how that impacts pt's DC. SW broached topic of hospice, whether at home with support or SNF. Dtr to consider and will be seeing pt's soon, and discuss with her, then contact this worker. SW will remain available to further assist and provide support. Dtr appreciative. aNz Brown COAL MINER COMMUNICATIONS PROGRAMMER
--- NOTE | 2024-11-16 17:42 | TREXTCAR_ITS ---
Diet Diet Order/Speech Therapy: 10/20/24 14:48 Diet: Regular - General Food consistency:: Regular Liquid Consistency:: Regular/Thin Dietary Modifications:: No Added Salt Type of Dietary Supplement:: [place] Breakfast Diet Comments: 8 oz vanilla CIB w/ Breakfast and Dinner Routine Orders/Code Status Code Status: DNRCC-A (No intubation.) DC O2, CPAP, BIPAP needs Home O2 Discharge instructions: No Wound(s) R hand: Wound Type: Skin Tear Dressing Change: Dry Sterile Dressing R FA: Wound Type: Skin Tear Dressing Change: Dry Sterile Dressing L FA: Wound Type: Skin Tear Dressing Change: per order RLQ: Wound Type: Surgical Incision coccyx: Wound Type: Pressure Injury Dressing Change: Star Problem/Diagnosis (1) Syncope: Status: Resolved Code(s): R55 - Syncope and collapse (2) Hematoma of frontal scalp: Status: Resolved Code(s): S00.03XA - Contusion of scalp, initial encounter (3) Debility: Status: Inactive Code(s): R53.81 - Other malaise (4) Abdominal ascites: Status: Acute Code(s): R18.8 - Other ascites (5) Hepatic encephalopathy: Status: Resolved Code(s): K76.82 - Hepatic encephalopathy (6) Low bicarbonate: Status: Resolved Code(s): E87.8 - Other disorders of electrolyte and fluid balance, not elsewhere classified (7) Pancreatic lesion: Status: Acute Code(s): K86.9 - Disease of pancreas, unspecified (8) Hepatic lesion: Status: Acute Code(s): K76.9 - Liver disease, unspecified Plan 84 year old male with below past medical history hospitalized for fall, syncope 2/2 orthostatic hypotension, complicated abdominal ascites requiring paracentesis, hepatic encephalopathy, severe left carotid artery stenosis, admitted to TCU with debility, here for rehabilitation, strengthening, prior to discharge home with . * Debility - PT/OT. * Pain - Tylenol 1000mg q6 prn pain (1-10). * Bowel - Lactulose 10gm tid, Magnesium citrate 300mL daily prn. * Adult immunization - Administer pneumonia vaccine, covid vaccine, flu vaccine as appropriate. * DVT prophylaxis - Lovenox 40mg sc daily. * Depression - Lexapro 10mg daily, stable chronic intermediate manager use, GDR not recommended. * BPH - Finasteride 5mg daily, Tamsulosin 0.4mg bid. * Ascites - Aldactone 50mg daily, Furosemide 20mg daily, paracentesis as needed. * Hepatic encephalopathy - Xifaxan 550mg po bid, Lactulose 10gm tid. * Orthostatic hypotension - Midodrine 5mg tid. * CAD - NTG 0.4mg sl q5m prn. * Restless legs - Mirapex 0.125mg daily prn. * Zinc deficiency - Zinc 100mg daily. Allergies/Procedures Done in Hospital Allergies amoxicillin (From Augmentin) Allergy (Verified 10/14/24 15:10) Other clavulanic acid (From Augmentin) Allergy (Verified 10/14/24 15:10) Other lisinopril Adverse Reaction (Verified 10/14/24 15:10) Other COUGH Procedures: Paracentesis Type of Care/Length of Stay Estimated LOS: Convalescent Care Less Than 30 days Type of Care Needed: Intermediate Rehab Potential: None Prognosis: Poor Additional Orders/Day of Discharge Day of Discharge: 11/17/24 Dietary and Speech Recommendations Dietitian Recommendations/Changes: Continue Regular No Added Salt diet as ordered Continue vanilla CIB w/ B&D for increased nutrition if consumed Follow Up Care Please Follow Up With: Chandrika Cross (GI) When: x2 weeks Please Follow Up With: Adam Lynn When: PCP after DC TCU Discharge Plan Admission Admit Date/Time: 10/20/24 14:36 Primary Reason for Your Visit: Debility. Attending Provider: Kyle Maldonado Chi Primary Care Provider: Adam Lynn Consulting Providers: Brandan Sauceda; Jasvir Singh; Keira Byrd; Beatriz Bajwa; Federica Batres; Yesenia Ponce CORE ASSEMBLY SUPERVISOR; Linda Monahan Instructions Additional Instructions / Restrictions: Discharge home 11/07/2024 with and [facility], [facility] PT/OT/ST/SN. Resident has liver cancer, cirrhosis of liver, is hospice appropriate, refer when patient/family ready. Discharge Orders/Prescriptions Prescriptions: New midodrine 5 mg Tablet 10 mg PO TIDCM 30 Days Qty: 180 0RF acetaminophen 500 mg Tablet 1,000 mg PO Q8 Qty: 0 0RF pramipexole 0.125 mg Tablet 0.125 mg PO PRN PRN (Reason: restless legs) Qty: 0 0RF escitalopram oxalate 10 mg Tablet 20 mg PO DAILY 30 Days Qty: 60 0RF Continued tamsulosin 0.4 mg Capsule 0.4 mg PO BID finasteride 5 mg Tablet 5 mg PO DAILY nitroglycerin 0.4 mg tablet, sublingual 0.4 mg sublingual Q5M Rx Instructions: do not exceed 3 doses per episode zinc sulfate [Orazinc] 50 mg zinc (220 mg) capsule 100 mg PO DAILY lactulose 10 gram/15 mL Solution 10 g PO TID 30 Days Qty: 3785 2RF escitalopram oxalate 20 mg tablet 10 mg PO DAILY 30 Days Qty: 0 0RF Patient Comments: dose reduced recently Xifaxan 550 mg tablet 550 mg PO BID Discontinued pramipexole 0.125 mg tablet 0.125 mg PO QDAY PRN (Reason: restless leg(s)) midodrine 5 mg Tablet 5 mg PO TIDCM 30 Days Qty: 90 0RF furosemide 20 mg Tablet 20 mg PO DAILY 30 Days Qty: 30 1RF spironolactone 50 mg Tablet 50 mg PO DAILY 30 Days Qty: 30 2RF Rx Instructions: Hold for serum potassium more than 5.0 taurine 1,000 mg capsule 1,000 mg PO Q6H Referrals / Follow Up: Adam Lynn MD [Primary Care Provider] - 11/19/24 11:40 am ([phone] Will see the CORE ASSEMBLY SUPERVISOR Cassandra Harris) Disposition Disposition (needs filled in before D/C Order can be placed): Home Health Service (4) Abdominal ascites Qualifiers: Ascites type: other type Qualified Code(s): R18.8 - Other ascites
[2024-11-17] MEDS: Acetaminophen 500 MG Tablet 1000 MG PO (05:45)
[2024-11-17] MEDS: Lactulose 20 GM/30 ML UDC 10 GM PO (05:45)
[2024-11-17 05:51] VITALS: PULSE 60; RESP 16
[2024-11-17 07:56] VITALS: BP 102/66; PULSE 77; RESP 16; TEMP 36.9; O2SAT 94
[2024-11-17] MEDS: Midodrine HCl 5 MG Tablet 10 MG PO (08:15)
--- NOTE | 2024-11-17 08:18 | CASEMGMT ---
Addendum entered by Naz Brown 11/17/24 09:55: [facility] can accept and can admit today. SW phoned dtr to update. Dtr agreeable. SW phoned [facility] for cot transport - scheduled for 1100. SW updated [facility], [facility], dtr and IDT. PASRR completed. Plan: DC 11/17 to [facility], [facility] Addendum entered by Naz Brown 11/17/24 08:21: SW canceled referral to [facility]. Original Note: Social Work Pt and family met with [facility] at 1630 on 11/16. Pt accepted by hospice. SW awaiting outcome from [facility] and if DC date needs postponed. SW to coordinate transport for DC. Will continue to follow. Naz Brown CUTLET MAKER PORK AUDIOMETRIST
[2024-11-17] MEDS: Escitalopram Oxalate 20 MG Tablet PO (08:29)
[2024-11-17] MEDS: Finasteride 5 MG Tablet PO (08:29)
[2024-11-17] MEDS: rifAXIMin 550 MG Tablet PO (08:29)
[2024-11-17] MEDS: Zinc Sulfate 50 mg zinc (220 mg) ORAL capsule 100 MG PO (08:29)
[2024-11-17] MEDS: Ammonium Lactate 225 gm Bottle 1 APPLIC TOPICAL (08:30)
[2024-11-17] MEDS: Tamsulosin HCl 0.4 MG Capsule PO (08:31)
[2024-11-17 10:50] VITALS: PULSE 77; RESP 16
--- NOTE | 2024-11-17 12:01 | NURSING ---
this nurse attempted to call [facility] MULTIPLE TIMES TO GIVE REPORT- SPOKE TO LUIS EDUARDO WHO TRied to transfer this nurse to the correct unit. She states there have been multiple problems with calls coming through on their phone. ezequiel nurse reached out to the subcontract administrator Daysi and left a message so the nurse receiving pt could call for report. at 1135 nurse Velma called to get report. report given at time
== END 2024-11-17 11:05 | disposition hospice, inpatient (51) | DRG 312 ==
PROVIDERS: Internal Medicine Gastroenterology; Admitting Provider Family Medicine Geriatric Medicine; PCP Family Medicine; Referring Provider Family Medicine Geriatric Medicine; Visit Provider Family Medicine Geriatric Medicine
DX: I95.1 Orthostatic hypotension (principal); I81 Portal vein thrombosis; C22.9 Malignant neoplasm of liver, not specified as primary or secondary; R18.8 Other ascites; K76.82 Hepatic encephalopathy; K86.89 Other specified diseases of pancreas; K40.90 Unilateral inguinal hernia, without obstruction or gangrene, not specified as recurrent; E53.8 Deficiency of other specified B group vitamins; E78.00 Pure hypercholesterolemia, unspecified; I65.22 Occlusion and stenosis of left carotid artery; F32.A Depression, unspecified; G25.81 Restless legs syndrome; I77.811 Abdominal aortic ectasia; I10 Essential (primary) hypertension; K74.60 Unspecified cirrhosis of liver; I25.10 Atherosclerotic heart disease of native coronary artery without angina pectoris; W19.XXXD Unspecified fall, subsequent encounter; R25.1 Tremor, unspecified; S00.03XD Contusion of scalp, subsequent encounter; G47.00 Insomnia, unspecified; Z87.891 Personal history of nicotine dependence; N40.0 Benign prostatic hyperplasia without lower urinary tract symptoms; Z79.899 Other long term (current) drug therapy; R29.6 Repeated falls
CPT/HCPCS: 36415; 80048; 82105; 82140; 82962; 85025; 85610; 85730; 86301; 92507; 92523; 97110; 97129; 97130; 97162; 97166; 97530; 97535; 97802; 99406; P9047; A4216

== ENCOUNTER → 2024-10-22 | Outpatient (CLI) | payer MEDICARE, OTHER, SELFPAY ==
--- NOTE | 2024-10-22 | FLU_PTH ---
PATIENT: STARLA GALE LOC: [facility]#:[id number] AGE/SX: 84/M ROOM: RE10/22/[address]: Dr. Yohana Davila MD : [id number] BED: DIS: 10/22/2024 SPEC #: [id number] RECD: 10/22/24 11:18 STATUS: KENNY JORGE #: [id number] SOLA: 10/22/24 00:[address]: Yohana Davila DEPT: CYTOLOGY RECD BY: Donna Barrios ENTERED: 10/22/24 13:59 SP TYPE: Fluid OTHR DR: Dr. Adam Lynn MD Tissues: A - PARACENTESIS FLUID Procedures: Special Stain Group II Surgery Specimen Level IV Cytospin Fluid HEADER OPERATION: Ultrasound guided paracentesis PRE-OP DIAGNOSIS: Ascites TISSUE SUBMITTED: A- Paracentesis fluid for cytology DIAGNOSIS CYTOLOGY A. Paracentesis fluid, ascites: * Rare atypical cells. CYTOLOGY STUDY Slides are reviewed. CYTOLOGY GROSS A. Received is 90 ml of yellow-cloudy fluid labeled with the patient's name and and designated per the requisition as Paracentesis fluid. Submitted for cytology preparation (cytospin x1, cellblock x1). 10/22/2024 CPT: 36307
[2024-10-22 10:25] VITALS: BP 127/61; PULSE 102; RESP 18; TEMP 36.6; O2SAT 96
[2024-10-22 10:30] VITALS: BP 136/86; PULSE 107; RESP 16; O2SAT 97
[2024-10-22 10:45] VITALS: BP 120/48; PULSE 81; RESP 16; O2SAT 96
--- NOTE | 2024-10-22 10:58 | PCM.OPRPT ---
Problems Associated Problem List Diagnoses (1) Abdominal ascites: (2) History of cirrhosis: Multi Select Codes Radiology Radiology US Procedures: 35712 Paracentesis Operative Report (Standard) Operative Information Date of Procedure: 10/22/24 Pre-Operative Diagnosis: Ascites Post-Operative Diagnosis: Ascites Surgery/Procedure Performed: Ultrasound-guided paracentesis consulting sales manager: No Type of Anesthesia: Local Procedure Start Time: 10:27 Procedure Stop Time: 10:53 Select all DRAINS/GRAFTS/IMPLANTS that apply: None Estimated Blood Loss: 0 Specimen collected: Yes Description of specimen(s) removed: 100 mL of cloudy yellow fluid Description of surgery: PROCEDURE: Ultrasound guided paracentesis ORDERING PROVIDER: Dr. Davila INDICATION: Male, 84 years old. Ascites. PROVIDER: CRISTINE Canela TECHNIQUE: The risks, benefits, and alternatives to the procedure were explained to the patient. The specific risks of bleeding, infection, and damage to bowel were detailed and accepted. Witnessed informed consent was obtained. The patient is currently admitted as an inpatient. Coagulation studies were reviewed by myself and Dr. Aguilar prior to beginning the procedure. His morning dose of Lovenox was not administered. The abdomen was ultrasonographically surveyed. An appropriate pocket of fluid was identified in the left lower quadrant. The skin was prepped with chlorhexidine and sterile field established. 2% lidocaine was used for local anesthetic. Using ultrasound guidance, the peritoneal cavity was accessed with a 5-Micronesian paracentesis needle/catheter system. The trocar was removed. A total of 4150 ml of cloudy yellow colored fluid was removed from the peritoneal cavity. A sample was sent to the laboratory for diagnostic purposes. The catheter was removed. Hemostasis was readily achieved and a sterile dressing was applied. There was no oozing noted at the access site. The procedure was well tolerated with no immediate complications. The procedure was proctored by interventional radiologist Dr. Aguilar. The patient was transported back to his inpatient bed. IMPRESSION: Successful ultrasound guided paracentesis with left lower quadrant access site. Surgical Findings: None Complications Complications: No
[2024-10-22] MEDS: Lidocaine 2% (20 ml mdv) 20 ML Vial INFILT (11:21)
[2024-10-22 11:25] LABS: Pathologist Comment/Body Fluid May follow
[2024-10-22 11:55] LABS: Body Fluid Mononuclear WBC # 0.075 10^3/uL; Body Fluid Mononuclear WBC % 76.5 %; Body Fluid Polynuclear WBC # 0.023 10^3/uL; Body Fluid Polynuclear WBC % 23.5 %; Body Fluid Total Cells Counted 0.119 10^3/ul; White Blood Count/Body Fluid 0.098 10^3/uL
[2024-10-22 14:20] LABS: Auto B Fluid Analyzer BKGD Ct COUNTS W/IN LIMITS (W/IN LIMITS); Source- Body Fluid PARACENTESIS
[2024-10-22 14:21] LABS: Appearance/Body Fluid CLOUDY; Color/Body Fluid YELLOW
[2024-10-22 14:24] LABS: Red Cell Count/Body Fluid 246 /mm3
[2024-10-22 14:37] LABS: Lymphocytes 29 %; Monocytes 10 %; Neutrophil (Segs) 33 %
[2024-10-22 14:38] LABS: Body Fluid QC Type(s) BF1Q; Macrophages 28 %
== END | disposition home or self-care (01) ==
PROVIDERS: PCP Family Medicine; Referring Provider Internal Medicine; Visit Provider Internal Medicine
DX: R18.8 Other ascites (principal)
CPT/HCPCS: 49083; 87070; 87075; 87205; 88108; 88305; 88313; 89050

== ENCOUNTER → 2024-10-26 | Outpatient (CLI) | payer MEDICARE, OTHER, SELFPAY ==
--- NOTE | 2024-10-26 10:00 | CT_ITS ---
PROCEDURE: ABDOMEN/PELVIS WITH CONTRAST 10/26/2024 REASON FOR EXAM: SEVERE LEFT GROIN PAIN/ EVALUATE FOR HERNIA TECHNIQUE: CT abdomen and pelvis was performed with IV contrast. Multiplanar reformats were generated. PATIENT PREPARATION: Per protocol ORAL CONTRAST TYPE: Administered, however a type and volume information was not provided. CONTRAST: Isovue-300 VOLUME: 87 mL One or more dose reduction techniques were used (e.g., Automated exposure control, adjustment of the mA and/or kV according to patient size, use of iterative reconstruction technique. RADIATION DOSE SUMMARY: CTDlvol: 13.3+ 17.15 mGy DLP: 975.28 mGycm COMPARISON: 10/14/2024 FINDINGS: Lung bases: Atelectasis/scarring. Multivessel coronary atherosclerosis and/or stents. Aortic annular calcification. Paraesophageal varices. Small hiatal hernia. Trace aortic annular calcification. Liver: Cirrhosis. Irregular indeterminate 2.0 cm lesion anteriorly, vaguely geographic on coronal and sagittal reformats. Spleen: Splenomegaly, 14.8 cm. Gallbladder: Cholelithiasis.. Pancreas: 14 mm hypodense possibly cystic lesion in the pancreatic tail. Additional tiny hypodensities also present. Mildly prominent main pancreatic duct, 4 mm at the pancreatic head/neck. Adrenals: Unremarkable. Kidneys: Cysts and additional tiny hypodensities too small to characterize, likely cysts. Multifocal cortical scarring on the LEFT with asymmetric LEFT renal atrophy. Bowel: Distended stomach. Distended small and large bowel loops without maik dilatation. No maik definite inflammation allowing for the limitation of adjacent ascites. Minimal diverticulosis.. Normal caliber appendix. Lymph nodes: Unremarkable. Vasculature: Perisplenic and gastrohepatic varices with splenorenal shunt. Tiny recanalized umbilical vein. Advanced atherosclerosis. Multifocal dilatation of the infrarenal abdominal aorta to maximum 2.9 x 2.9 cm orthogonal to the long axis. Patent portal vein. Diminutive caliber of the intrahepatic and infra/supra hepatic IVC, uncertain significance. IVC is not well opacified below the level of the renal veins. Hepatic veins are similarly not well opacified. Peritoneum: Moderate to large volume ascites. Similar mild mesenteric edema potentially related to 3rd spacing. Bladder: Underdistended and suboptimally evaluated, grossly unremarkable. Reproductive Organs: Suspect inguinal location of the RIGHT testicle, similar to prior. Body Wall: Small LEFT inguinal hernia containing ascites. Nonspecific body wall edema greatest along the hips and visualized upper extremities laterally, potentially related to 3rd spacing. Tiny fat containing umbilical hernia. Bones: Multilevel spondylosis. Mild lumbar levoscoliosis.. CT/Abdomen/Pelvis WITH Contrast IMPRESSION: 1. Small LEFT inguinal hernia containing ascites. 2. Cirrhosis with sequela of portal hypertension again including moderate to la rge volume ascites. 3. Indeterminate 2.0 cm hepatic lesion could be perfusional given cirrhosis and increased risk of HCC, this warrants outpatient multiphase hepatic protocol MRI with and without contrast and with MRCP given t he below unless there is a contraindication, in which case multiphase hepatic protocol CT with and without contrast could be pe rformed. 4. Pancreatic hypodensities up to 1.4 cm, possible cystic neoplasm such as IPMN however this is not definite. Borderline mild main pancreatic ductal dilatation. Recommend attention on above recommended MR I which showed additionally include MRCP. 5. Abdominal aortic ectasia to 2.9 cm. Recommend follow-up in 5 years per 2013 ACR recommendations. 6. Additional description as above. Reading Location: [id number]
== END | disposition home or self-care (01) ==
PROVIDERS: PCP Family Medicine; Referring Provider Family Medicine Geriatric Medicine; Visit Provider Family Medicine Geriatric Medicine
DX: K40.90 Unilateral inguinal hernia, without obstruction or gangrene, not specified as recurrent (principal)
CPT/HCPCS: 74177; Q9967

== ENCOUNTER 2024-10-27 14:01 | Outpatient (CLI) | payer MEDICARE, OTHER, SELFPAY ==
--- NOTE | 2024-10-27 14:30 | MRI_ITS ---
PROCEDURE: MRI ABD WITH AND W/O CONTRAST WITH MRCP 10/27/2024 REASON FOR EXAM: HEPATIC LESION TECHNIQUE: Multiplanar, multisequence MRI of the abdomen without and with intravenous gadolinium-based contrast, including MRCP with rotating MIP/3D reconstructions. CONTRAST: Clariscan VOLUME: 15mL COMPARISON: 10/26/2024 FINDINGS: Variable overall [id number] motion limitation due to respiratory motion secondary to reported patient inability to suspend respiration. Some sequences are severely motion degraded. Exam additionally limited by lack of a true late arterial phase of postcontrast imaging, with imaging performed in the early arterial phase and subsequently in the hepatic venous and slightly more delayed phases. Liver: Cirrhosis. The irregular vaguely geographic lesion of concern in the anterior subcapsular liver at the junction of segments IV and I/II measures roughly 2.9 x 1.9 cm and demonstrates T1 hypointensity, T2 isointensity, and hypoenhancement/non enhancement across all phases of postcontrast imaging (series 3.2, image 7). No associated restricted diffusion, with slight signal loss on out of phase imaging. Components of hypoenhancement/non enhancement appear vaguely tubular and branching on some images, suggesting intrahepatic portal venous thrombus. Surrounding geographic hyperenhancement extends from the region into the LEFT lobe, likely perfusional. On correlation with previous CT, this demonstrates additional lesion in the slightly more lateral and inferior RIGHT lobe segment V measures 1.1 x 1.0 cm with arterial phase hyperenhancement, T1/T2 isointensity, and trace associated restricted diffusion without washout, LI-RADS 3 (series 1701 image 38). Spleen: Splenomegaly, 14.9 cm. Gallbladder: Cholelithiasis.. Mild dilatation of the CBD to 9 mm. No definite choledocholithiasis allowing for considerable motion artifact. Pancreas: Pancreatic cystic foci, largest lobulated in the pancreatic tail and measuring 2.6 x 1.6 x 1.4 cm with a few internal septations. No nodular enhancing component. Difficult to establish presence or absence of communication with the main pancreatic duct given motion. Nondilated mid and distal pancreatic duct. Mild dilatation of the proximal pancreatic duct to 6 mm. Additional smaller cystic foci in the pancreatic body and tail are annotated on series 15. Adrenals: Grossly unremarkable. Kidneys: Redemonstrated multifocal cortical scarring on the LEFT with asymmetric LEFT renal atrophy. Bilateral cysts. Tiny subcentimeter T1 bright focus in the LEFT kidney is too small to definitively characterize given motion artifact on postcontrast imaging but probably reflects a hemorrhagic/proteinaceous cyst although technically indeterminate. Bowel: Grossly unremarkable, better evaluated previously. Lymph nodes: Unremarkable. Vasculature: As above. Paraesophageal and gastrohepatic/perisplenic varices with splenorenal shunt as before. Grossly patent RIGHT and LEFT as well as main portal vein, splenic vein, SMV although evaluation is limited by motion. Atherosclerosis. Multifocal aortic ectasia better evaluated previously. Peritoneum: Decreased now probably [id number] volume ascites. Body Wall: Body wall edema as before. Bones: Better evaluated previously.. Other: Bibasilar atelectasis/scarring as on CT. MRI/MRI Abd WITH and W/O Contrast IMPRESSION: 1. Considerably motion limited exam. Patient is reportedly unable to suspend r espiration. Note that in light of this, multiphase hepatic protocol CT with and without contrast is suggested for furth er follow-up, as it is less susceptible to motion artifact. 2. Cirrhosis with sequela of portal hypertension as detailed. Decreased now pr obably small/moderate ascites following paracentesis. 3. Index 2.9 cm hepatic lesion at the junction of hepatic segments IV and I/II probably reflects intrahepatic portal venous thrombus given the constellation. There are surrounding associated perfusional changes extending into the LEFT lobe. The RIGHT and LEFT as well as the main portal vein remain grossly patent within limitatio ns of motion. 4. Additional 1.1 cm LI-RADS 3 lesion in segment V. Recommend clinical follow-u p. 5. Pancreatic cystic lesions up to 2.6 cm in the pancreatic tail, suboptimally evaluated given the degree of motion, possible cystic neoplasm such as IPMN although communication with the main pancreatic du ct can not be definitively confirmed in light of motion. Clinical follow-up is recommended. Given size greater than 2.5 cm, re commend GI consultation for management and consideration of EUS with FNA. Remaining lesions should at a minimum be follow ed by imaging. Nondilated mid and distal main pancreatic duct with mild dilatation proximally. 6. Cholelithiasis and mild biliary dilatation without definite choledocholithia sis or other obstructing process allowing for considerable motion artifact. This could conceivably reflect ampullary stenosi s. Recommend attention on follow-up. 7. Additional description as above and as detailed on recent CT. Reading Location: [id number]
== END 2024-10-27 23:59 | disposition home or self-care (01) ==
PROVIDERS: PCP Family Medicine; Referring Provider Family Medicine Geriatric Medicine; Visit Provider Family Medicine Geriatric Medicine
DX: R10.32 Left lower quadrant pain (principal); K76.9 Liver disease, unspecified
CPT/HCPCS: 74183; A9575

== ENCOUNTER → 2024-10-27 | Outpatient (CLI) | payer MEDICARE, OTHER, SELFPAY ==
--- NOTE | 2024-10-27 09:38 | US_ITS ---
EXAM: ULTRASOUND-GUIDED DIAGNOSTIC PARACENTESIS CLINICAL HISTORY: ASCITES. COMPARISON: MOST RECENT PROCEDURE DATED 10/08/2024. TECHNIQUE: Informed consent was obtained. The patient was prepped and draped in the usual sterile fashion. Anesthetic: Lidocaine 2% was utilized for local anesthesia. Catheter: 5 F, 10 cm in length [id number] Centesis Catheter was inserted into the fluid collection. Amount of fluid drained: 6300 mL. Color of fluid: Cloudy yellow. Fluid disposition: A proximally 50 mL was sent to the laboratory for testing. FINDINGS: Marked ascites. US/Paracentesis with US IMPRESSION: SUCCESSFUL PARACENTESIS. PATIENT TOLERATED THE PROCEDURE WELL. THANK YOU FOR THIS REFERRAL. Reading Location: [place] [id number]
--- NOTE | 2024-10-27 13:44 | FLU_PTH ---
PATIENT: STARLA GALE LOC: [facility]#:[id number] AGE/SX: 84/M ROOM: RE10/27/[address]: Dr. Yohana Davila MD : 1940 BED: DIS: 10/27/2024 SPEC #: [id number] RECD: 10/27/24 14:32 STATUS: KENNY JORGE #: [id number] SOLA: 10/27/24 13:[address]: Yohana Davila DEPT: CYTOLOGY RECD BY: Donna Barrios ENTERED: 10/28/24 08:44 SP TYPE: Fluid OTHR DR: Dr. Adam Lynn MD Tissues: A - PARACENTESIS FLUID Procedures: Special Stain Group II Surgery Specimen Level IV Cytospin Fluid HEADER OPERATION: Ultrasound guided paracentesis PRE-OP DIAGNOSIS: Ascites TISSUE SUBMITTED: A- Paracentesis fluid for cytology DIAGNOSIS CYTOLOGY A. Paracentesis fluid: * No malignant cells are identified A. CYTOLOGY STUDY Slides are reviewed. CYTOLOGY GROSS A. Received is 80 ml of [id number] fluid labeled with the patient's name and and designated per the requisition as Paracentesis fluid. Submitted for cytology and cellblock preparation. 10/28/2024 CPT: 38432
[2024-10-27 13:45] VITALS: BP 116/63; PULSE 68; RESP 18; TEMP 36.3; O2SAT 98
[2024-10-27] MEDS: Lidocaine 2% (20 ml mdv) 20 ML Vial INFILT (13:48)
[2024-10-27 14:00] VITALS: BP 109/60; PULSE 63; RESP 16; O2SAT 97
[2024-10-27 14:15] VITALS: BP 103/40; PULSE 73; RESP 18; O2SAT 95
[2024-10-27 14:24] VITALS: BP 105/51; PULSE 67; RESP 18; O2SAT 96
[2024-10-27 14:37] LABS: Pathologist Comment/Body Fluid May follow
[2024-10-27 18:14] LABS: Appearance/Body Fluid CLOUDY; Auto B Fluid Analyzer BKGD Ct COUNTS W/IN LIMITS (W/IN LIMITS); Body Fluid Total Cells Counted 0.066 10^3/ul; Color/Body Fluid LT YEL; Red Cell Count/Body Fluid 515 /mm3; Source- Body Fluid PARACENTESIS
[2024-10-27 18:15] LABS: Body Fluid Mononuclear WBC % 72.7 %; Body Fluid Polynuclear WBC # 0.015 10^3/uL; Body Fluid Polynuclear WBC % 27.3 %; White Blood Count/Body Fluid 0.055 10^3/uL
[2024-10-27 18:33] LABS: Lymphocytes 15 %; Macrophages 41 %; Monocytes 5 %; Neutrophil (Segs) 35 %
[2024-10-27 18:34] LABS: Body Fluid QC Type(s) BF1,BF2; Mesothelial Cells 4 %
== END | disposition home or self-care (01) ==
PROVIDERS: PCP Family Medicine; Referring Provider Internal Medicine; Visit Provider Internal Medicine
DX: R18.8 Other ascites (principal)
CPT/HCPCS: 49083; 87070; 87075; 87205; 88108; 88305; 88313; 89050

== ENCOUNTER → 2024-11-05 | Outpatient (CLI) | payer MEDICARE, OTHER, SELFPAY ==
[2024-11-05 10:00] VITALS: BP 126/71; PULSE 76; RESP 18; TEMP 35.8; O2SAT 99
--- NOTE | 2024-11-05 10:05 | FLU_PTH ---
PATIENT: STARLA GALE LOC: [facility]#:[id number] AGE/SX: 84/M ROOM: RE11/05/[address]: Dr. Yohana Davila MD : 1940 BED: DIS: 11/05/2024 SPEC #: [id number] RECD: 11/05/24 10:55 STATUS: KENNY RELu #: [id number] SOLA: 11/05/24 10:[address]: Yohana Davila DEPT: CYTOLOGY RECD BY: Donna Barrios ENTERED: 11/05/24 11:42 SP TYPE: Fluid OTHR DR: Dr. Adam Lynn MD Tissues: A - PARACENTESIS FLUID Procedures: Special Stain Group II Surgery Specimen Level IV Cytospin Fluid HEADER OPERATION: Paracentesis fluid PRE-OP DIAGNOSIS: Ascites TISSUE SUBMITTED: A- Paracentesis fluid for cytology DIAGNOSIS CYTOLOGY A. Paracentesis fluid: * No malignant cells are identified CYTOLOGY STUDY Slides are reviewed. CYTOLOGY GROSS A. Received is 90 ml of [id number] fluid labeled with the patient's name and and designated per the requisition as Paracentesis fluid. Submitted for cytology and cell block preparation. 11/05/2024 CPT: 43802
[2024-11-05] MEDS: Lidocaine 2% (20 ml mdv) 20 ML Vial INFILT (10:10)
[2024-11-05 10:12] VITALS: BP 106/65; PULSE 70; RESP 18; O2SAT 98
[2024-11-05 10:15] VITALS: BP 115/57; PULSE 62; RESP 18; O2SAT 98
[2024-11-05 10:30] VITALS: BP 117/59; PULSE 61; RESP 18; O2SAT 99
[2024-11-05 10:33] VITALS: BP 116/54; PULSE 70; RESP 18; TEMP 36.1; O2SAT 98
--- NOTE | 2024-11-05 10:43 | PCM.OPRPT ---
Problems Associated Problem List Diagnoses (1) Abdominal ascites: Multi Select Codes Radiology Radiology US Procedures: 77764 Paracentesis Operative Report (Standard) Operative Information Date of Procedure: 11/05/24 Pre-Operative Diagnosis: Abdominal ascites Post-Operative Diagnosis: Abdominal ascites Surgery/Procedure Performed: Ultrasound-guided paracentesis search engine optimization manager: No Type of Anesthesia: Local Procedure Start Time: 10:05 Procedure Stop Time: 10:34 Select all DRAINS/GRAFTS/IMPLANTS that apply: None Estimated Blood Loss: 0 Specimen collected: Yes Description of specimen(s) removed: 100 mL of cloudy yellow fluid Description of surgery: PROCEDURE: Ultrasound guided paracentesis ORDERING PROVIDER: Dr. Davila INDICATION: Male, 84 years old. Abdominal ascites. PROVIDER: CRISTINE Canela TECHNIQUE: The risks, benefits, and alternatives to the procedure were explained to the patient. The specific risks of bleeding, infection, and damage to bowel were detailed and accepted. Witnessed informed consent was obtained. He is not currently being treated with any anticoagulant medications. The abdomen was ultrasonographically surveyed. An appropriate pocket of fluid was identified in the left upper quadrant of the abdomen. The skin was prepped with chlorhexidine and sterile field established. 2% lidocaine was used for local anesthetic. Using ultrasound guidance, the peritoneal cavity was accessed with a 5-Faroese paracentesis needle/catheter system. The trocar was removed. A total of 6050 ml of cloudy yellow colored fluid was removed from the peritoneal cavity. A sample was sent to the lab for diagnostic purposes. The catheter was removed and a sterile dressing was applied. The procedure was well tolerated. There were no immediate complications. The procedure was proctored by interventional radiologist Dr. Aguilar. The patient was transported back to [facility]. IMPRESSION: Successful ultrasound guided paracentesis with left upper quadrant access site. Surgical Findings: None Complications Complications: No
[2024-11-05 11:35] LABS: Body Fluid Mononuclear WBC # 0.047 10^3/uL; Body Fluid Mononuclear WBC % 65.3 %; Body Fluid Polynuclear WBC # 0.025 10^3/uL; Body Fluid Polynuclear WBC % 34.7 %; Body Fluid Total Cells Counted 0.099 10^3/ul; White Blood Count/Body Fluid 0.072 10^3/uL
[2024-11-05 11:38] LABS: Appearance/Body Fluid TURBID; Auto B Fluid Analyzer BKGD Ct COUNTS W/IN LIMITS (W/IN LIMITS); Color/Body Fluid YELLOW; Source- Body Fluid ASCITES FLUID
[2024-11-05 12:55] LABS: Lymphocytes 9 %; Macrophages 57 %; Neutrophil (Segs) 27 %; Other Cell Type/BF 7 %
[2024-11-05 13:05] LABS: Body Fluid QC Type(s) BF1Q,BF2Q; Red Cell Count/Body Fluid 760 /mm3
[2024-11-06 15:03] LABS: Pathologist Comment/Body Fluid Reviewed
== END | disposition skilled nursing facility (03) ==
PROVIDERS: PCP Family Medicine; Referring Provider Internal Medicine; Visit Provider Internal Medicine
DX: R18.8 Other ascites (principal)
CPT/HCPCS: 49083; 87070; 87075; 87205; 88108; 88305; 88313; 89050

== ENCOUNTER 2024-11-12 06:22 | Outpatient (CLI) | payer MEDICARE, OTHER, SELFPAY ==
[2024-11-12 09:34] VITALS: BP 121/70; PULSE 70; RESP 16; TEMP 36.1; O2SAT 97
[2024-11-12] MEDS: Lidocaine 2% (20 ml mdv) 20 ML Vial INFILT (09:44)
[2024-11-12 09:45] VITALS: BP 118/64; PULSE 64; RESP 16; O2SAT 97
--- NOTE | 2024-11-12 09:47 | FLU_PTH ---
PATIENT: STARLA GALE LOC: [facility] [place]#:[id number] AGE/SX: 84/M ROOM: RE11/12/[address]: Dr. Yohana Davila MD : 1940 BED: DIS: 11/12/2024 SPEC #: [id number] RECD: 11/12/24 10:32 STATUS: KENNY RELu #: [id number] SOLA: 11/12/24 09:[address]: Yohana Davlia DEPT: CYTOLOGY RECD BY: Jenni Burnette ENTERED: 11/12/24 14:19 SP TYPE: Fluid OTHR DR: Dr. Adam Lynn MD Tissues: PARACENTESIS FLUID Procedures: Special Stain Group II Surgery Specimen Level IV Cytospin Fluid HEADER OPERATION: Ultrasound guided paracentesis PRE-OP DIAGNOSIS: Ascites TISSUE SUBMITTED: A- Paracentesis fluid for cytology DIAGNOSIS CYTOLOGY A. Paracentesis fluid: * No malignant cells are identified CYTOLOGY STUDY Slides are reviewed. CYTOLOGY GROSS A. Received is 85 ml of [id number] fluid labeled with the patient's name and and designated per the requisition as Paracentesis fluid. Submitted for cytology and cell block preparation. 11/12/2024 CPT: [id number]
[2024-11-12 10:00] VITALS: BP 114/58; PULSE 57; RESP 16; O2SAT 98
[2024-11-12 10:07] VITALS: BP 107/50; PULSE 60; RESP 16; O2SAT 97
--- NOTE | 2024-11-12 10:12 | OP.PCM_ITS ---
Problems Associated Problem List Diagnoses (1) Abdominal ascites: Multi Select Codes Radiology Radiology US Procedures: 87014 Paracentesis Operative Report (Standard) Operative Information Date of Procedure: 11/12/24 Pre-Operative Diagnosis: Abdominal ascites Post-Operative Diagnosis: Abdominal ascites Surgery/Procedure Performed: Ultrasound-guided paracentesis bilingual medical assistant: No Type of Anesthesia: Local Procedure Start Time: 09:40 Procedure Stop Time: 10:07 Select all DRAINS/GRAFTS/IMPLANTS that apply: None Estimated Blood Loss: 0 Specimen collected: Yes Description of specimen(s) removed: 100 mL of cloudy yellow fluid Description of surgery: PROCEDURE: Ultrasound guided paracentesis ORDERING PROVIDER: Dr. Davila INDICATION: Male, 84 years old. Abdominal ascites. PROVIDER: CRISTINE Canela TECHNIQUE: The risks, benefits, and alternatives to the procedure were explained to the patient. The specific risks of bleeding, infection, and damage to bowel were detailed and accepted. Witnessed informed consent was obtained. He is not on any anticoagulation medications. The abdomen was ultrasonographically surveyed. An appropriate pocket of fluid was identified in the right upper quadrant. The skin was prepped with chlorhexidine and sterile field established. 2% lidocaine was used for local anesthetic. Using ultrasound guidance, the peritoneal cavity was accessed with a 5-Mongolian paracentesis needle/catheter system. The trocar was removed. A total of 5350 ml of cloudy yellow colored fluid was removed from the peritoneal cavity. A sample was sent to the lab for diagnostic purposes. The catheter was removed and a sterile dressing was applied. The procedure was well tolerated. There were no immediate complications. The procedure was proctored by interventional radiologist Dr. Aguilar. The patient returned to his room in [facility]. IMPRESSION: Successful ultrasound guided paracentesis with right upper quadrant access site. Surgical Findings: None Complications Complications: No
[2024-11-12 12:18] LABS: Body Fluid Mononuclear WBC # 0.042 10^3/uL; Body Fluid Mononuclear WBC % 66.7 %; Body Fluid Polynuclear WBC # 0.021 10^3/uL; Body Fluid Polynuclear WBC % 33.3 %; Body Fluid Total Cells Counted 0.087 10^3/ul; White Blood Count/Body Fluid 0.063 10^3/uL
[2024-11-12 12:34] LABS: Auto B Fluid Analyzer BKGD Ct COUNTS W/IN LIMITS (W/IN LIMITS); Source- Body Fluid PARACENTESIS
[2024-11-12 12:35] LABS: Appearance/Body Fluid CLOUDY; Color/Body Fluid YELLOW
[2024-11-12 13:14] LABS: Red Cell Count/Body Fluid 241 /mm3
[2024-11-12 13:35] LABS: Lymphocytes 23 %; Macrophages 7 %; Mesothelial Cells 13 %; Monocytes 27 %; Neutrophil (Segs) 21 %; Other Cell Type/BF 9 %
[2024-11-12 13:36] LABS: Body Fluid QC Type(s) BF1Q
[2024-11-13 11:23] LABS: Pathologist Comment/Body Fluid Reviewed
== END 2024-11-12 23:59 | disposition home or self-care (01) ==
PROVIDERS: PCP Family Medicine; Referring Provider Internal Medicine; Visit Provider Internal Medicine
DX: R18.8 Other ascites (principal)
CPT/HCPCS: 49083; 87070; 87075; 87205; 88108; 88305; 88313; 89050

== ENCOUNTER → 2024-11-18 | Outpatient (CLI) | payer MEDICARE, OTHER, SELFPAY ==
[2024-11-18 10:18] VITALS: BP 123/78; PULSE 80; RESP 16; O2SAT 96
[2024-11-18] MEDS: Lidocaine 2% (20 ml mdv) 20 ML Vial INFILT (10:20)
[2024-11-18 10:30] VITALS: BP 100/56; PULSE 77; RESP 16; O2SAT 97
[2024-11-18 10:42] VITALS: BP 107/63; PULSE 75; RESP 16; O2SAT 96
--- NOTE | 2024-11-18 10:45 | PCM.OPRPT ---
Procedures Hospitalists Procedures: Other Procedure - See Report (US Guided Paracentesis) Operative Report (Standard) Operative Information Date of Procedure: 11/18/24 Pre-Operative Diagnosis: Ascites Post-Operative Diagnosis: Ascites Surgery/Procedure Performed: Paracentesis drilling field professional: No Type of Anesthesia: Local Procedure Start Time: 10:18 Procedure Stop Time: 10:43 Select all DRAINS/GRAFTS/IMPLANTS that apply: None Estimated Blood Loss: 0 Specimen collected: No Description of surgery: PROCEDURE: Ultrasound guided paracentesis ORDERING PROVIDER: Dr. Davila INDICATION: Male, 84 years old. Abdominal ascites. PROVIDER: Christal Post DO TECHNIQUE: The risks, benefits, and alternatives to the procedure were explained to the patient. The specific risks of bleeding, infection, and damage to bowel were detailed and accepted. Witnessed informed consent was obtained. He is not on any anticoagulation medications. Time out was performed. The abdomen was ultrasonographically surveyed. An appropriate pocket of fluid was identified in the right upper quadrant. The skin was prepped with chlorhexidine and sterile field established. 2% lidocaine was used for local anesthetic. Using ultrasound guidance, the peritoneal cavity was accessed with a 5-Serbian paracentesis needle/catheter system. The trocar was removed. A total of 3550 ml of cloudy yellow colored fluid was removed from the peritoneal cavity. The catheter was removed and a sterile dressing was applied. The procedure was well tolerated. There were no immediate complications. Surgical Findings: IMPRESSION: Successful ultrasound guided paracentesis Surgical Findings: None Complications Complications: No
== END | disposition home or self-care (01) ==
PROVIDERS: PCP Family Medicine; Referring Provider Internal Medicine; Visit Provider Internal Medicine
DX: R18.8 Other ascites (principal)
CPT/HCPCS: 49083

== ENCOUNTER 2024-11-26 10:53 | Day surgery (SDC) | payer OTHER, MEDICARE, SELFPAY ==
--- NOTE | 2024-11-20 10:54 | PAT.ANE_ITS ---
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 When Was Last Pacemaker Check QUESTION #4 FULL TEXT: You/Your Family Experience fever (hyperthermia) with Anesthesia Last Oral Intake Last Oral intake: Last Oral Intake NPO since Meds taken in AM with sips of water? Meds patient instructed to take am of surgery PONV PONV - production technician: PONV - production technician Female No 11/20/24 09:56 HX of Motion Sickness No 11/20/24 09:56 HX of N/V After Surgery No 11/20/24 09:56 Non-Smoker Yes 11/20/24 09:56 Duration of Surgery greater No 11/20/24 09:56 than 60 minutes Number of Risk Factors 1 11/20/24 09:56 PONV Score Low Risk 11/20/24 09:56 Height & Weight Height & Weight: Anesthesia: Height & Weight Height 5 ft 2 in 11/11/24 14:44 Respiratory Assessment Respiratory Assessment - production technician: Respiratory Tract Infection Hx - production technician Hx Respiratory Tract Infection No 11/20/24 09:56 STOP Sleep Apnea STOP Sleep Apnea - production technician: STOP Sleep Apnea - production technician Hx Hypertension Yes 11/20/24 09:56 Hx Sleep Apnea No 11/20/24 09:56 CPAP No 10/20/24 14:51 BIPAP No 10/20/24 14:51 Do you snore loudly (louder No 11/20/24 09:56 than talking or can be heard Do you often feel tired/ No 11/20/24 09:56 fatigued/ sleepy during daytime? Has anyone observed you stop No 11/20/24 09:56 breathing during sleep? STOP Results Negative 11/20/24 09:56 QUESTION #5 FULL TEXT : Do you snore loudly (louder than talking or can be heard through closed doors)? 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 Specify any problems Hx of Preganancy in last 3 N/A 11/20/24 09:56 Months Nurse Filling Out Transfusion [facility] 11/20/24 09:56 & Questions: Date: 11/20/24 11/20/24 09:56 Time: 10:02 11/20/24 09:56 Patient unable to answer at this time (ie. confused, unrespo /Reproduction History /Reproductive History - production technician: /Reproductive Hx- production technician Hx Now Gestational Age (in weeks): EDC: Hx Hx Para Hx Section SAB PFSH Medical History Wears glasses Anxiety Arthritis Walker as ambulation aid History of edema History of echocardiogram Debility Abdominal ascites Wears dentures Bruising Prostate disease Restless legs History of diverticulitis Former smoker History of stress test Anemia due to gastrointestinal blood loss Bleeding external hemorrhoids Pilonidal cyst Macular degeneration Depression BPH (benign prostatic hyperplasia) High cholesterol Hypertension History of COVID-19 Hx of fracture of rib Home Medications ?Medication ?Instructions ?Recorded ?Last Taken ?Type tamsulosin 0.4 mg capsule 0.4 mg PO BID BPH 03/09/21 0 10/14/24 History nitroglycerin 0.4 mg sublingual 0.4 mg sublingual Q5M chest pain 08/01/23 Unknown History tablet rifaximin 550 mg tablet (Xifaxan) 550 mg PO BID liver 10/08/24 10/14/24 History zinc sulfate 50 mg zinc (220 mg) 100 mg PO DAILY zinc supplement 10/14/24 10/14/24 History capsule (Orazinc) acetaminophen 500 mg tablet 1,000 mg (2 x 500 mg) PO Q 8 #0 tabs 11/12/24 Unknown Rx pramipexole 0.125 mg tablet 0.125 mg PO PRN PRN restle ss legs 11/12/24 Unknown Rx #0 tabs lorazepam 0.5 mg tablet (Ativan) 0.5 mg PO Q4H PRN anx iety 11/20/24 Unknown History ondansetron 4 mg disintegrating 4 mg PO Q8H PRN PRN na usea 11/20/24 Unknown History tablet oxycodone 5 mg tablet 5 mg PO Q6H PRN PRN pain 09/15 Unknown History Allergy/AdvReac Type Severity Reaction Status Date / Time amoxicillin (From Augmentin) Allergy Other Verified 11/20/24 09:56 clavulanic acid (From Allergy Other Verified 11/20/24 09:56 Augmentin) lisinopril AdvReac Other Verified 11/20/24 09:56 Family History Mother Cancer Sister Cancer Other Heart disease Surgical History History of cataract surgery History of excision of pilonidal cyst History of herniorrhaphy Social History household members: spouse Smoking Status: Former smoker alcohol intake: current alcohol intake frequency: other substance use type: does not use Audit: Pertinent Findings Pertinent Findings EKG Perinent findings: 3 09/19/2024. Sinus bradycardia 42 bpm with premature supraventricular complexes. Echo (EF%) pertinent findings: 10/14/2024. EF 60%. Pulmonary function results/spirometer pertinent findings: Chest x-ray 08/06/2024. Mild linear atelectasis of the right lung base. Elevation of right hemidiaphragm. Additional pertinent findings: Carotid duplex 10/14/2024. Severe greater than 70% stenosis left extracranial internal carotid. Mild less than 50% stenosis right extracranial internal carotid. Vertebral arteries patent. Recommendation Anesthesia Recommendation Anesthesia recommendation: OPTIMIZED for anesthesia
[2024-11-26] VITALS (12 sets, daily range): BP systolic 99–162; BP diastolic 53–83; PULSE 45–87; RESP 16–18; TEMP 36.8–36.9; O2SAT 96–100; BMI 27.4
[2024-11-26] MEDS: Lactated Ringers 1,000 ML 15 ML IV (11:30)
--- NOTE | 2024-11-26 11:42 | PRE.ANES_ITS ---
ASA Classification* ASA Classification ASA Classification: 3 Assessment & Plan Anesthesia* Anesthesia Assessment Anesthesia Assessment: Discussed sedation and/or anesthesia options, risks, benefits, and alternatives with patient/parents/legal guardian/POA. Questions invited. The patient/parents/legal guardian/POA seems to understand and agrees to proceed with anesthesia plan. Reviewed the physical assessment, medical history, allergy history and patient home medications list prior to surgery/procedure/anesthetic and documented any changes. Performed airway and anesthesia risk assessments. Anesthesia Type Anesthesia Type: MAC History Source History Obtained from:: Patient and Chart Anesthesia Focused Assessment* Temperature: 98.4 F Pulse Rate: 72 Blood Pressure: 99/63 Respiratory Rate: 18 Pulse Ox: 96 Oxygen Delivery Method: Room Air Airway Assessment Mouth opens: >3 cm Mallampati Score: IV Teeth Condition: Dentures (Upper and lower dentures are out.) Neck Range of motion (ROM): Limited ROM Focused Labs Anesthesia Preop lab: CBC WBC 4.9 K/mm3 (4.4-11.0) 11/11/24 05:04 11/11/24 RBC 3.22 M/mm3 (4.6-6.2) L 11/11/24 05:04 11/11/24 Hgb 11.4 g/dL (13.0-16.5) L 11/11/24 05:04 5 Hct 33.0 % (40-54) L 11/11/24 05:04 11/11/24 Plt Count 53 K/mm3 (150-450) L 11/11/24 05:04 11/11/24 CHEMISTRY Potassium 4.7 mmol/L (3.3-5.1) 11/11/24 05:04 11/11/24 Sodium 131 mmol/L (133-145) L 11/11/24 05:04 11/11/24 Magnesium 2.3 mg/dL (1.5-2.2) H 10/14/24 20:10 10/14/24 Phosphorus 2.5 mg/dL (2.7-4.5) L 10/16/24 08:08 10/16/24 BUN 67 mg/dL (4-19) H 11/11/24 05:04 11/11/24 Creatinine 1.69 mg/dL (0.70-1.20) H 11/11/24 05:04 Glucose 119 mg/dL (70-99) H 11/11/24 05:04 11/11/24 POC Glucose 120 mg/dL (74-106) H 11/12/24 12:47 11/12/24 TSH 2.550 uIU/mL (0.300-4.200) 10/15/24 05:34 03/2 02/12 COAG PT 16.9 SECONDS (11.7-14.9) H 10/22/24 08:35 04/0 10/13 Pre-Assessment Diagnosis/Proposed Procedure Planned Operative Procedure(s): (R) Pleurex Catheter Placement, Abdominal Anesthesia History Anesthesia History - phlebotomy specialist: Anesthesia History - phlebotomy specialist Hx Hospitalization Yes: 09/2024-FELL THEN TO TCU 11/20/24 09:56 Any Problems With Anesthesia No 11/20/24 09:56 Cholinesterase deficiency No 11/20/24 09:56 You/Your Family Experience No 11/20/24 09:56 fever (hyperthermia) with Relationship Recent Exposure to Contagious No 11/26/24 11:27 Disease Does patient have nerve No 11/20/24 09:56 stimulator Patient instructed to have device shut off --Does patient have Pacemaker No 11/26/24 11:27 or ICD? When Was Last Pacemaker Check QUESTION #4 FULL TEXT: You/Your Family Experience fever (hyperthermia) with Anesthesia Last Oral Intake Last Oral intake: Last Oral Intake NPO since 00:00 11/26/24 11:27 Meds taken in AM with sips of No 11/26/24 11:27 water? Meds patient instructed to take am of surgery PONV PONV - phlebotomy specialist: PONV - phlebotomy specialist Female No 11/20/24 09:56 HX of Motion Sickness No 11/20/24 09:56 HX of N/V After Surgery No 11/20/24 09:56 Non-Smoker Yes 11/20/24 09:56 Duration of Surgery greater No 11/20/24 09:56 than 60 minutes Number of Risk Factors 1 11/20/24 09:56 PONV Score Low Risk 11/20/24 09:56 Height & Weight Height & Weight: Anesthesia: Height & Weight Height 5 ft 6 in 11/26/24 11:27 Weight: 77.111 kg 11/26/24 11:27 Body Mass Index (BMI) 27.4 11/26/24 11:27 Respiratory Assessment Respiratory Assessment - phlebotomy specialist: Respiratory Tract Infection Hx - phlebotomy specialist Hx Respiratory Tract Infection No 11/20/24 09:56 STOP Sleep Apnea STOP Sleep Apnea - phlebotomy specialist: STOP Sleep Apnea - phlebotomy specialist Hx Hypertension Yes 11/20/24 09:56 Hx Sleep Apnea No 11/20/24 09:56 CPAP No 10/20/24 14:51 BIPAP No 10/20/24 14:51 Do you snore loudly (louder No 11/20/24 09:56 than talking or can be heard Do you often feel tired/ No 11/20/24 09:56 fatigued/ sleepy during daytime? Has anyone observed you stop No 11/20/24 09:56 breathing during sleep? STOP Results Negative 11/20/24 09:56 QUESTION #5 FULL TEXT : Do you snore loudly (louder than talking or can be heard through closed doors)? Tobacco Use History Tobacco Use History - phlebotomy specialist: Tobacco Use History - phlebotomy specialist Tobacco Use Smoking Status Former smoker 11/20/24 09:56 Hx Tobacco Use Yes 11/20/24 09:56 Years Smoking Packs Smoked per Day Smoking Cessation Date was Yes - quit smoking within 15 11/20/24 09:56 within the last 15 years years Hx Smoking Cessation Date 07/22/19 11/20/24 09:56 Hx Smoking Cessation Counseling Hematologic Medial History Hematologic Hx - phlebotomy specialist: Hematologic Medical Hx - [place] [employer] Hx of Blood Transfusion No 11/20/24 09:56 Hx of Transfusion in last 3 No 11/20/24 09:56 Months Date of Last Transfusion (if within last 3 months) Ever experience any problems No 11/20/24 09:56 with transfusion(s)? Specify any problems Hx of Preganancy in last 3 N/A 11/20/24 09:56 Months Nurse Filling Out Transfusion [id number] 11/20/24 09:56 & Questions: Date: 11/20/24 11/20/24 09:56 Time: 10:02 11/20/24 09:56 Patient unable to answer at this time (ie. confused, unrespo /Reproduction History /Reproductive History - phlebotomy specialist: /Reproductive Hx- phlebotomy specialist Hx Now Gestational Age (in weeks): EDC: Hx Hx Para Hx Section SAB Active Medications Active Medications: Current Medications Generic Name Dose Route Start Last Admin Trade Name Freq PRN Reason Stop Dose Admin Lactated Ringer's 1,000 mls @ 15 mls/hr 11/26/24 11:15 11/26/24 11:30 IV 15 mls/hr .Q48H JUDITH Administration PFSH Medical History Wears glasses Anxiety Arthritis Walker as ambulation aid History of edema History of echocardiogram Debility Abdominal ascites Wears dentures Bruising Prostate disease Restless legs History of diverticulitis Former smoker History of stress test Anemia due to gastrointestinal blood loss Bleeding external hemorrhoids Pilonidal cyst Macular degeneration Depression BPH (benign prostatic hyperplasia) High cholesterol Hypertension History of COVID-19 Hx of fracture of rib Home Medications ?Medication ?Instructions ?Recorded ?Last Taken ?Type tamsulosin 0.4 mg capsule 0.4 mg PO BID BPH 03/09/21 0 10/14/24 History nitroglycerin 0.4 mg sublingual 0.4 mg sublingual Q5M chest pain 08/01/23 Unknown History tablet rifaximin 550 mg tablet (Xifaxan) 550 mg PO BID liver 10/08/24 10/14/24 History zinc sulfate 50 mg zinc (220 mg) 100 mg PO DAILY zinc supplement 10/14/24 10/14/24 History capsule (Orazinc) acetaminophen 500 mg tablet 1,000 mg (2 x 500 mg) PO Q 8 #0 tabs 11/12/24 Unknown Rx pramipexole 0.125 mg tablet 0.125 mg PO PRN PRN restle ss legs 11/12/24 Unknown Rx #0 tabs lorazepam 0.5 mg tablet (Ativan) 0.5 mg PO Q4H PRN anx iety 11/20/24 Unknown History ondansetron 4 mg disintegrating 4 mg PO Q8H PRN PRN na usea 11/20/24 Unknown History tablet oxycodone 5 mg tablet 5 mg PO Q6H PRN PRN pain 09/15 Unknown History escitalopram oxalate 10 mg tablet 10 mg PO QDAY Unknown History lactulose 10 gram/15 mL oral 10 g PO TID 11/25/24 Unkn own History solution Allergy/AdvReac Type Severity Reaction Status Date / Time amoxicillin (From Augmentin) Allergy Other Verified 11/26/24 11:23 clavulanic acid (From Allergy Other Verified 11/26/24 11:23 Augmentin) lisinopril AdvReac Other Verified 11/26/24 11:23 Family History Mother Cancer Sister Cancer Other Heart disease Surgical History History of cataract surgery History of excision of pilonidal cyst History of herniorrhaphy Social History household members: spouse Smoking Status: Former smoker alcohol intake: current alcohol intake frequency: other substance use type: does not use Review of Systems (Anesthesia) ROS Narrative System reviewed and no additional complaints, except as documented.
--- NOTE | 2024-11-26 11:46 | PCM.HP.BLA ---
History and Physical Date of Admission: 11/26/24 Intake Vital Signs 11/11/2513:44 11/25/2512:34 Height 5 ft 2 in BP 97/65 Blood Pressure Location Lt brachial Position Sitting Respiration 17 Pulse 80 Pulse Source Monitor Pulse Oximetry (%) 94 Oxygen Delivery Method room air Intake Visit Reasons: PLEUREX CATH Chief Complaint: pleurex Is patient in pain?: Yes Allergies amoxicillin (From Augmentin) Allergy (Verified 11/25/24 13:35) Otherclavulanic acid (From Augmentin) Allergy (Verified 11/25/24 13:35) Otherlisinopril Adverse Reaction (Verified 11/25/24 13:35) Other Medications ?Medication ?Instructions ?Recorded ?Confirmed ?Type tamsulosin 0.4 mg capsule 0.4 mg PO BID BPH 03/09/21 11/25/24 History nitroglycerin 0.4 mg sublingual 0.4 mg sublingual Q5M chest pain 08/01/23 11/25/24 History tablet rifaximin 550 mg tablet (Xifaxan) 550 mg PO BID liver 10/08/24 11/25/24 History zinc sulfate 50 mg zinc (220 mg) 100 mg PO DAILY zinc supplement 10/14/24 11/25/24 History capsule (Orazinc) acetaminophen 500 mg tablet 1,000 mg (2 x 500 mg) PO Q8 #0 tabs 11/12/24 11/25/24 Rx pramipexole 0.125 mg tablet 0.125 mg PO PRN PRN restless legs 11/12/24 11/25/24 Rx #0 tabs lorazepam 0.5 mg tablet (Ativan) 0.5 mg PO Q4H PRN anxiety 11/20/24 11/25/24 History ondansetron 4 mg disintegrating 4 mg PO Q8H PRN PRN nausea 11/20/24 11/25/24 History tablet oxycodone 5 mg tablet 5 mg PO Q6H PRN PRN pain 11/20/24 11/25/24 History escitalopram oxalate 10 mg tablet 10 mg PO QDAY 11/25/24 11/25/24 History lactulose 10 gram/15 mL oral 10 g PO TID 11/25/24 11/25/24 History solution Have you fallen in the past year?: Yes [facility] Medical History Wears glasses Anxiety Arthritis Walker as ambulation aid History of edema History of echocardiogram Debility Abdominal ascites Wears dentures Bruising Prostate disease Restless legs History of diverticulitis Former smoker History of stress test Anemia due to gastrointestinal blood loss Bleeding external hemorrhoids Pilonidal cyst Macular degeneration Depression BPH (benign prostatic hyperplasia) High cholesterol Hypertension History of COVID-19 Hx of fracture of rib Surgical History History of cataract surgery History of excision of pilonidal cyst History of herniorrhaphy Family History Mother CancerSister CancerOther Heart disease Social History household members: spouse Smoking Status: Former smoker alcohol intake: current alcohol intake frequency: other substance use type: does not use HPI HPI HPI: Patient is an 84-year-old male here for liver cancer and recurrent malignant ascites. The patient has been having paracentesis weekly. Patient is enrolled in hospice care. ROS General General: Yes weight change and fatigue; No appetite, colon cancer, breast cancer or weakness HEENT HEENT: No difficulty swallowing, eye injury, eye surgery, swollen glands or hoarseness Endo Endocrine: No thyroid disease, diabetes mellitus, thyroid cancer, Hair loss, heat intolerance or cold intolerance Skin Skin: No rash or changing moles Musc Musculoskeletal: No back problems, arthritis, rheumatoid arthritis, gout or joint pain Cardio Cardiovascular: Yes high blood pressure; No murmur, pacemaker, heart disease, atrial fibrillation, heart attack, heart stent, palpitations, shortness of breath with exertion or chest pain Psych Psychiatric: Yes depression and anxiety; No hearing voices Resp Respiratory: No shortness of breath, No sleep apnea, No cough, No COPD, No asthma, No emphysema and No wheezing Gastro Gastrointestinal: Yes abdominal pain, No nausea or vomiting, No diarrhea, No constipation, No blood in stool, No acid reflux, No hemorrhoids, No ulcers, No gallbladder problem and No black,tarry stools Bunny Hematologic: No blood thinners, No blood disorders, No bleeding, No anemia and No blood clots Neuro Neurologic: No system reviewed and no additional complaints, except as documented, No as per HPI, No abnormal gait, No abnormal hearing, No abnormal movements, No abnormal speech, No behavioral changes, No burning sensations, No confusion, No convulsions, No disequilibrium, No dizziness, No localized weakness, No frequent falls, No headache(s), No lack of coordination, No loss of vision, No memory loss, No numbness, No other visual disturbances, No radicular pain, No restless legs, No sensory deficit, No syncope, No tingling, No tremor(s), No weakness and No other Exam Const General: cooperative Orientation: alert and oriented x3 HENWI Head: normal to inspection Neck Neck: normal visual inspection and full ROM Chest Chest palpation & inspection: normal inspection of the chest Resp Effort & Inspection: normal respiratory effort Auscultation: clear to auscultation bilaterally Cardio Rate: regular rate Rhythm: regular rhythm GI Inspection: non-distended Palpation: soft and nontender Skin General: no rashes or lesions noted Neuro General: patient alert and patient oriented x3 Extrem General: full ROM Psych Appearance: grossly normal Mental Status: mental status grossly normal Assessment and Plan Assessment and Plan (1) History of hepatocellular carcinoma: Status: Acute Plan: 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 I discussed placing an abdominal Pleurx catheter for management of his ascites. I discussed the procedure in detail with the patient and the patient's family. I discussed the risks including but not limited to bleeding, infection, injury to underlying organs. Patient understands the risks and is willing to proceed. Travis Sampson MD Pager: [facility] [address] [place] [address], [address] [place] [address] Office: I have seen the patient and reviewed [facility] H&P and there are no clinical changes
--- NOTE | 2024-11-26 12:13 | OP.PCM_ITS ---
Operative Report (Standard) Operative Information Date of Procedure: 11/26/24 Pre-Operative Diagnosis: Malignant ascites Post-Operative Diagnosis: Malignant ascites Surgery/Procedure Performed: Ultrasound-guided Pleurx abdominal catheter placement scalehouse attendant: No Type of Anesthesia: Local MAC RN Documented Start/Stop Times: Operation Date: 11/26/24 12:30 Case Time Into Pre-Op 11/26/24 10:59 Out of Pre-Op 11/26/24 11:49 Anesthesia Start 11/26/24 11:54 Into Room 11/26/24 11:54 Procedure Start 11/26/24 12:01 Procedure End 11/26/24 12:08 Procedure Start Time: 12:01 Procedure Stop Time: 12:08 Select all DRAINS/GRAFTS/IMPLANTS that apply: Drains Drain details: Pleurx catheter Estimated Blood Loss: 2 Specimen collected: No Description of surgery: The patient was brought back to the operating room and MAC anesthesia was induced. The right abdomen was prepped and draped in usual sterile fashion. Ultrasound used to localize a pocket of fluid. It was marked. Local anesthetic was injected into the skin in 2 areas. An incision was made in each area. The catheter was tunneled from the lower incision to the upper incision. Next through the upper incision a needle was placed into the pocket of fluid. The guidewire was placed without resistance. Next the introducer was removed and a peel-away sheath was placed over the guidewire. The guidewire was removed. The catheter was placed through the peel-away sheath and it was removed. The catheter was connected to suction. I drained 2 L of ascites from the abdomen. The upper incision was closed with 3-0 Vicryl suture and the catheter was sutured to the skin using 3-0 nylon. Dressings were applied. The catheter was capped at the end. Surgical Findings: 2 L of ascites was drained Complications Complications: No Admit VTE Documentation VTE Mechan Device Prophylaxis: SCD's
--- NOTE | 2024-11-26 12:16 | EX.PCM.DISCH ---
Discharge Instructions Diet Discharge Diet: Light diet - advance as tolerated Activity Discharge Activity: Return to Normal Activity Dressing / Incision Call your doctor if your incision/area has: Continuous Slow Oozing, Sudden Increased Bleeding, Increased Pain/ Swelling, Increased Redness, Foul Smelling Discharge and Swelling at the incision site Call your doctor if you observe: Fever of 101 or Higher Cleanse incision/area with: Soap & Water Follow Up Care Please Follow Up With: Travis Sampson MD When: as needed. [phone] Test Results: Test results from this visit will be discussed in further detail at your follow-up appointment, if applicable. Discharge Plan Admission Attending Provider: Travis Sampson Primary Care Provider: Adam Lynn Instructions Print Language: Andorran Discharge Orders/Prescriptions Prescriptions: No Action escitalopram oxalate 10 mg tablet 10 mg PO QDAY lactulose 10 gram/15 mL solution 10 g PO TID tamsulosin 0.4 mg Capsule 0.4 mg PO BID nitroglycerin 0.4 mg tablet, sublingual 0.4 mg sublingual Q5M Rx Instructions: do not exceed 3 doses per episode zinc sulfate [Orazinc] 50 mg zinc (220 mg) capsule 100 mg PO DAILY Xifaxan 550 mg tablet 550 mg PO BID acetaminophen 500 mg Tablet 1,000 mg PO Q8 Qty: 0 0RF pramipexole 0.125 mg Tablet 0.125 mg PO PRN PRN (Reason: restless legs) Qty: 0 0RF lorazepam [Ativan] 0.5 mg tablet 0.5 mg PO Q4H PRN (Reason: anxiety) ondansetron 4 mg tablet,disintegrating 4 mg PO Q8H PRN PRN (Reason: nausea) oxycodone 5 mg tablet 5 mg PO Q6H PRN PRN (Reason: pain) Referrals / Follow Up: Adam Lynn MD [Primary Care Provider] - Disposition Disposition (needs filled in before D/C Order can be placed): Home, Self Care
--- NOTE | 2024-11-26 13:48 | PCM.POST.ANE ---
Anesthesia: Postop Eval I Current Vital Signs Temperature: 98.3 F Pulse Rate: 52 Blood Pressure: 124/61 Respiratory Rate: 18 Pulse Ox: 97 Oxygen Delivery Method: Room Air Assessment Airway patent: Yes Spontaneous unlabored respirations: Yes nausea: No Vomiting: No Anesthesia Complication: No Fluid Hydration Crystalloid volume administer (ml): 250 Total IV fluid infused: 250 Progress Note Anesthesia document: Postop Eval 1 completed: Yes
--- NOTE | 2024-11-26 15:36 | POSTOPAN2_ITS ---
Anesthesia Postop Eval I Sum Postop Eval Completion status Anesthesia document: Postop Eval 1 completed: Yes Anesthesia Postop Eval I Summary Anesthesia Postop Eval I Summary: Anesthesia Postop Eval I: Assessment Summary Airway patent Yes 11/26/24 13:49 [email or web address].[email or web address] Spontaneous unlabored Yes 11/26/24 13:49 [employer].ACAR respirations Mental status nausea No 11/26/24 13:49 [employer]AR[employer].ACAR Vomiting No 11/26/24 13:49 [employer]AR[employer].ACAR Anesthesia Postop Eval I: Fluid Summary Crystalloid volume administer 250 11/26/24 13:49 [employer].ACAR (ml) Colloids volume administered ( ml) Blood Product volume administered (ml) Total IV fluid infused 250 11/26/24 13:49 [employer].ACAR Anesthesia Postop Eval I: Summary Notes Anesthesia Complication No 11/26/24 13:49 [employer]AR[employer].ACAR Anesthesia Complication Comment: Post-operative progress note Anesthesia: Postop Eval II Evaluation Mental status: Awake and Calm Pain Level: 0 nausea: No Vomiting: No Complications Anesthesia Complication: No
--- NOTE | 2024-11-26 15:36 | PCM.POSTANE2 ---
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
== END 2024-11-26 14:29 | disposition home or self-care (01) ==
LOC: SDC 10:57 → AC 10:57
PROVIDERS: PCP Family Medicine; Referring Provider Family Medicine; Visit Provider Surgery
PROC: (CPT 32550; principal; 2024-11-26 12:15)
DX: C22.0 Liver cell carcinoma (principal); R18.0 Malignant ascites; Z86.16 Personal history of COVID-19; Z87.891 Personal history of nicotine dependence
CPT/HCPCS: 49418; 00790; C1729; J2405